=== PATIENT | male | born 1955 | race African-American/Black ===

== ENCOUNTER 2020-08-04 13:26 | Inpatient (IN) | payer OTHER, MEDICAID, SELFPAY ==
--- NOTE | ~2020-08-04 | CT_ITS ---
EXAMINATION: CT HEAD WITHOUT CONTRAST CLINICAL INFORMATION: AMS. COMPARISON: None TECHNIQUE: Contiguous axial imaging was performed from the skull base to vertex without intravenous administration of contrast. This CT examination was performed using dose optimization techniques as appropriate, variously including the following: *Automated exposure control *Adjustment of mA and/or kV according to patient size (this includes techniques or standardized protocols for targeted exams where dose is matched to indication/reason for exam; i.e. extremities or head) *Use of iterative reconstruction technique DLP: 742 mGy-cm FINDINGS: There is no evidence of acute intracranial hemorrhage or territorial infarction. No abnormal mass effect or midline shift is seen. Perez to white matter differentiation is well preserved. No extra-axial fluid collections are identified. The lateral ventricles are symmetrical but moderately enlarged. There is moderate prominence of cortical sulci as well. There is diffuse periventricular hypodensity in both cerebral hemispheres without mass effect or edema. There is midline anterior dural dense calcification. The osseous structures and soft tissues are normal. The mastoid air cells and visualized portions of the paranasal sinuses are well aerated. CT/CT head/brain wo con IMPRESSION: No acute intracranial process seen. There is moderate cerebral volume loss with chronic small vessel microangiopathy.
--- NOTE | ~2020-08-04 | XR_ITS ---
EXAMINATION: XR CHEST CLINICAL INFORMATION: Shortness of breath COMPARISON: None TECHNIQUE: Frontal view of the chest was obtained. FINDINGS: The lungs are hypoinflated which limits assessment. Patchy opacities at the left lung base and right midlung. No significant pleural effusion. No pneumothorax. Heart size is normal. No acute osseous abnormality. XR/XR chest 1V IMPRESSION: Small ill-defined opacities bilaterally, nonspecific. Assessment is limited by suboptimal patient positioning and hypoventilatory state. Consider repeat views with formal PA and lateral full inspiratory radiographs.
[2020-08-04 13:31] VITALS: BP 127/77; PULSE 85; RESP 18; TEMP 36.5; BMI 25.7
--- NOTE | 2020-08-04 13:34 | ED_ITS ---
HPI - Psych General Chief Complaint: Psychiatric Symptoms Stated Complaint: CRISIS Time Seen by Provider: 08/04/20 13:34 Source: EMS and RN notes reviewed Mode of arrival: EMS Limitations: altered mental status History of Present Illness MD complaint: other (refusal to take meds, agitation, aggression) Onset (ago): day(s) (since arrival at facility this week) Duration: intermittent History of same: Yes Relieving factors: none Exacerbating factors: none Context: not taking psychiatric medications Associated psychiatric symptoms: none Associated symptoms: denies other symptoms Treatments prior to arrival: placed on mental health hold Related Data Home Medications Medication Instructions Recorded Confirmed amlodipine 2.5 mg PO DAILY@89908/04/20 08/04/20 aspirin 81 mg PO DAILY@89908/04/20 08/04/20 cholecalciferol (vitamin D3) 25 mcg PO DAILY 08/04/20 08/04/20 divalproex 1,000 mg PO BEDTIME 08/04/20 08/04/20 divalproex [Depakote Sprinkles] 750 mg PO DAILY 08/04/20 08/04/20 escitalopram oxalate 20 mg PO BEDTIME 08/04/20 08/04/20 famotidine 40 mg PO DAILY@89908/04/20 08/04/20 lisinopril 40 mg PO DAILY 08/04/20 08/04/20 olanzapine 5 mg PO DAILY 08/04/20 08/04/20 olanzapine 10 mg PO BEDTIME 08/04/20 08/04/20 simvastatin 20 mg PO BEDTIME 08/04/20 08/04/20 trazodone 100 mg PO BEDTIME 08/04/20 08/04/20 Allergies Allergy/AdvReac Type Severity Reaction Status Date / Time atenolol Allergy Unknown Verified 08/04/20 13:37 duloxetine [From Cymbalta] Allergy Unknown Verified 08/04/20 13:37 ibuprofen Allergy Unknown Verified 08/04/20 13:37 levofloxacin [From Levaquin] Allergy Unknown Verified 08/04/20 13:37 Review of Systems Review of Systems: ROS unable to be obtained due to altered mental status PMFSH Past Medical History Attestation statement: The following information was validated with the patient. Medical History (Updated 08/04/20 @ 15:58 by Maricel Stover DO) Advanced dementia HTN (hypertension) Social History Social History (Updated 08/04/20 @ 14:07 by Maricel Stover DO) Patient Tobacco Use Status: Tobacco use Unknown Use of substances other than those prescribed or required for medical reasons: No Advance Directives: Yes Advance Directives Information Provided: No Advance Directives on File: No Physical Exam Vital Signs: Vital Signs: Last Vital Signs Temp 97.7 F 08/04/20 13:31 Pulse 85 08/04/20 13:31 Resp 18 08/04/20 13:31 BP 127/77 08/04/20 13:31 Body Mass Index 25.7 Appearance: Alert. intermittently agitated tracking staff, opens eyes to voice Eyes: Pupils equal, round and reactive to light. ENT: Pharynx normal. Neck: Normal inspection. Neck supple. CVS: Pulses normal. Respiratory: Breath sounds normal. Abdomen: Soft and non-tender. Skin: Skin warm and dry. Normal skin color. Normal skin turgor. Extremities: No lower extremity edema. No calf ttp Neuro: tracks with eyes. moves all extremities. Course Course Course Narrative: call from Elisabet HOWARD psychiatrist at [facility] - present there for possibly 2 weeks 2 days increased agitation, aggressive, not able to being managed, patient not taking medications, they cannot manage him at their facility. IM zyprexa for aggression ordered, attempting to punch staff Na 158 will need admission after further workup. fluids ordered hospitalists notified 430pm for admission, fluids ordered MDM - Psych MDM Narrative Medical decision making narrative: 64 yo male just [facility] due to medical issue at facility with aggressive behaviors they cannot manage him sent to ED - CM involved, medical clearance, disposition is going to be prolonged at this time Lab Data Result diagrams: 08/04/20 15:09 08/04/20 15:09 Labs: Lab Results 08/04/20 08/04/20 08/04/20 Range/Units 15:09 15:09 15:09 WBC 9.3 (4.8-10.8) X10*3/uL RBC 5.41 (4.60-5.80) X10*6/uL Hgb 15.4 (14.0-18.0) g/dl Hct 48.2 (42-52) % MCV 89.1 (80-98) fL MCH 28.5 (27.0-33.0) pg MCHC 32.0 (31.0-36.0) g/dl RDW 13.6 (11.0-16.0) % Plt Count 117 L (160-400) X10*3/uL MPV 10.5 (9.4-12.4) fL Immature Gran % (Auto) 0.2 (0.0-0.4) % Neut % (Auto) 77.0 H (45-73) % Lymph % (Auto) 13.4 L (20-40) % [place] % (Auto) 9.0 (2-11) % Eos % (Auto) 0.2 (0-4) % Baso % (Auto) 0.2 (0-2) % Lymph # (Auto) 1.3 (1.2-4.9) X10*3/uL [place] # (Auto) 0.8 (0.1-1.2) X10*3/uL Eos # (Auto) 0.0 (0.0-0.4) X10*3/uL Baso # (Auto) 0.0 (0.0-0.2) X10*3/uL Abs Immat Gran (auto) 0.02 (0.00-0.03) X10*3/uL Absolute Neuts (auto) 7.2 (2.0-8.3) X10*3/uL Absolute Nucleated RBC 0.000 (0.0-0.012) X10*3/uL Nucleated RBC % (auto) 0.0 (0.0-0.2) /100WBC PT (10.8-13.0) SEC INR (0.9-1.1) APTT (24.1-38.0) SEC Sodium 158 H (135-145) mmol/L Potassium 3.9 (3.3-5.1) mmol/L Chloride 119 H (96-108) mmol/L Carbon Dioxide 30 H (22-29) mmol/L Anion Gap 13 (12-20) BUN 34 H (9-16) mg/dL Creatinine 1.21 (0.5-1.4) mg/dL Estim Creat Clear Calc 68.5 Estimated GFR > 60 Random Glucose 101 (60-115) mg/dL Calcium 9.6 (8.4-10.2) mg/dL Magnesium (1.6-2.6) mg/dL Total Bilirubin (0.0-1.0) mg/dL Direct Bilirubin (0.0-0.5) mg/dL AST (5-37) U/L ALT (0-40) U/L Alkaline Phosphatase (39-117) U/L Ammonia (13-55) umol/L Total Protein (6.5-8.0) g/dL Albumin (3.5-5.0) g/dL Lipase (8-78) U/L Valproic Acid 66.8 (50.0-100.0) mcg/mL COVID-19 (MARBELLA) (Negative) COVID-19 Clin Com 08/04/20 08/04/20 08/04/20 Range/Units 15:09 15:09 15:09 WBC (4.8-10.8) X10*3/uL RBC (4.60-5.80) X10*6/uL Hgb (14.0-18.0) g/dl Hct (42-52) % MCV (80-98) fL MCH (27.0-33.0) pg MCHC (31.0-36.0) g/dl RDW (11.0-16.0) % Plt Count (160-400) X10*3/uL MPV (9.4-12.4) fL Immature Gran % (Auto) (0.0-0.4) % Neut % (Auto) (45-73) % Lymph % (Auto) (20-40) % [place] % (Auto) (2-11) % Eos % (Auto) (0-4) % Baso % (Auto) (0-2) % Lymph # (Auto) (1.2-4.9) X10*3/uL [place] # (Auto) (0.1-1.2) X10*3/uL Eos # (Auto) (0.0-0.4) X10*3/uL Baso # (Auto) (0.0-0.2) X10*3/uL Abs Immat Gran (auto) (0.00-0.03) X10*3/uL Absolute Neuts (auto) (2.0-8.3) X10*3/uL Absolute Nucleated RBC (0.0-0.012) X10*3/uL Nucleated RBC % (auto) (0.0-0.2) /100WBC PT 17.0 H (10.8-13.0) SEC INR 1.4 H (0.9-1.1) APTT 32.0 (24.1-38.0) SEC Sodium (135-145) mmol/L Potassium (3.3-5.1) mmol/L Chloride (96-108) mmol/L Carbon Dioxide (22-29) mmol/L Anion Gap (12-20) BUN (9-16) mg/dL Creatinine (0.5-1.4) mg/dL Estim Creat Clear Calc Estimated GFR Random Glucose (60-115) mg/dL Calcium (8.4-10.2) mg/dL Magnesium (1.6-2.6) mg/dL Total Bilirubin (0.0-1.0) mg/dL Direct Bilirubin (0.0-0.5) mg/dL AST (5-37) U/L ALT (0-40) U/L Alkaline Phosphatase (39-117) U/L Ammonia 53 (13-55) umol/L Total Protein (6.5-8.0) g/dL Albumin (3.5-5.0) g/dL Lipase (8-78) U/L Valproic Acid (50.0-100.0) mcg/mL COVID-19 (MARBELLA) Negative (Negative) COVID-19 Clin Com See Note 08/04/20 Range/Units 15:09 WBC (4.8-10.8) X10*3/uL RBC (4.60-5.80) X10*6/uL Hgb (14.0-18.0) g/dl Hct (42-52) % MCV (80-98) fL MCH (27.0-33.0) pg MCHC (31.0-36.0) g/dl RDW (11.0-16.0) % Plt Count (160-400) X10*3/uL MPV (9.4-12.4) fL Immature Gran % (Auto) (0.0-0.4) % Neut % (Auto) (45-73) % Lymph % (Auto) (20-40) % [place] % (Auto) (2-11) % Eos % (Auto) (0-4) % Baso % (Auto) (0-2) % Lymph # (Auto) (1.2-4.9) X10*3/uL [place] # (Auto) (0.1-1.2) X10*3/uL Eos # (Auto) (0.0-0.4) X10*3/uL Baso # (Auto) (0.0-0.2) X10*3/uL Abs Immat Gran (auto) (0.00-0.03) X10*3/uL Absolute Neuts (auto) (2.0-8.3) X10*3/uL Absolute Nucleated RBC (0.0-0.012) X10*3/uL Nucleated RBC % (auto) (0.0-0.2) /100WBC PT (10.8-13.0) SEC INR (0.9-1.1) APTT (24.1-38.0) SEC Sodium (135-145) mmol/L Potassium (3.3-5.1) mmol/L Chloride (96-108) mmol/L Carbon Dioxide (22-29) mmol/L Anion Gap (12-20) BUN (9-16) mg/dL Creatinine (0.5-1.4) mg/dL Estim Creat Clear Calc Estimated GFR Random Glucose (60-115) mg/dL Calcium (8.4-10.2) mg/dL Magnesium 2.7 H (1.6-2.6) mg/dL Total Bilirubin 0.9 (0.0-1.0) mg/dL Direct Bilirubin 0.4 (0.0-0.5) mg/dL AST 60 H (5-37) U/L ALT 38 (0-40) U/L Alkaline Phosphatase 76 (39-117) U/L Ammonia (13-55) umol/L Total Protein 7.3 (6.5-8.0) g/dL Albumin 4.0 (3.5-5.0) g/dL Lipase 48 (8-78) U/L Valproic Acid (50.0-100.0) mcg/mL COVID-19 (MARBELLA) (Negative) COVID-19 Clin Com ECG Data Attestation: I personally reviewed and interpreted this ECG as follows: ECG interpretation date: 08/04/20 ECG interpretation time: 15:18 Interpretation: Rate: 76 Rhythm: NSR [place]: left Normal P waves. Normal ROD. Normal QRS complex. ST T wave : normal no SET qTC: normal prior studies: no acute ischemia The study has been interpreted contemporaneously by me. . Discharge Plan Discharge Clinical Impression: Acute hypernatremia Dementia Qualifiers: Dementia type: unspecified type Dementia behavioral disturbance: with behavioral disturbance Qualified Code(s): F03.91 - Unspecified dementia with behavioral disturbance Patient Disposition: Admitted As Inpatient
--- NOTE | 2020-08-04 13:38 | ECG_ITS ---
Test Reason : BASELINE Blood Pressure : / mmHG Vent. Rate : 076 BPM Atrial Rate : 076 BPM P-R Int : 160 ms QRS Dur : 108 ms QT Int : 414 ms P-R-T Axes : 066 -72 063 degrees QTc Int : 465 ms Normal sinus rhythm Left axis deviation Abnormal ECG No previous ECGs available Referred By: Maricel Stover Electronically Signed By:Eris Sagastume
[2020-08-04 14:00] VITALS: RESP 18
[2020-08-04] MEDS: OLANZapine 10 MG VIAL IM (14:06)
--- NOTE | 2020-08-04 14:50 | MHC.CM.ED ---
Received case management consult from Dr Stover. Patient came to the ER due to behaviors at [facility]. Patient was admitted to [facility] from [facility] security halfway due to requiring 24 hour care d/t advanced dementia. Dr Stover spoke with psychiatrist at the facility, who stated they will not take the patient back. T/W left a message for Levi [facility] DON via telephone at [phone], requesting a return telephone call. Rima simmons. Continue to monitor for d/c needs.
--- NOTE | 2020-08-04 14:54 | HE.PHANOTE ---
Pharmacy Consult ? Medication Reconciliation Pharmacy has completed the medication reconciliation and there were no significant medication issues requiring provider attention. Patient has IM orders for both Olanzapine AM and PM doses if patient refuses oral intake. Thanks
[2020-08-04 15:17] LABS: Eosinophils Percent Auto 0.2 % (0-4); Hemoglobin 15.4 g/dl (14.0-18.0); PLT CLUMP 1; Red Cell Distribution Width 13.6 % (11.0-16.0); SCAN SMEAR FLAG 1
[2020-08-04 15:19] LABS: Basophils Percent Auto 0.2 % (0-2); Hematocrit 48.2 % (42-52); Imm Gran Abs Auto 0.02 X10*3/uL (0.00-0.03); Imm Gran Pct Auto 0.2 % (0.0-0.4); Lymphocytes Absolute Auto 1.3 X10*3/uL (1.2-4.9); Lymphocytes Percent Auto 13.4 % (20-40); Mean Corpuscular Hemoglobin 28.5 pg (27.0-33.0); Mean Corpuscular Volume 89.1 fL (80-98); Mean Platelet Volume 10.5 fL (9.4-12.4); Monocytes Absolute Auto 0.8 X10*3/uL (0.1-1.2); Neutrophils Absolute Auto 7.2 X10*3/uL (2.0-8.3); Platelet Count 117 X10*3/uL (160-400); Red Blood Count 5.41 X10*6/uL (4.60-5.80); White Blood Count 9.3 X10*3/uL (4.8-10.8)
--- NOTE | 2020-08-04 15:26 | MHC.CM.ED ---
Received voicemail from VERONICA Sims at [facility] requesting return telephone call. Attempted to call twice but unable to leave a voicemail. Levi is currently in a meeting. Rima Campuzano aware. Continue to monitor for d/c needs.
[2020-08-04 15:27] LABS: INTERNATIONAL NORM RATIO 1.4 (0.9-1.1)
[2020-08-04 15:34] LABS: Ammonia 53 umol/L (13-55)
[2020-08-04 15:35] LABS: MANUAL DIFF FLAG NO
[2020-08-04 15:40] LABS: Alanine Aminotransferase 38 U/L (0-40); Alkaline Phosphatase 76 U/L (39-117); Aspartate Amino Transferase 60 U/L (5-37); Bilirubin Direct 0.4 mg/dL (0.0-0.5); Bilirubin Total 0.9 mg/dL (0.0-1.0); Lipase 48 U/L (8-78); Magnesium 2.7 mg/dL (1.6-2.6); Total Protein 7.3 g/dL (6.5-8.0)
[2020-08-04 15:45] LABS: Valproate 66.8 mcg/mL (50.0-100.0)
[2020-08-04 15:46] LABS: Blood Urea Nitrogen 34 mg/dL (9-16); Calcium 9.6 mg/dL (8.4-10.2); Creatinine Clr Calc Pharmacy 68.5; Estimated Glomerular Filt Rate > 60; Glucose Random 101 mg/dL (60-115)
[2020-08-04 15:50] LABS: Anion Gap 13 (12-20); Carbon Dioxide 30 mmol/L (22-29); Chloride 119 mmol/L (96-108); Potassium 3.9 mmol/L (3.3-5.1); Sodium 158 mmol/L (135-145)
[2020-08-04 15:55] LABS: COVID-19 Test Negative (Negative)
[2020-08-04 16:00] VITALS: RESP 18
[2020-08-04] MEDS: 0.9 % Sodium Chloride 1,000 ML 999 ML IVCONT (17:02)
--- NOTE | 2020-08-04 17:17 | PC.NURSE ---
[place] suicide severity scale completed on chart though this rn unable to actually obtain any information from pt, computer would not allow screen to be closed without filling out information, no option available regarding 'unable to obtain'.
[2020-08-04 18:00] VITALS: RESP 18
[2020-08-04 20:00] VITALS: RESP 18
--- NOTE | 2020-08-04 21:58 | PC.NURSE ---
PT'S BED SOILED W/ URINE, LINENS AND HOSPITAL GOWN CHANGED. THIS RN UNABLE TO STRAIGHT CATH PT, RESISTANCE AT PROSTATE. CONDOM CATH APPLIED. PT IN NAD, NO CHG IN PT STATUS.
--- NOTE | 2020-08-04 22:54 | PM.IMHP ---
History of Present Illness Date of Service: 08/04/20 Chief Complaint: psychiatric symptoms This is a 64-year-old male with dementia and hypertension who presents to the hospital from an outside facility with crisis. Patient is completely obtunded after receiving Zyprexa for being completely aggressive and agitated in the ED and therefore history is mostly obtained from ED physician's note. Patient comes from [facility] presents to the hospital for increased agitation, aggression, not able to being managed by the facility staff, refusing medications. It is seems that the facility was unable to manage patient and therefore sent him to the hospital In the hospital patient was also very aggressive, attempting to punch staff, refusing all medical care. He received IM Zyprexa for aggression, Patient was found to have hypernatremia and therefore being admitted to the medical floor. Unable to obtain review of system is patient attended Review of Systems Review of Systems: Yes Unobtainable due to mental status PMFSH Medical History Advanced dementia HTN (hypertension) Social History Household Members: None Housing: Retirement Do you presently have visiting nurse or other home services: No Unable to assess alcohol history related to: Unable to respond Patient Tobacco Use Status: Tobacco use Unknown Use of substances other than those prescribed or required for medical reasons: Unknown Have you been hit, kicked, punched, or otherwise hurt by someone within the past year? If so, by whom?: No Do you feel safe in your current relationship?: No Current Relationship Is there a partner from a previous relationship who is making you feel unsafe now?: No Are you made to feel afraid or neglected: No Advance Directives: Yes Advance Directives Information Provided: No Advance Directives on File: No Advance Directives Date on File: 08/05/20 Do you have thoughts of harming others: None Do you have a plan to hurt others: No Plan Recently lost weight without trying: No Nutrition Risks: No Nutritional Risk Poor oral hygiene: No Meds Allergies Allergy/AdvReac Type Severity Reaction Status Date / Time atenolol Allergy Unknown Verified 08/04/20 13:37 duloxetine [From Cymbalta] Allergy Unknown Verified 08/04/20 13:37 ibuprofen Allergy Unknown Verified 08/04/20 13:37 levofloxacin [From Levaquin] Allergy Unknown Verified 08/04/20 13:37 Active Medications: Current Medications Generic Name Dose Route Start Last Admin Trade Name Jose Armando PRN Reason Stop Dose Admin Pharmacy Consult 1 each 08/04/20 13:37 Consult Rx Perform Med Rec MISCELLANE ONCE PRN Consult order Home Medications Medication Instructions Recorded Confirmed Last Taken Type amlodipine 2.5 mg PO DAILY@0900 08/04/20 08/04/20 08/04/20 History aspirin 81 mg PO DAILY@0900 08/04/20 08/04/20 08/04/20 History cholecalciferol (vitamin D3) 25 mcg PO DAILY 08/04/20 08/04/20 08/04/20 History divalproex 1,000 mg PO BEDTIME 08/04/20 08/04/20 08/04/20 History divalproex [Depakote Sprinkles] 750 mg PO DAILY 08/04/20 08/04/20 08/04/20 History escitalopram oxalate 20 mg PO BEDTIME 08/04/20 08/04/20 08/03/20 History famotidine 40 mg PO DAILY@0900 08/04/20 08/04/20 08/04/20 History lisinopril 40 mg PO DAILY 08/04/20 08/04/20 08/04/20 History olanzapine 5 mg PO DAILY 08/04/20 08/04/20 08/04/20 History olanzapine 10 mg PO BEDTIME 08/04/20 08/04/20 08/03/20 History simvastatin 20 mg PO BEDTIME 08/04/20 08/04/20 08/03/20 History trazodone 100 mg PO BEDTIME 08/04/20 08/04/20 08/03/20 History Physical Exam Vital Signs and Narrative: Vital Signs: Last Vital Signs Temp 97.7 F 08/04/20 13:31 Pulse 85 08/04/20 13:31 Resp 18 08/04/20 20:00 BP 127/77 08/04/20 13:31 Body Mass Index 25.7 Const: Other: Patient obtunded, but noted to be very aggressive when arriving to the ED Eyes: General: appearance normal, both eyes and all related structures Resp: Effort & Inspection: normal respiratory effort Cardio: Rate: regular rate Rhythm: regular rhythm GI: Palpation (GI): Soft to palpation Auscultation: normal bowel sounds Skin: General skin exam: no rashes or lesions noted Neuro: Cognition (Neuro): normal cognition Extrem: General: Yes normal to inspection and Yes no pedal edema Results Labs CBC and Chem 7: 08/04/20 15:09 08/05/20 01:20 Labs: Laboratory Results - last 24 hr 08/04/20 08/04/20 08/04/20 15:09 15:09 15:09 MCV 89.1 MCH 28.5 MCHC 32.0 RDW 13.6 Plt Count 117 L MPV 10.5 Immature Gran % (Auto) 0.2 Neut % (Auto) 77.0 H Lymph % (Auto) 13.4 L [place] % (Auto) 9.0 Eos % (Auto) 0.2 Baso % (Auto) 0.2 Lymph # (Auto) 1.3 [place] # (Auto) 0.8 Eos # (Auto) 0.0 Baso # (Auto) 0.0 Abs Immat Gran (auto) 0.02 Absolute Neuts (auto) 7.2 Absolute Nucleated RBC 0.000 Nucleated RBC % (auto) 0.0 PT INR APTT Anion Gap 13 Estim Creat Clear Calc 68.5 Estimated GFR > 60 Random Glucose 101 Calcium 9.6 Magnesium Total Bilirubin Direct Bilirubin AST ALT Alkaline Phosphatase Ammonia Total Protein Albumin Lipase Valproic Acid 66.8 COVID-19 (MARBELLA) COVID-[employer] 08/04/20 08/04/20 08/04/20 15:09 15:09 15:09 MCV MCH MCHC RDW Plt Count MPV Immature Gran % (Auto) Neut % (Auto) Lymph % (Auto) [place] % (Auto) Eos % (Auto) Baso % (Auto) Lymph # (Auto) [place] # (Auto) Eos # (Auto) Baso # (Auto) Abs Immat Gran (auto) Absolute Neuts (auto) Absolute Nucleated RBC Nucleated RBC % (auto) PT 17.0 H INR 1.4 H APTT 32.0 Anion Gap Estim Creat Clear Calc Estimated GFR Random Glucose Calcium Magnesium Total Bilirubin Direct Bilirubin AST ALT Alkaline Phosphatase Ammonia 53 Total Protein Albumin Lipase Valproic Acid COVID-19 (MARBELLA) Negative COVID-19 Clin Com See Note 08/04/20 15:09 MCV MCH MCHC RDW Plt Count MPV Immature Gran % (Auto) Neut % (Auto) Lymph % (Auto) [place] % (Auto) Eos % (Auto) Baso % (Auto) Lymph # (Auto) [place] # (Auto) Eos # (Auto) Baso # (Auto) Abs Immat Gran (auto) Absolute Neuts (auto) Absolute Nucleated RBC Nucleated RBC % (auto) PT INR APTT Anion Gap Estim Creat Clear Calc Estimated GFR Random Glucose Calcium Magnesium 2.7 H Total Bilirubin 0.9 Direct Bilirubin 0.4 AST 60 H ALT 38 Alkaline Phosphatase 76 Ammonia Total Protein 7.3 Albumin 4.0 Lipase 48 Valproic Acid COVID-19 (MARBELLA) COVID-19 Clin Com Imaging Radiologist's Impressions: Impressions Head CT 08/04/20 13:38 IMPRESSION: No acute intracranial process seen. There is moderate cerebral volume loss with chronic small vessel microangiopathy. Assessment and Plan (1) Acute hypernatremia: Status: Acute (2) Encephalopathy: Status: Acute This is a 64-year-old male with past medical history of noted severe dementia as well as hypertension who comes in from psychiatric facility for increased aggression and difficulty to manage found to have hypernatremia # hypernatremia - possibly secondary to dehydration - will start him on half NS - follow BMP closely - nephrology consulted # increased aggression/encephalopathy/psychosis - unlikely secondary to hypernatremia - psychiatrist at facility reported to ED physician the patient refusing medications - possibly as a result of his documented advanced dementia/delirium - will consult psychiatry # hypertension - continue lisinopril # mood disorder - continue his home medications DVT prophylaxis Lovenox CPR status: unable to obtain, full code until it can be discussed w him
[2020-08-05] VITALS (21 sets, daily range): BP systolic 111–169; BP diastolic 58–96; PULSE 65–94; RESP 12–19; TEMP 36.7–37.3; O2SAT 95–100
[2020-08-05] MEDS: Sodium Chloride 0.45 % 1,000 ML 100 ML IVCONT (01:06)
[2020-08-05] MEDS: 0.9 % Sodium Chloride Flush 3 ML SYRINGE IVFLUSH (01:29)
[2020-08-05 02:04] LABS: Anion Gap 20 (12-20); Blood Urea Nitrogen 28 mg/dL (9-16); Calcium 9.3 mg/dL (8.4-10.2); Carbon Dioxide 19 mmol/L (22-29); Chloride 123 mmol/L (96-108); Creatinine Clr Calc Pharmacy 69.7; Estimated Glomerular Filt Rate > 60; Glucose Random 82 mg/dL (60-115); Sodium 156 mmol/L (135-145)
--- NOTE | 2020-08-05 02:43 | PC.NURSE ---
0210 lab called with a critical k+-6.0 .blood may have been hemolyzed per lab. notified.
--- NOTE | 2020-08-05 02:48 | PC.NURSE ---
0030 pt came up from er in soft restraints to edward wrists.behavioral restraint ordered obtained from .pt is agitated,aggressive,swearing,confused.1:1 sitter at bedside
--- NOTE | 2020-08-05 04:40 | PC.NURSE ---
0430 pt sleeping.soft wrist restaints released.sitter remains at bedside.
[2020-08-05] MEDS: Enoxaparin Sodium 40 MG/0.4 ML SYRINGE SUBCUT (06:31)
[2020-08-05 06:48] LABS: MANUAL DIFF FLAG NO
[2020-08-05 07:15] LABS: Basophils Percent Auto 0.3 % (0-2); Eosinophils Percent Auto 0.3 % (0-4); Hematocrit 50.5 % (42-52); Hemoglobin 15.6 g/dl (14.0-18.0); Imm Gran Abs Auto 0.05 X10*3/uL (0.00-0.03); Imm Gran Pct Auto 0.4 % (0.0-0.4); Lymphocytes Absolute Auto 1.3 X10*3/uL (1.2-4.9); Lymphocytes Percent Auto 9.9 % (20-40); Mean Corpuscular HGB Conc 30.9 g/dl (31.0-36.0); Mean Corpuscular Hemoglobin 28.4 pg (27.0-33.0); Mean Corpuscular Volume 91.8 fL (80-98); Mean Platelet Volume 10.8 fL (9.4-12.4); Monocytes Absolute Auto 1.3 X10*3/uL (0.1-1.2); Monocytes Percent Auto 9.6 % (2-11); Neutrophils Absolute Auto 10.6 X10*3/uL (2.0-8.3); Neutrophils Percent Auto 79.5 % (45-73); Platelet Count 125 X10*3/uL (160-400); Red Cell Distribution Width 13.8 % (11.0-16.0); White Blood Count 13.4 X10*3/uL (4.8-10.8)
[2020-08-05 07:26] LABS: Anion Gap 16 (12-20); Blood Urea Nitrogen 24 mg/dL (9-16); Calcium 9.3 mg/dL (8.4-10.2); Carbon Dioxide 25 mmol/L (22-29); Chloride 120 mmol/L (96-108); Creatinine Clr Calc Pharmacy 89.2; Estimated Glomerular Filt Rate > 60; Glucose Random 79 mg/dL (60-115); Potassium 4.5 mmol/L (3.3-5.1); Sodium 156 mmol/L (135-145)
--- NOTE | 2020-08-05 08:13 | P.PNIM_ITS ---
Subjective Subjective Date of Service: 08/05/20 Interval History: Seen in f/u for hypernatremia, He is completely demented and is not able to participate in any conversation Review of Systems ROS unable to be obtained due to altered mental status Physical Exam Vital Signs: Vital Signs: Last Vital Signs Temp 98.9 F 08/05/20 07:38 Pulse 76 08/05/20 07:38 Resp 16 08/05/20 07:38 BP 111/58 L 08/05/20 07:38 Pulse Ox 98 08/05/20 07:38 Body Mass Index 25.7 Const: Other: Patient obtunded, but noted to be very aggressive when arriving to the ED Eyes: General: appearance normal, both eyes and all related structures Resp: Effort & Inspection: normal respiratory effort Cardio: Rate: regular rate Rhythm: regular rhythm GI: Palpation (GI): Soft to palpation Auscultation: normal bowel sounds Skin: General skin exam: no rashes or lesions noted Neuro: Cognition (Neuro): normal cognition Extrem: General: Yes normal to inspection and Yes no pedal edema Objective Data Current Medications Generic Name Dose Route Start Last Admin Trade Name Freq PRN Reason Stop Dose Admin Acetaminophen 650 mg 08/05/20 00:34 Acetaminophen 325 Mg Tablet PO Q6H PRN Pain, Mild (Pain Scale 1-3) Amlodipine Besylate 2.5 mg 08/05/20 09:00 Amlodipine Besylate 2.5 Mg Tablet PO DAILY@0900 COUNTS INCLUDE 234 BEDS AT THE [facility] Protocol Aspirin 81 mg 08/05/20 09:00 Aspirin 81 Mg Tab.Chew PO DAILY@0900 COUNTS INCLUDE 234 BEDS AT THE [facility] Atorvastatin Calcium 10 mg 08/05/20 21:00 Atorvastatin Calcium 10 Mg Tablet PO BEDTIME COUNTS INCLUDE 234 BEDS AT THE [facility] Divalproex Sodium 750 mg 08/05/20 09:00 Divalproex Sodium Sprinkles 125 Mg Cap PO DAILY COUNTS INCLUDE 234 BEDS AT THE [facility] Divalproex Sodium 1,000 mg 08/05/20 21:00 Divalproex Sodium Sprinkles 125 Mg CapSpr PO BEDTIME COUNTS INCLUDE 234 BEDS AT THE [facility] Docusate Sodium 100 mg 08/05/20 00:34 Docusate Sodium 100 Mg Capsule PO DAILY PRN Constipation Enoxaparin Sodium 40 mg 08/05/20 07:00 08/05/20 06:31 Enoxaparin Sodium 40 Mg/0.4 Ml Syringe SUBCUT 40 mg Q24H COUNTS INCLUDE 234 BEDS AT THE [facility] Administration Escitalopram Oxalate 20 mg 08/05/20 21:00 Escitalopram Oxalate 20 Mg Tablet PO BEDTIME COUNTS INCLUDE 234 BEDS AT THE [facility] Famotidine 40 mg 08/05/20 09:00 Famotidine 20 Mg Tablet PO DAILY@0900 COUNTS INCLUDE 234 BEDS AT THE [facility] Sodium Chloride 1,000 mls @ 100 mls/hr 08/05/20 00:34 08/05/20 01:06 IVCONT 100 mls/hr .Q10H [facility] Administration Olanzapine 5 mg 08/05/20 09:00 Olanzapine 5 Mg Tablet PO DAILY [facility] Olanzapine 10 mg 08/05/20 21:00 Olanzapine 10 Mg Tablet PO BEDTIME [facility] Olanzapine 10 mg 08/05/20 00:57 Olanzapine 10 Mg Vial IM BEDTIME PRN REFUSAL OF PO DOSE Ondansetron HCl 4 mg 08/05/20 00:34 Ondansetron Hcl 4 Mg/2 Ml Vial IVPUSH Q8H PRN Nausea and Vomiting Pharmacy Consult 1 each 08/04/20 13:37 Consult Rx Perform Med Rec MISCELLANE ONCE PRN Consult order Sodium Chloride 3 ml 08/05/20 00:34 08/05/20 01:29 0.9 % Sodium Chloride Flush 3 Ml Syringe IVFLUSH 3 ml QSHIFT COUNTS INCLUDE 234 BEDS AT THE [facility] Administration Trazodone HCl 100 mg 08/05/20 21:00 Trazodone Hcl 100 Mg Tablet PO BEDTIME COUNTS INCLUDE 234 BEDS AT THE [facility] Vitamin D 25 mcg 08/05/20 09:00 Cholecalciferol (Vitamin D3) 25 Mcg Tablet PO DAILY COUNTS INCLUDE 234 BEDS AT THE [facility] Labs CBC & Chem 7: 08/05/20 06:16 08/05/20 06:16 Assessment and Plan (1) Acute hypernatremia: Status: Acute (2) Encephalopathy: Status: Acute Assessment and Plan: 64-year-old male with past medical history of noted severe dementia as well as hypertension who comes in from psychiatric facility for increased aggression and difficulty to manage found to have hypernatremia # Hypernatremia--d/t free water deficit, dehydation, sodium level is unchanged at 156 -change fluid to D5W from 03/05 NS -Nephrlology consult -Frequent sodium level -Avoid rapid correction. # Hypertension--Normal, continue Norvasc 2.5 # mood disorder - continue Depakote, Celexa, Olanzapine, Trazadoen -Psych to reveiew meds and possible [facility] psych admission - HLD--Lipitor DVT prophylaxis Lovenox Code status: unable to obtain, full code until it can be discusse
[2020-08-05 08:55] LABS: Creatinine Urine 115.73 mg/dL
[2020-08-05 09:01] LABS: Osmolality Urine 686 mosm/kg (373-1093)
--- NOTE | 2020-08-05 10:09 | MHC.CM.PN ---
Addendum entered by Ria Naylor 08/05/20 12:19: CASE DISCUSSED WITH RECOVERY NURSE , SHE INFORMED ME THAT PATIENT GOES TO THE [facility] AT THE [facility] , SHE ALSO USES THE [facility], AND IS ACTIVE WITH [facility] CONFIRMED THIS SHE RECEIVES NURSING 2X Q FOR INSULIN AND MEDICATION MANAGEMENT , DIAGNOSIS ASSESSMENT AND REINFORCEMENT OF SIGN/SYMPTOM MANAGEMENT. SHE WAS ASSIGHNED A NEW DOCTOR AGUSTINA GRIER AT THE [facility] HAS SCHEDULED Appointment for martha zamora for case management office to call and see if we can get her a earlier appointment discharge plan addd [facility] for nsg bid for insulin diagnosis sighn symptom management Original Note: This music writer spoke with Giovani Little and Kerry Perez @ [facility]. They will be taking patient back once medically and psychiatrically cleared. Any questions for [facility] they can be reached @ [phone]
[2020-08-05] MEDS: Dextrose 5 % 1,000 ML 125 ML IVCONT ×3 (12:28→23:50)
[2020-08-05] MEDS: amLODIPine Besylate 2.5 MG TABLET PO (12:30)
--- NOTE | 2020-08-05 12:33 | MHC.CM.PN ---
This song writer spoke with Giovani Little and Kerry Perez @ [facility] [place]. They will be taking patient back once medically and psychiatrically cleared. Any questions for [facility] [place] they can be reached @ [phone]
--- NOTE | 2020-08-05 13:01 | MHC.CM.PN ---
nurse home health care worker note ELECTRONIC MEDICAL RECORD REVIEWED ALONG WITH CASE DISCUSSED WITH STAFF NURSE AND ON MULTIPLE DISCIPLINARY ROUNDS, MET WITH PATIENT , BUT WAS ABLE TO GET ANY MEANINGFUL CONVERSATION FOR ASSESSMENT, CASE MANAGEMENT INITIAL ASSESSMENT GATHERED FROM NURSING HOME HOME INFORMATION AND ELECTRONIC MEDICAL RECORD PATIENT WAS Transferred from [facility] for increased agitation, aggression refusing medications. per documentation patient patient found to have elevated sodium and was admitted to medical surgical floor, per trnasfer patient patients requires assistance with all adls aBD MOBILITY DOCUMENTATED HISTORY OF ( ALZHEMERIS DEMENTIA,BEHAVIORAL DISTURBANCCE, TREMOR, HTN, BRADYCARDIA, ANXIETY, COPD, FALL HISTORY AND OPEN ANGLE GLAUCOMA PATIENT TRANSFER PAPERWORK DOCUMENTED HCP/GUARDIANSHIP HIS SISTER CHRISTEL YANCEY BERNDA ORDER PAPERWORK HCP HAS BEEN ENVOKED AND BRENDA LUDWIG PAPERWORK ALSO WAS SENT AWAITING COPIED OF HCP AND GUARDIANSHIP. PLAN OF CARE PER DOCUMENTATION ON IV FLUIDS MONITORING ALL LABS AND BMP RENAL AND PSYCHIARTY CONSULT . CALLED TO PATIENTS SISTER WINDY AT and MESSAGE LEFT FOR HER TO PLEASE RETURN MY CALL TO REVIEW WITH HER THE MEDICARE IMM D/C PLAN;? PSYCH CLEARANCE IF NEEDED PRIOR TO RETURNN TO [facility] NSG HOME (LTC) GUARDIAN/SISTER -WINDY CHAMBERLAIN HCP HAS BEEN ENVOKED, HAS BRENDA ORDER FOR MEDICATIONS, (AWAITING HCP AND GUARDIANSHIP PAPERWORK FROM [facility]) TRANSPORT BLS ([facility]/MEDICARE WITH BED HOLD
--- NOTE | 2020-08-05 14:42 | CONS_ITS ---
DATE OF SERVICE: 08/05/2020 REASON FOR CONSULTATION: I was called to see this patient to assist in the management of hypernatremia. HISTORY OF PRESENT ILLNESS: To summarize, Sadie is a 64-year-old man with a history of hypertension, dementia, and has extremely poor oral intake. He was brought in because of aggressive behavior and agitation and was found to have severe hypernatremia with a sodium of 160. His oral intake has been poor. He has been started on D5W and sodium is gradually improving. PAST MEDICAL HISTORY: Ongoing medical problems include advanced dementia and hypertension. REVIEW OF SYSTEMS: Not obtainable due to his mentation. All the information obtained from the chart. SOCIAL HISTORY: He is a resident of retirement. MEDICATIONS: At the time of admission included amlodipine, vitamin D, aspirin, Depakote, citalopram, famotidine, lisinopril, olanzapine, simvastatin, trazodone. ALLERGIES: HE IS ALLERGIC TO ATENOLOL, DULOXETINE, IBUPROFEN, LEVOFLOX. PHYSICAL EXAMINATION: GENERAL: Sadie is a 64-year-old man, who is awake, not in any distress, but not verbalizing. HEENT: Mucosa is dry. NECK: Supple. LUNGS: Air entry equal. No rales. HEART: No gallop or rub. ABDOMEN: Soft, nontender. EXTREMITIES: No edema. VITAL SIGNS: Blood pressure , pulse 88. LABORATORY DATA: Hemoglobin 15.6, platelets 125. Sodium 156, potassium 4.5, BUN 24, creatinine 0.93. Urine osmolality 686, fractional excretion less than 1%. IMPRESSION: 64-year-old man with severe dementia, has severe hypernatremia due to free water deficit due to poor oral intake. There is no evidence of diabetes insipidus based on the significantly elevated urine osmolality. RECOMMENDATIONS: My recommendation would be to cut the serum sodium at a rate of 0.5 millimole per liter per hour and not to exceed more than 10 millimoles in a 24 hour period. We will use D5W and monitor serum sodium every 4 hours. In the meantime, we need to increase his oral intake and if the oral intake is poor, he may require a feeding tube. We will follow him as needed. Colt Doherty MD BPA/MODL / [phone]
--- NOTE | 2020-08-05 14:53 | PC.NURSE ---
0900 given trial of water to swallow, kept in mouth, not swallowing. Yankar suction with good eff. 0930 talking, eyes open, words clear at this time. second attempt to give water and drank 100ml water without diff. 1100 attempted to give meds in applesauce, Not swallowing, Had to use yankar suction to mouth, was cooperative. thanked me after and mouth care given. Has been restless at time. calls out occ. No aggressive behavior
--- NOTE | 2020-08-05 15:36 | PM.PSYCN ---
History of Present Illness Date of Service: 08/05/2020 Chief Complaint: hypernatremia,encephalopathy Reason for Consult: psychosis Requesting physician: Jed Carmona Discussed with referring provider: Yes Sources of Information: patient interviewed and chart reviewed Additional Sources of Information: Spoke with nurse at [facility] HPI Narrative: Patient is a 64-year-old male with dementia and hypertension, presented to hospital from SNF with with increased behavioral disturbances, refusing medications. Patient was admitted for hypernatremia and is being medically treated. Psychiatry consult placed due to ED behavior of agressive, attempted to punch staff, refused medical care. Patient had then received IM Zyprexa, however, became obtunded afterwards. SNF had reported patient had been at their facility for 2 weeks, transferred from [facility]. Patient has De [place] Santos Order, and scheduled medications including divalproex 1,000mg at bedtime, and divalproex 750mg daily. Patient also has olanzapine ordered 5mg daily, 10mg at bedtime. Patient has escitalopram 20mg at bedtime, and trazodone 100mg at bedtime. It is unclear as to which medications patient has been refusing in SNF. Valproic acid level obtained, 66.8. Review of Systems Review of Systems Unable to obtain review of systems due to advanced dementia. Yes Unobtainable due to mental status PMFSH Medical History Advanced dementia HTN (hypertension) Narrative: Full psychiatric history unknown. Patient was recently transferred to [facility] from retirement, due to advanced dementia and need for 24 hour care. Chart reviewed. Patient was nonverbal when I attempted to meet with him. He was in behavioral Sitter was present in room. Patient was lying in bed. Appropriate grooming. Restless, moving legs and hands in random movements, clapping hands at times. Minimal, brief eye contact when I introduced myself. Due to AMS, was unable to obtain any information directly from patient. Chart review reveals that patient was incarcerated for many years, and had been receiving psychiatric medications, including mood stabilizer, antipsychotics, and antidepressants, although course of any definitive underlying psychiatric illness and treatment is unknown. Patient does present with advanced dementia, which is chronic in nature rather than acute. He appears to be in behavioral control at this time, since admit to medical unit. He does have a De Los Santos Order in place. Diagnostics Vital Signs (24Hr): Vital Signs - 24 hr 08/04/20 16:00 08/04/20 18:00 08/04/20 20:00 Temperature Pulse Rate Respiratory Rate 18 18 18 Blood Pressure Pulse Oximetry 08/05/20 00:00 08/05/20 00:50 08/05/20 01:05 Temperature 98.2 F Pulse Rate 91 80 Respiratory Rate 18 18 18 Blood Pressure 133/90 H 140/77 H Pulse Oximetry 100 08/05/20 01:20 08/05/20 01:35 08/05/20 01:50 Temperature 98.6 F 98.5 F 98.5 F Pulse Rate 94 94 90 Respiratory Rate 18 19 16 Blood Pressure 125/82 152/91 H 160/95 H Pulse Oximetry 08/05/20 02:05 08/05/20 02:20 08/05/20 02:35 Temperature 98.4 F Pulse Rate 84 89 76 Respiratory Rate 15 16 12 Blood Pressure 148/90 H 143/95 H 138/77 Pulse Oximetry 08/05/20 02:50 08/05/20 03:05 08/05/20 03:20 Temperature Pulse Rate 74 70 85 Respiratory Rate 13 14 14 Blood Pressure 131/72 127/73 147/85 H Pulse Oximetry 97 98 08/05/20 03:35 08/05/20 03:50 08/05/20 04:05 Temperature 98.1 F Pulse Rate 70 69 68 Respiratory Rate 16 16 14 Blood Pressure 115/78 116/77 114/74 Pulse Oximetry 97 08/05/20 04:20 08/05/20 04:35 08/05/20 07:38 Temperature 98.9 F Pulse Rate 70 65 76 Respiratory Rate 14 14 16 Blood Pressure 119/76 129/78 111/58 L Pulse Oximetry 98 08/05/20 11:36 Temperature 98.7 F Pulse Rate 88 Respiratory Rate 18 Blood Pressure 169/96 H Pulse Oximetry 95 Body Mass Index 25.7 Labs Results: 08/05/20 06:16 08/05/20 06:16 Labs: Laboratory Results - last 48 hr 08/04/20 08/04/20 08/04/20 15:09 15:09 15:09 WBC 9.3 RBC 5.41 Hgb 15.4 Hct 48.2 MCV 89.1 MCH 28.5 MCHC 32.0 RDW 13.6 Plt Count 117 L MPV 10.5 Immature Gran % (Auto) 0.2 Neut % (Auto) 77.0 H Lymph % (Auto) 13.4 L Prentiss % (Auto) 9.0 Eos % (Auto) 0.2 Baso % (Auto) 0.2 Lymph # (Auto) 1.3 Prentiss # (Auto) 0.8 Eos # (Auto) 0.0 Baso # (Auto) 0.0 Abs Immat Gran (auto) 0.02 Absolute Neuts (auto) 7.2 Absolute Nucleated RBC 0.000 Nucleated RBC % (auto) 0.0 PT INR APTT Sodium 158 H Potassium 3.9 Chloride 119 H Carbon Dioxide 30 H Anion Gap 13 BUN 34 H Creatinine 1.21 Estim Creat Clear Calc 68.5 Estimated GFR > 60 Random Glucose 101 Calcium 9.6 Magnesium Total Bilirubin Direct Bilirubin AST ALT Alkaline Phosphatase Ammonia Total Protein Albumin Lipase Urine Osmolality Ur Random Sodium Urine Creatinine Valproic Acid 66.8 COVID-19 (MARBELLA) COVID-19 [employer] 08/04/20 08/04/20 08/04/20 15:09 15:09 15:09 WBC RBC Hgb Hct MCV MCH MCHC RDW Plt Count MPV Immature Gran % (Auto) Neut % (Auto) Lymph % (Auto) Prentiss % (Auto) Eos % (Auto) Baso % (Auto) Lymph # (Auto) Prentiss # (Auto) Eos # (Auto) Baso # (Auto) Abs Immat Gran (auto) Absolute Neuts (auto) Absolute Nucleated RBC Nucleated RBC % (auto) PT 17.0 H INR 1.4 H APTT 32.0 Sodium Potassium Chloride Carbon Dioxide Anion Gap BUN Creatinine Estim Creat Clear Calc Estimated GFR Random Glucose Calcium Magnesium Total Bilirubin Direct Bilirubin AST ALT Alkaline Phosphatase Ammonia 53 Total Protein Albumin Lipase Urine Osmolality Ur Random Sodium Urine Creatinine Valproic Acid COVID-19 ([facility]) Negative COVID-19 [employer] See Note 08/04/20 08/05/20 08/05/20 15:09 01:20 06:16 WBC 13.4 H RBC 5.50 Hgb 15.6 Hct 50.5 MCV 91.8 MCH 28.4 MCHC 30.9 L RDW 13.8 Plt Count 125 L MPV 10.8 Immature Gran % (Auto) 0.4 Neut % (Auto) 79.5 H Lymph % (Auto) 9.9 L Prentiss % (Auto) 9.6 Eos % (Auto) 0.3 Baso % (Auto) 0.3 Lymph # (Auto) 1.3 Prentiss # (Auto) 1.3 H Eos # (Auto) 0.0 Baso # (Auto) 0.0 Abs Immat Gran (auto) 0.05 H Absolute Neuts (auto) 10.6 H Absolute Nucleated RBC 0.000 Nucleated RBC % (auto) 0.0 PT INR APTT Sodium 156 H Potassium 6.0 H* D Chloride 123 H Carbon Dioxide 19 L Anion Gap 20 BUN 28 H Creatinine 1.19 Estim Creat Clear Calc 69.7 Estimated GFR > 60 Random Glucose 82 Calcium 9.3 Magnesium 2.7 H Total Bilirubin 0.9 Direct Bilirubin 0.4 AST 60 H ALT 38 Alkaline Phosphatase 76 Ammonia Total Protein 7.3 Albumin 4.0 Lipase 48 Urine Osmolality Ur Random Sodium Urine Creatinine Valproic Acid COVID-19 ([facility]) COVID-19 [employer] 08/05/20 08/05/20 08/05/20 06:16 07:53 07:53 WBC RBC Hgb Hct MCV MCH MCHC RDW Plt Count MPV Immature Gran % (Auto) Neut % (Auto) Lymph % (Auto) Prentiss % (Auto) Eos % (Auto) Baso % (Auto) Lymph # (Auto) Prentiss # (Auto) Eos # (Auto) Baso # (Auto) Abs Immat Gran (auto) Absolute Neuts (auto) Absolute Nucleated RBC Nucleated RBC % (auto) PT INR APTT Sodium 156 H Potassium 4.5 D Chloride 120 H Carbon Dioxide 25 Anion Gap 16 BUN 24 H Creatinine 0.93 Estim Creat Clear Calc 89.2 Estimated GFR > 60 Random Glucose 79 Calcium 9.3 Magnesium Total Bilirubin Direct Bilirubin AST ALT Alkaline Phosphatase Ammonia Total Protein Albumin Lipase Urine Osmolality 686 Ur Random Sodium 94.0 Urine Creatinine 115.73 Valproic Acid COVID-19 ([facility]) COVID-19 [employer] Imaging Radiology Impressions: ITS Impressions Head CT 08/04/20 13:38 IMPRESSION: No acute intracranial process seen. There is moderate cerebral volume loss with chronic small vessel microangiopathy. Mental Status Exam Mental Status Exam Narrative: Due to advanced dementia, unable to obtain a full mental status exam, except for observation. Patient Appearance: Appropriate Level of Consciousness: Disoriented and Restless Patient Behavior: Restless, Distractible, Confused and Poor Eye Contact Behavior Comments: Patient resting in bed, aimless leg movements, clapping hands spontaneously. almost no eye contact. Non-verbal. Patient Cognition Impaired: Yes Ability to Follow Directions: Poor Speech Pattern: Aphasic Medications Medications Current Medications Generic Name Dose Route Start Last Admin Trade Name Freq PRN Reason Stop Dose Admin Acetaminophen 650 mg 08/05/20 00:34 Acetaminophen 325 Mg Tablet PO Q6H PRN Pain, Mild (Pain Scale 1-3) Amlodipine Besylate 2.5 mg 08/05/20 09:00 08/05/20 12:30 Amlodipine Besylate 2.5 Mg Tablet PO 2.5 mg DAILY@0900 [facility] Administration Protocol Aspirin 81 mg 08/05/20 09:00 08/05/20 12:47 Aspirin 81 Mg Tab.Chew PO Not Given DAILY@0900 [facility] Atorvastatin Calcium 10 mg 08/05/20 21:00 Atorvastatin Calcium 10 Mg Tablet PO BEDTIME [facility] Divalproex Sodium 750 mg 08/05/20 09:00 08/05/20 12:50 Divalproex Sodium Sprinkles 125 Mg Cap. PO Not Given DAILY [facility] Divalproex Sodium 1,000 mg 08/05/20 21:00 Divalproex Sodium Sprinkles 125 Mg Cap. PO BEDTIME [facility] Docusate Sodium 100 mg 08/05/20 00:34 Docusate Sodium 100 Mg Capsule PO DAILY PRN Constipation Enoxaparin Sodium 40 mg 08/05/20 07:00 08/05/20 06:31 Enoxaparin Sodium 40 Mg/0.4 Ml Syringe SUBCUT 40 mg Q24H [facility] Administration Escitalopram Oxalate 20 mg 08/05/20 21:00 Escitalopram Oxalate 20 Mg Tablet PO BEDTIME [facility] Famotidine 40 mg 08/05/20 09:00 08/05/20 12:48 Famotidine 20 Mg Tablet PO Not Given DAILY@0900 [facility] Dextrose 1,000 mls @ 125 mls/hr 08/05/20 11:15 08/05/20 12:28 D5w IVCONT 125 mls/hr .Q8H [facility] Administration Olanzapine 5 mg 08/05/20 21:00 Olanzapine 5 Mg Tablet PO BEDTIME [facility] Olanzapine 5 mg 08/05/20 11:18 Olanzapine 5 Mg Tablet PO DAILY PRN anxiety/restlessness Olanzapine 5 mg 08/05/20 12:06 Olanzapine 10 Mg Vial IM BEDTIME PRN per [place] Order Ondansetron HCl 4 mg 08/05/20 00:34 Ondansetron Hcl 4 Mg/2 Ml Vial IVPUSH Q8H PRN Nausea and Vomiting Pharmacy Consult 1 each 08/04/20 13:37 Consult Rx Perform Med Rec MISCELLANE ONCE PRN Consult order Sodium Chloride 3 ml 08/05/20 00:34 08/05/20 09:23 0.9 % Sodium Chloride Flush 3 Ml Syringe IVFLUSH Not Given QSHIFT [facility] Trazodone HCl 100 mg 08/05/20 21:00 Trazodone Hcl 100 Mg Tablet PO BEDTIME [facility] Vitamin D 25 mcg 08/05/20 09:00 08/05/20 12:48 Cholecalciferol (Vitamin D3) 25 Mcg Tablet PO Not Given DAILY [facility] Allergies Allergies Allergy/AdvReac Type Severity Reaction Status Date / Time atenolol Allergy Unknown Verified 08/04/20 13:37 duloxetine [From Cymbalta] Allergy Unknown Verified 08/04/20 13:37 ibuprofen Allergy Unknown Verified 08/04/20 13:37 levofloxacin [From Levaquin] Allergy Unknown Verified 08/04/20 13:37 Assessment & Plan Patient does present with advanced dementia, which is chronic in nature rather than acute. He appears to be in behavioral control at this time, since admit to medical unit. He does have a De Los Santos Order in place. He became obtunded when given IM olanzapine 10mg in ED. RECOMMENDATIONS: Olanzapine decreased to 5mg po at bedtime, 5mg daily prn for increased anxiety/agitation. As per [place] Order, if patient refuses HS po olanzapine, please administer 5mg IM. No other psychiatric medication changes recommended. After careful consideration, It appears that there would be no benefit or need for inpatient level of care / inpatient psychiatric admission at this time, as patient is currently in behavioral control, and his electrolyte imbalance is currently being treated. He is psychiatrically cleared at this time. I have shared this with Summer Guevara of CARE team, and Dr. Greco, via secure messaging system. Thank you for this consultation. If you have any further questions or concerns, please do not hesitate to contact psychiatry. Greater than 50% of the session was spent on counseling and/or coordination of care
--- NOTE | 2020-08-05 16:57 | MHC.CARE ---
CARE Team speaks with Beryl Cespedes, who met with pt today for psych consult and consulted CARE Team. In discussing the case, pt is nt currently in need of inpt psych admission. CARE Team communicates this to Rima Campuzano from [employer], who is working with the sending facility, who is in agreement to take pt back. Given that pt has been seen by psych and pt not in need of bedsearch, CARE Team will not be completing an assessment, unless there is a change in pt's presentation. Please re consult CARE Team once pt is medically cleared if an assessment is needed.
[2020-08-05] MEDS: OLANZapine 10 MG VIAL 5 MG IM (21:51)
[2020-08-06] MEDS: Dextrose 5 % 1,000 ML 125 ML IVCONT ×3 (07:42→23:01)
[2020-08-06 07:49] VITALS: BP 125/75; PULSE 72; RESP 16; TEMP 36.9; O2SAT 99
[2020-08-06] MEDS: Enoxaparin Sodium 40 MG/0.4 ML SYRINGE SUBCUT (09:18)
--- NOTE | 2020-08-06 09:54 | P.PNIM_ITS ---
Subjective Subjective Date of Service: 08/06/20 Interval History: Seen in f/u for hypernatremia, He is completely demented and is not able to participate in any conversation, agitated and comabative at times, refuses to eat Review of Systems Unable to obtain review of systems due to advanced dementia. Physical Exam Vital Signs: Vital Signs: Last Vital Signs Temp 98.4 F 08/06/20 07:49 Pulse 72 08/06/20 07:49 Resp 16 08/06/20 07:49 BP 125/75 08/06/20 07:49 Pulse Ox 99 08/06/20 07:49 Body Mass Index 25.7 Const: Other: totally confused, can communicate with him atall Eyes: General: appearance normal, both eyes and all related structures Resp: Effort & Inspection: normal respiratory effort Cardio: Rate: regular rate Rhythm: regular rhythm GI: Palpation (GI): Soft to palpation Auscultation: normal bowel sounds Skin: General skin exam: no rashes or lesions noted Neuro: Other: confused Extrem: General: Yes normal to inspection and Yes no pedal edema Objective Data Current Medications Generic Name Dose Route Start Last Admin Trade Name Freq PRN Reason Stop Dose Admin Acetaminophen 650 mg 08/05/20 00:34 Acetaminophen 325 Mg Tablet PO Q6H PRN Pain, Mild (Pain Scale 1-3) Amlodipine Besylate 2.5 mg 08/05/20 09:00 08/06/20 09:11 Amlodipine Besylate 2.5 Mg Tablet PO Not Given DAILY@0900 [facility] Protocol Aspirin 81 mg 08/05/20 09:00 08/06/20 09:11 Aspirin 81 Mg Tab.Chew PO Not Given DAILY@0900 [facility] Atorvastatin Calcium 10 mg 08/05/20 21:00 08/05/20 21:39 Atorvastatin Calcium 10 Mg Tablet PO Not Given BEDTIME [facility] Divalproex Sodium 750 mg 08/05/20 09:00 08/06/20 09:11 Divalproex Sodium Sprinkles 125 Mg Cap. PO Not Given DAILY [facility] Divalproex Sodium 1,000 mg 08/05/20 21:00 08/05/20 21:39 Divalproex Sodium Sprinkles 125 Mg Cap. PO Not Given BEDTIME [facility] Docusate Sodium 100 mg 08/05/20 00:34 Docusate Sodium 100 Mg Capsule PO DAILY PRN Constipation Enoxaparin Sodium 40 mg 08/05/20 07:00 08/06/20 09:18 Enoxaparin Sodium 40 Mg/0.4 Ml Syringe SUBCUT 40 mg Q24H [facility] Administration Escitalopram Oxalate 20 mg 08/05/20 21:00 08/05/20 21:40 Escitalopram Oxalate 20 Mg Tablet PO Not Given BEDTIME [facility] Famotidine 40 mg 08/05/20 09:00 08/06/20 09:11 Famotidine 20 Mg Tablet PO Not Given DAILY@0900 [facility] Dextrose 1,000 mls @ 125 mls/hr 08/05/20 11:15 08/06/20 07:42 D5w IVCONT 125 mls/hr .Q8H [facility] Administration Olanzapine 5 mg 08/05/20 21:00 08/05/20 21:40 Olanzapine 5 Mg Tablet PO Not Given BEDTIME [facility] Olanzapine 5 mg 08/05/20 11:18 Olanzapine 5 Mg Tablet PO DAILY PRN anxiety/restlessness Olanzapine 5 mg 08/05/20 12:06 08/05/20 21:51 Olanzapine 10 Mg Vial IM 5 mg BEDTIME PRN Administration per De Los Santos Order Ondansetron HCl 4 mg 08/05/20 00:34 Ondansetron Hcl 4 Mg/2 Ml Vial IVPUSH Q8H PRN Nausea and Vomiting Pharmacy Consult 1 each 08/04/20 13:37 Consult Rx Perform Med Rec MISCELLANE ONCE PRN Consult order Sodium Chloride 3 ml 08/05/20 00:34 08/06/20 07:40 0.9 % Sodium Chloride Flush 3 Ml Syringe IVFLUSH Not Given QSHIFT [facility] Trazodone HCl 100 mg 08/05/20 21:00 08/05/20 21:40 Trazodone Hcl 100 Mg Tablet PO Not Given BEDTIME [facility] Vitamin D 25 mcg 08/05/20 09:00 08/06/20 09:11 Cholecalciferol (Vitamin D3) 25 Mcg Tablet PO Not Given DAILY [facility] Labs CBC & Chem 7: 08/05/20 06:16 08/05/20 06:16 Assessment and Plan (1) Acute hypernatremia: Status: Acute (2) Encephalopathy: Status: Acute Assessment and Plan: 64-year-old male with past medical history of noted severe dementia as well as hypertension who comes in from psychiatric facility for increased aggression and difficulty to manage found to have hypernatremia # Hypernatremia--d/t free water deficit, dehydation, sodium level is unchanged at 156 -On D5W, get lab this morning -Nephrlology consult -follow sodium level -Avoid rapid correction. # Hypertension--Normal, continue Norvasc 2.5 # mood disorder - continue Depakote, Celexa, Olanzapine, Trazadoen -Psych to [facility] and possible [facility] admission Psych has seen him with the following recommendation: Olanzapine decreased to 5mg po at bedtime, 5mg daily prn for increased anx iety/agitation. As per De Los Santos Order, if patient refuses HS po olanzapine, please administer 5mg IM. No other psychiatric medication changes recommended. After careful consideration, It appears that there would be no benefit or need for inpatient level of care / inpatient psychiatric admission at this time, as patient is currently in behavioral control, and his electrolyte imbalance is currently being treated. He is psychiatrically cleared at this time --Beryl Beverly, MARTI - HLD--Lipitor DVT prophylaxis Lovenox I will discuss care with family and decide on goal of care including considera tion of PEG tube for feeding and comfort care Code status: unable to obtain, full code until it can be discusse
[2020-08-06 11:03] LABS: Anion Gap 15 (12-20); Blood Urea Nitrogen 14 mg/dL (9-16); Calcium 8.9 mg/dL (8.4-10.2); Carbon Dioxide 29 mmol/L (22-29); Chloride 109 mmol/L (96-108); Creatinine Clr Calc Pharmacy 82.1; Estimated Glomerular Filt Rate > 60; Glucose Random 102 mg/dL (60-115); Potassium 3.5 mmol/L (3.3-5.1); Sodium 149 mmol/L (135-145)
--- NOTE | 2020-08-06 14:50 | PM.PNNEP ---
Subjective Subjective Date of Service: 08/06/20 Interval history: Events noted. All recent data reviewed Physical Exam Vital Signs: Vital Signs: Last Vital Signs Temp 98.4 F 08/06/20 07:49 Pulse 72 08/06/20 07:49 Resp 16 08/06/20 07:49 BP 125/75 08/06/20 07:49 Pulse Ox 99 08/06/20 07:49 Body Mass Index 25.7 Const: General: No acute distress Neck: Neck: Yes supple Resp: Auscultation: diminished lung sounds Cardio: Jugular venous distension: no JVD GI: Palpation (GI): Soft to palpation Neuro: General: moves all extremities Objective Data Labs CBC & Chem 7: 08/05/20 06:16 08/06/20 09:41 Labs: Laboratory Results - last 24 hr 08/06/20 09:41 Sodium 149 H Potassium 3.5 D Chloride 109 H Carbon Dioxide 29 Anion Gap 15 BUN 14 Creatinine 1.01 Estim Creat Clear Calc 82.1 Estimated GFR > 60 Random Glucose 102 Calcium 8.9 Assessment & Plan Assessment and plan (1) Acute hypernatremia: Status: Acute Assessment and Plan: Serum sodium improving- appropriately getting corrected Continue free water replacement; Amlodipine could be titrated based on BP response Labs AM. Shall closely follow up Time Spent With Patient Time: Total time spent is greater than 50% in coordination of care (as documented) at patient's floor/unit and/or counseling patient: Procedures Date of Service Date of Service: 08/06/20
[2020-08-06 16:00] VITALS: PULSE 100; RESP 20; TEMP 37.4; O2SAT 96
[2020-08-06 19:46] VITALS: TEMP 37.8
[2020-08-06] MEDS: OLANZapine 10 MG VIAL 5 MG IM (21:01)
[2020-08-07] VITALS (17 sets, daily range): BP systolic 82–141; BP diastolic 58–102; PULSE 70–125; RESP 10–20; TEMP 36.3–39; O2SAT 88–95
--- NOTE | 2020-08-07 | ECG_ITS ---
Test Reason : TACYCARDIA Blood Pressure : / mmHG Vent. Rate : 148 BPM Atrial Rate : 156 BPM P-R Int : 000 ms QRS Dur : 088 ms QT Int : 314 ms P-R-T Axes : 000 -58 050 degrees QTc Int : 492 ms Atrial fibrillation with rapid ventricular response Left axis deviation Pulmonary disease pattern Abnormal ECG No previous ECGs available Referred By: Erick Ocampo Electronically Signed By:GARCIA WALL MD
[2020-08-07] MEDS: Enoxaparin Sodium 40 MG/0.4 ML SYRINGE SUBCUT (06:44)
[2020-08-07] MEDS: Dextrose 5 % 1,000 ML 125 ML IVCONT ×3 (06:55→21:53)
--- NOTE | 2020-08-07 09:21 | HO.PM.IMPN ---
Subjective Subjective Date of Service: 08/07/20 Interval History: Seen in f/u for hypernatremia, He is completely demented and is not able to participate in any conversation, remains confused, gurgle not able to eat, hold food in mouth, and need deep sucktioning from time to time and there is concern for aspiration. Review of Systems Unable to obtain review of systems due to advanced dementia. Physical Exam Vital Signs: Vital Signs: Last Vital Signs Temp 98.9 F 08/07/20 07:45 Pulse 88 08/07/20 07:45 Resp 18 08/07/20 07:45 BP 103/58 L 08/07/20 07:45 Pulse Ox 95 08/07/20 00:00 Body Mass Index 25.7 General: Alert, very confused, can become combative when attempting Resp: CTA bilateral CVS: S1,S2,RRR GI: +BS, NT, no distention Skin: No rash Neuro: motor grossly intact Psych: appropriate affect Objective Data Current Medications Generic Name Dose Route Start Last Admin Trade Name Freq PRN Reason Stop Dose Admin Acetaminophen 650 mg 08/05/20 00:34 Acetaminophen 325 Mg Tablet PO Q6H PRN Pain, Mild (Pain Scale 1-3) Amlodipine Besylate 2.5 mg 08/05/20 09:00 08/07/20 07:47 Amlodipine Besylate 2.5 Mg Tablet PO Not Given DAILY@0900 [facility] Protocol Aspirin 81 mg 08/05/20 09:00 08/07/20 07:48 Aspirin 81 Mg Tab.Chew PO Not Given DAILY@0900 [facility] Atorvastatin Calcium 10 mg 08/05/20 21:00 08/06/20 20:58 Atorvastatin Calcium 10 Mg Tablet PO Not Given BEDTIME [facility] Divalproex Sodium 750 mg 08/05/20 09:00 08/07/20 07:48 Divalproex Sodium Sprinkles 125 Mg Cap.Spr PO Not Given DAILY [facility] Divalproex Sodium 1,000 mg 08/05/20 21:00 08/06/20 20:58 Divalproex Sodium Sprinkles 125 Mg Cap.Spr PO Not Given BEDTIME [facility] Docusate Sodium 100 mg 08/05/20 00:34 Docusate Sodium 100 Mg Capsule PO DAILY PRN Constipation Enoxaparin Sodium 40 mg 08/05/20 07:00 08/07/20 06:44 Enoxaparin Sodium 40 Mg/0.4 Ml Syringe SUBCUT 40 mg Q24H [facility] Administration Escitalopram Oxalate 20 mg 08/05/20 21:00 08/06/20 20:59 Escitalopram Oxalate 20 Mg Tablet PO Not Given BEDTIME [facility] Famotidine 40 mg 08/05/20 09:00 08/07/20 07:50 Famotidine 20 Mg Tablet PO Not Given DAILY@0900 [facility] Dextrose 1,000 mls @ 125 mls/hr 08/05/20 11:15 08/07/20 06:55 D5w IVCONT 125 mls/hr .Q8H [facility] Administration Olanzapine 5 mg 08/05/20 21:00 08/06/20 20:59 Olanzapine 5 Mg Tablet PO Not Given BEDTIME [facility] Olanzapine 5 mg 08/05/20 11:18 Olanzapine 5 Mg Tablet PO DAILY PRN anxiety/restlessness Olanzapine 5 mg 08/05/20 12:06 08/06/20 21:01 Olanzapine 10 Mg Vial IM 5 mg BEDTIME PRN Administration per Filiberto Order Ondansetron HCl 4 mg 08/05/20 00:34 Ondansetron Hcl 4 Mg/2 Ml Vial IVPUSH Q8H PRN Nausea and Vomiting Pharmacy Consult 1 each 08/04/20 13:37 Consult Rx Perform Med Rec MISCELLANE ONCE PRN Consult order Sodium Chloride 3 ml 08/05/20 00:34 08/07/20 07:47 0.9 % Sodium Chloride Flush 3 Ml Syringe IVFLUSH Not Given QSHIFT [facility] Trazodone HCl 100 mg 08/05/20 21:00 08/06/20 20:59 Trazodone Hcl 100 Mg Tablet PO Not Given BEDTIME [facility] Vitamin D 25 mcg 08/05/20 09:00 08/07/20 07:48 Cholecalciferol (Vitamin D3) 25 Mcg Tablet PO Not Given DAILY [facility] Labs CBC & Chem 7: 08/05/20 06:16 08/06/20 09:41 Assessment and Plan (1) Acute hypernatremia: Status: Acute (2) Encephalopathy: Status: Acute Assessment and Plan: 64-year-old male with past medical history of noted severe dementia as well as hypertension who comes in from psychiatric facility for increased aggression and difficulty to manage found to have hypernatremia # Hypernatremia--d/t free water deficit, dehydation, sodium level is now normal -On D5W, get lab this morning -Nephrology following -follow sodium level -Avoid rapid correction. # Hypertension--Normal, continue Norvasc 2.5 # mood disorder -continue Depakote, Celexa, Olanzapine, Trazadoen -Psych to [facility] and possible [facility] psych admission Psych has seen him with the following recommendation: Olanzapine decreased to 5mg po at bedtime, 5mg daily prn for increased anxiety/agitation. As per De Los Santos Order, if patient refuses HS po olanzapine, please administer 5mg IM. No other psychiatric medication changes recommended. After careful consideration, It appears that there would be no benefit or need for inpatient level of care / inpatient psychiatric admission at this time, as patient is currently in behavioral control, and his electrolyte imbalance is currently being treated. He is psychiatrically cleared at this time --Dayna Beverly, CLOTH WASHER wrote this on 08/05 HLD--Lipitor DVT prophylaxis Lovenox Dysphagia--he has all signs pointing to aspiration and risk of aspiration and will make NPO at this time, and talk to family/guardian about PEG vs comfort care Code status: unable to obtain, full code until it can be discusse
[2020-08-07 09:32] LABS: Anion Gap 17 (12-20); Blood Urea Nitrogen 17 mg/dL (9-16); Calcium 8.3 mg/dL (8.4-10.2); Carbon Dioxide 20 mmol/L (22-29); Chloride 105 mmol/L (96-108); Creatinine Clr Calc Pharmacy 76.8; Estimated Glomerular Filt Rate > 60; Glucose Random 90 mg/dL (60-115); Sodium 138 mmol/L (135-145)
[2020-08-07 16:57] LABS: ABG Base Excess 3.4 mmol/L; ABG HCO3 25 mmol/L (22-26); ABG pCO2 31 mmHg (32-45); ABG pCO2 TC 31 mmHg (32-45); ABG pH 7.52 (7.35-7.45); ABG pH TC 7.51 (7.35-7.45); ABG pO2 66 mmHg (83-108); ABG pO2 TC 68 (83-108)
[2020-08-07 17:23] LABS: Mean Corpuscular HGB Conc 32.6 g/dl (31.0-36.0); Mean Corpuscular Hemoglobin 28.3 pg (27.0-33.0); PLT CLUMP 1; Red Cell Distribution Width 13.2 % (11.0-16.0)
[2020-08-07 17:25] LABS: Hematocrit 43.9 % (42-52); Hemoglobin 14.3 g/dl (14.0-18.0); Mean Corpuscular Volume 86.9 fL (80-98); Mean Platelet Volume 10.8 fL (9.4-12.4); Platelet Count 120 X10*3/uL (160-400); Red Blood Count 5.05 X10*6/uL (4.60-5.80); White Blood Count 9.8 X10*3/uL (4.8-10.8)
--- NOTE | 2020-08-07 17:34 | P.EN_ITS ---
Event Note Date of Service: 08/07/20 Event Note: Patient status declined becoming tachycardic, drop in O2 sat and increasing respiratory secretions that is requiing constant secretion with mucopururent, copious and amount with wet cough. ABG was difficult to obtain and looks like venous draw. ECG showed AFIB with RVR new, temperature is 102. 2 rectally, HR 130 to 150, BP has dropped 82/69, stat CBC shows normal WBC. CXR shows edward small opacities at bases..lactic is 2.6 . He meets sepsis criteria with likely respiratory source (likely aspirtion pneumonia) Sepsis focus exam performed. Low platlet is chronic Assessment 1 Sepsis with likely aspiration pneumnia Will start IV ampicilin Blood cultures, UA--phlebotomy attempted cultures but was unsucesfull, in parts due to agitation combativenes Try and redo ABG Normal saline per sepis protocol 2. AFIB with RVR--IV cardizem to control Lovenox for stroke preventioon Echocrdiogram Cardiology consult in the morning I spke to the patient's sister Abebe (Health Care proxy) over the phone and updated her and talk about goals of care, she wants everything done to save him .She wants a feeding tube to feed him. We discussed prognosis which guarded to poor. I spoke to another sister in [place](not health care proxy) and she seems to understand the seriousness of the patient's condition but unfortunately is not decision maker but will discuss goals of care with sister. if blood pressure does not improve with NS will need to be transfered to ICU or Respiratory is having to suctioned very frequently to maintain his airway and as such i discussed with ICU about possibility been transfered to ICU and if needed intubation to protect his airway given that he is still full code after conversation with healthcare proxy
[2020-08-07 17:47] LABS: Lactic Acid 2.6 mmol/L (0.5-2.0)
[2020-08-07] MEDS: dilTIAZem HCL 50 MG/10 ML VIAL 10 MG IVPUSH (17:56)
[2020-08-07] MEDS: Enoxaparin Sodium 100 MG/ML SYRINGE 85 MG SUBCUT (18:14)
[2020-08-07] MEDS: 0.9 % Sodium Chloride 2,585.49 ML 2585.49 ML IV (18:33)
[2020-08-07 19:00] LABS: Glucose Urine UA NEG (NEG); Leukocyte Esterase Urine NEG (NEG); Nitrite Urine NEG (NEG); Specific Gravity - Urine <= 1.005 (1.005-1.025); Urine Blood NEG (NEG); Urine Ketones NEG (NEG); Urine Protein NEG (NEG-TRACE)
[2020-08-07 19:01] LABS: Appearance Urine CLEAR; Color Urine YELLOW
[2020-08-07 19:10] LABS: Bacteria Urine TRACE /LPF; RBC Urine 0 /HPF (0); Squamous Epithelial Cell Urine 1+ /LPF; WBC Urine 0-2 /HPF (0-4)
[2020-08-07 19:18] LABS: Reflex Lactate? Lactic Acid Added
[2020-08-07 19:20] LABS: VBG Base Excess -1.5 mmol/L; VBG pCO2 30 mmHg; VBG pH 7.44 (7.32-7.43); VBG pO2 31 mmHg
[2020-08-07 19:21] LABS: VBG HCO3 21 mmol/L (22-26)
[2020-08-07 19:26] LABS: Venous Blood Gas Refer to POC result
--- NOTE | 2020-08-07 19:40 | PC.NURSE ---
1630, patient developed increased respiratory secretions with inability to clear own airway. O2 sat 88%, [place]kar suctioning done with little improvement. Respiratory therapy called for deep suctioning, deep suctioning performed, O2 sat up to 94%. Patient still unable to clear respiratory secretions, MD made aware. CXR, ABG, CBC, EKG, ECHO, Lactic acid, Tropinin ordered. healthcare project manager placed on patient and continuous pulse oximetry. Heart rate elevated. MD at bedside. Rectal temp. 102.2. EKG showed Afib RVR, 10 IVP cardizem given. Order placed for cardizem drip. BP 82/69, MD aware, sepsis protocol ordered. First normal saline bolus hung. Repeat BP 102/58. Order placed to transfer patient to [facility]. O2 sat dropped again to 86%, respiratory therapy called to deep suction, O2 sat up to 95%. Concern of patient not being able to maintain airway and continued drop in O2 sat, ICU SURGICAL TRAINING SPECIALIST at bedside to evaluate patient.
--- NOTE | 2020-08-07 20:02 | W.PM.CCCN ---
History of Present Illness Data of Consult Service Date: 08/07/20 Requesting physician: [facility] Primary Care Provider: Unknown Physician HPI Reason for consult: Hypoxia, hypotension Patient is a 64-year-old male with a history of dementia and hypertension who was sent to the emergency room on 08/04/2020 from a longterm facility due to worsening agitation. It was noted that his sodium was 158. He was admitted into hospital medicine for hypernatremia and dehydration. Today, patient became tachycardic to 150s, temperature elevated to 102.2, SBP in 80s and dropping O2 saturations to mid 80s on room air. As well as new onset AFIB with RVR. According to nursing/respiratory therapist the patient has had increased respiratory secretions requiring frequent nasal suctioning To maintain airway. Patient is not cognitively able to take deep breaths and cough by himself. Laboratory data showed WBC within normal limits, But lactic acid elevated to 2.6. Chest x-ray: small opacities at the bases He was started on Unasyn and 2.5 L of fluids ordered Focused assement performed at 7 pm, the patient is nonverbal, only able to grunt at times. Febrile to 102 Satting 90% on room air, No significant work of breathing noted. Respiratory rate 22. Lungs diminished throughout. Patient?s heart rate 150s, sinus rhythm. Blood pressure manually 104/72. Cap refil WNL. Abdomen soft nontender. Extremities with no edema. skin, dry intact Patient is likely having multiple aspiration event. Hospital medicine physician spoke to sister Abebe (healthcare proxy) regarding goals of care and prognosis. Healthcare proxy will like everything done for the patient. Will admit patient to the ICU for multiple aspiration events and severe sepsis Review of Systems Review of Systems: Unable to perform, due to patient's chronic cognitive impair PMFSH Past Medical History Medical History Advanced dementia HTN (hypertension) Social History Social History Household Members: None Housing: [facility] Do you presently have visiting nurse or other home services: No Unable to assess alcohol history related to: Unable to respond Patient Tobacco Use Status: Tobacco use Unknown Use of substances other than those prescribed or required for medical reasons: Unknown Currently Displaying Signs/Symptoms of Drug Intoxication Withdrawal: No Have you been hit, kicked, punched, or otherwise hurt by someone within the past year? If so, by whom?: No Do you feel safe in your current relationship?: No Current Relationship Is there a partner from a previous relationship who is making you feel unsafe now?: No Are you made to feel afraid or neglected: No Advance Directives: Yes Advance Directives Information Provided: No Advance Directives on File: No Advance Directives Date on File: 08/05/20 Do you have thoughts of harming others: None Do you have a plan to hurt others: No Plan Recently lost weight without trying: No Nutrition Risks: No Nutritional Risk Poor oral hygiene: No Meds Allergies Allergy/AdvReac Type Severity Reaction Status Date / Time atenolol Allergy Unknown Verified 08/04/20 13:37 duloxetine [From Cymbalta] Allergy Unknown Verified 08/04/20 13:37 ibuprofen Allergy Unknown Verified 08/04/20 13:37 levofloxacin [From Levaquin] Allergy Unknown Verified 08/04/20 13:37 Active Medications: Current Medications Generic Name Dose Route Start Last Admin Trade Name Freq PRN Reason Stop Dose Admin Acetaminophen 650 mg 08/05/20 00:34 Acetaminophen 325 Mg Tablet PO Q6H PRN Pain, Mild (Pain Scale 1-3) Amlodipine Besylate 2.5 mg 08/05/20 09:00 08/07/20 07:47 Amlodipine Besylate 2.5 Mg Tablet PO Not Given DAILY@0900 [facility] Protocol Aspirin 81 mg 08/05/20 09:00 08/07/20 07:48 Aspirin 81 Mg Tab.Chew PO Not Given DAILY@0900 [facility] Atorvastatin Calcium 10 mg 08/05/20 21:00 08/06/20 20:58 Atorvastatin Calcium 10 Mg Tablet PO Not Given BEDTIME [facility] Divalproex Sodium 750 mg 08/05/20 09:00 08/07/20 07:48 Divalproex Sodium Sprinkles 125 Mg Cap. PO Not Given DAILY [facility] Divalproex Sodium 1,000 mg 08/05/20 21:00 08/06/20 20:58 Divalproex Sodium Sprinkles 125 Mg Cap PO Not Given BEDTIME [facility] Docusate Sodium 100 mg 08/05/20 00:34 Docusate Sodium 100 Mg Capsule PO DAILY PRN Constipation Enoxaparin Sodium 85 mg 08/07/20 19:00 08/07/20 18:14 Enoxaparin Sodium 100 Mg/Ml Syringe 1 mg/kg (85 mg) 85 mg SUBCUT Administration Q12H [facility] Escitalopram Oxalate 20 mg 08/05/20 21:00 08/06/20 20:59 Escitalopram Oxalate 20 Mg Tablet PO Not Given BEDTIME [facility] Famotidine 40 mg 08/05/20 09:00 08/07/20 07:50 Famotidine 20 Mg Tablet PO Not Given DAILY@0900 [facility] Dextrose 1,000 mls @ 125 mls/hr 08/05/20 11:15 08/07/20 18:18 D5w IVCONT 0 mls/hr .Q8H [facility] Infusion Diltiazem HCl 125 mg/ Sodium 125 mls @ 0 mls/hr 08/07/20 18:15 Chloride IVCONT .Q0M [facility] Protocol Per Protocol Ampicillin Sodium/Sulbactam 100 mls @ 200 mls/hr 08/07/20 20:00 Sodium 3 gm/ Sodium Chloride IV Q6H [facility] Olanzapine 5 mg 08/05/20 21:00 08/06/20 20:59 Olanzapine 5 Mg Tablet PO Not Given BEDTIME [facility] Olanzapine 5 mg 08/05/20 11:18 Olanzapine 5 Mg Tablet PO DAILY PRN anxiety/restlessness Olanzapine 5 mg 08/05/20 12:06 08/06/20 21:01 Olanzapine 10 Mg Vial IM 5 mg BEDTIME PRN Administration per De Los Santos Order Ondansetron HCl 4 mg 08/05/20 00:34 Ondansetron Hcl 4 Mg/2 Ml Vial IVPUSH Q8H PRN Nausea and Vomiting Pharmacy Consult 1 each 08/04/20 13:37 Consult Rx Perform Med Rec MISCELLANE ONCE PRN Consult order Sodium Chloride 3 ml 08/05/20 00:34 08/07/20 14:54 0.9 % Sodium Chloride Flush 3 Ml Syringe IVFLUSH Not Given QSHIFT [facility] Trazodone HCl 100 mg 08/05/20 21:00 08/06/20 20:59 Trazodone Hcl 100 Mg Tablet PO Not Given BEDTIME [facility] Vitamin D 25 mcg 08/05/20 09:00 08/07/20 07:48 Cholecalciferol (Vitamin D3) 25 Mcg Tablet PO Not Given DAILY [facility] Home Medications Medication Instructions Recorded Confirmed Last Taken Type amlodipine 2.5 mg PO DAILY@89908/04/20 08/04/20 08/04/20 History aspirin 81 mg PO DAILY@89908/04/20 08/04/20 08/04/20 History cholecalciferol (vitamin D3) 25 mcg PO DAILY 08/04/20 08/04/20 08/04/20 History divalproex 1,000 mg PO BEDTIME 08/04/20 08/04/20 08/04/20 History divalproex [Depakote Sprinkles] 750 mg PO DAILY 08/04/20 08/04/20 08/04/20 History escitalopram oxalate 20 mg PO BEDTIME 08/04/20 08/04/20 08/03/20 History famotidine 40 mg PO DAILY@89908/04/20 08/04/20 08/04/20 History lisinopril 40 mg PO DAILY 08/04/20 08/04/20 08/04/20 History olanzapine 5 mg PO DAILY 08/04/20 08/04/20 08/04/20 History olanzapine 10 mg PO BEDTIME 08/04/20 08/04/20 08/03/20 History simvastatin 20 mg PO BEDTIME 08/04/20 08/04/20 08/03/20 History trazodone 100 mg PO BEDTIME 08/04/20 08/04/20 08/03/20 History Physical Exam Vital Signs: Vital Signs: Last Vital Signs Temp 99.1 F 08/07/20 19:48 Pulse 90 08/07/20 19:48 Resp 18 08/07/20 19:48 BP 106/70 08/07/20 19:48 Pulse Ox 94 08/07/20 19:48 Body Mass Index 25.7 Results Labs CBC & Chem 7: 08/07/20 17:11 08/07/20 08:54 Labs: Short CBC 08/07/20 Range/Units 17:11 WBC 9.8 (4.8-10.8) X10*3/uL Hgb 14.3 (14.0-18.0) g/dl Hct 43.9 (42-52) % Plt Count 120 L (160-400) X10*3/uL BMP 08/07/20 08:54 Sodium 138 Potassium 4.0 Chloride 105 Carbon Dioxide 20 L BUN 17 H Creatinine 1.08 Calcium 8.3 L D Urine 08/07/20 08/07/20 Range/Units 18:46 18:47 Urine Color Cancelled YELLOW Urine Appearance Cancelled CLEAR Urine pH Cancelled 6.0 Ur Specific [place] Cancelled <= 1.005 Urine Protein Cancelled NEG Urine Glucose (UA) Cancelled NEG Assessment and Plan (1) Septic shock: Status: Acute Neuro: Cardiac: Septic shock,Source possibly aspiration pneumonia. Hypotension improving after fluid bolus Will continue antibiotics. Wean off pressors when appropriate. New onset AFIB. Received cardizem 10mg IV and placed on cardizem drip. On my assessment patient SNR. Wean off cardizem as tolerated Pulmonary: Acute respiratory distress with hypoxemia- Chest x-ray with Bibasilar opacities. Requiring frequent suctioning due to unable to maintain secretions. Continue antibiotics Renal: YARELIS- most likely related to hypoperfusion, nonoliguric. 2.5 L in the floor. Continue to check renal induces and urine output Endo: No acute issues. GI: no acute issues ID: septic shock from aspiration pneumonia. On Unasyn now. Cont abx Heme/Onc: No acute issues. Psych: No acute issues. Miscellaneous: no acute issues Diet: NPO prophylaxis: Compression devices due to chronic low platelets. No GI prophylaxis at this time Critical care time: X 60 minutes of critical care time Code status: FULL code Case discussed with attending Dr Hitchcock (2) Aspiration pneumonia: Status: Acute (3) Afib: Status: Acute (4) Aspiration into airway: Status: Acute
[2020-08-07 21:11] LABS: ~Lactic Acid-LAB USE ONLY 1.2 mmol/L (0.5-2.0)
[2020-08-07] MEDS: Ampicillin Sodium/Sulbactam Na 3 GM in 0.9 % Sodium Chloride 100 ML IV (21:14)
[2020-08-07 23:18] LABS: ABG Refer to POC result
[2020-08-08] VITALS (25 sets, daily range): BP systolic 88–112; BP diastolic 41–90; PULSE 66–85; RESP 10–22; TEMP 36.3–36.7; O2SAT 91–98
[2020-08-08] MEDS: Ampicillin Sodium/Sulbactam Na 3 GM in 0.9 % Sodium Chloride 100 ML IV ×4 (02:07→21:56)
[2020-08-08] MEDS: 0.9 % Sodium Chloride Flush 3 ML SYRINGE IVFLUSH ×3 (02:07→15:42)
[2020-08-08] MEDS: Dextrose 5 % 1,000 ML 125 ML IVCONT (06:07)
[2020-08-08 06:32] LABS: Hematocrit 38.3 % (42-52); PLT CLUMP 1
--- NOTE | 2020-08-08 06:32 | PC.NURSE ---
pt transferred from med/surg d/t concerns of aspiration and airway patency. pt is awake but confused and agitated. his fists are clenched he has taken swings at staff with closed fists. he is not cooperative. his speech is profane and rambling. he seems to be speaking gibberish. he will spontaneously clap his hands. he has a great deal of muscle rigidity. skin surfaces intact. there is some swelling and redness in left arm. venous access is poor. pt refuses to wear supplemental o2. he will remove any o2 applied. upper airway congestion is noted. oropharyngeal suctioning performed with a large amount of loose cream colored sputum removed from airway. breath sounds are congested. ecg displays sr. sbp low 100's. abdomen benign. incontinent of urine.septic protocol carried out ns x 30ml/kg(2600 ml) lactate 2.6 which has decreased to 1.7 following iv fluids. unasyn 3 grams iv given.
[2020-08-08 06:34] LABS: Hemoglobin 12.5 g/dl (14.0-18.0); Mean Corpuscular HGB Conc 32.6 g/dl (31.0-36.0); Mean Corpuscular Hemoglobin 28.2 pg (27.0-33.0); Mean Corpuscular Volume 86.3 fL (80-98); Platelet Count 131 X10*3/uL (160-400); Red Blood Count 4.44 X10*6/uL (4.60-5.80); Red Cell Distribution Width 13.2 % (11.0-16.0); White Blood Count 9.3 X10*3/uL (4.8-10.8)
[2020-08-08 06:42] LABS: Anion Gap 13 (12-20); Blood Urea Nitrogen 13 mg/dL (9-16); Calcium 7.7 mg/dL (8.4-10.2); Carbon Dioxide 26 mmol/L (22-29); Chloride 107 mmol/L (96-108); Creatinine Clr Calc Pharmacy 89.2; Estimated Glomerular Filt Rate > 60; Glucose Random 103 mg/dL (60-115); Potassium 3.5 mmol/L (3.3-5.1); Sodium 142 mmol/L (135-145)
--- NOTE | 2020-08-08 07:30 | CA_ITS ---
Transthoracic Echocardiogram Patient (Last, First, Middle): Sadie Sharp, Gender: Male Date of : 1955 Age: 64 Procedure Date: 08/08/2020 Procedure Type: Transthoracic Echocardiogram Location: [facility] Height: 182.88 cm Weight: 86.18 kg BSA: 2.08 m2 Heart Rate: bpm BP: 100 / 72 mmHg Software Programmer: CHEPE Hampton MD: Erick Troncoso MD Timekeeper: Greg Watkins MD Symptoms: AFIB Study Quality: Poor ECG Rhythm: Sinus Conclusions: - 1. Technically limited study 2. LV systolic function on some views appears to be normal with LVEF of greater than 60% 3. Limited evaluation of cardiac valves with valvular Doppler within normal limits 4. Normal calculated RV systolic pressure Findings Left Ventricle The left ventricle was not well visualized. Regional wall motion abnormalities can not be excluded due to suboptimal endocardial definition. Spectral Doppler is indicative of an impaired relaxation filling pattern. On some views LV systolic function appears to be normal with LVEF of greater than 60% Right Ventricle The right ventricle was not well visualized. Atria The left atrium was not well visualized. Interatrial shunt cannot be excluded. The right atrium was not well visualized. Aortic Valve The aortic valve structure and function is likely normal. There is no aortic valve stenosis. There is no aortic valve regurgitation. Mitral Valve The mitral valve was not well visualized. There is no mitral valve regurgitation. There is no mitral valve stenosis. Tricuspid Valve The tricuspid valve was not well visualized. There is trace tricuspid valve regurgitation. The right ventricular systolic pressure is normal. Great Vessels The aorta was not well visualized. The pulmonary artery was not well visualized. Venous The inferior vena cava was not well visualized. Pericardium/Pleural The pericardium was not well visualized. Prior Study Comparison No prior study available for comparison. Recommendations, Care & Conclusions Recommend contrast in the future to improve endocardial definition. Measurements 2D Linear Measurements IVSd: 1.21 0.6-0.9/0.6-1.0 cm LVIDd: 5.09 3.9-5.3/4.2-5.9 cm LVIDd Index: 2.45 2.4-3.2/2.2-3.1 cm/m2 LVIDs: 3.38 2.0-3.6 cm LVPWd: 1.23 0.7-1.1 cm Ao Root: 3.40 2.1-3.5 cm LA Diam: 3.60 2.7-3.8/3.0-4.0 cm LAIDs Index: 1.73 1.5-2.3 cm/m2 LV Mass: 306.89 67-162/88-224 g LV Mass Index: 147.54 43-95/49-115 g/m2 LVOT Diam: 2.40 3.0+(-)1.3 cm Mitral Valve MV Pk E: 0.47 MV PK A: 0.56 MV Decel Time: 296.00 E/A: 0.80 E'Lateral: 8.16 E'Medial: 6.74 E/E' Med: 7.00 E/E' Lat: 5.80 PHT: 87.00 MVA PHT: 2.53 Decel Pike: 1.59 Aortic Valve AoV Pk Darnell: 1.29 AoV Mn Darnell: 0.88 AoV VTI: 0.25 AoV Pk Grad: 7.00 Aov Mn Grad: 4.00 ALEX Cont.VTI: 2.14 LVOT LVOT Pk Darnell: 0.62 LVOT Mn Darnell: 0.42 LVOT VTI: 0.12 LVOT Pk Grad: 2.00 LVOT Mn Grad: 1.00 LVOT Diam: 2.40 LVOT Area: 4.52 Diastolic Function MV Pk E: 0.47 MV Pk A: 0.56 E/A: 0.80 E'Medial: 6.74 E/E' Med: 7.00 E' Laterial: 8.16 E/E' Lat: 5.80 Tricuspid Valve TR Pk Darnell: 1.81 TR Pk Grad: 13.00 RA Press: 3.00 RVSP: 16.00 Great Vessels Aorta Ao Root-2D: 3.40 2.0-3.7 cm Pulmonary Valve PV Pk Darnell: 1.02 Peak PV Grad: 4.00 Updated in Other Vendor System with Status of Final Greg Watkins MD electronically signed on 08/08/2020 4:21:53 PM with status of Final
[2020-08-08 09:05] LABS: VBG Base Excess -1.5 mmol/L; VBG HCO3 21 mmol/L (22-26); VBG pCO2 30 mmHg; VBG pH 7.44 (7.32-7.43); VBG pO2 31 mmHg
[2020-08-08] MEDS: Enoxaparin Sodium 100 MG/ML SYRINGE 85 MG SUBCUT (09:25)
--- NOTE | 2020-08-08 11:32 | PM.CCPN ---
Subjective Subjective Date of Service: 08/08/20 Interval History: Mr Sharp was transferred down to the ICU yesterday because of hypoxemia and hypotension. The patient is a 64-year-old male with a history of dementia and hypertension who was sent to the emergency room on 08/04/2020 from [facility] (a half-way facility) due to worsening agitation. In the ED his sodium was 158. BUN/creat were 28/1.2. He was admitted to Medicine for hypernatremia and dehydration. On the monroy, the patient was ?completely demented and is not able to participate in any conversation, agitated and comabative at times, refuses to eat.? His Depakote and olanzapine were continued. He was gurgling and not able to eat, needed prn deep suctioning. Dr. Troncoso planned to talk with family about PEG vs comfort care. Yesterday afternoon the patient became tachycardic and hypoxemic, with increasing respiratory secretions requiring constant secretion with copious mucopururent secretions with wet cough, with new AFIB with RVR, and new temperature to 102.2?. Then BP dropped to 82/69. WBC was down, but lactate was 2.6. CXR showed (very) subtle small opacities in right mid lung and left base, with obscured left hemidiaphr. Was felt to have aspirated. Was transferred to ICU and started on Unasyn after blood cxs were drawn. Was also given fluids and started on Cardizem and Lovenox for the afib. Healthcare proxy asked that everything done to save him , including a feeding tube. The patient converted back to SR about 8pm last night and has been in sinus rhythm since then. BP all day today has been 90?s-100?s (baseline 110-160 systolic). He?s been breathing easy with Sat?s mid-high 90?s on room air since arrival to ICU, which other than yesterday?s episode, is the same as he was since admission. He?s been afebrile since admission to the ICU. On exam today, the patient is fully awake and looks at me but does not respond appropriately to questions or commands. He talks but his speech is unintelligible. He looks thoroughly nontoxic. He has a wet cough and is clearly handling his secretions imperfectly, although he is able to swallow pills ground up in nectar-thick liquids, and did pass a swallow eval for mechanically ground solids and nectar thick liquids. No JVD at 45?. As best I can tell, chest is CTA (between coughs) and exp phase is normal. Regular rate and rhythm, with normal-sounding S1 and S2, with no murmur or gallops. The abdomen is benign. He has no peripheral edema. LABORATORY DATA: As below. Notably, white count is still normal, hemoglobin is down to 12.5 after volume resuscitation, BUN and creatinine are down to 13/0.9, and follow-up lactate last night after volume resuscitation was 1.2. IMPRESSION: 1. Severe underlying dementia. Likely getting worse, possibly reaching a critical stage that is now starting to impact his swallowing integrity. At at this very moment, it looks like he is medicated perfectly appropriately. I.e., it does not seem that over medication is the reason for his swallowing difficulty. 2. The episode yesterday was undoubtedly an episode of aspiration. I am doubtful that he needs treatment with antibiotics though. If his condition remains the same tomorrow, I would discontinue the Unasyn. joint terminal attack controller, he?ll probably need a PEG. No urgercy for it to be done right now. 3. Blood pressure now is still a little lower than usual. He may be still a little hypovolemic, but given that his BUN and creatinine are lower than yesterday, I do not see the need for further volume resuscitation. Clinically, he is not septic. 4. Brief episode yesterday of atrial fibrillation. I see no need for further treatment, and no need for anticoagulation, other than regular Lovenox dosing for pharmacologic DVT prophylaxis. 5. Behavioral control. Would suggest continuing current medicatins, with the Zyprexa reduced to 5mg bid. 6. Hypernatremia. Would continue with LR at 80cc/hr. Stable for transfer back to [facility]. I will sign out to the hospitalist. Time: 60 min. ([id number]) Critical Care Time (minutes): 0 Physical Exam Vital Signs: Vital Signs: Last Vital Signs Temp 97.7 F 08/08/20 08:00 Pulse 71 08/08/20 10:56 Resp 11 L 08/08/20 10:56 BP 91/53 L 08/08/20 10:56 Pulse Ox 94 08/08/20 10:56 Body Mass Index 25.7 Objective Data Labs CBC & Chem 7: 08/08/20 05:48 08/08/20 05:48 Labs: Laboratory Results - last 24 hr 08/07/20 08/07/20 08/07/20 15:14 15:14 16:50 WBC RBC Hgb Hct MCV MCH MCHC RDW Plt Count MPV Absolute Nucleated RBC Nucleated RBC % (auto) APTT O2 Saturation 93.0 ABG pH at Pt Temp 7.52 H ABG pH (Temp Correct) 7.51 H ABG pCO2 at Pt Temp 31 L ABG pCO2 (Temp Corrct 31 L ABG pO2 at Pt Temp 66 L ABG pO2 (Temp Correct 68 L ABG HCO3 25 ABG Base Excess (Actual) 3.4 VBG pH VBG pCO2 VBG pO2 VBG HCO3 VBG O2 Saturation VBG Base Excess Sodium Potassium Chloride Carbon Dioxide Anion Gap BUN Creatinine Estim Creat Clear Calc Estimated GFR Random Glucose Lactic Acid 2.6 H* Lactic Acid Fup @ 2Hr Calcium Troponin I High Sens 15.0 Urine Color Urine Appearance Urine pH Ur Specific [place] Urine Protein Urine Glucose (UA) Urine Ketones Urine Blood Urine Nitrite Ur Leukocyte Esterase Urine RBC Urine WBC Ur Squamous Epith Cells Urine Bacteria 08/07/20 08/07/20 08/07/20 17:11 18:46 18:47 WBC 9.8 RBC 5.05 Hgb 14.3 Hct 43.9 MCV 86.9 MCH 28.3 MCHC 32.6 RDW 13.2 Plt Count 120 L MPV 10.8 Absolute Nucleated RBC 0.000 Nucleated RBC % (auto) 0.0 APTT O2 Saturation ABG pH at Pt Temp ABG pH (Temp Correct) ABG pCO2 at Pt Temp ABG pCO2 (Temp Corrct ABG pO2 at Pt Temp ABG pO2 (Temp Correct ABG HCO3 ABG Base Excess (Actual) VBG pH VBG pCO2 VBG pO2 VBG HCO3 VBG O2 Saturation VBG Base Excess Sodium Potassium Chloride Carbon Dioxide Anion Gap BUN Creatinine Estim Creat Clear Calc Estimated GFR Random Glucose Lactic Acid Lactic Acid Fup @ 2Hr Calcium Troponin I High Sens Urine Color Cancelled YELLOW Urine Appearance Cancelled CLEAR Urine pH Cancelled 6.0 Ur Specific [place] Cancelled <= 1.005 Urine Protein Cancelled NEG Urine Glucose (UA) Cancelled NEG Urine Ketones Cancelled NEG Urine Blood Cancelled NEG Urine Nitrite Cancelled NEG Ur Leukocyte Esterase Cancelled NEG Urine RBC 0 Urine WBC 0-2 Ur Squamous Epith Cells 1+ Urine Bacteria TRACE 08/07/20 08/07/20 08/07/20 19:03 19:03 19:09 WBC RBC Hgb Hct MCV MCH MCHC RDW Plt Count MPV Absolute Nucleated RBC Nucleated RBC % (auto) APTT 41.0 H D O2 Saturation ABG pH at Pt Temp ABG pH (Temp Correct) ABG pCO2 at Pt Temp ABG pCO2 (Temp Corrct ABG pO2 at Pt Temp ABG pO2 (Temp Correct ABG HCO3 ABG Base Excess (Actual) VBG pH 7.44 H 7.44 H VBG pCO2 30 30 VBG pO2 31 31 VBG HCO3 21 L 21 L VBG O2 Saturation 55.0 55.0 VBG Base Excess -1.5 -1.5 Sodium Potassium Chloride Carbon Dioxide Anion Gap BUN Creatinine Estim Creat Clear Calc Estimated GFR Random Glucose Lactic Acid Lactic Acid Fup @ 2Hr Calcium Troponin I High Sens Urine Color Urine Appearance Urine pH Ur Specific [place] Urine Protein Urine Glucose (UA) Urine Ketones Urine Blood Urine Nitrite Ur Leukocyte Esterase Urine RBC Urine WBC Ur Squamous Epith Cells Urine Bacteria 08/07/20 08/08/20 08/08/20 20:45 05:48 05:48 WBC 9.3 RBC 4.44 L Hgb 12.5 L Hct 38.3 L MCV 86.3 MCH 28.2 MCHC 32.6 RDW 13.2 Plt Count 131 L MPV 11.0 Absolute Nucleated RBC 0.000 Nucleated RBC % (auto) 0.0 APTT O2 Saturation ABG pH at Pt Temp ABG pH (Temp Correct) ABG pCO2 at Pt Temp ABG pCO2 (Temp Corrct ABG pO2 at Pt Temp ABG pO2 (Temp Correct ABG HCO3 ABG Base Excess (Actual) VBG pH VBG pCO2 VBG pO2 VBG HCO3 VBG O2 Saturation VBG Base Excess Sodium 142 Potassium 3.5 Chloride 107 Carbon Dioxide 26 Anion Gap 13 BUN 13 Creatinine 0.93 Estim Creat Clear Calc 89.2 Estimated GFR > 60 Random Glucose 103 Lactic Acid Lactic Acid Fup @ 2Hr 1.2 Calcium 7.7 L D Troponin I High Sens Urine Color Urine Appearance Urine pH Ur Specific [place] Urine Protein Urine Glucose (UA) Urine Ketones Urine Blood Urine Nitrite Ur Leukocyte Esterase Urine RBC Urine WBC Ur Squamous Epith Cells Urine Bacteria
--- NOTE | 2020-08-08 13:14 | MHC.SL.SWA ---
Speech Pathologist Impression: Risk of Aspiration Oralpharyngeal Dysphagia Risk of Aspiration Due to: History of Pneumonia Poor PO Intake Reduced Cognition Dysphasia Diet Status: Upgrade Liquid Consistency and Strategies for Safe Swallow: Liquid Intake Recommendation: [place] Thick Liquid Intake Strategies: Small Sips Solid Food Consistency: Dietary Recommendations: Grnd/Mech Altered (NDD2) Oral Medication Intake: Crushed with Puree Compensatory Strategies and Precautions to be Taken for Safe Swallow: Sitting Upright (90 deg) Small Bites and Sips Alternate Liquids/Solids Rate of Ingestion Change Avoid Specific Foods Supervision While Eating and Drinking for Safe Swallow: Total Assistance Foods to Avoid: Avoid tough/dry/sticky foods. Swallowing Recommended Treatments: Compens. Strategy Educat. Recommendation for Speech: Inpatient Speech Therapy Comment: [employer] to continue to follow during hospitalization. Inspector Screen Printing Clinican/Clinical Fellow: No Supervisory Statement: I have reviewed and agree with the student/clinical fellow's documentation: N/A Speech Language Pathologist: Vijaya Arteaga M.A., CCC-[employer]
[2020-08-08] MEDS: Cholecalciferol (Vitamin D3) 25 MCG TABLET PO (13:26)
[2020-08-08] MEDS: Divalproex Sodium Sprinkles 125 MG CAP.DR.SPR 750 MG PO (13:26)
[2020-08-08] MEDS: Famotidine 20 MG TABLET 40 MG PO (13:27)
[2020-08-08] MEDS: Aspirin 81 MG TAB.CHEW PO (13:28)
--- NOTE | 2020-08-08 14:26 | PM.PNNEP ---
Subjective Subjective Date of Service: 08/08/20 Interval history: Seen in f/u for hypernatremia, He is completely demented and is not able to participate in any conversation, remains confused, gurgle not able to eat, hold food in mouth, and need deep sucktioning from time to time and there is concern for aspiration. Cont on IV D5W x several days now and SNa coming down Urine studies showwed Osm > 600--apprpriately concemtratred No diarrhea per RN Physical Exam Vital Signs: Vital Signs: Last Vital Signs Temp 97.6 F 08/08/20 12:00 Pulse 85 08/08/20 14:00 Resp 18 08/08/20 14:00 BP 100/72 08/08/20 13:00 Pulse Ox 95 08/08/20 14:00 Body Mass Index 25.7 Const: General: No acute distress Neck: Neck: Yes supple Resp: Auscultation: diminished lung sounds Cardio: Jugular venous distension: no JVD GI: Palpation (GI): Soft to palpation Neuro: General: moves all extremities Objective Data Labs CBC & Chem 7: 08/08/20 05:48 08/08/20 05:48 Labs: Laboratory Results - last 24 hr 08/07/20 08/07/20 08/07/20 15:14 15:14 16:50 WBC RBC Hgb Hct MCV MCH MCHC RDW Plt Count MPV Absolute Nucleated RBC Nucleated RBC % (auto) APTT O2 Saturation 93.0 ABG pH at Pt Temp 7.52 H ABG pH (Temp Correct) 7.51 H ABG pCO2 at Pt Temp 31 L ABG pCO2 (Temp Corrct 31 L ABG pO2 at Pt Temp 66 L ABG pO2 (Temp Correct 68 L ABG HCO3 25 ABG Base Excess (Actual) 3.4 VBG pH VBG pCO2 VBG pO2 VBG HCO3 VBG O2 Saturation VBG Base Excess Sodium Potassium Chloride Carbon Dioxide Anion Gap BUN Creatinine Estim Creat Clear Calc Estimated GFR Random Glucose Lactic Acid 2.6 H* Lactic Acid Fup @ 2Hr Calcium Troponin I High Sens 15.0 Urine Color Urine Appearance Urine pH Ur Specific [place] Urine Protein Urine Glucose (UA) Urine Ketones Urine Blood Urine Nitrite Ur Leukocyte Esterase Urine RBC Urine WBC Ur Squamous Epith Cells Urine Bacteria 08/07/20 08/07/20 08/07/20 17:11 18:46 18:47 WBC 9.8 RBC 5.05 Hgb 14.3 Hct 43.9 MCV 86.9 MCH 28.3 MCHC 32.6 RDW 13.2 Plt Count 120 L MPV 10.8 Absolute Nucleated RBC 0.000 Nucleated RBC % (auto) 0.0 APTT O2 Saturation ABG pH at Pt Temp ABG pH (Temp Correct) ABG pCO2 at Pt Temp ABG pCO2 (Temp Corrct ABG pO2 at Pt Temp ABG pO2 (Temp Correct ABG HCO3 ABG Base Excess (Actual) VBG pH VBG pCO2 VBG pO2 VBG HCO3 VBG O2 Saturation VBG Base Excess Sodium Potassium Chloride Carbon Dioxide Anion Gap BUN Creatinine Estim Creat Clear Calc Estimated GFR Random Glucose Lactic Acid Lactic Acid Fup @ 2Hr Calcium Troponin I High Sens Urine Color Cancelled YELLOW Urine Appearance Cancelled CLEAR Urine pH Cancelled 6.0 Ur Specific [place] Cancelled <= 1.005 Urine Protein Cancelled NEG Urine Glucose (UA) Cancelled NEG Urine Ketones Cancelled NEG Urine Blood Cancelled NEG Urine Nitrite Cancelled NEG Ur Leukocyte Esterase Cancelled NEG Urine RBC 0 Urine WBC 0-2 Ur Squamous Epith Cells 1+ Urine Bacteria TRACE 08/07/20 08/07/20 08/07/20 19:03 19:03 19:09 WBC RBC Hgb Hct MCV MCH MCHC RDW Plt Count MPV Absolute Nucleated RBC Nucleated RBC % (auto) APTT 41.0 H D O2 Saturation ABG pH at Pt Temp ABG pH (Temp Correct) ABG pCO2 at Pt Temp ABG pCO2 (Temp Corrct ABG pO2 at Pt Temp ABG pO2 (Temp Correct ABG HCO3 ABG Base Excess (Actual) VBG pH 7.44 H 7.44 H VBG pCO2 30 30 VBG pO2 31 31 VBG HCO3 21 L 21 L VBG O2 Saturation 55.0 55.0 VBG Base Excess -1.5 -1.5 Sodium Potassium Chloride Carbon Dioxide Anion Gap BUN Creatinine Estim Creat Clear Calc Estimated GFR Random Glucose Lactic Acid Lactic Acid Fup @ 2Hr Calcium Troponin I High Sens Urine Color Urine Appearance Urine pH Ur Specific [place] Urine Protein Urine Glucose (UA) Urine Ketones Urine Blood Urine Nitrite Ur Leukocyte Esterase Urine RBC Urine WBC Ur Squamous Epith Cells Urine Bacteria 08/07/20 08/08/20 08/08/20 20:45 05:48 05:48 WBC 9.3 RBC 4.44 L Hgb 12.5 L Hct 38.3 L MCV 86.3 MCH 28.2 MCHC 32.6 RDW 13.2 Plt Count 131 L MPV 11.0 Absolute Nucleated RBC 0.000 Nucleated RBC % (auto) 0.0 APTT O2 Saturation ABG pH at Pt Temp ABG pH (Temp Correct) ABG pCO2 at Pt Temp ABG pCO2 (Temp Corrct ABG pO2 at Pt Temp ABG pO2 (Temp Correct ABG HCO3 ABG Base Excess (Actual) VBG pH VBG pCO2 VBG pO2 VBG HCO3 VBG O2 Saturation VBG Base Excess Sodium 142 Potassium 3.5 Chloride 107 Carbon Dioxide 26 Anion Gap 13 BUN 13 Creatinine 0.93 Estim Creat Clear Calc 89.2 Estimated GFR > 60 Random Glucose 103 Lactic Acid Lactic Acid Fup @ 2Hr 1.2 Calcium 7.7 L D Troponin I High Sens Urine Color Urine Appearance Urine pH Ur Specific [place] Urine Protein Urine Glucose (UA) Urine Ketones Urine Blood Urine Nitrite Ur Leukocyte Esterase Urine RBC Urine WBC Ur Squamous Epith Cells Urine Bacteria Assessment & Plan Assessment and plan (1) Acute hypernatremia: Status: Acute Assessment and Plan: 1. HyperNa: resolving on IV hypotonic fluids and conc mech seems to be reasonable with Uosm > 600 but still may have some partial conc defect; Ques incr IWL from resp or diarrhea ? 2. Low BPs: w/u oper ICU REC: d/c D5W and repalce with LR and trrack UOP/SNa and if SNa incr again then will need to repelat Uosm; ? if he has ever been on [place] Time Spent With Patient Time: Total time spent is greater than 50% in coordination of care (as documented) at patient's floor/unit and/or counseling patient: Procedures Date of Service Date of Service: 08/08/20
--- NOTE | 2020-08-08 16:44 | MHC.SLORD ---
Speech Language Pathology Order Status: This afternoon TRIP MOTOR OPERATOR provided visual communication boards for patient with: -letters to spell -yes/no icons -icons to communicate basic needs/requests: pain, hungry/thirsty, bathroom, medicine, turn tv on/off, doctor, call family, raise head of bed -body parts for pain. Communication board is in patient's room.
[2020-08-08] MEDS: Potassium Chloride Packet 20 MEQ PACKET 40 MEQ PO (19:03)
[2020-08-08] MEDS: Lactated Ringers 1,000 ML 80 ML IVCONT (19:04)
--- NOTE | 2020-08-08 19:28 | PC.NURSE ---
Assumed care at 07:00. Patient alert, confused, limited communication ability limited assessments. Patient was initially only able to nod head and shake head to indicate yes and no, and he also was able to move all extremities to command, dog bather firmly and equally bilaterally, and pupils are sluggish at 3 mm, PERRL. Patient was NPO related to concern for recent possible aspiration, and morning meds were held initially pending speech and swallow eval, which was done and MD ordered the recommended ground mechanical texture with nectar thick liquids, patient tolerated this and ate 50% of lunch. Meticulous oral care before and after meals was done with good effect. Patient does have trouble tolerating care, appears very anxious with nursing care, senior functional analyst mattress, shouts obscenities, occasionally swings at staff with closed fist, but was easily redirected without any PRNs. Patient does have scheduled depakote, which he tolerated swallowing, and over the course of the day, patient seemed to get more verbally able to express his needs. Patient was able to use short sentences and clearer words after 16:00, whereas this morning, be was garbled and very unclear verbally; communication boards obtained and some education given to patient about them, further education needed. Patient was in a sinus rhythm all day, no ectopy. BP slightly soft at times, resolved with repositioning. Patient had been incontinent of urine, [place] cath applied and education given about it, and patient did not try to pull it off at all. Telesitter in place as precaution. Patient's two sisters updated. PO potassium given per MD for K of 3.5
[2020-08-08] MEDS: OLANZapine 5 MG TABLET PO (22:07)
[2020-08-08] MEDS: Escitalopram Oxalate 20 MG TABLET PO (22:08)
[2020-08-08] MEDS: Divalproex Sodium Sprinkles 125 MG CAP.DR.SPR 1000 MG PO (22:08)
[2020-08-08] MEDS: traZODone HCL 100 MG TABLET PO (22:08)
[2020-08-08] MEDS: Atorvastatin Calcium 10 MG TABLET PO (22:08)
[2020-08-09] VITALS (25 sets, daily range): BP systolic 75–129; BP diastolic 41–79; PULSE 52–76; RESP 10–21; TEMP 36.3–36.8; O2SAT 93–99; BMI 25.7
[2020-08-09] MEDS: 0.9 % Sodium Chloride Flush 3 ML SYRINGE IVFLUSH ×2 (03:15→23:13)
[2020-08-09] MEDS: Ampicillin Sodium/Sulbactam Na 3 GM in 0.9 % Sodium Chloride 100 ML IV ×3 (03:15→13:16)
[2020-08-09] MEDS: Lactated Ringers 1,000 ML 80 ML IVCONT (06:05)
[2020-08-09] MEDS: Lactated Ringers 1,000 ML 999 ML IV ×2 (06:05→08:10)
[2020-08-09 06:19] LABS: MANUAL DIFF FLAG NO
[2020-08-09 06:25] LABS: Basophils Percent Auto 0.1 % (0-2); Eosinophils Absolute Auto 0.1 X10*3/uL (0.0-0.4); Eosinophils Percent Auto 0.9 % (0-4); Hematocrit 31.8 % (42-52); Hemoglobin 10.6 g/dl (14.0-18.0); Imm Gran Abs Auto 0.05 X10*3/uL (0.00-0.03); Imm Gran Pct Auto 0.6 % (0.0-0.4); Lymphocytes Percent Auto 12.9 % (20-40); Mean Corpuscular HGB Conc 33.3 g/dl (31.0-36.0); Mean Corpuscular Hemoglobin 28.6 pg (27.0-33.0); Mean Corpuscular Volume 85.7 fL (80-98); Mean Platelet Volume 10.1 fL (9.4-12.4); Monocytes Absolute Auto 0.8 X10*3/uL (0.1-1.2); Monocytes Percent Auto 10.3 % (2-11); Neutrophils Absolute Auto 6.1 X10*3/uL (2.0-8.3); Neutrophils Percent Auto 75.2 % (45-73); Platelet Count 142 X10*3/uL (160-400); Red Blood Count 3.71 X10*6/uL (4.60-5.80); Red Cell Distribution Width 13.2 % (11.0-16.0); White Blood Count 8.1 X10*3/uL (4.8-10.8)
[2020-08-09 06:42] LABS: Anion Gap 10 (12-20); Blood Urea Nitrogen 10 mg/dL (9-16); Calcium 7.6 mg/dL (8.4-10.2); Carbon Dioxide 26 mmol/L (22-29); Chloride 111 mmol/L (96-108); Creatinine Clr Calc Pharmacy 110.6; Estimated Glomerular Filt Rate > 60; Glucose Fasting 95 mg/dL (60-99); Potassium 3.1 mmol/L (3.3-5.1); Sodium 144 mmol/L (135-145)
[2020-08-09 08:02] LABS: Lactic Acid 1.3 mmol/L (0.5-2.0)
--- NOTE | 2020-08-09 08:50 | MHC.CM.PN ---
pt remains in the icu at this time. pt is from [facility] where he is a resident. dc plan is for him to return there when medicallly stabe. refs have been made. cm to cont. to follow.
[2020-08-09] MEDS: Enoxaparin Sodium 40 MG/0.4 ML SYRINGE SUBCUT (10:20)
[2020-08-09 10:35] LABS: Glucose, Whole Blood 84 mg/dL (60-115)
[2020-08-09 12:04] LABS: Magnesium 2.2 mg/dL (1.6-2.6); Phosphorus 2.4 mg/dL (2.7-4.5)
--- NOTE | 2020-08-09 12:06 | P.PNCC_ITS ---
Subjective Subjective Date of Service: 08/09/20 Interval History: Mr Sharp was transferred down to the ICU on August 07 because of hypoxemia and hypotension. The patient is a 64-year-old male with a history of dementia and hypertension who was sent to the emergency room on 08/04/2020 from [facility] (a [facility]) due to worsening agitation. In the ED his sodium was 158. BUN/creat were 28/1.2. He was admitted to Medicine for hypernatremia and dehydration. On the [place]roy, the patient was ?completely demented and is not able to participate in any conversation, agitated and comabative at times, refuses to eat.? His Depakote and olanzapine were continued. He was gurgling and needed prn deep suctioning. On August 07 afternoon, the patient had an episode of tachycardia and hypoxemia, with increasing respiratory secretions requiring constant secretion with copious mucopururent secretions with wet cough, with new AFIB with RVR, and new temperature to 102.2?. Then BP dropped to 82/69. WBC was down, but lactate was 2.6. CXR showed (very) subtle small opacities in right mid lung and left base, with obscured left hemidiaphr. Was felt to have aspirated. Was transferred to ICU and started on Unasyn after blood cxs were drawn. Was also given fluids and started on Cardizem and full dose Lovenox for the afib. Healthcare proxy asked that everything done to save him , including a feeding tube if nec. The patient converted back to SR later that evening and has been in sinus rhythm since then. BP all day yesterday was 90?s-100?s (baseline 110-160 systolic). The patient was breathing easy with Sat?s mid-high 90?s on room air since arrival to ICU, which is his baseline. He?s been afebrile since admission to the ICU. Yesterday he had a wet cough and was clearly handling his secretions imperfectly, although he was able to swallow pills ground up in nectar-thick liquids, and did pass a swallow eval for mechanically ground solids and nectar thick liquids. In the early hours this morning, he had recurrent hypotension down to the 80s and even 70s. He was given a bolus of crystalloid, and his blood pressure did come up into the 90s. He remains on room air, with Sat?s up to the high 90?s. Labs show a drop in his Hb to 10.6 this morning, from 12.5 yesterday. He hasn?t had any stool yet to check for blood (nor has he had any emesis). According to the patient?s nurse, this morning he was unresponsive with no eye opening, altho he was breathing adequately and protecting his airway, with Sat maintained in mid-high 90?s range on room air. Later, on my exam, he became more ?awake?, and he even answered me ?OK? when I asked him how he was, albeit with a very delayed response. He is fully awake and talking, but making no sense. He continues to look thoroughly nontoxic. He does not have the frequent wet cough that he had yesterday. No JVD at 45?. Breath sounds are very distant but clear. Exp phase is normal. Regular rate and rhythm, with normal-sounding S1 and S2, with no murmur or gallops. The abdomen is benign. He has no peripheral edema. LABORATORY DATA: As below. Notably, white count is still normal, hemoglobin is down to 10.6 from 12.5 yesterday, sodium is 144, potassium is 3.1, BUN and creatinine are down to 10/0.7, lactic acid is 1.3, phos is 2.4. IMPRESSION: 1. Severe underlying dementia. Likely getting worse, possibly reaching a critical stage that is now starting to impact his swallowing integrity. At this moment, it looks like he is medicated appropriately, i.e., it does not seem that over medication is the reason for his swallowing difficulty. 2. The episode on August 07 was undoubtedly an episode of aspiration, but he had no sequellae from it (did not develop sepsis or pneumonia). No indication for antibiotics at this time. I?ll d/c the Unasyn. correction, he?ll probably need a PEG. No urgency for it to be done right now. 3. Blood pressure now is still a little lower than usual, but BUN and creatinine are baseline. I?ve d/c?d IV fluids. Clinically, he is not septic. I?ll send urine lytes. 4. Brief episode of atrial fibrillation on August 07, associated w the aspiration event. No need for further treatment, and no need for anticoagulation, other than regular Lovenox dosing for pharmacologic DVT prophylaxis. 5. Behavioral control. We?ll continue with the valproate and the 5mg Zyprexa qhs only (not bid). I?ve asked psych to see him again. 6. Hypernatremia. Resolved. Time: 50 min. (92809) Critical Care Time (minutes): 0 Physical Exam Vital Signs: Vital Signs: Last Vital Signs Temp 97.8 F 08/09/20 08:00 Pulse 65 08/09/20 11:00 Resp 16 08/09/20 11:00 BP 102/62 08/09/20 11:00 Pulse Ox 96 08/09/20 11:00 Body Mass Index 25.7 Objective Data Labs CBC & Chem 7: 08/09/20 05:57 08/09/20 05:57 Labs: Laboratory Results - last 24 hr 08/09/20 08/09/20 08/09/20 05:57 05:57 07:36 WBC 8.1 RBC 3.71 L Hgb 10.6 L Hct 31.8 L MCV 85.7 MCH 28.6 MCHC 33.3 RDW 13.2 Plt Count 142 L MPV 10.1 Immature Gran % (Auto) 0.6 H Neut % (Auto) 75.2 H Lymph % (Auto) 12.9 L [place] % (Auto) 10.3 Eos % (Auto) 0.9 Baso % (Auto) 0.1 Lymph # (Auto) 1.0 L [place] # (Auto) 0.8 Eos # (Auto) 0.1 Baso # (Auto) 0.0 Abs Immat Gran (auto) 0.05 H Absolute Neuts (auto) 6.1 Absolute Nucleated RBC 0.000 Nucleated RBC % (auto) 0.0 Sodium 144 Potassium 3.1 L Chloride 111 H Carbon Dioxide 26 Anion Gap 10 L BUN 10 Creatinine 0.75 Estim Creat Clear Calc 110.6 Estimated GFR > 60 POC Glucose Fasting Glucose 95 Lactic Acid 1.3 Calcium 7.6 L Phosphorus 2.4 L Magnesium 2.2 Blood Type Antibody Screen 08/09/20 08/09/20 07:36 10:27 WBC RBC Hgb Hct MCV MCH MCHC RDW Plt Count MPV Immature Gran % (Auto) Neut % (Auto) Lymph % (Auto) [place] % (Auto) Eos % (Auto) Baso % (Auto) Lymph # (Auto) [place] # (Auto) Eos # (Auto) Baso # (Auto) Abs Immat Gran (auto) Absolute Neuts (auto) Absolute Nucleated RBC Nucleated RBC % (auto) Sodium Potassium Chloride Carbon Dioxide Anion Gap BUN Creatinine Estim Creat Clear Calc Estimated GFR POC Glucose 84 Fasting Glucose Lactic Acid Calcium Phosphorus Magnesium Blood Type A Positive Antibody Screen NEGATIVE Microbiology Microbiology Results: Microbiology 08/07/20 19:03 Blood - Venous Blood Culture - Preliminary No growth after 24 hours. 08/07/20 19:03 Blood - Venous Blood Culture - Preliminary No growth after 24 hours.
[2020-08-09] MEDS: Famotidine 20 MG TABLET 40 MG PO (13:00)
[2020-08-09] MEDS: Aspirin 81 MG TAB.CHEW PO (13:01)
[2020-08-09] MEDS: Cholecalciferol (Vitamin D3) 25 MCG TABLET PO (13:01)
[2020-08-09] MEDS: Divalproex Sodium Sprinkles 125 MG CAP.DR.SPR 750 MG PO (13:01)
[2020-08-09] MEDS: Potassium Chloride ER 20 MEQ TAB.ER.PRT 40 MEQ PO (13:14)
--- NOTE | 2020-08-09 14:51 | MHC.SLORD ---
Speech Language Pathology Order Status: PATIENT RELATIONS LIAISON attempted to see pt this afternoon for dysphagia therapy and to assist with communication board. Pt was asleep upon arrival and difficult to rouse. Pt was not appropriate to participate in speech therapy this afternoon. PATIENT RELATIONS LIAISON spoke to aide who fed him lunch. She reported that pt is tolerating current diet without difficulty. Continue to recommend GROUND/MECH (NDD2) solids and NECTAR THICK liquids with PILLS CRUSHED IN PUREE. Total assistance and strict aspiration precautions apply. PATIENT RELATIONS LIAISON will continue to follow.
--- NOTE | 2020-08-09 18:18 | P.EN_ITS ---
Event Note Date of Service: 08/09/20 Event Note: PT SEEN CHART REVIEWED CASE REVIEWED WITH NURSING AND DR VU PT WITH REPORTED HX DEMENTIA ? SCHIZOAFFECTIVE DX TX WITH OLANZAPINE DEPAKOTE . WAS RECENTLY TRANSFERRED TO SNF FROM [facility] HAD GONE FROM AMBULATORY TO NON AMBULATORY SEEN IN ER EVENTUALLY HYPOTENSIVE FEBRILE HAD ? ASPIRATION EVENT. ON EXAM PT OBTUNDED TREMULOUS SHIVERING SEVERE RIGIDITY ? NMS DISCUSSED WITH DR VU WOULD HOLD ANTIPSYCHOTICS UNCLEAR WHY OBTUNDED SEVERE RIGIDITY NMS ? SEPSIS ? AMMONIA HAD BEEN WNL CK CPK ? NEURO EVAL
[2020-08-09 19:10] LABS: Potassium Urine Random 14.3 mmol/L
--- NOTE | 2020-08-09 20:19 | PC.NURSE ---
Assumed care at 07:00. Patient pupils were pinpointed at 1 mm; Patient was not responding to commands, which was a change from yesterday; patient was able to move all extremities. MD and HOUSEHOLD ASSISTANT notified, ICU MD re-consulted and patient was made ICU level of care again. Patient was drowsy for the rest of the day in episodes, but soon was able to speak and pupils not pinpointed in early afternoon; pupils fixed again in late afternoon. Patient otherwise with periods of wafefulness in the afternoon and was able to eat about 70% of lunch, 1:1 feed. Is not able to specify own needs more than saying or nodding yes or no. Patient's brother, Praful Sharp , and his family friend Rajan Smith, were in to visit from [place] and were insistent that Praful should be the HCP; MD and skilled nursing facility counselor and case management were notified, and calls were placed to the legal guardian on record: Rody, and she has indicated subsequently that it is acceptable and encouraged to her to have family visit patient, but only to update her with medical information. Staff notified of this.
[2020-08-09] MEDS: LORazepam 2 MG/ML VIAL 1 MG IV (22:13)
[2020-08-10] VITALS (19 sets, daily range): BP systolic 110–190; BP diastolic 62–95; PULSE 63–105; RESP 13–28; TEMP 36.6–38.3; O2SAT 93–99
[2020-08-10 05:49] LABS: VBG Base Excess 3.1 mmol/L; VBG HCO3 26 mmol/L (22-26); VBG pCO2 34 mmHg; VBG pH 7.48 (7.32-7.43); VBG pO2 33 mmHg
[2020-08-10 05:55] LABS: INTERNATIONAL NORM RATIO 1.4 (0.9-1.1); Prothrombin Time 16.6 SEC (10.8-13.0)
[2020-08-10 05:59] LABS: Hematocrit 38.3 % (42-52); Hemoglobin 12.6 g/dl (14.0-18.0); Mean Corpuscular HGB Conc 32.9 g/dl (31.0-36.0); Mean Corpuscular Hemoglobin 28.2 pg (27.0-33.0); Mean Corpuscular Volume 85.7 fL (80-98); Mean Platelet Volume 10.1 fL (9.4-12.4); Platelet Count 176 X10*3/uL (160-400); Red Blood Count 4.47 X10*6/uL (4.60-5.80); Red Cell Distribution Width 13.3 % (11.0-16.0); White Blood Count 7.9 X10*3/uL (4.8-10.8)
[2020-08-10 06:12] LABS: Lactic Acid 1.3 mmol/L (0.5-2.0)
[2020-08-10 06:21] LABS: Valproate 64.5 mcg/mL (50.0-100.0)
[2020-08-10 06:26] LABS: Anion Gap 11 (12-20); Blood Urea Nitrogen 9 mg/dL (9-16); Carbon Dioxide 27 mmol/L (22-29); Chloride 111 mmol/L (96-108); Creatinine Clr Calc Pharmacy 112.1; Estimated Glomerular Filt Rate > 60; Glucose Random 120 mg/dL (60-115); Potassium 3.3 mmol/L (3.3-5.1); Sodium 146 mmol/L (135-145)
[2020-08-10 06:32] LABS: Albumin Level 2.9 g/dL (3.5-5.0); Calcium 8.3 mg/dL (8.4-10.2)
[2020-08-10 07:21] LABS: Venous Blood Gas Refer to POC result
--- NOTE | 2020-08-10 07:25 | PC.NURSE ---
Assumed care of pt at 1900 at which time he was calm but confused and would not follow commands.? His speech was mumbled.? He would get rigid with nsg interventions and at times would have tremors of extremities.? Pt became angry and yelling out.? Attempted to reassure him and to re-orient him.? Alberto Gandhi at bedside and ativan 1 mg iv given with good effect aside from mild restlessness but pt no longer angry.? He has pulled off the [place] catheter x3.? telesitter in room.??pt had and episode of vomiting?mod amt of yellow vomittus.? Alberto Gandhi ordered phenergan which was given and no further vomiting?noted.? Pt has not taken anything po. Urine output good.Monitor shows NSR, 70's, no ectopy.? No resp distress noted.? O2 [id number]%?on room air.
--- NOTE | 2020-08-10 07:42 | P.EN_ITS ---
Event Note Date of Service: 08/10/20 Event Note: Dr. Means saw Mr. Sharp last night and was mainly impressed by the patient's rigidity. His main concern was the possibility of neuroleptic malignant syndrome. So we stopped his Zyprexa. I checked a CPK which came back at 414 (normal range up to 174). None of his other labs (e.g. potasssium or pCO2) are consistent with a hypermetabolic syndrome, nor has the patient been febrile (other than his aspiration event), diaphoretic, tachypneic, or tachycardic. We gave the patient Ativan 1mg and it made no difference in his rigidity. As far as how long the patient has been taking Zyprexa for, I don't know the answer to that. Overall, other than his rigidity, there is no evidence that the patient has NMS. I would suggest continued daily f/u by, and management of the patient's behavior in consultation with psychiatry. The patient is stable for transfer to [facility].
[2020-08-10] MEDS: 0.9 % Sodium Chloride Flush 3 ML SYRINGE IVFLUSH ×2 (07:52→15:54)
[2020-08-10] MEDS: Enoxaparin Sodium 40 MG/0.4 ML SYRINGE SUBCUT (08:06)
[2020-08-10] MEDS: Dextrose 5 % 1,000 ML 80 ML IVCONT (08:18)
[2020-08-10] MEDS: Potassium Chloride Packet 20 MEQ PACKET 40 MEQ PO (08:20)
--- NOTE | 2020-08-10 11:19 | MHC.CM.PN ---
Patient remains in ICU but will be transferred to [facility]. Patient was at [facility] for 2 weeks prior to coming to the ER. Patient was admitted due to hypernatremia. Patient has been mostly cooperative with care. However, did refuse some medication this morning. Kerry [facility] social media job titles made aware via telephone at [phone] ext [phone]. Continue to monitor for d/c needs.
--- NOTE | 2020-08-10 11:47 | MHC.SLORD ---
Speech Language Pathology Order Status: SCIENTIFIC PUBLICATIONS EDITOR attempted to see pt this morning for dysphagia therapy and to assist with communication board. Pt was repositioned with help of RN. Per RN, pt had some difficulty swallowing pureed solids this morning. She reported that he had difficulty with bolus manipulation and AP transport. Eventually, he was able to swallow the bolus. Pt refused further PO medications this morning. When seen by SCIENTIFIC PUBLICATIONS EDITOR, pt refused to open mouth for oral care or PO trials. He would open his eyes though, did not participate with communication board. Pt swatted SCIENTIFIC PUBLICATIONS EDITOR's hand out of the way. SCIENTIFIC PUBLICATIONS EDITOR will re-attempt PO trials this afternoon if available or tomorrow morning.
[2020-08-10] MEDS: hydrALAZINE HCl 20 MG/ML VIAL 5 MG IVPUSH (17:59)
[2020-08-10] MEDS: Ampicillin Sodium/Sulbactam Na 3 GM in 0.9 % Sodium Chloride 100 ML IV (17:59)
[2020-08-10] MEDS: Escitalopram Oxalate 20 MG TABLET PO (21:15)
[2020-08-10] MEDS: Divalproex Sodium Sprinkles 125 MG CAP.DR.SPR 1000 MG PO (21:27)
[2020-08-10] MEDS: Atorvastatin Calcium 10 MG TABLET PO (21:31)
[2020-08-11] VITALS (8 sets, daily range): BP systolic 134–180; BP diastolic 67–110; PULSE 66–88; RESP 16–20; TEMP 36–36.8; O2SAT 93–98
[2020-08-11] MEDS: Ampicillin Sodium/Sulbactam Na 3 GM in 0.9 % Sodium Chloride 100 ML IV ×5 (00:24→21:34)
[2020-08-11] MEDS: 0.9 % Sodium Chloride Flush 3 ML SYRINGE IVFLUSH ×3 (00:25→21:37)
[2020-08-11 06:53] LABS: Hematocrit 39.6 % (42-52); Hemoglobin 12.9 g/dl (14.0-18.0); Mean Corpuscular HGB Conc 32.6 g/dl (31.0-36.0); Mean Corpuscular Hemoglobin 27.9 pg (27.0-33.0); Mean Corpuscular Volume 85.5 fL (80-98); Mean Platelet Volume 10.2 fL (9.4-12.4); Platelet Count 206 X10*3/uL (160-400); Red Blood Count 4.63 X10*6/uL (4.60-5.80); Red Cell Distribution Width 13.5 % (11.0-16.0); White Blood Count 12.7 X10*3/uL (4.8-10.8)
[2020-08-11 07:16] LABS: Anion Gap 13 (12-20); Blood Urea Nitrogen 8 mg/dL (9-16); Calcium 8.5 mg/dL (8.4-10.2); Carbon Dioxide 27 mmol/L (22-29); Chloride 110 mmol/L (96-108); Creatinine Clr Calc Pharmacy 112.1; Estimated Glomerular Filt Rate > 60; Glucose Fasting 84 mg/dL (60-99); Potassium 3.5 mmol/L (3.3-5.1); Sodium 146 mmol/L (135-145)
[2020-08-11] MEDS: Enoxaparin Sodium 40 MG/0.4 ML SYRINGE SUBCUT (08:22)
--- NOTE | 2020-08-11 11:47 | P.PNIM_ITS ---
Subjective Subjective Date of Service: 08/11/20 Interval History: denies symptoms, minimally verbal, Cardiovascular Cardiovascular: Reports no additional cardiovascular complaints Gastrointestinal Gastrointestinal: Reports no additional gastrointestinal complaints Physical Exam Vital Signs: Vital Signs: Last Vital Signs Temp 97.9 F 08/11/20 11:31 Pulse 66 08/11/20 11:31 Resp 20 08/11/20 11:31 BP 148/87 H 08/11/20 11:31 Pulse Ox 96 08/11/20 11:31 Body Mass Index 25.7 General: minimally verbal Resp: CTA bilateral CVS: S1,S2,RRR GI: soft, non tender, non distended Neuro: rigid Psych: impaired insight Objective Data Current Medications Generic Name Dose Route Start Last Admin Trade Name Freq PRN Reason Stop Dose Admin Amlodipine Besylate 2.5 mg 08/05/20 09:00 08/11/20 08:40 Amlodipine Besylate 2.5 Mg Tablet PO Not Given DAILY@0900 [facility] Protocol Aspirin 81 mg 08/05/20 09:00 08/11/20 08:39 Aspirin 81 Mg Tab.Chew PO Not Given DAILY@0900 [facility] Atorvastatin Calcium 10 mg 08/05/20 21:00 08/10/20 21:31 Atorvastatin Calcium 10 Mg Tablet PO 10 mg BEDTIME [facility] Administration Divalproex Sodium 750 mg 08/05/20 09:00 08/11/20 08:39 Divalproex Sodium Sprinkles 125 Mg Cap PO Not Given DAILY [facility] Divalproex Sodium 1,000 mg 08/05/20 21:00 08/10/20 21:27 Divalproex Sodium Sprinkles 125 Mg Cap.Spr PO 1,000 mg BEDTIME [facility] Administration Docusate Sodium 100 mg 08/05/20 00:34 Docusate Sodium 100 Mg Capsule PO DAILY PRN Constipation Enoxaparin Sodium 40 mg 08/09/20 09:00 08/11/20 08:22 Enoxaparin Sodium 40 Mg/0.4 Ml Syringe SUBCUT 40 mg Q24H [facility] Administration Escitalopram Oxalate 20 mg 08/05/20 21:00 08/10/20 21:15 Escitalopram Oxalate 20 Mg Tablet PO 20 mg BEDTIME [facility] Administration Famotidine 40 mg 08/05/20 09:00 08/11/20 08:40 Famotidine 20 Mg Tablet PO Not Given DAILY@0900 [facility] Hydralazine HCl 5 mg 08/10/20 17:23 08/10/20 17:59 Hydralazine Hcl 20 Mg/Ml Vial IVPUSH 5 mg Q6H PRN Administration bp>160 Protocol Ampicillin Sodium/Sulbactam 100 mls @ 200 mls/hr 08/10/20 17:30 08/11/20 11:20 Sodium 3 gm/ Sodium Chloride IV 200 mls/hr Q6H [facility] Administration Sodium Chloride 3 ml 08/05/20 00:34 08/11/20 08:23 0.9 % Sodium Chloride Flush 3 Ml Syringe IVFLUSH 3 ml QSHIFT [facility] Administration Vitamin D 25 mcg 08/05/20 09:00 08/11/20 08:40 Cholecalciferol (Vitamin D3) 25 Mcg Tablet PO Not Given DAILY [facility] Labs CBC & Chem 7: 08/11/20 05:36 08/11/20 05:36 Microbiology Microbiology Results: Microbiology 08/07/20 19:03 Blood - Venous Blood Culture - Preliminary No growth after 48 hours. 08/07/20 19:03 Blood - Venous Blood Culture - Preliminary No growth after 48 hours. Assessment and Plan (1) Encephalopathy: Status: Acute Assessment and Plan: 64M presented with ams, became febrile, hypoxic, and hypotensive, was sent to ICU, in ICU zyprexa was held, given empiric antibiotics, and hypoxia, hypotension resolved. now on floor patient with perissitent AMS and fevers fevers not clear if infectious possible NMS but less likely with low CPK hold antipsychotics antipyretics monitor acute hypoxic respiratory failure due to aspiration pneumonia unasyn hypoxia resolved
--- NOTE | 2020-08-11 12:48 | MHC.SLORD ---
Speech Language Pathology Order Status: CANOE INSPECTOR FINAL attempted to see patient this morning for PO trials, but patient refused, swatting and not opening mouth when instructed. Will continue to follow.
--- NOTE | 2020-08-11 15:08 | PM.NEUROCN ---
History of Present Illness Data of Consult Service Date: 08/11/20 Primary Care Provider: Unknown Physician 64 years old man with underlying history of dementia resident of a facility brought to hospital with change in mental status. He was noted to have multiple lab abnormalities and fever. He was unable to provide any meaningful history. There was no evidence of any seizure. Review of Systems Review of Systems: Unable to obtain answers to question PMFSH Past Medical History Medical History Advanced dementia HTN (hypertension) Social History Social History Household Members: None Housing: Long-Term Do you presently have visiting nurse or other home services: No Unable to assess alcohol history related to: Unable to respond Patient Tobacco Use Status: Tobacco use Unknown Use of substances other than those prescribed or required for medical reasons: Unknown Currently Displaying Signs/Symptoms of Drug Intoxication Withdrawal: No Have you been hit, kicked, punched, or otherwise hurt by someone within the past year? If so, by whom?: No Do you feel safe in your current relationship?: No Current Relationship Is there a partner from a previous relationship who is making you feel unsafe now?: No Are you made to feel afraid or neglected: No Advance Directives: Yes Advance Directives Information Provided: No Advance Directives on File: No Advance Directives Date on File: 08/05/20 Do you have thoughts of harming others: None Do you have a plan to hurt others: No Plan Recently lost weight without trying: No Nutrition Risks: No Nutritional Risk Poor oral hygiene: No Meds Allergies Allergy/AdvReac Type Severity Reaction Status Date / Time atenolol Allergy Unknown Verified 08/04/20 13:37 duloxetine [From Cymbalta] Allergy Unknown Verified 08/04/20 13:37 ibuprofen Allergy Unknown Verified 08/04/20 13:37 levofloxacin [From Levaquin] Allergy Unknown Verified 08/04/20 13:37 Active Medications: Current Medications Generic Name Dose Route Start Last Admin Trade Name Freq PRN Reason Stop Dose Admin Amlodipine Besylate 2.5 mg 08/05/20 09:00 08/11/20 08:40 Amlodipine Besylate 2.5 Mg Tablet PO Not Given DAILY@0900 [facility] Protocol Aspirin 81 mg 08/05/20 09:00 08/11/20 08:39 Aspirin 81 Mg Tab.Chew PO Not Given DAILY@0900 [facility] Atorvastatin Calcium 10 mg 08/05/20 21:00 08/10/20 21:31 Atorvastatin Calcium 10 Mg Tablet PO 10 mg BEDTIME [facility] Administration Divalproex Sodium 750 mg 08/05/20 09:00 08/11/20 08:39 Divalproex Sodium Sprinkles 125 Mg Cap. PO Not Given DAILY [facility] Divalproex Sodium 1,000 mg 08/05/20 21:00 08/10/20 21:27 Divalproex Sodium Sprinkles 125 Mg Cap. PO 1,000 mg BEDTIME [facility] Administration Docusate Sodium 100 mg 08/05/20 00:34 Docusate Sodium 100 Mg Capsule PO DAILY PRN Constipation Enoxaparin Sodium 40 mg 08/09/20 09:00 08/11/20 08:22 Enoxaparin Sodium 40 Mg/0.4 Ml Syringe SUBCUT 40 mg Q24H [facility] Administration Escitalopram Oxalate 20 mg 08/05/20 21:00 08/10/20 21:15 Escitalopram Oxalate 20 Mg Tablet PO 20 mg BEDTIME [facility] Administration Famotidine 40 mg 08/05/20 09:00 08/11/20 08:40 Famotidine 20 Mg Tablet PO Not Given DAILY@0900 [facility] Hydralazine HCl 5 mg 08/10/20 17:23 08/10/20 17:59 Hydralazine Hcl 20 Mg/Ml Vial IVPUSH 5 mg Q6H PRN Administration bp>160 Protocol Ampicillin Sodium/Sulbactam 100 mls @ 200 mls/hr 08/10/20 17:30 08/11/20 11:58 Sodium 3 gm/ Sodium Chloride IV Infused Q6H [facility] Infusion Sodium Chloride 3 ml 08/05/20 00:34 08/11/20 08:23 0.9 % Sodium Chloride Flush 3 Ml Syringe IVFLUSH 3 ml QSHIFT [facility] Administration Vitamin D 25 mcg 08/05/20 09:00 08/11/20 08:40 Cholecalciferol (Vitamin D3) 25 Mcg Tablet PO Not Given DAILY [facility] Home Medications Medication Instructions Recorded Confirmed Last Taken Type amlodipine 2.5 mg PO DAILY@89908/04/20 08/04/20 08/04/20 History aspirin 81 mg PO DAILY@0900 08/04/20 08/04/20 08/04/20 History cholecalciferol (vitamin D3) 25 mcg PO DAILY 08/04/20 08/04/20 08/04/20 History divalproex 1,000 mg PO BEDTIME 08/04/20 08/04/20 08/04/20 History divalproex [Depakote Sprinkles] 750 mg PO DAILY 08/04/20 08/04/20 08/04/20 History escitalopram oxalate 20 mg PO BEDTIME 08/04/20 08/04/20 08/03/20 History famotidine 40 mg PO DAILY@0900 08/04/20 08/04/20 08/04/20 History lisinopril 40 mg PO DAILY 08/04/20 08/04/20 08/04/20 History olanzapine 5 mg PO DAILY 08/04/20 08/04/20 08/04/20 History olanzapine 10 mg PO BEDTIME 08/04/20 08/04/20 08/03/20 History simvastatin 20 mg PO BEDTIME 08/04/20 08/04/20 08/03/20 History trazodone 100 mg PO BEDTIME 08/04/20 08/04/20 08/03/20 History Physical Exam Vital Signs: Vital Signs: Last Vital Signs Temp 97.9 F 08/11/20 11:31 Pulse 66 08/11/20 11:31 Resp 20 08/11/20 11:31 BP 148/87 H 08/11/20 11:31 Pulse Ox 96 08/11/20 11:31 Body Mass Index 25.7 He was in restraint quite agitated mumbling not following any commands. It was difficult to say if his speech made any sense. There was no obvious nystagmus gaze deviation or abnormal posturing. He did not seem to be seizing. He did not seem to be in pain. Deep tendon reflexes were trace with equivocal plantars. Results Labs CBC & Chem 7: 08/11/20 05:36 08/11/20 05:36 Labs: Short CBC 08/11/20 Range/Units 05:36 WBC 12.7 H (4.8-10.8) X10*3/uL Hgb 12.9 L (14.0-18.0) g/dl Hct 39.6 L (42-52) % Plt Count 206 (160-400) X10*3/uL BMP 08/11/20 05:36 Sodium 146 H Potassium 3.5 Chloride 110 H Carbon Dioxide 27 BUN 8 L Creatinine 0.74 Calcium 8.5 Cardiac Enzymes 08/11/20 Range/Units 05:36 Total Creatine Kinase 176 H D (38-174) U/L His head CT reveal moderate to severe diffuse cerebral and cerebellar atrophy. Microbiology Microbiology Results: Microbiology 08/07/20 19:03 Blood - Venous Blood Culture - Preliminary No growth after 48 hours. 08/07/20 19:03 Blood - Venous Blood Culture - Preliminary No growth after 48 hours. Assessment and Plan (1) Encephalopathy: Status: Acute 64 years old man with multifactorial encephalopathy with significant brain degeneration who probably had combination of factors affecting his brain including metabolic abnormalities and infection. Because of his underlying compromised brain, my recommendation would be to take conservative approach and discuss his case with the his family members or guardian. More treatable condition should be looked after such as infection or seizure disorder. An EEG is recommended to rule out nonconvulsive status,. If no source of infection is found, lumbar puncture can also be considered to rule out encephalitis. Procedures Date of Service Date of Service: 08/11/20
--- NOTE | 2020-08-11 17:17 | P.EN_ITS ---
Event Note Date of Service: 08/12/20 Event Note: Patient seen at bedside this morning. Able to state his first and last name when this journalists and other writers asked. Visit was observational, as patient was non- communicative other than to state his name. Fully demented, unable to assess mental status further. Restless legs this morning, more than yesterday, but not as severe as several days ago. Overall, since d/c of olanzapine, patient appears improved. Neurology consult note reviewed. I spoke with his nurse, who stated that he did not take medications this morning. He has been yelling out curse words when she has attempted to provide care. Otherwise, nonverbal when she attempted to assess him. A review of MAR shows that patient has not consistently received depakote while here, with last dose on 08/10/20. I spoke with my attending, Dr. Domenico Turner. Pharmacy does have IV valproic acid, but will hold off on this recommendation for now. RECOMMENDATIONS: Please obtain a depakote level. 1mg lorazepam, IV, BID prn, for increased restlessness / agitation / anxiety. I have shared this with Dr. Bladimir Oneil, via secure messaging. Order placed for lorazepam 1mg IV prn, twice daily. Thank you.
--- NOTE | 2020-08-11 17:18 | PM.EVENT ---
Event Note Date of Service: 08/11/20 Event Note: Met with patient at bedside this afternoon at 2:50pm. He was lying calmly, with eyes closed. He did not speak to me, after repeated attempts. Continues with AMS, although no staring, posturing, sterotypy noted. No autonomic instability currently, as per chart. He does continue to have some rigidity, but it is difficult to determine as to what the cause of this is, as we do not know patient's full history or his baseline. I did meet with RN's caring for him. They report that this morning he told them his full name when asked. They said that he has periodically yelled out, screamed, and tried to clap his hands several times during the day. Overall, this is much improved from Dr. Means's visit several days ago. The nurses did also report that patient has required a 2 person assist, and that he grabs the side rail when they are turning / positioning him. They did report that he has struck out at people at times, but not currently. Discussed case with Dr. Means. No new recommendations at this time. Will follow-up with patient tomorrow morning. I have shared this with Dr. Bladimir Oneil, via secure messaging system. thank you
[2020-08-12 03:06] VITALS: BP 139/90; PULSE 75; RESP 18; TEMP 36.3; O2SAT 99
[2020-08-12] MEDS: Ampicillin Sodium/Sulbactam Na 3 GM in 0.9 % Sodium Chloride 100 ML IV ×4 (05:16→23:13)
[2020-08-12 07:33] VITALS: BP 122/76; PULSE 68; RESP 20; TEMP 37.1; O2SAT 97
[2020-08-12] MEDS: Enoxaparin Sodium 40 MG/0.4 ML SYRINGE SUBCUT (08:22)
[2020-08-12] MEDS: 0.9 % Sodium Chloride Flush 3 ML SYRINGE IVFLUSH (08:35)
--- NOTE | 2020-08-12 10:06 | P.PNIM_ITS ---
Subjective Subjective Date of Service: 08/12/20 Interval History: no complaints, not really participating in conversation though, much more alert and less stiff than past couple of days Cardiovascular Cardiovascular: Reports no additional cardiovascular complaints Gastrointestinal Gastrointestinal: Reports no additional gastrointestinal complaints Physical Exam Vital Signs: Vital Signs: Last Vital Signs Temp 98.8 F 08/12/20 07:33 Pulse 68 08/12/20 07:33 Resp 20 08/12/20 07:33 BP 122/76 08/12/20 07:33 Pulse Ox 97 08/12/20 07:33 Body Mass Index 25.7 General: Alert, minimally verbal Resp: CTA bilateral CVS: S1,S2,RRR GI: soft, non tender, non distended Neuro: not participatory, less stiff, confused Psych: impaired insight Objective Data Current Medications Generic Name Dose Route Start Last Admin Trade Name Freq PRN Reason Stop Dose Admin Amlodipine Besylate 2.5 mg 08/05/20 09:00 08/12/20 08:33 Amlodipine Besylate 2.5 Mg Tablet PO Not Given DAILY@0900 [facility] Protocol Aspirin 81 mg 08/05/20 09:00 08/12/20 08:33 Aspirin 81 Mg Tab.Chew PO Not Given DAILY@0900 [facility] Atorvastatin Calcium 10 mg 08/05/20 21:00 08/11/20 21:38 Atorvastatin Calcium 10 Mg Tablet PO Not Given BEDTIME [facility] Divalproex Sodium 750 mg 08/05/20 09:00 08/12/20 08:33 Divalproex Sodium Sprinkles 125 Mg Cap. PO Not Given DAILY [facility] Divalproex Sodium 1,000 mg 08/05/20 21:00 08/11/20 21:39 Divalproex Sodium Sprinkles 125 Mg Cap. PO Not Given BEDTIME [facility] Docusate Sodium 100 mg 08/05/20 00:34 Docusate Sodium 100 Mg Capsule PO DAILY PRN Constipation Enoxaparin Sodium 40 mg 08/09/20 09:00 08/12/20 08:22 Enoxaparin Sodium 40 Mg/0.4 Ml Syringe SUBCUT 40 mg Q24H [facility] Administration Escitalopram Oxalate 20 mg 08/05/20 21:00 08/11/20 21:39 Escitalopram Oxalate 20 Mg Tablet PO Not Given BEDTIME [facility] Famotidine 40 mg 08/05/20 09:00 08/12/20 08:33 Famotidine 20 Mg Tablet PO Not Given DAILY@0900 [facility] Hydralazine HCl 5 mg 08/10/20 17:23 08/10/20 17:59 Hydralazine Hcl 20 Mg/Ml Vial IVPUSH 5 mg Q6H PRN Administration bp>160 Protocol Ampicillin Sodium/Sulbactam 100 mls @ 200 mls/hr 08/10/20 17:30 08/12/20 05:52 Sodium 3 gm/ Sodium Chloride IV Infused Q6H [facility] Infusion Sodium Chloride 3 ml 08/05/20 00:34 08/12/20 08:35 0.9 % Sodium Chloride Flush 3 Ml Syringe IVFLUSH 3 ml QSHIFT [facility] Administration Vitamin D 25 mcg 08/05/20 09:00 08/12/20 08:33 Cholecalciferol (Vitamin D3) 25 Mcg Tablet PO Not Given DAILY [facility] Labs CBC & Chem 7: 08/11/20 05:36 08/11/20 05:36 Microbiology Microbiology Results: Microbiology 08/07/20 19:03 Blood - Venous Blood Culture - Preliminary No growth after 48 hours. 08/07/20 19:03 Blood - Venous Blood Culture - Preliminary No growth after 48 hours. Assessment and Plan (1) Encephalopathy: Status: Acute Assessment and Plan: 64M presented with ams, became febrile, hypoxic, and hypotensive, was sent to ICU, in ICU zyprexa was held, given empiric antibiotics, and hypoxia, hypotension resolved. now on floor patient with perissitent AMS and fevers fevers not clear if infectious possible NMS but less likely with low CPK, although could be atypical presentation with minimal rigidity holding antipsychotics antipyretics as needed, has been afebrile and much improved mental status, though not back to baseline monitor check depakote level check eeg acute hypoxic respiratory failure due to aspiration pneumonia unasyn day 3 hypoxia resolved metabolic encephalopathy due to above complicated by hypernatremia hypotonic fluids mont[facility]
[2020-08-12] MEDS: Dextrose 5 % and 0.45 % NaCl 1,000 ML 80 ML IVCONT (10:30)
[2020-08-12 10:51] VITALS: BP 127/74; PULSE 68; RESP 20; TEMP 36.8
--- NOTE | 2020-08-12 11:38 | MHC.CM.PN ---
Per ROUNDS discussion, Patient is not expected to dc over the weekend. Plan for dc continues to be to return to [facility], where Patient is a bedhold. CM will follow.
[2020-08-12 12:11] LABS: Hematocrit 39.4 % (42-52); Hemoglobin 12.7 g/dl (14.0-18.0); Mean Corpuscular HGB Conc 32.2 g/dl (31.0-36.0); Mean Corpuscular Hemoglobin 27.9 pg (27.0-33.0); Mean Corpuscular Volume 86.4 fL (80-98); Mean Platelet Volume 9.7 fL (9.4-12.4); Platelet Count 215 X10*3/uL (160-400); Red Blood Count 4.56 X10*6/uL (4.60-5.80); Red Cell Distribution Width 13.8 % (11.0-16.0); White Blood Count 8.6 X10*3/uL (4.8-10.8)
[2020-08-12 12:38] LABS: Anion Gap 14 (12-20); Blood Urea Nitrogen 13 mg/dL (9-16); Carbon Dioxide 25 mmol/L (22-29); Chloride 111 mmol/L (96-108); Creatinine Clr Calc Pharmacy 131.7; Estimated Glomerular Filt Rate > 60; Glucose Random 93 mg/dL (60-115); Potassium 2.9 mmol/L (3.3-5.1); Sodium 147 mmol/L (135-145)
[2020-08-12 12:47] LABS: Valproate 52.2 mcg/mL (50.0-100.0)
--- NOTE | 2020-08-12 14:05 | MHC.CLN ---
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
[2020-08-12] MEDS: Potassium Chloride/H20 10 MEQ/100 ML PIGGYBACK 100 MEQ IV ×4 (14:51→21:37)
--- NOTE | 2020-08-12 14:55 | MHC.SLORD ---
Speech Language Pathology Order Status: Patient was sleeping when DIRECTOR OF TRAINING arrived this morning. Opened eyes to sternal rub but unable to keep eyes open. Patient was not appropriate for PO trials. Will continue to follow.
[2020-08-12 15:22] VITALS: BP 160/76; PULSE 66; RESP 18; TEMP 36.7; O2SAT 97
[2020-08-12 19:17] VITALS: BP 140/83; PULSE 70; RESP 16; TEMP 36.7; O2SAT 95
[2020-08-12] MEDS: LORazepam 2 MG/ML VIAL 1 MG IVPUSH (21:12)
[2020-08-13] VITALS (7 sets, daily range): BP systolic 106–149; BP diastolic 60–91; PULSE 62–100; RESP 18–20; TEMP 35.9–36.9; O2SAT 92–100
[2020-08-13] MEDS: Dextrose 5 % and 0.45 % NaCl 1,000 ML 80 ML IVCONT ×2 (02:56→18:03)
[2020-08-13] MEDS: Ampicillin Sodium/Sulbactam Na 3 GM in 0.9 % Sodium Chloride 100 ML IV ×4 (05:17→23:04)
[2020-08-13 07:01] LABS: Hematocrit 40.6 % (42-52); Hemoglobin 13.1 g/dl (14.0-18.0); Mean Corpuscular HGB Conc 32.3 g/dl (31.0-36.0); Mean Corpuscular Hemoglobin 27.9 pg (27.0-33.0); Mean Corpuscular Volume 86.6 fL (80-98); Mean Platelet Volume 9.5 fL (9.4-12.4); Platelet Count 237 X10*3/uL (160-400); Red Blood Count 4.69 X10*6/uL (4.60-5.80); Red Cell Distribution Width 13.8 % (11.0-16.0); White Blood Count 7.3 X10*3/uL (4.8-10.8)
[2020-08-13 07:14] LABS: Anion Gap 15 (12-20); Blood Urea Nitrogen 10 mg/dL (9-16); Calcium 7.9 mg/dL (8.4-10.2); Carbon Dioxide 25 mmol/L (22-29); Chloride 110 mmol/L (96-108); Creatinine Clr Calc Pharmacy 127.6; Estimated Glomerular Filt Rate > 60; Glucose Fasting 78 mg/dL (60-99); Potassium 3.4 mmol/L (3.3-5.1); Sodium 147 mmol/L (135-145)
[2020-08-13] MEDS: Enoxaparin Sodium 40 MG/0.4 ML SYRINGE SUBCUT (09:23)
--- NOTE | 2020-08-13 11:19 | P.PNIM_ITS ---
Subjective Subjective Date of Service: 08/13/20 Interval History: not talking today Cardiovascular Cardiovascular: Reports no additional cardiovascular complaints Genitourinary Genitourinary: Reports no additional male genitourinary complaints Physical Exam Vital Signs: Vital Signs: Last Vital Signs Temp 97 F 08/13/20 07:37 Pulse 64 08/13/20 07:37 Resp 18 08/13/20 07:37 BP 121/79 08/13/20 07:37 Pulse Ox 96 08/13/20 07:37 Body Mass Index 25.7 General: alert, not talking today, a bit more rigid Resp: CTA bilateral CVS: S1,S2,RRR GI: soft, non tender, non distended Neuro: mild rigidity Psych: impaired insight Objective Data Current Medications Generic Name Dose Route Start Last Admin Trade Name Freq PRN Reason Stop Dose Admin Amlodipine Besylate 2.5 mg 08/05/20 09:00 08/13/20 09:05 Amlodipine Besylate 2.5 Mg Tablet PO Not Given DAILY@0900 [facility] Protocol Aspirin 81 mg 08/05/20 09:00 08/13/20 09:05 Aspirin 81 Mg Tab.Chew PO Not Given DAILY@0900 [facility] Atorvastatin Calcium 10 mg 08/05/20 21:00 08/12/20 21:42 Atorvastatin Calcium 10 Mg Tablet PO Not Given BEDTIME [facility] Divalproex Sodium 750 mg 08/05/20 09:00 08/13/20 09:05 Divalproex Sodium Sprinkles 125 Mg Cap. PO Not Given DAILY [facility] Divalproex Sodium 1,000 mg 08/05/20 21:00 08/12/20 21:42 Divalproex Sodium Sprinkles 125 Mg Cap. PO Not Given BEDTIME [facility] Docusate Sodium 100 mg 08/05/20 00:34 Docusate Sodium 100 Mg Capsule PO DAILY PRN Constipation Enoxaparin Sodium 40 mg 08/09/20 09:00 08/13/20 09:23 Enoxaparin Sodium 40 Mg/0.4 Ml Syringe SUBCUT 40 mg Q24H [facility] Administration Escitalopram Oxalate 20 mg 08/05/20 21:00 08/12/20 21:42 Escitalopram Oxalate 20 Mg Tablet PO Not Given BEDTIME [facility] Famotidine 40 mg 08/05/20 09:00 08/13/20 09:04 Famotidine 20 Mg Tablet PO Not Given DAILY@0900 [facility] Hydralazine HCl 5 mg 08/10/20 17:23 08/10/20 17:59 Hydralazine Hcl 20 Mg/Ml Vial IVPUSH 5 mg Q6H PRN Administration bp>160 Protocol Ampicillin Sodium/Sulbactam 100 mls @ 200 mls/hr 08/10/20 17:30 08/13/20 06:08 Sodium 3 gm/ Sodium Chloride IV Infused Q6H [facility] Infusion Dextrose/Sodium Chloride 1,000 mls @ 80 mls/hr 08/12/20 10:15 08/13/20 02:56 D51/2ns IVCONT 80 mls/hr .[id number] [facility] Administration Lorazepam 1 mg 08/12/20 14:28 08/12/20 21:12 Lorazepam 2 Mg/Ml Vial IVPUSH 1 mg BID PRN Administration Restlessness, agitation Sodium Chloride 3 ml 08/05/20 00:34 08/13/20 09:04 0.9 % Sodium Chloride Flush 3 Ml Syringe IVFLUSH Not Given QSHIFT [facility] Vitamin D 25 mcg 08/05/20 09:00 08/13/20 09:05 Cholecalciferol (Vitamin D3) 25 Mcg Tablet PO Not Given DAILY [facility] Labs CBC & Chem 7: 08/13/20 05:59 08/13/20 05:59 Microbiology Microbiology Results: Microbiology 08/07/20 19:03 Blood - Venous Blood Culture - Final No growth after 5 days. 08/07/20 19:03 Blood - Venous Blood Culture - Final No growth after 5 days. Assessment and Plan (1) Encephalopathy: Status: Acute Assessment and Plan: 64M presented with ams, became febrile, hypoxic, and hypotensive, was sent to ICU, in ICU zyprexa was held, given empiric antibiotics, and hypoxia, hypotension resolved. now on floor patient with perissitent AMS and fevers fevers not clear if infectious possible NMS but less likely with low CPK, although could be atypical presentation with minimal rigidity holding antipsychotics antipyretics as needed, has been afebrile and much improved mental status, though not back to baseline, a bit worse today, than yesterday, but do expect improvement over the next couple days before deciding on alternative means of nutrition monitor unable to obtain eeg acute hypoxic respiratory failure due to aspiration pneumonia unasyn day 4 hypoxia resolved metabolic encephalopathy due to above complicated by hypernatremia hypotonic fluids martha
[2020-08-13] MEDS: LORazepam 2 MG/ML VIAL 1 MG IVPUSH (18:02)
[2020-08-14 04:00] VITALS: BP 139/71; PULSE 62; RESP 18; TEMP 36.4; O2SAT 96
[2020-08-14] MEDS: Ampicillin Sodium/Sulbactam Na 3 GM in 0.9 % Sodium Chloride 100 ML IV ×3 (05:21→17:51)
[2020-08-14 07:13] LABS: Hemoglobin 12.6 g/dl (14.0-18.0); Mean Corpuscular HGB Conc 32.3 g/dl (31.0-36.0); Mean Corpuscular Hemoglobin 27.9 pg (27.0-33.0); Mean Corpuscular Volume 86.5 fL (80-98); Mean Platelet Volume 9.2 fL (9.4-12.4); Platelet Count 241 X10*3/uL (160-400); Red Blood Count 4.51 X10*6/uL (4.60-5.80); Red Cell Distribution Width 13.7 % (11.0-16.0); White Blood Count 6.5 X10*3/uL (4.8-10.8)
[2020-08-14 07:37] LABS: Anion Gap 14 (12-20); Blood Urea Nitrogen 7 mg/dL (9-16); Calcium 7.8 mg/dL (8.4-10.2); Carbon Dioxide 24 mmol/L (22-29); Chloride 113 mmol/L (96-108); Creatinine Clr Calc Pharmacy 131.7; Estimated Glomerular Filt Rate > 60; Glucose Fasting 80 mg/dL (60-99); Potassium 3.6 mmol/L (3.3-5.1); Sodium 147 mmol/L (135-145)
[2020-08-14] MEDS: Dextrose 5 % and 0.45 % NaCl 1,000 ML 80 ML IVCONT ×2 (07:47→22:16)
[2020-08-14] MEDS: Enoxaparin Sodium 40 MG/0.4 ML SYRINGE SUBCUT (07:50)
--- NOTE | 2020-08-14 11:40 | P.PNIM_ITS ---
Subjective Subjective Date of Service: 08/14/20 Interval History: not answering Cardiovascular Cardiovascular: Reports no additional cardiovascular complaints Gastrointestinal Gastrointestinal: Reports no additional gastrointestinal complaints Physical Exam Vital Signs: Vital Signs: Last Vital Signs Temp 97.6 F 08/14/20 04:00 Pulse 62 08/14/20 04:00 Resp 18 08/14/20 04:00 BP 139/71 08/14/20 04:00 Pulse Ox 96 08/14/20 04:00 Body Mass Index 25.7 General: alert, not talking , rigid Resp: CTA bilateral CVS: S1,S2,RRR GI: soft, non tender, non distended Neuro: mild rigidity Psych: impaired insight Objective Data Current Medications Generic Name Dose Route Start Last Admin Trade Name Freq PRN Reason Stop Dose Admin Amlodipine Besylate 2.5 mg 08/05/20 09:00 08/14/20 07:45 Amlodipine Besylate 2.5 Mg Tablet PO Not Given DAILY@0900 [facility] Protocol Aspirin 81 mg 08/05/20 09:00 08/14/20 07:45 Aspirin 81 Mg Tab.Chew PO Not Given DAILY@0900 [facility] Atorvastatin Calcium 10 mg 08/05/20 21:00 08/13/20 21:51 Atorvastatin Calcium 10 Mg Tablet PO Not Given BEDTIME [facility] Divalproex Sodium 750 mg 08/05/20 09:00 08/14/20 07:46 Divalproex Sodium Sprinkles 125 Mg Cap. PO Not Given DAILY [facility] Divalproex Sodium 1,000 mg 08/05/20 21:00 08/13/20 21:51 Divalproex Sodium Sprinkles 125 Mg Cap. PO Not Given BEDTIME [facility] Docusate Sodium 100 mg 08/05/20 00:34 Docusate Sodium 100 Mg Capsule PO DAILY PRN Constipation Enoxaparin Sodium 40 mg 08/09/20 09:00 08/14/20 07:50 Enoxaparin Sodium 40 Mg/0.4 Ml Syringe SUBCUT 40 mg Q24H [facility] Administration Escitalopram Oxalate 20 mg 08/05/20 21:00 08/13/20 21:52 Escitalopram Oxalate 20 Mg Tablet PO Not Given BEDTIME [facility] Famotidine 40 mg 08/05/20 09:00 08/14/20 07:46 Famotidine 20 Mg Tablet PO Not Given DAILY@0900 [facility] Hydralazine HCl 5 mg 08/10/20 17:23 08/10/20 17:59 Hydralazine Hcl 20 Mg/Ml Vial IVPUSH 5 mg Q6H PRN Administration bp>160 Protocol Ampicillin Sodium/Sulbactam 100 mls @ 200 mls/hr 08/10/20 17:30 08/14/20 11:29 Sodium 3 gm/ Sodium Chloride IV 200 mls/hr Q6H [facility] Administration Dextrose/Sodium Chloride 1,000 mls @ 80 mls/hr 08/12/20 10:15 08/14/20 07:47 D51/2ns IVCONT 80 mls/hr .[id number] [facility] Administration Lorazepam 1 mg 08/12/20 14:28 08/13/20 18:02 Lorazepam 2 Mg/Ml Vial IVPUSH 1 mg BID PRN Administration Restlessness, agitation Sodium Chloride 3 ml 08/05/20 00:34 08/14/20 07:45 0.9 % Sodium Chloride Flush 3 Ml Syringe IVFLUSH Not Given QSHIFT [facility] Vitamin D 25 mcg 08/05/20 09:00 08/14/20 07:46 Cholecalciferol (Vitamin D3) 25 Mcg Tablet PO Not Given DAILY [facility] Labs CBC & Chem 7: 08/14/20 06:03 08/14/20 06:03 Microbiology Microbiology Results: Microbiology 08/07/20 19:03 Blood - Venous Blood Culture - Final No growth after 5 days. 08/07/20 19:03 Blood - Venous Blood Culture - Final No growth after 5 days. Assessment and Plan (1) Encephalopathy: Status: Acute Assessment and Plan: 64M presented with ams, became febrile, hypoxic, and hypotensive, was sent to ICU, in ICU zyprexa was held, given empiric antibiotics, and hypoxia, hypotension resolved. now on floor patient with perissitent AMS and fevers fevers not clear if infectious possible NMS but less likely with low CPK, although could be atypical presentation with minimal rigidity continue to hold antipsychotics antipyretics as needed, has been afebrile and much improved mental status, though not back to baseline, d/w guardian, wants to wait a few more days before deciding on GTube, patient not a good candidate for NGT monitor unable to obtain eeg acute hypoxic respiratory failure due to aspiration pneumonia unasyn day 5 hypoxia resolved metabolic encephalopathy due to above complicated by hypernatremia hypotonic fluids montior
[2020-08-14 12:00] VITALS: BP 128/73; PULSE 62; RESP 18; TEMP 36.9; O2SAT 100
--- NOTE | 2020-08-14 13:40 | PM.NEUROCN ---
History of Present Illness Data of Consult Service Date: 08/14/20 Primary Care Provider: Unknown Physician 64 years old man with severe dementia I was asked to see him because of under able to respond. A question was raised about the possibility of neuroleptic malignant syndrome. Review of Systems Review of Systems: He did not communicate at this time. [facility] Past Medical History Medical History Advanced dementia HTN (hypertension) Social History Social History Household Members: None Housing: Group Home Do you presently have visiting nurse or other home services: No Unable to assess alcohol history related to: Unable to respond Patient Tobacco Use Status: Tobacco use Unknown Use of substances other than those prescribed or required for medical reasons: Unknown Currently Displaying Signs/Symptoms of Drug Intoxication Withdrawal: No Have you been hit, kicked, punched, or otherwise hurt by someone within the past year? If so, by whom?: No Do you feel safe in your current relationship?: No Current Relationship Is there a partner from a previous relationship who is making you feel unsafe now?: No Are you made to feel afraid or neglected: No Advance Directives: Yes Advance Directives Information Provided: No Advance Directives on File: No Advance Directives Date on File: 08/05/20 Do you have thoughts of harming others: None Do you have a plan to hurt others: No Plan Recently lost weight without trying: No Nutrition Risks: No Nutritional Risk Poor oral hygiene: No Meds Allergies Allergy/AdvReac Type Severity Reaction Status Date / Time atenolol Allergy Unknown Verified 08/04/20 13:37 duloxetine [From Cymbalta] Allergy Unknown Verified 08/04/20 13:37 ibuprofen Allergy Unknown Verified 08/04/20 13:37 levofloxacin [From Levaquin] Allergy Unknown Verified 08/04/20 13:37 Active Medications: Current Medications Generic Name Dose Route Start Last Admin Trade Name Freq PRN Reason Stop Dose Admin Amlodipine Besylate 2.5 mg 08/05/20 09:00 08/14/20 07:45 Amlodipine Besylate 2.5 Mg Tablet PO Not Given DAILY@0900 [facility] Protocol Aspirin 81 mg 08/05/20 09:00 08/14/20 07:45 Aspirin 81 Mg Tab.Chew PO Not Given DAILY@0900 [facility] Atorvastatin Calcium 10 mg 08/05/20 21:00 08/13/20 21:51 Atorvastatin Calcium 10 Mg Tablet PO Not Given BEDTIME [facility] Divalproex Sodium 750 mg 08/05/20 09:00 08/14/20 07:46 Divalproex Sodium Sprinkles 125 Mg Cap. PO Not Given DAILY [facility] Divalproex Sodium 1,000 mg 08/05/20 21:00 08/13/20 21:51 Divalproex Sodium Sprinkles 125 Mg Cap. PO Not Given BEDTIME [facility] Docusate Sodium 100 mg 08/05/20 00:34 Docusate Sodium 100 Mg Capsule PO DAILY PRN Constipation Enoxaparin Sodium 40 mg 08/09/20 09:00 08/14/20 07:50 Enoxaparin Sodium 40 Mg/0.4 Ml Syringe SUBCUT 40 mg Q24H [facility] Administration Escitalopram Oxalate 20 mg 08/05/20 21:00 08/13/20 21:52 Escitalopram Oxalate 20 Mg Tablet PO Not Given BEDTIME [facility] Famotidine 40 mg 08/05/20 09:00 08/14/20 07:46 Famotidine 20 Mg Tablet PO Not Given DAILY@0900 [facility] Hydralazine HCl 5 mg 08/10/20 17:23 08/10/20 17:59 Hydralazine Hcl 20 Mg/Ml Vial IVPUSH 5 mg Q6H PRN Administration bp>160 Protocol Ampicillin Sodium/Sulbactam 100 mls @ 200 mls/hr 08/10/20 17:30 08/14/20 12:33 Sodium 3 gm/ Sodium Chloride IV Infused Q6H [facility] Infusion Dextrose/Sodium Chloride 1,000 mls @ 80 mls/hr 08/12/20 10:15 08/14/20 07:47 D51/2ns IVCONT 80 mls/hr .[id number] [facility] Administration Lorazepam 1 mg 08/12/20 14:28 08/13/20 18:02 Lorazepam 2 Mg/Ml Vial IVPUSH 1 mg BID PRN Administration Restlessness, agitation Sodium Chloride 3 ml 08/05/20 00:34 08/14/20 07:45 0.9 % Sodium Chloride Flush 3 Ml Syringe IVFLUSH Not Given QSHIFT [facility] Vitamin D 25 mcg 08/05/20 09:00 08/14/20 07:46 Cholecalciferol (Vitamin D3) 25 Mcg Tablet PO Not Given DAILY [facility] Home Medications Medication Instructions Recorded Confirmed Last Taken Type amlodipine 2.5 mg PO DAILY@0900 08/04/20 08/04/20 08/04/20 History aspirin 81 mg PO DAILY@0900 08/04/20 08/04/20 08/04/20 History cholecalciferol (vitamin D3) 25 mcg PO DAILY 08/04/20 08/04/20 08/04/20 History divalproex 1,000 mg PO BEDTIME 08/04/20 08/04/20 08/04/20 History divalproex [Depakote Sprinkles] 750 mg PO DAILY 08/04/20 08/04/20 08/04/20 History escitalopram oxalate 20 mg PO BEDTIME 08/04/20 08/04/20 08/03/20 History famotidine 40 mg PO DAILY@0900 08/04/20 08/04/20 08/04/20 History lisinopril 40 mg PO DAILY 08/04/20 08/04/20 08/04/20 History olanzapine 5 mg PO DAILY 08/04/20 08/04/20 08/04/20 History olanzapine 10 mg PO BEDTIME 08/04/20 08/04/20 08/03/20 History simvastatin 20 mg PO BEDTIME 08/04/20 08/04/20 08/03/20 History trazodone 100 mg PO BEDTIME 08/04/20 08/04/20 08/03/20 History Physical Exam Vital Signs: Vital Signs: Last Vital Signs Temp 98.5 F 08/14/20 12:00 Pulse 62 08/14/20 12:00 Resp 18 08/14/20 12:00 BP 128/73 08/14/20 12:00 Pulse Ox 100 08/14/20 12:00 Body Mass Index 25.7 Quite drowsy and not responsive to verbal stimuli. He grimaces to pain stimuli. There was mild rigidity in left arm. His pupils were round reactive and eyes are midline. There was no particular tremor. Deep tendon reflexes were trace with flexor plantars. Results Labs CBC & Chem 7: 08/14/20 06:03 08/14/20 06:03 Labs: Short CBC 08/09/20 08/11/2021 Range/Units 05:57 05:36 06:03 WBC 6.5 (4.8-10.8) X10*3/uL Hgb 12.6 L (14.0-18.0) g/dl Hct 39.0 L (42-52) % Plt Count 241 (160-400) X10*3/uL Total Creatine Kinase 414 H 176 H D (38-174) U/L BMP 08/14/20 06:03 Sodium 147 H Potassium 3.6 Chloride 113 H Carbon Dioxide 24 BUN 7 L Creatinine 0.63 Calcium 7.8 L His maximum CPK was in 400 range. Microbiology Microbiology Results: Microbiology 08/07/20 19:03 Blood - Venous Blood Culture - Final No growth after 5 days. 08/07/20 19:03 Blood - Venous Blood Culture - Final No growth after 5 days. Assessment and Plan (1) Encephalopathy: Status: Acute Overall clinical picture is not suggestive of neuroleptics malignant syndrome. At this time I would recommend obtaining an EEG to rule out any possibility of nonconvulsive status. With lack of fever and leukocytosis infection seems to be not likely explanation for this amount of encephalopathy. Maybe a noncontrast head CT can also be repeated to see if there is any evolving pathology that was not visible initially. Unfortunately MRI cannot be obtained at this time, which could also have helped. Procedures Date of Service Date of Service: 08/14/20
[2020-08-14 15:45] VITALS: BP 149/94; PULSE 58; RESP 18; TEMP 36.8
[2020-08-14 19:46] VITALS: BP 124/74; PULSE 58; RESP 16; TEMP 36.2
[2020-08-14] MEDS: 0.9 % Sodium Chloride Flush 3 ML SYRINGE IVFLUSH (20:23)
[2020-08-14 23:53] VITALS: BP 128/72; PULSE 68; RESP 18; TEMP 36.8; O2SAT 96
[2020-08-15] MEDS: Ampicillin Sodium/Sulbactam Na 3 GM in 0.9 % Sodium Chloride 100 ML IV ×4 (00:46→17:55)
[2020-08-15 04:00] VITALS: BP 143/87; PULSE 65; RESP 20; TEMP 37.1; O2SAT 98
[2020-08-15 06:58] LABS: Hematocrit 40.5 % (42-52); Hemoglobin 12.7 g/dl (14.0-18.0); Mean Corpuscular HGB Conc 31.4 g/dl (31.0-36.0); Mean Corpuscular Hemoglobin 27.4 pg (27.0-33.0); Mean Corpuscular Volume 87.5 fL (80-98); Mean Platelet Volume 9.2 fL (9.4-12.4); Platelet Count 247 X10*3/uL (160-400); Red Blood Count 4.63 X10*6/uL (4.60-5.80); Red Cell Distribution Width 13.8 % (11.0-16.0)
[2020-08-15 07:05] LABS: Anion Gap 13 (12-20); Blood Urea Nitrogen 6 mg/dL (9-16); Calcium 8.1 mg/dL (8.4-10.2); Carbon Dioxide 27 mmol/L (22-29); Chloride 111 mmol/L (96-108); Creatinine Clr Calc Pharmacy 116.8; Estimated Glomerular Filt Rate > 60; Glucose Fasting 85 mg/dL (60-99); Potassium 3.7 mmol/L (3.3-5.1); Sodium 147 mmol/L (135-145)
[2020-08-15 07:50] VITALS: BP 177/92; PULSE 65; RESP 18; TEMP 37.1; O2SAT 92
[2020-08-15] MEDS: Enoxaparin Sodium 40 MG/0.4 ML SYRINGE SUBCUT (09:15)
--- NOTE | 2020-08-15 10:16 | HO.PM.IMPN ---
Subjective Subjective Date of Service: 08/15/20 Interval History: not answering questions Cardiovascular Cardiovascular: Reports no additional cardiovascular complaints Respiratory Respiratory: Reports no additional respiratory complaints Physical Exam Vital Signs: Vital Signs: Last Vital Signs Temp 98.7 F 08/15/20 07:50 Pulse 65 08/15/20 07:50 Resp 18 08/15/20 07:50 BP 177/92 H 08/15/20 07:50 Pulse Ox 92 08/15/20 07:50 Body Mass Index 25.7 General: alert, not talking , rigid Resp: CTA bilateral CVS: S1,S2,RRR GI: soft, non tender, non distended Neuro: mild rigidity Psych: impaired insight Objective Data Current Medications Generic Name Dose Route Start Last Admin Trade Name Freq PRN Reason Stop Dose Admin Amlodipine Besylate 2.5 mg 08/05/20 09:00 08/15/20 09:14 Amlodipine Besylate 2.5 Mg Tablet PO Not Given DAILY@0900 [facility] Protocol Aspirin 81 mg 08/05/20 09:00 08/15/20 09:14 Aspirin 81 Mg Tab.Chew PO Not Given DAILY@0900 [facility] Atorvastatin Calcium 10 mg 08/05/20 21:00 08/14/20 20:23 Atorvastatin Calcium 10 Mg Tablet PO Not Given BEDTIME [facility] Divalproex Sodium 750 mg 08/05/20 09:00 08/15/20 09:15 Divalproex Sodium Sprinkles 125 Mg Cap. PO Not Given DAILY [facility] Divalproex Sodium 1,000 mg 08/05/20 21:00 08/14/20 20:23 Divalproex Sodium Sprinkles 125 Mg Cap. PO Not Given BEDTIME [facility] Docusate Sodium 100 mg 08/05/20 00:34 Docusate Sodium 100 Mg Capsule PO DAILY PRN Constipation Enoxaparin Sodium 40 mg 08/09/20 09:00 08/15/20 09:15 Enoxaparin Sodium 40 Mg/0.4 Ml Syringe SUBCUT 40 mg Q24H [facility] Administration Escitalopram Oxalate 20 mg 08/05/20 21:00 08/14/20 20:23 Escitalopram Oxalate 20 Mg Tablet PO Not Given BEDTIME [facility] Famotidine 40 mg 08/05/20 09:00 08/15/20 09:15 Famotidine 20 Mg Tablet PO Not Given DAILY@0900 [facility] Hydralazine HCl 5 mg 08/10/20 17:23 08/10/20 17:59 Hydralazine Hcl 20 Mg/Ml Vial IVPUSH 5 mg Q6H PRN Administration bp>160 Protocol Ampicillin Sodium/Sulbactam 100 mls @ 200 mls/hr 08/10/20 17:30 08/15/20 05:03 Sodium 3 gm/ Sodium Chloride IV Infused Q6H [facility] Infusion Dextrose/Sodium Chloride 1,000 mls @ 80 mls/hr 08/12/20 10:15 08/14/20 22:16 D51/2ns IVCONT 80 mls/hr .[id number] [facility] Administration Lorazepam 1 mg 08/12/20 14:28 08/13/20 18:02 Lorazepam 2 Mg/Ml Vial IVPUSH 1 mg BID PRN Administration Restlessness, agitation Sodium Chloride 3 ml 08/05/20 00:34 08/15/20 09:14 0.9 % Sodium Chloride Flush 3 Ml Syringe IVFLUSH Not Given QSHIFT [facility] Vitamin D 25 mcg 08/05/20 09:00 08/15/20 09:14 Cholecalciferol (Vitamin D3) 25 Mcg Tablet PO Not Given DAILY [facility] Labs CBC & Chem 7: 08/15/20 06:23 08/15/20 06:23 Microbiology Microbiology Results: Microbiology 08/07/20 19:03 Blood - Venous Blood Culture - Final No growth after 5 days. 08/07/20 19:03 Blood - Venous Blood Culture - Final No growth after 5 days. Assessment and Plan (1) Encephalopathy: Status: Acute Assessment and Plan: 64M presented with ams, became febrile, hypoxic, and hypotensive, was sent to ICU, in ICU zyprexa was held, given empiric antibiotics, and hypoxia, hypotension resolved. now on floor patient with perissitent AMS and fevers fevers has been afebril several days now not clear if infectious NMS felt to be unlikely would continue to hold antipsychotics though much improved mental status, though not back to baseline, d/w guardian, wants to wait a few more days before deciding on GTube, patient not a good candidate for NGT, and was actually able to have an ensure today, will continue to monitor unable to obtain eeg acute hypoxic respiratory failure due to aspiration pneumonia unasyn day 08/09 hypoxia resolved metabolic encephalopathy due to above complicated by hypernatremia hypotonic fluids montior
[2020-08-15 11:27] VITALS: BP 127/91; PULSE 62; RESP 18; TEMP 36.6; O2SAT 100
--- NOTE | 2020-08-15 11:37 | MHC.CLN ---
F/U PO INTAKE REMAINS POOR 0% RECORDED 08/12-08/14 DIET RX: GRD MS WITH NT LIQ-APPROPRIATE [employer] CONTINUES TO FOLLOW FOR DIET CONSISTENCY PT RECEIVING ENSURE BID PROVIDES 700KCALS, 40G PROTEIN NOTED: d/w guardian, wants to wait a few more days before deciding on GTube, patient not a good candidate for NGT monitor CONSULT RD IF ALTERATIVE NUTRITION SUPPORT IS NEEDED FOLLOWING
--- NOTE | 2020-08-15 11:55 | MHC.SL.DTX ---
Pre-Treatment Diet: NDD2 NECTAR THICK CRUSHED IN PUREE Subjective: Changes made to current diet?: Yes Dysphasia Diet Status: DOWNGRADE Liquid Consistency and Strategies: Liquid Intake Recommendation: [place] Thick Compensatory Strategies for Safe Swallow: Small Sips Compensatory Strategies for Safe Swallow(b): Sitting Upright (90 deg) Liquids from Cup Small Bites and Sips Alternate Liquids/Solids Solid Food Consistency: Dietary Recommendations: Pureed (NDD1) Additional Modifications to Solids: Oral Medication Intake: Crushed with Puree Strategies and Precautions to be Taken for Safe Swallow: Compensatory Swallowing Status: Sitting Upright (90 deg) Liquids from Cup Small Bites and Sips Alternate Liquids/Solids Supervision While Eating and/Drinking: Total Assistance Foods to Avoid: Avoid tough/dry/sticky foods. Swallowing Recommended Treatments: Compens. Strategy Educat. Level of Impact on: Daily activities: Severe Interpersonal interactions: Severe Education: None Employment: None Community: Severe Prognosis for Improvement: Guarded Recommendation for Speech: Inpatient Speech Therapy Comment: PROFESSOR OF SPECIAL EDUCATION to continue to follow during hospitalization. Frequency/Duration: Date Range for Service Req: Timeline to reassess: Additional Comments: Treatment: Pt was seen this date for dysphagia follow up. Per RN, pt is refusing PO. He will take a single bite, then clench his jaw shut in refusal. Pt minimally verbal this date. It appears he can communicate, just chooses not to. When asked if he was hungry, pt stated yes and nodded his head. When asked if he needed anything else, pt stated Yes, I need you . PROFESSOR OF SPECIAL EDUCATION attempted to give pt thickened liquid though pt refused. Pt accepted limited PO intake of pureed solids. He was noted to take miniscule bites. When he did not want any more, he would clench his mouth shut. Assessment: Supervisor Cigarette Making Department Clinican/Clinical Fellow: Yes: Lorena Correia M.A., [facility]-PROFESSOR OF SPECIAL EDUCATION Supervisory Statement: I have reviewed and agree with the student/clinical fellow's documentation: N/A Speech Language Pathologist: Vijaya Arteaga M.A., [facility]-PROFESSOR OF SPECIAL EDUCATION
[2020-08-15] MEDS: Dextrose 5 % and 0.45 % NaCl 1,000 ML 80 ML IVCONT (12:08)
--- NOTE | 2020-08-15 12:59 | MHC.CM.PN ---
Per ROUNDS discussion, Patient is not yet medically cleared for dc (? PEG/Await Guardian's decision, IV Ampicillin, recentIV Ativan, ). Patient is a bed hold for LTC @ [facility] and CM will follow for dc planning.
[2020-08-15 16:00] VITALS: BP 108/69; RESP 20; TEMP 37.2; O2SAT 92
[2020-08-15 19:44] VITALS: BP 122/84; RESP 20; TEMP 36.6
[2020-08-15 23:54] VITALS: BP 135/61; PULSE 72; RESP 18; TEMP 36.6; O2SAT 98
[2020-08-16] MEDS: Ampicillin Sodium/Sulbactam Na 3 GM in 0.9 % Sodium Chloride 100 ML IV ×5 (00:14→22:34)
[2020-08-16] MEDS: 0.9 % Sodium Chloride Flush 3 ML SYRINGE IVFLUSH ×3 (00:17→20:51)
[2020-08-16 03:45] VITALS: BP 145/75; PULSE 70; RESP 20; TEMP 37.5; O2SAT 97
[2020-08-16] MEDS: Dextrose 5 % and 0.45 % NaCl 1,000 ML 80 ML IVCONT ×2 (03:48→13:37)
[2020-08-16 07:32] VITALS: BP 134/78; PULSE 69; RESP 18; TEMP 36.2; O2SAT 99
[2020-08-16 07:38] LABS: Hematocrit 39.1 % (42-52); Hemoglobin 12.4 g/dl (14.0-18.0); Mean Corpuscular HGB Conc 31.7 g/dl (31.0-36.0); Mean Corpuscular Hemoglobin 27.5 pg (27.0-33.0); Mean Corpuscular Volume 86.7 fL (80-98); Mean Platelet Volume 9.6 fL (9.4-12.4); Platelet Count 266 X10*3/uL (160-400); Red Blood Count 4.51 X10*6/uL (4.60-5.80); Red Cell Distribution Width 13.7 % (11.0-16.0); White Blood Count 8.1 X10*3/uL (4.8-10.8)
[2020-08-16 08:12] LABS: Anion Gap 13 (12-20); Blood Urea Nitrogen 7 mg/dL (9-16); Carbon Dioxide 23 mmol/L (22-29); Chloride 112 mmol/L (96-108); Creatinine Clr Calc Pharmacy 125.7; Estimated Glomerular Filt Rate > 60; Glucose Fasting 86 mg/dL (60-99); Potassium 3.8 mmol/L (3.3-5.1); Sodium 144 mmol/L (135-145)
--- NOTE | 2020-08-16 10:46 | MHC.SLORD ---
Speech Language Pathology Order Status: REHABILITATION LIAISON attempted to see pt this morning for PO trials. Pt refused. He would clench his mouth shut when REHABILITATION LIAISON tried to feed pt. Per RN, pt refused breakfast this morning as well. REHABILITATION LIAISON will continue to follow during hospitalization, as appropriate.
[2020-08-16 11:43] VITALS: BP 131/79; PULSE 62; RESP 18; TEMP 36.8; O2SAT 100
--- NOTE | 2020-08-16 12:36 | P.PNIM_ITS ---
Subjective Subjective Date of Service: 08/16/20 Interval History: not really talking Cardiovascular Cardiovascular: Reports no additional cardiovascular complaints Gastrointestinal Gastrointestinal: Reports no additional gastrointestinal complaints Physical Exam Vital Signs: Vital Signs: Last Vital Signs Temp 98.2 F 08/16/20 11:43 Pulse 62 08/16/20 11:43 Resp 18 08/16/20 11:43 BP 131/79 08/16/20 11:43 Pulse Ox 100 08/16/20 11:43 Body Mass Index 25.7 General: alert, not talking Resp: CTA bilateral CVS: S1,S2,RRR GI: soft, non tender, non distended Neuro: mild rigidity Psych: impaired insight Objective Data Current Medications Generic Name Dose Route Start Last Admin Trade Name Freq PRN Reason Stop Dose Admin Amlodipine Besylate 2.5 mg 08/05/20 09:00 08/16/20 10:21 Amlodipine Besylate 2.5 Mg Tablet PO Not Given DAILY@0900 [facility] Protocol Aspirin 81 mg 08/05/20 09:00 08/16/20 10:21 Aspirin 81 Mg Tab.Chew PO Not Given DAILY@0900 [facility] Atorvastatin Calcium 10 mg 08/05/20 21:00 08/15/20 21:55 Atorvastatin Calcium 10 Mg Tablet PO Not Given BEDTIME [facility] Divalproex Sodium 750 mg 08/05/20 09:00 08/16/20 10:21 Divalproex Sodium Sprinkles 125 Mg Cap. PO Not Given DAILY [facility] Divalproex Sodium 1,000 mg 08/05/20 21:00 08/15/20 21:55 Divalproex Sodium Sprinkles 125 Mg Cap. PO Not Given BEDTIME [facility] Docusate Sodium 100 mg 08/05/20 00:34 Docusate Sodium 100 Mg Capsule PO DAILY PRN Constipation Enoxaparin Sodium 40 mg 08/09/20 09:00 08/16/20 10:21 Enoxaparin Sodium 40 Mg/0.4 Ml Syringe SUBCUT Not Given Q24H [facility] Escitalopram Oxalate 20 mg 08/05/20 21:00 08/15/20 21:56 Escitalopram Oxalate 20 Mg Tablet PO Not Given BEDTIME [facility] Famotidine 40 mg 08/05/20 09:00 08/16/20 10:21 Famotidine 20 Mg Tablet PO Not Given DAILY@0900 [facility] Hydralazine HCl 5 mg 08/10/20 17:23 08/10/20 17:59 Hydralazine Hcl 20 Mg/Ml Vial IVPUSH 5 mg Q6H PRN Administration bp>160 Protocol Ampicillin Sodium/Sulbactam 100 mls @ 200 mls/hr 08/10/20 17:30 08/16/20 06:47 Sodium 3 gm/ Sodium Chloride IV Infused Q6H [facility] Infusion Dextrose/Sodium Chloride 1,000 mls @ 80 mls/hr 08/12/20 10:15 08/16/20 03:48 D51/2ns IVCONT 80 mls/hr .[id number] [facility] Administration Lorazepam 1 mg 08/12/20 14:28 08/13/20 18:02 Lorazepam 2 Mg/Ml Vial IVPUSH 1 mg BID PRN Administration Restlessness, agitation Sodium Chloride 3 ml 08/05/20 00:34 08/16/20 06:10 0.9 % Sodium Chloride Flush 3 Ml Syringe IVFLUSH 3 ml QSHIFT [facility] Administration Vitamin D 25 mcg 08/05/20 09:00 08/16/20 10:21 Cholecalciferol (Vitamin D3) 25 Mcg Tablet PO Not Given DAILY [facility] Labs CBC & Chem 7: 08/16/20 05:50 08/16/20 05:50 Labs: Laboratory Results - last 24 hr 08/16/20 08/16/20 05:50 05:50 WBC 8.1 RBC 4.51 L Hgb 12.4 L Hct 39.1 L MCV 86.7 MCH 27.5 MCHC 31.7 RDW 13.7 Plt Count 266 MPV 9.6 Absolute Nucleated RBC 0.000 Nucleated RBC % (auto) 0.0 Sodium 144 Potassium 3.8 Chloride 112 H Carbon Dioxide 23 Anion Gap 13 BUN 7 L Creatinine 0.66 Estim Creat Clear Calc 125.7 Estimated GFR > 60 Fasting Glucose 86 Calcium 8.0 L Assessment and Plan (1) Encephalopathy: Status: Acute Assessment and Plan: 64M presented with ams, became febrile, hypoxic, and hypotensive, was sent to ICU, in ICU zyprexa was held, given empiric antibiotics, and hypoxia, hypotension resolved. now on floor patient with perissitent AMS and fevers fevers has been afebrile several days now not clear if infectious NMS felt to be unlikely due to normal CPK would continue to hold antipsychotics though much improved mental status, though not back to baseline, has just started to eat some ensures today unable to obtain eeg acute hypoxic respiratory failure due to aspiration pneumonia unasyn day 09/08 hypoxia resolved metabolic encephalopathy due to above complicated by hypernatremia improved with hypotonic fluids dispo - if continues to be afebrile and eat enough calories would send back to correction care tomorrow.
[2020-08-16 15:03] VITALS: BP 127/62; PULSE 73; RESP 19; TEMP 37.1; O2SAT 93
[2020-08-16 19:23] VITALS: PULSE 74; RESP 19; TEMP 37.1; O2SAT 98
[2020-08-16 19:40] VITALS: BP 152/95
[2020-08-17] VITALS (7 sets, daily range): BP systolic 108–170; BP diastolic 65–99; PULSE 72–86; RESP 16–20; TEMP 36.7–37.4; O2SAT 92–100
[2020-08-17] MEDS: Ampicillin Sodium/Sulbactam Na 3 GM in 0.9 % Sodium Chloride 100 ML IV ×4 (05:12→22:40)
[2020-08-17] MEDS: Dextrose 5 % and 0.45 % NaCl 1,000 ML 80 ML IVCONT (05:13)
--- NOTE | 2020-08-17 10:21 | MHC.SLORD ---
Speech Language Pathology Order Status: VEIN PUMPER spoke with RN this morning who stated that pt ate breakfast without difficulty. Pt was sleeping when VEIN PUMPER arrived and was not appropriate for PO trials this morning due to level of alertness. VEIN PUMPER will continue to follow as appropriate.
--- NOTE | 2020-08-17 13:37 | PM.PSYCN ---
History of Present Illness Date of Service: 08/17/2020 Chief Complaint: hypernatremia,encephalopathy Reason for Consult: follow up Requesting physician: Yehuda Rodriguez Discussed with referring provider: Yes Sources of Information: patient interviewed and chart reviewed HPI Narrative: Mr. Sharp is a 64 year-old male with hx of dementia and mood disorder who was transferred from SNF due to presenting as obtundent after given dose of Olanzapine for agitation while at SNF. In the ED, pt found to have hypernatremia thought to be secondary to poor oral intake. While in hospital, pt also developed aspiration pneumonia and had acute respiratory failure. Pt has presented mostly as non verbal, does open eyes at times and verbalizes yes or no, unclear if pt fully understands even simple commands. While in hospital, olanzapine was held due over sedation. There was consideration of NMS as pt presented with mild rigidity, temperature of 102. However, pt's WBC was wnl, CPK only mildly elevated at 400. Also, suspected source of fever, tachypnea, elevated lactid acidosis, diaphoresis was aspiration pneumonia as chest x ray also showed small opacities. Today, pt continues to present as minimally responsive, but in no acute distress. He does open his eyes when called by his name but unable to provide any further information. Pt does not appear psychotic. Not combative. Recovering from encephalopathy superimposed on dementia Medical Evaluation Reviewed: Yes Review of Systems Review of Systems Yes Unobtainable due to mental status [facility] Medical History (Updated 08/17/20 @ 13:54 by Teresa Henry) Advanced dementia HTN (hypertension) Diagnostics Vital Signs (24Hr): Vital Signs - 24 hr 08/16/20 15:03 08/16/20 19:23 08/16/20 19:40 Temperature 98.7 F 98.7 F Pulse Rate 73 74 Respiratory Rate 19 19 Blood Pressure 127/62 152/95 H Pulse Oximetry 93 98 08/17/20 00:00 08/17/20 03:23 08/17/20 07:39 Temperature 98.0 F 98.2 F 98.7 F Pulse Rate 75 86 85 Respiratory Rate 18 20 18 Blood Pressure 149/99 H 145/67 H 136/69 Pulse Oximetry 98 96 98 08/17/20 12:00 Temperature 98.5 F Pulse Rate 74 Respiratory Rate 18 Blood Pressure 108/74 Pulse Oximetry 100 Body Mass Index 25.7 Labs Results: 08/16/20 05:50 08/16/20 05:50 Labs: Laboratory Results - last 48 hr 08/16/20 08/16/20 05:50 05:50 WBC 8.1 RBC 4.51 L Hgb 12.4 L Hct 39.1 L MCV 86.7 MCH 27.5 MCHC 31.7 RDW 13.7 Plt Count 266 MPV 9.6 Absolute Nucleated RBC 0.000 Nucleated RBC % (auto) 0.0 Sodium 144 Potassium 3.8 Chloride 112 H Carbon Dioxide 23 Anion Gap 13 BUN 7 L Creatinine 0.66 Estim Creat Clear Calc 125.7 Estimated GFR > 60 Fasting Glucose 86 Calcium 8.0 L Imaging Radiology Impressions: ITS Impressions Head CT 08/04/20 13:38 IMPRESSION: No acute intracranial process seen. There is moderate cerebral volume loss with chronic small vessel microangiopathy. Chest X-Ray 08/07/20 17:33 IMPRESSION: Small ill-defined opacities bilaterally, nonspecific. Assessment is limited by suboptimal patient positioning and hypoventilatory state. Consider repeat views with formal PA and lateral full inspiratory radiographs. Mental Status Exam Mental Status Exam Narrative: Appearance: hospital gown, fair hygiene, in NAD Behavior: somnolent, responds to verbal commands Psychomotor: no agitation or retardation noted Speech: non verbal, minimal spontaneous TP: unable to assess TC: unable to assess Mood:unable to assess Affect:somnolent SI:unable to assess HI:unable to assess AH/VH:does not appear Delusions:none Insight/judgment:impaired x 2 Memory/cog: severely impaired Medications Medications Current Medications Generic Name Dose Route Start Last Admin Trade Name Jose Armando PRN Reason Stop Dose Admin Amlodipine Besylate 2.5 mg 08/05/20 09:00 08/17/20 09:26 Amlodipine Besylate 2.5 Mg Tablet PO Not Given DAILY@0900 [facility] Protocol Aspirin 81 mg 08/05/20 09:00 08/17/20 09:26 Aspirin 81 Mg Tab.Chew PO Not Given DAILY@0900 [facility] Atorvastatin Calcium 10 mg 08/05/20 21:00 08/16/20 20:50 Atorvastatin Calcium 10 Mg Tablet PO Not Given BEDTIME [facility] Divalproex Sodium 750 mg 08/05/20 09:00 08/17/20 09:26 Divalproex Sodium Sprinkles 125 Mg Cap.Dr.Spr PO Not Given DAILY [facility] Divalproex Sodium 1,000 mg 08/05/20 21:00 08/16/20 20:50 Divalproex Sodium Sprinkles 125 Mg Cap. PO Not Given BEDTIME [facility] Docusate Sodium 100 mg 08/05/20 00:34 Docusate Sodium 100 Mg Capsule PO DAILY PRN Constipation Enoxaparin Sodium 40 mg 08/09/20 09:00 08/17/20 09:27 Enoxaparin Sodium 40 Mg/0.4 Ml Syringe SUBCUT Not Given Q24H [facility] Escitalopram Oxalate 20 mg 08/05/20 21:00 08/16/20 20:51 Escitalopram Oxalate 20 Mg Tablet PO Not Given BEDTIME [facility] Famotidine 40 mg 08/05/20 09:00 08/17/20 09:27 Famotidine 20 Mg Tablet PO Not Given DAILY@0900 [facility] Hydralazine HCl 5 mg 08/10/20 17:23 08/10/20 17:59 Hydralazine Hcl 20 Mg/Ml Vial IVPUSH 5 mg Q6H PRN Administration bp>160 Protocol Ampicillin Sodium/Sulbactam 100 mls @ 200 mls/hr 08/10/20 17:30 08/17/20 12:07 Sodium 3 gm/ Sodium Chloride IV Infused Q6H [facility] Infusion Lorazepam 1 mg 08/12/20 14:28 08/13/20 18:02 Lorazepam 2 Mg/Ml Vial IVPUSH 1 mg BID PRN Administration Restlessness, agitation Sodium Chloride 3 ml 08/05/20 00:34 08/17/20 09:27 0.9 % Sodium Chloride Flush 3 Ml Syringe IVFLUSH Not Given QSHIFT [facility] Vitamin D 25 mcg 08/05/20 09:00 08/17/20 09:26 Cholecalciferol (Vitamin D3) 25 Mcg Tablet PO Not Given DAILY [facility] Allergies Allergies Allergy/AdvReac Type Severity Reaction Status Date / Time atenolol Allergy Unknown Verified 08/04/20 13:37 duloxetine [From Cymbalta] Allergy Unknown Verified 08/04/20 13:37 ibuprofen Allergy Unknown Verified 08/04/20 13:37 levofloxacin [From Levaquin] Allergy Unknown Verified 08/04/20 13:37 Assessment & Plan Assessment & Plan (1) Encephalopathy: Status: Acute Code(s): G93.40 - Encephalopathy, unspecified Recommendations: slowly improving but may take several week (2) Advanced dementia: Status: Inactive Code(s): F03.90 - Unspecified dementia without behavioral disturbance Recommendations: Dementia of probably multifactorial etiology, but at least based on Head CT, vascular type with significant atrophy. Pt prone to encelophalopathy and delirium due to dementia. No behavioral disturbances. (3) Mood disorder: Status: Acute Code(s): F39 - Unspecified mood [affective] disorder Recommendations: 1. No need for inpatient psychiatric level of care 2. Hx of mood disorder, treated with depakote, olanzapine and celexa. Currently, no acute symptoms. Current regimen can be revisited OP as pt may need less medication. 3. Also, consider checking free valproic acid levels OP, instead of total valproic levels given low albumin and fact that depakote is highly protein bound. 4. Continue current medications and follow up with OP psychiatric providers. Greater than 50% of the session was spent on counseling and/or coordination of care
[2020-08-17 13:47] LABS: COVID-19 Test Negative (Negative)
--- NOTE | 2020-08-17 16:40 | HO.PM.IMPN ---
Subjective Subjective Date of Service: 08/17/20 Interval History: Looks comfortable, not in distress Nonverbal and did not respond to any questions but was making eye contact and looking around Physical Exam Vital Signs: Vital Signs: Last Vital Signs Temp 98.3 F 08/17/20 15:08 Pulse 72 08/17/20 15:08 Resp 18 08/17/20 15:08 BP 135/65 08/17/20 15:08 Pulse Ox 99 08/17/20 15:08 Body Mass Index 25.7 Const: Other: Constitutional : Alert, unable to assess orientation, not in distress Neck : Normal inspection, Supple Cardiovascular : RRR, S1 S2, no lower extremity edema Respiratory : Good bilateral air entry, no crackles, wheezes or rhonchi Gastrointestinal: soft, lax, Normal bowel sounds, Non tender Skin : Warm/Dry, No rash Neurological : Alert , nonverbal, not interactive, not responding to questions, No focal deficit noticed Objective Data Current Medications Generic Name Dose Route Start Last Admin Trade Name Freq PRN Reason Stop Dose Admin Amlodipine Besylate 2.5 mg 08/05/20 09:00 08/17/20 09:26 Amlodipine Besylate 2.5 Mg Tablet PO Not Given DAILY@0900 [facility] Protocol Aspirin 81 mg 08/05/20 09:00 08/17/20 09:26 Aspirin 81 Mg Tab.Chew PO Not Given DAILY@0900 [facility] Atorvastatin Calcium 10 mg 08/05/20 21:00 08/16/20 20:50 Atorvastatin Calcium 10 Mg Tablet PO Not Given BEDTIME [facility] Divalproex Sodium 750 mg 08/05/20 09:00 08/17/20 09:26 Divalproex Sodium Sprinkles 125 Mg Cap. PO Not Given DAILY [facility] Divalproex Sodium 1,000 mg 08/05/20 21:00 08/16/20 20:50 Divalproex Sodium Sprinkles 125 Mg Cap PO Not Given BEDTIME [facility] Docusate Sodium 100 mg 08/05/20 00:34 Docusate Sodium 100 Mg Capsule PO DAILY PRN Constipation Enoxaparin Sodium 40 mg 08/09/20 09:00 08/17/20 09:27 Enoxaparin Sodium 40 Mg/0.4 Ml Syringe SUBCUT Not Given Q24H [facility] Escitalopram Oxalate 20 mg 08/05/20 21:00 08/16/20 20:51 Escitalopram Oxalate 20 Mg Tablet PO Not Given BEDTIME [facility] Famotidine 40 mg 08/05/20 09:00 08/17/20 09:27 Famotidine 20 Mg Tablet PO Not Given DAILY@0900 [facility] Hydralazine HCl 5 mg 08/10/20 17:23 08/10/20 17:59 Hydralazine Hcl 20 Mg/Ml Vial IVPUSH 5 mg Q6H PRN Administration bp>160 Protocol Ampicillin Sodium/Sulbactam 100 mls @ 200 mls/hr 08/10/20 17:30 08/17/20 12:07 Sodium 3 gm/ Sodium Chloride IV Infused Q6H [facility] Infusion Lorazepam 1 mg 08/12/20 14:28 08/13/20 18:02 Lorazepam 2 Mg/Ml Vial IVPUSH 1 mg BID PRN Administration Restlessness, agitation Sodium Chloride 3 ml 08/05/20 00:34 08/17/20 15:38 0.9 % Sodium Chloride Flush 3 Ml Syringe IVFLUSH Not Given QSHIFT [facility] Vitamin D 25 mcg 08/05/20 09:00 08/17/20 09:26 Cholecalciferol (Vitamin D3) 25 Mcg Tablet PO Not Given DAILY [facility] Labs CBC & Chem 7: 08/16/20 05:50 08/16/20 05:50 Labs: Laboratory Results - last 24 hr 08/17/20 13:24 COVID-19 ([facility]) Negative COVID-19 Clin Com See Note Quality Stroke Does the patient have a stroke diagnosis?: No VTE Prior VTE?: No VTE Risk Level:: Medical - moderate - high VTE Device Contraindication: Treatment Not Indicated VTE Drug Contraindication: N/A - Med Ordered Assessment and Plan (1) Encephalopathy: Status: Acute Assessment and Plan: 64M presented with ams, became febrile, hypoxic, and hypotensive, was sent to ICU, in ICU zyprexa was held, given empiric antibiotics, and hypoxia, hypotension resolved. now on floor patient with perissitent AMS and fevers Fever No fever for the last 4 days NMS felt to be unlikely due to normal CPK continue to hold antipsychotics though much improved mental status, though not back to baseline. Not combative. Accepting more diet Psychiatry input appreciated acute hypoxic respiratory failure due to aspiration pneumonia unasyn day 10/09 hypoxia resolved metabolic encephalopathy due to above complicated by hypernatremia improved with hypotonic fluids dispo - if continues to be afebrile and eat enough calories would send back to emergency medical technician basic care tomorrow.
[2020-08-17] MEDS: 0.9 % Sodium Chloride Flush 3 ML SYRINGE IVFLUSH (22:40)
[2020-08-18 03:29] VITALS: BP 142/78; PULSE 84; RESP 18; TEMP 37; O2SAT 94
[2020-08-18] MEDS: Ampicillin Sodium/Sulbactam Na 3 GM in 0.9 % Sodium Chloride 100 ML IV (04:54)
[2020-08-18 07:37] LABS: Anion Gap 13 (12-20); Blood Urea Nitrogen 7 mg/dL (9-16); Calcium 8.6 mg/dL (8.4-10.2); Carbon Dioxide 23 mmol/L (22-29); Chloride 108 mmol/L (96-108); Creatinine Clr Calc Pharmacy 120.2; Estimated Glomerular Filt Rate > 60; Glucose Random 82 mg/dL (60-115); Potassium 4.3 mmol/L (3.3-5.1); Sodium 140 mmol/L (135-145)
--- NOTE | 2020-08-18 07:58 | MHC.CM.PN ---
This proposal lead writer spoke with Levi Waggoner @ [facility]. Facility had concerns re: G-tube, explained that @ this time patient does not need the g-tube as he is eating. She also expressed concerns regarding patient's behaviors , discussed with Levi that the patient has not had any behaviors, he has been cleared by psych and is medically stable for d/c. Levi stated that if patient has any behaviors they are going to have to send him back, explained to Levi that maybe he patient would need to return to the [facility] if their facility is not the right placement. Continuing to send the patient to the ER would not be an appropriate plan of care. After discussion Levi agreed for patient to return. Patient can return to [facility] this morning.
[2020-08-18 08:00] VITALS: BP 127/74; PULSE 75; RESP 20; TEMP 36.2
[2020-08-18] MEDS: 0.9 % Sodium Chloride Flush 3 ML SYRINGE IVFLUSH (09:16)
[2020-08-18] MEDS: Enoxaparin Sodium 40 MG/0.4 ML SYRINGE SUBCUT (09:16)
--- NOTE | 2020-08-18 10:15 | P.DS_ITS ---
DS: Providers Provider Date of Service: 08/18/20 Date of admission: 08/04/20 21:48 Primary care physician: Unknown Physician Consults: 08/04/20 14:05 Consult to Crisis Stat Reason for consultation: ?david psych Has provider been notified: Yes 08/05/20 00:34 Consult to Nephrology Routine Consulting Provider: [facility] Reason for consultation: hypernatremia Has provider been notified: No 08/05/20 05:25 Consult to Crisis Stat Reason for consultation: psychosis Has provider been notified: No 08/05/20 10:57 Consult to Care Team Routine Comment: Reason for consultation: Patient may require david-psych IPLOC once medically cleared. 08/05/20 11:13 Consult to Nephrology Routine Consulting Provider: Colt Doherty Reason for consultation: hypernatremia 08/05/20 12:28 Consult to Crisis Stat Reason for consultation: psychosis 08/09/20 11:32 Consult to Psychiatry Stat Consulting Provider: Beryl Beverly Reason for consultation: catatonia, ? Parkinson's disease Has provider been notified: No 08/10/20 16:55 Consult to Neurology Routine Consulting Provider: [facility] Reason for consultation: ams, fevers DS: Diagnosis Discharge Diagnosis (1) Encephalopathy: Status: Acute (2) Severe sepsis: Status: Acute (3) Aspiration pneumonia: Status: Acute (4) Acute hypernatremia: Status: Acute DS: Medications Discharge Medications Home Medications: Home Medications Medication Instructions Recorded Confirmed amlodipine 2.5 mg PO DAILY@89908/04/20 08/04/20 aspirin 81 mg PO DAILY@89908/04/20 08/04/20 cholecalciferol (vitamin D3) 25 mcg PO DAILY 08/04/20 08/04/20 divalproex 1,000 mg PO BEDTIME 08/04/20 08/04/20 divalproex [Depakote Sprinkles] 750 mg PO DAILY 08/04/20 08/04/20 escitalopram oxalate 20 mg PO BEDTIME 08/04/20 08/04/20 famotidine 40 mg PO DAILY@89908/04/20 08/04/20 lisinopril 40 mg PO DAILY 08/04/20 08/04/20 olanzapine 5 mg PO DAILY 08/04/20 08/04/20 olanzapine 10 mg PO BEDTIME 08/04/20 08/04/20 simvastatin 20 mg PO BEDTIME 08/04/20 08/04/20 trazodone 100 mg PO BEDTIME 08/04/20 08/04/20 Previous Rx's Medication Instructions Recorded amoxicillin-pot clavulanate 1 tab PO BID #10 tab 08/17/20 [Augmentin] DS: Summary Hospital Course Hospital Course: Admission note HPI This is a 64-year-old male with dementia and hypertension who presents to the hospital from an outside facility with crisis. Patient is completely obtunded after receiving Zyprexa for being completely aggressive and agitated in the ED and therefore history is mostly obtained from ED physician's note. Patient comes from [facility] presents to the hospital for increased agitation, aggression, not able to being managed by the facility staff, refusing medications. It is seems that the facility was unable to manage patient and therefore sent him to the hospital In the hospital patient was also very aggressive, attempting to punch staff, refusing all medical care. He received IM Zyprexa for aggression, Patient was found to have hypernatremia and therefore being admitted to the medical floor. Hospital course The patient was admitted to the hospital for evaluation of agitations. Found to have sodium level of 158 at time of presentation. Admitted to the medical floor for treatment of hypernatremia and dehydration. The next morning the patient was noticed to be tachycardic and hypoxemic with associated elevated temp pressure of 102 and low blood pressure of 80s over 60s. X-ray was consistent with right lower lobe infiltrate suggestive of aspiration pneumonia. He was transferred to the ICU for treatment of severe sepsis with IV antibiotics of Unasyn. He was also noted to have atrial fibrillation with rapid ventricular response which was believed to be in a result of sepsis. Treated with IV Cardizem drip and totally resolved and converted back to sinus rhythm after that with no need for anticoagulation as the patient was monitored for the rest of his hospital stay with no recurrence of the atrial fibrillation. Sodium levels improved back to normal of 140. He was noticed to have some rigidity after using Zyprexa. Evaluated by psychiatry team who did not believe it is in your left take malignant syndrome. Zyprexa was stopped either way. CK came back mildly elevated. Evaluated by Neurology who did not believe it is a neuroleptic malignant syndrome. Patient was monitored off the Zyprexa as he continue to improve. He was able to articulate words but he was difficult to understand. The patient was transferred back to the medical floor after being stabilized and continue treatment with total of 8 days of Unasyn weaning him off the oxygen. Patient was very picky about his meals and eating partially or refuse meals. Had difficulties delivering his medications as well as he off to refused taking them at times. Discussed with his healthcare proxy about possibility of plac ement of feeding tube but she felt it is not the right time to do it. We agreed giving the patient a chance of recovery at his facility. Discharge plan The patient will need to drink between 1.5-2 L of water every day Continue home medications, to be reviewed by his own psychiatrist for any adjustments Continue Augmentin for 5 more days Time Spent with Patient Time attestation: Total time spent providing and/or coordinating discharge services: Discharge coordination time: Greater than 30 minutes Quality: Stroke Does the patient have a stroke diagnosis?: No Physical Exam Vital Signs: Vital Signs: Last Vital Signs Temp 97.1 F 08/18/20 08:00 Pulse 75 08/18/20 08:00 Resp 20 08/18/20 08:00 BP 127/74 08/18/20 08:00 Pulse Ox 94 08/18/20 03:29 Body Mass Index 25.7 Const: Other: Constitutional : Alert, disoriented, not in distress Neck : Normal inspection, Supple Cardiovascular : RRR, S1 S2, no lower extremity edema Respiratory : Good bilateral air entry, no crackles, wheezes or rhonchi Gastrointestinal: soft, lax, Normal bowel sounds, Non tender Skin : Warm/Dry, No rash Neurological : Alert , nonverbal, not interactive, not responding to questions, No focal deficit noticed DS: Data Data Completed and Pending Labs on day of discharge: Laboratory Results - last 24 hr 08/17/20 08/18/20 13:24 06:01 Sodium 140 Potassium 4.3 Chloride 108 Carbon Dioxide 23 Anion Gap 13 BUN 7 L Creatinine 0.69 Estim Creat Clear Calc 120.2 Estimated GFR > 60 Random Glucose 82 Calcium 8.6 D COVID-19 (MARBELLA) Negative COVID-19 Clin Com See Note Discharge Plan Discharge Patient Disposition: [facility] Discharge Diagnosis: Aspiration pneumonia Metabolic encephalopathy Hypernatremia Referrals: [facility] [Other] - 1 Week Physician,Unknown [Primary Care Provider] - 1 Week Discharge Medications: New amoxicillin-pot clavulanate [Augmentin] 875-125 mg tablet 1 tab PO BID Qty: 10 RF: 0 Continued famotidine 40 mg Tablet 40 mg PO DAILY@0900 RF: 0 olanzapine 5 mg Tablet 5 mg PO DAILY RF: 0 olanzapine 10 mg Tablet 10 mg PO BEDTIME RF: 0 amlodipine 2.5 mg Tablet 2.5 mg PO DAILY@0900 RF: 0 trazodone 100 mg Tablet 100 mg PO BEDTIME RF: 0 simvastatin 20 mg Tablet 20 mg PO BEDTIME RF: 0 aspirin 81 mg Tablet,Chewable 81 mg PO DAILY@0900 RF: 0 lisinopril 40 mg Tablet 40 mg PO DAILY RF: 0 divalproex [Depakote Sprinkles] 125 mg Capsule, Delayed Rel Sprinkle 750 mg PO DAILY RF: 0 divalproex 125 mg Capsule, Delayed Rel Sprinkle 1,000 mg PO BEDTIME RF: 0 escitalopram oxalate 20 mg Tablet 20 mg PO BEDTIME RF: 0 cholecalciferol (vitamin D3) 25 mcg (1,000 unit) Tablet 25 mcg PO DAILY RF: 0 Discharge Orders: Discharge Order (Routine); Ordered 08/18/20 Ordered By: Yehuda Rodriguez Diet: advance to usual diet Activity on Discharge: As tolerated Stand Alone Forms: Patient Portal Discharge page Care Plan Goals: Read below Health Concerns: Read below Plan of Treatment: You were admitted to the hospital for evaluation of altered mentation. Found to elevated sodium level which was treated with good response over few days in the hospital. You were noted to spike fever with chest x-ray concerning for possible pneumonia. Treated with IV antibiotics with good response. Assessment: Drink plenty of water 1.5-2 L daily Continue home medications Continue Augmentin for 5 more days
--- NOTE | 2020-08-18 10:19 | MHC.CM.PN ---
Patient has been medically cleared for dc to SNF/LTC today. Patient will return to [facility] today at 11 AM, via [facility]. MARQUEZ spoke with Sister/Guardian/Michael at [phone], who is aware of and in agreement with the dc plan.Second IMM addressed with Michael and will be mailed certified letter to her (original) and a copy will be placed on the chart.
--- NOTE | 2020-08-18 11:24 | MHC.SL.SWA ---
Speech Pathologist Impression: Risk of Aspiration Oralpharyngeal Dysphagia Risk of Aspiration Due to: History of Pneumonia Poor PO Intake Reduced Cognition Dysphasia Diet Status: Upgrade Liquid Consistency and Strategies for Safe Swallow: Liquid Intake Recommendation: Thin Liquid Intake Strategies: Small Sips Solid Food Consistency: Dietary Recommendations: Pureed (NDD1) Oral Medication Intake: Crushed with Puree Compensatory Strategies and Precautions to be Taken for Safe Swallow: Sitting Upright (90 deg) Liquids from Cup Small Bites and Sips Alternate Liquids/Solids Rate of Ingestion Change Supervision While Eating and Drinking for Safe Swallow: Total Assistance Foods to Avoid: Avoid tough/dry/sticky foods. Swallowing Recommended Treatments: Compens. Strategy Educat. Recommendation for Speech: Inpatient Speech Therapy Comment: TRANSITIONAL LIVING SPECIALIST to continue to follow during hospitalization. Textile Cutting Machine Operator Clinican/Clinical Fellow: No Supervisory Statement: I have reviewed and agree with the student/clinical fellow's documentation: N/A Speech Language Pathologist: Vijaya Arteaga M.A., CCC-TRANSITIONAL LIVING SPECIALIST
== END 2020-08-18 11:08 | disposition skilled nursing facility (03) | DRG 640 ==
LOC: HO.ED 15:58 → HO.EDOVER 22:32 → HO.S3 22:36 → HO.IMC 08-07 19:03 → HO.ICU 08-07 19:54 → HO.IMC 08-10 13:38
PROVIDERS: Anesthesiology; Internal Medicine; Internal Medicine Pulmonary Disease; Physician Assistant Medical; Admitting Provider Internal Medicine; Emergency Provider Emergency Medicine; Visit Provider Student in an Organized Health Care Education/Training Program
DX: E87.0 Hyperosmolality and hypernatremia (principal); A41.9 Sepsis, unspecified organism; J69.0 Pneumonitis due to inhalation of food and vomit; R65.21 Severe sepsis with septic shock; J96.01 Acute respiratory failure with hypoxia; G93.41 Metabolic encephalopathy; F03.91 Unspecified dementia, unspecified severity, with behavioral disturbance; F05 Delirium due to known physiological condition; N17.9 Acute kidney failure, unspecified; I48.91 Unspecified atrial fibrillation; I10 Essential (primary) hypertension; E78.5 Hyperlipidemia, unspecified; E86.0 Dehydration; F39 Unspecified mood [affective] disorder; I95.9 Hypotension, unspecified; Z91.14 Patient's other noncompliance with medication regimen; Z20.822 Contact with and (suspected) exposure to COVID-19; Z88.6 Allergy status to analgesic agent; Z79.82 Long term (current) use of aspirin; Z79.899 Other long term (current) drug therapy
CPT/HCPCS: 36415; 36600; 70450; 71045; 80048; 80076; 80164; 81001; 81003; 82040; 82140; 82436; 82550; 82947; 83605; 83690; 83735; 83935; 84100; 84133; 84300; 84484; 85025; 85027; 85610; 85730; 86850; 86900; 86901; 87040; 87635; 92610; 93005; 93306; 99223; 99285; J0295; J1650; J2060; J2550

== ENCOUNTER 2020-08-30 16:58 | Inpatient (IN) | payer OTHER, MEDICAID, SELFPAY ==
[2020-08-30] VITALS (15 sets, daily range): BP systolic 80–149; BP diastolic 39–91; PULSE 74–125; RESP 18–58; TEMP 37.5–39.1; O2SAT 87–100; BMI 21.5
--- NOTE | ~2020-08-30 | XR_ITS ---
EXAMINATION: XR CHEST CLINICAL INFORMATION: Confirm orogastric tube placement COMPARISON: Previous chest x-ray from yesterday TECHNIQUE: Frontal view of the chest was obtained. FINDINGS: There is a new orogastric tube that projects over the stomach. The tip is not seen. There is an endotracheal tube with tip 5 cm above the nate. There is a right jugular line with tip projecting over the SVC. The cardiac and mediastinal contours are stable. There is increased attenuation at the lung bases questionable for pneumonia. There is no pleural effusion or pneumothorax. There are degenerative changes of the spine. XR/XR chest 1V IMPRESSION: Orogastric tube projects over stomach. The tip is not seen. Satisfactory position of endotracheal tube and right jugular line.
--- NOTE | ~2020-08-30 | CT_ITS ---
EXAMINATION: CT HEAD WITHOUT CONTRAST CLINICAL INFORMATION: Mental status change COMPARISON: Previous head CT 08/04/2020 TECHNIQUE: Contiguous axial imaging was performed from the skull base to vertex without intravenous administration of contrast. This CT examination was performed using dose optimization techniques as appropriate, variously including the following: *Automated exposure control *Adjustment of mA and/or kV according to patient size (this includes techniques or standardized protocols for targeted exams where dose is matched to indication/reason for exam; i.e. extremities or head) *Use of iterative reconstruction technique DLP: 852 mGy-cm FINDINGS: There is no evidence of an extra-axial collection. There is no evidence of intra-axial or extra-axial hemorrhage. The ventricles and extra-axial CSF spaces are prominent suggestive of mild generalized atrophy. There is nonspecific periventricular white matter disease. No mass, mass effect or infarct is seen. There is atherosclerotic disease. Visualized paranasal sinuses, mastoid air cells and middle ears are clear. No skull fracture is seen. CT/CT head/brain wo con IMPRESSION: No acute findings. Generalized atrophy and nonspecific periventricular white matter disease similar to previous exam.
--- NOTE | ~2020-08-30 | CT_ITS ---
EXAMINATION: CT ABDOMEN AND PELVIS WITHOUT CONTRAST CLINICAL INFORMATION: Sepsis. Question intra-abdominal pathology. COMPARISON: None TECHNIQUE: Multidetector volumetric imaging was performed from the superior aspect of the liver through the pubic symphysis. Sagittal and coronal reformatted images were obtained on the technologist's workstation. This CT examination was performed using dose optimization techniques as appropriate, variously including the following: *Automated exposure control *Adjustment of mA and/or kV according to patient size (this includes techniques or standardized protocols for targeted exams where dose is matched to indication/reason for exam; i.e. extremities or head) *Use of iterative reconstruction technique DLP: 936 mGy-cm FINDINGS: LUNG BASES: There is bilateral lower lobe pneumonia, left greater than right. LIVER, GALLBLADDER, AND BILIARY TREE: The liver is normal in size, shape, and attenuation. No focal hepatic lesion or biliary ductal dilatation is present. The gallbladder is upper normal in size. No gallstones are seen. PANCREAS: Unremarkable. SPLEEN: Unremarkable. ADRENAL GLANDS: Unremarkable. KIDNEYS AND URETERS: The kidneys are normal in size, shape, and attenuation. No hydronephrosis, hydroureter, or calculi seen. No perinephric stranding. BLADDER: Unremarkable. GASTROINTESTINAL TRACT: There is a 2.0 in the rectum. There is stool throughout the colon suggestive of constipation. There is no evidence of obstruction. Small and large bowel is otherwise unremarkable. The appendix is not seen. ABDOMINAL WALL: No significant hernia is appreciated. LYMPH NODES: Normal. VASCULAR: There is evidence of atherosclerotic disease. PELVIC VISCERA: Unremarkable. OSSEOUS STRUCTURES: There is a right hip replacement. There are degenerative changes of the spine. CT/CT abdomen pelvis wo con IMPRESSION: Bilateral lower lobe pneumonia, left greater than right. Stool throughout the colon suggestive of constipation. Small tube coiled in the rectum.
--- NOTE | ~2020-08-30 | XR_ITS ---
EXAMINATION: XR CHEST CLINICAL INFORMATION: SOB. COMPARISON: Chest 08/07/2020 TECHNIQUE: Frontal view of the chest was obtained. FINDINGS: The lungs are well inflated but clear of acute process. The heart size and pulmonary vascularity is normal. There is a right jugular central catheter with its tip in mid SVC. Tip of endotracheal tube is 5 cm above the nate. Mild spondylosis of dorsal spine. XR/XR chest 1V IMPRESSION: New right jugular central catheter in mid SVC. Tip of endotracheal tube is 5 cm above the nate. The lungs are clear.
--- NOTE | ~2020-08-30 | US_ITS ---
EXAMINATION: US VENOUS ULTRASOUND WITH DOPPLER LOWER EXTREMITY, BILATERAL CLINICAL INFORMATION: Respiratory failure. Very elevated d-dimer. COMPARISON: None TECHNIQUE: Ultrasound of the deep veins is performed from the hip to the calf with compression sonography and color and pulse Doppler assessment. Spectral analysis with color-flow imaging is performed. FINDINGS: RIGHT: There is normal venous compression and respiratory variation and augmented flow. The visualized common femoral vein, superficial femoral vein, profunda femoral vein, popliteal vein, and the trifurcation region shows no evidence of deep venous thrombosis. There is no popliteal fossa cyst. LEFT: The left common femoral vein is patent. There is thrombus seen in the left superficial femoral, popliteal posterior tibial veins. The peroneal veins are not well visualized. There is no popliteal fossa cyst. US/US venous duplex LE BI IMPRESSION: Left leg DVT involving the left superficial femoral, popliteal and posterior tibial veins. No right leg DVT. Findings were communicated to Dr. Becker by the medical technologist prn at the completion of the exam on 09/01/2020 at 3:30 PM.
--- NOTE | ~2020-08-30 | XR_ITS ---
EXAMINATION: XR CHEST CLINICAL INFORMATION: check tube place hypoxia COMPARISON: 08/30/2020 TECHNIQUE: Frontal view of the chest was obtained. FINDINGS: ET tube tip terminates 4 cm from the nate. Enteric tube extends into the stomach and off of the inferior border of the study. Right IJ central venous catheter tip terminates near the cavoatrial junction. Lung volumes are normal. No consolidation, pneumothorax, or pleural effusion. Cardiac and mediastinal contours are normal. Pulmonary vasculature is unremarkable. No acute osseous findings. XR/XR chest 1V IMPRESSION: ET tube terminates 4 cm from the nate. Clear lungs.
--- NOTE | ~2020-08-30 | CT_ITS ---
EXAMINATION: CT HEAD WITHOUT CONTRAST CLINICAL INFORMATION: Suspected stroke. COMPARISON: CT of the head done on 08/30/2020. TECHNIQUE: Contiguous axial imaging was performed from the skull base to vertex without intravenous administration of contrast. This CT examination was performed using dose optimization techniques as appropriate, variously including the following: *Automated exposure control *Adjustment of mA and/or kV according to patient size (this includes techniques or standardized protocols for targeted exams where dose is matched to indication/reason for exam; i.e. extremities or head) *Use of iterative reconstruction technique DLP: 873.1 mGy-cm FINDINGS: There is no evidence of acute intracranial hemorrhage or territorial infarction. No abnormal mass effect or midline shift is seen. Perez to white matter differentiation is well preserved. No extra-axial fluid collections are identified. The ventricles are normal in size. Mild diffuse prominent extra-axial space and mild chronic microvascular department ischemic changes are present, unchanged. The osseous structures and soft tissues are normal. The mastoid air cells and visualized portions of the paranasal sinuses are well aerated. CT/CT head/brain wo con IMPRESSION: No acute intracranial pathology. No significant change since 08/30/2020.
--- NOTE | ~2020-08-30 | CT_ITS ---
EXAMINATION: CT CHEST WITHOUT CONTRAST CLINICAL INFORMATION: Rule out pneumonia COMPARISON: Previous chest x-rays most recent earlier the same day and CT of the pelvis from yesterday TECHNIQUE: Multidetector volumetric CT imaging of the chest was done. Axial MIP volume rendering provided. Sagittal and coronal reformatted images were obtained. This CT examination was performed using dose optimization techniques as appropriate, variously including the following: *Automated exposure control *Adjustment of mA and/or kV according to patient size (this includes techniques or standardized protocols for targeted exams where dose is matched to indication/reason for exam; i.e. extremities or head) *Use of iterative reconstruction technique DLP: 239 mGy-cm FINDINGS: DIRECT CHILL CASTER: LUNGS: There are bilateral central peribronchial nodular opacities, predominantly in the lower lobes. There is denser consolidation with air bronchograms seen at the lung bases in the lower lobes, left greater than right. Appearance is suggestive of bronchopneumonia. There is an endotracheal tube with tip 3.5 cm above the nate. There may be a small right tracheal diverticulum axial image 9 series 3. MEDIASTINUM: There is mild coronary artery calcification. There is a nasogastric tube in the stomach. There is a right jugular line with tip projecting over the SVC. The mediastinum is otherwise normal. PLEURA: There is no pleural effusion. No pleural mass or thickening. AXILLA: No lymphadenopathy. UPPER ABDOMEN: Unremarkable. OSSEOUS STRUCTURES: There are degenerative changes of the spine. CT/CT chest wo con IMPRESSION: Bronchopneumonia, greatest in the lower lobes, left greater than right. Satisfactory position of support line and tubes.
--- NOTE | 2020-08-30 17:21 | ECG_ITS ---
Test Reason : AMS Blood Pressure : / mmHG Vent. Rate : 117 BPM Atrial Rate : 117 BPM P-R Int : 150 ms QRS Dur : 080 ms QT Int : 342 ms P-R-T Axes : 072 265 062 degrees QTc Int : 477 ms Sinus tachycardia Right atrial enlargement Right superior axis deviation Pulmonary disease pattern Abnormal ECG When compared with ECG of 07-AUG-2020 17:19, Sinus rhythm has replaced Atrial fibrillation Referred By: Esha Hopson Electronically Signed By:GARCIA WALL MD
[2020-08-30 17:24] LABS: Glucose, Whole Blood 117 mg/dL (60-115)
--- NOTE | 2020-08-30 17:38 | PC.NURSE ---
CALL TO [facility] REGARDING CODE STATUS. NO MOLST FORM ON FILE AT THEIR FACILITY. FULL CODE STATUS WAS CONFIRMED WITH PAPER BAG MAKER BRIGIDA. ED STAFF HAS ALSO PLACE A CALL TO PTS GUARDIAN NEHEMIAS BHATT LM.
[2020-08-30] MEDS: Midazolam HCl/NS 50 MG/50 ML PLAST..BAG IVCONT (17:40)
[2020-08-30] MEDS: Etomidate 20 MG/10 ML VIAL IVPUSH (18:01)
[2020-08-30] MEDS: 0.9 % Sodium Chloride 3,000 ML 999 ML IVCONT (18:01)
[2020-08-30] MEDS: Rocuronium Bromide 50 MG/5 ML VIAL 80 MG IVPUSH (18:01)
--- NOTE | 2020-08-30 18:11 | ED.GENADULT ---
HPI - General Adult General Chief complaint: Upper Respiratory Symptoms Stated complaint: AMS,HYPOTENSIVE Time Seen by Provider: 08/30/20 17:12 Source: EMS Mode of arrival: EMS Limitations: altered mental status History of Present Illness HPI narrative: patient is brought to the emergency room by EMS from a detention facility. According to the staff at the detention facility, patient is altered, barely responsive, found to be hypoxic and hypotensive. when patient arrived, patient is obtunded, respiratory rate 68, oxygen saturation 90-91% on 15 L, blood pressure 80/39, heart rate 125, and a fever of 102.3. patient is unable to protect his airway, patient was intubated on arrival to the ED Related Data Home Medications Medication Instructions Recorded Confirmed amlodipine 2.5 mg PO DAILY@89908/04/20 08/30/20 aspirin 81 mg PO DAILY@89908/04/20 08/30/20 cholecalciferol (vitamin D3) 25 mcg PO DAILY 08/04/20 08/30/20 divalproex 1,000 mg PO BEDTIME 08/04/20 08/30/20 divalproex [Depakote Sprinkles] 750 mg PO DAILY 08/04/20 08/30/20 escitalopram oxalate 20 mg PO BEDTIME 08/04/20 08/30/20 famotidine 40 mg PO DAILY@89908/04/20 08/30/20 lisinopril 40 mg PO DAILY 08/04/20 08/30/20 olanzapine 5 mg PO DAILY 08/04/20 08/30/20 olanzapine 10 mg PO BEDTIME 08/04/20 08/30/20 simvastatin 20 mg PO BEDTIME 08/04/20 08/30/20 trazodone 100 mg PO BEDTIME 08/04/20 08/30/20 olanzapine [Zyprexa] 10 mg IM BEDTIME PRN 08/30/20 08/30/20 Allergies Allergy/AdvReac Type Severity Reaction Status Date / Time atenolol Allergy Unknown Verified 08/04/20 13:37 duloxetine [From Cymbalta] Allergy Unknown Verified 08/04/20 13:37 ibuprofen Allergy Unknown Verified 08/04/20 13:37 levofloxacin [From Levaquin] Allergy Unknown Verified 08/04/20 13:37 Review of Systems Review of Systems: Yes Unobtainable due to mental condition [facility] Past Medical History Medical History Advanced dementia Afib Dementia HTN (hypertension) Mood disorder Social History Social History Household Members: None Housing: Skilled Nursing Do you presently have visiting nurse or other home services: No Unable to assess alcohol history related to: Unable to respond Patient Tobacco Use Status: Tobacco use Unknown Advance Directives: Yes Advance Directives on File: Yes Advance Directives Date on File: 08/05/20 Physical Exam Vital Signs: Vital Signs: Last Vital Signs Temp 101.3 F H 08/30/20 19:26 Pulse 111 H 08/30/20 19:43 Resp 25 H 08/30/20 19:43 BP 117/84 08/30/20 19:43 Pulse Ox 92 08/30/20 19:43 Body Mass Index 21.5 Appearance: obtunded, unresponsive, ill-appearing Eyes: pinpoint pupils, minimally responsive to light ENT: dry mucosal membranes Neck: Normal inspection. Neck supple. No lymph nodes noted. No crepitus CVS: tachycardic, pulses barely palpable,Normal S1 and S2 Respiratory: respiratory rate 68, fast shallow breath Abdomen: Soft No distention. good BS x4 Skin: Skin warm , seems dehydrated Extremities: No lower extremity edema. Neuro: unresponsive Course Course Course Narrative: before the patient was intubated, we attempted reaching the patient's healthcare proxy, we did not get any response. We called the patient's short-term rehab, ask for MOLDS form, they did not have a form available. Patient was discharged from this facility on the , we attempted looking for the advanced directives, nothing was found on file. Therefore, at this time patient is being treated as full code. patient was intubated, he received 3 L of normal saline and was started on Levophed. Patient also received 1 dose of Zosyn. Central line was also placed. before we got the labs back, patient received 3 L of normal saline. There was a delay in labs returned, patient's sodium is 165. I discussed the above-mentioned with Dr. Becker. patient is being admitted to the intensive care unit. we attempted passing a Escalante catheter and a coude, however we were unable to pass it. Patient now has urine collection bag, once we obtain urine, we will send to the lab. It is likely patient has a UTI Procedures Central Line Placement Right IJ: Time Out Performed: Yes Patient Placed on Monitor/Pulse Ox: Yes MD Prep: mask, gown and gloves Central Line Prep: Chlorhexidine scrub Ultrasound Used for Placement: Yes Central Line Lumen Inserted: triple Post Procedure: sutured in place, good blood return, all ports aspirated, flushed, capped and sterile dressing applied Post Procedure X-Ray: tip of catheter in good position and no pneumothorax seen Patient Tolerated Procedure: well Complications: none Intubation Time out performed: Yes sedative: Etomidate Mg Given: 20 paralytic: Rocuronium Mg Given: 80 Laryngoscope: other (GlideScope) ET Tube Size: 8 ET Tube Uncuffed: No Tube Secured Depth (cm): 24 Tube Secured Location: lips Tube Placement Confirmation: visualized tube passing through cords, equal breath sounds bilaterally, no breath sounds over epigastrium and confirmation by capnometry Patient Tolerated Procedure: well Intubation Complications: none Medical Decision Making Lab Data Result diagrams: 08/30/20 18:27 08/30/20 18:26 Labs: Lab Results 08/30/20 08/30/20 08/30/20 Range/Units 17:20 18:24 18:25 WBC (4.8-10.8) X10*3/uL RBC (4.60-5.80) X10*6/uL Hgb (14.0-18.0) g/dl Hct (42-52) % MCV (80-98) fL MCH (27.0-33.0) pg MCHC (31.0-36.0) g/dl RDW (11.0-16.0) % Plt Count (160-400) X10*3/uL MPV (9.4-12.4) fL Immature Gran % (Auto) (0.0-0.4) % Neut % (Auto) (45-73) % Lymph % (Auto) (20-40) % Bowman % (Auto) (2-11) % Eos % (Auto) (0-4) % Baso % (Auto) (0-2) % Lymph # (Auto) (1.2-4.9) X10*3/uL Bowman # (Auto) (0.1-1.2) X10*3/uL Eos # (Auto) (0.0-0.4) X10*3/uL Baso # (Auto) (0.0-0.2) X10*3/uL Abs Immat Gran (auto) (0.00-0.03) X10*3/uL Absolute Neuts (auto) (2.0-8.3) X10*3/uL Absolute Nucleated RBC (0.0-0.012) X10*3/uL Nucleated RBC % (auto) (0.0-0.2) /100WBC PT (10.8-13.0) SEC INR (0.9-1.1) VBG pH (7.32-7.43) VBG pCO2 mmHg VBG pO2 mmHg VBG HCO3 (22-26) mmol/L VBG O2 Saturation % VBG Base Excess mmol/L Sodium (135-145) mmol/L Potassium (3.3-5.1) mmol/L Chloride (96-108) mmol/L Carbon Dioxide (22-29) mmol/L Anion Gap (12-20) BUN (9-16) mg/dL Creatinine (0.5-1.4) mg/dL Estim Creat Clear Calc Estimated GFR POC Glucose 117 H (60-115) mg/dL Random Glucose (60-115) mg/dL Lactic Acid (0.5-2.0) mmol/L Calcium (8.4-10.2) mg/dL Magnesium 2.7 H (1.6-2.6) mg/dL Total Bilirubin (0.0-1.0) mg/dL Direct Bilirubin (0.0-0.5) mg/dL AST (5-37) U/L ALT (0-40) U/L Alkaline Phosphatase (39-117) U/L Troponin I High Sens (<3.5-35.0) ng/L B-Natriuretic Peptide (<100) pg/mL Total Protein (6.5-8.0) g/dL Albumin (3.5-5.0) g/dL Lipase 76 (8-78) U/L TSH 0.86 (0.32-4.0) uIU/mL Ethyl Alcohol < 10 mg/dL 08/30/20 08/30/2021 Range/Units 18:25 18:26 18:26 WBC (4.8-10.8) X10*3/uL RBC (4.60-5.80) X10*6/uL Hgb (14.0-18.0) g/dl Hct (42-52) % MCV (80-98) fL MCH (27.0-33.0) pg MCHC (31.0-36.0) g/dl RDW (11.0-16.0) % Plt Count (160-400) X10*3/uL MPV (9.4-12.4) fL Immature Gran % (Auto) (0.0-0.4) % Neut % (Auto) (45-73) % Lymph % (Auto) (20-40) % Bowman % (Auto) (2-11) % Eos % (Auto) (0-4) % Baso % (Auto) (0-2) % Lymph # (Auto) (1.2-4.9) X10*3/uL Bowman # (Auto) (0.1-1.2) X10*3/uL Eos # (Auto) (0.0-0.4) X10*3/uL Baso # (Auto) (0.0-0.2) X10*3/uL Abs Immat Gran (auto) (0.00-0.03) X10*3/uL Absolute Neuts (auto) (2.0-8.3) X10*3/uL Absolute Nucleated RBC (0.0-0.012) X10*3/uL Nucleated RBC % (auto) (0.0-0.2) /100WBC PT (10.8-13.0) SEC INR (0.9-1.1) VBG pH (7.32-7.43) VBG pCO2 mmHg VBG pO2 mmHg VBG HCO3 (22-26) mmol/L VBG O2 Saturation % VBG Base Excess mmol/L Sodium 166 H* (135-145) mmol/L Potassium 4.2 (3.3-5.1) mmol/L Chloride 128 H (96-108) mmol/L Carbon Dioxide 26 (22-29) mmol/L Anion Gap 16 (12-20) BUN 64 H D (9-16) mg/dL Creatinine 1.94 H (0.5-1.4) mg/dL Estim Creat Clear Calc 40.7 Estimated GFR 35 POC Glucose (60-115) mg/dL Random Glucose 124 H D (60-115) mg/dL Lactic Acid (0.5-2.0) mmol/L Calcium 9.0 (8.4-10.2) mg/dL Magnesium (1.6-2.6) mg/dL Total Bilirubin 0.8 (0.0-1.0) mg/dL Direct Bilirubin 0.5 (0.0-0.5) mg/dL AST 31 D (5-37) U/L ALT 15 (0-40) U/L Alkaline Phosphatase 92 D (39-117) U/L Troponin I High Sens 30.7 D (<3.5-35.0) ng/L B-Natriuretic Peptide 21 (<100) pg/mL Total Protein 7.4 (6.5-8.0) g/dL Albumin 3.2 L (3.5-5.0) g/dL Lipase (8-78) U/L TSH (0.32-4.0) uIU/mL Ethyl Alcohol mg/dL 08/30/20 08/30/20 08/30/20 Range/Units 18:26 18:26 18:27 WBC 12.3 H (4.8-10.8) X10*3/uL RBC 5.02 (4.60-5.80) X10*6/uL Hgb 14.1 (14.0-18.0) g/dl Hct 46.5 (42-52) % MCV 92.6 (80-98) fL MCH 28.1 (27.0-33.0) pg MCHC 30.3 L (31.0-36.0) g/dl RDW 14.2 (11.0-16.0) % Plt Count 205 (160-400) X10*3/uL MPV 10.2 (9.4-12.4) fL Immature Gran % (Auto) 0.2 (0.0-0.4) % Neut % (Auto) 83.7 H (45-73) % Lymph % (Auto) 7.1 L (20-40) % Bowman % (Auto) 8.8 (2-11) % Eos % (Auto) 0.0 (0-4) % Baso % (Auto) 0.2 (0-2) % Lymph # (Auto) 0.9 L (1.2-4.9) X10*3/uL Bowman # (Auto) 1.1 (0.1-1.2) X10*3/uL Eos # (Auto) 0.0 (0.0-0.4) X10*3/uL Baso # (Auto) 0.0 (0.0-0.2) X10*3/uL Abs Immat Gran (auto) 0.03 (0.00-0.03) X10*3/uL Absolute Neuts (auto) 10.3 H (2.0-8.3) X10*3/uL Absolute Nucleated RBC 0.000 (0.0-0.012) X10*3/uL Nucleated RBC % (auto) 0.0 (0.0-0.2) /100WBC PT 21.9 H D (10.8-13.0) SEC INR 1.8 H (0.9-1.1) VBG pH (7.32-7.43) VBG pCO2 mmHg VBG pO2 mmHg VBG HCO3 (22-26) mmol/L VBG O2 Saturation % VBG Base Excess mmol/L Sodium (135-145) mmol/L Potassium (3.3-5.1) mmol/L Chloride (96-108) mmol/L Carbon Dioxide (22-29) mmol/L Anion Gap (12-20) BUN (9-16) mg/dL Creatinine (0.5-1.4) mg/dL Estim Creat Clear Calc Estimated GFR POC Glucose (60-115) mg/dL Random Glucose (60-115) mg/dL Lactic Acid 1.9 (0.5-2.0) mmol/L Calcium (8.4-10.2) mg/dL Magnesium (1.6-2.6) mg/dL Total Bilirubin (0.0-1.0) mg/dL Direct Bilirubin (0.0-0.5) mg/dL AST (5-37) U/L ALT (0-40) U/L Alkaline Phosphatase (39-117) U/L Troponin I High Sens (<3.5-35.0) ng/L B-Natriuretic Peptide (<100) pg/mL Total Protein (6.5-8.0) g/dL Albumin (3.5-5.0) g/dL Lipase (8-78) U/L TSH (0.32-4.0) uIU/mL Ethyl Alcohol mg/dL 08/30/20 Range/Units 18:30 WBC (4.8-10.8) X10*3/uL RBC (4.60-5.80) X10*6/uL Hgb (14.0-18.0) g/dl Hct (42-52) % MCV (80-98) fL MCH (27.0-33.0) pg MCHC (31.0-36.0) g/dl RDW (11.0-16.0) % Plt Count (160-400) X10*3/uL MPV (9.4-12.4) fL Immature Gran % (Auto) (0.0-0.4) % Neut % (Auto) (45-73) % Lymph % (Auto) (20-40) % Bowman % (Auto) (2-11) % Eos % (Auto) (0-4) % Baso % (Auto) (0-2) % Lymph # (Auto) (1.2-4.9) X10*3/uL Bowman # (Auto) (0.1-1.2) X10*3/uL Eos # (Auto) (0.0-0.4) X10*3/uL Baso # (Auto) (0.0-0.2) X10*3/uL Abs Immat Gran (auto) (0.00-0.03) X10*3/uL Absolute Neuts (auto) (2.0-8.3) X10*3/uL Absolute Nucleated RBC (0.0-0.012) X10*3/uL Nucleated RBC % (auto) (0.0-0.2) /100WBC PT (10.8-13.0) SEC INR (0.9-1.1) VBG pH 7.33 (7.32-7.43) VBG pCO2 53 mmHg VBG pO2 99 mmHg VBG HCO3 28 H (22-26) mmol/L VBG O2 Saturation 96.0 % VBG Base Excess 1.5 mmol/L Sodium (135-145) mmol/L Potassium (3.3-5.1) mmol/L Chloride (96-108) mmol/L Carbon Dioxide (22-29) mmol/L Anion Gap (12-20) BUN (9-16) mg/dL Creatinine (0.5-1.4) mg/dL Estim Creat Clear Calc Estimated GFR POC Glucose (60-115) mg/dL Random Glucose (60-115) mg/dL Lactic Acid (0.5-2.0) mmol/L Calcium (8.4-10.2) mg/dL Magnesium (1.6-2.6) mg/dL Total Bilirubin (0.0-1.0) mg/dL Direct Bilirubin (0.0-0.5) mg/dL AST (5-37) U/L ALT (0-40) U/L Alkaline Phosphatase (39-117) U/L Troponin I High Sens (<3.5-35.0) ng/L B-Natriuretic Peptide (<100) pg/mL Total Protein (6.5-8.0) g/dL Albumin (3.5-5.0) g/dL Lipase (8-78) U/L TSH (0.32-4.0) uIU/mL Ethyl Alcohol mg/dL Imaging Data Chest x-ray: Radiologist's impression: FINDINGS: The lungs are well inflated but clear of acute process. The heart size and pulmonary vascularity is normal. There is a right jugular central catheter with its tip in mid SVC. Tip of endotracheal tube is 5 cm above the nate. Mild spondylosis of dorsal spine. XR/XR chest 1V IMPRESSION: New right jugular central catheter in mid SVC. Tip of endotracheal tube is 5 cm above the nate. The lungs are clear. ECG Data Attestation: I personally reviewed and interpreted this ECG as follows: ( Sinus tachycardia, heart rate 117, no ST segment depression or elevation, no T-wave inversion) Critical Care Time Critical Care Time Total Critical Care Time: 120 Discharge Plan Discharge Clinical Impression: Severe sepsis, Hypernatremia Patient Disposition: Admitted As Inpatient
[2020-08-30 18:32] LABS: MANUAL DIFF FLAG NO
[2020-08-30 18:35] LABS: Basophils Percent Auto 0.2 % (0-2); Hematocrit 46.5 % (42-52); Hemoglobin 14.1 g/dl (14.0-18.0); Imm Gran Abs Auto 0.03 X10*3/uL (0.00-0.03); Imm Gran Pct Auto 0.2 % (0.0-0.4); Lymphocytes Absolute Auto 0.9 X10*3/uL (1.2-4.9); Lymphocytes Percent Auto 7.1 % (20-40); Mean Corpuscular HGB Conc 30.3 g/dl (31.0-36.0); Mean Corpuscular Hemoglobin 28.1 pg (27.0-33.0); Mean Corpuscular Volume 92.6 fL (80-98); Mean Platelet Volume 10.2 fL (9.4-12.4); Monocytes Absolute Auto 1.1 X10*3/uL (0.1-1.2); Monocytes Percent Auto 8.8 % (2-11); Neutrophils Absolute Auto 10.3 X10*3/uL (2.0-8.3); Neutrophils Percent Auto 83.7 % (45-73); Platelet Count 205 X10*3/uL (160-400); Red Blood Count 5.02 X10*6/uL (4.60-5.80); Red Cell Distribution Width 14.2 % (11.0-16.0); White Blood Count 12.3 X10*3/uL (4.8-10.8)
[2020-08-30 18:37] LABS: VBG Base Excess 1.5 mmol/L; VBG HCO3 28 mmol/L (22-26); VBG pCO2 53 mmHg; VBG pH 7.33 (7.32-7.43); VBG pO2 99 mmHg
[2020-08-30 18:38] LABS: Venous Blood Gas Refer to POC result
[2020-08-30 18:40] LABS: INTERNATIONAL NORM RATIO 1.8 (0.9-1.1); Prothrombin Time 21.9 SEC (10.8-13.0)
[2020-08-30 18:55] LABS: Lactic Acid 1.9 mmol/L (0.5-2.0)
[2020-08-30 18:56] LABS: Ethanol < 10 mg/dL
[2020-08-30 18:58] LABS: Lipase 76 U/L (8-78); Magnesium 2.7 mg/dL (1.6-2.6)
[2020-08-30 19:01] LABS: Troponin-I High Sensitivity 30.7 ng/L (<3.5-35.0)
[2020-08-30 19:02] LABS: B Type Natriuretic Peptide 21 pg/mL (<100)
[2020-08-30 19:18] LABS: Alanine Aminotransferase 15 U/L (0-40); Albumin Level 3.2 g/dL (3.5-5.0); Alkaline Phosphatase 92 U/L (39-117); Anion Gap 16 (12-20); Aspartate Amino Transferase 31 U/L (5-37); Bilirubin Direct 0.5 mg/dL (0.0-0.5); Bilirubin Total 0.8 mg/dL (0.0-1.0); Blood Urea Nitrogen 64 mg/dL (9-16); Carbon Dioxide 26 mmol/L (22-29); Chloride 128 mmol/L (96-108); Creatinine Clr Calc Pharmacy 40.7; Estimated Glomerular Filt Rate 35; Glucose Random 124 mg/dL (60-115); Potassium 4.2 mmol/L (3.3-5.1); Sodium 166 mmol/L (135-145); Total Protein 7.4 g/dL (6.5-8.0)
[2020-08-30 19:19] LABS: TSH reflex Free T4 0.86 uIU/mL (0.32-4.0)
[2020-08-30] MEDS: propofoL 1,000 MG/100 ML VIAL 8.88 MG IVCONT (19:21)
[2020-08-30] MEDS: Piperacillin Sodium/Tazobactam 4.5 GM in 0.9 % Sodium Chloride 100 ML IV (19:26)
--- NOTE | 2020-08-30 19:32 | PHA.MEDREC ---
Pharmacy Consult ? Medication Reconciliation Pharmacy has completed the medication reconciliation.
--- NOTE | 2020-08-30 19:39 | PC.NURSE ---
WINDY SISTER [phone] HCP
[2020-08-30] MEDS: Acetaminophen Supp 650 MG SUPP.RECT PR (20:00)
[2020-08-30 20:18] LABS: COVID-19 Test Negative (Negative)
--- NOTE | 2020-08-30 20:35 | PM.CCHP ---
History of Present Illness Date of Service: 08/30/20 Chief Complaint: Hypoxic respiratory failure /sepsis/ YARELIS/ hypernatremia HPI: Patient with an underlying history of dementia, atrial fibrillation with rapid ventricular response, hypoxic respiratory failure due to aspiration pneumonia post recent treatment with Unasyn, hypernatremia and dehydration with recent admission to the ICU about 20 days ago and discharged on 08/18/2020. The patient presented to the emergency room via EMS from [facility]. According to them, the patient had mental status changes, was barely responsive, found to be hypoxic and hypotensive, upon arrival to the emergency room he was noted to be obtunded with a respiratory rate of 68 in satting 90-91% on 15 L with a blood pressure of 80/39, heart rate of 125, fever of 102.3, the patient was quickly intubated given the inability to protect his airway. Based on presentation it was suspected that the patient had underlying sepsis and 30 mL/kilogram of IV fluids were given. Subsequently his workup revealed a white count of 12.3, H&H of 14 and 46 respectively, platelets 205, PTT of 21.9, INR 1.8, venous blood gas was overall unremarkable with exception of a HC03 of 28 and borderline low pH of 7.33. Sodium of 166, chloride 128, BUN of 64 and creatinine of 1.94, his previous baseline(0.69), glucose 124. Magnesium 2.7 albumin 3.2. COVID pending. ROS: Unable to obtain patient intubated Past Medical History: as above Past Surgical History: Family history: Unknown Social History: Came from a [facility] facility. CODE STATUS: Full code Allergies: Atenolol, Cymbalta, ibuprofen, Levaquin (reaction unknown) Home Medications: Please see med rec PHYSICAL EXAM: VS: blood pressure 97/68, heart rate 79, respirations 20, O2 sat 96% on the following vent settings 18/450/90%/8 General: Intubated. Skin: Excoriated the skin of the buttocks without clear pressure wounds. HEENT: Head is normocephalic, neck supple, no JVD, no mass. Oral mucosa dry Cardiac: Clear S1-S2, no murmurs rubs or gallops. Pulmonary: Coarse lung sounds bilaterally with rhonchi at the bases, no wheezes. Abdomen: Protuberant, positive bowel sounds in all 4 quadrants. Musculoskeletal: No crepitus on passive ROM. No Edema. No asymmetry. Neurologic: As above, intubated unable to assess further at this point. Vascular: 2+ pulses upper and lower extremities distally. SIGNIFICANT LABORATORY DATA: as above REVIEW OF IMAGES: Chest x-ray shows no pathology A head/CT abdomen and pelvis CT without contrast will be ordered. EKG REVIEW: Sinus tachycardia 117 beats per minute. There is no ST elevations, no depressions. No comparison available. ASSESSMENT AND PLAN: 1. Acute sepsis, etiology unknown r/o occult Pneumonia, UTI, Intraabdominal pathology 2. Metabolic encephalopathy rule out organic causes such as brain pathology 3. Hypernatremia likely due to volume depletion 4. Acute kidney injury due to volume depletion and worsened by a nephrotoxins such as lisinopril 5. Coagulopathy with elevated INR 6. Hypoalbuminemia Admit to ICU, vital signs, I's and O's, order CT of the abdomen pelvis, head CT, empiric antibiotics, urinalysis, repeat chemistries to ensure that his sodium does not keep rising, if truly due to dehydration, this should have come down after IV fluids given in the ER. Repeat labs in the morning. Repeat lactic acid now. Empiric Antibiotic (Zosyn and Vanco ---renally adjust dose)Add Depakote level, will give him albumin, repeat and monitor PT INR. Will attempt to contact family members for further guidance on patient's goals of care given that he has been recently hospitalized, has history of dementia and overall significantly ill. I am not considering a pulmonary embolism at this point for the patient was never hypoxic, I cannot do a CT angiogram due to the patient's renal failure. Will hold off on lisinopril and other potential nephrotoxic medications; will order sputum culture. GI PROPHYLAXIS: IV PPI DVT PROPHYLAXIS: Pneumatic Stocks 0615 am At this time, the patient is hypoxic despite of current ventilation, had them increase the PEEP from 8-12, tidal volumes are about 550, he is now on 100% FiO2. I am concerned that the patient might have a pneumothorax versus underlying pulmonary embolism. Review of a bedside chest x-ray shows the endotracheal tube about 5 cm above the nate, will have them push it in to 25com at the lip. There is no pneumothorax noted, the x-ray overall looks clean. He may need a nuclear medicine study to further assess the possibility of a PE given the renal failure. The case was discussed in detail with Dr. rico who is coming in to further take care of the patient. At this point we are holding off on anticoagulation, the only other thought is small function of the endotracheal tube which could be replaced. ProBNP and troponin have been added to rule out right heart strain in the setting of saddle emboli. Critical care time used for critical evaluation of this patient, diagnosis, treatment and coordination of care, review her records and documentation TOTAL CRITICAL CARE TIME 90 MIN . Patient's care was discussed in detail with Dr. Rico. He is aware of all the above as well as the plan of care for this patient. [facility] Past Medical History Medical History Advanced dementia Afib Dementia HTN (hypertension) Mood disorder Social History Social History Household Members: None Housing: Assisted Living Facility Do you presently have visiting nurse or other home services: No Unable to assess alcohol history related to: Unable to respond Patient Tobacco Use Status: Tobacco use Unknown Use of substances other than those prescribed or required for medical reasons: Unable to respond Currently Displaying Signs/Symptoms of Drug Intoxication Withdrawal: No Advance Directives: Yes Advance Directives on File: Yes Advance Directives Date on File: 08/05/20 Recently lost weight without trying: Unsure Nutrition Risks: Anorexia Poor oral hygiene: Yes service: No (UNKLNOWN) Current occupational status: retired Meds Allergies Allergy/AdvReac Type Severity Reaction Status Date / Time atenolol Allergy Unknown Verified 08/04/20 13:37 duloxetine [From Cymbalta] Allergy Unknown Verified 08/04/20 13:37 ibuprofen Allergy Unknown Verified 08/04/20 13:37 levofloxacin [From Levaquin] Allergy Unknown Verified 08/04/20 13:37 Active Medications: Current Medications Generic Name Dose Route Start Last Admin Trade Name Freq PRN Reason Stop Dose Admin Norepinephrine Bitartrate 8 mg in 250 mls @ 0 mls/hr 08/30/20 17:30 08/30/20 20:30 Levophed IVCONT 0.07 mcg/kg/min .Q0M ARPIT 9.71 mls/hr Titration Protocol Per Protocol Propofol 1,000 mg in 100 mls @ 0 mls/hr 08/30/20 19:30 08/30/20 19:43 Diprivan IVCONT 30 mcg/kg/min .Q0M ARPIT 13.32 mls/hr Titration Protocol Per Protocol Pantoprazole Sodium 40 mg 08/31/20 06:30 Pantoprazole Sodium 40 Mg/10 Ml Vial IVPUSH DAILY@0630 [facility] Home Medications Medication Instructions Recorded Confirmed Last Taken Type amlodipine 2.5 mg PO DAILY@0908/04/20 08/30/20 08/30/20 History aspirin 81 mg PO DAILY@0908/04/20 08/30/20 08/30/20 History cholecalciferol (vitamin D3) 25 mcg PO DAILY 08/04/20 08/30/20 08/30/20 History divalproex 1,000 mg PO BEDTIME 08/04/20 08/30/20 08/29/20 History divalproex [Depakote Sprinkles] 750 mg PO DAILY 08/04/20 08/30/20 08/30/20 History escitalopram oxalate 20 mg PO BEDTIME 08/04/20 08/30/20 08/29/20 History famotidine 40 mg PO DAILY@0900 08/04/20 08/30/20 08/30/20 History lisinopril 40 mg PO DAILY 08/04/20 08/30/20 08/30/20 History olanzapine 5 mg PO DAILY 08/04/20 08/30/20 08/30/20 History olanzapine 10 mg PO BEDTIME 08/04/20 08/30/20 08/29/20 History simvastatin 20 mg PO BEDTIME 08/04/20 08/30/20 08/29/20 History trazodone 100 mg PO BEDTIME 08/04/20 08/30/20 08/29/20 History olanzapine [Zyprexa] 10 mg IM BEDTIME PRN 08/30/20 08/30/20 Unknown History Physical Exam Vital Signs: Vital Signs: Last Vital Signs Temp 100.6 F H 08/30/20 20:31 Pulse 96 08/30/20 20:31 Resp 26 H 08/30/20 20:31 BP 106/60 08/30/20 20:31 Pulse Ox 91 L 08/30/20 20:31 Body Mass Index 21.5 Results Labs CBC and Chem 7: 08/31/20 05:18 08/31/20 19:54 Labs: Laboratory Results - last 24 hr 08/30/20 08/30/20 08/30/20 17:20 18:24 18:25 MCV MCH MCHC RDW Plt Count MPV Immature Gran % (Auto) Neut % (Auto) Lymph % (Auto) Terry % (Auto) Eos % (Auto) Baso % (Auto) Lymph # (Auto) Terry # (Auto) Eos # (Auto) Baso # (Auto) Abs Immat Gran (auto) Absolute Neuts (auto) Absolute Nucleated RBC Nucleated RBC % (auto) PT INR VBG pH VBG pCO2 VBG pO2 VBG HCO3 VBG O2 Saturation VBG Base Excess Anion Gap Estim Creat Clear Calc Estimated GFR POC Glucose 117 H Random Glucose Lactic Acid Calcium Magnesium 2.7 H Total Bilirubin Direct Bilirubin AST ALT Alkaline Phosphatase Troponin I High Sens B-Natriuretic Peptide Total Protein Albumin Lipase 76 TSH 0.86 Ethyl Alcohol < 10 COVID-19 (MARBELLA) [facility] 08/30/20 08/30/20 08/30/20 18:25 18:26 18:26 MCV MCH MCHC RDW Plt Count MPV Immature Gran % (Auto) Neut % (Auto) Lymph % (Auto) Terry % (Auto) Eos % (Auto) Baso % (Auto) Lymph # (Auto) Terry # (Auto) Eos # (Auto) Baso # (Auto) Abs Immat Gran (auto) Absolute Neuts (auto) Absolute Nucleated RBC Nucleated RBC % (auto) PT INR VBG pH VBG pCO2 VBG pO2 VBG HCO3 VBG O2 Saturation VBG Base Excess Anion Gap 16 Estim Creat Clear Calc 40.7 Estimated GFR 35 POC Glucose Random Glucose 124 H D Lactic Acid Calcium 9.0 Magnesium Total Bilirubin 0.8 Direct Bilirubin 0.5 AST 31 D ALT 15 Alkaline Phosphatase 92 D Troponin I High Sens 30.7 D B-Natriuretic Peptide 21 Total Protein 7.4 Albumin 3.2 L Lipase TSH Ethyl Alcohol COVID-19 (MARBELLA) [employer] 08/30/20 08/30/20 08/30/20 18:26 18:26 18:27 MCV 92.6 MCH 28.1 MCHC 30.3 L RDW 14.2 Plt Count 205 MPV 10.2 Immature Gran % (Auto) 0.2 Neut % (Auto) 83.7 H Lymph % (Auto) 7.1 L Terry % (Auto) 8.8 Eos % (Auto) 0.0 Baso % (Auto) 0.2 Lymph # (Auto) 0.9 L Terry # (Auto) 1.1 Eos # (Auto) 0.0 Baso # (Auto) 0.0 Abs Immat Gran (auto) 0.03 Absolute Neuts (auto) 10.3 H Absolute Nucleated RBC 0.000 Nucleated RBC % (auto) 0.0 PT 21.9 H D INR 1.8 H VBG pH VBG pCO2 VBG pO2 VBG HCO3 VBG O2 Saturation VBG Base Excess Anion Gap Estim Creat Clear Calc Estimated GFR POC Glucose Random Glucose Lactic Acid 1.9 Calcium Magnesium Total Bilirubin Direct Bilirubin AST ALT Alkaline Phosphatase Troponin I High Sens B-Natriuretic Peptide Total Protein Albumin Lipase TSH Ethyl Alcohol COVID-19 (MARBELLA) [employer] 08/30/20 08/30/20 18:30 19:15 MCV MCH MCHC RDW Plt Count MPV Immature Gran % (Auto) Neut % (Auto) Lymph % (Auto) Terry % (Auto) Eos % (Auto) Baso % (Auto) Lymph # (Auto) Terry # (Auto) Eos # (Auto) Baso # (Auto) Abs Immat Gran (auto) Absolute Neuts (auto) Absolute Nucleated RBC Nucleated RBC % (auto) PT INR VBG pH 7.33 VBG pCO2 53 VBG pO2 99 VBG HCO3 28 H VBG O2 Saturation 96.0 VBG Base Excess 1.5 Anion Gap Estim Creat Clear Calc Estimated GFR POC Glucose Random Glucose Lactic Acid Calcium Magnesium Total Bilirubin Direct Bilirubin AST ALT Alkaline Phosphatase Troponin I High Sens B-Natriuretic Peptide Total Protein Albumin Lipase TSH Ethyl Alcohol COVID-19 (MARBELLA) Negative COVID-19 Clin Com See Note Imaging Radiologist's Impressions: Impressions Chest X-Ray 08/30/20 17:22 IMPRESSION: New right jugular central catheter in mid SVC. Tip of endotracheal tube is 5 cm above the nate. The lungs are clear.
[2020-08-30 21:19] LABS: Valproate 2.7 mcg/mL (50.0-100.0)
[2020-08-30] MEDS: propofoL 1,000 MG/100 ML VIAL 17.76 MG IVCONT (21:37)
[2020-08-30 21:56] LABS: Glucose Urine UA NEG (NEG); Leukocyte Esterase Urine NEG (NEG); Nitrite Urine NEG (NEG); Urine Blood 3+ (NEG); Urine Ketones NEG (NEG); Urine Protein TRACE MG/DL (NEG-TRACE)
[2020-08-30 21:57] LABS: Appearance Urine HAZY; Color Urine YELLOW
[2020-08-30 22:04] LABS: Bacteria Urine TRACE /LPF; Mucus Urine TRACE /LPF; RBC Urine 30-49 /HPF (0); Squamous Epithelial Cell Urine TRACE /LPF; WBC Urine 0 /HPF (0-4)
[2020-08-30 22:21] LABS: Lactic Acid 1.9 mmol/L (0.5-2.0)
[2020-08-30 22:32] LABS: Anion Gap 14 (12-20); Blood Urea Nitrogen 60 mg/dL (9-16); Calcium 8.5 mg/dL (8.4-10.2); Carbon Dioxide 26 mmol/L (22-29); Chloride 128 mmol/L (96-108); Creatinine Clr Calc Pharmacy 44.2; Estimated Glomerular Filt Rate 39; Glucose Fasting 133 mg/dL (60-99); Phosphorus 4.1 mg/dL (2.7-4.5); Potassium 4.5 mmol/L (3.3-5.1); Sodium 163 mmol/L (135-145)
[2020-08-30] MEDS: vancomycin HCL 1,000 MG in 0.9 % Sodium Chloride 250 ML 270 MG IV (22:54)
[2020-08-30] MEDS: Dextrose 5 % 1,000 ML 100 ML IVCONT (22:54)
[2020-08-31] VITALS (33 sets, daily range): BP systolic 87–118; BP diastolic 57–81; PULSE 61–89; RESP 12–32; TEMP 37.3–37.9; O2SAT 86–100; BMI 24.3
--- NOTE | 2020-08-31 00:42 | PC.NURSE ---
Addendum entered by Deann Hanson RN 08/31/20 07:04: At approx 0600, pt desaturating to 84%. RT/PA notified. Repositioned, ETT in place, LS clear, FiO2 increased to 100%, PEEP increased to +14, bagged/lavaged with no effect. Stat pCXR done, reviewed by PA. SpO2 still fluctuating between 89-90%. Oncoming RN made aware and at bedside. Addendum entered by Deann Hanson RN 08/31/20 04:54: RR 30s, EtCO2 18, propofol gtt maxed. PA notified. Fentanyl gtt ordered, see drug titration. Original Note: Pt admitted to ICU at approx 2100. Intubated in ED, ETT #8, 24 cm at lip. Vent settings- AC 18/450/+8/100%, FiO2 to be titrated down as tolerated. RR 20-30s. Sputum sample obtained, culture pending. Moderate amount of thick yee inline secretions. LS rhonchorous throughout. Sedated on propofol, unable to follow commands, opens eyes to noxious stimuli, +C/G. NSR on tele. Levophed titrated to maintain MAP > 65. OGT clamped. Temp bauman placed, urine culture sent. Medicated per emar. PA aware of critical labs. Skin- excoriation to scrotum, R heel boggy, ?stage 2 to bilateral buttocks. Pictures taken, will contact wound nurse in AM. Placed on air mattress system, air boots applied, reposition q2hr.
[2020-08-31] MEDS: Piperacillin Sodium/Tazobactam 3.375 GM in 0.9 % Sodium Chloride 50 ML IV ×2 (01:52→07:28)
[2020-08-31] MEDS: propofoL 1,000 MG/100 ML VIAL 22.2 MG IVCONT ×2 (02:10→06:14)
[2020-08-31] MEDS: fentaNYL citrate/NS 1,000 MCG/100 ML PLAST..BAG 10 MCG IVCONT (04:52)
[2020-08-31 05:27] LABS: VBG Base Excess -0.7 mmol/L; VBG HCO3 24 mmol/L (22-26); VBG pCO2 39 mmHg; VBG pH 7.39 (7.32-7.43); VBG pO2 55 mmHg
[2020-08-31 05:40] LABS: Hematocrit 43.2 % (42-52); Hemoglobin 13.1 g/dl (14.0-18.0); Mean Corpuscular HGB Conc 30.3 g/dl (31.0-36.0); Mean Corpuscular Hemoglobin 28.2 pg (27.0-33.0); Mean Corpuscular Volume 92.9 fL (80-98); Mean Platelet Volume 10.3 fL (9.4-12.4); Platelet Count 166 X10*3/uL (160-400); Red Blood Count 4.65 X10*6/uL (4.60-5.80); Red Cell Distribution Width 14.3 % (11.0-16.0); White Blood Count 13.4 X10*3/uL (4.8-10.8)
[2020-08-31] MEDS: Pantoprazole Sodium 40 MG/10 ML VIAL IVPUSH (05:52)
[2020-08-31 06:08] LABS: Alanine Aminotransferase 17 U/L (0-40); Albumin Level 2.8 g/dL (3.5-5.0); Alkaline Phosphatase 78 U/L (39-117); Anion Gap 12 (12-20); Aspartate Amino Transferase 29 U/L (5-37); Bilirubin Total 0.5 mg/dL (0.0-1.0); Blood Urea Nitrogen 50 mg/dL (9-16); C Reactive Protein 12.27 mg/dL (< or = 0.50); Calcium 8.7 mg/dL (8.4-10.2); Carbon Dioxide 25 mmol/L (22-29); Chloride 125 mmol/L (96-108); Creatinine Clr Calc Pharmacy 53.7; Estimated Glomerular Filt Rate 44; Glucose Random 164 mg/dL (60-115); Potassium 4.1 mmol/L (3.3-5.1); Sodium 158 mmol/L (135-145); Total Protein 6.6 g/dL (6.5-8.0)
[2020-08-31 06:28] LABS: Band Neutrophils Percent 27 % (3-5); Lymphocytes Absolute Manual 1.2 X10*3/uL (0.6-4.8); Lymphocytes Percent Manual 9 % (20-40); Metamyelocytes Absolute 0.3 X10*3/uL; Metamyelocytes Percent 2 %; Monocytes Absolute Manual 0.7 X10*3/uL (0.0-1.2); Monocytes Percent Manual 5 % (2-11); Myelocytes Absolute 0.4 X10*/uL; Myelocytes Percent 3 %; Neutrophils Absolute Manual 10.9 X10*3/uL (2.2-7.9); Neutrophils Percent Manual 54 % (45-73)
[2020-08-31 06:29] LABS: RBC Morphology NORMAL
[2020-08-31 06:30] LABS: Platelet Estimate NORMAL (NORMAL); Platelet Morphology Comment NORMAL
[2020-08-31] MEDS: Albumin Human 25 % 100 ML IV ×3 (07:33→17:04)
[2020-08-31] MEDS: Dextrose 5 % 1,000 ML 100 ML IVCONT (07:43)
[2020-08-31 07:48] LABS: B Type Natriuretic Peptide 27 pg/mL (<100); Troponin-I High Sensitivity 26.6 ng/L (<3.5-35.0)
[2020-08-31 07:59] LABS: Venous Blood Gas Refer to POC result
--- NOTE | 2020-08-31 08:38 | PM.CCPN ---
Subjective Subjective Date of Service: 08/31/20 Interval History: Mr Sharp was admitted to the ICU last night with acute respiratory failure, obtundation, and hypernatremia, after being intubated in the ED. The patient is well known to me from admission to the ICU earlier this month. His detention PMHx is not fully clear. The best information we have indicates that he was in a maximum security assisted for a long time and had dementia. Approximately the middle of this past July, he was transferred to [facility] (a [facility] facility[facility] with a [place] order for his psych meds (including divalproex and olanzapine). Their notes indicate that he has Alzheimer?s disease. PMHx also includes hypertension, dyslipidemia, depression, GERD, glaucoma, and status post appendectomy, and right total hip replacement. The patient completed the Moderna COVID vaccine this past April. The patient was sent to [facility] on 08/04/2020 from [facility] bec of worsening aggressive behavioral problems and refusing to take meds. He was discovered to have hypernatremia and dehydration and was admitted for same. On the monroy at that time, the patient was ?completely demented and is not able to participate in any conversation, agitated and comabative at times, refuses to eat.? His Depakote and olanzapine were continued. He was gurgling and needed prn deep suctioning. On August 07, the patient aspirated and was transferred to ICU. Healthcare proxy wanted everything done , including a feeding tube if nec. Fortunately, the patient did well, and never really developed pneumonia. He was clearly handling his secretions imperfectly, although he was able to swallow pills ground up in nectar-thick liquids, and did pass a swallow eval for mechanically ground solids and nectar thick liquids. The patient was seen by Psychiatry and felt to be rigid. The diagnosis of neuroleptic malignant syndrome was entertained. However, his labs, and lack of any hypermetabolic syndrome, were inconsistent with NMS. The patient's Zyprexa was discontinued. The patient was seen by Neurology; Dr. Giraldo also felt that he did not have NMS. On exam here prior to discharge back to his SNF on August 18, the patient was described as ?Alert, looks comfortable, not in distress. Nonverbal, not interactive, and did not respond to any questions but was making eye contact and looking around. No focal deficits?. ?He was able to articulate words but he was difficult to understand.? ?Patient was very picky about his meals and eating partially or refuse meals. Had difficulties delivering his medications as well as he off to refused taking them at times.? A feeding tube was discussed with his healthcare proxy but she felt it was not the right time to do it. Discharge medications included: olanzapine 5 mg qd and 10 mg qhs Depakote Sprinkles 750 mg qd and 1,000 mg qhs trazodone 100 mg qhs escitalopram 20 mg qhs Lab data from 08/30 sent to us from [facility] show that his Hb was 15.6, Na was 160, BUN/creat were 63/1.6. HISTORY OF PRESENT ILLNESS: The patient was BIBA to the ED last night because of obtundation, hypoxemia, and hypotension at the nursing facility. According to a nurse at the SNF, the patient hadn?t been given any meds in the last five days bec of decreased MS. In the ED, the patient was completely obtunded with pinpoint pupils. He was markedly tachypneic, with sat 90% on 15 L face mask, blood pressure 80/39, heart rate 125, and a fever of 102.3. He was intubated immediately on arrival and a central line was placed. He looked very dry, and was given 30 cc/kg of saline and was started on Levophed and antibiotics. Labs in the ED were notable for a white count of 12, hemoglobin of 14 (baseline 12), PTT 21/1.8 (baseline 1.4; patient on no anticoagulation other than aspirin), sodium 166, BUN and creatinine 64/1.9 (baseline 7/0.7), bicarb 26, potassium 4.2, glucose 124, normal LFTs, albumin 3.2, normal troponin, lactic acid 1.9. Valproic acid level was 2.7. Chest x-ray was clear. The patient was admitted to ICU for further management. Head CT was unremarkable. An abdom CT was done to look for a source of sepsis and showed small lower lobe infiltrates, L>R. The patient was continued on vanco and zosyn and vol resusc w D5W. This morning the patient is sedated on propofol at 50ug and unresponsive. Pupils are pinpoint. Temperature is 99.5 degrees. Heart rate 85, sinus. Blood pressure is 103/67 on Levophed 0.25 mcg. We dropped his set ventilatory rate to 12. On PCV rate 12, 12/+12, 50%, RR is about 20, Vt about 500cc, Ve about 9.5L, PIP 23cm, Sat 93%. Central venous blood gas this morning showed 7.39/39/0. There is no jugular venous distention with the head about 20 degrees. Chest has distant BS, CTA w normal exp phase. Soft heart tones, RRR, normal S1 and S2, with no murmur or gallops. The abdomen is benign, with good bowel sounds. There is no edema. Neuro exam is nonfocal, albeit non interactive. LABORATORY DATA: As below. Notably, hemoglobin is down to 13.1 after volume resuscitation. Updated chemistries from 11:40am show sodium of 158, BUN and creatinine down to 44/1.5, bicarb 23, potassium 4.0, phosphorus 2.5. Procalcitonin is 3.4. MICRO: Blood cultures from last night negative so far. Sputum gram stain shows 4+ polys, 2+ yeast. IMAGING: CXR and abdom CT as above. Chest CT this morning shows small bibasilar posterior infiltrates w air bronchograms, as on the abdominal CT. ECHOCARDIOGRAM for hemodynamic monitoring. Done at the bedside by me. Image quality: Fair. No visible cardiac structures in the parasternal or apical views. Good images from the subcostal plane. Findings: 1. LV wall thickness maybe top-normal. 2. Probably normal LV function with EF > 50%. No RWMAs noted. 3. RV size normal. 4. Atria at not adequately visualized. 5. Aortic valve is trileaflet without aortic stenosis. 6. Mitral valve is morphologically normal, with trace MR by color flow. 7. Tricuspid valve is morphologically normal, with 1+ MR by color flow. Measured 2.2 m/sec. Gradient 19mm. 8. Good image of the IVC obtained via the subcostal plane. Measured 1.7 cm with 20% inspiratory collapse. Estimated CVP 5-8. RVSP estimate 24-27mm. IMPRESSION: 1. Underlying dementia, probably severe and progressive, now reaching end stage. From what I know, this sounds like Alzheimer?s, with progressive behavioral component after years of dementia, now with swallowing difficulty leading to recurrent dehydration and hypernatremia, and aspiration. As I wrote in my note from the last admission, likely getting worse, possibly reaching a critical stage that is now starting to impact his swallowing integrity. I.e., overmedication is not the reason for his swallowing difficulty. 2. Obtundation last night likely 2? metabolic encephalopathy, 2? dehydration and hypernatremia, =/- sepsis. And despite the assertion above, cannot r/o the possibility that the patient continued getting some of his [place] order meds. 3. YARELIS 2? marked hypovolemia. With his progressive dementia and swallowing difficulty, it is no surprise at all that the patient developed recurrent hypovolemia and hyperntremia, bec he?s simply unable to ingest the quantity of water and food necessary to keep him hydrated. 4. Hyponatremia 2? same. Slow correction with D5W. 5. Bilat pulmonary infiltrates prob 2? aspiration. (I.e. bilat aspiration pneumonia) 6. Acute respiratory failure 2? aspiration pneumonia and metabolic encephalopathy. At this point, no need to invoke PE, tabatha with normal trop, normal BNP, and normal right heart size on echo. 7. Hypotension. Tabatha with the normal lactate and unimpressive WBC, I think that the hypotension is more likely 2? hypovolemia than sepsis, altho the latter, clearly, cannot be ruled out. Will also give him a hydrocortisone trial. 8. ID: The CT scan is not that impressive. If he has pneumonia, we might as well use Unasyn instead of vanco and zosyn. Cannot r/o sepsis. I spoke with the patient?s HCP, which is his sister Michael ([phone]). She lives in [place]. She told me that the last time she saw her brother was 8 years ago. During that time, his dementia has worsened considerably. I told her quite frankly that he is suffering from classical Alzheimer's dementia with progressing symptoms, now including behavioral difficulty, and progressing to swallowing difficulty and worsening mental status (aside from any metabolic issues), which predictably leads to dehydration and hypernatremia and aspiration, thus causing a vicious platinum, and causing recurrent need for thigh life support. In other words, he is coming to the natural end of his life. I told her that in my opinion, there is no treatment for this, and a feeding tube is not appropriate treatment for a person at the natural end of his life. To say nothing of the fact that at best, it would prolong his life (actually his ) by only a few months. I told her that she has to come up here and see him. She said that she will make it up here. Critical care time (including extended history and chart review): 140 min. Critical Care Time (minutes): 140 Physical Exam Vital Signs: Vital Signs: Last Vital Signs Temp 99.9 F 08/31/20 08:00 Pulse 79 08/31/20 08:00 Resp 20 08/31/20 08:00 BP 115/76 08/31/20 08:00 Pulse Ox 94 08/31/20 08:00 Body Mass Index 24.3 Objective Data Labs CBC & Chem 7: 08/31/20 05:18 08/31/20 11:40 Labs: Laboratory Results - last 24 hr 08/30/20 08/30/20 08/30/20 17:20 18:24 18:25 WBC RBC Hgb Hct MCV MCH MCHC RDW Plt Count MPV Immature Gran % (Auto) Neut % (Auto) Lymph % (Auto) Dickson % (Auto) Eos % (Auto) Baso % (Auto) Lymph # (Auto) Dickson # (Auto) Eos # (Auto) Baso # (Auto) Abs Immat Gran (auto) Absolute Neuts (auto) Absolute Nucleated RBC Nucleated RBC % (auto) Neutrophils % (Manual) Band Neutrophils % Lymphocytes % (Manual) Monocytes % (Manual) Metamyelocytes % Myelocytes % Abs Neuts (Manual) Lymphocytes # (Manual) Monocytes # (Manual) Metamyelocytes # Myelocytes # Platelet Estimate Plt Morphology Comment RBC Morphology PT INR VBG pH VBG pCO2 VBG pO2 VBG HCO3 VBG O2 Saturation VBG Base Excess Sodium Potassium Chloride Carbon Dioxide Anion Gap BUN Creatinine Estim Creat Clear Calc Estimated GFR POC Glucose 117 H Random Glucose Fasting Glucose Lactic Acid Calcium Phosphorus Magnesium 2.7 H Total Bilirubin Direct Bilirubin AST ALT Alkaline Phosphatase Troponin I High Sens C-Reactive Protein B-Natriuretic Peptide Total Protein Albumin Lipase 76 TSH 0.86 Urine Color Urine Appearance Urine pH Ur Specific [place] Urine Protein Urine Glucose (UA) Urine Ketones Urine Blood Urine Nitrite Ur Leukocyte Esterase Urine RBC Urine WBC Ur Squamous Epith Cells Urine Bacteria Hyaline Casts Urine Mucus Valproic Acid 2.7 L Ethyl Alcohol < 10 COVID-19 ([facility]) COVID-19 Clin Com 08/30/20 08/30/20 08/30/20 18:25 18:26 18:26 WBC RBC Hgb Hct MCV MCH MCHC RDW Plt Count MPV Immature Gran % (Auto) Neut % (Auto) Lymph % (Auto) Dickson % (Auto) Eos % (Auto) Baso % (Auto) Lymph # (Auto) Dickson # (Auto) Eos # (Auto) Baso # (Auto) Abs Immat Gran (auto) Absolute Neuts (auto) Absolute Nucleated RBC Nucleated RBC % (auto) Neutrophils % (Manual) Band Neutrophils % Lymphocytes % (Manual) Monocytes % (Manual) Metamyelocytes % Myelocytes % Abs Neuts (Manual) Lymphocytes # (Manual) Monocytes # (Manual) Metamyelocytes # Myelocytes # Platelet Estimate Plt Morphology Comment RBC Morphology PT INR VBG pH VBG pCO2 VBG pO2 VBG HCO3 VBG O2 Saturation VBG Base Excess Sodium 166 H* Potassium 4.2 Chloride 128 H Carbon Dioxide 26 Anion Gap 16 BUN 64 H D Creatinine 1.94 H Estim Creat Clear Calc 40.7 Estimated GFR 35 POC Glucose Random Glucose 124 H D Fasting Glucose Lactic Acid Calcium 9.0 Phosphorus Magnesium Total Bilirubin 0.8 Direct Bilirubin 0.5 AST 31 D ALT 15 Alkaline Phosphatase 92 D Troponin I High Sens 30.7 D C-Reactive Protein B-Natriuretic Peptide 21 Total Protein 7.4 Albumin 3.2 L Lipase TSH Urine Color Urine Appearance Urine pH Ur Specific [place] Urine Protein Urine Glucose (UA) Urine Ketones Urine Blood Urine Nitrite Ur Leukocyte Esterase Urine RBC Urine WBC Ur Squamous Epith Cells Urine Bacteria Hyaline Casts Urine Mucus Valproic Acid Ethyl Alcohol COVID-19 ([facility]) COVID-19 Clin Com 08/30/20 08/30/20 08/30/20 18:26 18:26 18:27 WBC 12.3 H RBC 5.02 Hgb 14.1 Hct 46.5 MCV 92.6 MCH 28.1 MCHC 30.3 L RDW 14.2 Plt Count 205 MPV 10.2 Immature Gran % (Auto) 0.2 Neut % (Auto) 83.7 H Lymph % (Auto) 7.1 L Dickson % (Auto) 8.8 Eos % (Auto) 0.0 Baso % (Auto) 0.2 Lymph # (Auto) 0.9 L Dickson # (Auto) 1.1 Eos # (Auto) 0.0 Baso # (Auto) 0.0 Abs Immat Gran (auto) 0.03 Absolute Neuts (auto) 10.3 H Absolute Nucleated RBC 0.000 Nucleated RBC % (auto) 0.0 Neutrophils % (Manual) Band Neutrophils % Lymphocytes % (Manual) Monocytes % (Manual) Metamyelocytes % Myelocytes % Abs Neuts (Manual) Lymphocytes # (Manual) Monocytes # (Manual) Metamyelocytes # Myelocytes # Platelet Estimate Plt Morphology Comment RBC Morphology PT 21.9 H D INR 1.8 H VBG pH VBG pCO2 VBG pO2 VBG HCO3 VBG O2 Saturation VBG Base Excess Sodium Potassium Chloride Carbon Dioxide Anion Gap BUN Creatinine Estim Creat Clear Calc Estimated GFR POC Glucose Random Glucose Fasting Glucose Lactic Acid 1.9 Calcium Phosphorus Magnesium Total Bilirubin Direct Bilirubin AST ALT Alkaline Phosphatase Troponin I High Sens C-Reactive Protein B-Natriuretic Peptide Total Protein Albumin Lipase TSH Urine Color Urine Appearance Urine pH Ur Specific [place] Urine Protein Urine Glucose (UA) Urine Ketones Urine Blood Urine Nitrite Ur Leukocyte Esterase Urine RBC Urine WBC Ur Squamous Epith Cells Urine Bacteria Hyaline Casts Urine Mucus Valproic Acid Ethyl Alcohol COVID-19 ([facility]) COVID-19 Clin Com 08/30/20 08/30/20 08/30/20 18:30 19:15 20:23 WBC RBC Hgb Hct MCV MCH MCHC RDW Plt Count MPV Immature Gran % (Auto) Neut % (Auto) Lymph % (Auto) Dickson % (Auto) Eos % (Auto) Baso % (Auto) Lymph # (Auto) Dickson # (Auto) Eos # (Auto) Baso # (Auto) Abs Immat Gran (auto) Absolute Neuts (auto) Absolute Nucleated RBC Nucleated RBC % (auto) Neutrophils % (Manual) Band Neutrophils % Lymphocytes % (Manual) Monocytes % (Manual) Metamyelocytes % Myelocytes % Abs Neuts (Manual) Lymphocytes # (Manual) Monocytes # (Manual) Metamyelocytes # Myelocytes # Platelet Estimate Plt Morphology Comment RBC Morphology PT INR VBG pH 7.33 VBG pCO2 53 VBG pO2 99 VBG HCO3 28 H VBG O2 Saturation 96.0 VBG Base Excess 1.5 Sodium Potassium Chloride Carbon Dioxide Anion Gap BUN Creatinine Estim Creat Clear Calc Estimated GFR POC Glucose Random Glucose Fasting Glucose Lactic Acid Calcium Phosphorus Magnesium Total Bilirubin Direct Bilirubin AST ALT Alkaline Phosphatase Troponin I High Sens C-Reactive Protein B-Natriuretic Peptide Total Protein Albumin Lipase TSH Urine Color Urine Appearance Urine pH Ur Specific [place] Urine Protein Urine Glucose (UA) Urine Ketones Urine Blood Urine Nitrite Ur Leukocyte Esterase Urine RBC Urine WBC Ur Squamous Epith Cells Urine Bacteria Hyaline Casts Urine Mucus Valproic Acid Cancelled Ethyl Alcohol COVID-19 ([facility]) Negative COVID-19 Clin Com See Note 08/30/20 08/30/20 08/30/20 21:41 21:45 21:45 WBC RBC Hgb Hct MCV MCH MCHC RDW Plt Count MPV Immature Gran % (Auto) Neut % (Auto) Lymph % (Auto) Dickson % (Auto) Eos % (Auto) Baso % (Auto) Lymph # (Auto) Dickson # (Auto) Eos # (Auto) Baso # (Auto) Abs Immat Gran (auto) Absolute Neuts (auto) Absolute Nucleated RBC Nucleated RBC % (auto) Neutrophils % (Manual) Band Neutrophils % Lymphocytes % (Manual) Monocytes % (Manual) Metamyelocytes % Myelocytes % Abs Neuts (Manual) Lymphocytes # (Manual) Monocytes # (Manual) Metamyelocytes # Myelocytes # Platelet Estimate Plt Morphology Comment RBC Morphology PT INR VBG pH VBG pCO2 VBG pO2 VBG HCO3 VBG O2 Saturation VBG Base Excess Sodium 163 H* Potassium 4.5 Chloride 128 H Carbon Dioxide 26 Anion Gap 14 BUN 60 H Creatinine 1.79 H Estim Creat Clear Calc 44.2 Estimated GFR 39 POC Glucose Random Glucose Fasting Glucose 133 H D Lactic Acid 1.9 Calcium 8.5 Phosphorus 4.1 Magnesium Total Bilirubin Direct Bilirubin AST ALT Alkaline Phosphatase Troponin I High Sens C-Reactive Protein B-Natriuretic Peptide Total Protein Albumin Lipase TSH Urine Color YELLOW Urine Appearance HAZY Urine pH 6.0 Ur Specific [place] 1.020 Urine Protein TRACE Urine Glucose (UA) NEG Urine Ketones NEG Urine Blood 3+ H Urine Nitrite NEG Ur Leukocyte Esterase NEG Urine RBC 30-49 H Urine WBC 0 Ur Squamous Epith Cells TRACE Urine Bacteria TRACE Hyaline Casts 5-9 Urine Mucus TRACE Valproic Acid Ethyl Alcohol COVID-19 ([facility]) COVID-19 Clin Com 08/31/20 08/31/20 08/31/20 05:18 05:18 05:18 WBC 13.4 H RBC 4.65 Hgb 13.1 L Hct 43.2 MCV 92.9 MCH 28.2 MCHC 30.3 L RDW 14.3 Plt Count 166 MPV 10.3 Immature Gran % (Auto) Cancelled Neut % (Auto) Cancelled Lymph % (Auto) Cancelled Dickson % (Auto) Cancelled Eos % (Auto) Cancelled Baso % (Auto) Cancelled Lymph # (Auto) Cancelled Dickson # (Auto) Cancelled Eos # (Auto) Cancelled Baso # (Auto) Cancelled Abs Immat Gran (auto) Cancelled Absolute Neuts (auto) Cancelled Absolute Nucleated RBC 0.000 Nucleated RBC % (auto) 0.0 Neutrophils % (Manual) 54 Band Neutrophils % 27 H Lymphocytes % (Manual) 9 L Monocytes % (Manual) 5 Metamyelocytes % 2 Myelocytes % 3 Abs Neuts (Manual) 10.9 H Lymphocytes # (Manual) 1.2 Monocytes # (Manual) 0.7 Metamyelocytes # 0.3 Myelocytes # 0.4 Platelet Estimate NORMAL Plt Morphology Comment NORMAL RBC Morphology NORMAL PT INR VBG pH VBG pCO2 VBG pO2 VBG HCO3 VBG O2 Saturation VBG Base Excess Sodium 158 H Potassium 4.1 Chloride 125 H Carbon Dioxide 25 Anion Gap 12 BUN 50 H Creatinine 1.59 H Estim Creat Clear Calc 53.7 Estimated GFR 44 POC Glucose Random Glucose 164 H Fasting Glucose Lactic Acid Calcium 8.7 Phosphorus Magnesium Total Bilirubin 0.5 Direct Bilirubin AST 29 ALT 17 Alkaline Phosphatase 78 Troponin I High Sens 26.6 C-Reactive Protein 12.27 H B-Natriuretic Peptide 27 Total Protein 6.6 Albumin 2.8 L Lipase TSH Urine Color Urine Appearance Urine pH Ur Specific [place] Urine Protein Urine Glucose (UA) Urine Ketones Urine Blood Urine Nitrite Ur Leukocyte Esterase Urine RBC Urine WBC Ur Squamous Epith Cells Urine Bacteria Hyaline Casts Urine Mucus Valproic Acid Ethyl Alcohol COVID-19 ([facility]) COVID-19 Clin Com 08/31/20 05:19 WBC RBC Hgb Hct MCV MCH MCHC RDW Plt Count MPV Immature Gran % (Auto) Neut % (Auto) Lymph % (Auto) Dickson % (Auto) Eos % (Auto) Baso % (Auto) Lymph # (Auto) Dickson # (Auto) Eos # (Auto) Baso # (Auto) Abs Immat Gran (auto) Absolute Neuts (auto) Absolute Nucleated RBC Nucleated RBC % (auto) Neutrophils % (Manual) Band Neutrophils % Lymphocytes % (Manual) Monocytes % (Manual) Metamyelocytes % Myelocytes % Abs Neuts (Manual) Lymphocytes # (Manual) Monocytes # (Manual) Metamyelocytes # Myelocytes # Platelet Estimate Plt Morphology Comment RBC Morphology PT INR VBG pH 7.39 VBG pCO2 39 VBG pO2 55 VBG HCO3 24 VBG O2 Saturation 79.0 VBG Base Excess -0.7 Sodium Potassium Chloride Carbon Dioxide Anion Gap BUN Creatinine Estim Creat Clear Calc Estimated GFR POC Glucose Random Glucose Fasting Glucose Lactic Acid Calcium Phosphorus Magnesium Total Bilirubin Direct Bilirubin AST ALT Alkaline Phosphatase Troponin I High Sens C-Reactive Protein B-Natriuretic Peptide Total Protein Albumin Lipase TSH Urine Color Urine Appearance Urine pH Ur Specific [place] Urine Protein Urine Glucose (UA) Urine Ketones Urine Blood Urine Nitrite Ur Leukocyte Esterase Urine RBC Urine WBC Ur Squamous Epith Cells Urine Bacteria Hyaline Casts Urine Mucus Valproic Acid Ethyl Alcohol COVID-19 ([facility]) COVID-19 Clin Com Quality Stroke Does the patient have a stroke diagnosis?: No VTE Prior VTE?: No VTE Risk Level:: Medical - moderate - high VTE Device Contraindication: N/A - Device Ordered VTE Drug Contraindication: N/A - Med Ordered Critical Care Time Critical Care Time (minutes): 150
--- NOTE | 2020-08-31 09:51 | MHC.CM.PN ---
pt is from [facility] where he is a resident. dc plan is to return there when medically stable. a ref. to [facility] has been made. pt has a sister in [place] who is though to be pt's guardian. cm to cont. to follow.
[2020-08-31] MEDS: propofoL 1,000 MG/100 ML VIAL 13.32 MG IVCONT (10:40)
[2020-08-31 12:29] LABS: Blood Urea Nitrogen 44 mg/dL (9-16); Calcium 8.8 mg/dL (8.4-10.2); Creatinine Clr Calc Pharmacy 54.7; Estimated Glomerular Filt Rate 45; Glucose Random 160 mg/dL (60-115); Magnesium 2.5 mg/dL (1.6-2.6); Phosphorus 2.5 mg/dL (2.7-4.5)
[2020-08-31 12:41] LABS: Procalcitonin 3.45 ng/mL
[2020-08-31] MEDS: Ampicillin Sodium/Sulbactam Na 3 GM in 0.9 % Sodium Chloride 100 ML IV ×2 (12:44→20:15)
[2020-08-31] MEDS: Heparin Sodium,Porcine 5,000 UNIT/ML VIAL 5000 UNIT SUBCUT ×2 (12:46→20:16)
[2020-08-31 12:49] LABS: Anion Gap 15 (12-20); Carbon Dioxide 23 mmol/L (22-29); Chloride 124 mmol/L (96-108); Sodium 158 mmol/L (135-145)
[2020-08-31] MEDS: Hydrocortisone Sod Succ/PF 100 MG VIAL IVPUSH (14:06)
[2020-08-31] MEDS: Dextrose 5 % 1,000 ML 150 ML IVCONT ×2 (16:38→23:24)
[2020-08-31] MEDS: propofoL 1,000 MG/100 ML VIAL 8.88 MG IVCONT (20:24)
[2020-08-31 20:40] LABS: Anion Gap 14 (12-20); Blood Urea Nitrogen 32 mg/dL (9-16); Calcium 8.8 mg/dL (8.4-10.2); Carbon Dioxide 24 mmol/L (22-29); Chloride 121 mmol/L (96-108); Creatinine Clr Calc Pharmacy 64.7; Estimated Glomerular Filt Rate 55; Glucose Random 173 mg/dL (60-115); Phosphorus 1.8 mg/dL (2.7-4.5); Potassium 3.7 mmol/L (3.3-5.1); Sodium 155 mmol/L (135-145)
[2020-08-31] MEDS: Albumin Human 25 % 100 ML 200 ML IV (23:24)
[2020-09-01] VITALS (36 sets, daily range): BP systolic 88–146; BP diastolic 53–82; PULSE 52–146; RESP 12–56; TEMP 36.6–38; O2SAT 90–100; BMI 24.6
[2020-09-01] MEDS: Ampicillin Sodium/Sulbactam Na 3 GM in 0.9 % Sodium Chloride 100 ML IV ×4 (02:09→20:41)
--- NOTE | 2020-09-01 03:24 | PC.NURSE ---
Patient with 2 voids around bauman catheter. CRISTIN Quinn notified. 16 [place] bauman catheter removed and replaced with a 18 [place] bauman catheter; 250 ml urine drained with insertion. Patient tolerated well.
[2020-09-01] MEDS: Heparin Sodium,Porcine 5,000 UNIT/ML VIAL 5000 UNIT SUBCUT ×2 (03:43→13:02)
[2020-09-01 05:27] LABS: VBG Base Excess 0.9 mmol/L; VBG HCO3 25 mmol/L (22-26); VBG pCO2 38 mmHg; VBG pH 7.42 (7.32-7.43); VBG pO2 48 mmHg
[2020-09-01 05:31] LABS: Venous Blood Gas Refer to POC result
[2020-09-01] MEDS: propofoL 1,000 MG/100 ML VIAL 8.88 MG IVCONT (05:31)
[2020-09-01] MEDS: Pantoprazole Sodium 40 MG/10 ML VIAL IVPUSH (05:32)
[2020-09-01 05:51] LABS: Hematocrit 31.3 % (42-52); Hemoglobin 9.5 g/dl (14.0-18.0); Mean Corpuscular HGB Conc 30.4 g/dl (31.0-36.0); Mean Corpuscular Hemoglobin 27.9 pg (27.0-33.0); Mean Corpuscular Volume 91.8 fL (80-98); Mean Platelet Volume 10.9 fL (9.4-12.4); Red Blood Count 3.41 X10*6/uL (4.60-5.80)
[2020-09-01] MEDS: Dextrose 5 % 1,000 ML 150 ML IVCONT (06:03)
[2020-09-01 06:05] LABS: Platelet Count 99 X10*3/uL (160-400); WBC ABN SCTR FOR CBC 1
[2020-09-01 06:14] LABS: Band Neutrophils Percent 19 % (3-5); Lymphocytes Absolute Manual 1.2 X10*3/uL (0.6-4.8); Lymphocytes Percent Manual 7 % (20-40); Monocytes Absolute Manual 0.3 X10*3/uL (0.0-1.2); Monocytes Percent Manual 2 % (2-11); Neutrophils Absolute Manual 15.5 X10*3/uL (2.2-7.9); Neutrophils Percent Manual 72 % (45-73)
[2020-09-01 06:15] LABS: Platelet Estimate SLIGHTLY DECREASED (NORMAL); Platelet Morphology Comment NORMAL; RBC Morphology NORMAL
[2020-09-01 06:18] LABS: Alanine Aminotransferase 9 U/L (0-40); Albumin Level 3.6 g/dL (3.5-5.0); Alkaline Phosphatase 53 U/L (39-117); Anion Gap 12 (12-20); Aspartate Amino Transferase 18 U/L (5-37); Bilirubin Total 0.6 mg/dL (0.0-1.0); Blood Urea Nitrogen 22 mg/dL (9-16); Calcium 8.6 mg/dL (8.4-10.2); Carbon Dioxide 25 mmol/L (22-29); Chloride 117 mmol/L (96-108); Creatinine Clr Calc Pharmacy 82.1; Estimated Glomerular Filt Rate > 60; Glucose Random 121 mg/dL (60-115); Potassium 3.4 mmol/L (3.3-5.1); Sodium 151 mmol/L (135-145); Total Protein 6.3 g/dL (6.5-8.0)
[2020-09-01 08:32] LABS: INTERNATIONAL NORM RATIO 1.9 (0.9-1.1); Prothrombin Time 23.3 SEC (10.8-13.0)
[2020-09-01 09:02] LABS: D Dimer 16835 NG/ML
--- NOTE | 2020-09-01 10:41 | PM.CCPN ---
Subjective Subjective Date of Service: 09/01/20 Interval History: Mr Sharp was admitted to the ICU August 30 with acute respiratory failure, obtundation, and hypernatremia, after being intubated in the ED. The patient is well known to me from his admission earlier this month. The patient was serving a life sentence in penitentiary. Approximately the middle of this past July, he was released on compassionate basis bec of development of dementia. He was transferred to [facility] (a correction facility) with a [place] order for his psych meds (including divalproex and olanzapine). Their notes indicate that he has Alzheimer?s disease. PMHx also includes hypertension, dyslipidemia, depression, GERD, glaucoma, and status post appendectomy, and right total hip replacement. The patient completed the Moderna COVID vaccine this past April. The patient was sent to [facility] on 08/04/2020 from [facility] bec of worsening aggressive behavioral problems and refusing to take meds. He was discovered to have hypernatremia and dehydration and was admitted to Medicine for same. On the [place]roy at that time, the patient was ?completely demented and is not able to participate in any conversation, agitated and comabative at times, refuses to eat.? His Depakote and olanzapine were continued. He was gurgling and needed prn deep suctioning. On August 07, the patient aspirated and was transferred to ICU. Healthcare proxy wanted everything done , including a feeding tube if nec. Fortunately, the patient did well, and never really developed pneumonia. He was clearly handling his secretions imperfectly, although he was able to swallow pills ground up in nectar-thick liquids, and did pass a swallow eval for mechanically ground solids and nectar thick liquids. The patient was seen by Psychiatry and felt to be rigid. The diagnosis of neuroleptic malignant syndrome was entertained. However, his labs, and lack of any hypermetabolic syndrome, were inconsistent with NMS. The patient's Zyprexa was discontinued. The patient was seen by Neurology; Dr. Giraldo also felt that he did not have NMS. On exam here prior to discharge back to his SNF on August 18, the patient was described as ?Alert, looks comfortable, not in distress. Nonverbal, not interactive, and did not respond to any questions but was making eye contact and looking around. No focal deficits?. ?He was able to articulate words but he was difficult to understand.? ?Patient was very picky about his meals and eating partially or refuse meals... refused taking meds at times.? A feeding tube was discussed with his healthcare proxy but she felt it was not the right time to do it. Discharge medications on August 18 included: olanzapine 5 mg qd and 10 mg qhs Depakote Sprinkles 750 mg qd and 1,000 mg qhs trazodone 100 mg qhs escitalopram 20 mg qhs HISTORY OF PRESENT ILLNESS: Lab data from 08/30 sent to us from [facility] show that his Hb was 15.6, Na was 160, BUN/creat were 63/1.6. The patient was BIBA to the ED on August 30 because of obtundation, hypoxemia, and hypotension at the nursing facility. According to a nurse at the [facility], the patient hadn?t been given any meds in the last five days bec of decreased MS. In the ED, the patient was completely obtunded with pinpoint pupils. He was markedly tachypneic, with sat 90% on 15 L face mask, blood pressure 80/39, heart rate 125, and a fever of 102.3. He was intubated immediately on arrival and a central line was placed. He looked very dry. Labs in the ED were notable for a white count of 12, hemoglobin of 14 (baseline 12), PTT 21/1.8 (baseline 1.4; patient on no anticoagulation other than aspirin), sodium 166, BUN and creatinine 64/1.9 (baseline 7/0.7), bicarb 26, potassium 4.2, glucose 124, normal LFTs, albumin 3.2, normal troponin, lactic acid 1.9. Chest x-ray was clear. He was given 30 cc/kg of saline and was started on Levophed and antibiotics, and admitted to ICU for further management. Head CT was unremarkable. An abdom CT looking for a source of sepsis showed only small lower lobe pulmonary infiltrates, L>R. The patient was continued on vanco and zosyn and vol resusc w D5W. Yesterday. Chest CT showed small bibasilar posterior infiltrates w air bronchograms, as on the abdominal CT. We switched him over to PCV and got his FiO2 down to 50%. Sodium was down to 158, Creat down to 1.5. Notably, PCT was 3.4. ECHOCARDIOGRAM was notable for top-normal LV wall thickness, normal LV function, normal sized RV, 1.7 cm IVC with some inspiratory collapse. We upped his D5W to 150 cc/hr. We changed his abx to Unasyn even though it wasn?t clear that he really had clinical pneumonia. Sputum GS showed 4+ polys, 2+ yeast. Last night, his sodium was down to 155, creat was down to 1.3. Overnite his FiO2 was reduced to 35%. This morning the patient is sedated on propofol at 20ug and unresponsive, altho he grimaces to pain and has a vigorous cough to suctioning. Pupils are still pinpoint, altho he has not been given any opiates. He has been afebrile since after his arrival to the ED. Heart rate 80, sinus. Blood pressure is 107/62 on Levophed 0.04 mcg. On PCV rate 12, 12/10, 30%, RR is about 19, Vt about 500cc, Ve 8L, PIP 24cm, ETCO2 28, Sat 99%. Central venous blood gas this morning showed 7.42/38/0. There is no jugular venous distention with the head about 40 degrees. Chest has low pitched coarse BS, w normal exp phase. Soft heart tones, RRR, no murmur or gallops. The abdomen is benign, with good bowel sounds. No stool output. There is no edema. Neuro exam is nonfocal, albeit non interactive. LABORATORY DATA: As below. Notably, WBC is up to 17, hemoglobin is down to 9.5 from 13. after volume resuscitation. PT is 23/1.9. Sodium is down to 151, BUN and creatinine down to 22/1.0, bicarb up to 25, potassium down to 3.4. MICRO: Blood cultures negative so far. IMPRESSION: 1. Underlying dementia, probably severe and progressive, now reaching end stage. From what I know, this sounds like Alzheimer?s, with progressive behavioral component after years of dementia, now with swallowing difficulty leading to recurrent dehydration and hypernatremia, and aspiration. As I wrote in my note from the last admission, likely getting worse, possibly reaching a critical stage that is now starting to impact his swallowing integrity. (I.e., overmedication is not the reason for his swallowing difficulty.) 2. Obtundation on admission, likely 2? metabolic encephalopathy, 2? dehydration and hypernatremia, +/- sepsis. 3. YRAELIS 2? marked hypovolemia. With his progressive dementia and swallowing difficulty, it?s no surprise at all that the patient developed recurrent hypovolemia and hyperntremia, bec he?s simply unable to ingest the quantity of water and food necessary to keep him hydrated. I?mproving with IV hydration, as would be expected. 4. Hypernatremia 2? same. Slow correction with D5W. I changed him to D5 1/2NS this morning. 5. Bilat pulmonary infiltrates. Presumably 2? aspiration - i.e. bilat aspiration pneumonia. 6. Acute respiratory failure 2? aspiration pneumonia and metabolic encephalopathy. At this point, no need to invoke PE, tabatha with normal trop, normal BNP, and normal right heart size on echo. He?s certainly getting better on current management, and from a mechanics point of view, is extubatable, if his mental status permits it. 7. Hypotension. Tabatha with the normal lactate and unimpressive WBC, the hypotension is more likely 2? hypovolemia than sepsis, altho the latter, clearly, cannot be ruled out, tabatha with his elevated PCT. The hypotension has essentially resolved. We also give him a hydrocortisone trial, which had no effect. 8. ID: The CT scan does not show an impressive pneumonia, but if he has pneumonia, Unasyn is as good as anything else (even given that he was recently in the hospital for two weeks). He?s certainly getting better on the current regimen. 9. Coagulopathy. Probably dietary deficiency. Rx w vitamin K. 10. Nutrition. We were going to start enteral nutrition via his OGT today, but not if he?s going to be extubated. I spoke with the patient?s HCP yesterday, which is his sister Michael ([phone]). She lives in [place]. She told me that the last time she saw her brother was 8 years ago. During that time, his dementia has worsened considerably. I told her quite frankly that he is suffering from classical Alzheimer's dementia with progressing symptoms, now including behavioral difficulty, and progressing to swallowing difficulty and worsening mental status (aside from any metabolic issues), which predictably leads to dehydration and hypernatremia and aspiration, thus causing a vicious fort independence, and causing recurrent need for thigh life support. In other words, he is coming to the natural end of his life. I told her that in my opinion, there is no treatment for this, and a feeding tube is not appropriate treatment for a person at the natural end of his life. To say nothing of the fact that at best, it would prolong his life (actually his ) by only a few months. I told her that she has to come up here and see him. She said that she will make it up here. ADDENDUM at 12:50. We turned the propofol off about 2 hrs ago. He is awake, but not yet interactive. We have him on PSV. He will be extubatable if he becomes more interactive, or if that doesn?t happen (which it may very well not, given his ?bad brain?), we?ll extubate him if his agitation level forces us to. Have not yet established with the HCP what we would do if he then ?required? reintubation. Critical care time (including many minutes at and revisits to the bedside during the weaning process): 75+ min. Critical Care Time (minutes): 75 Physical Exam Vital Signs: Vital Signs: Last Vital Signs Temp 98.4 F 09/01/20 08:00 Pulse 80 09/01/20 10:00 Resp 15 09/01/20 10:00 BP 105/62 09/01/20 10:00 Pulse Ox 97 09/01/20 10:00 Body Mass Index 24.6 Objective Data Labs CBC & Chem 7: 09/01/20 05:19 09/01/20 05:19 Labs: Laboratory Results - last 24 hr 08/31/20 08/31/20 08/31/20 11:40 11:40 19:54 WBC RBC Hgb Hct MCV MCH MCHC RDW Plt Count MPV Immature Gran % (Auto) Neut % (Auto) Lymph % (Auto) [place] % (Auto) Eos % (Auto) Baso % (Auto) Lymph # (Auto) [place] # (Auto) Eos # (Auto) Baso # (Auto) Abs Immat Gran (auto) Absolute Neuts (auto) Absolute Nucleated RBC Nucleated RBC % (auto) Neutrophils % (Manual) Band Neutrophils % Lymphocytes % (Manual) Monocytes % (Manual) Abs Neuts (Manual) Lymphocytes # (Manual) Monocytes # (Manual) Platelet Estimate Plt Morphology Comment RBC Morphology PT INR D-Dimer VBG pH VBG pCO2 VBG pO2 VBG HCO3 VBG O2 Saturation VBG Base Excess Sodium 158 H 155 H Potassium 4.0 3.7 Chloride 124 H 121 H Carbon Dioxide 23 24 Anion Gap 15 14 BUN 44 H 32 H Creatinine 1.56 H 1.32 Estim Creat Clear Calc 54.7 64.7 Estimated GFR 45 55 Random Glucose 160 H 173 H Calcium 8.8 8.8 Phosphorus 2.5 L 1.8 L Magnesium 2.5 Total Bilirubin AST ALT Alkaline Phosphatase Total Protein Albumin Procalcitonin 3.45 09/01/20 09/01/20 09/01/20 05:19 05:19 05:19 WBC 17.0 H RBC 3.41 L D Hgb 9.5 L D Hct 31.3 L D MCV 91.8 MCH 27.9 MCHC 30.4 L RDW 14.0 Plt Count 99 L D MPV 10.9 Immature Gran % (Auto) Cancelled Neut % (Auto) Cancelled Lymph % (Auto) Cancelled [place] % (Auto) Cancelled Eos % (Auto) Cancelled Baso % (Auto) Cancelled Lymph # (Auto) Cancelled [place] # (Auto) Cancelled Eos # (Auto) Cancelled Baso # (Auto) Cancelled Abs Immat Gran (auto) Cancelled Absolute Neuts (auto) Cancelled Absolute Nucleated RBC 0.000 Nucleated RBC % (auto) 0.0 Neutrophils % (Manual) 72 Band Neutrophils % 19 H Lymphocytes % (Manual) 7 L Monocytes % (Manual) 2 Abs Neuts (Manual) 15.5 H Lymphocytes # (Manual) 1.2 Monocytes # (Manual) 0.3 Platelet Estimate SLIGHTLY DECREASED Plt Morphology Comment NORMAL RBC Morphology NORMAL PT INR D-Dimer VBG pH 7.42 VBG pCO2 38 VBG pO2 48 VBG HCO3 25 VBG O2 Saturation 78.0 VBG Base Excess 0.9 Sodium 151 H Potassium 3.4 Chloride 117 H Carbon Dioxide 25 Anion Gap 12 BUN 22 H Creatinine 1.04 Estim Creat Clear Calc 82.1 Estimated GFR > 60 Random Glucose 121 H Calcium 8.6 Phosphorus Magnesium Total Bilirubin 0.6 AST 18 ALT 9 Alkaline Phosphatase 53 D Total Protein 6.3 L Albumin 3.6 D Procalcitonin 09/01/20 08:18 WBC RBC Hgb Hct MCV MCH MCHC RDW Plt Count MPV Immature Gran % (Auto) Neut % (Auto) Lymph % (Auto) [place] % (Auto) Eos % (Auto) Baso % (Auto) Lymph # (Auto) [place] # (Auto) Eos # (Auto) Baso # (Auto) Abs Immat Gran (auto) Absolute Neuts (auto) Absolute Nucleated RBC Nucleated RBC % (auto) Neutrophils % (Manual) Band Neutrophils % Lymphocytes % (Manual) Monocytes % (Manual) Abs Neuts (Manual) Lymphocytes # (Manual) Monocytes # (Manual) Platelet Estimate Plt Morphology Comment RBC Morphology PT 23.3 H INR 1.9 H D-Dimer 08204 VBG pH VBG pCO2 VBG pO2 VBG HCO3 VBG O2 Saturation VBG Base Excess Sodium Potassium Chloride Carbon Dioxide Anion Gap BUN Creatinine Estim Creat Clear Calc Estimated GFR Random Glucose Calcium Phosphorus Magnesium Total Bilirubin AST ALT Alkaline Phosphatase Total Protein Albumin Procalcitonin Microbiology Microbiology Results: Microbiology 08/30/20 22:35 Sputum - Suctioned Gram Stain - Final 08/30/20 22:35 Sputum - Suctioned Sputum Culture - Preliminary Gram negative leann 08/30/20 18:27 Blood - Venous Blood Culture - Preliminary No growth after 24 hours. 08/30/20 18:24 Blood - Venous Blood Culture - Preliminary No growth after 24 hours. Quality Stroke Does the patient have a stroke diagnosis?: No VTE Prior VTE?: No VTE Risk Level:: Medical - moderate - high VTE Device Contraindication: N/A - Device Ordered VTE Drug Contraindication: N/A - Med Ordered Critical Care Time Critical Care Time (minutes): 90
[2020-09-01] MEDS: Dextrose 5 % and 0.45 % NaCl 1,000 ML 80 ML IVCONT (10:58)
[2020-09-01 12:04] LABS: Magnesium 2.2 mg/dL (1.6-2.6); Phosphorus 2.6 mg/dL (2.7-4.5)
[2020-09-01] MEDS: Potassium Chloride/H20 40 MEQ/100 ML PIGGYBACK 50 MEQ IV (13:02)
[2020-09-01] MEDS: Phytonadione (Vit K1) 10 MG in 0.9 % Sodium Chloride 50 ML 51 MG IV (13:25)
[2020-09-01] MEDS: Esmolol HCl/NaCl Iso 2,500 MG/250 ML IV.SOLN 25.44 MG IVCONT (14:05)
[2020-09-01] MEDS: Amiodarone/Dextrose 150 MG/100 ML PLAST..BAG 600 MG IV ×2 (14:45→15:54)
[2020-09-01] MEDS: propofoL 1,000 MG/100 ML VIAL 7.63 MG IVCONT (14:50)
--- NOTE | 2020-09-01 15:40 | MHC.CM.PN ---
Pt remains in ICU: recently extubated but still with ongoing complex issues: MD to have goals of care with pt's guardian/HCP Dee. CM spoke with her re: return to [facility] with end of life/comfort care. She is hoping to travel to [place] to see her brother and other family in [place] to make final decisions re: brothers care. is a bed hold at [facility]: at this time, he will return either with LTC or TRAY DELIVERY AIDE. CM to follow.
[2020-09-01] MEDS: fentaNYL citrate/PF 100 MCG/2 ML VIAL 50 MCG IVPUSH ×2 (15:45→18:25)
[2020-09-01] MEDS: Enoxaparin Sodium 80 MG/0.8 ML SYRINGE SUBCUT (18:04)
[2020-09-01 18:34] LABS: Partial Thromboplastin Time 39.7 SEC (24.1-38.0)
[2020-09-01 18:56] LABS: Anion Gap 16 (12-20); Blood Urea Nitrogen 13 mg/dL (9-16); Calcium 8.7 mg/dL (8.4-10.2); Carbon Dioxide 24 mmol/L (22-29); Chloride 118 mmol/L (96-108); Creatinine Clr Calc Pharmacy 89.9; Estimated Glomerular Filt Rate > 60; Glucose Random 110 mg/dL (60-115); Potassium 3.5 mmol/L (3.3-5.1); Sodium 154 mmol/L (135-145)
[2020-09-01 19:03] LABS: B Type Natriuretic Peptide 217 pg/mL (<100); Troponin-I High Sensitivity 17.1 ng/L (<3.5-35.0)
[2020-09-01] MEDS: propofoL 1,000 MG/100 ML VIAL 15.26 MG IVCONT (19:09)
--- NOTE | 2020-09-01 19:57 | PC.NURSE ---
Assumed care at 07:00. 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 Patient exercised on psv today, tachypnea was treated by increasing pressure support, titrated per MD with help of RT between PSV of 20 and PSV of 12; sedation was turned off at 10:45; patient's tachypnea responded well to increased pressure support, and then was titirated down when his TV would be around a liter with a targed TV of 480 ccs. Patient was initially in sinus rhythm and sinus bradycardia in 50's, and with a BBB that disappeared and then he went into atrial fibrillation after two short episodes of PAT, and the A-fib rate was 130's-150's; MD notified and new order for esmolol gtt, started at 1405, BP was soft 90's/50's and esmolol was not well tolerated after titration to 75, this was stopped per MD and two loading doses were given per MD of amiodarone without clear benefit; noted to have converted to sinus rhythm now at 20:00. Patient was also tacypneic in recurring episodes and was kept on PSV per MD, and was treated with PRN fentanyl 50 mcg doses x2 with good effect. wound care with wound nurse, blisters on bilateral heels now, left heel photographed; new DTI to right forehead photographed. Patient's D.Dimer was >16,000, ultrasound of bilat extremities positive for DVT, therapeutic lovenox started per MD, inline secretions noted to change from thick and yee to blood tinged at shift change. lung sounds dim throughout; V/Q scan ordered for morning. discussed family meeting with patient;s guardian and secondary contacts and meeting needs to be set up still as teleconference.
[2020-09-02] VITALS (35 sets, daily range): BP systolic 92–151; BP diastolic 53–94; PULSE 54–81; RESP 10–50; TEMP 36.7–37.7; O2SAT 97–100; BMI 24.5
[2020-09-02] MEDS: Ampicillin Sodium/Sulbactam Na 3 GM in 0.9 % Sodium Chloride 100 ML IV ×2 (02:28→08:27)
[2020-09-02] MEDS: propofoL 1,000 MG/100 ML VIAL 12.72 MG IVCONT (02:31)
[2020-09-02 05:34] LABS: VBG Base Excess 3.3 mmol/L; VBG HCO3 27 mmol/L (22-26); VBG pCO2 40 mmHg; VBG pH 7.44 (7.32-7.43); VBG pO2 48 mmHg
[2020-09-02] MEDS: Enoxaparin Sodium 80 MG/0.8 ML SYRINGE SUBCUT (05:41)
[2020-09-02] MEDS: Pantoprazole Sodium 40 MG/10 ML VIAL IVPUSH (05:42)
[2020-09-02 05:55] LABS: PLT CLUMP 1
[2020-09-02 05:57] LABS: Hematocrit 33.4 % (42-52); Hemoglobin 10.4 g/dl (14.0-18.0); Mean Corpuscular HGB Conc 31.1 g/dl (31.0-36.0); Mean Corpuscular Hemoglobin 28.1 pg (27.0-33.0); Mean Corpuscular Volume 90.3 fL (80-98); Mean Platelet Volume 10.8 fL (9.4-12.4); Platelet Count 112 X10*3/uL (160-400); White Blood Count 16.9 X10*3/uL (4.8-10.8)
[2020-09-02 06:03] LABS: INTERNATIONAL NORM RATIO 1.5 (0.9-1.1); Prothrombin Time 17.7 SEC (10.8-13.0)
[2020-09-02 06:18] LABS: Anion Gap 13 (12-20); Blood Urea Nitrogen 10 mg/dL (9-16); Calcium 8.4 mg/dL (8.4-10.2); Carbon Dioxide 25 mmol/L (22-29); Chloride 118 mmol/L (96-108); Creatinine Clr Calc Pharmacy 102.9; Estimated Glomerular Filt Rate > 60; Glucose Random 88 mg/dL (60-115); Magnesium 1.9 mg/dL (1.6-2.6); Potassium 3.1 mmol/L (3.3-5.1); Sodium 153 mmol/L (135-145)
[2020-09-02 06:29] LABS: Venous Blood Gas Refer to POC result
[2020-09-02 06:33] LABS: Procalcitonin 1.38 ng/mL
[2020-09-02 06:52] LABS: B Type Natriuretic Peptide 195 pg/mL (<100); Troponin-I High Sensitivity 19.1 ng/L (<3.5-35.0)
--- NOTE | 2020-09-02 07:00 | PC.NURSE ---
Patient was placed back on pressure control ventilation at 1949 (see vent settings). Patient converted back into sinus rhythm at 1957. Patient with copious amounts of clear/white oral secretions; secretions pocket in the area of the distal tongue.
[2020-09-02] MEDS: propofoL 1,000 MG/100 ML VIAL 7.63 MG IVCONT (08:26)
[2020-09-02] MEDS: Chlorhexidine Gluc Oral Rinse 15 ML MOUTHWASH BUCCAL ×3 (08:43→21:18)
--- NOTE | 2020-09-02 09:13 | CA_ITS ---
Transthoracic Echocardiogram Limited Patient (Last, First, Middle): Sadie Sharp, Gender: Male Date of : 1955 Age: 64 Procedure Date: 09/02/2020 Procedure Type: Transthoracic Echocardiogram Limited Location: ICU Height: 177.8 cm Weight: 76.2 kg BSA: 1.94 m2 Heart Rate: bpm BP: 124 / 66 mmHg Spike Machine Feeder: Referring MD: Evin Becker MD Practicing Urologist: Greg Watkins MD Symptoms: r/o PE Study Quality: Fair ECG Rhythm: Sinus Conclusions: - 1. RV size and function appear to be normal 2. Normal RV systolic pressure 3. Preserved LV systolic function Findings Left Ventricle Normal left ventricular cavity size. The left ventricular systolic function is normal. The visually estimated ejection fraction is between 55-60%. Right Ventricle Normal right ventricular cavity size and systolic function. Tricuspid Valve The right ventricular systolic pressure is 24 mmHg. There is no evidence of pulmonary hypertension. Venous The inferior vena cava is normal in size and collapses greater than 50% with inspiration. Prior Study Comparison No significant change compared to prior study dated: 08/08/2020. Measurements 2D Linear Measurements IVSd: 0.97 0.6-0.9/0.6-1.0 cm LVIDd: 5.30 3.9-5.3/4.2-5.9 cm LVIDd Index: 2.73 2.4-3.2/2.2-3.1 cm/m2 LVIDs: 3.61 2.0-3.6 cm LVPWd: 0.96 0.7-1.1 cm LV Mass: 237.57 67-162/88-224 g LV Mass Index: 122.46 43-95/49-115 g/m2 Tricuspid Valve TR Pk Darnell: 2.30 TR Pk Grad: 21.00 RA Press: 3.00 RVSP: 24.00 Updated in Other Vendor System with Status of Final Greg Watkins MD electronically signed on 09/02/2020 1:28:48 PM with status of Final
[2020-09-02] MEDS: fentaNYL citrate/PF 100 MCG/2 ML VIAL 50 MCG IVPUSH ×3 (09:58→18:51)
--- NOTE | 2020-09-02 10:24 | MHC.CLN ---
Addendum entered by Brittani Bowen, JANKI 09/02/20 11:50: DISCUSSED WITH MD AFTER ORIGINAL F/U NOTE: AGREE TO START TF PROMOTE AT MAX GOAL RATE 80CC/HR WITH 300CC FREE WATER Q SHIFT TO PROVIDE 1920KCALS (2506KCALS WITH SEDATION; 30KCALS/KG), 120G (1.4G/KG), 2510CC TOTAL WATER FROM FORMULA AND FLUSHES (30CC/KG) MONITOR TOLERANCE, RESIDUALS AND LYTES Original Note: F/U PT IS INTUBATED AND SEDATED; FAMILIAR FROM PREVIOUS ADMISSION DISCUSSED WITH MD AT ROUNDS; PT NPO DAY 4 AWAITING FAMILY MEETING RE: GOALS OF CARE PT TO START FREE WATER FLUSHES 300CC Q 4HRS PROVIDES 1800CC WATER NOTED NEW BLISTER ON HEEL AND DTI R FOREHEAD PER NSG IF TF NEEDED; RECOMMEND PROMOTE AT MAX GOAL RATE 80CC/HR WITH 300CC FREE WATER Q SHIFT TO PROVIDE 1920KCALS (2506KCALS WITH SEDATION; 30KCALS/KG), 120G (1.4G/KG), 2510CC TOTAL WATER FROM FORMULA AND FLUSHES (30CC/KG) MONITOR TOLERANCE, RESIDUALS AND LYTES
--- NOTE | 2020-09-02 10:24 | HE.PHANOTE ---
Pharmacy Note - Enoxparin Dosing Second dose of 80 mg enxoaparin held for 09/02 and medication will be restarted at lower dose (60 mg) q12h at provider request due to bloody, frothy sputum.
[2020-09-02] MEDS: Lactulose 20 GM/30 ML SOLUTION 40 GM OG-TUBE ×3 (10:35→21:17)
[2020-09-02] MEDS: Sodium,Potassium Phosphates POWD.PACK 2 PACKET OG-TUBE ×2 (10:40→16:08)
[2020-09-02] MEDS: Magnesium Sulfate/D5W 1 GM/100 ML PIGGYBACK IV (10:40)
--- NOTE | 2020-09-02 10:57 | MHC.CM.PN ---
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 CM left message for HCP/sister Dee. Awaiting call back at this time. Pt is a bed hold at [facility]. CM to follow
[2020-09-02 13:42] LABS: Glucose Urine UA NEG (NEG); Leukocyte Esterase Urine NEG (NEG); Nitrite Urine NEG (NEG); PH 5.5 (5.0-8.0); Specific Gravity - Urine >= 1.030 (1.005-1.025); Urine Blood 3+ (NEG); Urine Ketones NEG (NEG); Urine Protein TRACE MG/DL (NEG-TRACE)
[2020-09-02 13:43] LABS: Appearance Urine HAZY; Color Urine DARK YELLOW
[2020-09-02 13:52] LABS: RBC Urine 50-75 /HPF (0); Squamous Epithelial Cell Urine TRACE /LPF; WBC Urine 0-2 /HPF (0-4)
--- NOTE | 2020-09-02 15:28 | P.PNCC_ITS ---
Critical Care Event Note Summary Date of Service: 09/01/20 Code activated: No Narrative: We turned the propofol off this morning, and it was off for over five hours. His eyes were open, he was clearly awake, and moving all 4?s, but he was 100% noninteractive, nonpurposeful, and had no response to command and no response to confrontation. We had him on PSV down to PS 10/30%/+5 with good tidal vols and minute volume and Sat?s up to 100%, but he became intermittently agitated and did not maintain a consistent resp pattern. I was in the room over a dozen times during the day trying to get him into a regular resp pattern. Towards the end of the afternoon, we had to put him back on propofol. Then he went into AFib. We gave him esmolol, then two loading doses of amiodarone, which slowed but did not convert him. Finally about 8pm, we put him back on PCV and he thereafter converted to SR. Additionally, in the afternoon we did a duplex scan of his LEs bec of his high DDimer level. The duplex scan showed a left leg DVT involving the left superficial femoral, popliteal and posterior tibial veins. No right leg DVT. We started him on full dose Lovenox. I repeated his echo at the bedside. RV still looked normal size and fxn. IVC measured 2.3 cm with maybe 20% insp collapse. I stopped his IVFs. A repeat troponin was 17, and repeat BNP was 217 was 27 the day before. The question was whether we needed to rule out a PE. Given that we were ant icoagulating him anyway, it didn?t seem important, given the normal right heart and normal troponin. Hard what to make of the increased BNP, but that could have been 2? the fluids he got (increased IVC) and the new afib. Additional Critical care time: 50 min. Critical Care Time (minutes): 50
[2020-09-02] MEDS: Nystatin Oral Susp 500,000 UNIT/5 ML ORAL.SUSP 100000 UNIT BUCCAL ×2 (15:46→21:18)
[2020-09-02] MEDS: Potassium Chloride Packet 20 MEQ PACKET 40 MEQ OG-TUBE ×2 (15:47→17:26)
--- NOTE | 2020-09-02 16:14 | P.PNCC_ITS ---
Subjective Subjective Date of Service: 09/02/20 Interval History: Mr. Sharp was admitted to the ICU August 30 with acute respiratory failure, obtundation, and hypernatremia, after being intubated in the ED. The patient is well known to me from his admission earlier this month. The pa alessio was serving a life sentence in [facility]. Approximately the middle of this past July, he was released on compassionate basis bec of development of dementia. He was transferred to [facility] (a long-term facility) with a [place] order for his psych meds (including divalproex and olanzapine). Their notes indicate that he has Alzheimer?s disease. PMHx also includes hypertension, dyslipidemia, depression, GERD, glaucoma, and status post appendectomy, and right total hip replacement. The patient completed the Moderna COVID vaccine this past April. The patient was sent to [facility] on 08/04/2020 from [facility] bec of worsening aggressive behavioral problems and refusing to take meds. He was discovered to have hypernatremia and dehydration and was admitted to Medicine for same. On the [place]roy at that time, the patient was ?completely demented and is not able to participate in any conversation, agitated and comabative at times, refuses to eat.? His Depakote and olanzapine were continued. He was gurgling and needed prn deep suctioning. On August 07, the patient aspirated and was transferred to ICU. Healthcare proxy wanted everything done , including a feeding tube if nec. Fortunately, the patient did well, and never really developed pneumonia. He was clearly handling his secretions imperfectly, although he was able to swallow pills ground up in nectar-thick liquids, and did pass a swallow eval for mechanically ground solids and nectar thick liquids. The patient was seen by Psychiatry and felt to be rigid. The diagnosis of neuroleptic malignant syndrome was entertained. However, his labs, and lack of any hypermetabolic syndrome, were inconsistent with NMS. The patient's Zyprexa was discontinued. The patient was seen by Neurology; Dr. Giraldo also felt that he did not have NMS. On exam here prior to discharge back to his SNF on August 18, the patient was de scribed as ?Alert, looks comfortable, not in distress. Nonverbal, not interactive, and did not respond to any questions but was making eye contact and looking around. No focal deficits?. ?He was able to articulate words but he was difficult to understand.? ?Patient was very picky about his meals and eating partially or refuse meals... refused taking meds at times.? A feeding tube was discussed with his healthcare proxy but she felt it was not the right time to do it. Discharge medications on August 18 included: olanzapine 5 mg qd and 10 mg qhs Depakote Sprinkles 750 mg qd and 1,000 mg qhs trazodone 100 mg qhs escitalopram 20 mg qhs HISTORY OF PRESENT ILLNESS: Lab data from 08/30 sent to us from [facility] show that his Hb was 15.6, Na was 160, BUN/creat were 63/1.6. The patient was BIBA to the ED on August 30 because of obtundation, hypoxemia, and hypotension at the nursing facility. According to a nurse at the SNF, the patient hadn?t been given any meds in the last five days bec of decreased MS. In the ED, the patient was completely obtunded with pinpoint pupils. He was m arkedly tachypneic, with sat 90% on 15 L face mask, blood pressure 80/39, heart rate 125, and a fever of 102.3. He was intubated immediately on arrival and a central line was placed. He looked very dry. Labs in the ED were notable for a white count of 12, hemoglobin of 14 (baseline 12), PTT 21/1.8 (baseline 1.4; patient on no anticoagulation other than aspirin), sodium 166, BUN and creatinine 64/1.9 (baseline 7/0.7), bicarb 26, potassium 4.2, glucose 124, normal LFTs, albumin 3.2, normal troponin, lactic acid 1.9. Chest x-ray was clear. He was given 30 cc/kg of saline and was started on Levophed and antibiotics, and admitted to ICU for further management. Head CT was unremarkable. An abdom CT looking for a source of sepsis showed only small lower lobe pulmonary infiltrates, L>R. The patient was continued on vanco and zosyn and vol resusc w D5W. Chest CT the following day showed small bibasilar posterior infiltrates w air bronchograms, similar to the abdominal CT. Sputum GS showed 4+ polys, 2+ yeast. We changed his Abx to Unasyn for presumed aspiration pneumonitis. We got his FiO2 down to 50%. Sodium was down to 158, Creat down to 1.5. Notably, PCT was 3.4. ECHOCARDIOGRAM was notable for top-normal LV wall thickness, normal LV function, normal sized RV, 1.7 cm IVC with some inspiratory collapse. We upped his D5W to 150 cc/hr. That night, his sodium was down to 155, creat was down to 1.3. Yesterday his FiO2 was reduced to 35%. We turned the popofol off and it remained off for at least five hours. His eyes were open, he was clearly awake, and moving all 4?s, but he was 100% noninteractive, nonpurposeful, and had no response to command and no response to confrontation. We had him on PSV down to PS 10/30%/+5 with good tidal vols and minute volume and Sat?s up to 100%, but he became intermittently agitated and did not maintain a consistent smooth, adequ ate resp pattern. Towards the end of the afternoon, we had to put him back on propofol bec of agitation that was too compromising to maintain adequate tidal volumes on even high levels of PSV. Then he went into AFib. We gave him esmolol, then two loading doses of amiodarone, which slowed but did not convert him. He finally converted back to SR after we put him back on PCV at about 8pm Additionally, in the afternoon yesterday we did a duplex scan of his LEs bec of his high DDimer level. The duplex scan showed a left leg DVT involving the left superficial femoral, popliteal and posterior tibial veins. No right leg DVT. We started him on full dose Lovenox. I repeated his echo at the bedside. RV still looked normal size and fxn. IVC measured 2.3 cm with maybe 20% insp collapse. I stopped his IVFs. A repeat troponin was 17, and repeat BNP was 217 vs 27 the day before. The question was whether we needed to rule out a PE. Given that we were anticoagulating him anyway, it didn?t seem important, given the normal right heart and normal troponin. I?ve been waiting all day for the patient?s HCP to call us back so I could discuss with her how to proceed from here in terms of weaning from the ventilator and in terms of his DVT and poss PE. She didn?t call us back and finally I reached her about 3pm and she said that she could not decide anything now, she would just like us to keep him alive until she gets here, which will be in maybe 4 days. Currently, he?s on propofol at 25ug unresponsive, with pinpoint pupils (no opiates). He has been afebrile since after his arrival to the ICU. Heart rate 71, sinus. Blood pressure is 105/63 off Levophed. On PCV rate 12, 14/5, 30%, RR is 14, Vt 560cc, Ve 7.8L, PIP 19cm, ETCO2 32, Sat 100%. Central venous blood gas this morning showed 7.44/40/+3. There is no jugular venous distention with the head about 40 degrees. Chest has clear low pitched BS, w normal exp phase. RRR, normal S1 and S2, no murmur, might have an S4 gallop. The abdomen is benign, with good bowel sounds. No stool output. There is no edema. Neuro exa m is nonfocal, albeit non interactive. LABORATORY DATA: As below. Notably, WBC is steady. INR is down to 1.5 after Vit K. Sodium is up to 153, BUN and creatinine down to 10/0.8, potassium down to 3.1, even after repletion. MICRO: Blood cultures negative so far. Sputum GS from 08/30 showed 4+ polys, 2+ yeast, and grew out 2+ sensitive pseudomonas. Repeat sputum Gram stain today again showed 4+polys 2+ yeast. The sputum today is thick yee and tenacious. ECHOCARDIOGRAM by the tech today, with me interpreting at the bedside: RV is top-normal size, with excellent function. IVC is top-normal size, 2.1cm, with 50% inspiratory collapse. IMPRESSION: 1. Underlying dementia, probably severe and progressive, now reaching end stage. From the history, it sounds like Alzheimer?s, with progressive behavioral component after years of dementia, now with swallowing difficulty leading to recurrent dehydration and hypernatremia, and aspiration. As I wrote in my note from the last admission, likely getting worse, possibly reaching a critical stage (i.e., overmedication is not the reason for his swallowing difficulty.) 2. Obtundation on admission, likely 2? metabolic encephalopathy, 2? dehydration, hypernatremia, and aspiration, +/- sepsis. 3. YARELIS 2? marked hypovolemia. With his progressive dementia and swallowing difficulty, it?s no surprise at all that the patient developed recurrent hypovolemia and hypernatremia, bec he?s simply unable to ingest the quantity of water and food necessary to keep him hydrated. Resolved with IV hydration, as would be expected. 4. Hypernatremia 2? same. Slow correction with D5W. We now have him on free water, 300 cc q6h. 5. Bilat pulmonary infiltrates. Presumably 2? aspiration - i.e. bilat aspiration pneumonia. 6. Acute respiratory failure 2? aspiration pneumonia and metabolic encephalopathy. From a mechanics point of view, he?s extubatable, but his mental status was insufficient yesterday. We?ll try again tomorrow morning. 7. ID: The CT scan does not show an impressive pneumonia. His oxygenation certainly got better on the current Unasyn regimen. With the negative CXR and the almost normal A-a gradient now, it?s hard to say that he has any pneumonia at this time. The gram stain suggests that the pseudomonas growing from the prior sputum spec is a colonizer. But since he clearly has a tracheobronchitis, I?m willing to give him Abx. We?ll d/c the Unasyn and put him on cefepime for 3 days. 8. Coagulopathy. Probably dietary deficiency. Improved with vitamin K. 9. Nutrition. Start tube feeds today. In my conversation with his sister Michael ([phone]) today, I made it clear to her that his respiratory difficulty was secondary to his mental functioning, and it was not clear to me that he would ever be able to be liberated safely from the endotracheal tube. Furthermore, I also indicated that I was not sure he was ever going to be able to eat again. I emphasized again that his current condition was the natural progression of dementia at the end of life. She just wants us to keep him alive until she is able to visit, hopefully within the next 4 days. Critical care time: 70 min. Critical Care Time (minutes): 70 Physical Exam Vital Signs: Vital Signs: Last Vital Signs Temp 99.0 F 09/02/20 15:55 Pulse 58 09/02/20 15:55 Resp 14 09/02/20 15:55 BP 125/70 09/02/20 15:55 Pulse Ox 100 09/02/20 15:55 Body Mass Index 24.5 Objective Data Labs CBC & Chem 7: 09/02/20 05:20 09/02/20 05:20 Labs: Laboratory Results - last 24 hr 09/01/20 09/01/20 09/01/20 17:55 17:55 17:55 WBC RBC Hgb Hct MCV MCH MCHC RDW Plt Count MPV Absolute Nucleated RBC Nucleated RBC % (auto) PT INR APTT 39.7 H VBG pH VBG pCO2 VBG pO2 VBG HCO3 VBG O2 Saturation VBG Base Excess Sodium 154 H Potassium 3.5 Chloride 118 H Carbon Dioxide 24 Anion Gap 16 BUN 13 Creatinine 0.95 Estim Creat Clear Calc 89.9 Estimated GFR > 60 Random Glucose 110 Calcium 8.7 Phosphorus Magnesium Troponin I High Sens 17.1 B-Natriuretic Peptide 217 H Procalcitonin Urine Color Urine Appearance Urine pH Ur Specific [place] Urine Protein Urine Glucose (UA) Urine Ketones Urine Blood Urine Nitrite Ur Leukocyte Esterase Urine RBC Urine WBC Ur Squamous Epith Cells Urine Bacteria 09/02/20 09/02/20 09/02/20 05:20 05:20 05:20 WBC 16.9 H RBC 3.70 L Hgb 10.4 L Hct 33.4 L MCV 90.3 MCH 28.1 MCHC 31.1 RDW 14.0 Plt Count 112 L MPV 10.8 Absolute Nucleated RBC 0.000 Nucleated RBC % (auto) 0.0 PT 17.7 H D INR 1.5 H APTT VBG pH VBG pCO2 VBG pO2 VBG HCO3 VBG O2 Saturation VBG Base Excess Sodium Potassium Chloride Carbon Dioxide Anion Gap BUN Creatinine Estim Creat Clear Calc Estimated GFR Random Glucose Calcium Phosphorus Magnesium Troponin I High Sens B-Natriuretic Peptide Procalcitonin 1.38 Urine Color Urine Appearance Urine pH Ur Specific [place] Urine Protein Urine Glucose (UA) Urine Ketones Urine Blood Urine Nitrite Ur Leukocyte Esterase Urine RBC Urine WBC Ur Squamous Epith Cells Urine Bacteria 09/02/20 09/02/20 09/02/20 05:20 05:20 05:28 WBC RBC Hgb Hct MCV MCH MCHC RDW Plt Count MPV Absolute Nucleated RBC Nucleated RBC % (auto) PT INR APTT VBG pH 7.44 H VBG pCO2 40 VBG pO2 48 VBG HCO3 27 H VBG O2 Saturation 78.0 VBG Base Excess 3.3 Sodium 153 H Potassium 3.1 L Chloride 118 H Carbon Dioxide 25 Anion Gap 13 BUN 10 Creatinine 0.83 Estim Creat Clear Calc 102.9 Estimated GFR > 60 Random Glucose 88 Calcium 8.4 Phosphorus 2.0 L Magnesium 1.9 Troponin I High Sens 19.1 B-Natriuretic Peptide 195 H Procalcitonin Urine Color Urine Appearance Urine pH Ur Specific [place] Urine Protein Urine Glucose (UA) Urine Ketones Urine Blood Urine Nitrite Ur Leukocyte Esterase Urine RBC Urine WBC Ur Squamous Epith Cells Urine Bacteria 09/02/20 13:33 WBC RBC Hgb Hct MCV MCH MCHC RDW Plt Count MPV Absolute Nucleated RBC Nucleated RBC % (auto) PT INR APTT VBG pH VBG pCO2 VBG pO2 VBG HCO3 VBG O2 Saturation VBG Base Excess Sodium Potassium Chloride Carbon Dioxide Anion Gap BUN Creatinine Estim Creat Clear Calc Estimated GFR Random Glucose Calcium Phosphorus Magnesium Troponin I High Sens B-Natriuretic Peptide Procalcitonin Urine Color DARK YELLOW Urine Appearance HAZY Urine pH 5.5 Ur Specific [place] >= 1.030 H Urine Protein TRACE Urine Glucose (UA) NEG Urine Ketones NEG Urine Blood 3+ H Urine Nitrite NEG Ur Leukocyte Esterase NEG Urine RBC 50-75 H Urine WBC 0-2 Ur Squamous Epith Cells TRACE Urine Bacteria NONE Microbiology Microbiology Results: Microbiology 09/02/20 13:33 Sputum - Suctioned Gram Stain - Final 08/30/20 22:35 Sputum - Suctioned Gram Stain - Final 08/30/20 22:35 Sputum - Suctioned Sputum Culture - Final Pseudomonas aeruginosa 08/30/20 18:27 Blood - Venous Blood Culture - Preliminary No growth after 48 hours. 08/30/20 18:24 Blood - Venous Blood Culture - Preliminary No growth after 48 hours. Quality Stroke Does the patient have a stroke diagnosis?: No VTE Prior VTE?: No VTE Risk Level:: Medical - moderate - high VTE Device Contraindication: N/A - Device Ordered VTE Drug Contraindication: N/A - Med Ordered Critical Care Time Critical Care Time (minutes): 60
[2020-09-02] MEDS: propofoL 1,000 MG/100 ML VIAL 10.18 MG IVCONT ×2 (17:21→22:19)
--- NOTE | 2020-09-02 18:15 | PM.CCN ---
Critical Care Event Note Summary Date of Service: 09/02/20 Code activated: No Narrative: I just had a one hour telephone conference call with the patient's sister Michael (the healthcare proxy) and the patient's other sister per Monika ([phone]). I went over the details of the patient's medical condition --i.e. his end-stage Alzheimer's disease with progression into behavioral difficulty, difficulty swallowing, recurrent aspiration, and further mental deterioration. My main message was that he is at the end of life, that he is currently on life support, and even though he was not actively dying, because his heart is healthy, I was doubtful that he would be able to live without life support. but he is not brain . I told them that I did not think he would survive this hospitalization. They do not want him tortured. My understanding is that Michael is going to come up to see him as soon as she can, that we will then take him off life support, and she is going to arrange for transport of his body back to [place]. I told them that I did not anticipate that we would have any problems keeping him alive until she gets here. However in the event that something unexpected and catastrophic happened and his heart stopped, we would not do CPR or cardiopulmonary resuscitation. They understood that that meant DNR. They accepted that. I will write no CPR orders. We will also not undertake any further invasive or heroic management. Critical Care Time (minutes): 60
[2020-09-02] MEDS: cefEPime HCl 1 GM in 0.9 % Sodium Chloride 50 ML IV (18:50)
--- NOTE | 2020-09-02 19:29 | PC.NURSE ---
assumed care at 07:00; Patient moves all extremities but not purposefully, no commands followed, positive cough and gag; patient with pupils at 2 mm, sluggish, unable to effectively downtitrate propofol without vent dysynchrony and increased work of breathing with abdominal muscle and accessory muscle use; PRN fentanyl 50 mcg with good effect. Patient does overbreathe vent; tachypnea with some frequency rates in 20's and as high as 50 this morning, and PRN fentanyl with good effect. Patient with #8 ETT, 25 cm noemi, PC settings were changed today: currently rate is 10 (lowered from 12); Pi is 12 (lowered from 14); peep is 5; FiO2 30%; tidal volumes about 480-557; minute volumes 7-10. Patient SpO2 97-100%. Inline secretions were yee, tenacious, blood tinged and frothy this morning, MD notified and lovenox held, to restart in morning at lowered 60 mg dose; secretions inline continued to be thick and tenacious, pink tinged--discussed with MD and new order for sputum cx collected, and reviewed and patient started on Cefepime; unasyn discontinued, Tmax 99.5. Urine cx also collected wrt patient's urine having contained sediment yesterday. chlorhexidine therapy ordered for mouth; patient observed to have some crusting brown material about tongue, md in to visualize and new order for nystatin. Levophed titrated to off this afternoon per MD and well tolerated. Started TF today, Promote increased from 20 to 30, well tolerated. Started Lactulose today related to no BM since admission, and no results after two doses, to stop after one BM per MD. Supplemental phos and K given today per Emar with some adjustments to timing made in conjunction with MD and pharmacy.
[2020-09-02] MEDS: fentaNYL citrate/PF 100 MCG/2 ML VIAL IVPUSH (22:44)
[2020-09-03] VITALS (40 sets, daily range): BP systolic 76–126; BP diastolic 46–80; PULSE 60–88; RESP 10–32; TEMP 36.7–38; O2SAT 92–100; BMI 24.7
[2020-09-03] LABS: OBS Int Ctl Valid YES; OBS1 POSITIVE (NEGATIVE)
[2020-09-03] MEDS: cefEPime HCl 1 GM in 0.9 % Sodium Chloride 50 ML IV ×3 (01:21→17:10)
[2020-09-03] MEDS: propofoL 1,000 MG/100 ML VIAL 10.18 MG IVCONT ×2 (05:00→12:09)
[2020-09-03] MEDS: Enoxaparin Sodium 60 MG/0.6 ML SYRINGE SUBCUT ×2 (05:01→17:10)
[2020-09-03] MEDS: Pantoprazole Sodium 40 MG/10 ML VIAL IVPUSH (05:14)
[2020-09-03 05:25] LABS: Hematocrit 33.9 % (42-52); Hemoglobin 10.2 g/dl (14.0-18.0); Mean Corpuscular HGB Conc 30.1 g/dl (31.0-36.0); Mean Corpuscular Hemoglobin 27.4 pg (27.0-33.0); Mean Corpuscular Volume 91.1 fL (80-98); Mean Platelet Volume 11.2 fL (9.4-12.4); Platelet Count 101 X10*3/uL (160-400); Red Blood Count 3.72 X10*6/uL (4.60-5.80); Red Cell Distribution Width 14.3 % (11.0-16.0); White Blood Count 10.3 X10*3/uL (4.8-10.8)
[2020-09-03] MEDS: fentaNYL citrate/PF 100 MCG/2 ML VIAL IVPUSH ×2 (05:35→22:41)
--- NOTE | 2020-09-03 06:05 | PC.NURSE ---
CARE ASSUMED 23:15...REMAINS TUBED/VENTED...PCV: AC 10/IP 12/FIO2 30%/PEEP 5...RR12-14...Ve 7 L/M...ETCOS 36-39...PROPOFOL 20 MCG/KG/MIN...EYES OPEN..NO TRACKING..WEAKLY MARTIN BUT DOES NOT FOLLOW ANY COMMANDS...(+) GAG/COUGH....TUBE FEEDS 30 CC/HR...ASPIRATED 400ml AT 12AM...ICU PA AWARE...FEEDS HELD 12AM-3AM...RESTARTED 10 CC/HR AND GIVEN H20 300ml FLUSH...INCONTINANT COPIOUS AMOUNT LIQUIED BROWN STOOL 12AM...STOOL= GUIAC (+)...PA AWARE...RECTAL TUBE PLACE...RT SUCTIONED PATIENT THIS AM FOR THICK YELLOW-WHITE SPUTUM VIA ETT..TACHYPNEIC..RR 30'S WITH LOW TV/Ve...medicated with prn fentanyl with rr 10-12 BUT IMPROVED TV/Ve...CURRANT Ve 6-7 L/M...NSR..NO ECTOPY OVERNIGHT
[2020-09-03 06:06] LABS: Alanine Aminotransferase 18 U/L (0-40); Albumin Level 2.9 g/dL (3.5-5.0); Alkaline Phosphatase 92 U/L (39-117); Anion Gap 14 (12-20); Aspartate Amino Transferase 31 U/L (5-37); Bilirubin Total 0.6 mg/dL (0.0-1.0); Blood Urea Nitrogen 12 mg/dL (9-16); Calcium 8.4 mg/dL (8.4-10.2); Carbon Dioxide 27 mmol/L (22-29); Chloride 115 mmol/L (96-108); Creatinine Clr Calc Pharmacy 106.8; Estimated Glomerular Filt Rate > 60; Glucose Random 86 mg/dL (60-115); Potassium 3.4 mmol/L (3.3-5.1); Sodium 153 mmol/L (135-145); Total Protein 5.8 g/dL (6.5-8.0)
[2020-09-03] MEDS: Nystatin Oral Susp 500,000 UNIT/5 ML ORAL.SUSP 100000 UNIT BUCCAL ×3 (06:56→20:08)
[2020-09-03] MEDS: Chlorhexidine Gluc Oral Rinse 15 ML MOUTHWASH BUCCAL ×3 (06:56→20:08)
[2020-09-03 10:32] LABS: Magnesium 2.2 mg/dL (1.6-2.6); Phosphorus 2.1 mg/dL (2.7-4.5)
[2020-09-03] MEDS: Dextrose 5 % 1,000 ML 75 ML IVCONT ×2 (10:33→22:23)
[2020-09-03 10:44] LABS: INTERNATIONAL NORM RATIO 1.4 (0.9-1.1); Prothrombin Time 15.8 SEC (9.9-13.0)
--- NOTE | 2020-09-03 13:42 | PC.NURSE ---
1322 Initiated sedation vacation from Propofol drip, previously running between 15-20 mcg/kg/min. MD at bedside to assess neurological status. Patient remains unable to follow commands or make purposeful movements. Patient became tachypnic, RR 28, and asynchronous with vent. HR and BP also increased to 83 and 108/71from baseline on sedation of HR in the 60s and SBP in the low 90s. Remains of pressors. Total sedation vacation time of approximately 10 min. Propofol drip restarted per MD due to patients intolerance.
[2020-09-03] MEDS: fentaNYL citrate/PF 100 MCG/2 ML VIAL 50 MCG IVPUSH ×2 (14:01→21:12)
--- NOTE | 2020-09-03 14:36 | PM.CCPN ---
Subjective Subjective Date of Service: 09/03/20 Interval History: Mr Sharp was admitted to the ICU August 30 with acute respiratory failure, obtundation, and hypernatremia, after being intubated in the ED. The patient is well known to me from his admission earlier this month. The patient was serving a life sentence in [facility]. Approximately the middle of this past July, he was released on compassionate basis bec of development of dementia. He was transferred to [facility] (a retirement facility) with a [place] order for his psych meds (including divalproex and olanzapine). Their notes indicate that he has Alzheimer?s disease. PMHx also includes hypertension, dyslipidemia, depression, GERD, glaucoma, and status post appendectomy, and right total hip replacement. The patient completed the Moderna COVID vaccine this past April. [place] [facility] [place] [facility] bec of worsening aggressive behavioral problems and refusing to take meds. He was discovered to have hypernatremia and dehydration and was admitted to Medicine for same. On the [place] at that time, the patient was ?completely demented and is not able to participate in any conversation, agitated and comabative at times, refuses to eat.? His Depakote and olanzapine were continued. He was gurgling and needed prn deep suctioning. On August 07, the patient aspirated and was transferred to ICU. Healthcare proxy wanted everything done , including a feeding tube if nec. Fortunately, the patient did well, and never really developed pneumonia. He was clearly handling his secretions imperfectly, although he was able to swallow pills ground up in nectar-thick liquids, and did pass a swallow eval for mechanically ground solids and nectar thick liquids. The patient was seen by Psychiatry and felt to be rigid. The diagnosis of neuroleptic malignant syndrome was entertained. However, his labs, and lack of any hypermetabolic syndrome, were inconsistent with NMS. The patient's Zyprexa was discontinued. The patient was seen by Neurology; Dr. Giraldo also felt that he did not have NMS. On exam here prior to discharge back to his SNF on August 18, the patient was described as ?Alert, looks comfortable, not in distress. Nonverbal, not interactive, and did not respond to any questions but was making eye contact and looking around. No focal deficits?. ?He was able to articulate words but he was difficult to understand.? ?Patient was very picky about his meals and eating partially or refuse meals... refused taking meds at times.? A feeding tube was discussed with his healthcare proxy but she felt it was not the right time to do it. Discharge medications on August 18 included: olanzapine 5 mg qd and 10 mg qhs Depakote Sprinkles 750 mg qd and 1,000 mg qhs trazodone 100 mg qhs escitalopram 20 mg qhs HISTORY OF PRESENT ILLNESS: Lab data from 08/30 sent to us from [facility] show that his Hb was 15.6, Na was 160, BUN/creat were 63/1.6. The patient was BIBA to the ED on August 30 because of obtundation, hypoxemia, and hypotension at the nursing facility. According to a nurse at the [facility], the patient hadn?t been given any meds in the last five days bec of decreased MS. In the ED, the patient was completely obtunded with pinpoint pupils. He was markedly tachypneic, with sat 90% on 15 L face mask, blood pressure 80/39, heart rate 125, and a fever of 102.3. He was intubated immediately on arrival and a central line was placed. He looked very dry. Labs in the ED were notable for a white count of 12, hemoglobin of 14 (baseline 12), PTT 21/1.8 (baseline 1.4; patient on no anticoagulation other than aspirin), sodium 166, BUN and creatinine 64/1.9 (baseline 7/0.7), bicarb 26, potassium 4.2, glucose 124, normal LFTs, albumin 3.2, normal troponin, lactic acid 1.9. Chest x-ray was clear. He was given 30 cc/kg of saline and was started on Levophed and antibiotics, and admitted to ICU for further management. Head CT was unremarkable. An abdom CT looking for a source of sepsis showed only small lower lobe pulmonary infiltrates, L>R. The patient was continued on vanco and zosyn and vol resusc w D5W. Chest CT the following day showed small bibasilar posterior infiltrates w air bronchograms, similar to the abdominal CT. Sputum GS showed 4+ polys, 2+ yeast. We changed his Abx to Unasyn for presumed aspiration pneumonitis. We got his FiO2 down to 50%. Sodium was down to 158, Creat down to 1.5. Notably, PCT was 3.4. ECHOCARDIOGRAM was notable for top-normal LV wall thickness, normal LV function, normal sized RV, 1.7 cm IVC with some inspiratory collapse. We upped his D5W to 150 cc/hr. That night, his sodium was down to 155, creat was down to 1.3. Since then, his FiO2 has been able to be decreased progressively, down to room air this afternoon. Sodium is down to 153. Creat down to 0.8. On September 01, we did the first prolonged propofol holiday. The popofol was off for at least five hours. His eyes were open, he was clearly awake, and moving all 4?s, but he was 100% noninteractive, nonpurposeful, and had no response to command and no response to confrontation. We had him on PSV down to PS 5cm/30%/+5, with good tidal vols and minute volume and Sat?s up to 100%, but he became intermittently agitated and did not maintain a consistent smooth, adequate resp pattern. Towards the end of the afternoon, we had to put him back on propofol bec agitation was too compromising to maintain adequate tidal volumes on even high levels of PSV. Then he went into AFib. We gave him esmolol, then two loading doses of amiodarone, which slowed but did not convert him. He finally converted back to SR after we put him back on PCV at about 8pm Additionally, we did a duplex scan of his LEs on September 01 bec of his high DDimer level. The duplex scan showed a left leg DVT involving the left superficial femoral, popliteal and posterior tibial veins. No right leg DVT. We started him on full dose Lovenox. I repeated his echo at the bedside. RV still looked normal size and fxn. IVC top normal size with some insp collapse. A repeat troponin was 17, and repeat BNP was 217 vs 27 the day before. The question was whether we needed to rule out a PE. Given that we were anticoagulating him anyway, it didn?t seem important, given the normal right heart and normal troponin. Did a propofol holiday again today. After 10 min, he was awake, but completely absent cortical function, 100% noninteractive, no response to confrontation, same as before. No change control specialist half an hour, then his breathing became chaotic, so we put him back on the propofol. HR 81, BP 136/71. He?s been afebrile since his arrival to the ICU. On PC rate 10, 12/5, 21%, RR is 13, Vt 600cc, Ve 7.7L, PIP 17cm, ETCO2 35, Sat 94%. There is no jugular venous distention with the head about 40 degrees. Chest has low pitched BS, w normal exp phase. RRR, normal S1 and S2, no murmur or gallops. The abdomen is benign, with good bowel sounds. Good brown stool output. There is no edema. Neuro exam is nonfocal, albeit non interactive. LABORATORY DATA: As below. Notably, WBC is down to 10 today. INR down further after vit K. Sodium steady at 153, BUN and creatinine steady at 12/0.8, potassium 3.4, even after repletion. MICRO: Blood cultures 08/30 negative. Sputum GS from yesterday showed 4+ polys, 2+ yeast, culture neg so far. ECHOCARDIOGRAM by the [facility] yesterday, with me interpreting at the bedside: RV is top-normal size, with excellent function. IVC is top-normal size, 2.1cm, with 50% inspiratory collapse. IMPRESSION: 1. Underlying dementia, probably severe and progressive, now reaching end stage. From the history, it sounds like Alzheimer?s, with progressive behavioral component after years of dementia, now end stage with swallowing difficulty leading to recurrent dehydration and hypernatremia, and aspiration. (Overmedication is clearly not the reason for his swallowing difficulty.) 2. Obtundation on admission, likely 2? metabolic encephalopathy, 2? dehydration, hypernatremia, and aspiration, +/- sepsis. 3. YARELIS 2? marked hypovolemia. With his progressive dementia and swallowing difficulty, it?s no surprise at all that the patient developed recurrent hypovolemia and hypernatremia, bec he?s simply unable to ingest the quantity of water and food necessary to keep him hydrated. Resolved with IV hydration, as would be expected. 4. Hypernatremia 2? same. Slow correction with D5W. We now have him on free water per Gtube, 300 cc q6h. I added D5W infusion today. 5. Bilat pulmonary infiltrates. Presumably 2? aspiration - i.e. bilat aspiration pneumonia. 6. Acute respiratory failure 2? aspiration pneumonia and metabolic encephalopathy. From a mechanics point of view, he?s extubatable, but his mental status was insufficient yesterday. We?ll try again tomorrow morning. 7. ID: The CT scan does not show an impressive pneumonia. His oxygenation certainly got better on the current Unasyn regimen. With the negative CXR and the almost normal A-a gradient now, it?s hard to say that he has any pneumonia at this time. The gram stain suggested that the pseudomonas growing from the prior sputum spec is a colonizer. Since he clearly had a tracheobronchitis and an elevated WBC, I d/c?d the Unasyn and put him on cefepime yesterday. That may be the reason for the drop in his WBC. I?ll d/c the cefepime after 3 days. 8. Coagulopathy. Probably dietary deficiency. Improved with vitamin K. 9. Metabolic. Replete K and phos. 10. Nutrition. Started tube feeds yesterday. Yesterday I had a one hour telephone conference call with the patient's sister Michael (the healthcare proxy) and the patient's other sister Gris ([phone]). I went over the details of the patient's medical condition --i.e. his end-stage Alzheimer's disease with progression into behavioral difficulty, difficulty swallowing, recurrent aspiration, and further mental deterioration. My main message was that he is at the end of life, that he is currently on life support, and even though he is not actively dying because his heart is healthy, I was doubtful that he would be able to live without life support. But he is not brain . I told them that I did not think he would survive this hospitalization. They do not want him tortured. My understanding is that Michael is going to come up to see him as soon as she can, then we will then take him off life support, and she is going to arrange for transport of his body back to [place]. I told them that I did not anticipate that we would have any problems keeping him alive until she gets here, which she thinks will be within 4-5 days. However in the event that something unexpected and catastrophic happened and his heart stopped, we would not do CPR or cardiopulmonary resuscitation. They understood that that meant DNR. They accepted that. I have written no CPR orders. We will also not undertake any further invasive or heroic management. Critical care time: 50 min. Critical Care Time (minutes): 50 Physical Exam Vital Signs: Vital Signs: Last Vital Signs Temp 98.6 F 09/03/20 13:53 Pulse 83 09/03/20 13:53 Resp 25 H 09/03/20 14:01 BP 98/61 09/03/20 13:53 Pulse Ox 94 09/03/20 13:40 Body Mass Index 24.7 Objective Data Labs CBC & Chem 7: 09/03/20 05:10 09/03/20 05:10 Labs: Laboratory Results - last 24 hr 09/02/20 09/03/20 09/03/20 23:34 05:10 05:10 WBC 10.3 RBC 3.72 L Hgb 10.2 L Hct 33.9 L MCV 91.1 MCH 27.4 MCHC 30.1 L RDW 14.3 Plt Count 101 L MPV 11.2 Absolute Nucleated RBC 0.000 Nucleated RBC % (auto) 0.0 PT INR Sodium 153 H Potassium 3.4 Chloride 115 H Carbon Dioxide 27 Anion Gap 14 BUN 12 Creatinine 0.80 Estim Creat Clear Calc 106.8 Estimated GFR > 60 Random Glucose 86 Calcium 8.4 Phosphorus 2.1 L Magnesium 2.2 Total Bilirubin 0.6 AST 31 D ALT 18 Alkaline Phosphatase 92 D Total Protein 5.8 L Albumin 2.9 L Stool Occult Blood POSITIVE 09/03/20 10:11 WBC RBC Hgb Hct MCV MCH MCHC RDW Plt Count MPV Absolute Nucleated RBC Nucleated RBC % (auto) PT 15.8 H INR 1.4 H Sodium Potassium Chloride Carbon Dioxide Anion Gap BUN Creatinine Estim Creat Clear Calc Estimated GFR Random Glucose Calcium Phosphorus Magnesium Total Bilirubin AST ALT Alkaline Phosphatase Total Protein Albumin Stool Occult Blood Microbiology Microbiology Results: Microbiology 09/02/20 13:33 Sputum - Suctioned Gram Stain - Final 09/02/20 13:33 Sputum - Suctioned Sputum Culture - Preliminary Normal so far. 08/30/20 22:35 Sputum - Suctioned Gram Stain - Final 08/30/20 22:35 Sputum - Suctioned Sputum Culture - Final Pseudomonas aeruginosa 08/30/20 18:27 Blood - Venous Blood Culture - Preliminary No growth after 48 hours. 08/30/20 18:24 Blood - Venous Blood Culture - Preliminary No growth after 48 hours. Quality Stroke Does the patient have a stroke diagnosis?: No VTE Prior VTE?: No VTE Risk Level:: Medical - moderate - high VTE Device Contraindication: N/A - Device Ordered VTE Drug Contraindication: N/A - Med Ordered
[2020-09-03] MEDS: Sodium,Potassium Phosphates POWD.PACK 2 PACKET PO ×2 (15:24→20:08)
[2020-09-03] MEDS: propofoL 1,000 MG/100 ML VIAL 7.63 MG IVCONT (21:21)
[2020-09-04] VITALS (45 sets, daily range): BP systolic 79–138; BP diastolic 52–76; PULSE 15–80; RESP 10–30; TEMP 36.9–37.6; O2SAT 90–98; BMI 25.6
[2020-09-04] MEDS: cefEPime HCl 1 GM in 0.9 % Sodium Chloride 50 ML IV ×3 (01:06→17:31)
--- NOTE | 2020-09-04 04:01 | PC.NURSE ---
Addendum entered by Perry Mari RN 09/04/20 05:04: ET Co2 around 35. urine outputs around 40-75 cc/hour, concentrated aurea Original Note: Assumed care at 19:00. Patient continues to be sedated on propofol; uptitirated doserate to 15 from 10 mcg/lg/min related to patient's continual restlessness, moving all extremities, pulling hard against bilateral upper limb restraints; considerable ventilator dysynchrony in conjunction with nonverbal signs of pain rating 8/10 required administration of PRN fentanyl 50 mcg, and subsequently 100mcg, with good effect. Patient continues open eyes both to voice as well as spontaneously at times; reacts to light and deep pain; guards when light shined in eyes; appears to track the speaker at times; overbreathes ventilator slightly; positive cough and gag; pupils are at 2 mm and appear to be pinpoint/sluggishly reactive to light. Continues with #8.0 ETT; 26 cm at the lower lip (appears 25 cm at the teeth), and to be ventilated on PC settings: Rate 10; inspiratory pressure: 12; Peep 5.0; FiO2: 21%; Tidal volumes around 550; minute volumes around 7-8, RR around 12-14; SPO2 around 92-93%; Oral secretions copious thin clear to white; inline secretions small to none thick tenacious and yee; lung sounds much clearer, dim at bases, clear throughout otherwise. Sinus rhythm with occasional PACs, BP was soft, and levophed was restarted, then titrated down from 0.08 to 0.05, and lower doserates were not tolerated. Patient continues to tolerate tube feeding well, residuals 50-25 ccs; able to increase rate as per orders to 60 cc/hour. Phosphate repleted via OGT. Patient continues to stool moderate amount of liquid brown stool and continues to have rectal tube in place for management; good bowel sounds. Core temperature Tmax 100.4 at start of shift, down to 99.5; patient continues on IV Cefepime related to pseudomonas in recent sputum culture and ? of aspiration pneumonia.
[2020-09-04] MEDS: Enoxaparin Sodium 60 MG/0.6 ML SYRINGE SUBCUT ×2 (05:14→17:30)
[2020-09-04 05:32] LABS: VBG HCO3 28 mmol/L (22-26); VBG pCO2 39 mmHg; VBG pH 7.47 (7.32-7.43); VBG pO2 47 mmHg
[2020-09-04 05:41] LABS: PLT CLUMP 1
[2020-09-04 05:43] LABS: Hematocrit 31.9 % (42-52); Hemoglobin 10.1 g/dl (14.0-18.0); Mean Corpuscular HGB Conc 31.7 g/dl (31.0-36.0); Mean Corpuscular Hemoglobin 27.8 pg (27.0-33.0); Mean Corpuscular Volume 87.9 fL (80-98); Mean Platelet Volume 10.8 fL (9.4-12.4); Platelet Count 111 X10*3/uL (160-400); Red Blood Count 3.63 X10*6/uL (4.60-5.80); White Blood Count 8.9 X10*3/uL (4.8-10.8)
[2020-09-04 06:06] LABS: Anion Gap 10 (12-20); Blood Urea Nitrogen 12 mg/dL (9-16); Calcium 7.9 mg/dL (8.4-10.2); Carbon Dioxide 28 mmol/L (22-29); Chloride 109 mmol/L (96-108); Creatinine Clr Calc Pharmacy 108.1; Estimated Glomerular Filt Rate > 60; Glucose Random 144 mg/dL (60-115); Phosphorus 1.9 mg/dL (2.7-4.5); Potassium 2.9 mmol/L (3.3-5.1); Sodium 144 mmol/L (135-145)
[2020-09-04] MEDS: fentaNYL citrate/PF 100 MCG/2 ML VIAL IVPUSH ×9 (06:38→23:55)
[2020-09-04] MEDS: propofoL 1,000 MG/100 ML VIAL 7.63 MG IVCONT (06:39)
[2020-09-04] MEDS: Potassium Chloride/H20 40 MEQ/100 ML PIGGYBACK 50 MEQ IV (06:39)
[2020-09-04 07:14] LABS: Venous Blood Gas Refer to POC result
[2020-09-04] MEDS: Nystatin Oral Susp 500,000 UNIT/5 ML ORAL.SUSP 100000 UNIT BUCCAL ×3 (08:52→20:39)
[2020-09-04] MEDS: Chlorhexidine Gluc Oral Rinse 15 ML MOUTHWASH BUCCAL ×3 (08:53→20:39)
[2020-09-04] MEDS: Potassium Phosphate 30 MMOL in 0.9 % Sodium Chloride 500 ML 85 MMOL IV (08:53)
--- NOTE | 2020-09-04 10:30 | PC.NURSE ---
Pt intubated/sedated, on propofol 15mcg/kg/min RASS -1, occasionally opens eyes spontaneously and MARTIN, does not obey commands, does not track, positive cough/gag. Vent settings ACPC Rate 10, Ipressure 12, PEEP 5, FiO2 21%, Vt 500-600, Ve 5-8L/min, ETCO2 31-36, SaO2 94% drops to 88% when asynch w/ vent, fentanyl 100mcg given x2 this shift with positive results for WOB. Lungs clear anteriorly, dim bases, mild exp rhonchi throughout. Levo running at 0.03mcg/kg/min, off at 0851, BP down to 79/52, back on at 0930 at 0.03, BP now 94/66, U/O 45-100ml/hr aurea urine in bauman. NSR 80s occasional PVC, no edema. Stage II to bilat buttocks healed/resolved. DTI to forhead from pulse ox cord, adjusted so cord is free. Right heel blister intact covered w/ foam, left heel blister drianed and pink foam C/D/I. Rectal tube in place draining scant liquid brown stool. Promote at 80ml/hr, 60ml residual. PHOS 1.9 K+ 2.9. 40mEq IV K finished infusing post lab draw, 40mEq K added OG tube 1500, KPHOS 30mmol IV started. x1 set blood cult positive for G+, aware, on cefepime. Bed locked and in lowest position, bed alarm on.
[2020-09-04] MEDS: fentaNYL citrate/PF 100 MCG/2 ML VIAL 50 MCG IVPUSH (10:52)
[2020-09-04] MEDS: Potassium Chloride Packet 20 MEQ PACKET 40 MEQ G-TUBE (13:55)
--- NOTE | 2020-09-04 14:50 | P.PNCC_ITS ---
Subjective Subjective Date of Service: 09/04/20 Interval History: Mr Sharp was admitted to the ICU August 30 with acute respiratory failure, obtundation, and hypernatremia, after being intubated in the ED. The patient is well known to me from his admission earlier this month. The pat ient was serving a life sentence in longterm. Approximately the middle of this past July, he was released on compassionate basis bec of development of dementia. He was transferred to [facility] (a half-way facility) with a [place] order for his psych meds (including divalproex and olanzapine). Their notes indicate that he has Alzheimer?s disease. PMHx also includes hypertension, dyslipidemia, depression, GERD, glaucoma, and status post appendectomy, and right total hip replacement. The patient completed the Moderna COVID vaccine this past April. The patient was sent to [facility] on 08/04/[address] [facility] bec of worsening aggressive behavioral problems and refusing to take meds. He was discovered to have hypernatremia and dehydration and was admitted to Medicine for same. On the monroy at that time, the patient was ?completely demented and is not able to participate in any conversation, agitated and comabative at times, refuses to eat.? His Depakote and olanzapine were continued. He was gurgling and needed prn deep suctioning. On August 07, the patient aspirated and was transferred to ICU. Healthcare proxy wanted everything done , including a feeding tube if nec. Fortunately, the patient did well, and never really developed pneumonia. He was clearly handling his secretions imperfectly, although he was able to swallow pills ground up in nectar-thick liquids, and did pass a swallow eval for mechanically ground solids and nectar thick liquids. The patient was seen by Psychiatry and felt to be rigid. The diagnosis of neuroleptic malignant syndrome was entertained. However, his labs, and lack of any hypermetabolic syndrome, were inconsistent with NMS. The patient's Zyprexa was discontinued. The patient was seen by Neurology; Dr. Giraldo also felt that he did not have NMS. On exam here prior to discharge back to his SNF on August 18, the patient was yoselin cribed as ?Alert, looks comfortable, not in distress. Nonverbal, not interactive, and did not respond to any questions but was making eye contact and looking around. No focal deficits?. ?He was able to articulate words but he was difficult to understand.? ?Patient was very picky about his meals and eating partially or refuse meals... refused taking meds at times.? A feeding tube was discussed with his healthcare proxy but she felt it was not the right time to do it. Discharge medications on August 18 included: olanzapine 5 mg qd and 10 mg qhs Depakote Sprinkles 750 mg qd and 1,000 mg qhs trazodone 100 mg qhs escitalopram 20 mg qhs HISTORY OF PRESENT ILLNESS: Lab data from 08/[address] [facility] show that his Hb was 15.6, Na was 160, BUN/creat were 63/1.6. The patient was BIBA to the ED on August 30 because of obtundation, hypoxemia, and hypotension at the nursing facility. According to a nurse at the SNF, the patient hadn?t been given any meds in the last five days bec of decreased MS. In the ED, the patient was completely obtunded with pinpoint pupils. He was ma rkedly tachypneic, with sat 90% on 15 L face mask, blood pressure 80/39, heart rate 125, and a fever of 102.3. He was intubated immediately on arrival and a central line was placed. He looked very dry. Labs in the ED were notable for a white count of 12, hemoglobin of 14 (baseline 12), PTT 21/1.8 (baseline 1.4; patient on no anticoagulation other than aspirin), sodium 166, BUN and creatinine 64/1.9 (baseline 7/0.7), bicarb 26, potassium 4.2, glucose 124, normal LFTs, albumin 3.2, normal troponin, lactic acid 1.9. Chest x-ray was clear. He was given fluids, Levophed, and antibiotics, and admitted to ICU for further management. Head CT was unremarkable. An abdom CT looking for a source of sepsis showed only small lower lobe pulmonary infiltrates, L>R. The patient was continued on vanco and zosyn and vol resusc w D5W. Chest CT the following day showed small bibasilar posterior infiltrates w air bronchograms. Sputum GS showed 4+ polys, 2+ yeast. Abx were changed to Unasyn for presumed aspiration pneumonitis. We got his FiO2 down to 50%. Sodium was down to 158, Creat down to 1.5, PCT was 3.4. ECHOCARDIOGRAM was notable for top-normal LV wall thickness, normal LV function, normal sized RV, 1.7 cm IVC with some inspiratory collapse. His sodium, creat, and FiO2 have come down progressively. On September 01, we did a prolonged propofol holiday. The popofol was off for at least five hours. His eyes were open, he was clearly awake, and moving all 4?s, but he was 100% nonin teractive, nonpurposeful, and had no response to command and no response to confrontation. We had him on PSV down to PS 5cm/30%/+5, with good tidal vols and minute volume and Sat?s up to 100%, but he became intermittently agitated and did not maintain a consistent smooth, adequate resp pattern. Towards the end of the afternoon, we had to put him back on propofol bec agitation impaired his ventilatory pattern. Then he went into AFib. We gave him esmolol, then two loading doses of amiodarone, which slowed but did not convert him. He finally converted back to SR after we put him back on PCV. Additionally, we did a duplex scan of his LEs on September 01 bec of his high DDimer level. The duplex scan showed a left leg DVT involving the left superficial femoral, popliteal and posterior tibial veins. No right leg DVT. We started him on full dose Lovenox. I repeated his echo at the bedside. RV still looked normal size and fxn. IVC top normal size with some insp collapse. A repeat troponin was 17, and repeat BNP was 217 vs 27 the day before. The question was whether we needed to rule out a PE. Given that we were anticoagulating him anyway, it didn?t seem important, given the normal right heart and normal troponin. The next morning he had bloody tracheal secretions, so we cut the L ovenox to 60 mg bid. We repeated the propofol holidays daily. After about 10 min, he would become awake, but with absent cortical function, 100% noninteractive, no response to confrontation. Today when I did the propofol holiday, he woke up after about 20 min, and this time seemed to track to a limited degree on the right side, but not on the left (i.e. there seems to be some focality). He also was responding to confrontation most of the time. He?s still noninteractive. Tmax 100.4? last night. HR now 73, BP 96/63, off Levophed. On PCV rate 10, 12/5, 21%, RR is 13, Vt 600cc, Ve 7.7L, PIP 17cm, ETCO2 35, Sat 96%. CVBG this morning showed 7.47/39/+5. There is no jugular venous distention with the head about 40 degrees. The abdomen is benign, with good bowel sounds. Good brown stool output. There is no edema. LABORATORY DATA: As below. Notably, WBC down further to 8.9 today. Sodium down to 144 and giving him a liter of D5W over 24hrs, in addition to free water via tube feed. BUN and creatinine steady at 12/0.8, potassium down to 2.9 and phos down to 1.9, even after repletion. MICRO: Blood cultures from the ED on 08/30 were just reported back (i.e. at 5 days), one anaerobic bottle positive for GPR, probably propionibacterium species. Sputum GS from 09/02 showed 4+ polys, 2+ yeast, culture neg. Blood cultures from the ED ECHOCARDIOGRAM by the [facility] on 09/02 to r/o PE: RV is top-normal size, with excellent function. IVC is top-normal size, 2.1cm, with 50% inspiratory collapse. IMPRESSION: 1. Underlying dementia, probably severe and progressive, now reaching end stage. From the history, it sounds like Alzheimer?s, with progressive behavioral component after years of dementia, now end stage with swallowing difficulty leading to recurrent dehydration and hypernatremia, and aspiration. (Overmedication is clearly not the reason for his swallowing difficulty.) The patient had a negative CT on admission. Today for the first time, he?s showing some localizing symptoms. We?ll send him for a repeat CT. 2. Obtundation on admission: Likely 2? metabolic encephalopathy, 2? dehydration, hypernatremia, and aspiration, +/- sepsis. 3. YARELIS on admission: 2? marked hypovolemia. With his progressive dementia and swallowing difficulty, it?s no surprise at all that the patient developed recurrent hypovolemia and hypernatremia, bec he?s simply unable to ingest the quantity of water and food necessary to keep him hydrated. Resolved with IV hydration, as would be expected. 4. Hypernatremia: 2? same. Slow correction with D5W. We now have him on free water per Gtube. D/C the D5W infusion today. 5. Bilat pulmonary infiltrates. Presumably 2? aspiration - i.e. bilat aspiration pneumonia. 6. Acute respiratory failure 2? aspiration pneumonia and metabolic encephalopathy. From a mechanics point of view, he?s extubatable, but his mental status has been insufficient. 7. ID: The CT scan does not show an impressive pneumonia. His oxygenation certainly got better on the Unasyn, but his WBC did not improve. With the negative CXR and the almost normal A-a gradient now, it?s hard to say that he has any pneumonia at this time. But bec of the sputum that grew pseudomonas, albeit likely a colonizer, we put him on cefepime bec of the white count. Sub sequent to that, his WBC immediately normalized. I wrote him for a 3-day course of the cefepime, which will end tonite. 8. Coagulopathy. Probably 2? dietary deficiency. Improved with vitamin K. 9. Metabolic. Replete K and phos. 10. Nutrition. On tube feeds. On September 02, I had a one hour telephone conference call with the patient's sister Michael (the healthcare proxy) and the patient's other sister Gris ([phone]). I went over the details of the patient's medical condition --i.e. his end-stage Alzheimer's disease with progression into behavioral difficulty, difficulty swallowing, recurrent aspiration, and further mental deterioration. My main message was that he is at the end of life, that he is currently on life support, and even though he is not actively dying because his heart is healthy, I was doubtful that he would be able to live without life support. But he is not brain . I told them that I did not think he would survive this hospitalization. They do not want him tortured. My understanding is that Michael is going to come up to see him as soon as she can, then we will then take him off life support, and she is going to arrange for transport of his body back to [place]. I told them that I did not anticipate that we would have any problems keeping him alive until she gets here, which she thinks will be within 4-5 days. However in the event that something unexpected and catastrophic happened and his heart stopped, we would not do CPR or cardiopulmonary resuscitation. They understood that that meant DNR. They accepted that. I have written no CPR orders. We will also not undertake any further invasive or heroic management. Critical care time: 60 min. Critical Care Time (minutes): 60 Physical Exam Vital Signs: Vital Signs: Last Vital Signs Temp 99.5 F 09/04/20 14:00 Pulse 72 09/04/20 14:00 Resp 12 09/04/20 14:00 BP 96/63 09/04/20 14:00 Pulse Ox 96 09/04/20 14:00 Body Mass Index 25.6 Objective Data Labs CBC & Chem 7: 09/04/20 05:25 09/04/20 05:25 Labs: Laboratory Results - last 24 hr 09/04/20 09/04/20 09/04/20 05:23 05:25 05:25 WBC 8.9 RBC 3.63 L Hgb 10.1 L Hct 31.9 L MCV 87.9 MCH 27.8 MCHC 31.7 RDW 14.0 Plt Count 111 L MPV 10.8 Absolute Nucleated RBC 0.000 Nucleated RBC % (auto) 0.0 VBG pH 7.47 H VBG pCO2 39 VBG pO2 47 VBG HCO3 28 H VBG O2 Saturation 77.0 VBG Base Excess 5.0 Sodium 144 Potassium 2.9 L Chloride 109 H Carbon Dioxide 28 Anion Gap 10 L BUN 12 Creatinine 0.79 Estim Creat Clear Calc 108.1 Estimated GFR > 60 Random Glucose 144 H D Calcium 7.9 L Phosphorus 1.9 L Microbiology Microbiology Results: Microbiology 08/30/20 18:24 Blood - Venous Blood Culture - Preliminary 09/02/20 13:33 Sputum - Suctioned Gram Stain - Final 09/02/20 13:33 Sputum - Suctioned Sputum Culture - Final 08/30/20 22:35 Sputum - Suctioned Gram Stain - Final 08/30/20 22:35 Sputum - Suctioned Sputum Culture - Final Pseudomonas aeruginosa 08/30/20 18:27 Blood - Venous Blood Culture - Preliminary No growth after 48 hours. Quality Stroke Does the patient have a stroke diagnosis?: No VTE Prior VTE?: No VTE Risk Level:: Medical - moderate - high VTE Device Contraindication: N/A - Device Ordered VTE Drug Contraindication: N/A - Med Ordered Critical Care Time Critical Care Time (minutes): 60
[2020-09-04] MEDS: propofoL 1,000 MG/100 ML VIAL 10.18 MG IVCONT (16:10)
[2020-09-04] MEDS: propofoL 1,000 MG/100 ML VIAL 20.35 MG IVCONT (20:44)
[2020-09-05] VITALS (32 sets, daily range): BP systolic 96–182; BP diastolic 54–90; PULSE 63–84; RESP 10–28; TEMP 37.3–38.4; O2SAT 92–100; BMI 25.7
[2020-09-05] MEDS: propofoL 1,000 MG/100 ML VIAL 20.35 MG IVCONT (02:33)
[2020-09-05] MEDS: fentaNYL citrate/PF 100 MCG/2 ML VIAL IVPUSH (04:44)
[2020-09-05 05:22] LABS: VBG Base Excess 5.9 mmol/L; VBG HCO3 30 mmol/L (22-26); VBG pCO2 42 mmHg; VBG pH 7.46 (7.32-7.43); VBG pO2 52 mmHg
[2020-09-05 05:55] LABS: Alanine Aminotransferase 64 U/L (0-40); Albumin Level 2.5 g/dL (3.5-5.0); Alkaline Phosphatase 142 U/L (39-117); Anion Gap 11 (12-20); Aspartate Amino Transferase 75 U/L (5-37); Bilirubin Total 0.6 mg/dL (0.0-1.0); Blood Urea Nitrogen 12 mg/dL (9-16); Carbon Dioxide 28 mmol/L (22-29); Chloride 111 mmol/L (96-108); Estimated Glomerular Filt Rate > 60; Glucose Random 108 mg/dL (60-115); Magnesium 1.8 mg/dL (1.6-2.6); Phosphorus 2.8 mg/dL (2.7-4.5); Potassium 3.7 mmol/L (3.3-5.1); Sodium 146 mmol/L (135-145); Total Protein 5.5 g/dL (6.5-8.0)
[2020-09-05] MEDS: Enoxaparin Sodium 60 MG/0.6 ML SYRINGE SUBCUT ×2 (06:21→16:43)
[2020-09-05] MEDS: Albumin Human 25 % 100 ML IV ×2 (06:23→08:37)
[2020-09-05 06:38] LABS: Venous Blood Gas Refer to POC result
[2020-09-05 08:20] LABS: Procalcitonin 0.83 ng/mL
--- NOTE | 2020-09-05 08:32 | PM.CCPN ---
Subjective Subjective Date of Service: 09/05/20 Interval History: 64-year-old male resident in a chronic facility for advanced dementia underlying hypertensive with possible seizure disorder history and mood disorder on an atypical antipsychotic presented with acute hypoxemic respiratory failure with altered mental status and hypotension clearly septic manifestations following a recent hospitalization so presumptively nosocomial infection and turned out to be Pseudomonas with a broad sensitivity profile who remains intubated at this point and CT scan did show bilateral but left greater than right lower lobe consolidation Critical Care Time (minutes): 40 Physical Exam Vital Signs: Vital Signs: Last Vital Signs Temp 99.5 F 09/05/20 08:00 Pulse 67 09/05/20 08:00 Resp 10 L 09/05/20 08:00 BP 105/60 09/05/20 08:00 Pulse Ox 99 09/05/20 08:00 Body Mass Index 25.7 Const: Other: initial hypernatremia is now corrected and that was probably part of the of the mental status issue nonfocal neurologically but sedated and intubated abdomen soft no organomegaly good bowel sounds tolerating feedings chest with coarse bilateral rhonchi cardiac exam with normal S1 and S2 with good bilateral carotid upstrokes and no neck vein distension Objective Data Labs CBC & Chem 7: 09/04/20 05:25 09/05/20 05:10 Labs: Laboratory Results - last 24 hr 09/05/20 09/05/20 09/05/20 05:10 05:10 05:14 VBG pH 7.46 H VBG pCO2 42 VBG pO2 52 VBG HCO3 30 H VBG O2 Saturation 83.0 VBG Base Excess 5.9 Sodium 146 H Potassium 3.7 D Chloride 111 H Carbon Dioxide 28 Anion Gap 11 L BUN 12 Creatinine 0.70 Estim Creat Clear Calc 122.0 Estimated GFR > 60 Random Glucose 108 Calcium 8.0 L Phosphorus 2.8 Magnesium 1.8 Total Bilirubin 0.6 AST 75 H ALT 64 H Alkaline Phosphatase 142 H D Total Protein 5.5 L Albumin 2.5 L Procalcitonin 0.83 Microbiology Microbiology Results: Microbiology 08/30/20 18:27 Blood - Venous Blood Culture - Preliminary 08/30/20 18:24 Blood - Venous Blood Culture - Preliminary 09/02/20 13:33 Sputum - Suctioned Gram Stain - Final 09/02/20 13:33 Sputum - Suctioned Sputum Culture - Final 08/30/20 22:35 Sputum - Suctioned Gram Stain - Final 08/30/20 22:35 Sputum - Suctioned Sputum Culture - Final Pseudomonas aeruginosa Progress Note: A&P Assessment and plan (1) Acute on chronic respiratory failure with hypoxia: Status: Acute (2) Aspiration pneumonitis: Status: Acute (3) Acute metabolic encephalopathy: Status: Acute Assessment and Plan: the plan is to switch him to cefepime and increase his oral water intake and might attempt if his FiO2 comes down to 40% and minute ventilation below 10 L a sedation holiday and if cognitive function appears adequate will look into ventilator weaning trial Quality Stroke Does the patient have a stroke diagnosis?: No VTE Prior VTE?: No VTE Risk Level:: Medical - moderate - high VTE Device Contraindication: N/A - Device Ordered VTE Drug Contraindication: N/A - Med Ordered
[2020-09-05] MEDS: Chlorhexidine Gluc Oral Rinse 15 ML MOUTHWASH BUCCAL ×3 (08:42→20:19)
[2020-09-05] MEDS: cefEPime HCl 2 GM in 0.9 % Sodium Chloride 50 ML IV ×2 (08:44→20:19)
[2020-09-05] MEDS: propofoL 1,000 MG/100 ML VIAL 15.26 MG IVCONT (08:48)
[2020-09-05] MEDS: Nystatin Oral Susp 500,000 UNIT/5 ML ORAL.SUSP 100000 UNIT BUCCAL ×3 (09:10→20:19)
[2020-09-05] MEDS: Divalproex Sodium Sprinkles 125 MG CAP.DR.SPR 750 MG OG-TUBE ×2 (13:18→20:20)
[2020-09-05] MEDS: propofoL 1,000 MG/100 ML VIAL 10.18 MG IVCONT ×2 (14:24→23:07)
--- NOTE | 2020-09-05 18:40 | PC.NURSE ---
T max 101.1, VSS, levophed gtt titrated off per emar. Pt sedated on propofol, opens eyes to voice, unable to follow commands, positive cough/gag. Vent setting remain unchanged, moderate thick yee secretions inline and orally. suctioned several times throughout shift. SR on tele, tube feed at max rate of 80ml/hr, water flushes given. Pt repo q2hr, prevalon mattress, skin care and bath given.
[2020-09-06] VITALS (27 sets, daily range): BP systolic 83–116; BP diastolic 32–75; PULSE 71–88; RESP 10–31; TEMP 36.6–38.1; O2SAT 96–100; BMI 23.6
[2020-09-06 05:23] LABS: VBG Base Excess 5.6 mmol/L; VBG HCO3 29 mmol/L (22-26); VBG pCO2 37 mmHg; VBG pH 7.49 (7.32-7.43); VBG pO2 43 mmHg
[2020-09-06] MEDS: Enoxaparin Sodium 60 MG/0.6 ML SYRINGE SUBCUT ×2 (05:27→16:35)
[2020-09-06] MEDS: propofoL 1,000 MG/100 ML VIAL 10.18 MG IVCONT (05:27)
--- NOTE | 2020-09-06 05:33 | PC.NURSE ---
brighter neurologically than past encounters. awakens to voice. opens eyes/does not focus or track. squeezes left hand to command. moves feet weakly bilat. transorally intubated and mechanically ventilated on pressure control mode/rate 10 bpm/ insp pressure 14/fio2 21%/peep 5cm. breath sounds have been congested with rhonchi. although abundance of sputum has decreased over night. suctioned for thick yee/yellow phelgm. ecg displays sr. hemodynamically stable. low grade temp 99-100. aabdomen round/soft/+bowel sounds. ogt to feeding pump infusing fs promote at 80ml/hr. ogt placement is verified over epigastrium with instilled volume of air. bauman catheter patent and draining conc aurea urine. u/o 80-100ml/hr.
[2020-09-06 05:39] LABS: MANUAL DIFF FLAG NO
[2020-09-06 05:43] LABS: Basophils Percent Auto 0.1 % (0-2); Eosinophils Absolute Auto 0.1 X10*3/uL (0.0-0.4); Eosinophils Percent Auto 1.2 % (0-4); Hematocrit 29.1 % (42-52); Hemoglobin 9.4 g/dl (14.0-18.0); Imm Gran Abs Auto 0.27 X10*3/uL (0.00-0.03); Imm Gran Pct Auto 3.7 % (0.0-0.4); Lymphocytes Absolute Auto 1.1 X10*3/uL (1.2-4.9); Lymphocytes Percent Auto 15.1 % (20-40); Mean Corpuscular HGB Conc 32.3 g/dl (31.0-36.0); Mean Corpuscular Hemoglobin 28.3 pg (27.0-33.0); Mean Corpuscular Volume 87.7 fL (80-98); Mean Platelet Volume 10.6 fL (9.4-12.4); Monocytes Absolute Auto 0.8 X10*3/uL (0.1-1.2); Monocytes Percent Auto 10.4 % (2-11); Neutrophils Absolute Auto 5.1 X10*3/uL (2.0-8.3); Neutrophils Percent Auto 69.5 % (45-73); Platelet Count 156 X10*3/uL (160-400); Red Blood Count 3.32 X10*6/uL (4.60-5.80); Red Cell Distribution Width 14.1 % (11.0-16.0); White Blood Count 7.3 X10*3/uL (4.8-10.8)
[2020-09-06 05:46] LABS: Venous Blood Gas Refer to POC result
[2020-09-06 05:50] LABS: INTERNATIONAL NORM RATIO 1.3 (0.9-1.1); Prothrombin Time 14.6 SEC (9.9-13.0)
[2020-09-06 05:52] LABS: Partial Thromboplastin Time 32.8 SEC (24.1-38.0)
[2020-09-06 06:08] LABS: B Type Natriuretic Peptide 35 pg/mL (<100)
[2020-09-06 06:10] LABS: Alanine Aminotransferase 43 U/L (0-40); Alkaline Phosphatase 111 U/L (39-117); Anion Gap 11 (12-20); Aspartate Amino Transferase 40 U/L (5-37); Bilirubin Direct 0.3 mg/dL (0.0-0.5); Bilirubin Total 0.5 mg/dL (0.0-1.0); Blood Urea Nitrogen 11 mg/dL (9-16); Calcium 8.5 mg/dL (8.4-10.2); Carbon Dioxide 28 mmol/L (22-29); Chloride 109 mmol/L (96-108); Estimated Glomerular Filt Rate > 60; Glucose Random 97 mg/dL (60-115); Magnesium 1.8 mg/dL (1.6-2.6); Phosphorus 2.2 mg/dL (2.7-4.5); Potassium 3.8 mmol/L (3.3-5.1); Sodium 144 mmol/L (135-145); Total Protein 5.8 g/dL (6.5-8.0)
[2020-09-06] MEDS: Divalproex Sodium Sprinkles 125 MG CAP.DR.SPR 750 MG OG-TUBE (08:38)
[2020-09-06] MEDS: Nystatin Oral Susp 500,000 UNIT/5 ML ORAL.SUSP 100000 UNIT BUCCAL (08:38)
[2020-09-06] MEDS: Chlorhexidine Gluc Oral Rinse 15 ML MOUTHWASH BUCCAL (08:38)
[2020-09-06] MEDS: cefEPime HCl 2 GM in 0.9 % Sodium Chloride 50 ML IV ×2 (08:38→19:58)
--- NOTE | 2020-09-06 10:01 | MHC.CLN ---
F/U PT'S TF CURRENTLY ON HOLD R/T NIMBEX DRIP PT PENDING EXTUBATION TODAY PER MD DURING ROUNDS PT WAS RECEIVING PROMOTE AT MAX GOAL RATE 80CC/HR WITH 300CC FREE WATER Q 4HRS PROVIDED 1920KCALS, 120G (1.4G/KG), 2810CC TOTAL WATER FROM FORMULA AND FLUSHES (33CC/KG) FOLLOWING
--- NOTE | 2020-09-06 10:20 | PC.NURSE ---
Addendum entered by Erick Sanchez RN 09/06/20 14:33: Pt's sister yajaira updated via phone. She states that she will not be able to make it in to the hospital tomorrow, is continuing to try to get to [place]. Addendum entered by Erick Sanchez RN 09/06/20 11:52: Pt extubated at 1120, pt did not cough or follow commands to cough, suctioned with yankeur immediately when tube pulled, SaO2 on RA 96% RR 33 shallow resp, lungs dim. aware, placed on 2L/min NC to try to decrease RR. 1150 pt noted to be lethargic with no change in resp status, pt was not opening eyes to voice, barely opening with firm shaking, opened eyes when suctioned with yankeur. Sitting highfowlers at this time. Addendum entered by Erick Sanchez RN 09/06/20 10:56: Pt is opening eyes and following me around the room for 15-20 sec, then closes eyes. Pt did wiggle toes when i asked him to do so. Tolerating PSV well. Original Note: VSS Pt is intubated #8 ET tube 26cm lip, lungs clear, thick yee inline secretions.On ACPC rate 10 Ipressure 15 fio2 21% PEEP 5, breathing slightly over vent rate 13 Vt 700-850, Ve 9-10L/min, ETCO2 27, off propofol since 0700, opens eyes spontaneously and to voice, eye contact less than 10 sec then falls back asleep. Moves all extrem, does not follow commands, positive cough/gag, reaching toward ET tube. NSR, no edema BP slightly soft, adequate MAP and U/O 60-120ml/hr aurea. Rectal tube in place with minimal stool drainiage, promote held in anticipation of extubating, no residuals, restarted on depakote. LLE DVT-dorsalis pedis pulses palp. Switched to PSV 10/5 FiO2 21% at 0955 Vt 700-1,100, Ve 12L/MIN SaO2 99% ETCO2 28. Bed locked and in lowest position, semi fowlers.
--- NOTE | 2020-09-06 11:18 | PM.CCPN ---
Subjective Subjective Date of Service: 09/06/20 Interval History: 64-year-old male with antisocial behavior poor judgment on Zyprexa and valproic acid living in a care 1 type facility recent hospital admission for hypernatremia and altered mental status and then he repeat presents 2 weeks later with probable nosocomial pneumonia growing Pseudomonas from sputum and in reality probably from the blood as well therefore septic and resolving on cefepime doing well on ventilator with less than 10 L minute ventilatory requirement and FiO2 of 21% he is doing well with his weaning trial on pressure support ready for extubation and swallow evaluation Critical Care Time (minutes): 45 Physical Exam Vital Signs: Vital Signs: Last Vital Signs Temp 99.7 F 09/06/20 11:00 Pulse 79 09/06/20 11:00 Resp 16 09/06/20 11:00 BP 116/75 09/06/20 11:00 Pulse Ox 100 09/06/20 11:00 Body Mass Index 23.6 Const: Other: awake and locking eyes which is a progressive improvement over the day off propofol and off all IV support normal cardiac exam no neck vein distension and good bilateral carotid upstroke s left superficial femoral vein and popliteal thrombus on a modified full anticoagulation with Lovenox abdomen benign no organomegaly chest without adventitious sounds Objective Data Labs CBC & Chem 7: 09/06/20 05:10 09/06/20 05:10 Labs: Laboratory Results - last 24 hr 09/06/20 09/06/20 09/06/20 05:10 05:10 05:10 WBC 7.3 RBC 3.32 L Hgb 9.4 L Hct 29.1 L MCV 87.7 MCH 28.3 MCHC 32.3 RDW 14.1 Plt Count 156 L D MPV 10.6 Immature Gran % (Auto) 3.7 H Neut % (Auto) 69.5 Lymph % (Auto) 15.1 L [place] % (Auto) 10.4 Eos % (Auto) 1.2 Baso % (Auto) 0.1 Lymph # (Auto) 1.1 L [place] # (Auto) 0.8 Eos # (Auto) 0.1 Baso # (Auto) 0.0 Abs Immat Gran (auto) 0.27 H Absolute Neuts (auto) 5.1 Absolute Nucleated RBC 0.000 Nucleated RBC % (auto) 0.0 PT 14.6 H INR 1.3 H APTT 32.8 VBG pH VBG pCO2 VBG pO2 VBG HCO3 VBG O2 Saturation VBG Base Excess Sodium 144 Potassium 3.8 Chloride 109 H Carbon Dioxide 28 Anion Gap 11 L BUN 11 Creatinine 0.70 Estim Creat Clear Calc 122.0 Estimated GFR > 60 Random Glucose 97 Calcium 8.5 D Phosphorus 2.2 L Magnesium 1.8 Total Bilirubin 0.5 Direct Bilirubin 0.3 AST 40 H D ALT 43 H Alkaline Phosphatase 111 D B-Natriuretic Peptide Total Protein 5.8 L Albumin 3.0 L 09/06/20 09/06/20 09/06/20 05:10 05:10 05:15 WBC RBC Hgb Hct MCV MCH MCHC RDW Plt Count MPV Immature Gran % (Auto) Neut % (Auto) Lymph % (Auto) [place] % (Auto) Eos % (Auto) Baso % (Auto) Lymph # (Auto) [place] # (Auto) Eos # (Auto) Baso # (Auto) Abs Immat Gran (auto) Absolute Neuts (auto) Absolute Nucleated RBC Nucleated RBC % (auto) PT INR APTT VBG pH 7.49 H VBG pCO2 37 VBG pO2 43 VBG HCO3 29 H VBG O2 Saturation 72.0 VBG Base Excess 5.6 Sodium Potassium Chloride Carbon Dioxide Anion Gap BUN Creatinine Estim Creat Clear Calc Estimated GFR Random Glucose Calcium Phosphorus Magnesium Total Bilirubin Cancelled Direct Bilirubin Cancelled AST Cancelled ALT Cancelled Alkaline Phosphatase Cancelled B-Natriuretic Peptide 35 Total Protein Cancelled Albumin Cancelled Microbiology Microbiology Results: Microbiology 08/30/20 18:24 Blood - Venous Blood Culture - Preliminary 08/30/20 18:27 Blood - Venous Blood Culture - Preliminary 09/02/20 13:33 Sputum - Suctioned Gram Stain - Final 09/02/20 13:33 Sputum - Suctioned Sputum Culture - Final 08/30/20 22:35 Sputum - Suctioned Gram Stain - Final 08/30/20 22:35 Sputum - Suctioned Sputum Culture - Final Pseudomonas aeruginosa Progress Note: A&P Assessment and plan (1) Acute metabolic encephalopathy: Status: Acute (2) Aspiration pneumonitis: Status: Acute (3) Acute on chronic respiratory failure with hypoxia: Status: Acute (4) Hypernatremia: Status: Acute (5) Severe sepsis: Status: Acute (6) Deep vein thrombosis (DVT): Status: Acute Assessment and Plan: ready for extubation and swallow evaluation and switching valproic acid to IV until this is established and will use p.r.n. Haldol if there are agitated behavioral issues and will continue cefepime Quality Stroke Does the patient have a stroke diagnosis?: No VTE Prior VTE?: No VTE Risk Level:: Medical - moderate - high VTE Device Contraindication: N/A - Device Ordered VTE Drug Contraindication: N/A - Med Ordered
--- NOTE | 2020-09-06 11:31 | MHC.SLORD ---
Speech Language Pathology Order Status: Received order for swallow eval this morning as patient is ready for extubation per MD note. Swallow eval pending 24-48 hours post-extubation. Plan for swallow eval tomorrow. MD aware.
--- NOTE | 2020-09-06 14:52 | MHC.CM.PN ---
Pt extubated today and is now on nasal cannula: Sister Eileen is due to arrive on 09/07 from [place] and possibly make decisions re: [place] status. Pt had been a resident of [facility] and will return for continuation of care when medically stable. Clinical updates sent to [facility]
[2020-09-06] MEDS: Valproic Acid (as Sodium Salt) 500 MG in Dextrose 5 % 50 ML 55 MG IV (19:58)
[2020-09-07] VITALS (24 sets, daily range): BP systolic 84–120; BP diastolic 51–69; PULSE 61–75; RESP 12–38; TEMP 36.1–36.9; O2SAT 97–100; BMI 24.0
[2020-09-07] MEDS: Valproic Acid (as Sodium Salt) 500 MG in Dextrose 5 % 50 ML 55 MG IV ×3 (03:06→19:56)
[2020-09-07] MEDS: Enoxaparin Sodium 60 MG/0.6 ML SYRINGE SUBCUT ×2 (04:42→16:39)
--- NOTE | 2020-09-07 04:59 | PC.NURSE ---
Patient remained on 2L NC throughout night; orally suctioned as needed. Patient with intermittent cough. Patient remains drowsy unable to establish orientation related to no verbalization by patient. Patient does track movement and voice, squeezes hands-unable to establish if this is reflexive or patient is following commands. Patient rigid with turning and position changes.
[2020-09-07 05:22] LABS: VBG Base Excess 5.4 mmol/L; VBG HCO3 29 mmol/L (22-26); VBG pCO2 39 mmHg; VBG pH 7.47 (7.32-7.43); VBG pO2 58 mmHg
[2020-09-07 05:29] LABS: Basophils Percent Auto 0.1 % (0-2); Eosinophils Absolute Auto 0.1 X10*3/uL (0.0-0.4); Eosinophils Percent Auto 1.2 % (0-4); Hematocrit 27.9 % (42-52); Hemoglobin 8.9 g/dl (14.0-18.0); Imm Gran Abs Auto 0.15 X10*3/uL (0.00-0.03); Imm Gran Pct Auto 2.2 % (0.0-0.4); Lymphocytes Absolute Auto 1.1 X10*3/uL (1.2-4.9); Lymphocytes Percent Auto 15.9 % (20-40); MANUAL DIFF FLAG NO; Mean Corpuscular HGB Conc 31.9 g/dl (31.0-36.0); Mean Corpuscular Volume 87.7 fL (80-98); Mean Platelet Volume 9.7 fL (9.4-12.4); Monocytes Absolute Auto 0.6 X10*3/uL (0.1-1.2); Monocytes Percent Auto 9.4 % (2-11); Neutrophils Absolute Auto 4.8 X10*3/uL (2.0-8.3); Neutrophils Percent Auto 71.2 % (45-73); Platelet Count 194 X10*3/uL (160-400); Red Blood Count 3.18 X10*6/uL (4.60-5.80); Red Cell Distribution Width 14.2 % (11.0-16.0); White Blood Count 6.7 X10*3/uL (4.8-10.8)
[2020-09-07 05:35] LABS: INTERNATIONAL NORM RATIO 1.3 (0.9-1.1)
[2020-09-07 05:38] LABS: Partial Thromboplastin Time 37.2 SEC (24.1-38.0)
[2020-09-07 05:51] LABS: Alanine Aminotransferase 34 U/L (0-40); Albumin Level 2.8 g/dL (3.5-5.0); Alkaline Phosphatase 97 U/L (39-117); Aspartate Amino Transferase 27 U/L (5-37); Bilirubin Direct 0.4 mg/dL (0.0-0.5); Bilirubin Total 0.8 mg/dL (0.0-1.0); Total Protein 5.6 g/dL (6.5-8.0)
[2020-09-07 05:58] LABS: B Type Natriuretic Peptide 44 pg/mL (<100)
[2020-09-07 06:37] LABS: Venous Blood Gas Refer to POC result
[2020-09-07 06:52] LABS: Anion Gap 14 (12-20); Blood Urea Nitrogen 11 mg/dL (9-16); Calcium 8.4 mg/dL (8.4-10.2); Carbon Dioxide 26 mmol/L (22-29); Chloride 109 mmol/L (96-108); Creatinine Clr Calc Pharmacy 137.8; Estimated Glomerular Filt Rate > 60; Glucose Random 82 mg/dL (60-115); Magnesium 1.9 mg/dL (1.6-2.6); Phosphorus 3.1 mg/dL (2.7-4.5); Potassium 3.5 mmol/L (3.3-5.1); Sodium 145 mmol/L (135-145)
[2020-09-07] MEDS: cefEPime HCl 2 GM in 0.9 % Sodium Chloride 50 ML IV ×2 (07:36→19:56)
--- NOTE | 2020-09-07 08:38 | PM.CCPN ---
Subjective Subjective Date of Service: 09/07/20 Interval History: is 64-year-old male with progressive dementia some degree of so see op the Cathy adalberto who had been on Zyprexa and valproic acid on the outside a recent hospital admission for hypernatremia and altered mental status and then within 2 weeks readmitted with a likely nosocomial component to what appears to be an aspiration pneumonitis and aspiration or dysphagia it is a chronic issue with him and sputum and probably blood grew Gram-negative rods which turned out to be Pseudomonas and he has been on cefepime with complete resolution of his white count his fever his respiratory insufficiency with successful extubation 24 hours ago and perfectly compensated blood gas resolution of elevated liver functions and I believe that was on the basis of the Unasyn but on cefepime is doing very well and now simply awaits a swallow study so we could decide to we feed or does he require a PEG tube that needs to be discussed with his health proxy Critical Care Time (minutes): 30 Physical Exam Vital Signs: Vital Signs: Last Vital Signs Temp 97.7 F 09/07/20 07:58 Pulse 64 09/07/20 07:58 Resp 20 09/07/20 07:58 BP 96/54 L 09/07/20 07:58 Pulse Ox 100 09/07/20 07:58 Body Mass Index 24.0 Const: Other: awake but lethargic but arousable cardiac exam is normal with no neck vein distension and good bilateral carotid upstrokes abdomen is benign and soft no org anomegaly and chest without significant a dventitious sounds skin intact with no acrocyanosis no edema Objective Data Labs CBC & Chem 7: 09/07/20 05:15 09/07/20 05:15 Labs: Laboratory Results - last 24 hr 09/07/20 09/07/20 09/07/20 05:14 05:15 05:15 WBC 6.7 RBC 3.18 L Hgb 8.9 L Hct 27.9 L MCV 87.7 MCH 28.0 MCHC 31.9 RDW 14.2 Plt Count 194 MPV 9.7 Immature Gran % (Auto) 2.2 H Neut % (Auto) 71.2 Lymph % (Auto) 15.9 L [place] % (Auto) 9.4 Eos % (Auto) 1.2 Baso % (Auto) 0.1 Lymph # (Auto) 1.1 L [place] # (Auto) 0.6 Eos # (Auto) 0.1 Baso # (Auto) 0.0 Abs Immat Gran (auto) 0.15 H Absolute Neuts (auto) 4.8 Absolute Nucleated RBC 0.000 Nucleated RBC % (auto) 0.0 PT 15.0 H INR 1.3 H APTT 37.2 VBG pH 7.47 H VBG pCO2 39 VBG pO2 58 VBG HCO3 29 H VBG O2 Saturation 85.0 VBG Base Excess 5.4 Sodium Potassium Chloride Carbon Dioxide Anion Gap BUN Creatinine Estim Creat Clear Calc Estimated GFR Random Glucose Calcium Phosphorus Magnesium Total Bilirubin Direct Bilirubin AST ALT Alkaline Phosphatase B-Natriuretic Peptide Total Protein Albumin 09/07/20 09/07/20 09/07/20 05:15 05:15 05:15 WBC RBC Hgb Hct MCV MCH MCHC RDW Plt Count MPV Immature Gran % (Auto) Neut % (Auto) Lymph % (Auto) [place] % (Auto) Eos % (Auto) Baso % (Auto) Lymph # (Auto) [place] # (Auto) Eos # (Auto) Baso # (Auto) Abs Immat Gran (auto) Absolute Neuts (auto) Absolute Nucleated RBC Nucleated RBC % (auto) PT INR APTT VBG pH VBG pCO2 VBG pO2 VBG HCO3 VBG O2 Saturation VBG Base Excess Sodium 145 Potassium 3.5 Chloride 109 H Carbon Dioxide 26 Anion Gap 14 BUN 11 Creatinine 0.62 Estim Creat Clear Calc 137.8 Estimated GFR > 60 Random Glucose 82 Calcium 8.4 Phosphorus 3.1 Magnesium 1.9 Total Bilirubin 0.8 Direct Bilirubin 0.4 AST 27 ALT 34 Alkaline Phosphatase 97 B-Natriuretic Peptide 44 Total Protein 5.6 L Albumin 2.8 L Microbiology Microbiology Results: Microbiology 08/30/20 18:24 Blood - Venous Blood Culture - Preliminary 08/30/20 18:27 Blood - Venous Blood Culture - Preliminary 09/02/20 13:33 Sputum - Suctioned Gram Stain - Final 09/02/20 13:33 Sputum - Suctioned Sputum Culture - Final 08/30/20 22:35 Sputum - Suctioned Gram Stain - Final 08/30/20 22:35 Sputum - Suctioned Sputum Culture - Final Pseudomonas aeruginosa Progress Note: A&P Assessment and plan (1) Deep vein thrombosis (DVT): Status: Acute (2) Acute metabolic encephalopathy: Status: Acute (3) Aspiration pneumonitis: Status: Acute (4) Acute on chronic respiratory failure with hypoxia: Status: Acute (5) Hypernatremia: Status: Acute (6) Severe sepsis: Status: Acute Assessment and Plan: plan is to await swallow evaluation and for him to a waken to a greater degree in the hope that we might be able to remove the Escalante catheter and feed him if not then we must discuss with his healthcare proxy possible PEG Quality Stroke Does the patient have a stroke diagnosis?: No VTE Prior VTE?: No VTE Risk Level:: Medical - moderate - high VTE Device Contraindication: N/A - Device Ordered VTE Drug Contraindication: N/A - Med Ordered
--- NOTE | 2020-09-07 09:07 | MHC.CLN ---
F/U PT EXTUBATED AWAITING ROVING SIZER EVAL FOR DIET CONSISTENCY DIET RX: NPO PENDING SWALLOW EVAL IF DIET TO ADVANCE; RECOMMEND REGULAR IN ADDITION TO ROVING SIZER RECOMMENDATIONS FOLLOWING
--- NOTE | 2020-09-07 13:44 | MHC.SL.SWA ---
Speech Pathologist Impression: Risk of Aspiration Oralpharyngeal Dysphagia Risk of Aspiration Due to: Lethargy History of Pneumonia Hx of Recent Extubation Reduced Cognition Dysphasia Diet Status: No Change Liquid Consistency and Strategies for Safe Swallow: Liquid Intake Recommendation: NPO Solid Food Consistency: Dietary Recommendations: NPO Oral Medication Intake: NPO Supervision While Eating and Drinking for Safe Swallow: PO with FARM EQUIPMENT OPERATOR Recommendation for Speech: Inpatient Speech Therapy Comment: No initiation for swallow. Recommend continue NPO status at this time. Recommend continue ST intervention. Recommend consult with RD and GI to determine appropriate means for nutrition. Radiology Transcriptionist Clinican/Clinical Fellow: No Supervisory Statement: I have reviewed and agree with the student/clinical fellow's documentation: N/A Speech Language Pathologist: Vijaya Arteaga M.A., CCC-FARM EQUIPMENT OPERATOR
[2020-09-07] MEDS: Lactated Ringers 1,000 ML 80 ML IVCONT (15:40)
[2020-09-08] VITALS (23 sets, daily range): BP systolic 93–146; BP diastolic 52–84; PULSE 60–81; RESP 12–24; TEMP 36.2–37.4; O2SAT 97–100; BMI 23.7
[2020-09-08] MEDS: Valproic Acid (as Sodium Salt) 500 MG in Dextrose 5 % 50 ML 55 MG IV ×3 (03:27→20:54)
[2020-09-08] MEDS: Enoxaparin Sodium 60 MG/0.6 ML SYRINGE SUBCUT ×2 (04:58→17:23)
[2020-09-08 05:23] LABS: VBG Base Excess 5.6 mmol/L; VBG HCO3 29 mmol/L (22-26); VBG pCO2 37 mmHg; VBG pH 7.49 (7.32-7.43); VBG pO2 46 mmHg
[2020-09-08 05:29] LABS: Venous Blood Gas Refer to POC result
[2020-09-08 05:29] LABS: MANUAL DIFF FLAG NO
[2020-09-08] MEDS: Lactated Ringers 1,000 ML 80 ML IVCONT ×2 (05:29→18:50)
[2020-09-08 05:35] LABS: Basophils Percent Auto 0.2 % (0-2); Eosinophils Absolute Auto 0.1 X10*3/uL (0.0-0.4); Eosinophils Percent Auto 0.8 % (0-4); Hematocrit 30.1 % (42-52); Hemoglobin 9.5 g/dl (14.0-18.0); Imm Gran Pct Auto 1.5 % (0.0-0.4); Lymphocytes Percent Auto 15.1 % (20-40); Mean Corpuscular HGB Conc 31.6 g/dl (31.0-36.0); Mean Corpuscular Hemoglobin 27.9 pg (27.0-33.0); Mean Corpuscular Volume 88.5 fL (80-98); Mean Platelet Volume 9.9 fL (9.4-12.4); Monocytes Absolute Auto 0.7 X10*3/uL (0.1-1.2); Monocytes Percent Auto 9.9 % (2-11); Neutrophils Absolute Auto 4.8 X10*3/uL (2.0-8.3); Neutrophils Percent Auto 72.5 % (45-73); Platelet Count 252 X10*3/uL (160-400); White Blood Count 6.6 X10*3/uL (4.8-10.8)
[2020-09-08 05:41] LABS: INTERNATIONAL NORM RATIO 1.3 (0.9-1.1); Prothrombin Time 15.3 SEC (9.9-13.0)
[2020-09-08 05:57] LABS: Alanine Aminotransferase 26 U/L (0-40); Albumin Level 2.9 g/dL (3.5-5.0); Alkaline Phosphatase 94 U/L (39-117); Aspartate Amino Transferase 25 U/L (5-37); Bilirubin Direct 0.3 mg/dL (0.0-0.5); Bilirubin Total 0.6 mg/dL (0.0-1.0); Total Protein 5.9 g/dL (6.5-8.0)
[2020-09-08 05:58] LABS: Anion Gap 13 (12-20); Blood Urea Nitrogen 10 mg/dL (9-16); Calcium 8.6 mg/dL (8.4-10.2); Carbon Dioxide 28 mmol/L (22-29); Chloride 107 mmol/L (96-108); Estimated Glomerular Filt Rate > 60; Glucose Random 76 mg/dL (60-115); Phosphorus 2.9 mg/dL (2.7-4.5); Potassium 3.5 mmol/L (3.3-5.1); Sodium 144 mmol/L (135-145)
[2020-09-08 06:01] LABS: B Type Natriuretic Peptide 62 pg/mL (<100)
[2020-09-08] MEDS: cefEPime HCl 2 GM in 0.9 % Sodium Chloride 50 ML IV ×2 (07:25→20:55)
[2020-09-08] MEDS: Haloperidol Lactate 5 MG/ML VIAL IV (07:52)
--- NOTE | 2020-09-08 08:11 | P.PNCC_ITS ---
Subjective Subjective Date of Service: 09/08/20 Interval History: 64-year-old with progressive dementia and history of so CPAP thick behavior presented with a an aspiration pneumonia with a nosocomial origin growing Pseudomonas from the sputum and eventually propiona- bacterium from the blood and responding clinically to cefepime and his acute hypoxic respiratory failure improved and was weaned successfully from the ventilator he is capable of coughing but not really completely clearing his his secretions and we are awaiting and other attempt by a swallow and speech to see if he can cooperate and try to swallow so a diet can be prescribed and after discussion with his sister who is his healthcare proxy a rented my opinion about and artificial feeding but ultimately that decision be up to the family if he is unable to swallow Critical Care Time (minutes): 30 Physical Exam Vital Signs: Vital Signs: Last Vital Signs Temp 97.1 F 09/08/20 08:00 Pulse 74 09/08/20 08:00 Resp 16 09/08/20 08:00 BP 100/67 09/08/20 08:00 Pulse Ox 98 09/08/20 08:00 Body Mass Index 23.7 Const: Other: the definitely more awake and alert but he may be at the limit of his cognitive reserve as he really does not respond to you he seems to be fixated on his Escalante catheter but nonfocal normal cardiac exam no gallops no murmurs and good bilateral carotid upstrokes chest with some minor upper airway rhonchi otherwise kellie r abdomen is benign no organomegaly nontender skin is intact Objective Data Labs CBC & Chem 7: 09/08/20 05:13 09/08/20 05:13 Labs: Laboratory Results - last 24 hr 09/08/20 09/08/20 09/08/20 05:13 05:13 05:13 WBC 6.6 RBC 3.40 L Hgb 9.5 L Hct 30.1 L MCV 88.5 MCH 27.9 MCHC 31.6 RDW 14.0 Plt Count 252 D MPV 9.9 Immature Gran % (Auto) 1.5 H Neut % (Auto) 72.5 Lymph % (Auto) 15.1 L [place] % (Auto) 9.9 Eos % (Auto) 0.8 Baso % (Auto) 0.2 Lymph # (Auto) 1.0 L [place] # (Auto) 0.7 Eos # (Auto) 0.1 Baso # (Auto) 0.0 Abs Immat Gran (auto) 0.10 H Absolute Neuts (auto) 4.8 Absolute Nucleated RBC 0.000 Nucleated RBC % (auto) 0.0 PT 15.3 H INR 1.3 H APTT 37.0 VBG pH VBG pCO2 VBG pO2 VBG HCO3 VBG O2 Saturation VBG Base Excess Sodium 144 Potassium 3.5 Chloride 107 Carbon Dioxide 28 Anion Gap 13 BUN 10 Creatinine 0.61 Estim Creat Clear Calc 140.0 Estimated GFR > 60 Random Glucose 76 Calcium 8.6 Phosphorus 2.9 Magnesium 2.0 Total Bilirubin Direct Bilirubin AST ALT Alkaline Phosphatase B-Natriuretic Peptide Total Protein Albumin 09/08/20 09/08/20 09/08/20 05:13 05:13 05:15 WBC RBC Hgb Hct MCV MCH MCHC RDW Plt Count MPV Immature Gran % (Auto) Neut % (Auto) Lymph % (Auto) [place] % (Auto) Eos % (Auto) Baso % (Auto) Lymph # (Auto) [place] # (Auto) Eos # (Auto) Baso # (Auto) Abs Immat Gran (auto) Absolute Neuts (auto) Absolute Nucleated RBC Nucleated RBC % (auto) PT INR APTT VBG pH 7.49 H VBG pCO2 37 VBG pO2 46 VBG HCO3 29 H VBG O2 Saturation 75.0 VBG Base Excess 5.6 Sodium Potassium Chloride Carbon Dioxide Anion Gap BUN Creatinine Estim Creat Clear Calc Estimated GFR Random Glucose Calcium Phosphorus Magnesium Total Bilirubin 0.6 Direct Bilirubin 0.3 AST 25 ALT 26 Alkaline Phosphatase 94 B-Natriuretic Peptide 62 Total Protein 5.9 L Albumin 2.9 L Microbiology Microbiology Results: Microbiology 08/30/20 18:27 Blood - Venous Blood Culture - Final Propionibacterium acnes 08/30/20 18:24 Blood - Venous Blood Culture - Final Propionibacterium acnes 09/02/20 13:33 Sputum - Suctioned Gram Stain - Final 09/02/20 13:33 Sputum - Suctioned Sputum Culture - Final 08/30/20 22:35 Sputum - Suctioned Gram Stain - Final 08/30/20 22:35 Sputum - Suctioned Sputum Culture - Final Pseudomonas aeruginosa Progress Note: A&P Assessment and plan (1) Deep vein thrombosis (DVT): Status: Acute (2) Acute metabolic encephalopathy: Status: Acute (3) Aspiration pneumonitis: Status: Acute (4) Acute on chronic respiratory failure with hypoxia: Status: Acute (5) Hypernatremia: Status: Acute (6) Severe sepsis: Status: Acute Assessment and Plan: plan is for a repeat swallow examination and if we meet with some level of success I think out of bed to the chair discontinue central line and Escalante catheter just start peripheral IV and then initiate physical therapy Quality Stroke Does the patient have a stroke diagnosis?: No VTE Prior VTE?: No VTE Risk Level:: Medical - moderate - high VTE Device Contraindication: N/A - Device Ordered VTE Drug Contraindication: N/A - Med Ordered
--- NOTE | 2020-09-08 10:18 | MHC.CLN ---
RE: CONSULT PER UROLOGY PHYSICIAN ASSISTANT UROLOGY PHYSICIAN ASSISTANT RECOMMENDS NPO RECOMMEND FAMILY TEAM MEETING TO DISCUSS GOALS OF CARE: TF VS. ELECTRICIANS TOP HELPER CONSULT RD IF TF OR OTHER ALTERNATIVE NUTRITION NEEDED S/P FAMILY MEETING FOLLOWING
--- NOTE | 2020-09-08 10:46 | MHC.SL.SWA ---
Speech Pathologist Impression: Risk of Aspiration Oralpharyngeal Dysphagia Risk of Aspiration Due to: Lethargy History of Pneumonia Hx of Recent Extubation Reduced Cognition Dysphasia Diet Status: No Change Liquid Consistency and Strategies for Safe Swallow: Liquid Intake Recommendation: NPO Solid Food Consistency: Dietary Recommendations: NPO Additional Modifications to Solid Foods: Recommend keep head of bed elevated at least 30 degrees to reduce microaspiration. Recommend continue frequent oral care. Patient may benefit from consult with RD/GI to determine appropriate means of nutrition. Oral Medication Intake: NPO Supervision While Eating and Drinking for Safe Swallow: PO with RANGE MASTER Recommendation for Speech: Inpatient Speech Therapy Comment: No initiation for swallow. Recommend continue NPO status at this time. Recommend continue ST intervention. Recommend consult with RD and GI to determine appropriate means for nutrition. Manager Salt Clinican/Clinical Fellow: No Supervisory Statement: I have reviewed and agree with the student/clinical fellow's documentation: N/A Speech Language Pathologist: Vijaya Arteaga M.A., CCC-RANGE MASTER
--- NOTE | 2020-09-08 11:41 | MHC.CM.PN ---
Addendum entered by Deann Ware 09/08/20 16:18: Pt was able to FaceTime with sister Abebe: pt non responsive during call. MD able to speak with sister at length - she verbalized understanding of the severity of pt's illness but does not feel comfortable making decisions re: SUPPLY CHAIN BUSINESS ANALYST without being physically present. She is planning on leaving [place] tomorrow after the storm to [place] to see pt and make decisions. Informed [facility] of pt's potential return in the next few days: Pt currently does not have a route for nutrition: he is NPO d/t swallow eval fail and no TPN or tube feed route. Pt is on IVF. Pt not able to d/c to SNF without SUPPLY CHAIN BUSINESS ANALYST or established route. Will follow for d/c needs. Original Note: Pt remains in ICU: 2nd swallow eval attempted: pt unable to follow directions and propel food in mouth. Pt able to nod yes and no to some questions but his overall MS remains very impaired. Pt also unable to manage oral secretions and requires suctioning. MD wishes to have urgent discussion with pt's sister/HCP/guardian, Abebe re: ? SUPPLY CHAIN BUSINESS ANALYST status in light of pt's extreme failure to thrive. She was supposed to be at [facility] today but is unable to travel d/t [facility]. Call placed to [facility] who is able to have a Facetime call. This has been set up with TRAVEL MED SURG RN, and CM for 2pm today. Goals of care will be discussed. Pt can return to [facility] when he is medically ready. Clinical updates remitted. CM to follow
--- NOTE | 2020-09-08 14:32 | PC.NURSE ---
Escalante removed by Rn working 7-11. Pt voiced 180ml of concentrated urine in [place] cath.
--- NOTE | 2020-09-08 14:42 | PC.NURSE ---
Skin/wound assessment completed today. Patient has an intact drained blister on right heel, Triad applied and foam dressing. A stage 3 pressure ulcer on left heel, Triad applied and foam dressing. Booties on both feet. Also, there is moisture associated skin damage to scrotum, interdry placed under scrotum. Abrasion to forehead from pulse oximetry pad , dark in color and dry.
--- NOTE | 2020-09-08 21:40 | PC.NURSE ---
Pt in bed with hob up 30-45 degrees. No resp difficulty. O2 sat on room air is 98-100%. Pt does require occassional suctioning of oropharynx for mod amount of thick yee secretions. This triggers pt to cough which helps to clear the secretions. BP stable. monitor shows NSR, rate 60's, no ectopy. Afebrile. Pt has orders to transfer out of ICU and will be going to room 482 once report given. TLC right IJ removed without difficulty. Dressing applied. Pt has #20 angio peripheral IV left wrist that was inserted yesterday 09/07.
[2020-09-09] MEDS: Valproic Acid (as Sodium Salt) 500 MG in Dextrose 5 % 50 ML 55 MG IV ×3 (03:32→18:23)
[2020-09-09 03:55] VITALS: BP 152/75; PULSE 68; RESP 18; TEMP 37.1; O2SAT 97
[2020-09-09 05:26] VITALS: BMI 23.5
[2020-09-09] MEDS: Enoxaparin Sodium 60 MG/0.6 ML SYRINGE SUBCUT ×2 (05:44→17:01)
[2020-09-09 06:21] LABS: VBG Base Excess 3.6 mmol/L; VBG HCO3 28 mmol/L (22-26); VBG pCO2 41 mmHg; VBG pH 7.43 (7.32-7.43); VBG pO2 59 mmHg
[2020-09-09 06:22] LABS: Venous Blood Gas Refer to POC result
[2020-09-09 06:47] LABS: INTERNATIONAL NORM RATIO 1.4 (0.9-1.1)
[2020-09-09 06:49] LABS: Partial Thromboplastin Time 35.5 SEC (24.1-38.0)
[2020-09-09 06:54] LABS: Anion Gap 15 (12-20); Blood Urea Nitrogen 9 mg/dL (9-16); Calcium 8.8 mg/dL (8.4-10.2); Carbon Dioxide 24 mmol/L (22-29); Chloride 107 mmol/L (96-108); Creatinine Clr Calc Pharmacy 142.4; Estimated Glomerular Filt Rate > 60; Glucose Random 61 mg/dL (60-115); Magnesium 2.1 mg/dL (1.6-2.6); Phosphorus 2.6 mg/dL (2.7-4.5); Potassium 3.8 mmol/L (3.3-5.1); Sodium 142 mmol/L (135-145)
[2020-09-09 06:55] LABS: Alanine Aminotransferase 20 U/L (0-40); Alkaline Phosphatase 95 U/L (39-117); Aspartate Amino Transferase 26 U/L (5-37); Bilirubin Direct 0.3 mg/dL (0.0-0.5); Bilirubin Total 0.6 mg/dL (0.0-1.0); Total Protein 6.4 g/dL (6.5-8.0)
[2020-09-09 07:01] LABS: B Type Natriuretic Peptide 44 pg/mL (<100)
[2020-09-09 07:50] VITALS: BP 134/74; PULSE 70; RESP 20; O2SAT 96
[2020-09-09] MEDS: Lactated Ringers 1,000 ML 80 ML IVCONT ×2 (08:33→22:25)
[2020-09-09] MEDS: cefEPime HCl 2 GM in 0.9 % Sodium Chloride 50 ML IV ×2 (08:33→20:48)
--- NOTE | 2020-09-09 10:14 | MHC.CM.ED ---
Per [facility], pt cannot return without a diet - this can be tube feeding or NPO with GERMAN TUTOR status but they are unable to accept pt on IVF solely. Explained that we are waiting for pts' sister/HCP/Legal guardian to arrive this weekend to visit w/pt and make a decision on goals of care. Although she face timed with pt on 09/08 and had an extensive conversation with the ICU MD, she was unable to come to a decision. CM will continued to follow.
--- NOTE | 2020-09-09 10:41 | MHC.SL.SWA ---
Speech Pathologist Impression: Risk of Aspiration Oralpharyngeal Dysphagia Risk of Aspiration Due to: Lethargy History of Pneumonia Hx of Recent Extubation Reduced Cognition Dysphasia Diet Status: No Change Liquid Consistency and Strategies for Safe Swallow: Liquid Intake Recommendation: NPO Solid Food Consistency: Dietary Recommendations: NPO Additional Modifications to Solid Foods: Recommend keep head of bed elevated at least 30 degrees to reduce microaspiration. Recommend continue frequent oral care. Patient may benefit from consult with RD/GI to determine appropriate means of nutrition. Oral Medication Intake: NPO Supervision While Eating and Drinking for Safe Swallow: PO with ELECTRONIC INSTRUMENT TRADES WORKER Recommendation for Speech: Inpatient Speech Therapy Comment: No change. No initiation for swallow. Recommend continue NPO status at this time. Recommend continue ST intervention. Recommend consult with RD and GI to determine appropriate means for nutrition. Neonatal Doctor Clinican/Clinical Fellow: No Supervisory Statement: I have reviewed and agree with the student/clinical fellow's documentation: N/A Speech Language Pathologist: Vijaya Arteaga M.A., CCC-ELECTRONIC INSTRUMENT TRADES WORKER
[2020-09-09 11:24] VITALS: BP 145/73; PULSE 67; RESP 20; TEMP 36.8; O2SAT 97
--- NOTE | 2020-09-09 11:56 | P.PNIM_ITS ---
Subjective Subjective Date of Service: 09/09/20 Interval History: alert, tracking, not speaking, Cardiovascular Cardiovascular: Reports no additional cardiovascular complaints Gastrointestinal Gastrointestinal: Reports no additional gastrointestinal complaints Physical Exam Vital Signs: Vital Signs: Last Vital Signs Temp 98.3 F 09/09/20 11:24 Pulse 67 09/09/20 11:24 Resp 20 09/09/20 11:24 BP 145/73 H 09/09/20 11:24 Pulse Ox 97 09/09/20 11:24 Body Mass Index 23.5 General: Alert, tracking, not talking Resp: diminished CVS: S1,S2,RRR GI: soft, non tender, non distended Neuro: rigid, overall weak Psych: impaired insight Objective Data Current Medications Generic Name Dose Route Start Last Admin Trade Name Freq PRN Reason Stop Dose Admin Enoxaparin Sodium 60 mg 09/03/20 05:00 09/09/20 05:44 Enoxaparin Sodium 60 Mg/0.6 Ml Syringe SUBCUT 60 mg Q12H ARPIT Administration Haloperidol Lactate 0.5 mg 09/06/20 11:10 09/08/20 07:52 Haloperidol Lactate 5 Mg/Ml Vial IV 0.5 mg Q1H PRN Administration anxiety/restlessness Cefepime HCl 2 gm/ Sodium 50 mls @ 100 mls/hr 09/05/20 08:00 09/09/20 09:09 Chloride IV Infused Q12H ARPIT Infusion Valproic Acid 500 mg/ Dextrose 55 mls @ 55 mls/hr 09/06/20 19:15 09/09/20 11:31 IV 55 mls/hr Q8H ARPIT Administration Lactated Ringer's 1,000 mls @ 80 mls/hr 09/07/20 14:30 09/09/20 08:33 Lr IVCONT 80 mls/hr .[id number] ARPIT Administration Labs CBC & Chem 7: 09/08/20 05:13 09/09/20 06:12 Labs: Laboratory Results - last 24 hr 09/09/20 09/09/20 09/09/20 06:12 06:12 06:12 PT 16.0 H INR 1.4 H APTT 35.5 VBG pH VBG pCO2 VBG pO2 VBG HCO3 VBG O2 Saturation VBG Base Excess Sodium 142 Potassium 3.8 Chloride 107 Carbon Dioxide 24 Anion Gap 15 BUN 9 Creatinine 0.60 Estim Creat Clear Calc 142.4 Estimated GFR > 60 Random Glucose 61 Calcium 8.8 Phosphorus 2.6 L Magnesium 2.1 Total Bilirubin Direct Bilirubin AST ALT Alkaline Phosphatase B-Natriuretic Peptide 44 Total Protein Albumin 09/09/20 09/09/20 06:12 06:13 PT INR APTT VBG pH 7.43 VBG pCO2 41 VBG pO2 59 VBG HCO3 28 H VBG O2 Saturation 83.0 VBG Base Excess 3.6 Sodium Potassium Chloride Carbon Dioxide Anion Gap BUN Creatinine Estim Creat Clear Calc Estimated GFR Random Glucose Calcium Phosphorus Magnesium Total Bilirubin 0.6 Direct Bilirubin 0.3 AST 26 ALT 20 Alkaline Phosphatase 95 B-Natriuretic Peptide Total Protein 6.4 L Albumin 3.0 L Quality Stroke Does the patient have a stroke diagnosis?: No VTE Prior VTE?: No VTE Risk Level:: Medical - moderate - high VTE Device Contraindication: N/A - Device Ordered VTE Drug Contraindication: N/A - Med Ordered Assessment and Plan (1) Acute metabolic encephalopathy: Status: Acute (2) Deep vein thrombosis (DVT): Status: Acute Assessment and Plan: 64M downgrade from ICU after admissin for severe sepsis/ acute hypoxic respiratory failure requiring intubation due to aspiratoin pneumonia due to pseudomas, complicated by DVT. he was given cefepime, sepsis resolved, he was treated with therapeutic lovenox, successfully extubated and downgraded to medical floor. severe sepsis present on admission and acute hypoxic respiratory failure due to pseudomal aspiration pneumonia continue cefepime dvt lovenox dysphagia NPO family to decide PEG vs DIRECTOR OF CLINICAL APPLICATIONS
--- NOTE | 2020-09-09 13:23 | MHC.CLN ---
F/U CONSULT PER FEED MILLER COMPLETED 09/08/20 FEED MILLER CONTINUES TO RECOMMEND NPO (SEE NOTE 09/09) SEE ALSO CM NOTE DATED 09/09/20 AWAITING FAMILY MEMBER/HCP TO ARRIVE FROM [place] TO MAKE DECISION REGARDING GOALS OF CARE PT IS NPO; RECEIVING IVF ONLY. PT WITHOUT NUTRITION DAY 3 IF PPN NEEDED; RECOMMEND D10AA4.25 AT 30CC/HR IF TF NEEDED; RECOMMEND PROMOTE AT MAX GOAL OF 80CC/HR WITH 300CC FREE WATER FLUSHES Q 6 HRS START AT 20CC/HR AND INCREASE BY 10CC Q 4HRS UNTIL MAX GOAL IS ACHIEVED CONSULT RD IF NEEDED FOLLOWING WITH TEAM
[2020-09-09 15:26] VITALS: BP 132/73; PULSE 66; RESP 18; TEMP 36.8; O2SAT 98
[2020-09-09 19:40] VITALS: BP 143/70; PULSE 69; RESP 18; TEMP 37.1; O2SAT 96
[2020-09-09] MEDS: Haloperidol Lactate 5 MG/ML VIAL IV (22:23)
[2020-09-09 23:13] VITALS: BP 138/76; PULSE 68; RESP 18; TEMP 36.8; O2SAT 98
[2020-09-10] MEDS: Valproic Acid (as Sodium Salt) 500 MG in Dextrose 5 % 50 ML 55 MG IV ×3 (02:36→19:47)
[2020-09-10 03:53] VITALS: BP 128/64; PULSE 68; RESP 16; TEMP 37.4; O2SAT 93
[2020-09-10] MEDS: Enoxaparin Sodium 60 MG/0.6 ML SYRINGE SUBCUT ×2 (05:30→17:45)
[2020-09-10 05:44] VITALS: BMI 24.2
[2020-09-10 07:14] LABS: Anion Gap 12 (12-20); Blood Urea Nitrogen 7 mg/dL (9-16); Calcium 8.5 mg/dL (8.4-10.2); Carbon Dioxide 26 mmol/L (22-29); Chloride 108 mmol/L (96-108); Creatinine Clr Calc Pharmacy 155.3; Estimated Glomerular Filt Rate > 60; Glucose Fasting 70 mg/dL (60-99); Potassium 3.4 mmol/L (3.3-5.1); Sodium 143 mmol/L (135-145)
[2020-09-10 07:28] LABS: B Type Natriuretic Peptide 107 pg/mL (<100)
[2020-09-10 07:36] LABS: Hematocrit 29.9 % (42-52); Hemoglobin 9.5 g/dl (14.0-18.0); Mean Corpuscular HGB Conc 31.8 g/dl (31.0-36.0); Mean Corpuscular Hemoglobin 27.5 pg (27.0-33.0); Mean Corpuscular Volume 86.7 fL (80-98); Mean Platelet Volume 9.9 fL (9.4-12.4); Platelet Count 356 X10*3/uL (160-400); Red Blood Count 3.45 X10*6/uL (4.60-5.80); Red Cell Distribution Width 13.5 % (11.0-16.0); White Blood Count 5.8 X10*3/uL (4.8-10.8)
[2020-09-10 07:39] VITALS: BP 102/62; PULSE 75; RESP 18; TEMP 36.1; O2SAT 94
[2020-09-10] MEDS: cefEPime HCl 2 GM in 0.9 % Sodium Chloride 50 ML IV ×2 (08:47→21:06)
--- NOTE | 2020-09-10 11:04 | HO.PM.IMPN ---
Subjective Subjective Date of Service: 09/10/20 Interval History: not talking Cardiovascular Cardiovascular: Reports no additional cardiovascular complaints Respiratory Respiratory: Reports no additional respiratory complaints Physical Exam Vital Signs: Vital Signs: Last Vital Signs Temp 97 F 09/10/20 07:39 Pulse 75 09/10/20 07:39 Resp 18 09/10/20 07:39 BP 102/62 09/10/20 07:39 Pulse Ox 94 09/10/20 07:39 Body Mass Index 24.2 General: Alert, tracking, not talking Resp: diminished CVS: S1,S2,RRR GI: soft, non tender, non distended Neuro: rigid, overall weak Psych: impaired insight Objective Data Current Medications Generic Name Dose Route Start Last Admin Trade Name Freq PRN Reason Stop Dose Admin Enoxaparin Sodium 60 mg 09/03/20 05:00 09/10/20 05:30 Enoxaparin Sodium 60 Mg/0.6 Ml Syringe SUBCUT 60 mg Q12H ARPIT Administration Haloperidol Lactate 0.5 mg 09/06/20 11:10 09/09/20 22:23 Haloperidol Lactate 5 Mg/Ml Vial IV 0.5 mg Q1H PRN Administration anxiety/restlessness Cefepime HCl 2 gm/ Sodium 50 mls @ 100 mls/hr 09/05/20 08:00 09/10/20 09:37 Chloride IV Infused Q12H ARPIT Infusion Valproic Acid 500 mg/ Dextrose 55 mls @ 55 mls/hr 09/06/20 19:15 09/10/20 03:45 IV Infused Q8H ARPIT Infusion Lactated Ringer's 1,000 mls @ 80 mls/hr 09/07/20 14:30 09/09/20 22:25 Lr IVCONT 80 mls/hr .[id number] ARPIT Administration Labs CBC & Chem 7: 09/10/20 05:53 09/10/20 05:53 Labs: Laboratory Results - last 24 hr 09/10/20 09/10/20 09/10/20 05:53 05:53 05:53 WBC 5.8 RBC 3.45 L Hgb 9.5 L Hct 29.9 L MCV 86.7 MCH 27.5 MCHC 31.8 RDW 13.5 Plt Count 356 D MPV 9.9 Absolute Nucleated RBC 0.000 Nucleated RBC % (auto) 0.0 Sodium 143 Potassium 3.4 Chloride 108 Carbon Dioxide 26 Anion Gap 12 BUN 7 L Creatinine 0.55 Estim Creat Clear Calc 155.3 Estimated GFR > 60 Fasting Glucose 70 D Calcium 8.5 B-Natriuretic Peptide 107 H Quality Stroke Does the patient have a stroke diagnosis?: No VTE Prior VTE?: No VTE Risk Level:: Medical - moderate - high VTE Device Contraindication: N/A - Device Ordered VTE Drug Contraindication: N/A - Med Ordered Assessment and Plan (1) Acute metabolic encephalopathy: Status: Acute (2) Deep vein thrombosis (DVT): Status: Acute Assessment and Plan: 64M downgrade from ICU after admissin for severe sepsis/ acute hypoxic respiratory failure requiring intubation due to aspiratoin pneumonia due to pseudomas, complicated by DVT. he was given cefepime, sepsis resolved, he was treated with therapeutic lovenox, successfully extubated and downgraded to medical floor. severe sepsis present on admission and acute hypoxic respiratory failure due to pseudomal aspiration pneumonia continue cefepime started /, day 6 hypoxia resolved dvt lovenox dysphagia NPO family to decide PEG vs MORNING SHOW [employer] PRODUCER
[2020-09-10 11:45] VITALS: BP 129/75; PULSE 69; RESP 18; TEMP 36.4; O2SAT 97
[2020-09-10 14:57] VITALS: BP 132/76; PULSE 73; RESP 20; TEMP 36.5; O2SAT 98
[2020-09-10 19:01] VITALS: BP 131/76; PULSE 70; RESP 20; TEMP 36.4; O2SAT 90
[2020-09-10 23:36] VITALS: BP 165/77; PULSE 68; RESP 16; TEMP 37; O2SAT 94
[2020-09-11] MEDS: Valproic Acid (as Sodium Salt) 500 MG in Dextrose 5 % 50 ML 55 MG IV ×3 (03:17→19:03)
[2020-09-11 04:00] VITALS: BP 143/72; PULSE 71; RESP 18; TEMP 36.4; O2SAT 94
[2020-09-11] MEDS: Enoxaparin Sodium 60 MG/0.6 ML SYRINGE SUBCUT ×2 (04:30→18:03)
[2020-09-11 06:00] VITALS: BMI 22.9; BMI 23.5
[2020-09-11 07:32] VITALS: BP 132/75; PULSE 70; RESP 18; TEMP 36.2; O2SAT 97
[2020-09-11] MEDS: cefEPime HCl 2 GM in 0.9 % Sodium Chloride 50 ML IV ×2 (07:42→19:56)
[2020-09-11] MEDS: Dextrose 5 % and 0.45 % NaCl 1,000 ML 80 ML IVCONT ×2 (07:42→20:03)
--- NOTE | 2020-09-11 10:48 | P.PNIM_ITS ---
Subjective Subjective Date of Service: 09/11/20 Interval History: not talking Cardiovascular Cardiovascular: Reports no additional cardiovascular complaints Respiratory Respiratory: Reports no additional respiratory complaints Physical Exam Vital Signs: Vital Signs: Last Vital Signs Temp 97.2 F 09/11/20 07:32 Pulse 70 09/11/20 07:32 Resp 18 09/11/20 07:32 BP 132/75 09/11/20 07:32 Pulse Ox 97 09/11/20 07:32 Body Mass Index 22.9 General: Alert, tracking, not talking Resp: diminished CVS: S1,S2,RRR GI: soft, non tender, non distended Neuro: rigid, overall weak Psych: impaired insight Objective Data Current Medications Generic Name Dose Route Start Last Admin Trade Name Freq PRN Reason Stop Dose Admin Enoxaparin Sodium 60 mg 09/03/20 05:00 09/11/20 04:30 Enoxaparin Sodium 60 Mg/0.6 Ml Syringe SUBCUT 60 mg Q12H [facility] Administration Haloperidol Lactate 0.5 mg 09/06/20 11:10 09/09/20 22:23 Haloperidol Lactate 5 Mg/Ml Vial IV 0.5 mg Q1H PRN Administration anxiety/restlessness Cefepime HCl 2 gm/ Sodium 50 mls @ 100 mls/hr 09/05/20 08:00 09/11/20 08:14 Chloride IV Infused Q12H [facility] Infusion Valproic Acid 500 mg/ Dextrose 55 mls @ 55 mls/hr 09/06/20 19:15 09/11/20 04:28 IV Infused Q8H [facility] Infusion Dextrose/Sodium Chloride 1,000 mls @ 80 mls/hr 09/11/20 07:15 09/11/20 08:14 D51/2ns IVCONT 80 mls/hr .[id number] [facility] Infusion Labs CBC & Chem 7: 09/10/20 05:53 09/10/20 05:53 Quality Stroke Does the patient have a stroke diagnosis?: No VTE Prior VTE?: No VTE Risk Level:: Medical - moderate - high VTE Device Contraindication: N/A - Device Ordered VTE Drug Contraindication: N/A - Med Ordered Assessment and Plan (1) Acute metabolic encephalopathy: Status: Acute (2) Deep vein thrombosis (DVT): Status: Acute Assessment and Plan: 64M downgrade from ICU after admissin for severe sepsis/ acute hypoxic respiratory failure requiring intubation due to aspiratoin pneumonia due to pseudomas, complicated by DVT. he was given cefepime, sepsis resolved, he was treated with therapeutic lovenox, successfully extubated and downgraded to ca dical floor. severe sepsis present on admission and acute hypoxic respiratory failure due to pseudomal aspiration pneumonia continue cefepime started 09/05, day 7 hypoxia resolved dvt lovenox dysphagia NPO family has agreed to PEG
[2020-09-11 11:55] VITALS: BP 147/75; PULSE 66; RESP 18; TEMP 36.4; O2SAT 98
--- NOTE | 2020-09-11 11:57 | PM.CNGS ---
History of Present Illness Consult details Consult date: 09/11/20 Reason for consult: other (Placement of feeding tube) Requesting physician: Bladimir Oneil Narrative: This is a 64-year-old gentleman who was admitted for treatment of sepsis, acute respiratory failure thought to be secondary to aspiration pneumonia, YARELIS and hypernatremia. He required intubation, but has been successfully weaned from the ventilator. Hypernatremia and acute kidney injury resolved. Swallowing studies have been completed by speech therapy. NPO status has been recommended, and general surgery has been consulted for consideration of placement of feeding tube. A DVT of the left lower extremity has been identified and he is being treated with Lovenox 60 mg q.12 hours. At the time of my visit, he was easily arousable, but did not respond to questions. Review of Systems Review of Systems: Yes Unobtainable due to mental condition PMFSH Past Medical History Medical History Advanced dementia Afib Dementia HTN (hypertension) Mood disorder Social History Social History Household Members: None Housing: Assisted Living Facility Do you presently have visiting nurse or other home services: No Unable to assess alcohol history related to: Unable to respond Patient Tobacco Use Status: Tobacco use Unknown Use of substances other than those prescribed or required for medical reasons: Unable to respond Currently Displaying Signs/Symptoms of Drug Intoxication Withdrawal: No Advance Directives: Yes Advance Directives on File: Yes Advance Directives Date on File: 08/05/20 Do you have thoughts of harming others: None Do you have a plan to hurt others: No Plan Recently lost weight without trying: Unsure Nutrition Risks: Anorexia Poor oral hygiene: Yes service: No (UNKLNOWN) Current occupational status: retired Meds Allergies Allergy/AdvReac Type Severity Reaction Status Date / Time atenolol Allergy Unknown Verified 08/04/20 13:37 duloxetine [From Cymbalta] Allergy Unknown Verified 08/04/20 13:37 ibuprofen Allergy Unknown Verified 08/04/20 13:37 levofloxacin [From Levaquin] Allergy Unknown Verified 08/04/20 13:37 Active Medications: Current Medications Generic Name Dose Route Start Last Admin Trade Name Freq PRN Reason Stop Dose Admin Enoxaparin Sodium 60 mg 09/03/20 05:00 09/11/20 04:30 Enoxaparin Sodium 60 Mg/0.6 Ml Syringe SUBCUT 60 mg Q12H [facility] Administration Haloperidol Lactate 0.5 mg 09/06/20 11:10 09/09/20 22:23 Haloperidol Lactate 5 Mg/Ml Vial IV 0.5 mg Q1H PRN Administration anxiety/restlessness Cefepime HCl 2 gm/ Sodium 50 mls @ 100 mls/hr 09/05/20 08:00 09/11/20 08:14 Chloride IV Infused Q12H [facility] Infusion Valproic Acid 500 mg/ Dextrose 55 mls @ 55 mls/hr 09/06/20 19:15 09/11/20 11:23 IV 55 mls/hr Q8H [facility] Administration Dextrose/Sodium Chloride 1,000 mls @ 80 mls/hr 09/11/20 07:15 09/11/20 11:23 D51/2ns IVCONT 0 mls/hr .[id number] [facility] Infusion Home Medications Medication Instructions Recorded Confirmed Last Taken Type amlodipine 2.5 mg PO DAILY@89908/04/20 08/30/20 08/30/20 History aspirin 81 mg PO DAILY@89908/04/20 08/30/20 08/30/20 History cholecalciferol (vitamin D3) 25 mcg PO DAILY 08/04/20 08/30/20 08/30/20 History divalproex 1,000 mg PO BEDTIME 08/04/20 08/30/20 08/29/20 History divalproex [Depakote Sprinkles] 750 mg PO DAILY 08/04/20 08/30/20 08/30/20 History escitalopram oxalate 20 mg PO BEDTIME 08/04/20 08/30/20 08/29/20 History famotidine 40 mg PO DAILY@00 08/04/20 08/30/20 08/30/20 History lisinopril 40 mg PO DAILY 08/04/20 08/30/20 08/30/20 History olanzapine 5 mg PO DAILY 08/04/20 08/30/20 08/30/20 History olanzapine 10 mg PO BEDTIME 08/04/20 08/30/20 08/29/20 History simvastatin 20 mg PO BEDTIME 08/04/20 08/30/20 08/29/20 History trazodone 100 mg PO BEDTIME 08/04/20 08/30/20 08/29/20 History olanzapine [Zyprexa] 10 mg IM BEDTIME PRN 08/30/20 08/30/20 Unknown History Physical Exam Vital Signs: Vital Signs: Last Vital Signs Temp 97.6 F 09/11/20 11:55 Pulse 66 09/11/20 11:55 Resp 18 09/11/20 11:55 BP 147/75 H 09/11/20 11:55 Pulse Ox 98 09/11/20 11:55 Body Mass Index 22.9 Const: General: awake Nutritional Appearance: average body habitus Orientation/consciousness: oriented to person Limitations: altered mental status HENMT: Head: Yes normocephalic and Yes atraumatic Neck: Neck: Yes trachea midline and Yes supple Resp: Effort & Inspection: normal respiratory effort Auscultation: clear to auscultation bilaterally Cardio: Rate: regular rate Rhythm: regular rhythm Peripheral pulses: posterior tibial pulses present bilateral 2+ and dorsalis pedis present bilateral 2+ GI: Other: Soft, nontender, nondistended. No palpable masses. No scars evident. Rectal Exam - Male: Yes deferred Neuro: Other: Awake, unresponsive to voice General: oriented to person Extrem: General: Yes normal to inspection Results Labs Result diagrams: 09/10/20 05:53 09/10/20 05:53 Labs: Urine 08/30/20 09/02/20 Range/Units 21:41 13:33 Urine Color YELLOW DARK YELLOW Urine Appearance HAZY HAZY Urine pH 6.0 5.5 (5.0-8.0) Ur Specific [place] 1.020 >= 1.030 H (1.005-1.025) Urine Protein TRACE TRACE (NEG-TRACE) MG/DL Urine Glucose (UA) NEG NEG (NEG) MG/DL All other labs normal. Assessment and Plan (1) Dysphagia: Status: Acute (2) Deep vein thrombosis (DVT): Status: Acute 64-year-old male with dysphagia, consultation requested for insertion of feeding tube for nutritional support. He has a history of dementia. He is recovering from acute respiratory failure secondary to aspiration pneumonia requiring intubation, and is under treatment for left lower extremity DVT with Lovenox 60 mg q.12 hours. He has been evaluated by speech therapy and NPO status has been recommended. Percutaneous endoscopic gastrostomy placement can be performed for nutritional support, with placement of open gastrostomy tube if percutaneous placement is unsuccessful. I placed a call to his sister, Michael Sharp, but was unable to reach her and left a message. Procedures Date of Service Date of Service: 09/11/20
[2020-09-11 15:15] VITALS: BP 144/75; PULSE 66; RESP 20; TEMP 36.6; O2SAT 96
[2020-09-11 19:02] VITALS: BP 153/77; PULSE 64; RESP 20; TEMP 36.2; O2SAT 95
[2020-09-11 23:11] VITALS: BP 141/82; PULSE 63; RESP 18; TEMP 37; O2SAT 97
[2020-09-12] MEDS: Valproic Acid (as Sodium Salt) 500 MG in Dextrose 5 % 50 ML 55 MG IV ×3 (03:20→20:10)
[2020-09-12 03:27] VITALS: BP 131/77; PULSE 59; RESP 18; TEMP 36.6; O2SAT 97
[2020-09-12 04:33] VITALS: BMI 23.6
[2020-09-12] MEDS: Enoxaparin Sodium 60 MG/0.6 ML SYRINGE SUBCUT ×2 (04:51→18:16)
[2020-09-12 05:06] LABS: Hematocrit 33.6 % (42-52); Hemoglobin 10.4 g/dl (14.0-18.0); Mean Corpuscular Hemoglobin 27.6 pg (27.0-33.0); Mean Corpuscular Volume 89.1 fL (80-98); Mean Platelet Volume 9.2 fL (9.4-12.4); Platelet Count 356 X10*3/uL (160-400); Red Blood Count 3.77 X10*6/uL (4.60-5.80); Red Cell Distribution Width 13.7 % (11.0-16.0); White Blood Count 6.8 X10*3/uL (4.8-10.8)
[2020-09-12 05:30] LABS: Anion Gap 15 (12-20); Blood Urea Nitrogen 4 mg/dL (9-16); Calcium 8.2 mg/dL (8.4-10.2); Carbon Dioxide 22 mmol/L (22-29); Chloride 108 mmol/L (96-108); Creatinine Clr Calc Pharmacy 149.9; Estimated Glomerular Filt Rate > 60; Glucose Fasting 86 mg/dL (60-99); Potassium 3.8 mmol/L (3.3-5.1); Sodium 141 mmol/L (135-145)
[2020-09-12 07:13] LABS: Glucose, Whole Blood 86 mg/dL (60-115)
[2020-09-12 07:34] VITALS: BP 127/70; PULSE 58; RESP 18; TEMP 36.9; O2SAT 100
[2020-09-12] MEDS: Dextrose 5 % and 0.45 % NaCl 1,000 ML 80 ML IVCONT ×2 (08:05→20:13)
--- NOTE | 2020-09-12 10:52 | P.PNIM_ITS ---
Subjective Subjective Date of Service: 09/12/20 Interval History: not talking Cardiovascular Cardiovascular: Reports no additional cardiovascular complaints Respiratory Respiratory: Reports no additional respiratory complaints Physical Exam Vital Signs: Vital Signs: Last Vital Signs Temp 98.4 F 09/12/20 07:34 Pulse 58 09/12/20 07:34 Resp 18 09/12/20 07:34 BP 127/70 09/12/20 07:34 Pulse Ox 100 09/12/20 07:34 Body Mass Index 23.6 General: Alert, tracking, not talking Resp: diminished CVS: S1,S2,RRR GI: soft, non tender, non distended Neuro: rigid, overall weak Psych: impaired insight Objective Data Current Medications Generic Name Dose Route Start Last Admin Trade Name Freq PRN Reason Stop Dose Admin Enoxaparin Sodium 60 mg 09/03/20 05:00 09/12/20 04:51 Enoxaparin Sodium 60 Mg/0.6 Ml Syringe SUBCUT 60 mg Q12H [facility] Administration Haloperidol Lactate 0.5 mg 09/06/20 11:10 09/09/20 22:23 Haloperidol Lactate 5 Mg/Ml Vial IV 0.5 mg Q1H PRN Administration anxiety/restlessness Valproic Acid 500 mg/ Dextrose 55 mls @ 55 mls/hr 09/06/20 19:15 09/12/20 04:20 IV Infused Q8H [facility] Infusion Dextrose/Sodium Chloride 1,000 mls @ 80 mls/hr 09/11/20 07:15 09/12/20 08:05 D51/2ns IVCONT 80 mls/hr .[id number] [facility] Administration Labs CBC & Chem 7: 09/12/20 04:48 09/12/20 04:48 Labs: Laboratory Results - last 24 hr 09/12/20 09/12/20 09/12/20 04:48 04:48 07:09 WBC 6.8 RBC 3.77 L Hgb 10.4 L Hct 33.6 L MCV 89.1 MCH 27.6 MCHC 31.0 RDW 13.7 Plt Count 356 MPV 9.2 L Absolute Nucleated RBC 0.000 Nucleated RBC % (auto) 0.0 Sodium 141 Potassium 3.8 Chloride 108 Carbon Dioxide 22 Anion Gap 15 BUN 4 L Creatinine 0.57 Estim Creat Clear Calc 149.9 Estimated GFR > 60 POC Glucose 86 Fasting Glucose 86 Calcium 8.2 L Quality Stroke Does the patient have a stroke diagnosis?: No VTE Prior VTE?: No VTE Risk Level:: Medical - moderate - high VTE Device Contraindication: N/A - Device Ordered VTE Drug Contraindication: N/A - Med Ordered Assessment and Plan (1) Acute metabolic encephalopathy: Status: Acute (2) Deep vein thrombosis (DVT): Status: Acute Assessment and Plan: 64M downgrade from ICU after admissin for severe sepsis/ acute hypoxic respiratory failure requiring intubation due to aspiratoin pneumonia due to pseudomas, complicated by DVT. he was given cefepime, sepsis resolved, he was treated with therapeutic lovenox, successfully extubated and downgraded to [facility]. severe sepsis present on admission and acute hypoxic respiratory failure due to pseudomal aspiration pneumonia continue cefepime started 09/05, day 8 hypoxia resolved dvt lovenox dysphagia NPO family has agreed to PEG surgery appreciated, planned for either tomorrow or saturday
--- NOTE | 2020-09-12 11:16 | PM.PNGS ---
Subjective Subjective Date of Service: 09/12/20 Interval history: history reviewed - dementia, chronic respiratory failure 64M with multiple medical problems, initially admittted for sepsis secondary to pneumonia has DVT, on Lovenox has failed swallow eval Recommended to have PEG tube Explained planned procedure to sister Michael ; reviewed risks including but not limited to bleeding, infections, injury to the bowel, tube dislodgement, leak of abdominal contents around the tube, inherent risks of anesthesia as well as the benefits and alternatives- she has given verbal consent Plan to do peg tube placement tomorrow or Saturday depending on OR scheduled Physical Exam Vital Signs: Vital Signs: Last Vital Signs Temp 98.4 F 09/12/20 07:34 Pulse 58 09/12/20 07:34 Resp 18 09/12/20 07:34 BP 127/70 09/12/20 07:34 Pulse Ox 100 09/12/20 07:34 Body Mass Index 23.6 Laboratory Results - last 24 hr 09/12/20 09/12/20 09/12/20 04:48 04:48 07:09 WBC 6.8 RBC 3.77 L Hgb 10.4 L Hct 33.6 L MCV 89.1 MCH 27.6 MCHC 31.0 RDW 13.7 Plt Count 356 MPV 9.2 L Absolute Nucleated RBC 0.000 Nucleated RBC % (a uto) 0.0 Sodium 141 Potassium 3.8 Chloride 108 Carbon Dioxide 22 Anion Gap 15 BUN 4 L Creatinine 0.57 Estim Creat Clear Calc 149.9 Estimated GFR > 60 POC Glucose 86 Fasting Glucose 86 Calcium 8.2 L Const: Other: Not verbally communicative Eyes open once in a while spontaneously Resp: Effort & Inspection: normal respiratory effort GI: Other: Soft, flat, nondistended, no obvious surgical scars Progress Note: A&P Assessment and plan (1) Dysphagia: Status: Acute Assessment and Plan: Has failed swallow eval For PEG tube placement Will try to bulk case in OR for tomorrow or Saturday Fall Risk Details Current Medications: Current Medications Generic Name Dose Route Start Last Admin Trade Name Freq PRN Reason Stop Dose Admin Enoxaparin Sodium 60 mg 09/03/20 05:00 09/12/20 04:51 Enoxaparin Sodium 60 Mg/0.6 Ml Syringe SUBCUT 60 mg Q12H [facility] Administration Haloperidol Lactate 0.5 mg 09/06/20 11:10 09/09/20 22:23 Haloperidol Lactate 5 Mg/Ml Vial IV 0.5 mg Q1H PRN Administration anxiety/restlessness Valproic Acid 500 mg/ Dextrose 55 mls @ 55 mls/hr 09/06/20 19:15 09/12/20 04:20 IV Infused Q8H [facility] Infusion Dextrose/Sodium Chloride 1,000 mls @ 80 mls/hr 09/11/20 07:15 09/12/20 08:05 D51/2ns IVCONT 80 mls/hr .[id number] [facility] Administration Time Spent With Patient Time: Total time spent is greater than 50% in coordination of care (as documented) at patient's floor/unit and/or counseling patient: Time with patient: 15 - 24 minutes Procedures Date of Service Date of Service: 09/12/20 Quality Stroke Does the patient have a stroke diagnosis?: No VTE Prior VTE?: No VTE Risk Level:: Medical - moderate - high VTE Device Contraindication: N/A - Device Ordered VTE Drug Contraindication: N/A - Med Ordered
--- NOTE | 2020-09-12 11:44 | MHC.SLORD ---
Speech Language Pathology Order Status: Per chart review, pt's sister agreed to PEG placement. Procedure has not yet been scheduled. According to RN, pt remains minimally verbal and refuses PO. Pt not appropriate for PO trials this morning due to level of alertness. WATER HYDRANT INSTALLER will continue to follow as appropriate.
[2020-09-12 11:48] VITALS: BP 113/59; PULSE 62; RESP 20; TEMP 36.2; O2SAT 98
--- NOTE | 2020-09-12 13:58 | MHC.CLN ---
F/U PT TO RECEIVE PEG TODAY OR TOMORROW RECOMMEND OSMOLITE AT MAX GOAL RATE OF 70CC/HR WITH 300CC FREE WATER FLUSHES Q SHIFT TO PROVIDE 2520KCALS (30KCALS/KG), 105G PROTEIN (1.25G/KG), 2820CC FROM FORMULA AND FLUSHES (33CC/KG) START AT 20CC/HR AND INCREASE BY 10CC Q 4 HRS UNTIL MAX GOAL IS REACHED MONITOR TOLERANCE, RESIDUALS, AND LYTES
[2020-09-12 15:31] VITALS: BP 120/90; PULSE 60; RESP 15; TEMP 37.2; O2SAT 92
[2020-09-12 20:00] VITALS: BP 126/78; PULSE 60; RESP 15; TEMP 37.6; O2SAT 98
[2020-09-13] VITALS (7 sets, daily range): BP systolic 117–156; BP diastolic 64–93; PULSE 58–87; RESP 18–20; TEMP 36.3–38.2; O2SAT 97–100; BMI 23.0
[2020-09-13] MEDS: Valproic Acid (as Sodium Salt) 500 MG in Dextrose 5 % 50 ML 55 MG IV ×3 (04:16→19:03)
[2020-09-13] MEDS: Enoxaparin Sodium 60 MG/0.6 ML SYRINGE SUBCUT (04:18)
[2020-09-13 05:54] LABS: Hematocrit 31.1 % (42-52); Mean Corpuscular HGB Conc 32.2 g/dl (31.0-36.0); Mean Corpuscular Hemoglobin 27.9 pg (27.0-33.0); Mean Corpuscular Volume 86.6 fL (80-98); Mean Platelet Volume 9.2 fL (9.4-12.4); Platelet Count 402 X10*3/uL (160-400); Red Blood Count 3.59 X10*6/uL (4.60-5.80); Red Cell Distribution Width 13.5 % (11.0-16.0); White Blood Count 6.4 X10*3/uL (4.8-10.8)
[2020-09-13 06:21] LABS: Anion Gap 12 (12-20); Blood Urea Nitrogen 2 mg/dL (9-16); Calcium 8.6 mg/dL (8.4-10.2); Carbon Dioxide 28 mmol/L (22-29); Chloride 105 mmol/L (96-108); Creatinine Clr Calc Pharmacy 152.5; Estimated Glomerular Filt Rate > 60; Glucose Fasting 89 mg/dL (60-99); Potassium 3.2 mmol/L (3.3-5.1); Sodium 142 mmol/L (135-145)
[2020-09-13] MEDS: Dextrose 5 % and 0.45 % NaCl 1,000 ML 80 ML IVCONT ×2 (08:27→22:33)
--- NOTE | 2020-09-13 09:13 | MHC.SLORD ---
Speech Language Pathology Order Status: Per chart review, pt to have PEG placement either today or tomorrow depending on OR schedule. Pt is NPO. DROP WIRE OPERATOR will continue to follow as appropriate.
--- NOTE | 2020-09-13 11:28 | HO.PM.IMPN ---
Subjective Subjective Date of Service: 09/13/20 Interval History: not talking Cardiovascular Cardiovascular: Reports no additional cardiovascular complaints Respiratory Respiratory: Reports no additional respiratory complaints Physical Exam Vital Signs: Vital Signs: Last Vital Signs Temp 97.5 F 09/13/20 07:59 Pulse 68 09/13/20 07:59 Resp 20 09/13/20 07:59 BP 132/93 H 09/13/20 07:59 Pulse Ox 97 09/13/20 07:59 Body Mass Index 23.0 General: Alert, tracking, not talking Resp: diminished CVS: S1,S2,RRR GI: soft, non tender, non distended Neuro: rigid, overall weak Psych: impaired insight Objective Data Current Medications Generic Name Dose Route Start Last Admin Trade Name Freq PRN Reason Stop Dose Admin Enoxaparin Sodium 60 mg 09/03/20 05:00 09/13/20 04:18 Enoxaparin Sodium 60 Mg/0.6 Ml Syringe SUBCUT 60 mg Q12H [facility] Administration Haloperidol Lactate 0.5 mg 09/06/20 11:10 09/09/20 22:23 Haloperidol Lactate 5 Mg/Ml Vial IV 0.5 mg Q1H PRN Administration anxiety/restlessness Valproic Acid 500 mg/ Dextrose 55 mls @ 55 mls/hr 09/06/20 19:15 09/13/20 10:34 IV 55 mls/hr Q8H [facility] Administration Dextrose/Sodium Chloride 1,000 mls @ 80 mls/hr 09/11/20 07:15 09/13/20 08:27 D51/2ns IVCONT 80 mls/hr .[id number] [facility] Administration Labs CBC & Chem 7: 09/13/20 05:27 09/13/20 05:27 Labs: Laboratory Results - last 24 hr 09/13/20 09/13/20 05:27 05:27 WBC 6.4 RBC 3.59 L Hgb 10.0 L Hct 31.1 L MCV 86.6 MCH 27.9 MCHC 32.2 RDW 13.5 Plt Count 402 H MPV 9.2 L Absolute Nucleated RBC 0.000 Nucleated RBC % (auto) 0.0 Sodium 142 Potassium 3.2 L Chloride 105 Carbon Dioxide 28 Anion Gap 12 BUN 2 L Creatinine 0.56 Estim Creat Clear Calc 152.5 Estimated GFR > 60 Fasting Glucose 89 Calcium 8.6 Quality Stroke Does the patient have a stroke diagnosis?: No VTE Prior VTE?: No VTE Risk Level:: Medical - moderate - high VTE Device Contraindication: N/A - Device Ordered VTE Drug Contraindication: N/A - Med Ordered Assessment and Plan (1) Acute metabolic encephalopathy: Status: Acute (2) Deep vein thrombosis (DVT): Status: Acute Assessment and Plan: 64M downgrade from ICU after admissin for severe sepsis/ acute hypoxic respiratory failure requiring intubation due to aspiratoin pneumonia due to pseudomas, complicated by DVT. he was given cefepime, sepsis resolved, he was treated with therapeutic lovenox, successfully extubated and downgraded to medical floor. severe sepsis present on admission and acute hypoxic respiratory failure due to pseudomal aspiration pneumonia completed one week of cefepime hypoxia resolved dvt lovenox (now on hold for peg) dysphagia NPO family has agreed to PEG surgery appreciated, planned for tomorrow
--- NOTE | 2020-09-13 16:12 | PM.EVENT ---
Event Note Date of Service: 09/13/20 Event Note: was scheduled for PEG tube placement today however, got his AM rossi of Lovenox will await 24hours after last dose pt on schedule for tomorrow hold Lovenox no new changes with regards to status I have discussed plan for PEG with his sister Michael
[2020-09-14 03:29] VITALS: BP 148/76; PULSE 59; RESP 20; TEMP 37; O2SAT 97
[2020-09-14] MEDS: Valproic Acid (as Sodium Salt) 500 MG in Dextrose 5 % 50 ML 55 MG IV ×3 (04:05→20:33)
[2020-09-14 06:00] VITALS: BMI 23.5
[2020-09-14 06:56] LABS: Hematocrit 30.8 % (42-52); Hemoglobin 9.8 g/dl (14.0-18.0); Mean Corpuscular HGB Conc 31.8 g/dl (31.0-36.0); Mean Corpuscular Hemoglobin 27.6 pg (27.0-33.0); Mean Corpuscular Volume 86.8 fL (80-98); Mean Platelet Volume 9.3 fL (9.4-12.4); Platelet Count 445 X10*3/uL (160-400); Red Blood Count 3.55 X10*6/uL (4.60-5.80); Red Cell Distribution Width 13.5 % (11.0-16.0); White Blood Count 5.9 X10*3/uL (4.8-10.8)
[2020-09-14 07:19] LABS: Anion Gap 12 (12-20); Blood Urea Nitrogen 2 mg/dL (9-16); Calcium 8.5 mg/dL (8.4-10.2); Carbon Dioxide 28 mmol/L (22-29); Chloride 107 mmol/L (96-108); Creatinine Clr Calc Pharmacy 158.2; Estimated Glomerular Filt Rate > 60; Glucose Fasting 85 mg/dL (60-99); Potassium 3.3 mmol/L (3.3-5.1); Sodium 144 mmol/L (135-145)
[2020-09-14 07:27] VITALS: BP 148/90; PULSE 67; RESP 18; TEMP 36.4; O2SAT 98
[2020-09-14] MEDS: Dextrose 5 % and 0.45 % NaCl 1,000 ML 80 ML IVCONT ×2 (11:03→21:49)
--- NOTE | 2020-09-14 11:19 | P.CONAN_ITS ---
[facility] Active Problems Active Problems: All Active Problems (Updated 09/11/20 @ 12:09 by Demetra Calderon ch, MD) Dysphagia (Acute) Deep vein thrombosis (DVT) (Acute) Acute metabolic encephalopathy (Acute) Aspiration pneumonitis (Acute) Acute on chronic respiratory failure with hypoxia (Acute) Hypernatremia (Acute) Severe sepsis (Acute) Past Medical History Medical History Advanced dementia Afib Dementia HTN (hypertension) Mood disorder Social History Social History Household Members: None Housing: Assisted Living Facility Do you presently have visiting nurse or other home services: No Unable to assess alcohol history related to: Unable to respond Patient Tobacco Use Status: Tobacco use Unknown Use of substances other than those prescribed or required for medical reasons: Unable to respond Currently Displaying Signs/Symptoms of Drug Intoxication Withdrawal: No Advance Directives: Yes Advance Directives on File: Yes Advance Directives Date on File: 08/05/20 Do you have thoughts of harming others: None Do you have a plan to hurt others: No Plan Recently lost weight without trying: Unsure Nutrition Risks: Anorexia Poor oral hygiene: Yes service: No (UNKLNOWN) Current occupational status: retired Meds Allergies Allergy/AdvReac Type Severity Reaction Status Date / Time atenolol Allergy Unknown Verified 08/04/20 13:37 duloxetine [From Cymbalta] Allergy Unknown Verified 08/04/20 13:37 ibuprofen Allergy Unknown Verified 08/04/20 13:37 levofloxacin [From Levaquin] Allergy Unknown Verified 08/04/20 13:37 Active Medications: Current Medications Generic Name Dose Route Start Last Admin Trade Name Freq PRN Reason Stop Dose Admin Enoxaparin Sodium 60 mg 09/03/20 05:00 09/13/20 04:18 Enoxaparin Sodium 60 Mg/0.6 Ml Syringe SUBCUT 60 mg Q12H [facility] Administration Haloperidol Lactate 0.5 mg 09/06/20 11:10 09/09/20 22:23 Haloperidol Lactate 5 Mg/Ml Vial IV 0.5 mg Q1H PRN Administration anxiety/restlessness Valproic Acid 500 mg/ Dextrose 55 mls @ 55 mls/hr 09/06/20 19:15 09/14/20 05:11 IV Infused Q8H [facility] Infusion Dextrose/Sodium Chloride 1,000 mls @ 80 mls/hr 09/11/20 07:15 09/14/20 11:05 D51/2ns IVCONT 0 mls/hr .[id number] [facility] Infusion Home Medications Medication Instructions Recorded Confirmed Last Taken Type amlodipine 2.5 mg PO DAILY@0900 08/04/20 08/30/20 08/30/20 History aspirin 81 mg PO DAILY@0908/04/20 08/30/20 08/30/20 History cholecalciferol (vitamin D3) 25 mcg PO DAILY 08/04/20 08/30/20 08/30/20 History divalproex 1,000 mg PO BEDTIME 08/04/20 08/30/20 08/29/20 History divalproex [Depakote Sprinkles] 750 mg PO DAILY 08/04/20 08/30/20 08/30/20 Hi story escitalopram oxalate 20 mg PO BEDTIME 08/04/20 08/30/20 08/29/20 History famotidine 40 mg PO DAILY@0900 08/04/20 08/30/20 08/30/20 History lisinopril 40 mg PO DAILY 08/04/20 08/30/20 08/30/20 History olanzapine 5 mg PO DAILY 08/04/20 08/30/20 08/30/20 History olanzapine 10 mg PO BEDTIME 08/04/20 08/30/20 08/29/20 History simvastatin 20 mg PO BEDTIME 08/04/20 08/30/20 08/29/20 History trazodone 100 mg PO BEDTIME 08/04/20 08/30/20 08/29/20 History olanzapine [Zyprexa] 10 mg IM BEDTIME PRN 08/30/20 08/30/20 Unknown History Exam Exam Date and Time: September 14, 2020 1119 Height,Weight and Vital Signs: Height 6 ft 1 in Weight 80.9 kg Last Vital Signs Temp 97.5 F 09/14/20 07:27 Pulse 67 09/14/20 07:27 Resp 18 09/14/20 07:27 BP 148/90 H 09/14/20 07:27 Pulse Ox 98 09/14/20 07:27 Pertinent Lab Results Pertinent Lab Results: Laboratory Tests 08/30/20 08/30/20 08/30/20 17:20 18:24 18:25 WBC RBC Hgb Hct MCV MCH MCHC RDW Plt Count MPV Immature Gran % (Auto) Neut % (Auto) Lymph % (Auto) [place] % (Auto) Eos % (Auto) Baso % (Auto) Lymph # (Auto) [place] # (Auto) Eos # (Auto) Baso # (Auto) Abs Immat Gran (auto) Absolute Neuts (auto) Absolute Nucleated RBC Nucleated RBC % (auto) Neutrophils % (Manual) Band Neutrophils % Lymphocytes % (Manual) Monocytes % (Manual) Metamyelocytes % Myelocytes % Abs Neuts (Manual) Lymphocytes # (Manual) Monocytes # (Manual) Metamyelocytes # Myelocytes # Platelet Estimate Plt Morphology Comment RBC Morphology PT INR APTT D-Dimer VBG pH VBG pCO2 VBG pO2 VBG HCO3 VBG O2 Saturation VBG Base Excess Sodium Potassium Chloride Carbon Dioxide Anion Gap BUN Creatinine Estim Creat Clear Calc Estimated GFR POC Glucose 117 H Random Glucose Fasting Glucose Lactic Acid Calcium Phosphorus Magnesium 2.7 H Total Bilirubin Direct Bilirubin AST ALT Alkaline Phosphatase Troponin I High Sens C-Reactive Protein B-Natriuretic Peptide Total Protein Albumin Lipase 76 Procalcitonin TSH 0.86 Urine Color Urine Appearance Urine pH Ur Specific [place] Urine Protein Urine Glucose (UA) Urine Ketones Urine Blood Urine Nitrite Ur Leukocyte Esterase Urine RBC Urine WBC Ur Squamous Epith Cells Urine Bacteria Hyaline Casts Urine Mucus Stool Occult Blood Valproic Acid 2.7 L Ethyl Alcohol < 10 COVID-19 ([facility]) COVID-19 Clin Com 08/30/20 08/30/20 08/30/20 18:25 18:26 18:26 WBC RBC Hgb Hct MCV MCH MCHC RDW Plt Count MPV Immature Gran % (Auto) Neut % (Auto) Lymph % (Auto) [place] % (Auto) Eos % (Auto) Baso % (Auto) Lymph # (Auto) [place] # (Auto) Eos # (Auto) Baso # (Auto) Abs Immat Gran (auto) Absolute Neuts (auto) Absolute Nucleated RBC Nucleated RBC % (auto) Neutrophils % (Manual) Band Neutrophils % Lymphocytes % (Manual) Monocytes % (Manual) Metamyelocytes % Myelocytes % Abs Neuts (Manual) Lymphocytes # (Manual) Monocytes # (Manual) Metamyelocytes # Myelocytes # Platelet Estimate Plt Morphology Comment RBC Morphology PT INR APTT D-Dimer VBG pH VBG pCO2 VBG pO2 VBG HCO3 VBG O2 Saturation VBG Base Excess Sodium 166 H* Potassium 4.2 Chloride 128 H Carbon Dioxide 26 Anion Gap 16 BUN 64 H D Creatinine 1.94 H Estim Creat Clear Calc 40.7 Estimated GFR 35 POC Glucose Random Glucose 124 H D Fasting Glucose Lactic Acid Calcium 9.0 Phosphorus Magnesium Total Bilirubin 0.8 Direct Bilirubin 0.5 AST 31 D ALT 15 Alkaline Phosphatase 92 D Troponin I High Sens 30.7 D C-Reactive Protein B-Natriuretic Peptide 21 Total Protein 7.4 Albumin 3.2 L Lipase Procalcitonin TSH Urine Color Urine Appearance Urine pH Ur Specific [place] Urine Protein Urine Glucose (UA) Urine Ketones Urine Blood Urine Nitrite Ur Leukocyte Esterase Urine RBC Urine WBC Ur Squamous Epith Cells Urine Bacteria Hyaline Casts Urine Mucus Stool Occult Blood Valproic Acid Ethyl Alcohol COVID-19 ([facility]) COVID-19 Clin Com 08/30/20 08/30/20 08/30/20 18:26 18:26 18:27 WBC 12.3 H RBC 5.02 Hgb 14.1 Hct 46.5 MCV 92.6 MCH 28.1 MCHC 30.3 L RDW 14.2 Plt Count 205 MPV 10.2 Immature Gran % (Auto) 0.2 Neut % (Auto) 83.7 H Lymph % (Auto) 7.1 L [place] % (Auto) 8.8 Eos % (Auto) 0.0 Baso % (Auto) 0.2 Lymph # (Auto) 0.9 L [place] # (Auto) 1.1 Eos # (Auto) 0.0 Baso # (Auto) 0.0 Abs Immat Gran (auto) 0.03 Absolute Neuts (auto) 10.3 H Absolute Nucleated RBC 0.000 Nucleated RBC % (auto) 0.0 Neutrophils % (Manual) Band Neutrophils % Lymphocytes % (Manual) Monocytes % (Manual) Metamyelocytes % Myelocytes % Abs Neuts (Manual) Lymphocytes # (Manual) Monocytes # (Manual) Metamyelocytes # Myelocytes # Platelet Estimate Plt Morphology Comment RBC Morphology PT 21.9 H D INR 1.8 H APTT D-Dimer VBG pH VBG pCO2 VBG pO2 VBG HCO3 VBG O2 Saturation VBG Base Excess Sodium Potassium Chloride Carbon Dioxide Anion Gap BUN Creatinine Estim Creat Clear Calc Estimated GFR POC Glucose Random Glucose Fasting Glucose Lactic Acid 1.9 Calcium Phosphorus Magnesium Total Bilirubin Direct Bilirubin AST ALT Alkaline Phosphatase Troponin I High Sens C-Reactive Protein B-Natriuretic Peptide Total Protein Albumin Lipase Procalcitonin TSH Urine Color Urine Appearance Urine pH Ur Specific [place] Urine Protein Urine Glucose (UA) Urine Ketones Urine Blood Urine Nitrite Ur Leukocyte Esterase Urine RBC Urine WBC Ur Squamous Epith Cells Urine Bacteria Hyaline Casts Urine Mucus Stool Occult Blood Valproic Acid Ethyl Alcohol COVID-19 ([facility]) COVID-19 [place] Com 08/30/20 08/30/20 08/30/20 18:30 19:15 20:23 WBC RBC Hgb Hct MCV MCH MCHC RDW Plt Count MPV Immature Gran % (Auto) Neut % (Auto) Lymph % (Auto) [place] % (Auto) Eos % (Auto) Baso % (Auto) Lymph # (Auto) [place] # (Auto) Eos # (Auto) Baso # (Auto) Abs Immat Gran (auto) Absolute Neuts (auto) Absolute Nucleated RBC Nucleated RBC % (auto) Neutrophils % (Manual) Band Neutrophils % Lymphocytes % (Manual) Monocytes % (Manual) Metamyelocytes % Myelocytes % Abs Neuts (Manual) Lymphocytes # (Manual) Monocytes # (Manual) Metamyelocytes # Myelocytes # Platelet Estimate Plt Morphology Comment RBC Morphology PT INR APTT D-Dimer VBG pH 7.33 VBG pCO2 53 VBG pO2 99 VBG HCO3 28 H VBG O2 Saturation 96.0 VBG Base Excess 1.5 Sodium Potassium Chloride Carbon Dioxide Anion Gap BUN Creatinine Estim Creat Clear Calc Estimated GFR POC Glucose Random Glucose Fasting Glucose Lactic Acid Calcium Phosphorus Magnesium Total Bilirubin Direct Bilirubin AST ALT Alkaline Phosphatase Troponin I High Sens C-Reactive Protein B-Natriuretic Peptide Total Protein Albumin Lipase Procalcitonin TSH Urine Color Urine Appearance Urine pH Ur Specific [place] Urine Protein Urine Glucose (UA) Urine Ketones Urine Blood Urine Nitrite Ur Leukocyte Esterase Urine RBC Urine WBC Ur Squamous Epith Cells Urine Bacteria Hyaline Casts Urine Mucus Stool Occult Blood Valproic Acid Cancelled Ethyl Alcohol COVID-19 ([facility]) Negative COVID-19 [place] Com See Note 08/30/20 08/30/20 08/30/20 21:41 21:45 21:45 WBC RBC Hgb Hct MCV MCH MCHC RDW Plt Count MPV Immature Gran % (Auto) Neut % (Auto) Lymph % (Auto) [place] % (Auto) Eos % (Auto) Baso % (Auto) Lymph # (Auto) [place] # (Auto) Eos # (Auto) Baso # (Auto) Abs Immat Gran (auto) Absolute Neuts (auto) Absolute Nucleated RBC Nucleated RBC % (auto) Neutrophils % (Manual) Band Neutrophils % Lymphocytes % (Manual) Monocytes % (Manual) Metamyelocytes % Myelocytes % Abs Neuts (Manual) Lymphocytes # (Manual) Monocytes # (Manual) Metamyelocytes # Myelocytes # Platelet Estimate Plt Morphology Comment RBC Morphology PT INR APTT D-Dimer VBG pH VBG pCO2 VBG pO2 VBG HCO3 VBG O2 Saturation VBG Base Excess Sodium 163 H* Potassium 4.5 Chloride 128 H Carbon Dioxide 26 Anion Gap 14 BUN 60 H Creatinine 1.79 H Estim Creat Clear Calc 44.2 Estimated GFR 39 POC Glucose Random Glucose Fasting Glucose 133 H D Lactic Acid 1.9 Calcium 8.5 Phosphorus 4.1 Magnesium Total Bilirubin Direct Bilirubin AST ALT Alkaline Phosphatase Troponin I High Sens C-Reactive Protein B-Natriuretic Peptide Total Protein Albumin Lipase Procalcitonin TSH Urine Color YELLOW Urine Appearance HAZY Urine pH 6.0 Ur Specific [place] 1.020 Urine Protein TRACE Urine Glucose (UA) NEG Urine Ketones NEG Urine Blood 3+ H Urine Nitrite NEG Ur Leukocyte Esterase NEG Urine RBC 30-49 H Urine WBC 0 Ur Squamous Epith Cells TRACE Urine Bacteria TRACE Hyaline Casts 5-9 Urine Mucus TRACE Stool Occult Blood Valproic Acid Ethyl Alcohol COVID-19 ([facility]) COVID-19 Clin Com 08/31/20 08/31/20 08/31/20 05:18 05:18 05:18 WBC 13.4 H RBC 4.65 Hgb 13.1 L Hct 43.2 MCV 92.9 MCH 28.2 MCHC 30.3 L RDW 14.3 Plt Count 166 MPV 10.3 Immature Gran % (Auto) Cancelled Neut % (Auto) Cancelled Lymph % (Auto) Cancelled [place] % (Auto) Cancelled Eos % (Auto) Cancelled Baso % (Auto) Cancelled Lymph # (Auto) Cancelled [place] # (Auto) Cancelled Eos # (Auto) Cancelled Baso # (Auto) Cancelled Abs Immat Gran (auto) Cancelled Absolute Neuts (auto) Cancelled Absolute Nucleated RBC 0.000 Nucleated RBC % (auto) 0.0 Neutrophils % (Manual) 54 Band Neutrophils % 27 H Lymphocytes % (Manual) 9 L Monocytes % (Manual) 5 Metamyelocytes % 2 Myelocytes % 3 Abs Neuts (Manual) 10.9 H Lymphocytes # (Manual) 1.2 Monocytes # (Manual) 0.7 Metamyelocytes # 0.3 Myelocytes # 0.4 Platelet Estimate NORMAL Plt Morphology Comment NORMAL RBC Morphology NORMAL PT INR APTT D-Dimer VBG pH VBG pCO2 VBG pO2 VBG HCO3 VBG O2 Saturation VBG Base Excess Sodium 158 H Potassium 4.1 Chloride 125 H Carbon Dioxide 25 Anion Gap 12 BUN 50 H Creatinine 1.59 H Estim Creat Clear Calc 53.7 Estimated GFR 44 POC Glucose Random Glucose 164 H Fasting Glucose Lactic Acid Calcium 8.7 Phosphorus Magnesium Total Bilirubin 0.5 Direct Bilirubin AST 29 ALT 17 Alkaline Phosphatase 78 Troponin I High Sens 26.6 C-Reactive Protein 12.27 H B-Natriuretic Peptide 27 Total Protein 6.6 Albumin 2.8 L Lipase Procalcitonin TSH Urine Color Urine Appearance Urine pH Ur Specific [place] Urine Protein Urine Glucose (UA) Urine Ketones Urine Blood Urine Nitrite Ur Leukocyte Esterase Urine RBC Urine WBC Ur Squamous Epith Cells Urine Bacteria Hyaline Casts Urine Mucus Stool Occult Blood Valproic Acid Ethyl Alcohol COVID-19 ([facility]) COVID-19 Clin Com 08/31/20 08/31/20 08/31/20 05:19 11:40 11:40 WBC RBC Hgb Hct MCV MCH MCHC RDW Plt Count MPV Immature Gran % (Auto) Neut % (Auto) Lymph % (Auto) [place] % (Auto) Eos % (Auto) Baso % (Auto) Lymph # (Auto) [place] # (Auto) Eos # (Auto) Baso # (Auto) Abs Immat Gran (auto) Absolute Neuts (auto) Absolute Nucleated RBC Nucleated RBC % (auto) Neutrophils % (Manual) Band Neutrophils % Lymphocytes % (Manual) Monocytes % (Manual) Metamyelocytes % Myelocytes % Abs Neuts (Manual) Lymphocytes # (Manual) Monocytes # (Manual) Metamyelocytes # Myelocytes # Platelet Estimate Plt Morphology Comment RBC Morphology PT INR APTT D-Dimer VBG pH 7.39 VBG pCO2 39 VBG pO2 55 VBG HCO3 24 VBG O2 Saturation 79.0 VBG Base Excess -0.7 Sodium 158 H Potassium 4.0 Chloride 124 H Carbon Dioxide 23 Anion Gap 15 BUN 44 H Creatinine 1.56 H Estim Creat Clear Calc 54.7 Estimated GFR 45 POC Glucose Random Glucose 160 H Fasting Glucose Lactic Acid Calcium 8.8 Phosphorus 2.5 L Magnesium 2.5 Total Bilirubin Direct Bilirubin AST ALT Alkaline Phosphatase Troponin I High Sens C-Reactive Protein B-Natriuretic Peptide Total Protein Albumin Lipase Procalcitonin 3.45 TSH Urine Color Urine Appearance Urine pH Ur Specific [place] Urine Protein Urine Glucose (UA) Urine Ketones Urine Blood Urine Nitrite Ur Leukocyte Esterase Urine RBC Urine WBC Ur Squamous Epith Cells Urine Bacteria Hyaline Casts Urine Mucus Stool Occult Blood Valproic Acid Ethyl Alcohol COVID-19 ([facility]) COVID-19 Clin Com 08/31/20 09/01/20 09/01/20 19:54 05:19 05:19 WBC 17.0 H RBC 3.41 L D Hgb 9.5 L D Hct 31.3 L D MCV 91.8 MCH 27.9 MCHC 30.4 L RDW 14.0 Plt Count 99 L D MPV 10.9 Immature Gran % (Auto) Cancelled Neut % (Auto) Cancelled Lymph % (Auto) Cancelled [place] % (Auto) Cancelled Eos % (Auto) Cancelled Baso % (Auto) Cancelled Lymph # (Auto) Cancelled [place] # (Auto) Cancelled Eos # (Auto) Cancelled Baso # (Auto) Cancelled Abs Immat Gran (auto) Cancelled Absolute Neuts (auto) Cancelled Absolute Nucleated RBC 0.000 Nucleated RBC % (auto) 0.0 Neutrophils % (Manual) 72 Band Neutrophils % 19 H Lymphocytes % (Manual) 7 L Monocytes % (Manual) 2 Metamyelocytes % Myelocytes % Abs Neuts (Manual) 15.5 H Lymphocytes # (Manual) 1.2 Monocytes # (Manual) 0.3 Metamyelocytes # Myelocytes # Platelet Estimate SLIGHTLY DECREASED Plt Morphology Comment NORMAL RBC Morphology NORMAL PT INR APTT D-Dimer VBG pH VBG pCO2 VBG pO2 VBG HCO3 VBG O2 Saturation VBG Base Excess Sodium 155 H 151 H Potassium 3.7 3.4 Chloride 121 H 117 H Carbon Dioxide 24 25 Anion Gap 14 12 BUN 32 H 22 H Creatinine 1.32 1.04 Estim Creat Clear Calc 64.7 82.1 Estimated GFR 55 > 60 POC Glucose Random Glucose 173 H 121 H Fasting Glucose Lactic Acid Calcium 8.8 8.6 Phosphorus 1.8 L 2.6 L Magnesium 2.2 Total Bilirubin 0.6 Direct Bilirubin AST 18 ALT 9 Alkaline Phosphatase 53 D Troponin I High Sens C-Reactive Protein B-Natriuretic Peptide Total Protein 6.3 L Albumin 3.6 D Lipase Procalcitonin TSH Urine Color Urine Appearance Urine pH Ur Specific [place] Urine Protein Urine Glucose (UA) Urine Ketones Urine Blood Urine Nitrite Ur Leukocyte Esterase Urine RBC Urine WBC Ur Squamous Epith Cells Urine Bacteria Hyaline Casts Urine Mucus Stool Occult Blood Valproic Acid Ethyl Alcohol COVID-19 ([facility]) COVID-19 Clin Com 09/01/20 09/01/20 09/01/20 05:19 08:18 17:55 WBC RBC Hgb Hct MCV MCH MCHC RDW Plt Count MPV Immature Gran % (Auto) Neut % (Auto) Lymph % (Auto) [place] % (Auto) Eos % (Auto) Baso % (Auto) Lymph # (Auto) [place] # (Auto) Eos # (Auto) Baso # (Auto) Abs Immat Gran (auto) Absolute Neuts (auto) Absolute Nucleated RBC Nucleated RBC % (auto) Neutrophils % (Manual) Band Neutrophils % Lymphocytes % (Manual) Monocytes % (Manual) Metamyelocytes % Myelocytes % Abs Neuts (Manual) Lymphocytes # (Manual) Monocytes # (Manual) Metamyelocytes # Myelocytes # Platelet Estimate Plt Morphology Comment RBC Morphology PT 23.3 H INR 1.9 H APTT 39.7 H D-Dimer 96025 VBG pH 7.42 VBG pCO2 38 VBG pO2 48 VBG HCO3 25 VBG O2 Saturation 78.0 VBG Base Excess 0.9 Sodium Potassium Chloride Carbon Dioxide Anion Gap BUN Creatinine Estim Creat Clear Calc Estimated GFR POC Glucose Random Glucose Fasting Glucose Lactic Acid Calcium Phosphorus Magnesium Total Bilirubin Direct Bilirubin AST ALT Alkaline Phosphatase Troponin I High Sens C-Reactive Protein B-Natriuretic Peptide Total Protein Albumin Lipase Procalcitonin TSH Urine Color Urine Appearance Urine pH Ur Specific [place] Urine Protein Urine Glucose (UA) Urine Ketones Urine Blood Urine Nitrite Ur Leukocyte Esterase Urine RBC Urine WBC Ur Squamous Epith Cells Urine Bacteria Hyaline Casts Urine Mucus Stool Occult Blood Valproic Acid Ethyl Alcohol COVID-19 ([facility]) COVID-19 Clin Com 09/01/20 09/01/20 09/02/20 17:55 17:55 05:20 WBC 16.9 H RBC 3.70 L Hgb 10.4 L Hct 33.4 L MCV 90.3 MCH 28.1 MCHC 31.1 RDW 14.0 Plt Count 112 L MPV 10.8 Immature Gran % (Auto) Neut % (Auto) Lymph % (Auto) [place] % (Auto) Eos % (Auto) Baso % (Auto) Lymph # (Auto) [place] # (Auto) Eos # (Auto) Baso # (Auto) Abs Immat Gran (auto) Absolute Neuts (auto) Absolute Nucleated RBC 0.000 Nucleated RBC % (auto) 0.0 Neutrophils % (Manual) Band Neutrophils % Lymphocytes % (Manual) Monocytes % (Manual) Metamyelocytes % Myelocytes % Abs Neuts (Manual) Lymphocytes # (Manual) Monocytes # (Manual) Metamyelocytes # Myelocytes # Platelet Estimate Plt Morphology Comment RBC Morphology PT INR APTT D-Dimer VBG pH VBG pCO2 VBG pO2 VBG HCO3 VBG O2 Saturation VBG Base Excess Sodium 154 H Potassium 3.5 Chloride 118 H Carbon Dioxide 24 Anion Gap 16 BUN 13 Creatinine 0.95 Estim Creat Clear Calc 89.9 Estimated GFR > 60 POC Glucose Random Glucose 110 Fasting Glucose Lactic Acid Calcium 8.7 Phosphorus Magnesium Total Bilirubin Direct Bilirubin AST ALT Alkaline Phosphatase Troponin I High Sens 17.1 C-Reactive Protein B-Natriuretic Peptide 217 H Total Protein Albumin Lipase Procalcitonin TSH Urine Color Urine Appearance Urine pH Ur Specific [place] Urine Protein Urine Glucose (UA) Urine Ketones Urine Blood Urine Nitrite Ur Leukocyte Esterase Urine RBC Urine WBC Ur Squamous Epith Cells Urine Bacteria Hyaline Casts Urine Mucus Stool Occult Blood Valproic Acid Ethyl Alcohol COVID-19 ([facility]) COVID-19 Clin Com 09/02/20 09/02/20 09/02/20 05:20 05:20 05:20 WBC RBC Hgb Hct MCV MCH MCHC RDW Plt Count MPV Immature Gran % (Auto) Neut % (Auto) Lymph % (Auto) [place] % (Auto) Eos % (Auto) Baso % (Auto) Lymph # (Auto) [place] # (Auto) Eos # (Auto) Baso # (Auto) Abs Immat Gran (auto) Absolute Neuts (auto) Absolute Nucleated RBC Nucleated RBC % (auto) Neutrophils % (Manual) Band Neutrophils % Lymphocytes % (Manual) Monocytes % (Manual) Metamyelocytes % Myelocytes % Abs Neuts (Manual) Lymphocytes # (Manual) Monocytes # (Manual) Metamyelocytes # Myelocytes # Platelet Estimate Plt Morphology Comment RBC Morphology PT 17.7 H D INR 1.5 H APTT D-Dimer VBG pH VBG pCO2 VBG pO2 VBG HCO3 VBG O2 Saturation VBG Base Excess Sodium 153 H Potassium 3.1 L Chloride 118 H Carbon Dioxide 25 Anion Gap 13 BUN 10 Creatinine 0.83 Estim Creat Clear Calc 102.9 Estimated GFR > 60 POC Glucose Random Glucose 88 Fasting Glucose Lactic Acid Calcium 8.4 Phosphorus 2.0 L Magnesium 1.9 Total Bilirubin Direct Bilirubin AST ALT Alkaline Phosphatase Troponin I High Sens C-Reactive Protein B-Natriuretic Peptide Total Protein Albumin Lipase Procalcitonin 1.38 TSH Urine Color Urine Appearance Urine pH Ur Specific [place] Urine Protein Urine Glucose (UA) Urine Ketones Urine Blood Urine Nitrite Ur Leukocyte Esterase Urine RBC Urine WBC Ur Squamous Epith Cells Urine Bacteria Hyaline Casts Urine Mucus Stool Occult Blood Valproic Acid Ethyl Alcohol COVID-19 ([facility]) COVID-19 Clin Com 09/02/20 09/02/20 09/02/20 05:20 05:28 13:33 WBC RBC Hgb Hct MCV MCH MCHC RDW Plt Count MPV Immature Gran % (Auto) Neut % (Auto) Lymph % (Auto) [place] % (Auto) Eos % (Auto) Baso % (Auto) Lymph # (Auto) [place] # (Auto) Eos # (Auto) Baso # (Auto) Abs Immat Gran (auto) Absolute Neuts (auto) Absolute Nucleated RBC Nucleated RBC % (auto) Neutrophils % (Manual) Band Neutrophils % Lymphocytes % (Manual) Monocytes % (Manual) Metamyelocytes % Myelocytes % Abs Neuts (Manual) Lymphocytes # (Manual) Monocytes # (Manual) Metamyelocytes # Myelocytes # Platelet Estimate Plt Morphology Comment RBC Morphology PT INR APTT D-Dimer VBG pH 7.44 H VBG pCO2 40 VBG pO2 48 VBG HCO3 27 H VBG O2 Saturation 78.0 VBG Base Excess 3.3 Sodium Potassium Chloride Carbon Dioxide Anion Gap BUN Creatinine Estim Creat Clear Calc Estimated GFR POC Glucose Random Glucose Fasting Glucose Lactic Acid Calcium Phosphorus Magnesium Total Bilirubin Direct Bilirubin AST ALT Alkaline Phosphatase Troponin I High Sens 19.1 C-Reactive Protein B-Natriuretic Peptide 195 H Total Protein Albumin Lipase Procalcitonin TSH Urine Color DARK YELLOW Urine Appearance HAZY Urine pH 5.5 Ur Specific [place] >= 1.030 H Urine Protein TRACE Urine Glucose (UA) NEG Urine Ketones NEG Urine Blood 3+ H Urine Nitrite NEG Ur Leukocyte Esterase NEG Urine RBC 50-75 H Urine WBC 0-2 Ur Squamous Epith Cells TRACE Urine Bacteria NONE Hyaline Casts Urine Mucus Stool Occult Blood Valproic Acid Ethyl Alcohol COVID-19 ([facility]) COVID-19 Clin Com 09/02/20 09/03/20 09/03/20 23:34 05:10 05:10 WBC 10.3 RBC 3.72 L Hgb 10.2 L Hct 33.9 L MCV 91.1 MCH 27.4 MCHC 30.1 L RDW 14.3 Plt Count 101 L MPV 11.2 Immature Gran % (Auto) Neut % (Auto) Lymph % (Auto) [place] % (Auto) Eos % (Auto) Baso % (Auto) Lymph # (Auto) [place] # (Auto) Eos # (Auto) Baso # (Auto) Abs Immat Gran (auto) Absolute Neuts (auto) Absolute Nucleated RBC 0.000 Nucleated RBC % (auto) 0.0 Neutrophils % (Manual) Band Neutrophils % Lymphocytes % (Manual) Monocytes % (Manual) Metamyelocytes % Myelocytes % Abs Neuts (Manual) Lymphocytes # (Manual) Monocytes # (Manual) Metamyelocytes # Myelocytes # Platelet Estimate Plt Morphology Comment RBC Morphology PT INR APTT D-Dimer VBG pH VBG pCO2 VBG pO2 VBG HCO3 VBG O2 Saturation VBG Base Excess Sodium 153 H Potassium 3.4 Chloride 115 H Carbon Dioxide 27 Anion Gap 14 BUN 12 Creatinine 0.80 Estim Creat Clear Calc 106.8 Estimated GFR > 60 POC Glucose Random Glucose 86 Fasting Glucose Lactic Acid Calcium 8.4 Phosphorus 2.1 L Magnesium 2.2 Total Bilirubin 0.6 Direct Bilirubin AST 31 D ALT 18 Alkaline Phosphatase 92 D Troponin I High Sens C-Reactive Protein B-Natriuretic Peptide Total Protein 5.8 L Albumin 2.9 L Lipase Procalcitonin TSH Urine Color Urine Appearance Urine pH Ur Specific [place] Urine Protein Urine Glucose (UA) Urine Ketones Urine Blood Urine Nitrite Ur Leukocyte Esterase Urine RBC Urine WBC Ur Squamous Epith Cells Urine Bacteria Hyaline Casts Urine Mucus Stool Occult Blood POSITIVE Valproic Acid Ethyl Alcohol COVID-19 ([facility]) COVID-19 Clin Com 09/03/20 09/04/20 09/04/20 10:11 05:23 05:25 WBC 8.9 RBC 3.63 L Hgb 10.1 L Hct 31.9 L MCV 87.9 MCH 27.8 MCHC 31.7 RDW 14.0 Plt Count 111 L MPV 10.8 Immature Gran % (Auto) Neut % (Auto) Lymph % (Auto) [place] % (Auto) Eos % (Auto) Baso % (Auto) Lymph # (Auto) [place] # (Auto) Eos # (Auto) Baso # (Auto) Abs Immat Gran (auto) Absolute Neuts (auto) Absolute Nucleated RBC 0.000 Nucleated RBC % (auto) 0.0 Neutrophils % (Manual) Band Neutrophils % Lymphocytes % (Manual) Monocytes % (Manual) Metamyelocytes % Myelocytes % Abs Neuts (Manual) Lymphocytes # (Manual) Monocytes # (Manual) Metamyelocytes # Myelocytes # Platelet Estimate Plt Morphology Comment RBC Morphology PT 15.8 H INR 1.4 H APTT D-Dimer VBG pH 7.47 H VBG pCO2 39 VBG pO2 47 VBG HCO3 28 H VBG O2 Saturation 77.0 VBG Base Excess 5.0 Sodium Potassium Chloride Carbon Dioxide Anion Gap BUN Creatinine Estim Creat Clear Calc Estimated GFR POC Glucose Random Glucose Fasting Glucose Lactic Acid Calcium Phosphorus Magnesium Total Bilirubin Direct Bilirubin AST ALT Alkaline Phosphatase Troponin I High Sens C-Reactive Protein B-Natriuretic Peptide Total Protein Albumin Lipase Procalcitonin TSH Urine Color Urine Appearance Urine pH Ur Specific [place] Urine Protein Urine Glucose (UA) Urine Ketones Urine Blood Urine Nitrite Ur Leukocyte Esterase Urine RBC Urine WBC Ur Squamous Epith Cells Urine Bacteria Hyaline Casts Urine Mucus Stool Occult Blood Valproic Acid Ethyl Alcohol COVID-19 ([facility]) COVID-19 Clin Com 09/04/20 09/05/20 09/05/20 05:25 05:10 05:10 WBC RBC Hgb Hct MCV MCH MCHC RDW Plt Count MPV Immature Gran % (Auto) Neut % (Auto) Lymph % (Auto) [place] % (Auto) Eos % (Auto) Baso % (Auto) Lymph # (Auto) [place] # (Auto) Eos # (Auto) Baso # (Auto) Abs Immat Gran (auto) Absolute Neuts (auto) Absolute Nucleated RBC Nucleated RBC % (auto) Neutrophils % (Manual) Band Neutrophils % Lymphocytes % (Manual) Monocytes % (Manual) Metamyelocytes % Myelocytes % Abs Neuts (Manual) Lymphocytes # (Manual) Monocytes # (Manual) Metamyelocytes # Myelocytes # Platelet Estimate Plt Morphology Comment RBC Morphology PT INR APTT D-Dimer VBG pH VBG pCO2 VBG pO2 VBG HCO3 VBG O2 Saturation VBG Base Excess Sodium 144 146 H Potassium 2.9 L 3.7 D Chloride 109 H 111 H Carbon Dioxide 28 28 Anion Gap 10 L 11 L BUN 12 12 Creatinine 0.79 0.70 Estim Creat Clear Calc 108.1 122.0 Estimated GFR > 60 > 60 POC Glucose Random Glucose 144 H D 108 Fasting Glucose Lactic Acid Calcium 7.9 L 8.0 L Phosphorus 1.9 L 2.8 Magnesium 1.8 Total Bilirubin 0.6 Direct Bilirubin AST 75 H ALT 64 H Alkaline Phosphatase 142 H D Troponin I High Sens C-Reactive Protein B-Natriuretic Peptide Total Protein 5.5 L Albumin 2.5 L Lipase Procalcitonin 0.83 TSH Urine Color Urine Appearance Urine pH Ur Specific [place] Urine Protein Urine Glucose (UA) Urine Ketones Urine Blood Urine Nitrite Ur Leukocyte Esterase Urine RBC Urine WBC Ur Squamous Epith Cells Urine Bacteria Hyaline Casts Urine Mucus Stool Occult Blood Valproic Acid Ethyl Alcohol COVID-19 ([facility]) COVID-19 Clin Com 09/05/20 09/06/20 09/06/20 05:14 05:10 05:10 WBC 7.3 RBC 3.32 L Hgb 9.4 L Hct 29.1 L MCV 87.7 MCH 28.3 MCHC 32.3 RDW 14.1 Plt Count 156 L D MPV 10.6 Immature Gran % (Auto) 3.7 H Neut % (Auto) 69.5 Lymph % (Auto) 15.1 L [place] % (Auto) 10.4 Eos % (Auto) 1.2 Baso % (Auto) 0.1 Lymph # (Auto) 1.1 L [place] # (Auto) 0.8 Eos # (Auto) 0.1 Baso # (Auto) 0.0 Abs Immat Gran (auto) 0.27 H Absolute Neuts (auto) 5.1 Absolute Nucleated RBC 0.000 Nucleated RBC % (auto) 0.0 Neutrophils % (Manual) Band Neutrophils % Lymphocytes % (Manual) Monocytes % (Manual) Metamyelocytes % Myelocytes % Abs Neuts (Manual) Lymphocytes # (Manual) Monocytes # (Manual) Metamyelocytes # Myelocytes # Platelet Estimate Plt Morphology Comment RBC Morphology PT 14.6 H INR 1.3 H APTT 32.8 D-Dimer VBG pH 7.46 H VBG pCO2 42 VBG pO2 52 VBG HCO3 30 H VBG O2 Saturation 83.0 VBG Base Excess 5.9 Sodium Potassium Chloride Carbon Dioxide Anion Gap BUN Creatinine Estim Creat Clear Calc Estimated GFR POC Glucose Random Glucose Fasting Glucose Lactic Acid Calcium Phosphorus Magnesium Total Bilirubin Direct Bilirubin AST ALT Alkaline Phosphatase Troponin I High Sens C-Reactive Protein B-Natriuretic Peptide Total Protein Albumin Lipase Procalcitonin TSH Urine Color Urine Appearance Urine pH Ur Specific [place] Urine Protein Urine Glucose (UA) Urine Ketones Urine Blood Urine Nitrite Ur Leukocyte Esterase Urine RBC Urine WBC Ur Squamous Epith Cells Urine Bacteria Hyaline Casts Urine Mucus Stool Occult Blood Valproic Acid Ethyl Alcohol COVID-19 ([facility]) COVID-19 [place] Com 09/06/20 09/06/20 09/06/20 05:10 05:10 05:10 WBC RBC Hgb Hct MCV MCH MCHC RDW Plt Count MPV Immature Gran % (Auto) Neut % (Auto) Lymph % (Auto) [place] % (Auto) Eos % (Auto) Baso % (Auto) Lymph # (Auto) [place] # (Auto) Eos # (Auto) Baso # (Auto) Abs Immat Gran (auto) Absolute Neuts (auto) Absolute Nucleated RBC Nucleated RBC % (auto) Neutrophils % (Manual) Band Neutrophils % Lymphocytes % (Manual) Monocytes % (Manual) Metamyelocytes % Myelocytes % Abs Neuts (Manual) Lymphocytes # (Manual) Monocytes # (Manual) Metamyelocytes # Myelocytes # Platelet Estimate Plt Morphology Comment RBC Morphology PT INR APTT D-Dimer VBG pH VBG pCO2 VBG pO2 VBG HCO3 VBG O2 Saturation VBG Base Excess Sodium 144 Potassium 3.8 Chloride 109 H Carbon Dioxide 28 Anion Gap 11 L BUN 11 Creatinine 0.70 Estim Creat Clear Calc 122.0 Estimated GFR > 60 POC Glucose Random Glucose 97 Fasting Glucose Lactic Acid Calcium 8.5 D Phosphorus 2.2 L Magnesium 1.8 Total Bilirubin 0.5 Cancelled Direct Bilirubin 0.3 Cancelled AST 40 H D Cancelled ALT 43 H Cancelled Alkaline Phosphatase 111 D Cancelled Troponin I High Sens C-Reactive Protein B-Natriuretic Peptide 35 Total Protein 5.8 L Cancelled Albumin 3.0 L Cancelled Lipase Procalcitonin TSH Urine Color Urine Appearance Urine pH Ur Specific [place] Urine Protein Urine Glucose (UA) Urine Ketones Urine Blood Urine Nitrite Ur Leukocyte Esterase Urine RBC Urine WBC Ur Squamous Epith Cells Urine Bacteria Hyaline Casts Urine Mucus Stool Occult Blood Valproic Acid Ethyl Alcohol COVID-19 ([facility]) COVID-19 [place] Com 09/06/20 09/07/20 09/07/20 05:15 05:14 05:15 WBC 6.7 RBC 3.18 L Hgb 8.9 L Hct 27.9 L MCV 87.7 MCH 28.0 MCHC 31.9 RDW 14.2 Plt Count 194 MPV 9.7 Immature Gran % (Auto) 2.2 H Neut % (Auto) 71.2 Lymph % (Auto) 15.9 L [place] % (Auto) 9.4 Eos % (Auto) 1.2 Baso % (Auto) 0.1 Lymph # (Auto) 1.1 L [place] # (Auto) 0.6 Eos # (Auto) 0.1 Baso # (Auto) 0.0 Abs Immat Gran (auto) 0.15 H Absolute Neuts (auto) 4.8 Absolute Nucleated RBC 0.000 Nucleated RBC % (auto) 0.0 Neutrophils % (Manual) Band Neutrophils % Lymphocytes % (Manual) Monocytes % (Manual) Metamyelocytes % Myelocytes % Abs Neuts (Manual) Lymphocytes # (Manual) Monocytes # (Manual) Metamyelocytes # Myelocytes # Platelet Estimate Plt Morphology Comment RBC Morphology PT INR APTT D-Dimer VBG pH 7.49 H 7.47 H VBG pCO2 37 39 VBG pO2 43 58 VBG HCO3 29 H 29 H VBG O2 Saturation 72.0 85.0 VBG Base Excess 5.6 5.4 Sodium Potassium Chloride Carbon Dioxide Anion Gap BUN Creatinine Estim Creat Clear Calc Estimated GFR POC Glucose Random Glucose Fasting Glucose Lactic Acid Calcium Phosphorus Magnesium Total Bilirubin Direct Bilirubin AST ALT Alkaline Phosphatase Troponin I High Sens C-Reactive Protein B-Natriuretic Peptide Total Protein Albumin Lipase Procalcitonin TSH Urine Color Urine Appearance Urine pH Ur Specific [place] Urine Protein Urine Glucose (UA) Urine Ketones Urine Blood Urine Nitrite Ur Leukocyte Esterase Urine RBC Urine WBC Ur Squamous Epith Cells Urine Bacteria Hyaline Casts Urine Mucus Stool Occult Blood Valproic Acid Ethyl Alcohol COVID-19 ([facility]) COVID-19 Clin Com 09/07/20 09/07/20 09/07/20 05:15 05:15 05:15 WBC RBC Hgb Hct MCV MCH MCHC RDW Plt Count MPV Immature Gran % (Auto) Neut % (Auto) Lymph % (Auto) [place] % (Auto) Eos % (Auto) Baso % (Auto) Lymph # (Auto) [place] # (Auto) Eos # (Auto) Baso # (Auto) Abs Immat Gran (auto) Absolute Neuts (auto) Absolute Nucleated RBC Nucleated RBC % (auto) Neutrophils % (Manual) Band Neutrophils % Lymphocytes % (Manual) Monocytes % (Manual) Metamyelocytes % Myelocytes % Abs Neuts (Manual) Lymphocytes # (Manual) Monocytes # (Manual) Metamyelocytes # Myelocytes # Platelet Estimate Plt Morphology Comment RBC Morphology PT 15.0 H INR 1.3 H APTT 37.2 D-Dimer VBG pH VBG pCO2 VBG pO2 VBG HCO3 VBG O2 Saturation VBG Base Excess Sodium 145 Potassium 3.5 Chloride 109 H Carbon Dioxide 26 Anion Gap 14 BUN 11 Creatinine 0.62 Estim Creat Clear Calc 137.8 Estimated GFR > 60 POC Glucose Random Glucose 82 Fasting Glucose Lactic Acid Calcium 8.4 Phosphorus 3.1 Magnesium 1.9 Total Bilirubin Direct Bilirubin AST ALT Alkaline Phosphatase Troponin I High Sens C-Reactive Protein B-Natriuretic Peptide 44 Total Protein Albumin Lipase Procalcitonin TSH Urine Color Urine Appearance Urine pH Ur Specific [place] Urine Protein Urine Glucose (UA) Urine Ketones Urine Blood Urine Nitrite Ur Leukocyte Esterase Urine RBC Urine WBC Ur Squamous Epith Cells Urine Bacteria Hyaline Casts Urine Mucus Stool Occult Blood Valproic Acid Ethyl Alcohol COVID-19 ([facility]) COVID-19 Clin Com 09/07/20 09/08/20 09/08/20 05:15 05:13 05:13 WBC 6.6 RBC 3.40 L Hgb 9.5 L Hct 30.1 L MCV 88.5 MCH 27.9 MCHC 31.6 RDW 14.0 Plt Count 252 D MPV 9.9 Immature Gran % (Auto) 1.5 H Neut % (Auto) 72.5 Lymph % (Auto) 15.1 L [place] % (Auto) 9.9 Eos % (Auto) 0.8 Baso % (Auto) 0.2 Lymph # (Auto) 1.0 L [place] # (Auto) 0.7 Eos # (Auto) 0.1 Baso # (Auto) 0.0 Abs Immat Gran (auto) 0.10 H Absolute Neuts (auto) 4.8 Absolute Nucleated RBC 0.000 Nucleated RBC % (auto) 0.0 Neutrophils % (Manual) Band Neutrophils % Lymphocytes % (Manual) Monocytes % (Manual) Metamyelocytes % Myelocytes % Abs Neuts (Manual) Lymphocytes # (Manual) Monocytes # (Manual) Metamyelocytes # Myelocytes # Platelet Estimate Plt Morphology Comment RBC Morphology PT 15.3 H INR 1.3 H APTT 37.0 D-Dimer VBG pH VBG pCO2 VBG pO2 VBG HCO3 VBG O2 Saturation VBG Base Excess Sodium Potassium Chloride Carbon Dioxide Anion Gap BUN Creatinine Estim Creat Clear Calc Estimated GFR POC Glucose Random Glucose Fasting Glucose Lactic Acid Calcium Phosphorus Magnesium Total Bilirubin 0.8 Direct Bilirubin 0.4 AST 27 ALT 34 Alkaline Phosphatase 97 Troponin I High Sens C-Reactive Protein B-Natriuretic Peptide Total Protein 5.6 L Albumin 2.8 L Lipase Procalcitonin TSH Urine Color Urine Appearance Urine pH Ur Specific [place] Urine Protein Urine Glucose (UA) Urine Ketones Urine Blood Urine Nitrite Ur Leukocyte Esterase Urine RBC Urine WBC Ur Squamous Epith Cells Urine Bacteria Hyaline Casts Urine Mucus Stool Occult Blood Valproic Acid Ethyl Alcohol COVID-19 ([facility]) COVID-19 Clin Com 09/08/20 09/08/20 09/08/20 05:13 05:13 05:13 WBC RBC Hgb Hct MCV MCH MCHC RDW Plt Count MPV Immature Gran % (Auto) Neut % (Auto) Lymph % (Auto) [place] % (Auto) Eos % (Auto) Baso % (Auto) Lymph # (Auto) [place] # (Auto) Eos # (Auto) Baso # (Auto) Abs Immat Gran (auto) Absolute Neuts (auto) Absolute Nucleated RBC Nucleated RBC % (auto) Neutrophils % (Manual) Band Neutrophils % Lymphocytes % (Manual) Monocytes % (Manual) Metamyelocytes % Myelocytes % Abs Neuts (Manual) Lymphocytes # (Manual) Monocytes # (Manual) Metamyelocytes # Myelocytes # Platelet Estimate Plt Morphology Comment RBC Morphology PT INR APTT D-Dimer VBG pH VBG pCO2 VBG pO2 VBG HCO3 VBG O2 Saturation VBG Base Excess Sodium 144 Potassium 3.5 Chloride 107 Carbon Dioxide 28 Anion Gap 13 BUN 10 Creatinine 0.61 Estim Creat Clear Calc 140.0 Estimated GFR > 60 POC Glucose Random Glucose 76 Fasting Glucose Lactic Acid Calcium 8.6 Phosphorus 2.9 Magnesium 2.0 Total Bilirubin 0.6 Direct Bilirubin 0.3 AST 25 ALT 26 Alkaline Phosphatase 94 Troponin I High Sens C-Reactive Protein B-Natriuretic Peptide 62 Total Protein 5.9 L Albumin 2.9 L Lipase Procalcitonin TSH Urine Color Urine Appearance Urine pH Ur Specific [place] Urine Protein Urine Glucose (UA) Urine Ketones Urine Blood Urine Nitrite Ur Leukocyte Esterase Urine RBC Urine WBC Ur Squamous Epith Cells Urine Bacteria Hyaline Casts Urine Mucus Stool Occult Blood Valproic Acid Ethyl Alcohol COVID-19 ([facility]A) COVID-19 [employer] 09/08/20 09/09/20 09/09/20 05:15 06:12 06:12 WBC RBC Hgb Hct MCV MCH MCHC RDW Plt Count MPV Immature Gran % (Auto) Neut % (Auto) Lymph % (Auto) [place] % (Auto) Eos % (Auto) Baso % (Auto) Lymph # (Auto) [place] # (Auto) Eos # (Auto) Baso # (Auto) Abs Immat Gran (auto) Absolute Neuts (auto) Absolute Nucleated RBC Nucleated RBC % (auto) Neutrophils % (Manual) Band Neutrophils % Lymphocytes % (Manual) Monocytes % (Manual) Metamyelocytes % Myelocytes % Abs Neuts (Manual) Lymphocytes # (Manual) Monocytes # (Manual) Metamyelocytes # Myelocytes # Platelet Estimate Plt Morphology Comment RBC Morphology PT 16.0 H INR 1.4 H APTT 35.5 D-Dimer VBG pH 7.49 H VBG pCO2 37 VBG pO2 46 VBG HCO3 29 H VBG O2 Saturation 75.0 VBG Base Excess 5.6 Sodium 142 Potassium 3.8 Chloride 107 Carbon Dioxide 24 Anion Gap 15 BUN 9 Creatinine 0.60 Estim Creat Clear Calc 142.4 Estimated GFR > 60 POC Glucose Random Glucose 61 Fasting Glucose Lactic Acid Calcium 8.8 Phosphorus 2.6 L Magnesium 2.1 Total Bilirubin Direct Bilirubin AST ALT Alkaline Phosphatase Troponin I High Sens C-Reactive Protein B-Natriuretic Peptide Total Protein Albumin Lipase Procalcitonin TSH Urine Color Urine Appearance Urine pH Ur Specific [place] Urine Protein Urine Glucose (UA) Urine Ketones Urine Blood Urine Nitrite Ur Leukocyte Esterase Urine RBC Urine WBC Ur Squamous Epith Cells Urine Bacteria Hyaline Casts Urine Mucus Stool Occult Blood Valproic Acid Ethyl Alcohol COVID-19 ([facility]) COVID-19 [place] Com 09/09/20 09/09/20 09/09/20 06:12 06:12 06:13 WBC RBC Hgb Hct MCV MCH MCHC RDW Plt Count MPV Immature Gran % (Auto) Neut % (Auto) Lymph % (Auto) [place] % (Auto) Eos % (Auto) Baso % (Auto) Lymph # (Auto) [place] # (Auto) Eos # (Auto) Baso # (Auto) Abs Immat Gran (auto) Absolute Neuts (auto) Absolute Nucleated RBC Nucleated RBC % (auto) Neutrophils % (Manual) Band Neutrophils % Lymphocytes % (Manual) Monocytes % (Manual) Metamyelocytes % Myelocytes % Abs Neuts (Manual) Lymphocytes # (Manual) Monocytes # (Manual) Metamyelocytes # Myelocytes # Platelet Estimate Plt Morphology Comment RBC Morphology PT INR APTT D-Dimer VBG pH 7.43 VBG pCO2 41 VBG pO2 59 VBG HCO3 28 H VBG O2 Saturation 83.0 VBG Base Excess 3.6 Sodium Potassium Chloride Carbon Dioxide Anion Gap BUN Creatinine Estim Creat Clear Calc Estimated GFR POC Glucose Random Glucose Fasting Glucose Lactic Acid Calcium Phosphorus Magnesium Total Bilirubin 0.6 Direct Bilirubin 0.3 AST 26 ALT 20 Alkaline Phosphatase 95 Troponin I High Sens C-Reactive Protein B-Natriuretic Peptide 44 Total Protein 6.4 L Albumin 3.0 L Lipase Procalcitonin TSH Urine Color Urine Appearance Urine pH Ur Specific [place] Urine Protein Urine Glucose (UA) Urine Ketones Urine Blood Urine Nitrite Ur Leukocyte Esterase Urine RBC Urine WBC Ur Squamous Epith Cells Urine Bacteria Hyaline Casts Urine Mucus Stool Occult Blood Valproic Acid Ethyl Alcohol COVID-19 ([facility]) COVID-19 Clin [facility] 09/10/20 09/10/20 09/10/20 05:53 05:53 05:53 WBC 5.8 RBC 3.45 L Hgb 9.5 L Hct 29.9 L MCV 86.7 MCH 27.5 MCHC 31.8 RDW 13.5 Plt Count 356 D MPV 9.9 Immature Gran % (Auto) Neut % (Auto) Lymph % (Auto) [place] % (Auto) Eos % (Auto) Baso % (Auto) Lymph # (Auto) [place] # (Auto) Eos # (Auto) Baso # (Auto) Abs Immat Gran (auto) Absolute Neuts (auto) Absolute Nucleated RBC 0.000 Nucleated RBC % (auto) 0.0 Neutrophils % (Manual) Band Neutrophils % Lymphocytes % (Manual) Monocytes % (Manual) Metamyelocytes % Myelocytes % Abs Neuts (Manual) Lymphocytes # (Manual) Monocytes # (Manual) Metamyelocytes # Myelocytes # Platelet Estimate Plt Morphology Comment RBC Morphology PT INR APTT D-Dimer VBG pH VBG pCO2 VBG pO2 VBG HCO3 VBG O2 Saturation VBG Base Excess Sodium 143 Potassium 3.4 Chloride 108 Carbon Dioxide 26 Anion Gap 12 BUN 7 L Creatinine 0.55 Estim Creat Clear Calc 155.3 Estimated GFR > 60 POC Glucose Random Glucose Fasting Glucose 70 D Lactic Acid Calcium 8.5 Phosphorus Magnesium Total Bilirubin Direct Bilirubin AST ALT Alkaline Phosphatase Troponin I High Sens C-Reactive Protein B-Natriuretic Peptide 107 H Total Protein Albumin Lipase Procalcitonin TSH Urine Color Urine Appearance Urine pH Ur Specific [place] Urine Protein Urine Glucose (UA) Urine Ketones Urine Blood Urine Nitrite Ur Leukocyte Esterase Urine RBC Urine WBC Ur Squamous Epith Cells Urine Bacteria Hyaline Casts Urine Mucus Stool Occult Blood Valproic Acid Ethyl Alcohol COVID-19 ([facility]) COVID-19 Clin Com 09/12/20 09/12/20 09/12/20 04:48 04:48 07:09 WBC 6.8 RBC 3.77 L Hgb 10.4 L Hct 33.6 L MCV 89.1 MCH 27.6 MCHC 31.0 RDW 13.7 Plt Count 356 MPV 9.2 L Immature Gran % (Auto) Neut % (Auto) Lymph % (Auto) [place] % (Auto) Eos % (Auto) Baso % (Auto) Lymph # (Auto) [place] # (Auto) Eos # (Auto) Baso # (Auto) Abs Immat Gran (auto) Absolute Neuts (auto) Absolute Nucleated RBC 0.000 Nucleated RBC % (auto) 0.0 Neutrophils % (Manual) Band Neutrophils % Lymphocytes % (Manual) Monocytes % (Manual) Metamyelocytes % Myelocytes % Abs Neuts (Manual) Lymphocytes # (Manual) Monocytes # (Manual) Metamyelocytes # Myelocytes # Platelet Estimate Plt Morphology Comment RBC Morphology PT INR APTT D-Dimer VBG pH VBG pCO2 VBG pO2 VBG HCO3 VBG O2 Saturation VBG Base Excess Sodium 141 Potassium 3.8 Chloride 108 Carbon Dioxide 22 Anion Gap 15 BUN 4 L Creatinine 0.57 Estim Creat Clear Calc 149.9 Estimated GFR > 60 POC Glucose 86 Random Glucose Fasting Glucose 86 Lactic Acid Calcium 8.2 L Phosphorus Magnesium Total Bilirubin Direct Bilirubin AST ALT Alkaline Phosphatase Troponin I High Sens C-Reactive Protein B-Natriuretic Peptide Total Protein Albumin Lipase Procalcitonin TSH Urine Color Urine Appearance Urine pH Ur Specific [place] Urine Protein Urine Glucose (UA) Urine Ketones Urine Blood Urine Nitrite Ur Leukocyte Esterase Urine RBC Urine WBC Ur Squamous Epith Cells Urine Bacteria Hyaline Casts Urine Mucus Stool Occult Blood Valproic Acid Ethyl Alcohol COVID-19 ([facility]LLA) COVID-19 [place] [place] [employer] 09/13/20 09/13/20 09/14/20 05:27 05:27 06:16 WBC 6.4 5.9 RBC 3.59 L 3.55 L Hgb 10.0 L 9.8 L Hct 31.1 L 30.8 L MCV 86.6 86.8 MCH 27.9 27.6 MCHC 32.2 31.8 RDW 13.5 13.5 Plt Count 402 H 445 H MPV 9.2 L 9.3 L Immature Gran % (Auto) Neut % (Auto) Lymph % (Auto) [place] % (Auto) Eos % (Auto) Baso % (Auto) Lymph # (Auto) [place] # (Auto) Eos # (Auto) Baso # (Auto) Abs Immat Gran (auto) Absolute Neuts (auto) Absolute Nucleated RBC 0.000 0.000 Nucleated RBC % (auto) 0.0 0.0 Neutrophils % (Manual) Band Neutrophils % Lymphocytes % (Manual) Monocytes % (Manual) Metamyelocytes % Myelocytes % Abs Neuts (Manual) Lymphocytes # (Manual) Monocytes # (Manual) Metamyelocytes # Myelocytes # Platelet Estimate Plt Morphology Comment RBC Morphology PT INR APTT D-Dimer VBG pH VBG pCO2 VBG pO2 VBG HCO3 VBG O2 Saturation VBG Base Excess Sodium 142 Potassium 3.2 L Chloride 105 Carbon Dioxide 28 Anion Gap 12 BUN 2 L Creatinine 0.56 Estim Creat Clear Calc 152.5 Estimated GFR > 60 POC Glucose Random Glucose Fasting Glucose 89 Lactic Acid Calcium 8.6 Phosphorus Magnesium Total Bilirubin Direct Bilirubin AST ALT Alkaline Phosphatase Troponin I High Sens C-Reactive Protein B-Natriuretic Peptide Total Protein Albumin Lipase Procalcitonin TSH Urine Color Urine Appearance Urine pH Ur Specific [place] Urine Protein Urine Glucose (UA) Urine Ketones Urine Blood Urine Nitrite Ur Leukocyte Esterase Urine RBC Urine WBC Ur Squamous Epith Cells Urine Bacteria Hyaline Casts Urine Mucus Stool Occult Blood Valproic Acid Ethyl Alcohol COVID-19 ([facility]) COVID-19 Clin Com 09/14/20 06:16 WBC RBC Hgb Hct MCV MCH MCHC RDW Plt Count MPV Immature Gran % (Auto) Neut % (Auto) Lymph % (Auto) [place] % (Auto) Eos % (Auto) Baso % (Auto) Lymph # (Auto) [place] # (Auto) Eos # (Auto) Baso # (Auto) Abs Immat Gran (auto) Absolute Neuts (auto) Absolute Nucleated RBC Nucleated RBC % (auto) Neutrophils % (Manual) Band Neutrophils % Lymphocytes % (Manual) Monocytes % (Manual) Metamyelocytes % Myelocytes % Abs Neuts (Manual) Lymphocytes # (Manual) Monocytes # (Manual) Metamyelocytes # Myelocytes # Platelet Estimate Plt Morphology Comment RBC Morphology PT INR APTT D-Dimer VBG pH VBG pCO2 VBG pO2 VBG HCO3 VBG O2 Saturation VBG Base Excess Sodium 144 Potassium 3.3 Chloride 107 Carbon Dioxide 28 Anion Gap 12 BUN 2 L Creatinine 0.54 Estim Creat Clear Calc 158.2 Estimated GFR > 60 POC Glucose Random Glucose Fasting Glucose 85 Lactic Acid Calcium 8.5 Phosphorus Magnesium Total Bilirubin Direct Bilirubin AST ALT Alkaline Phosphatase Troponin I High Sens C-Reactive Protein B-Natriuretic Peptide Total Protein Albumin Lipase Procalcitonin TSH Urine Color Urine Appearance Urine pH Ur Specific [place] Urine Protein Urine Glucose (UA) Urine Ketones Urine Blood Urine Nitrite Ur Leukocyte Esterase Urine RBC Urine WBC Ur Squamous Epith Cells Urine Bacteria Hyaline Casts Urine Mucus Stool Occult Blood Valproic Acid Ethyl Alcohol COVID-19 ([facility]A) COVID-19 Clin Com Airway Mallampati Class: II TM Dist: >3cm Neck ROM: Full Assessment and Plan Assessment Anesthesia Assessment: Anesthesia Plan Discussed and Chart Reviewed Final Anesthetic Review ASA Class: III Final Preanesthetic Review: No Changes in Pt Med Stat, Meds/Allgs Chart Reviewed, Consent Obtained/Reviewed and Anes Risks/Benef Reviewed Patient Risk: Intermediate Procedure Risk: Low Assessment/Block/Sedation in SS: Assess/Block/Sedation-SS Anesthetic Plan Anesthetic Plan: MAC: Disposition: Standard PACU
[2020-09-14 11:31] VITALS: BP 105/63; PULSE 60; RESP 16; TEMP 37.2; O2SAT 99
--- NOTE | 2020-09-14 12:34 | PC.NURSE ---
Patient arrived to preop. Intake completed, info obtained from nurse assessment and medical record. Multiple calls placed to patients legal HCP Dee Sharp, , with no answer. Voice messages left with no call back. Anesthesia Dr. Low and Dr. Scherer aware. Call placed to HCP by Dr. Scherer as well, number went straight to voicemail. Procedure cancelled.
--- NOTE | 2020-09-14 12:50 | MHC.CM.PN ---
pt to have g tube placement today no dc date at this time
--- NOTE | 2020-09-14 13:31 | MHC.SLORD ---
Speech Language Pathology Order Status: Per chart review, pt is to have PEG placement today. Pt not appropriate for PO trials. At this time, skilled dysphagia therapy is no longer warranted due to mental status. If pt's condition changes or if [employer] can be of further assistance, please re-refer.
--- NOTE | 2020-09-14 14:33 | MHC.CLN ---
NUTRITION PATIENT SCHEDULE FOR PEG PLACEMENT TODAY BUT PROCEDURE CANCELLED. CONTINUE TO FOLLOW.
--- NOTE | 2020-09-14 15:14 | HO.PM.IMPN ---
Subjective Subjective Date of Service: 09/14/20 Interval History: Seen this morning, encephalopathic and lethargic Nonverbal No reported overnight events Physical Exam Vital Signs: Vital Signs: Last Vital Signs Temp 99.0 F 09/14/20 11:31 Pulse 60 09/14/20 11:31 Resp 16 09/14/20 11:31 BP 105/63 09/14/20 11:31 Pulse Ox 99 09/14/20 11:31 Body Mass Index 23.5 Const: Other: Constitutional : Encephalopathic, not in distress Neck : Normal inspection, Supple Cardiovascular : RRR, S1 S2, no lower extremity edema Respiratory : Fair bilateral air entry, no crackles, wheezes or rhonchi Gastrointestinal: soft, lax, Normal bowel sounds, Non tender Skin : Warm/Dry, No rash Neurological : Encephalopathic, not responsive, No focal deficit Objective Data Current Medications Generic Name Dose Route Start Last Admin Trade Name Freq PRN Reason Stop Dose Admin Enoxaparin Sodium 60 mg 09/03/20 05:00 09/13/20 04:18 Enoxaparin Sodium 60 Mg/0.6 Ml Syringe SUBCUT 60 mg Q12H [facility] Administration Haloperidol Lactate 0.5 mg 09/06/20 11:10 09/09/20 22:23 Haloperidol Lactate 5 Mg/Ml Vial IV 0.5 mg Q1H PRN Administration anxiety/restlessness Valproic Acid 500 mg/ Dextrose 55 mls @ 55 mls/hr 09/06/20 19:15 09/14/20 14:24 IV Infused Q8H [facility] Infusion Dextrose/Sodium Chloride 1,000 mls @ 80 mls/hr 09/11/20 07:15 09/14/20 13:26 D51/2ns IVCONT 80 mls/hr .[id number] [facility] Infusion Labs CBC & Chem 7: 09/14/20 06:16 09/14/20 06:16 Labs: Laboratory Results - last 24 hr 09/14/20 09/14/20 06:16 06:16 WBC 5.9 RBC 3.55 L Hgb 9.8 L Hct 30.8 L MCV 86.8 MCH 27.6 MCHC 31.8 RDW 13.5 Plt Count 445 H MPV 9.3 L Absolute Nucleated RBC 0.000 Nucleated RBC % (auto) 0.0 Sodium 144 Potassium 3.3 Chloride 107 Carbon Dioxide 28 Anion Gap 12 BUN 2 L Creatinine 0.54 Estim Creat Clear Calc 158.2 Estimated GFR > 60 Fasting Glucose 85 Calcium 8.5 Quality Stroke Does the patient have a stroke diagnosis?: No VTE Prior VTE?: No VTE Risk Level:: Medical - moderate - high VTE Device Contraindication: N/A - Device Ordered VTE Drug Contraindication: N/A - Med Ordered Assessment and Plan (1) Acute metabolic encephalopathy: Status: Acute (2) Deep vein thrombosis (DVT): Status: Acute Assessment and Plan: 64M downgrade from ICU after admissin for severe sepsis/ acute hypoxic respiratory failure requiring intubation due to aspiratoin pneumonia due to pseudomas, complicated by DVT. he was given cefepime, sepsis resolved, he was treated with therapeutic lovenox, successfully extubated and downgraded to medical floor. Metabolic encephalopathy Secondary to worsening dementia, inpatient delirium Avoid medications that might worsen his mentation severe sepsis present on admission acute hypoxic respiratory failure due to pseudomal aspiration pneumonia completed one week of cefepime hypoxia resolved dysphagia NPO family has agreed to PEG surgery appreciated, planned for today dvt lovenox (now on hold for peg)
[2020-09-14 15:25] VITALS: BP 118/65; PULSE 62; RESP 18; TEMP 36.6; O2SAT 95
--- NOTE | 2020-09-14 17:26 | PM.EVENT ---
Event Note Date of Service: 09/14/20 Event Note: pt was brought down to the preop area for scheduled PEG however, preop staff could not reach Michael her HCP I had discussed procedure with Michael 2 days ago and she had given her phone consent with me I called and left messages as well multiple times without success I talked to his other sister Jennifer Licona about this issue, and she says she will try to reach Michael I have rescheduled him for the morning but we cannot get hold of HCP, procedure may have to be cancelled again
[2020-09-14 19:07] VITALS: BP 123/76; PULSE 59; RESP 18; TEMP 37.6; O2SAT 98
[2020-09-14 23:02] VITALS: BP 134/77; PULSE 63; RESP 18; TEMP 36.8; O2SAT 99
[2020-09-15] VITALS (12 sets, daily range): BP systolic 100–156; BP diastolic 62–95; PULSE 54–75; RESP 16–20; TEMP 36.3–37.3; O2SAT 95–99; BMI 23.6
[2020-09-15] MEDS: Valproic Acid (as Sodium Salt) 500 MG in Dextrose 5 % 50 ML 55 MG IV ×3 (04:07→19:46)
--- NOTE | 2020-09-15 06:46 | PC.NURSE ---
pt nonverbal no s/sx pain vss. pt has a healthcare proxy. hcp sts patients not a dnr spoke to zenobia cabrera.
--- NOTE | 2020-09-15 06:51 | PC.NURSE ---
zenobia cabrera called the [facility]c rn to make aware of code status dr walker aware pt is a full code per hcp. hospitlaist will be made aware
[2020-09-15 06:54] LABS: Hemoglobin 9.9 g/dl (14.0-18.0); Mean Corpuscular HGB Conc 30.9 g/dl (31.0-36.0); Mean Corpuscular Volume 87.2 fL (80-98); Mean Platelet Volume 9.2 fL (9.4-12.4); Platelet Count 439 X10*3/uL (160-400); Red Blood Count 3.67 X10*6/uL (4.60-5.80); Red Cell Distribution Width 13.6 % (11.0-16.0); White Blood Count 5.7 X10*3/uL (4.8-10.8)
[2020-09-15 07:11] LABS: Anion Gap 12 (12-20); Blood Urea Nitrogen 3 mg/dL (9-16); Calcium 8.5 mg/dL (8.4-10.2); Carbon Dioxide 27 mmol/L (22-29); Chloride 107 mmol/L (96-108); Creatinine Clr Calc Pharmacy 152.5; Estimated Glomerular Filt Rate > 60; Glucose Random 84 mg/dL (60-115); Potassium 3.5 mmol/L (3.3-5.1); Sodium 142 mmol/L (135-145)
--- NOTE | 2020-09-15 07:18 | PC.NURSE ---
hospitalist, anesthesia, dannie and dr song aware of code status full code per hcp dr song at bedside
--- NOTE | 2020-09-15 07:50 | HO.ANESPROP2 ---
HPI - Anesthesia Eval Consult details Narrative: Pt is full code per HCP [facility] Active Problems Active Problems: All Active Problems (Updated 09/11/20 @ 12:09 by Demetra Contreras MD) Dysphagia (Acute) Deep vein thrombosis (DVT) (Acute) Acute metabolic encephalopathy (Acute) Aspiration pneumonitis (Acute) Acute on chronic respiratory failure with hypoxia (Acute) Hypernatremia (Acute) Severe sepsis (Acute) Past Medical History Medical History Advanced dementia Afib Dementia HTN (hypertension) Mood disorder Social History Social History Household Members: None Housing: Assisted Living Facility Do you presently have visiting nurse or other home services: No Unable to assess alcohol history related to: Unable to respond Patient Tobacco Use Status: Tobacco use Unknown Use of substances other than those prescribed or required for medical reasons: Unable to respond Currently Displaying Signs/Symptoms of Drug Intoxication Withdrawal: No Have you been hit, kicked, punched, or otherwise hurt by someone within the past year? If so, by whom?: No Are you DNR?: No Advance Directives: Yes Advance Directives on File: Yes Advance Directives Date on File: 08/05/20 Do you have thoughts of harming others: None Do you have a plan to hurt others: No Plan Recently lost weight without trying: Unsure Nutrition Risks: Anorexia Poor oral hygiene: Yes service: No (UNKLNOWN) Current occupational status: retired Meds Allergies Allergy/AdvReac Type Severity Reaction Status Date / Time atenolol Allergy Unknown Verified 08/04/20 13:37 duloxetine [From Cymbalta] Allergy Unknown Verified 08/04/20 13:37 ibuprofen Allergy Unknown Verified 08/04/20 13:37 levofloxacin [From Levaquin] Allergy Unknown Verified 08/04/20 13:37 Active Medications: Current Medications Generic Name Dose Route Start Last Admin Trade Name Freq PRN Reason Stop Dose Admin Enoxaparin Sodium 60 mg 09/03/20 05:00 09/15/20 04:21 Enoxaparin Sodium 60 Mg/0.6 Ml Syringe SUBCUT Not Given Q12H [facility] Haloperidol Lactate 0.5 mg 09/06/20 11:10 09/09/20 22:23 Haloperidol Lactate 5 Mg/Ml Vial IV 0.5 mg Q1H PRN Administration anxiety/restlessness Valproic Acid 500 mg/ Dextrose 55 mls @ 55 mls/hr 09/06/20 19:15 09/15/20 05:08 IV Infused Q8H [facility] Infusion Dextrose/Sodium Chloride 1,000 mls @ 80 mls/hr 09/11/20 07:15 09/14/20 21:49 D51/2ns IVCONT 80 mls/hr .[id number] [facility] Administration Home Medications Medication Instructions Recorded Confirmed Last Taken Type amlodipine 2.5 mg PO DAILY@89908/04/20 08/30/20 08/30/20 History aspirin 81 mg PO DAILY@89908/04/20 08/30/20 08/30/20 History cholecalciferol (vitamin D3) 25 mcg PO DAILY 08/04/20 08/30/20 08/30/20 History divalproex 1,000 mg PO BEDTIME 08/04/20 08/30/20 08/29/20 History divalproex [Depakote Sprinkles] 750 mg PO DAILY 08/04/20 08/30/20 08/30/20 History escitalopram oxalate 20 mg PO BEDTIME 08/04/20 08/30/20 08/29/20 History famotidine 40 mg PO DAILY@0900 08/04/20 08/30/20 08/30/20 History lisinopril 40 mg PO DAILY 08/04/20 08/30/20 08/30/20 History olanzapine 5 mg PO DAILY 08/04/20 08/30/20 08/30/20 History olanzapine 10 mg PO BEDTIME 08/04/20 08/30/20 08/29/20 History simvastatin 20 mg PO BEDTIME 08/04/20 08/30/20 08/29/20 History trazodone 100 mg PO BEDTIME 08/04/20 08/30/20 08/29/20 History olanzapine [Zyprexa] 10 mg IM BEDTIME PRN 08/30/20 08/30/20 Unknown History Exam Exam Date and Time: September 15, 2020 075 Height,Weight and Vital Signs: Height 6 ft 1 in Weight 178 lb 9.191 oz Last Vital Signs Temp 98.4 F 09/15/20 07:32 Pulse 54 09/15/20 07:32 Resp 20 09/15/20 07:32 BP 127/72 09/15/20 07:32 Pulse Ox 98 09/15/20 07:32 Pertinent Lab Results Pertinent Lab Results: Laboratory Tests 08/30/20 08/30/20 08/30/20 17:20 18:24 18:25 WBC RBC Hgb Hct MCV MCH MCHC RDW Plt Count MPV Immature Gran % (Auto) Neut % (Auto) Lymph % (Auto) [place] % (Auto) Eos % (Auto) Baso % (Auto) Lymph # (Auto) [place] # (Auto) Eos # (Auto) Baso # (Auto) Abs Immat Gran (auto) Absolute Neuts (auto) Absolute Nucleated RBC Nucleated RBC % (auto) Neutrophils % (Manual) Band Neutrophils % Lymphocytes % (Manual) Monocytes % (Manual) Metamyelocytes % Myelocytes % Abs Neuts (Manual) Lymphocytes # (Manual) Monocytes # (Manual) Metamyelocytes # Myelocytes # Platelet Estimate Plt Morphology Comment RBC Morphology PT INR APTT D-Dimer VBG pH VBG pCO2 VBG pO2 VBG HCO3 VBG O2 Saturation VBG Base Excess Sodium Potassium Chloride Carbon Dioxide Anion Gap BUN Creatinine Estim Creat Clear Calc Estimated GFR POC Glucose 117 H Random Glucose Fasting Glucose Lactic Acid Calcium Phosphorus Magnesium 2.7 H Total Bilirubin Direct Bilirubin AST ALT Alkaline Phosphatase Troponin I High Sens C-Reactive Protein B-Natriuretic Peptide Total Protein Albumin Lipase 76 Procalcitonin TSH 0.86 Urine Color Urine Appearance Urine pH Ur Specific Prosperity Urine Protein Urine Glucose (UA) Urine Ketones Urine Blood Urine Nitrite Ur Leukocyte Esterase Urine RBC Urine WBC Ur Squamous Epith Cells Urine Bacteria Hyaline Casts Urine Mucus Stool Occult Blood Valproic Acid 2.7 L Ethyl Alcohol < 10 COVID-19 ([facility]) COVID-19 Clin Com 08/30/20 08/30/20 08/30/20 18:25 18:26 18:26 WBC RBC Hgb Hct MCV MCH MCHC RDW Plt Count MPV Immature Gran % (Auto) Neut % (Auto) Lymph % (Auto) [place] % (Auto) Eos % (Auto) Baso % (Auto) Lymph # (Auto) [place] # (Auto) Eos # (Auto) Baso # (Auto) Abs Immat Gran (auto) Absolute Neuts (auto) Absolute Nucleated RBC Nucleated RBC % (auto) Neutrophils % (Manual) Band Neutrophils % Lymphocytes % (Manual) Monocytes % (Manual) Metamyelocytes % Myelocytes % Abs Neuts (Manual) Lymphocytes # (Manual) Monocytes # (Manual) Metamyelocytes # Myelocytes # Platelet Estimate Plt Morphology Comment RBC Morphology PT INR APTT D-Dimer VBG pH VBG pCO2 VBG pO2 VBG HCO3 VBG O2 Saturation VBG Base Excess Sodium 166 H* Potassium 4.2 Chloride 128 H Carbon Dioxide 26 Anion Gap 16 BUN 64 H D Creatinine 1.94 H Estim Creat Clear Calc 40.7 Estimated GFR 35 POC Glucose Random Glucose 124 H D Fasting Glucose Lactic Acid Calcium 9.0 Phosphorus Magnesium Total Bilirubin 0.8 Direct Bilirubin 0.5 AST 31 D ALT 15 Alkaline Phosphatase 92 D Troponin I High Sens 30.7 D C-Reactive Protein B-Natriuretic Peptide 21 Total Protein 7.4 Albumin 3.2 L Lipase Procalcitonin TSH Urine Color Urine Appearance Urine pH Ur Specific [place] Urine Protein Urine Glucose (UA) Urine Ketones Urine Blood Urine Nitrite Ur Leukocyte Esterase Urine RBC Urine WBC Ur Squamous Epith Cells Urine Bacteria Hyaline Casts Urine Mucus Stool Occult Blood Valproic Acid Ethyl Alcohol COVID-19 ([facility]) COVID-19 Clin Com 08/30/20 08/30/20 08/30/20 18:26 18:26 18:27 WBC 12.3 H RBC 5.02 Hgb 14.1 Hct 46.5 MCV 92.6 MCH 28.1 MCHC 30.3 L RDW 14.2 Plt Count 205 MPV 10.2 Immature Gran % (Auto) 0.2 Neut % (Auto) 83.7 H Lymph % (Auto) 7.1 L [place] % (Auto) 8.8 Eos % (Auto) 0.0 Baso % (Auto) 0.2 Lymph # (Auto) 0.9 L [place] # (Auto) 1.1 Eos # (Auto) 0.0 Baso # (Auto) 0.0 Abs Immat Gran (auto) 0.03 Absolute Neuts (auto) 10.3 H Absolute Nucleated RBC 0.000 Nucleated RBC % (auto) 0.0 Neutrophils % (Manual) Band Neutrophils % Lymphocytes % (Manual) Monocytes % (Manual) Metamyelocytes % Myelocytes % Abs Neuts (Manual) Lymphocytes # (Manual) Monocytes # (Manual) Metamyelocytes # Myelocytes # Platelet Estimate Plt Morphology Comment RBC Morphology PT 21.9 H D INR 1.8 H APTT D-Dimer VBG pH VBG pCO2 VBG pO2 VBG HCO3 VBG O2 Saturation VBG Base Excess Sodium Potassium Chloride Carbon Dioxide Anion Gap BUN Creatinine Estim Creat Clear Calc Estimated GFR POC Glucose Random Glucose Fasting Glucose Lactic Acid 1.9 Calcium Phosphorus Magnesium Total Bilirubin Direct Bilirubin AST ALT Alkaline Phosphatase Troponin I High Sens C-Reactive Protein B-Natriuretic Peptide Total Protein Albumin Lipase Procalcitonin TSH Urine Color Urine Appearance Urine pH Ur Specific [place]per[place] Urine Protein Urine Glucose (UA) Urine Ketones Urine Blood Urine Nitrite Ur Leukocyte Esterase Urine RBC Urine WBC Ur Squamous Epith Cells Urine Bacteria Hyaline Casts Urine Mucus Stool Occult Blood Valproic Acid Ethyl Alcohol COVID-19 ([facility]) COVID-19 Clin Com 08/30/20 08/30/20 08/30/20 18:30 19:15 20:23 WBC RBC Hgb Hct MCV MCH MCHC RDW Plt Count MPV Immature Gran % (Auto) Neut % (Auto) Lymph % (Auto) [place] % (Auto) Eos % (Auto) Baso % (Auto) Lymph # (Auto) [place] # (Auto) Eos # (Auto) Baso # (Auto) Abs Immat Gran (auto) Absolute Neuts (auto) Absolute Nucleated RBC Nucleated RBC % (auto) Neutrophils % (Manual) Band Neutrophils % Lymphocytes % (Manual) Monocytes % (Manual) Metamyelocytes % Myelocytes % Abs Neuts (Manual) Lymphocytes # (Manual) Monocytes # (Manual) Metamyelocytes # Myelocytes # Platelet Estimate Plt Morphology Comment RBC Morphology PT INR APTT D-Dimer VBG pH 7.33 VBG pCO2 53 VBG pO2 99 VBG HCO3 28 H VBG O2 Saturation 96.0 VBG Base Excess 1.5 Sodium Potassium Chloride Carbon Dioxide Anion Gap BUN Creatinine Estim Creat Clear Calc Estimated GFR POC Glucose Random Glucose Fasting Glucose Lactic Acid Calcium Phosphorus Magnesium Total Bilirubin Direct Bilirubin AST ALT Alkaline Phosphatase Troponin I High Sens C-Reactive Protein B-Natriuretic Peptide Total Protein Albumin Lipase Procalcitonin TSH Urine Color Urine Appearance Urine pH Ur Specific [place]per[place] Urine Protein Urine Glucose (UA) Urine Ketones Urine Blood Urine Nitrite Ur Leukocyte Esterase Urine RBC Urine WBC Ur Squamous Epith Cells Urine Bacteria Hyaline Casts Urine Mucus Stool Occult Blood Valproic Acid Cancelled Ethyl Alcohol COVID-19 ([facility]) Negative COVID-19 Clin Com See Note 08/30/20 08/30/20 08/30/20 21:41 21:45 21:45 WBC RBC Hgb Hct MCV MCH MCHC RDW Plt Count MPV Immature Gran % (Auto) Neut % (Auto) Lymph % (Auto) [place] % (Auto) Eos % (Auto) Baso % (Auto) Lymph # (Auto) [place] # (Auto) Eos # (Auto) Baso # (Auto) Abs Immat Gran (auto) Absolute Neuts (auto) Absolute Nucleated RBC Nucleated RBC % (auto) Neutrophils % (Manual) Band Neutrophils % Lymphocytes % (Manual) Monocytes % (Manual) Metamyelocytes % Myelocytes % Abs Neuts (Manual) Lymphocytes # (Manual) Monocytes # (Manual) Metamyelocytes # Myelocytes # Platelet Estimate Plt Morphology Comment RBC Morphology PT INR APTT D-Dimer VBG pH VBG pCO2 VBG pO2 VBG HCO3 VBG O2 Saturation VBG Base Excess Sodium 163 H* Potassium 4.5 Chloride 128 H Carbon Dioxide 26 Anion Gap 14 BUN 60 H Creatinine 1.79 H Estim Creat Clear Calc 44.2 Estimated GFR 39 POC Glucose Random Glucose Fasting Glucose 133 H D Lactic Acid 1.9 Calcium 8.5 Phosphorus 4.1 Magnesium Total Bilirubin Direct Bilirubin AST ALT Alkaline Phosphatase Troponin I High Sens C-Reactive Protein B-Natriuretic Peptide Total Protein Albumin Lipase Procalcitonin TSH Urine Color YELLOW Urine Appearance HAZY Urine pH 6.0 Ur Specific [place] 1.020 Urine Protein TRACE Urine Glucose (UA) NEG Urine Ketones NEG Urine Blood 3+ H Urine Nitrite NEG Ur Leukocyte Esterase NEG Urine RBC 30-49 H Urine WBC 0 Ur Squamous Epith Cells TRACE Urine Bacteria TRACE Hyaline Casts 5-9 Urine Mucus TRACE Stool Occult Blood Valproic Acid Ethyl Alcohol COVID-19 ([facility]) COVID-19 Clin Com 08/31/20 08/31/20 08/31/20 05:18 05:18 05:18 WBC 13.4 H RBC 4.65 Hgb 13.1 L Hct 43.2 MCV 92.9 MCH 28.2 MCHC 30.3 L RDW 14.3 Plt Count 166 MPV 10.3 Immature Gran % (Auto) Cancelled Neut % (Auto) Cancelled Lymph % (Auto) Cancelled [place] % (Auto) Cancelled Eos % (Auto) Cancelled Baso % (Auto) Cancelled Lymph # (Auto) Cancelled [place] # (Auto) Cancelled Eos # (Auto) Cancelled Baso # (Auto) Cancelled Abs Immat Gran (auto) Cancelled Absolute Neuts (auto) Cancelled Absolute Nucleated RBC 0.000 Nucleated RBC % (auto) 0.0 Neutrophils % (Manual) 54 Band Neutrophils % 27 H Lymphocytes % (Manual) 9 L Monocytes % (Manual) 5 Metamyelocytes % 2 Myelocytes % 3 Abs Neuts (Manual) 10.9 H Lymphocytes # (Manual) 1.2 Monocytes # (Manual) 0.7 Metamyelocytes # 0.3 Myelocytes # 0.4 Platelet Estimate NORMAL Plt Morphology Comment NORMAL RBC Morphology NORMAL PT INR APTT D-Dimer VBG pH VBG pCO2 VBG pO2 VBG HCO3 VBG O2 Saturation VBG Base Excess Sodium 158 H Potassium 4.1 Chloride 125 H Carbon Dioxide 25 Anion Gap 12 BUN 50 H Creatinine 1.59 H Estim Creat Clear Calc 53.7 Estimated GFR 44 POC Glucose Random Glucose 164 H Fasting Glucose Lactic Acid Calcium 8.7 Phosphorus Magnesium Total Bilirubin 0.5 Direct Bilirubin AST 29 ALT 17 Alkaline Phosphatase 78 Troponin I High Sens 26.6 C-Reactive Protein 12.27 H B-Natriuretic Peptide 27 Total Protein 6.6 Albumin 2.8 L Lipase Procalcitonin TSH Urine Color Urine Appearance Urine pH Ur Specific [place] Urine Protein Urine Glucose (UA) Urine Ketones Urine Blood Urine Nitrite Ur Leukocyte Esterase Urine RBC Urine WBC Ur Squamous Epith Cells Urine Bacteria Hyaline Casts Urine Mucus Stool Occult Blood Valproic Acid Ethyl Alcohol COVID-19 ([facility]) COVID-19 Clin Com 08/31/20 08/31/20 08/31/20 05:19 11:40 11:40 WBC RBC Hgb Hct MCV MCH MCHC RDW Plt Count MPV Immature Gran % (Auto) Neut % (Auto) Lymph % (Auto) [place] % (Auto) Eos % (Auto) Baso % (Auto) Lymph # (Auto) [place] # (Auto) Eos # (Auto) Baso # (Auto) Abs Immat Gran (auto) Absolute Neuts (auto) Absolute Nucleated RBC Nucleated RBC % (auto) Neutrophils % (Manual) Band Neutrophils % Lymphocytes % (Manual) Monocytes % (Manual) Metamyelocytes % Myelocytes % Abs Neuts (Manual) Lymphocytes # (Manual) Monocytes # (Manual) Metamyelocytes # Myelocytes # Platelet Estimate Plt Morphology Comment RBC Morphology PT INR APTT D-Dimer VBG pH 7.39 VBG pCO2 39 VBG pO2 55 VBG HCO3 24 VBG O2 Saturation 79.0 VBG Base Excess -0.7 Sodium 158 H Potassium 4.0 Chloride 124 H Carbon Dioxide 23 Anion Gap 15 BUN 44 H Creatinine 1.56 H Estim Creat Clear Calc 54.7 Estimated GFR 45 POC Glucose Random Glucose 160 H Fasting Glucose Lactic Acid Calcium 8.8 Phosphorus 2.5 L Magnesium 2.5 Total Bilirubin Direct Bilirubin AST ALT Alkaline Phosphatase Troponin I High Sens C-Reactive Protein B-Natriuretic Peptide Total Protein Albumin Lipase Procalcitonin 3.45 TSH Urine Color Urine Appearance Urine pH Ur Specific [place] Urine Protein Urine Glucose (UA) Urine Ketones Urine Blood Urine Nitrite Ur Leukocyte Esterase Urine RBC Urine WBC Ur Squamous Epith Cells Urine Bacteria Hyaline Casts Urine Mucus Stool Occult Blood Valproic Acid Ethyl Alcohol COVID-19 ([facility]) COVID-19 Clin Com 08/31/20 09/01/20 09/01/20 19:54 05:19 05:19 WBC 17.0 H RBC 3.41 L D Hgb 9.5 L D Hct 31.3 L D MCV 91.8 MCH 27.9 MCHC 30.4 L RDW 14.0 Plt Count 99 L D MPV 10.9 Immature Gran % (Auto) Cancelled Neut % (Auto) Cancelled Lymph % (Auto) Cancelled [place] % (Auto) Cancelled Eos % (Auto) Cancelled Baso % (Auto) Cancelled Lymph # (Auto) Cancelled [place] # (Auto) Cancelled Eos # (Auto) Cancelled Baso # (Auto) Cancelled Abs Immat Gran (auto) Cancelled Absolute Neuts (auto) Cancelled Absolute Nucleated RBC 0.000 Nucleated RBC % (auto) 0.0 Neutrophils % (Manual) 72 Band Neutrophils % 19 H Lymphocytes % (Manual) 7 L Monocytes % (Manual) 2 Metamyelocytes % Myelocytes % Abs Neuts (Manual) 15.5 H Lymphocytes # (Manual) 1.2 Monocytes # (Manual) 0.3 Metamyelocytes # Myelocytes # Platelet Estimate SLIGHTLY DECREASED Plt Morphology Comment NORMAL RBC Morphology NORMAL PT INR APTT D-Dimer VBG pH VBG pCO2 VBG pO2 VBG HCO3 VBG O2 Saturation VBG Base Excess Sodium 155 H 151 H Potassium 3.7 3.4 Chloride 121 H 117 H Carbon Dioxide 24 25 Anion Gap 14 12 BUN 32 H 22 H Creatinine 1.32 1.04 Estim Creat Clear Calc 64.7 82.1 Estimated GFR 55 > 60 POC Glucose Random Glucose 173 H 121 H Fasting Glucose Lactic Acid Calcium 8.8 8.6 Phosphorus 1.8 L 2.6 L Magnesium 2.2 Total Bilirubin 0.6 Direct Bilirubin AST 18 ALT 9 Alkaline Phosphatase 53 D Troponin I High Sens C-Reactive Protein B-Natriuretic Peptide Total Protein 6.3 L Albumin 3.6 D Lipase Procalcitonin TSH Urine Color Urine Appearance Urine pH Ur Specific [place] Urine Protein Urine Glucose (UA) Urine Ketones Urine Blood Urine Nitrite Ur Leukocyte Esterase Urine RBC Urine WBC Ur Squamous Epith Cells Urine Bacteria Hyaline Casts Urine Mucus Stool Occult Blood Valproic Acid Ethyl Alcohol COVID-19 ([facility]) COVID-19 [employer] 09/01/20 09/01/20 09/01/20 05:19 08:18 17:55 WBC RBC Hgb Hct MCV MCH MCHC RDW Plt Count MPV Immature Gran % (Auto) Neut % (Auto) Lymph % (Auto) [place] % (Auto) Eos % (Auto) Baso % (Auto) Lymph # (Auto) [place] # (Auto) Eos # (Auto) Baso # (Auto) Abs Immat Gran (auto) Absolute Neuts (auto) Absolute Nucleated RBC Nucleated RBC % (auto) Neutrophils % (Manual) Band Neutrophils % Lymphocytes % (Manual) Monocytes % (Manual) Metamyelocytes % Myelocytes % Abs Neuts (Manual) Lymphocytes # (Manual) Monocytes # (Manual) Metamyelocytes # Myelocytes # Platelet Estimate Plt Morphology Comment RBC Morphology PT 23.3 H INR 1.9 H APTT 39.7 H D-Dimer 21850 VBG pH 7.42 VBG pCO2 38 VBG pO2 48 VBG HCO3 25 VBG O2 Saturation 78.0 VBG Base Excess 0.9 Sodium Potassium Chloride Carbon Dioxide Anion Gap BUN Creatinine Estim Creat Clear Calc Estimated GFR POC Glucose Random Glucose Fasting Glucose Lactic Acid Calcium Phosphorus Magnesium Total Bilirubin Direct Bilirubin AST ALT Alkaline Phosphatase Troponin I High Sens C-Reactive Protein B-Natriuretic Peptide Total Protein Albumin Lipase Procalcitonin TSH Urine Color Urine Appearance Urine pH Ur Specific [place] Urine Protein Urine Glucose (UA) Urine Ketones Urine Blood Urine Nitrite Ur Leukocyte Esterase Urine RBC Urine WBC Ur Squamous Epith Cells Urine Bacteria Hyaline Casts Urine Mucus Stool Occult Blood Valproic Acid Ethyl Alcohol COVID-19 ([facility]) COVID-19 [employer] 09/01/20 09/01/20 09/02/20 17:55 17:55 05:20 WBC 16.9 H RBC 3.70 L Hgb 10.4 L Hct 33.4 L MCV 90.3 MCH 28.1 MCHC 31.1 RDW 14.0 Plt Count 112 L MPV 10.8 Immature Gran % (Auto) Neut % (Auto) Lymph % (Auto) [place] % (Auto) Eos % (Auto) Baso % (Auto) Lymph # (Auto) [place] # (Auto) Eos # (Auto) Baso # (Auto) Abs Immat Gran (auto) Absolute Neuts (auto) Absolute Nucleated RBC 0.000 Nucleated RBC % (auto) 0.0 Neutrophils % (Manual) Band Neutrophils % Lymphocytes % (Manual) Monocytes % (Manual) Metamyelocytes % Myelocytes % Abs Neuts (Manual) Lymphocytes # (Manual) Monocytes # (Manual) Metamyelocytes # Myelocytes # Platelet Estimate Plt Morphology Comment RBC Morphology PT INR APTT D-Dimer VBG pH VBG pCO2 VBG pO2 VBG HCO3 VBG O2 Saturation VBG Base Excess Sodium 154 H Potassium 3.5 Chloride 118 H Carbon Dioxide 24 Anion Gap 16 BUN 13 Creatinine 0.95 Estim Creat Clear Calc 89.9 Estimated GFR > 60 POC Glucose Random Glucose 110 Fasting Glucose Lactic Acid Calcium 8.7 Phosphorus Magnesium Total Bilirubin Direct Bilirubin AST ALT Alkaline Phosphatase Troponin I High Sens 17.1 C-Reactive Protein B-Natriuretic Peptide 217 H Total Protein Albumin Lipase Procalcitonin TSH Urine Color Urine Appearance Urine pH Ur Specific [place] Urine Protein Urine Glucose (UA) Urine Ketones Urine Blood Urine Nitrite Ur Leukocyte Esterase Urine RBC Urine WBC Ur Squamous Epith Cells Urine Bacteria Hyaline Casts Urine Mucus Stool Occult Blood Valproic Acid Ethyl Alcohol COVID-19 ([facility]) COVID-19 Clin Com 09/02/20 09/02/20 09/02/20 05:20 05:20 05:20 WBC RBC Hgb Hct MCV MCH MCHC RDW Plt Count MPV Immature Gran % (Auto) Neut % (Auto) Lymph % (Auto) [place] % (Auto) Eos % (Auto) Baso % (Auto) Lymph # (Auto) [place] # (Auto) Eos # (Auto) Baso # (Auto) Abs Immat Gran (auto) Absolute Neuts (auto) Absolute Nucleated RBC Nucleated RBC % (auto) Neutrophils % (Manual) Band Neutrophils % Lymphocytes % (Manual) Monocytes % (Manual) Metamyelocytes % Myelocytes % Abs Neuts (Manual) Lymphocytes # (Manual) Monocytes # (Manual) Metamyelocytes # Myelocytes # Platelet Estimate Plt Morphology Comment RBC Morphology PT 17.7 H D INR 1.5 H APTT D-Dimer VBG pH VBG pCO2 VBG pO2 VBG HCO3 VBG O2 Saturation VBG Base Excess Sodium 153 H Potassium 3.1 L Chloride 118 H Carbon Dioxide 25 Anion Gap 13 BUN 10 Creatinine 0.83 Estim Creat Clear Calc 102.9 Estimated GFR > 60 POC Glucose Random Glucose 88 Fasting Glucose Lactic Acid Calcium 8.4 Phosphorus 2.0 L Magnesium 1.9 Total Bilirubin Direct Bilirubin AST ALT Alkaline Phosphatase Troponin I High Sens C-Reactive Protein B-Natriuretic Peptide Total Protein Albumin Lipase Procalcitonin 1.38 TSH Urine Color Urine Appearance Urine pH Ur Specific [place] Urine Protein Urine Glucose (UA) Urine Ketones Urine Blood Urine Nitrite Ur Leukocyte Esterase Urine RBC Urine WBC Ur Squamous Epith Cells Urine Bacteria Hyaline Casts Urine Mucus Stool Occult Blood Valproic Acid Ethyl Alcohol COVID-19 ([facility]) COVID-19 Clin Com 09/02/20 09/02/20 09/02/20 05:20 05:28 13:33 WBC RBC Hgb Hct MCV MCH MCHC RDW Plt Count MPV Immature Gran % (Auto) Neut % (Auto) Lymph % (Auto) [place] % (Auto) Eos % (Auto) Baso % (Auto) Lymph # (Auto) [place] # (Auto) Eos # (Auto) Baso # (Auto) Abs Immat Gran (auto) Absolute Neuts (auto) Absolute Nucleated RBC Nucleated RBC % (auto) Neutrophils % (Manual) Band Neutrophils % Lymphocytes % (Manual) Monocytes % (Manual) Metamyelocytes % Myelocytes % Abs Neuts (Manual) Lymphocytes # (Manual) Monocytes # (Manual) Metamyelocytes # Myelocytes # Platelet Estimate Plt Morphology Comment RBC Morphology PT INR APTT D-Dimer VBG pH 7.44 H VBG pCO2 40 VBG pO2 48 VBG HCO3 27 H VBG O2 Saturation 78.0 VBG Base Excess 3.3 Sodium Potassium Chloride Carbon Dioxide Anion Gap BUN Creatinine Estim Creat Clear Calc Estimated GFR POC Glucose Random Glucose Fasting Glucose Lactic Acid Calcium Phosphorus Magnesium Total Bilirubin Direct Bilirubin AST ALT Alkaline Phosphatase Troponin I High Sens 19.1 C-Reactive Protein B-Natriuretic Peptide 195 H Total Protein Albumin Lipase Procalcitonin TSH Urine Color DARK YELLOW Urine Appearance HAZY Urine pH 5.5 Ur Specific [place] >= 1.030 H Urine Protein TRACE Urine Glucose (UA) NEG Urine Ketones NEG Urine Blood 3+ H Urine Nitrite NEG Ur Leukocyte Esterase NEG Urine RBC 50-75 H Urine WBC 0-2 Ur Squamous Epith Cells TRACE Urine Bacteria NONE Hyaline Casts Urine Mucus Stool Occult Blood Valproic Acid Ethyl Alcohol COVID-19 ([facility]) COVID-19 Clin Com 09/02/20 09/03/20 09/03/20 23:34 05:10 05:10 WBC 10.3 RBC 3.72 L Hgb 10.2 L Hct 33.9 L MCV 91.1 MCH 27.4 MCHC 30.1 L RDW 14.3 Plt Count 101 L MPV 11.2 Immature Gran % (Auto) Neut % (Auto) Lymph % (Auto) [place] % (Auto) Eos % (Auto) Baso % (Auto) Lymph # (Auto) [place] # (Auto) Eos # (Auto) Baso # (Auto) Abs Immat Gran (auto) Absolute Neuts (auto) Absolute Nucleated RBC 0.000 Nucleated RBC % (auto) 0.0 Neutrophils % (Manual) Band Neutrophils % Lymphocytes % (Manual) Monocytes % (Manual) Metamyelocytes % Myelocytes % Abs Neuts (Manual) Lymphocytes # (Manual) Monocytes # (Manual) Metamyelocytes # Myelocytes # Platelet Estimate Plt Morphology Comment RBC Morphology PT INR APTT D-Dimer VBG pH VBG pCO2 VBG pO2 VBG HCO3 VBG O2 Saturation VBG Base Excess Sodium 153 H Potassium 3.4 Chloride 115 H Carbon Dioxide 27 Anion Gap 14 BUN 12 Creatinine 0.80 Estim Creat Clear Calc 106.8 Estimated GFR > 60 POC Glucose Random Glucose 86 Fasting Glucose Lactic Acid Calcium 8.4 Phosphorus 2.1 L Magnesium 2.2 Total Bilirubin 0.6 Direct Bilirubin AST 31 D ALT 18 Alkaline Phosphatase 92 D Troponin I High Sens C-Reactive Protein B-Natriuretic Peptide Total Protein 5.8 L Albumin 2.9 L Lipase Procalcitonin TSH Urine Color Urine Appearance Urine pH Ur Specific [place] Urine Protein Urine Glucose (UA) Urine Ketones Urine Blood Urine Nitrite Ur Leukocyte Esterase Urine RBC Urine WBC Ur Squamous Epith Cells Urine Bacteria Hyaline Casts Urine Mucus Stool Occult Blood POSITIVE Valproic Acid Ethyl Alcohol COVID-19 ([facility]) COVID-19 Clin Com 09/03/20 09/04/20 09/04/20 10:11 05:23 05:25 WBC 8.9 RBC 3.63 L Hgb 10.1 L Hct 31.9 L MCV 87.9 MCH 27.8 MCHC 31.7 RDW 14.0 Plt Count 111 L MPV 10.8 Immature Gran % (Auto) Neut % (Auto) Lymph % (Auto) [place] % (Auto) Eos % (Auto) Baso % (Auto) Lymph # (Auto) [place] # (Auto) Eos # (Auto) Baso # (Auto) Abs Immat Gran (auto) Absolute Neuts (auto) Absolute Nucleated RBC 0.000 Nucleated RBC % (auto) 0.0 Neutrophils % (Manual) Band Neutrophils % Lymphocytes % (Manual) Monocytes % (Manual) Metamyelocytes % Myelocytes % Abs Neuts (Manual) Lymphocytes # (Manual) Monocytes # (Manual) Metamyelocytes # Myelocytes # Platelet Estimate Plt Morphology Comment RBC Morphology PT 15.8 H INR 1.4 H APTT D-Dimer VBG pH 7.47 H VBG pCO2 39 VBG pO2 47 VBG HCO3 28 H VBG O2 Saturation 77.0 VBG Base Excess 5.0 Sodium Potassium Chloride Carbon Dioxide Anion Gap BUN Creatinine Estim Creat Clear Calc Estimated GFR POC Glucose Random Glucose Fasting Glucose Lactic Acid Calcium Phosphorus Magnesium Total Bilirubin Direct Bilirubin AST ALT Alkaline Phosphatase Troponin I High Sens C-Reactive Protein B-Natriuretic Peptide Total Protein Albumin Lipase Procalcitonin TSH Urine Color Urine Appearance Urine pH Ur Specific Prosperity Urine Protein Urine Glucose (UA) Urine Ketones Urine Blood Urine Nitrite Ur Leukocyte Esterase Urine RBC Urine WBC Ur Squamous Epith Cells Urine Bacteria Hyaline Casts Urine Mucus Stool Occult Blood Valproic Acid Ethyl Alcohol COVID-19 ([facility]) COVID-19 Clin Com 09/04/20 09/05/20 09/05/20 05:25 05:10 05:10 WBC RBC Hgb Hct MCV MCH MCHC RDW Plt Count MPV Immature Gran % (Auto) Neut % (Auto) Lymph % (Auto) [place] % (Auto) Eos % (Auto) Baso % (Auto) Lymph # (Auto) [place] # (Auto) Eos # (Auto) Baso # (Auto) Abs Immat Gran (auto) Absolute Neuts (auto) Absolute Nucleated RBC Nucleated RBC % (auto) Neutrophils % (Manual) Band Neutrophils % Lymphocytes % (Manual) Monocytes % (Manual) Metamyelocytes % Myelocytes % Abs Neuts (Manual) Lymphocytes # (Manual) Monocytes # (Manual) Metamyelocytes # Myelocytes # Platelet Estimate Plt Morphology Comment RBC Morphology PT INR APTT D-Dimer VBG pH VBG pCO2 VBG pO2 VBG HCO3 VBG O2 Saturation VBG Base Excess Sodium 144 146 H Potassium 2.9 L 3.7 D Chloride 109 H 111 H Carbon Dioxide 28 28 Anion Gap 10 L 11 L BUN 12 12 Creatinine 0.79 0.70 Estim Creat Clear Calc 108.1 122.0 Estimated GFR > 60 > 60 POC Glucose Random Glucose 144 H D 108 Fasting Glucose Lactic Acid Calcium 7.9 L 8.0 L Phosphorus 1.9 L 2.8 Magnesium 1.8 Total Bilirubin 0.6 Direct Bilirubin AST 75 H ALT 64 H Alkaline Phosphatase 142 H D Troponin I High Sens C-Reactive Protein B-Natriuretic Peptide Total Protein 5.5 L Albumin 2.5 L Lipase Procalcitonin 0.83 TSH Urine Color Urine Appearance Urine pH Ur Specific Prosperity Urine Protein Urine Glucose (UA) Urine Ketones Urine Blood Urine Nitrite Ur Leukocyte Esterase Urine RBC Urine WBC Ur Squamous Epith Cells Urine Bacteria Hyaline Casts Urine Mucus Stool Occult Blood Valproic Acid Ethyl Alcohol COVID-19 ([facility]) COVID-19 Clin Com 09/05/20 09/06/20 09/06/20 05:14 05:10 05:10 WBC 7.3 RBC 3.32 L Hgb 9.4 L Hct 29.1 L MCV 87.7 MCH 28.3 MCHC 32.3 RDW 14.1 Plt Count 156 L D MPV 10.6 Immature Gran % (Auto) 3.7 H Neut % (Auto) 69.5 Lymph % (Auto) 15.1 L [place] % (Auto) 10.4 Eos % (Auto) 1.2 Baso % (Auto) 0.1 Lymph # (Auto) 1.1 L [place] # (Auto) 0.8 Eos # (Auto) 0.1 Baso # (Auto) 0.0 Abs Immat Gran (auto) 0.27 H Absolute Neuts (auto) 5.1 Absolute Nucleated RBC 0.000 Nucleated RBC % (auto) 0.0 Neutrophils % (Manual) Band Neutrophils % Lymphocytes % (Manual) Monocytes % (Manual) Metamyelocytes % Myelocytes % Abs Neuts (Manual) Lymphocytes # (Manual) Monocytes # (Manual) Metamyelocytes # Myelocytes # Platelet Estimate Plt Morphology Comment RBC Morphology PT 14.6 H INR 1.3 H APTT 32.8 D-Dimer VBG pH 7.46 H VBG pCO2 42 VBG pO2 52 VBG HCO3 30 H VBG O2 Saturation 83.0 VBG Base Excess 5.9 Sodium Potassium Chloride Carbon Dioxide Anion Gap BUN Creatinine Estim Creat Clear Calc Estimated GFR POC Glucose Random Glucose Fasting Glucose Lactic Acid Calcium Phosphorus Magnesium Total Bilirubin Direct Bilirubin AST ALT Alkaline Phosphatase Troponin I High Sens C-Reactive Protein B-Natriuretic Peptide Total Protein Albumin Lipase Procalcitonin TSH Urine Color Urine Appearance Urine pH Ur Specific Prosperity Urine Protein Urine Glucose (UA) Urine Ketones Urine Blood Urine Nitrite Ur Leukocyte Esterase Urine RBC Urine WBC Ur Squamous Epith Cells Urine Bacteria Hyaline Casts Urine Mucus Stool Occult Blood Valproic Acid Ethyl Alcohol COVID-19 ([facility]) COVID-19 Clin Com 09/06/20 09/06/20 09/06/20 05:10 05:10 05:10 WBC RBC Hgb Hct MCV MCH MCHC RDW Plt Count MPV Immature Gran % (Auto) Neut % (Auto) Lymph % (Auto) [place] % (Auto) Eos % (Auto) Baso % (Auto) Lymph # (Auto) [place] # (Auto) Eos # (Auto) Baso # (Auto) Abs Immat Gran (auto) Absolute Neuts (auto) Absolute Nucleated RBC Nucleated RBC % (auto) Neutrophils % (Manual) Band Neutrophils % Lymphocytes % (Manual) Monocytes % (Manual) Metamyelocytes % Myelocytes % Abs Neuts (Manual) Lymphocytes # (Manual) Monocytes # (Manual) Metamyelocytes # Myelocytes # Platelet Estimate Plt Morphology Comment RBC Morphology PT INR APTT D-Dimer VBG pH VBG pCO2 VBG pO2 VBG HCO3 VBG O2 Saturation VBG Base Excess Sodium 144 Potassium 3.8 Chloride 109 H Carbon Dioxide 28 Anion Gap 11 L BUN 11 Creatinine 0.70 Estim Creat Clear Calc 122.0 Estimated GFR > 60 POC Glucose Random Glucose 97 Fasting Glucose Lactic Acid Calcium 8.5 D Phosphorus 2.2 L Magnesium 1.8 Total Bilirubin 0.5 Cancelled Direct Bilirubin 0.3 Cancelled AST 40 H D Cancelled ALT 43 H Cancelled Alkaline Phosphatase 111 D Cancelled Troponin I High Sens C-Reactive Protein B-Natriuretic Peptide 35 Total Protein 5.8 L Cancelled Albumin 3.0 L Cancelled Lipase Procalcitonin TSH Urine Color Urine Appearance Urine pH Ur Specific Prosperity Urine Protein Urine Glucose (UA) Urine Ketones Urine Blood Urine Nitrite Ur Leukocyte Esterase Urine RBC Urine WBC Ur Squamous Epith Cells Urine Bacteria Hyaline Casts Urine Mucus Stool Occult Blood Valproic Acid Ethyl Alcohol COVID-19 ([facility]) COVID-19 Clin Com 09/06/20 09/07/20 09/07/20 05:15 05:14 05:15 WBC 6.7 RBC 3.18 L Hgb 8.9 L Hct 27.9 L MCV 87.7 MCH 28.0 MCHC 31.9 RDW 14.2 Plt Count 194 MPV 9.7 Immature Gran % (Auto) 2.2 H Neut % (Auto) 71.2 Lymph % (Auto) 15.9 L [place] % (Auto) 9.4 Eos % (Auto) 1.2 Baso % (Auto) 0.1 Lymph # (Auto) 1.1 L [place] # (Auto) 0.6 Eos # (Auto) 0.1 Baso # (Auto) 0.0 Abs Immat Gran (auto) 0.15 H Absolute Neuts (auto) 4.8 Absolute Nucleated RBC 0.000 Nucleated RBC % (auto) 0.0 Neutrophils % (Manual) Band Neutrophils % Lymphocytes % (Manual) Monocytes % (Manual) Metamyelocytes % Myelocytes % Abs Neuts (Manual) Lymphocytes # (Manual) Monocytes # (Manual) Metamyelocytes # Myelocytes # Platelet Estimate Plt Morphology Comment RBC Morphology PT INR APTT D-Dimer VBG pH 7.49 H 7.47 H VBG pCO2 37 39 VBG pO2 43 58 VBG HCO3 29 H 29 H VBG O2 Saturation 72.0 85.0 VBG Base Excess 5.6 5.4 Sodium Potassium Chloride Carbon Dioxide Anion Gap BUN Creatinine Estim Creat Clear Calc Estimated GFR POC Glucose Random Glucose Fasting Glucose Lactic Acid Calcium Phosphorus Magnesium Total Bilirubin Direct Bilirubin AST ALT Alkaline Phosphatase Troponin I High Sens C-Reactive Protein B-Natriuretic Peptide Total Protein Albumin Lipase Procalcitonin TSH Urine Color Urine Appearance Urine pH Ur Specific [place]perity Urine Protein Urine Glucose (UA) Urine Ketones Urine Blood Urine Nitrite Ur Leukocyte Esterase Urine RBC Urine WBC Ur Squamous Epith Cells Urine Bacteria Hyaline Casts Urine Mucus Stool Occult Blood Valproic Acid Ethyl Alcohol COVID-19 ([facility]) COVID-19 Clin Com 09/07/20 09/07/20 09/07/20 05:15 05:15 05:15 WBC RBC Hgb Hct MCV MCH MCHC RDW Plt Count MPV Immature Gran % (Auto) Neut % (Auto) Lymph % (Auto) [place] % (Auto) Eos % (Auto) Baso % (Auto) Lymph # (Auto) [place] # (Auto) Eos # (Auto) Baso # (Auto) Abs Immat Gran (auto) Absolute Neuts (auto) Absolute Nucleated RBC Nucleated RBC % (auto) Neutrophils % (Manual) Band Neutrophils % Lymphocytes % (Manual) Monocytes % (Manual) Metamyelocytes % Myelocytes % Abs Neuts (Manual) Lymphocytes # (Manual) Monocytes # (Manual) Metamyelocytes # Myelocytes # Platelet Estimate Plt Morphology Comment RBC Morphology PT 15.0 H INR 1.3 H APTT 37.2 D-Dimer VBG pH VBG pCO2 VBG pO2 VBG HCO3 VBG O2 Saturation VBG Base Excess Sodium 145 Potassium 3.5 Chloride 109 H Carbon Dioxide 26 Anion Gap 14 BUN 11 Creatinine 0.62 Estim Creat Clear Calc 137.8 Estimated GFR > 60 POC Glucose Random Glucose 82 Fasting Glucose Lactic Acid Calcium 8.4 Phosphorus 3.1 Magnesium 1.9 Total Bilirubin Direct Bilirubin AST ALT Alkaline Phosphatase Troponin I High Sens C-Reactive Protein B-Natriuretic Peptide 44 Total Protein Albumin Lipase Procalcitonin TSH Urine Color Urine Appearance Urine pH Ur Specific [place]perity Urine Protein Urine Glucose (UA) Urine Ketones Urine Blood Urine Nitrite Ur Leukocyte Esterase Urine RBC Urine WBC Ur Squamous Epith Cells Urine Bacteria Hyaline Casts Urine Mucus Stool Occult Blood Valproic Acid Ethyl Alcohol COVID-19 ([facility]) COVID-19 Clin Com 09/07/20 09/08/20 09/08/20 05:15 05:13 05:13 WBC 6.6 RBC 3.40 L Hgb 9.5 L Hct 30.1 L MCV 88.5 MCH 27.9 MCHC 31.6 RDW 14.0 Plt Count 252 D MPV 9.9 Immature Gran % (Auto) 1.5 H Neut % (Auto) 72.5 Lymph % (Auto) 15.1 L [place] % (Auto) 9.9 Eos % (Auto) 0.8 Baso % (Auto) 0.2 Lymph # (Auto) 1.0 L [place] # (Auto) 0.7 Eos # (Auto) 0.1 Baso # (Auto) 0.0 Abs Immat Gran (auto) 0.10 H Absolute Neuts (auto) 4.8 Absolute Nucleated RBC 0.000 Nucleated RBC % (auto) 0.0 Neutrophils % (Manual) Band Neutrophils % Lymphocytes % (Manual) Monocytes % (Manual) Metamyelocytes % Myelocytes % Abs Neuts (Manual) Lymphocytes # (Manual) Monocytes # (Manual) Metamyelocytes # Myelocytes # Platelet Estimate Plt Morphology Comment RBC Morphology PT 15.3 H INR 1.3 H APTT 37.0 D-Dimer VBG pH VBG pCO2 VBG pO2 VBG HCO3 VBG O2 Saturation VBG Base Excess Sodium Potassium Chloride Carbon Dioxide Anion Gap BUN Creatinine Estim Creat Clear Calc Estimated GFR POC Glucose Random Glucose Fasting Glucose Lactic Acid Calcium Phosphorus Magnesium Total Bilirubin 0.8 Direct Bilirubin 0.4 AST 27 ALT 34 Alkaline Phosphatase 97 Troponin I High Sens C-Reactive Protein B-Natriuretic Peptide Total Protein 5.6 L Albumin 2.8 L Lipase Procalcitonin TSH Urine Color Urine Appearance Urine pH Ur Specific [place] Urine Protein Urine Glucose (UA) Urine Ketones Urine Blood Urine Nitrite Ur Leukocyte Esterase Urine RBC Urine WBC Ur Squamous Epith Cells Urine Bacteria Hyaline Casts Urine Mucus Stool Occult Blood Valproic Acid Ethyl Alcohol COVID-19 ([facility]) COVID-19 Clin Com 09/08/20 09/08/20 09/08/20 05:13 05:13 05:13 WBC RBC Hgb Hct MCV MCH MCHC RDW Plt Count MPV Immature Gran % (Auto) Neut % (Auto) Lymph % (Auto) [place] % (Auto) Eos % (Auto) Baso % (Auto) Lymph # (Auto) [place] # (Auto) Eos # (Auto) Baso # (Auto) Abs Immat Gran (auto) Absolute Neuts (auto) Absolute Nucleated RBC Nucleated RBC % (auto) Neutrophils % (Manual) Band Neutrophils % Lymphocytes % (Manual) Monocytes % (Manual) Metamyelocytes % Myelocytes % Abs Neuts (Manual) Lymphocytes # (Manual) Monocytes # (Manual) Metamyelocytes # Myelocytes # Platelet Estimate Plt Morphology Comment RBC Morphology PT INR APTT D-Dimer VBG pH VBG pCO2 VBG pO2 VBG HCO3 VBG O2 Saturation VBG Base Excess Sodium 144 Potassium 3.5 Chloride 107 Carbon Dioxide 28 Anion Gap 13 BUN 10 Creatinine 0.61 Estim Creat Clear Calc 140.0 Estimated GFR > 60 POC Glucose Random Glucose 76 Fasting Glucose Lactic Acid Calcium 8.6 Phosphorus 2.9 Magnesium 2.0 Total Bilirubin 0.6 Direct Bilirubin 0.3 AST 25 ALT 26 Alkaline Phosphatase 94 Troponin I High Sens C-Reactive Protein B-Natriuretic Peptide 62 Total Protein 5.9 L Albumin 2.9 L Lipase Procalcitonin TSH Urine Color Urine Appearance Urine pH Ur Specific [place] Urine Protein Urine Glucose (UA) Urine Ketones Urine Blood Urine Nitrite Ur Leukocyte Esterase Urine RBC Urine WBC Ur Squamous Epith Cells Urine Bacteria Hyaline Casts Urine Mucus Stool Occult Blood Valproic Acid Ethyl Alcohol COVID-19 ([facility]) COVID-19 Clin Com 09/08/20 09/09/20 09/09/20 05:15 06:12 06:12 WBC RBC Hgb Hct MCV MCH MCHC RDW Plt Count MPV Immature Gran % (Auto) Neut % (Auto) Lymph % (Auto) [place] % (Auto) Eos % (Auto) Baso % (Auto) Lymph # (Auto) [place] # (Auto) Eos # (Auto) Baso # (Auto) Abs Immat Gran (auto) Absolute Neuts (auto) Absolute Nucleated RBC Nucleated RBC % (auto) Neutrophils % (Manual) Band Neutrophils % Lymphocytes % (Manual) Monocytes % (Manual) Metamyelocytes % Myelocytes % Abs Neuts (Manual) Lymphocytes # (Manual) Monocytes # (Manual) Metamyelocytes # Myelocytes # Platelet Estimate Plt Morphology Comment RBC Morphology PT 16.0 H INR 1.4 H APTT 35.5 D-Dimer VBG pH 7.49 H VBG pCO2 37 VBG pO2 46 VBG HCO3 29 H VBG O2 Saturation 75.0 VBG Base Excess 5.6 Sodium 142 Potassium 3.8 Chloride 107 Carbon Dioxide 24 Anion Gap 15 BUN 9 Creatinine 0.60 Estim Creat Clear Calc 142.4 Estimated GFR > 60 POC Glucose Random Glucose 61 Fasting Glucose Lactic Acid Calcium 8.8 Phosphorus 2.6 L Magnesium 2.1 Total Bilirubin Direct Bilirubin AST ALT Alkaline Phosphatase Troponin I High Sens C-Reactive Protein B-Natriuretic Peptide Total Protein Albumin Lipase Procalcitonin TSH Urine Color Urine Appearance Urine pH Ur Specific [place] Urine Protein Urine Glucose (UA) Urine Ketones Urine Blood Urine Nitrite Ur Leukocyte Esterase Urine RBC Urine WBC Ur Squamous Epith Cells Urine Bacteria Hyaline Casts Urine Mucus Stool Occult Blood Valproic Acid Ethyl Alcohol COVID-19 ([facility]) COVID-19 Clin Com 09/09/20 09/09/20 09/09/20 06:12 06:12 06:13 WBC RBC Hgb Hct MCV MCH MCHC RDW Plt Count MPV Immature Gran % (Auto) Neut % (Auto) Lymph % (Auto) [place] % (Auto) Eos % (Auto) Baso % (Auto) Lymph # (Auto) [place] # (Auto) Eos # (Auto) Baso # (Auto) Abs Immat Gran (auto) Absolute Neuts (auto) Absolute Nucleated RBC Nucleated RBC % (auto) Neutrophils % (Manual) Band Neutrophils % Lymphocytes % (Manual) Monocytes % (Manual) Metamyelocytes % Myelocytes % Abs Neuts (Manual) Lymphocytes # (Manual) Monocytes # (Manual) Metamyelocytes # Myelocytes # Platelet Estimate Plt Morphology Comment RBC Morphology PT INR APTT D-Dimer VBG pH 7.43 VBG pCO2 41 VBG pO2 59 VBG HCO3 28 H VBG O2 Saturation 83.0 VBG Base Excess 3.6 Sodium Potassium Chloride Carbon Dioxide Anion Gap BUN Creatinine Estim Creat Clear Calc Estimated GFR POC Glucose Random Glucose Fasting Glucose Lactic Acid Calcium Phosphorus Magnesium Total Bilirubin 0.6 Direct Bilirubin 0.3 AST 26 ALT 20 Alkaline Phosphatase 95 Troponin I High Sens C-Reactive Protein B-Natriuretic Peptide 44 Total Protein 6.4 L Albumin 3.0 L Lipase Procalcitonin TSH Urine Color Urine Appearance Urine pH Ur Specific [place] Urine Protein Urine Glucose (UA) Urine Ketones Urine Blood Urine Nitrite Ur Leukocyte Esterase Urine RBC Urine WBC Ur Squamous Epith Cells Urine Bacteria Hyaline Casts Urine Mucus Stool Occult Blood Valproic Acid Ethyl Alcohol COVID-19 ([facility]) COVID-19 Clin Com 09/10/20 09/10/20 09/10/20 05:53 05:53 05:53 WBC 5.8 RBC 3.45 L Hgb 9.5 L Hct 29.9 L MCV 86.7 MCH 27.5 MCHC 31.8 RDW 13.5 Plt Count 356 D MPV 9.9 Immature Gran % (Auto) Neut % (Auto) Lymph % (Auto) [place] % (Auto) Eos % (Auto) Baso % (Auto) Lymph # (Auto) [place] # (Auto) Eos # (Auto) Baso # (Auto) Abs Immat Gran (auto) Absolute Neuts (auto) Absolute Nucleated RBC 0.000 Nucleated RBC % (auto) 0.0 Neutrophils % (Manual) Band Neutrophils % Lymphocytes % (Manual) Monocytes % (Manual) Metamyelocytes % Myelocytes % Abs Neuts (Manual) Lymphocytes # (Manual) Monocytes # (Manual) Metamyelocytes # Myelocytes # Platelet Estimate Plt Morphology Comment RBC Morphology PT INR APTT D-Dimer VBG pH VBG pCO2 VBG pO2 VBG HCO3 VBG O2 Saturation VBG Base Excess Sodium 143 Potassium 3.4 Chloride 108 Carbon Dioxide 26 Anion Gap 12 BUN 7 L Creatinine 0.55 Estim Creat Clear Calc 155.3 Estimated GFR > 60 POC Glucose Random Glucose Fasting Glucose 70 D Lactic Acid Calcium 8.5 Phosphorus Magnesium Total Bilirubin Direct Bilirubin AST ALT Alkaline Phosphatase Troponin I High Sens C-Reactive Protein B-Natriuretic Peptide 107 H Total Protein Albumin Lipase Procalcitonin TSH Urine Color Urine Appearance Urine pH Ur Specific [place] Urine Protein Urine Glucose (UA) Urine Ketones Urine Blood Urine Nitrite Ur Leukocyte Esterase Urine RBC Urine WBC Ur Squamous Epith Cells Urine Bacteria Hyaline Casts Urine Mucus Stool Occult Blood Valproic Acid Ethyl Alcohol COVID-19 ([facility]) COVID-19 Clin Com 09/12/20 09/12/20 09/12/20 04:48 04:48 07:09 WBC 6.8 RBC 3.77 L Hgb 10.4 L Hct 33.6 L MCV 89.1 MCH 27.6 MCHC 31.0 RDW 13.7 Plt Count 356 MPV 9.2 L Immature Gran % (Auto) Neut % (Auto) Lymph % (Auto) [place] % (Auto) Eos % (Auto) Baso % (Auto) Lymph # (Auto) [place] # (Auto) Eos # (Auto) Baso # (Auto) Abs Immat Gran (auto) Absolute Neuts (auto) Absolute Nucleated RBC 0.000 Nucleated RBC % (auto) 0.0 Neutrophils % (Manual) Band Neutrophils % Lymphocytes % (Manual) Monocytes % (Manual) Metamyelocytes % Myelocytes % Abs Neuts (Manual) Lymphocytes # (Manual) Monocytes # (Manual) Metamyelocytes # Myelocytes # Platelet Estimate Plt Morphology Comment RBC Morphology PT INR APTT D-Dimer VBG pH VBG pCO2 VBG pO2 VBG HCO3 VBG O2 Saturation VBG Base Excess Sodium 141 Potassium 3.8 Chloride 108 Carbon Dioxide 22 Anion Gap 15 BUN 4 L Creatinine 0.57 Estim Creat Clear Calc 149.9 Estimated GFR > 60 POC Glucose 86 Random Glucose Fasting Glucose 86 Lactic Acid Calcium 8.2 L Phosphorus Magnesium Total Bilirubin Direct Bilirubin AST ALT Alkaline Phosphatase Troponin I High Sens C-Reactive Protein B-Natriuretic Peptide Total Protein Albumin Lipase Procalcitonin TSH Urine Color Urine Appearance Urine pH Ur Specific [place] Urine Protein Urine Glucose (UA) Urine Ketones Urine Blood Urine Nitrite Ur Leukocyte Esterase Urine RBC Urine WBC Ur Squamous Epith Cells Urine Bacteria Hyaline Casts Urine Mucus Stool Occult Blood Valproic Acid Ethyl Alcohol COVID-19 ([facility]) COVID-19 Clin Com 09/13/20 09/13/20 09/14/20 05:27 05:27 06:16 WBC 6.4 5.9 RBC 3.59 L 3.55 L Hgb 10.0 L 9.8 L Hct 31.1 L 30.8 L MCV 86.6 86.8 MCH 27.9 27.6 MCHC 32.2 31.8 RDW 13.5 13.5 Plt Count 402 H 445 H MPV 9.2 L 9.3 L Immature Gran % (Auto) Neut % (Auto) Lymph % (Auto) [place] % (Auto) Eos % (Auto) Baso % (Auto) Lymph # (Auto) [place] # (Auto) Eos # (Auto) Baso # (Auto) Abs Immat Gran (auto) Absolute Neuts (auto) Absolute Nucleated RBC 0.000 0.000 Nucleated RBC % (auto) 0.0 0.0 Neutrophils % (Manual) Band Neutrophils % Lymphocytes % (Manual) Monocytes % (Manual) Metamyelocytes % Myelocytes % Abs Neuts (Manual) Lymphocytes # (Manual) Monocytes # (Manual) Metamyelocytes # Myelocytes # Platelet Estimate Plt Morphology Comment RBC Morphology PT INR APTT D-Dimer VBG pH VBG pCO2 VBG pO2 VBG HCO3 VBG O2 Saturation VBG Base Excess Sodium 142 Potassium 3.2 L Chloride 105 Carbon Dioxide 28 Anion Gap 12 BUN 2 L Creatinine 0.56 Estim Creat Clear Calc 152.5 Estimated GFR > 60 POC Glucose Random Glucose Fasting Glucose 89 Lactic Acid Calcium 8.6 Phosphorus Magnesium Total Bilirubin Direct Bilirubin AST ALT Alkaline Phosphatase Troponin I High Sens C-Reactive Protein B-Natriuretic Peptide Total Protein Albumin Lipase Procalcitonin TSH Urine Color Urine Appearance Urine pH Ur Specific [place] Urine Protein Urine Glucose (UA) Urine Ketones Urine Blood Urine Nitrite Ur Leukocyte Esterase Urine RBC Urine WBC Ur Squamous Epith Cells Urine Bacteria Hyaline Casts Urine Mucus Stool Occult Blood Valproic Acid Ethyl Alcohol COVID-19 ([facility]) COVID-19 Clin Com 09/14/20 09/15/20 09/15/20 06:16 06:15 06:15 WBC 5.7 RBC 3.67 L Hgb 9.9 L Hct 32.0 L MCV 87.2 MCH 27.0 MCHC 30.9 L RDW 13.6 Plt Count 439 H MPV 9.2 L Immature Gran % (Auto) Neut % (Auto) Lymph % (Auto) [place] % (Auto) Eos % (Auto) Baso % (Auto) Lymph # (Auto) [place] # (Auto) Eos # (Auto) Baso # (Auto) Abs Immat Gran (auto) Absolute Neuts (auto) Absolute Nucleated RBC 0.000 Nucleated RBC % (auto) 0.0 Neutrophils % (Manual) Band Neutrophils % Lymphocytes % (Manual) Monocytes % (Manual) Metamyelocytes % Myelocytes % Abs Neuts (Manual) Lymphocytes # (Manual) Monocytes # (Manual) Metamyelocytes # Myelocytes # Platelet Estimate Plt Morphology Comment RBC Morphology PT INR APTT D-Dimer VBG pH VBG pCO2 VBG pO2 VBG HCO3 VBG O2 Saturation VBG Base Excess Sodium 144 142 Potassium 3.3 3.5 Chloride 107 107 Carbon Dioxide 28 27 Anion Gap 12 12 BUN 2 L 3 L Creatinine 0.54 0.56 Estim Creat Clear Calc 158.2 152.5 Estimated GFR > 60 > 60 POC Glucose Random Glucose 84 D Fasting Glucose 85 Lactic Acid Calcium 8.5 8.5 Phosphorus Magnesium Total Bilirubin Direct Bilirubin AST ALT Alkaline Phosphatase Troponin I High Sens C-Reactive Protein B-Natriuretic Peptide Total Protein Albumin Lipase Procalcitonin TSH Urine Color Urine Appearance Urine pH Ur Specific [place] Urine Protein Urine Glucose (UA) Urine Ketones Urine Blood Urine Nitrite Ur Leukocyte Esterase Urine RBC Urine WBC Ur Squamous Epith Cells Urine Bacteria Hyaline Casts Urine Mucus Stool Occult Blood Valproic Acid Ethyl Alcohol COVID-19 ([facility]) COVID-19 Clin Com Airway Other: Unable to complete Assessment and Plan Assessment Anesthesia Assessment: Anesthesia Plan Discussed and Chart Reviewed Final Anesthetic Review NPO: Yes ASA Class: III Final Preanesthetic Review: No Changes in Pt Med Stat, Consent Obtained/Reviewed and Anes Risks/Benef Reviewed Patient Risk: Intermediate Procedure Risk: Low Anesthetic Plan Anesthetic Plan: MAC: Disposition: Standard PACU
--- NOTE | 2020-09-15 08:16 | W.PM.OPN ---
Operative Note Operative Note Date of Service: 09/15/20 Narrative: Preop diagnosis: Dysphagia, with aspiration pneumonia, dementia Postop diagnosis: The same Procedure: PEG tube placement Surgeon: Jovan Murray The patient is a 64-year-old male with dementia, recent aspiration pneumonitis was feel a swallow study, referred to me for PEG tube placement for nutrition. I had spoken to Michael, his healthcare proxy and about the planned procedure as well as the risks, benefits, and alternatives and she had given consent. He was brought to the operating room and placed in reclining position under monitored anesthesia care. A surgical time-out was done. The bite block was in position. The upper abdomen is prepped and draped in the usual sterile fashion. I placed the Olympus gastroscope through the bite block into the oropharynx. The vocal cords were visualized. The esophageal slit was seen posterior to this. The esophageal slit was intubated. The scope was gradually advanced to the esophagus all to stomach with stomach was insufflated. I could clearly see transillumination on the left upper quadrant. This area was marked and infiltrated lidocaine 1%. Indentation on the anterior abdominal wall on this same area was also seen with pressure with the finger on the skin. I made a short incision on this area using blade 11. Confirmation of this location was noted with a small gauge needle. I then removed the small gauge needle and advanced a larger gauge needle with a plastic cannula sheath. I removed the needle. I inserted the guidewire through the cannula and this was grasped with the snare through the endoscope. We pulled out this guidewire all the way to the oral cavity. This guidewire was looped with the other end of the PEG tube. We pulled the guidewire out through the abdominal wall again dragging the PEG tube with this all the way until this was snug. I reinserted the PEG tube into the stomach. Photographic documentation of the PEG tube was done. The internal mushroom bolster appeared to be in good position. There was good hemostasis. There were no lesions seen in the stomach. I withdrew the scope completely. I applied the external bolster on the PEG tube to make this snug on the abdominal wall. The procedure was then completed The patient tolerated the procedure well. There were no complications noted. There was no blood loss. The patient was transferred to the recovery room with stable vital signs.
--- NOTE | 2020-09-15 08:23 | PM.OP ---
Brief Operative Note Date of Service: 09/15/20 Pre-op diagnosis: Dysphagia with recent aspiration pneumonia, dementia Post-op diagnosis: same Procedure: PEG tube placement Surgeon: Jovan Scherer MD Anesthesia: MAC Was an Peripheral Equipment Operator used for this Procedure?: No Estimated blood loss (mL): 0 Pathology: none sent Condition: stable Disposition: PACU
[2020-09-15] MEDS: Dextrose 5 % and 0.45 % NaCl 1,000 ML 80 ML IVCONT (10:01)
--- NOTE | 2020-09-15 11:44 | MHC.CM.PN ---
PER MD ROUNDS, PT LIKELY T BE CLEARED TO DC TOMORROW. UPDATES SENT TO [facility]. CURRENT DC PLAN IS TO RETURN TO [facility] SNF FOR LTC VIA S
--- NOTE | 2020-09-15 12:49 | HO.PM.IMPN ---
Subjective Subjective Date of Service: 09/15/20 Interval History: Seen this morning, encephalopathic and nonverbal G-tube placed a early this morning No reported overnight events Physical Exam Vital Signs: Vital Signs: Last Vital Signs Temp 97.6 F 09/15/20 11:13 Pulse 71 09/15/20 11:13 Resp 20 09/15/20 11:13 BP 126/73 09/15/20 11:13 Pulse Ox 99 09/15/20 11:15 Body Mass Index 23.6 Const: Other: Constitutional : Encephalopathic, not in distress Neck : Normal inspection, Supple Cardiovascular : RRR, S1 S2, no lower extremity edema Respiratory : Fair bilateral air entry, no crackles, wheezes or rhonchi Gastrointestinal: soft, lax, Normal bowel sounds, Non tender, G-tube in place with no surrounding erythema or leakage Skin : Warm/Dry, No rash Neurological : Encephalopathic, not responsive, No focal deficit Objective Data Current Medications Generic Name Dose Route Start Last Admin Trade Name Freq PRN Reason Stop Dose Admin Enoxaparin Sodium 60 mg 09/03/20 05:00 09/15/20 04:21 Enoxaparin Sodium 60 Mg/0.6 Ml Syringe SUBCUT Not Given Q12H ARPIT Haloperidol Lactate 0.5 mg 09/06/20 11:10 09/09/20 22:23 Haloperidol Lactate 5 Mg/Ml Vial IV 0.5 mg Q1H PRN Administration anxiety/restlessness Valproic Acid 500 mg/ Dextrose 55 mls @ 55 mls/hr 09/06/20 19:15 09/15/20 12:01 IV 55 mls/hr Q8H ARPIT Administration Dextrose/Sodium Chloride 1,000 mls @ 80 mls/hr 09/11/20 07:15 09/15/20 10:01 D51/2ns IVCONT 80 mls/hr .[id number] ARPIT Administration Morphine Sulfate 1 mg 09/15/20 08:14 Morphine Sulfate 2 Mg/Ml Cartridge IVPUSH Q3H PRN Pain, Severe (Pain Scale 7-10) Labs CBC & Chem 7: 09/15/20 06:15 09/15/20 06:15 Labs: Laboratory Results - last 24 hr 09/15/20 09/15/20 06:15 06:15 WBC 5.7 RBC 3.67 L Hgb 9.9 L Hct 32.0 L MCV 87.2 MCH 27.0 MCHC 30.9 L RDW 13.6 Plt Count 439 H MPV 9.2 L Absolute Nucleated RBC 0.000 Nucleated RBC % (auto) 0.0 Sodium 142 Potassium 3.5 Chloride 107 Carbon Dioxide 27 Anion Gap 12 BUN 3 L Creatinine 0.56 Estim Creat Clear Calc 152.5 Estimated GFR > 60 Random Glucose 84 D Calcium 8.5 Quality Stroke Does the patient have a stroke diagnosis?: No VTE Prior VTE?: No VTE Risk Level:: Medical - moderate - high VTE Device Contraindication: N/A - Device Ordered VTE Drug Contraindication: N/A - Med Ordered Assessment and Plan (1) Acute metabolic encephalopathy: Status: Acute (2) Deep vein thrombosis (DVT): Status: Acute Assessment and Plan: 64M downgrade from ICU after admissin for severe sepsis/ acute hypoxic respiratory failure requiring intubation due to aspiratoin pneumonia due to pseudomas, complicated by DVT. he was given cefepime, sepsis resolved, he was treated with therapeutic lovenox, successfully extubated and downgraded to medical floor. Metabolic encephalopathy Secondary to worsening dementia, inpatient delirium Avoid medications that might worsen his mentation severe sepsis present on admission acute hypoxic respiratory failure due to pseudomal aspiration pneumonia completed one week of cefepime hypoxia resolved dysphagia NPO G tube in place, to wait 24 hours before using it surgery appreciated dvt lovenox
--- NOTE | 2020-09-15 13:33 | MHC.CLN ---
F/U PT TO RECEIVED PEG TODAY IN EARLY AM RECOMMEND OSMOLITE AT MAX GOAL RATE OF 70CC/HR WITH 300CC FREE WATER FLUSHES Q SHIFT TO PROVIDE 2520KCALS (30KCALS/KG), 105G PROTEIN (1.25G/KG), 2820CC FROM FORMULA AND FLUSHES (33CC/KG) START AT 20CC/HR AND INCREASE BY 10CC Q 4 HRS UNTIL MAX GOAL IS REACHED PT AT RISK FOR RE-FEEDING DUE TO PEG PLACEMENT CANCELLED AND UNABLE TO CONTACT HCP MONITOR TOLERANCE, RESIDUALS, AND LYTES- MG, PHOS, K+ FOLLOWING
[2020-09-15] MEDS: Enoxaparin Sodium 60 MG/0.6 ML SYRINGE SUBCUT (16:37)
[2020-09-16] VITALS (7 sets, daily range): BP systolic 110–156; BP diastolic 68–86; PULSE 67–83; RESP 16–28; TEMP 36.3–38.1; O2SAT 94–99; BMI 24.4
[2020-09-16] MEDS: Dextrose 5 % and 0.45 % NaCl 1,000 ML 80 ML IVCONT (02:16)
[2020-09-16] MEDS: Valproic Acid (as Sodium Salt) 500 MG in Dextrose 5 % 50 ML 55 MG IV ×3 (02:16→18:35)
[2020-09-16] MEDS: Enoxaparin Sodium 60 MG/0.6 ML SYRINGE SUBCUT ×2 (04:14→17:42)
[2020-09-16 07:12] LABS: Anion Gap 13 (12-20); Blood Urea Nitrogen 3 mg/dL (9-16); Calcium 8.6 mg/dL (8.4-10.2); Carbon Dioxide 27 mmol/L (22-29); Chloride 105 mmol/L (96-108); Creatinine Clr Calc Pharmacy 152.5; Estimated Glomerular Filt Rate > 60; Glucose Random 93 mg/dL (60-115); Potassium 3.4 mmol/L (3.3-5.1); Sodium 142 mmol/L (135-145)
[2020-09-16 07:20] LABS: Magnesium 1.6 mg/dL (1.6-2.6); Phosphorus 2.7 mg/dL (2.7-4.5)
--- NOTE | 2020-09-16 10:00 | PM.PNGS ---
Subjective Subjective Date of Service: 09/16/20 Interval history: Underwent uneventful PEG tube placement yesterday No events reported overnight Patient remains on communicative as baseline Physical Exam Vital Signs: Vital Signs: Last Vital Signs Temp 98.9 F 09/16/20 08:00 Pulse 75 09/16/20 08:00 Resp 28 H 09/16/20 08:00 BP 156/86 H 09/16/20 08:00 Pulse Ox 95 09/16/20 08:00 Body Mass Index 24.4 PT 16.0 SEC (9.9-13. 0) H 09/09/20 06:12 APTT 35.5 SEC (24.1-38 .0) 09/09/20 06:12 Const: Other: Not communicative, mental status as baseline, no apparent pain General: no acute distress GI: Other: No apparent tenderness, peg tube in place, site dry Inspection: No distended Palpation (GI): Soft to palpation, not firm and no guarding Progress Note: A&P Assessment and plan (1) Dysphagia: Status: Acute Assessment and Plan: Status post PEG Okay to start using PEG tube today Okay to restart anticoagulant therapy tonight Keep external bolster snug on abdominal wall Family updated last night Fall Risk Details Current Medications: Current Medications Generic Name Dose Route Start Last Admin Trade Name Freq PRN Reason Stop Dose Admin Enoxaparin Sodium 60 mg 09/03/20 05:00 09/16/20 04:14 Enoxaparin Sodium 60 Mg/0.6 Ml Syringe SUBCUT 60 mg Q12H ARPIT Administration Haloperidol Lactate 0.5 mg 09/06/20 11:10 09/09/20 22:23 Haloperidol Lactate 5 Mg/Ml Vial IV 0.5 mg Q1H PRN Administration anxiety/restlessness Valproic Acid 500 mg/ Dextrose 55 mls @ 55 mls/hr 09/06/20 19:15 09/16/20 03:20 IV Infused Q8H ARPIT Infusion Morphine Sulfate 1 mg 09/15/20 08:14 Morphine Sulfate 2 Mg/Ml Cartridge IVPUSH Q3H PRN Pain, Severe (Pain Scale 7-10) Time Spent With Patient Time: Total time spent is greater than 50% in coordination of care (as documented) at patient's floor/unit and/or counseling patient: Time with patient: 15 - 24 minutes Procedures Date of Service Date of Service: 09/16/20 Quality Stroke Does the patient have a stroke diagnosis?: No VTE Prior VTE?: No VTE Risk Level:: Medical - moderate - high VTE Device Contraindication: N/A - Device Ordered VTE Drug Contraindication: N/A - Med Ordered
--- NOTE | 2020-09-16 12:55 | HO.PM.IMPN ---
Subjective Subjective Date of Service: 09/16/20 Interval History: Seen this morning, More alert and interactive this morning, does not follow commands toe To start feeding tube today and monitor response Remains nonverbal No reported overnight events Systemic review Nonverbal Physical Exam Vital Signs: Vital Signs: Last Vital Signs Temp 98.9 F 09/16/20 08:00 Pulse 75 09/16/20 08:00 Resp 28 H 09/16/20 08:00 BP 156/86 H 09/16/20 08:00 Pulse Ox 99 09/16/20 11:00 Body Mass Index 24.4 Const: Other: Constitutional : Awake, does make eye contact, not in distress Neck : Normal inspection, Supple Cardiovascular : RRR, S1 S2, no lower extremity edema Respiratory : Fair bilateral air entry, no crackles, wheezes or rhonchi Gastrointestinal: soft, lax, Normal bowel sounds, Non tender, G-tube in place with no surrounding erythema or leakage Skin : Warm/Dry, No rash Neurological : Alert with stimulation, nonverbal, No focal deficit Objective Data Current Medications Generic Name Dose Route Start Last Admin Trade Name Jose Armando PRN Reason Stop Dose Admin Enoxaparin Sodium 60 mg 09/03/20 05:00 09/16/20 04:14 Enoxaparin Sodium 60 Mg/0.6 Ml Syringe SUBCUT 60 mg Q12H ARPIT Administration Haloperidol Lactate 0.5 mg 09/06/20 11:10 09/09/20 22:23 Haloperidol Lactate 5 Mg/Ml Vial IV 0.5 mg Q1H PRN Administration anxiety/restlessness Valproic Acid 500 mg/ Dextrose 55 mls @ 55 mls/hr 09/06/20 19:15 09/16/20 12:42 IV Infused Q8H ARPIT Infusion Morphine Sulfate 1 mg 09/15/20 08:14 Morphine Sulfate 2 Mg/Ml Cartridge IVPUSH Q3H PRN Pain, Severe (Pain Scale 7-10) Labs CBC & Chem 7: 09/15/20 06:15 09/16/20 05:41 Labs: Laboratory Results - last 24 hr 09/16/20 09/16/20 05:41 05:41 Sodium 142 Potassium 3.4 Chloride 105 Carbon Dioxide 27 Anion Gap 13 BUN 3 L Creatinine 0.56 Estim Creat Clear Calc 152.5 Estimated GFR > 60 Random Glucose 93 Calcium 8.6 Phosphorus 2.7 Magnesium 1.6 Quality Stroke Does the patient have a stroke diagnosis?: No VTE Prior VTE?: No VTE Risk Level:: Medical - moderate - high VTE Device Contraindication: N/A - Device Ordered VTE Drug Contraindication: N/A - Med Ordered Assessment and Plan (1) Acute metabolic encephalopathy: Status: Acute (2) Deep vein thrombosis (DVT): Status: Acute Assessment and Plan: 64M downgrade from ICU after admissin for severe sepsis/ acute hypoxic respiratory failure requiring intubation due to aspiratoin pneumonia due to pseudomas, complicated by DVT. he was given cefepime, sepsis resolved, he was treated with therapeutic lovenox, successfully extubated and downgraded to medical floor. Metabolic encephalopathy Secondary to worsening dementia, inpatient delirium Seems to be improving More alert today Avoid medications that might worsen his mentation severe sepsis present on admission acute hypoxic respiratory failure due to pseudomal aspiration pneumonia completed one week of cefepime hypoxia resolved dysphagia NPO G tube placed, start feeding tube today to assist tolerance surgery appreciated dvt lovenox
--- NOTE | 2020-09-16 13:12 | MHC.CLN ---
F/U PEG TO START TODAY RECOMMEND OSMOLITE AT MAX GOAL RATE OF 70CC/HR WITH 300CC FREE WATER FLUSHES Q SHIFT TO PROVIDE 2520KCALS (30KCALS/KG), 105G PROTEIN (1.25G/KG), 2820CC FROM FORMULA AND FLUSHES (33CC/KG) START AT 20CC/HR AND INCREASE BY 10CC Q 4 HRS UNTIL MAX GOAL IS REACHED PT AT RISK FOR RE-FEEDING CHECK MG, PHOS AND K+ MONITOR TOLERANCE, RESIDUALS, AND LYTES FOLLOWING
--- NOTE | 2020-09-16 13:44 | MHC.CM.PN ---
MARQUEZ SPOKE TO ROGERS ([phone]) AT [facility] WHO REPORTS THEY WILL BE ABLE TO TAKE THE PT OVER THE WEEKEND HOWEVER, THEY WILL NOT BE ABLE TO ORDER HIS FEEDING SUPPLIES UNTIL SATURDAY SO WILL NOT GET IT UNTIL SATURDAY. SHE REPORTS IF THE PT RETURNS TO THEM OVER THE WEEKEND, THEY WILL NEED SUPPLIES TO LAST UNTIL SATURDAY TO BE SENT WITH HIM. CURRENTLY, PT IS EXPECTED TO DC BACK TO [facility] ON 09/17/20. PT WILL BE TRANSPORTED VIA BLS
--- NOTE | 2020-09-16 16:07 | HO.POSTANES ---
Post Anesthesia Evaluation Post Anesthesia Evaluation Vital Signs: Vital Signs Temp Pulse Resp BP Pulse Ox 09/16/20 12:00 98.8 F 67 16 116/77 97 09/16/20 11:00 99 09/16/20 08:00 98.9 F 75 28 H 156/86 H 95 Anesthesia: Monitored Mental Status: Awake Pain Control: Satisfactory Nausea/Vomiting: None Hydration: Adequate Anesthesia-Related Issues: No Anes. Related Issues
[2020-09-17 04:00] VITALS: BP 122/68; PULSE 76; RESP 18; TEMP 37.1; O2SAT 97
[2020-09-17] MEDS: Valproic Acid (as Sodium Salt) 500 MG in Dextrose 5 % 50 ML 55 MG IV (05:47)
[2020-09-17] MEDS: Enoxaparin Sodium 60 MG/0.6 ML SYRINGE SUBCUT (05:49)
[2020-09-17 06:00] VITALS: BMI 23.4
[2020-09-17 07:08] VITALS: BP 108/65; PULSE 80; RESP 18; TEMP 37.1; O2SAT 99
[2020-09-17 11:04] VITALS: BP 134/66; PULSE 78; RESP 16; TEMP 36.6; O2SAT 96
--- NOTE | 2020-09-17 11:39 | MHC.CM.PN ---
Addendum entered by Sri Sylvester 09/17/20 12:34: pts nurse is aware the pt will need feeds and supplies sent with him to last until Saturday when the SNF will receive their own supply. Addendum entered by Sri Sylvester 09/17/20 12:32: CM received a message from pts nurse stating the sister had told her she was refusing to have the pt discharged back to [facility] and wanted to schedule a meeting with CM for tomorrow. CM called pts sister back to inquire and she reported that was stated before she had spoken to CM and now that she understands the pt can only go to [facility], she is agreeable. pt will DC back to [facility] at 1330 hours via BLS Original Note: PT CLEARED TO RETURN TO LTC AT [facility] TODAY. MARQUEZ SPOKE TO PTS SISTER/GUARDIAN, RAFY ([phone]) WHO EXPRESSED INTEREST IN PT GOING TO A FACILITY CLOSER TO [place]. CM EXPLAINED THAT THIS WOULD NOT BE AN OPTION FROM HERE SINCE THE PT HAD BEEN SENT TO [facility] FROM A [facility] BASED ON A CONTRACT BETWEEN THE TWO FACILITIES. RAFY REPORTS UNDERSTANDING AND IS AWARE THE PT WILL RETURN TO THE SNF LATER TODAY VIA BLS. SHE REPORTS SHE WILL SEE HIM AT THE SNF TOMORROW MORNING. PT WILL DC BACK TO [facility] TODAY VIA BLS
--- NOTE | 2020-09-17 13:08 | PM.DS ---
DS: Providers Provider Date of Service: 09/17/20 Date of admission: 08/30/20 19:46 Primary care physician: Smita Modi MD Consults: 09/11/20 11:16 Consult to General Surgery Routine Consulting Provider: Demetra Contreras Reason for consultation: G tube placment DS: Diagnosis Discharge Diagnosis (1) Acute metabolic encephalopathy: Status: Acute (2) Deep vein thrombosis (DVT): Status: Acute (3) Dysphagia: Status: Acute (4) Aspiration pneumonitis: Status: Acute (5) Acute on chronic respiratory failure with hypoxia: Status: Acute (6) Elevated INR: Status: Acute (7) Acute kidney injury: Status: Acute (8) Sepsis: Status: Acute DS: Medications Discharge Medications Home Medications: Home Medications Medication Instructions Recorded Confirmed olanzapine [Zyprexa] 10 mg IM BEDTIME PRN 08/30/20 08/30/20 Previous Rx's Medication Instructions Recorded amlodipine 2.5 mg FEEDING TUBE DAILY@0900 #0 09/17/20 tab apixaban [Eliquis] 5 mg FEEDING TUBE BID 30 Days #60 09/17/20 tab aspirin 81 mg FEEDING TUBE DAILY@0900 #0 09/17/20 tab cholecalciferol (vitamin D3) 25 mcg FEEDING TUBE DAILY #0 tab 09/17/20 escitalopram oxalate 20 mg FEEDING TUBE BEDTIME #0 tab 09/17/20 famotidine 40 mg FEEDING TUBE DAILY@0900 #0 09/17/20 tab lisinopril 40 mg FEEDING TUBE DAILY #0 tab 09/17/20 olanzapine 5 mg FEEDING TUBE DAILY #0 tab 09/17/20 olanzapine 10 mg FEEDING TUBE BEDTIME #0 tab 09/17/20 simvastatin 20 mg FEEDING TUBE BEDTIME #0 tab 09/17/20 trazodone 100 mg FEEDING TUBE BEDTIME #0 tab 09/17/20 valproic acid (as sodium salt) 750 mg FEEDING TUBE BID 30 Days 09/17/20 #900 ml DS: Summary Hospital Course Hospital Course: The patient had prolonged hospital stay for full details please returned to EMR. Admission note HPI A 64 years old Patient with an underlying history of dementia, atrial fibrillation with rapid ventricular response, hypoxic respiratory failure due to aspiration pneumonia post recent treatment with Unasyn, hypernatremia and dehydration with recent admission to the ICU about 20 days ago and discharged on 08/18/2020. The patient presented to the emergency room via EMS from [facility]. According to them, the patient had mental status changes, was barely responsive, found to be hypoxic and hypotensive, upon arrival to the emergency room he was noted to be obtunded with a respiratory rate of 68 in satting 90-91% on 15 L with a blood pressure of 80/39, heart rate of 125, fever of 102.3, the patient was quickly intubated given the inability to protect his airway. Based on presentation it was suspected that the patient had underlying sepsis and 30 mL/kilogram of IV fluids were given. Subsequently his workup revealed a white count of 12.3, H&H of 14 and 46 respectively, platelets 205, PTT of 21.9, INR 1.8, venous blood gas was overall unremarkable with exception of a HC03 of 28 and borderline low pH of 7.33. Sodium of 166, chloride 128, BUN of 64 and creatinine of 1.94, his previous baseline(0.69), glucose 124. Magnesium 2.7 albumin 3.2. COVID pending. Hospital course The patient was admitted to the ICU on August 30 as he was obtunded with pinpoint pupils and tachycardic. CT scan of the chest showed bilateral infiltrate suggestive of aspiration pneumonia as he was treated with IV antibiotics. He was also noted to hypernatremia with sodium of 158 that was drop down gradually during the ICU stay. In order protect his airways he was intubated and ventilated in the unit. On September 01 he was noted to have swollen in his lower extremity and ultrasound Doppler was done showing DVT in the left leg involving left superficial femoral, popliteal and posterior tibial veins. Treated with Lovenox injections since then. Patient started to improve and waking up with propofol holidays until he was finally extubated. Sputum culture grew sensitive Pseudomonas treated for with IV antibiotics for 1 week. Blood culture grew Propionibacterium acnes which is considered as contaminant. His mentation started to improve back to baseline which she is nonverbal and does not communicate much. He was weaned off the oxygen after finishing treatment 1 week with antibiotics. He failed swallowing test by [employer] team and evaluated by surgery who recommended placement G-tube. He tolerated 2 ft and will be discharged back to the facility with changing all of his medication to be done through the tube. He will need to continue anticoagulation for total of 6 month until March. To be followed by his PCP. Time Spent with Patient Time attestation: Total time spent providing and/or coordinating discharge services: Discharge coordination time: Greater than 30 minutes Quality: Stroke Does the patient have a stroke diagnosis?: No Physical Exam Vital Signs: Vital Signs: Last Vital Signs Temp 98 F 09/17/20 11:04 Pulse 78 09/17/20 11:04 Resp 16 09/17/20 11:04 BP 134/66 09/17/20 11:04 Pulse Ox 96 09/17/20 11:04 Body Mass Index 23.4 Const: Other: Constitutional : Awake, looks comfortable, not in distress Neck : Normal inspection, Supple Cardiovascular : RRR, S1 S2, no lower extremity edema Respiratory : Fair bilateral air entry, no crackles, wheezes or rhonchi Gastrointestinal: soft, lax, Normal bowel sounds, Non tender, G-tube in place with no surrounding erythema or leakage Skin : Warm/Dry, No rash Neurological : Alert with stimulation, nonverbal, No focal deficit DS: Data Imaging Chest x-ray: Radiologist's impression: ITS Impressions Chest X-Ray 08/30/20 17:22 IMPRESSION: New right jugular central catheter in mid SVC. Tip of endotracheal tube is 5 cm above the nate. The lungs are clear. Abdomen/Pelvis CT 08/30/20 21:05 IMPRESSION: Bilateral lower lobe pneumonia, left greater than right. Stool throughout the colon suggestive of constipation. Small tube coiled in the rectum. Head CT 08/30/20 21:05 IMPRESSION: No acute findings. Generalized atrophy and nonspecific periventricular white matter disease similar to previous exam. Chest X-Ray 08/31/20 06:40 IMPRESSION: ET tube terminates 4 cm from the nate. Clear lungs. Chest CT 08/31/20 11:00 IMPRESSION: Bronchopneumonia, greatest in the lower lobes, left greater than right. Satisfactory position of support line and tubes. Venous Duplex 09/01/20 13:12 IMPRESSION: Left leg DVT involving the left superficial femoral, popliteal and posterior tibial veins. No right leg DVT. Findings were communicated to Dr. Becker by the biotechnologist at the completion of the exam on 09/01/2020 at 3:30 PM. Chest X-Ray 09/01/20 18:17 IMPRESSION: Orogastric tube projects over stomach. The tip is not seen. Satisfactory position of endotracheal tube and right jugular line. Head CT 09/04/20 14:20 IMPRESSION: No acute intracranial pathology. No significant change since 08/30/2020. Discharge Plan Discharge Patient Disposition: [facility] Discharge Diagnosis: Aspiration pneumonia Difficulty swallowing Referrals: [facility] [Other] - 1 Week () Smita Modi MD [Primary Care Provider] - 1 Week Discharge Medications: New valproic acid (as sodium salt) 250 mg/5 mL solution 750 mg feeding tube BID 30 Days Qty: 900 RF: 0 Eliquis 5 mg tablet 5 mg feeding tube BID 30 Days Qty: 60 RF: 0 Continued olanzapine [Zyprexa] 10 mg Recon Soln 10 mg IM BEDTIME PRN (Reason: if pt refuses bedtime zyprexa) RF: 0 Changed famotidine 40 mg Tablet 40 mg feeding tube DAILY@0900 Qty: 0 RF: 0 olanzapine 5 mg Tablet 5 mg feeding tube DAILY Qty: 0 RF: 0 olanzapine 10 mg Tablet 10 mg feeding tube BEDTIME Qty: 0 RF: 0 amlodipine 2.5 mg Tablet 2.5 mg feeding tube DAILY@0900 Qty: 0 RF: 0 trazodone 100 mg Tablet 100 mg feeding tube BEDTIME Qty: 0 RF: 0 simvastatin 20 mg Tablet 20 mg feeding tube BEDTIME Qty: 0 RF: 0 aspirin 81 mg Tablet,Chewable 81 mg feeding tube DAILY@0900 Qty: 0 RF: 0 lisinopril 40 mg Tablet 40 mg feeding tube DAILY Qty: 0 RF: 0 escitalopram oxalate 20 mg Tablet 20 mg feeding tube BEDTIME Qty: 0 RF: 0 cholecalciferol (vitamin D3) 25 mcg (1,000 unit) Tablet 25 mcg feeding tube DAILY Qty: 0 RF: 0 Discontinued divalproex [Depakote Sprinkles] 125 mg Capsule, Delayed Rel Sprinkle 750 mg PO DAILY RF: 0 divalproex 125 mg Capsule, Delayed Rel Sprinkle 1,000 mg PO BEDTIME RF: 0 Discharge Orders: Discharge Order (Routine); Ordered 09/17/20 Ordered By: Yehuda Rodriguez Diet: other Activity on Discharge: As tolerated Stand Alone Forms: Patient Portal Discharge page Care Plan Goals: Read below Health Concerns: Read below Plan of Treatment: Admitted to the hospital for respiratory distress found to have aspiration pneumonia and treated with IV antibiotics with good response. G-tube was placed for history of dysphagia and recurrent aspirations. Tolerated feeding well. Found to have DVT in lower extremities treated with blood thinners. Assessment: Will need at least 6 months of blood thinners. Continue Eliquis as prescribed. DVT diagnosed on 09/01/2020 Keep head elevated to avoid aspiration
== END 2020-09-17 13:30 | disposition skilled nursing facility (03) | DRG 870 ==
LOC: HO.ED 19:45 → HO.ICU 20:14 → HO.IMC 09-08 21:35
PROVIDERS: Anesthesiology; Internal Medicine; Physician Assistant; Surgery; Admitting Provider Physician Assistant Medical; Emergency Provider Emergency Medicine; PCP Internal Medicine; Visit Provider Student in an Organized Health Care Education/Training Program
PROC: 0DH63UZ Insertion of Feeding Device into Stomach, Percutaneous Approach (ICD-10-PCS; CPT 43246; principal; 2020-09-15 07:30)
DX: A41.9 Sepsis, unspecified organism (principal); L89.623 Pressure ulcer of left heel, stage 3; J96.21 Acute and chronic respiratory failure with hypoxia; G93.41 Metabolic encephalopathy; J69.0 Pneumonitis due to inhalation of food and vomit; E87.0 Hyperosmolality and hypernatremia; N17.9 Acute kidney failure, unspecified; D68.9 Coagulation defect, unspecified; F02.81 Dementia in other diseases classified elsewhere, unspecified severity, with behavioral disturbance; I82.412 Acute embolism and thrombosis of left femoral vein; G30.9 Alzheimer's disease, unspecified; E86.0 Dehydration; I48.91 Unspecified atrial fibrillation; G40.909 Epilepsy, unspecified, not intractable, without status epilepticus; Z96.641 Presence of right artificial hip joint; R65.20 Severe sepsis without septic shock; B96.5 Pseudomonas (aeruginosa) (mallei) (pseudomallei) as the cause of diseases classified elsewhere; R13.10 Dysphagia, unspecified; I95.9 Hypotension, unspecified; Z20.822 Contact with and (suspected) exposure to COVID-19; Z88.6 Allergy status to analgesic agent; Z79.01 Long term (current) use of anticoagulants; Z79.82 Long term (current) use of aspirin; Z79.899 Other long term (current) drug therapy; Z66 Do not resuscitate
CPT/HCPCS: 0241U; 36415; 70450; 71045; 71250; 71275; 73700; 74176; 74177; 80048; 80053; 80076; 80164; 80202; 81001; 82077; 82272; 82550; 82803; 82947; 83605; 83690; 83735; 83880; 84100; 84145; 84300; 84443; 84484; 85007; 85025; 85027; 85379; 85610; 85730; 86140; 87040; 87070; 87076; 87077; 87185; 87186; 87205; 87635; 92610; 93005; 93308; 93970; 94002; 94003; 94660; 94799; 99285; C1758; J0153; J0282; J0295; J0692; J1650; J2250; J2543; J3010; J3370; J3430; J3475; P9047; Q9967

== ENCOUNTER 2020-09-20 14:24 | Inpatient (IN) | payer OTHER, MEDICAID, SELFPAY ==
[2020-09-20] VITALS (20 sets, daily range): BP systolic 86–149; BP diastolic 53–79; PULSE 88–158; RESP 16–41; TEMP 37.2–40.8; O2SAT 72–100; BMI 27.6
--- NOTE | ~2020-09-20 | CT_ITS ---
EXAMINATION: CT LEFT FOOT WITHOUT CONTRAST CLINICAL INFORMATION: Left heel ulcer COMPARISON: None TECHNIQUE: No intravenous contrast was utilized. Multidetector helical imaging was performed through the left foot. Coronal and sagittal reformatted images were created. DLP: 177 mGy-cm DOSE LOWERING TECHNIQUES: This CT examination was performed using dose optimization techniques as appropriate, variously including the following: - Automated exposure control - Adjustment of mA and/or kV according to patient size (this includes techniques or standardized protocols for targeted exams were dose is matched to indication/reason for exam; i.e. extremities or head) - Use of iterative reconstruction technique FINDINGS: Osseous alignment is anatomic. No evidence of acute fracture. No osseous erosions are seen. Mild degenerative changes are noted in the foot. Posterior subcutaneous edema is noted overlying the calcaneus. No focal collection is seen. No soft tissue gas identified. There is scattered vascular calcification. CT/CT foot LT wo con IMPRESSION: Soft tissue swelling posteriorly overlying the calcaneus. No focal collection or soft tissue gas identified. No acute osseous findings.
--- NOTE | ~2020-09-20 | XR_ITS ---
EXAMINATION: XR CHEST CLINICAL INFORMATION: Shortness of breath. COMPARISON: Chest 09/01/2020 TECHNIQUE: Frontal view of the chest was obtained. FINDINGS: The lungs are hypoexpanded but clear. Heart size and pulmonary vascularity is normal. There is mild spondylosis dorsal spine. No lytic process. XR/XR chest 1V IMPRESSION: Unremarkable chest exam.
--- NOTE | ~2020-09-20 | CT_ITS ---
EXAMINATION: CTA CHEST CT ABDOMEN AND PELVIS WITH CONTRAST CLINICAL INFORMATION: Hypoxia. Sepsis. COMPARISON: Chest x-ray September 20, 2020. CT chest August 31, 2020. CT abdomen pelvis August 30, 2020 TECHNIQUE: A noncontrast localizer was performed, followed by the administration of 100 mL Omnipaque [address] of the chest was then performed. Coronal and sagittal reformatted and 3-D technique MIP images of the chest were completed at the CT scanner and reviewed on the PACS workstation. No adverse effects were reported. Images were then performed through the abdomen and pelvis. Coronal and sagittal reformatted images performed at CT scanner by technologist. [This CT examination was performed using dose optimization techniques as appropriate, variously including the following: *Automated exposure control *Adjustment of mA and/or kV according to patient size (this includes techniques or standardized protocols for targeted exams where dose is matched to indication/reason for exam; i.e. extremities or head) *Use of iterative reconstruction technique] DLP: 1704 mGy-cm. FINDINGS: CTA CHEST Vascular: The main pulmonary artery, secondary and tertiary branches of the pulmonary artery are normally opacified with no evidence of pulmonary embolism. The aorta and great vessels are unremarkable. Mediastinum: No mediastinal mass. No significant lymphadenopathy. There is no pericardial effusion. Thyroid is unremarkable. Lungs: Bibasilar consolidation with air bronchograms at both lung bases. There is also a patchy area of airspace disease at the posterior left upper lobe. Fluid: There is no pericardial effusion. There is no pleural effusion. Axilla: No significant lymphadenopathy. CT SCAN ABDOMEN/PELVIS: Liver, Gallbladder and Biliary Tree: The liver is normal in size, shape, and attenuation. No focal hepatic lesion or biliary ductal dilatation is present. The gallbladder is unremarkable with no evidence of radiopaque gallstones, gallbladder wall thickening, or obvious pericholecystic inflammatory changes. Pancreas: Unremarkable. Spleen: Unremarkable. Adrenal Glands: Unremarkable. Kidneys and Ureters: The kidneys are normal in size, shape, and attenuation. No hydronephrosis, hydroureter, or calculi seen. No perinephric stranding. Bladder: Escalante catheter within the bladder. The bladder is empty. There is streak artifact from the right hip replacement obscuring the pelvis including portions of the bladder. Gastrointestinal Tract: No acute abnormality. There is no bowel wall thickening /edema. There is no bowel obstruction. There is a moderate volume of stool in the colon. The appendix is nonvisualized . The small bowel loops are unremarkable. Percutaneous gastrotomy catheter in place in good position. There is no hiatal hernia. Abdominal Wall: No significant hernia is appreciated. Lymph Nodes: Normal. Vascular: Unremarkable. Pelvic Viscera: Unremarkable. Osseous Structures: Multilevel degenerative spondylosis of the spine. Status post right hip replacement. CT/CT angio chest PE protocol IMPRESSION: 1. No evidence of pulmonary embolism. 2. Bibasilar airspace disease and patchy airspace disease in the left upper lobe. 3. No acute abnormality the abdomen or pelvis. Percutaneous gastrotomy catheter in place. Escalante catheter in bladder.
--- NOTE | ~2020-09-20 | CT_ITS ---
EXAMINATION: CT HEAD WITHOUT CONTRAST CLINICAL INFORMATION: AMS COMPARISON: CT brain 09/04/2020 TECHNIQUE: Contiguous axial imaging was performed from the skull base to vertex without intravenous administration of contrast. This CT examination was performed using dose optimization techniques as appropriate, variously including the following: *Automated exposure control *Adjustment of mA and/or kV according to patient size (this includes techniques or standardized protocols for targeted exams where dose is matched to indication/reason for exam; i.e. extremities or head) *Use of iterative reconstruction technique DLP: 828 mGy-cm FINDINGS: There is no evidence of acute intracranial hemorrhage or territorial infarction. No abnormal mass effect or midline shift is seen. Perez to white matter differentiation is well preserved. No extra-axial fluid collections are identified. The lateral ventricles is moderately enlarged but symmetrical. Mild prominence of cortical sulci is noted. There is diffuse periventricular hypodensity in both cerebral hemispheres suggestive of chronic small vessel microangiopathy. The osseous structures and soft tissues are normal. The mastoid air cells and visualized portions of the paranasal sinuses are well aerated. CT/CT head/brain wo con IMPRESSION: No acute intracranial process seen. There is moderate cerebral atrophy with chronic small vessel ischemic changes
--- NOTE | 2020-09-20 14:28 | ED_ITS ---
HPI - SOB/Dyspnea General Chief Complaint: Dyspnea Stated Complaint: resp distress Time Seen by Provider: 09/20/20 14:27 Source: EMS Mode of arrival: EMS Limitations: no limitations History of Present Illness HPI Narrative: EMS found patient at 72% when they arrived. Patient started with increased work of breathing yesterday, today he was worse and they called the ambulance. MD elicited complaint: shortness of breath Pertinent past history: COPD Related Data Home Medications Medication Instructions Recorded Confirmed olanzapine [Zyprexa] 10 mg IM BEDTIME PRN 08/30/20 08/30/20 Previous Rx's Medication Instructions Recorded amlodipine 2.5 mg FEEDING TUBE DAILY@0900 #0 09/17/20 tab apixaban [Eliquis] 5 mg FEEDING TUBE BID 30 Days #60 09/17/20 tab aspirin 81 mg FEEDING TUBE DAILY@0900 #0 09/17/20 tab cholecalciferol (vitamin D3) 25 mcg FEEDING TUBE DAILY #0 tab 09/17/20 escitalopram oxalate 20 mg FEEDING TUBE BEDTIME #0 tab 09/17/20 famotidine 40 mg FEEDING TUBE DAILY@0900 #0 09/17/20 tab lisinopril 40 mg FEEDING TUBE DAILY #0 tab 09/17/20 olanzapine 5 mg FEEDING TUBE DAILY #0 tab 09/17/20 olanzapine 10 mg FEEDING TUBE BEDTIME #0 tab 09/17/20 simvastatin 20 mg FEEDING TUBE BEDTIME #0 tab 09/17/20 trazodone 100 mg FEEDING TUBE BEDTIME #0 tab 09/17/20 valproic acid (as sodium salt) 750 mg FEEDING TUBE BID 30 Days 09/17/20 #900 ml Allergies Allergy/AdvReac Type Severity Reaction Status Date / Time atenolol Allergy Unknown Verified 08/04/20 13:37 duloxetine [From Cymbalta] Allergy Unknown Verified 08/04/20 13:37 ibuprofen Allergy Unknown Verified 08/04/20 13:37 levofloxacin [From Levaquin] Allergy Unknown Verified 08/04/20 13:37 Review of Systems Review of Systems: Yes Unobtainable due to mental status PMFSH Past Medical History Medical History Advanced dementia Afib Alzheimer disease Dementia G tube feedings Glaucoma HTN (hypertension) Mood disorder Tremors of nervous system Social History Social History Household Members: None Housing: Assisted Living Facility Do you presently have visiting nurse or other home services: No Unable to assess alcohol history related to: Unable to respond Alcohol intake: unknown Patient Tobacco Use Status: Tobacco use Unknown Use of substances other than those prescribed or required for medical reasons: Unknown Advance Directives: Yes Advance Directives on File: Yes Advance Directives Date on File: 08/05/20 service: No (UNKLNOWN) Current occupational status: retired Physical Exam 2 Vital Signs: Vital Signs: Last Vital Signs Temp 104.3 F H 09/20/20 16:25 Pulse 135 H 09/20/20 16:08 Resp 27 H 09/20/20 16:08 BP 99/59 L 09/20/20 16:08 Pulse Ox 100 09/20/20 16:08 Body Mass Index 27.6 Const: Other: chronically ill, now acutely ill, thin, nonverbal tremulous HENMT: Head: Yes normal to inspection Ears: external ears normal General nose exam: Normal external nose present Mouth: Normal oral and palatal mucosa present and oropharynx normal Throat: Yes posterior oropharynx normal Eyes: General: appearance normal, both eyes and all related structures Neck: Other: supple Neck: Yes normal visual inspection Chest: Chest palpation & inspection: normal inspection of the chest Resp: Other: diffuse rhonchi Cardio: Other: tachycardia Jugular venous distension: no JVD Heart sounds: S1 normal heart sound present and S2 normal heart sound present GI: Inspection: Yes normal to inspection Palpation (GI): Soft to palpation, nontender and No hepatosplenomegaly present Auscultation: normal bowel sounds : General: Yes no CVA tenderness Back/Spine/Pelvis: Back: no CVA tenderness Skin: General skin exam: no rashes or lesions noted Neuro: Other: contracted and rigid which I believe is baseline. Extrem: General: Yes normal to inspection Psych: Appearance: grossly normal Course Reevaluation(s) Reevaluation #1: tried adenosine which broke rhythm but not atrial flutter, this appears to be all sinus tachycardia Time: 15:08 Reevaluation #2: patient breathing better, off CPAP, heart rate coming down, paitient meets sepsis criteria, covered with zosyn and vanco discussed with Dr. Swanson will admit. Patient too rigid to get LP, IR radiology no longer here. Time: 16:35 MDM - SOB/Dyspnea Lab Data Result diagrams: 09/20/20 15:34 09/20/20 15:34 Labs: Lab Results 09/20/20 09/20/20 09/20/20 Range/Units 15:05 15:05 15:34 WBC 9.3 (4.8-10.8) X10*3/uL RBC 4.19 L (4.60-5.80) X10*6/uL Hgb 11.6 L (14.0-18.0) g/dl Hct 37.9 L (42-52) % MCV 90.5 (80-98) fL MCH 27.7 (27.0-33.0) pg MCHC 30.6 L (31.0-36.0) g/dl RDW 14.4 (11.0-16.0) % Plt Count 439 H (160-400) X10*3/uL MPV 9.1 L (9.4-12.4) fL Immature Gran % (Auto) 0.5 H (0.0-0.4) % Neut % (Auto) 74.9 H (45-73) % Lymph % (Auto) 10.0 L (20-40) % [place] % (Auto) 14.1 H (2-11) % Eos % (Auto) 0.3 (0-4) % Baso % (Auto) 0.2 (0-2) % Lymph # (Auto) 0.9 L (1.2-4.9) X10*3/uL [place] # (Auto) 1.3 H (0.1-1.2) X10*3/uL Eos # (Auto) 0.0 (0.0-0.4) X10*3/uL Baso # (Auto) 0.0 (0.0-0.2) X10*3/uL Abs Immat Gran (auto) 0.05 H (0.00-0.03) X10*3/uL Absolute Neuts (auto) 6.9 (2.0-8.3) X10*3/uL Absolute Nucleated RBC 0.000 (0.0-0.012) X10*3/uL Nucleated RBC % (auto) 0.0 (0.0-0.2) /100WBC PT (9.9-13.0) SEC INR (0.9-1.1) Sodium (135-145) mmol/L Potassium (3.3-5.1) mmol/L Chloride (96-108) mmol/L Carbon Dioxide (22-29) mmol/L Anion Gap (12-20) BUN (9-16) mg/dL Creatinine (0.5-1.4) mg/dL Estim Creat Clear Calc Estimated GFR Random Glucose (60-115) mg/dL Lactic Acid (0.5-2.0) mmol/L Calcium (8.4-10.2) mg/dL Troponin I High Sens (<3.5-35.0) ng/L B-Natriuretic Peptide (<100) pg/mL Urine Color YELLOW Urine Appearance CLEAR Urine pH 7.5 (5.0-8.0) Ur Specific [place] 1.015 (1.005-1.025) Urine Protein NEG (NEG-TRACE) MG/DL Urine Glucose (UA) NEG (NEG) MG/DL Urine Ketones 5 (NEG) MG/DL Urine Blood TRACE (NEG) Urine Nitrite NEG (NEG) Ur Leukocyte Esterase NEG (NEG) Urine RBC 5-9 H (0) /HPF Urine WBC 0 (0-4) /HPF Ur Squamous Epith Cells TRACE /LPF Urine Bacteria NONE /LPF Urine Mucus 1+ /LPF Coronavirus (PCR) NEGATIVE (Negative) Influenza Type A (PCR) NEGATIVE (Negative) Influenza Type B (PCR) NEGATIVE (Negative) RSV RNA Qual (PCR) NEGATIVE (Negative) 09/20/20 09/20/20 09/20/20 Range/Units 15:34 15:34 15:34 WBC (4.8-10.8) X10*3/uL RBC (4.60-5.80) X10*6/uL Hgb (14.0-18.0) g/dl Hct (42-52) % MCV (80-98) fL MCH (27.0-33.0) pg MCHC (31.0-36.0) g/dl RDW (11.0-16.0) % Plt Count (160-400) X10*3/uL MPV (9.4-12.4) fL Immature Gran % (Auto) (0.0-0.4) % Neut % (Auto) (45-73) % Lymph % (Auto) (20-40) % [place] % (Auto) (2-11) % Eos % (Auto) (0-4) % Baso % (Auto) (0-2) % Lymph # (Auto) (1.2-4.9) X10*3/uL [place] # (Auto) (0.1-1.2) X10*3/uL Eos # (Auto) (0.0-0.4) X10*3/uL Baso # (Auto) (0.0-0.2) X10*3/uL Abs Immat Gran (auto) (0.00-0.03) X10*3/uL Absolute Neuts (auto) (2.0-8.3) X10*3/uL Absolute Nucleated RBC (0.0-0.012) X10*3/uL Nucleated RBC % (auto) (0.0-0.2) /100WBC PT (9.9-13.0) SEC INR (0.9-1.1) Sodium 141 (135-145) mmol/L Potassium 5.0 D (3.3-5.1) mmol/L Chloride 105 (96-108) mmol/L Carbon Dioxide 22 (22-29) mmol/L Anion Gap 19 (12-20) BUN 13 D (9-16) mg/dL Creatinine 0.82 (0.5-1.4) mg/dL Estim Creat Clear Calc 96.5 Estimated GFR > 60 Random Glucose 143 H D (60-115) mg/dL Lactic Acid (0.5-2.0) mmol/L Calcium 8.8 (8.4-10.2) mg/dL Troponin I High Sens 8.7 D (<3.5-35.0) ng/L B-Natriuretic Peptide < 10 (<100) pg/mL Urine Color Urine Appearance Urine pH (5.0-8.0) Ur Specific [place] (1.005-1.025) Urine Protein (NEG-TRACE) MG/DL Urine Glucose (UA) (NEG) MG/DL Urine Ketones (NEG) MG/DL Urine Blood (NEG) Urine Nitrite (NEG) Ur Leukocyte Esterase (NEG) Urine RBC (0) /HPF Urine WBC (0-4) /HPF Ur Squamous Epith Cells /LPF Urine Bacteria /LPF Urine Mucus /LPF Coronavirus (PCR) (Negative) Influenza Type A (PCR) (Negative) Influenza Type B (PCR) (Negative) RSV RNA Qual (PCR) (Negative) 09/20/20 09/20/20 Range/Units 15:35 15:35 WBC (4.8-10.8) X10*3/uL RBC (4.60-5.80) X10*6/uL Hgb (14.0-18.0) g/dl Hct (42-52) % MCV (80-98) fL MCH (27.0-33.0) pg MCHC (31.0-36.0) g/dl RDW (11.0-16.0) % Plt Count (160-400) X10*3/uL MPV (9.4-12.4) fL Immature Gran % (Auto) (0.0-0.4) % Neut % (Auto) (45-73) % Lymph % (Auto) (20-40) % [place] % (Auto) (2-11) % Eos % (Auto) (0-4) % Baso % (Auto) (0-2) % Lymph # (Auto) (1.2-4.9) X10*3/uL [place] # (Auto) (0.1-1.2) X10*3/uL Eos # (Auto) (0.0-0.4) X10*3/uL Baso # (Auto) (0.0-0.2) X10*3/uL Abs Immat Gran (auto) (0.00-0.03) X10*3/uL Absolute Neuts (auto) (2.0-8.3) X10*3/uL Absolute Nucleated RBC (0.0-0.012) X10*3/uL Nucleated RBC % (auto) (0.0-0.2) /100WBC PT 18.5 H (9.9-13.0) SEC INR 1.6 H (0.9-1.1) Sodium (135-145) mmol/L Potassium (3.3-5.1) mmol/L Chloride (96-108) mmol/L Carbon Dioxide (22-29) mmol/L Anion Gap (12-20) BUN (9-16) mg/dL Creatinine (0.5-1.4) mg/dL Estim Creat Clear Calc Estimated GFR Random Glucose (60-115) mg/dL Lactic Acid 5.2 H* (0.5-2.0) mmol/L Calcium (8.4-10.2) mg/dL Troponin I High Sens (<3.5-35.0) ng/L B-Natriuretic Peptide (<100) pg/mL Urine Color Urine Appearance Urine pH (5.0-8.0) Ur Specific [place] (1.005-1.025) Urine Protein (NEG-TRACE) MG/DL Urine Glucose (UA) (NEG) MG/DL Urine Ketones (NEG) MG/DL Urine Blood (NEG) Urine Nitrite (NEG) Ur Leukocyte Esterase (NEG) Urine RBC (0) /HPF Urine WBC (0-4) /HPF Ur Squamous Epith Cells /LPF Urine Bacteria /LPF Urine Mucus /LPF Coronavirus (PCR) (Negative) Influenza Type A (PCR) (Negative) Influenza Type B (PCR) (Negative) RSV RNA Qual (PCR) (Negative) ECG Data Attestation: I personally reviewed and interpreted this ECG as follows: Interpretation: sinus tachycardia rate 155, no st or twave changes Critical Care Time Critical Care Time Attestation: I spent 40 minutes of critical care, with interventions, assessments, consultants. Discharge Plan Discharge Clinical Impression: Severe sepsis, Hyperthermia, Hypoxia Patient Disposition: Admitted As Inpatient
--- NOTE | 2020-09-20 14:47 | ECG_ITS ---
Test Reason : TACHY Blood Pressure : / mmHG Vent. Rate : 156 BPM Atrial Rate : 156 BPM P-R Int : 124 ms QRS Dur : 070 ms QT Int : 248 ms P-R-T Axes : 072 256 071 degrees QTc Int : 399 ms Sinus tachycardia Right superior axis deviation Pulmonary disease pattern Abnormal ECG When compared with ECG of 30-AUG-2020 19:20, Fusion complexes are now Present Referred By: Saleem Jaramillo Electronically Signed By:GARCIA WALL MD
[2020-09-20] MEDS: Adenosine 6 MG/2 ML VIAL 12 MG IVPUSH (14:50)
[2020-09-20] MEDS: Acetaminophen Supp 650 MG SUPP.RECT PR (14:59)
[2020-09-20] MEDS: 0.9 % Sodium Chloride 2,475 ML 2475 ML IV (14:59)
--- NOTE | 2020-09-20 15:17 | PC.NURSE ---
Pt very difficult stick- multiple attempts from multiple techs and rns for labs, continueing to try. Provider aware.
--- NOTE | 2020-09-20 15:28 | PC.NURSE ---
Ice packs applied to groin, underarms, and neck. Plan to use cooling blanket once labs are collected.
[2020-09-20 15:31] LABS: Glucose Urine UA NEG (NEG); Leukocyte Esterase Urine NEG (NEG); Nitrite Urine NEG (NEG); PH 7.5 (5.0-8.0); Specific Gravity - Urine 1.015 (1.005-1.025); Urine Blood TRACE (NEG); Urine Ketones 5 MG/DL (NEG); Urine Protein NEG (NEG-TRACE)
[2020-09-20 15:33] LABS: Appearance Urine CLEAR; Color Urine YELLOW
[2020-09-20 15:39] LABS: Mucus Urine 1+ /LPF; Squamous Epithelial Cell Urine TRACE /LPF; WBC Urine 0 /HPF (0-4)
[2020-09-20 15:41] LABS: MANUAL DIFF FLAG NO
[2020-09-20 15:43] LABS: Basophils Percent Auto 0.2 % (0-2); Eosinophils Percent Auto 0.3 % (0-4); Hematocrit 37.9 % (42-52); Hemoglobin 11.6 g/dl (14.0-18.0); Imm Gran Abs Auto 0.05 X10*3/uL (0.00-0.03); Imm Gran Pct Auto 0.5 % (0.0-0.4); Lymphocytes Absolute Auto 0.9 X10*3/uL (1.2-4.9); Mean Corpuscular HGB Conc 30.6 g/dl (31.0-36.0); Mean Corpuscular Hemoglobin 27.7 pg (27.0-33.0); Mean Corpuscular Volume 90.5 fL (80-98); Mean Platelet Volume 9.1 fL (9.4-12.4); Monocytes Absolute Auto 1.3 X10*3/uL (0.1-1.2); Monocytes Percent Auto 14.1 % (2-11); Neutrophils Absolute Auto 6.9 X10*3/uL (2.0-8.3); Neutrophils Percent Auto 74.9 % (45-73); Platelet Count 439 X10*3/uL (160-400); Red Blood Count 4.19 X10*6/uL (4.60-5.80); Red Cell Distribution Width 14.4 % (11.0-16.0); White Blood Count 9.3 X10*3/uL (4.8-10.8)
[2020-09-20 15:49] LABS: INTERNATIONAL NORM RATIO 1.6 (0.9-1.1); Prothrombin Time 18.5 SEC (9.9-13.0)
[2020-09-20 16:08] LABS: Anion Gap 19 (12-20); Blood Urea Nitrogen 13 mg/dL (9-16); Calcium 8.8 mg/dL (8.4-10.2); Carbon Dioxide 22 mmol/L (22-29); Chloride 105 mmol/L (96-108); Creatinine Clr Calc Pharmacy 96.5; Estimated Glomerular Filt Rate > 60; Glucose Random 143 mg/dL (60-115); Sodium 141 mmol/L (135-145)
[2020-09-20 16:09] LABS: Influenza A PCR NEGATIVE (Negative); Influenza B PCR NEGATIVE (Negative); Resp Syncy Virus RNA Qual PCR NEGATIVE (Negative); SARS COV2 PCR INHOUSE NEGATIVE (Negative)
[2020-09-20] MEDS: Piperacillin Sodium/Tazobactam 4.5 GM in 0.9 % Sodium Chloride 100 ML IV (16:10)
[2020-09-20 16:14] LABS: B Type Natriuretic Peptide < 10 pg/mL (<100); Troponin-I High Sensitivity 8.7 ng/L (<3.5-35.0)
[2020-09-20 16:15] LABS: Lactic Acid 5.2 mmol/L (0.5-2.0)
--- NOTE | 2020-09-20 16:34 | PC.NURSE ---
Pt agitated, attempting topull at CPAP mask, lines. CPAP removed and pt placed on 4L nasal cannuyla- tolerating well, remains agitated. Provider aware, and requested new orders.
[2020-09-20] MEDS: vancomycin HCL 1,000 MG in 0.9 % Sodium Chloride 250 ML 270 MG IV (16:52)
--- NOTE | 2020-09-20 16:52 | PC.NURSE ---
Iv fluids infusing slowly r/t pt arm movement, attempted to use board to keep AC straight- pt agitated even more, pressure bag applied. apoorx 750ml cc ns remain.
--- NOTE | 2020-09-20 17:38 | PC.NURSE ---
Pt is resting calmly in bed, no apparent distress at this time. Pending hospitalist. Pt remains on cooling blanket.
[2020-09-20 17:40] LABS: Reflex Lactate? Lactic Acid Added
--- NOTE | 2020-09-20 17:53 | HE.PHANOTE ---
Pharmacy has completed the medication reconciliation and there were no significant medication issues requiring provider attention. Nikky Urena PharmD
--- NOTE | 2020-09-20 18:00 | PC.NURSE ---
Multiple attempts from multiple staff members to obtain repeat lactic- unsuccessful. Phlebotomy called.
[2020-09-20] MEDS: iohexoL 350 MG/ML 100 ML INFUS..BTL IV (19:22)
[2020-09-20 19:26] LABS: ~Lactic Acid-LAB USE ONLY 3.4 mmol/L (0.5-2.0)
--- NOTE | 2020-09-20 19:51 | PC.NURSE ---
Per Dr. Kumar pt is not accepted, Dr. Lopez made aware of pt status and current VS- Pending consult to wiring inspector.
[2020-09-20] MEDS: 0.9 % Sodium Chloride 1,000 ML 999 ML IV (19:56)
[2020-09-20 20:54] LABS: Reflex Lactate? 2 Y
[2020-09-20 21:45] LABS: ~Lactic Acid-LAB USE ONLY 3.1 mmol/L (0.5-2.0)
--- NOTE | 2020-09-20 22:37 | P.HPHOSP_ITS ---
History of Present Illness Date of Service: 09/20/20 Chief Complaint: Fever 64-year-old male with a past medical history of dementia, mood disorder, hypertension, alf resident, history of G-tube, nonverbal at baseline and mostly bedbound, recent admission to the hospital for aspiration pneumonia, with a chief complaint of fever. Patient is nonverbal. Most of the history obtained from the records; ER staff and a spoke to patient's sister Ankur; Patient's sister mentioned that patient had 2 other prior admissions with fever, hypotension, pneumonia; also mentioned that she is concerned about the ulcer on the heel, has been discussing in regards with the alf team. Patient was sent from the alf with a chief complaint of fever. ER course: Patient on presentation noted to be tachycardic to 150s, ER physician has given Indocin; CBC and BMP within the normal limits; lactate was elevated; patient on presentation noted to have fever of 105f. ER team has been CT chest and CT abdomen pelvis; CT abdomen pelvis showed no acute findings; G-tube in place; fully tube in place. CT chest showed bilateral pneumonia and left upper lobe pneumonia concern for aspiration. Patient was given IV vancomycin and Zosyn and admitted to the hospital for further management. Off note: Patient had an episode of hypotension with systolic in 80s in the ER- per RN patient's blood pressure cuff was not in right position; when they re-did the blood pressures were within the normal limits. Patient continued on IV fluids. [facility] Medical History (Updated 09/21/20 @ 07:37 by Bladimir Oneil MD) Advanced dementia Afib Alzheimer disease G tube feedings Glaucoma HTN (hypertension) Mood disorder Social History Household Members: Other Housing: Half-Way Do you presently have visiting nurse or other home services: No Unable to assess alcohol history related to: Unable to respond Alcohol intake: unknown Patient Tobacco Use Status: Tobacco use Unknown Advance Directives Date on File: 08/05/20 service: No (UNKLNOWN) Current occupational status: retired Meds Allergies Allergy/AdvReac Type Severity Reaction Status Date / Time atenolol Allergy Unknown Verified 08/04/20 13:37 duloxetine [From Cymbalta] Allergy Unknown Verified 08/04/20 13:37 ibuprofen Allergy Unknown Verified 08/04/20 13:37 levofloxacin [From Levaquin] Allergy Unknown Verified 08/04/20 13:37 Active Medications: Current Medications Generic Name Dose Route Start Last Admin Trade Name Freq PRN Reason Stop Dose Admin Acetaminophen 650 mg 09/20/20 22:32 Acetaminophen Supp 650 Mg Supp.Rect SD Q6H PRN Pain, Mild (Pain Scale 1-3) Apixaban 5 mg 09/21/20 09:00 Apixaban 5 Mg Tablet G-TUBE BID [facility] Ascorbic Acid 500 mg 09/21/20 09:00 Ascorbic Acid 500 Mg Tablet PO DAILY [facility] Aspirin 81 mg 09/21/20 09:00 Aspirin 81 Mg Tab.Chew G-TUBE DAILY@0900 [facility] Atorvastatin Calcium 10 mg 09/21/20 21:00 Atorvastatin Calcium 10 Mg Tablet G-TUBE BEDTIME [facility] Escitalopram Oxalate 20 mg 09/21/20 21:00 Escitalopram Oxalate 10 Mg Tablet G-TUBE BEDTIME [facility] Famotidine 40 mg 09/21/20 09:00 Famotidine 20 Mg Tablet G-TUBE DAILY@0900 [facility] Olanzapine 5 mg 09/21/20 09:00 Olanzapine 5 Mg Tablet G-TUBE DAILY [facility] Olanzapine 10 mg 09/21/20 21:00 Olanzapine 10 Mg Tablet G-TUBE BEDTIME [facility] Olanzapine 10 mg 09/20/20 22:09 Olanzapine 10 Mg Vial IM BEDTIME PRN if pt refuses bedtime zyprexa Pharmacy Consult 1 each 09/20/20 17:15 Consult Rx Perform Med Rec MISCELLANE ONCE PRN Consult order Sodium Chloride 3 ml 09/21/20 00:00 0.9 % Sodium Chloride Flush 3 Ml Syringe IVFLUSH QSHIFT [facility] Trazodone HCl 100 mg 09/21/20 21:00 Trazodone Hcl 100 Mg Tablet G-TUBE BEDTIME [facility] Valproic Acid 750 mg 09/21/20 09:00 Valproic Acid (As Sodium Salt) 250 Mg/5 Ml Solution G-TUBE BID [facility] Zinc Sulfate 220 mg 09/21/20 09:00 Zinc Sulfate 220 Mg Capsule G-TUBE DAILY [facility] Home Medications Medication Instructions Recorded Confirmed Last Taken Type olanzapine [Zyprexa] 10 mg IM BEDTIME PRN 08/30/20 09/20/20 Unknown History ascorbic acid (vitamin C) [Vitamin 500 mg PO DAILY 09/20/20 09/20/20 09/20/20 History C] ergocalciferol (vitamin D2) 1.25 mcg FEEDING TUBE Q28D 09/20/20 09/20/20 09/20/20 History [Vitamin D2] zinc 50 mg DAILY 09/20/20 09/20/20 09/20/20 History Physical Exam Vital Signs and Narrative: Vital Signs: Last Vital Signs Temp 99.0 F 09/20/20 22:21 Pulse 88 09/20/20 22:21 Resp 17 09/20/20 22:21 BP 129/68 09/20/20 22:21 Pulse Ox 97 09/20/20 22:21 Body Mass Index 27.6 Gen: Appears be in no acute distress; patient is alert and awake; nonverbal; breathing comfortably; HEENT: NCAT, Moist mucosa. Pulmonary: Coarse breath sounds CVS: Normal S1-S2 Abdomen: BS+, Soft, mildly tender diffusely; G-tube in position, surrounding appears clean except for small flecks of dried blood Extremities: Warm well perfused; peripheral pulses palpable; good capillary refill; left heel bottom noted to have an ulcer central eschar, warm surroundings, no discharge. Neuro: Alert and awake. Patient is shivering; appears mildly rigid extremities Results Labs CBC and Chem 7: 09/21/20 15:01 09/21/20 15:01 Labs: Laboratory Results - last 24 hr 09/20/20 09/20/20 09/20/20 15:05 15:05 15:34 MCV 90.5 MCH 27.7 MCHC 30.6 L RDW 14.4 Plt Count 439 H MPV 9.1 L Immature Gran % (Auto) 0.5 H Neut % (Auto) 74.9 H Lymph % (Auto) 10.0 L Gilchrist % (Auto) 14.1 H Eos % (Auto) 0.3 Baso % (Auto) 0.2 Lymph # (Auto) 0.9 L Gilchrist # (Auto) 1.3 H Eos # (Auto) 0.0 Baso # (Auto) 0.0 Abs Immat Gran (auto) 0.05 H Absolute Neuts (auto) 6.9 Absolute Nucleated RBC 0.000 Nucleated RBC % (auto) 0.0 PT INR Anion Gap Estim Creat Clear Calc Estimated GFR Random Glucose Lactic Acid Lactic Acid Fup @ 2Hr Lactic Acid Fup @ 4Hr Calcium Troponin I High Sens B-Natriuretic Peptide Urine Color YELLOW Urine Appearance CLEAR Urine pH 7.5 Ur Specific Reedy 1.015 Urine Protein NEG Urine Glucose (UA) NEG Urine Ketones 5 Urine Blood TRACE Urine Nitrite NEG Ur Leukocyte Esterase NEG Urine RBC 5-9 H Urine WBC 0 Ur Squamous Epith Cells TRACE Urine Bacteria NONE Urine Mucus 1+ Coronavirus (PCR) NEGATIVE Influenza Type A (PCR) NEGATIVE Influenza Type B (PCR) NEGATIVE RSV RNA Qual (PCR) NEGATIVE 09/20/20 09/20/20 09/20/20 15:34 15:34 15:34 MCV MCH MCHC RDW Plt Count MPV Immature Gran % (Auto) Neut % (Auto) Lymph % (Auto) Gilchrist % (Auto) Eos % (Auto) Baso % (Auto) Lymph # (Auto) Gilchrist # (Auto) Eos # (Auto) Baso # (Auto) Abs Immat Gran (auto) Absolute Neuts (auto) Absolute Nucleated RBC Nucleated RBC % (auto) PT INR Anion Gap 19 Estim Creat Clear Calc 96.5 Estimated GFR > 60 Random Glucose 143 H D Lactic Acid Lactic Acid Fup @ 2Hr Lactic Acid Fup @ 4Hr Calcium 8.8 Troponin I High Sens 8.7 D B-Natriuretic Peptide < 10 Urine Color Urine Appearance Urine pH Ur Specific Reedy Urine Protein Urine Glucose (UA) Urine Ketones Urine Blood Urine Nitrite Ur Leukocyte Esterase Urine RBC Urine WBC Ur Squamous Epith Cells Urine Bacteria Urine Mucus Coronavirus (PCR) Influenza Type A (PCR) Influenza Type B (PCR) RSV RNA Qual (PCR) 09/20/20 09/20/20 09/20/20 15:35 15:35 18:47 MCV MCH MCHC RDW Plt Count MPV Immature Gran % (Auto) Neut % (Auto) Lymph % (Auto) Gilchrist % (Auto) Eos % (Auto) Baso % (Auto) Lymph # (Auto) Gilchrist # (Auto) Eos # (Auto) Baso # (Auto) Abs Immat Gran (auto) Absolute Neuts (auto) Absolute Nucleated RBC Nucleated RBC % (auto) PT 18.5 H INR 1.6 H Anion Gap Estim Creat Clear Calc Estimated GFR Random Glucose Lactic Acid 5.2 H* Lactic Acid Fup @ 2Hr 3.4 H* Lactic Acid Fup @ 4Hr Calcium Troponin I High Sens B-Natriuretic Peptide Urine Color Urine Appearance Urine pH Ur Specific Reedy Urine Protein Urine Glucose (UA) Urine Ketones Urine Blood Urine Nitrite Ur Leukocyte Esterase Urine RBC Urine WBC Ur Squamous Epith Cells Urine Bacteria Urine Mucus Coronavirus (PCR) Influenza Type A (PCR) Influenza Type B (PCR) RSV RNA Qual (PCR) 09/20/20 21:06 MCV MCH MCHC RDW Plt Count MPV Immature Gran % (Auto) Neut % (Auto) Lymph % (Auto) Gilchrist % (Auto) Eos % (Auto) Baso % (Auto) Lymph # (Auto) Gilchrist # (Auto) Eos # (Auto) Baso # (Auto) Abs Immat Gran (auto) Absolute Neuts (auto) Absolute Nucleated RBC Nucleated RBC % (auto) PT INR Anion Gap Estim Creat Clear Calc Estimated GFR Random Glucose Lactic Acid Lactic Acid Fup @ 2Hr Lactic Acid Fup @ 4Hr 3.1 H* Calcium Troponin I High Sens B-Natriuretic Peptide Urine Color Urine Appearance Urine pH Ur Specific Reedy Urine Protein Urine Glucose (UA) Urine Ketones Urine Blood Urine Nitrite Ur Leukocyte Esterase Urine RBC Urine WBC Ur Squamous Epith Cells Urine Bacteria Urine Mucus Coronavirus (PCR) Influenza Type A (PCR) Influenza Type B (PCR) RSV RNA Qual (PCR) Imaging Radiologist's Impressions: Impressions Chest X-Ray 09/20/20 14:47 IMPRESSION: Unremarkable chest exam. Abdomen/Pelvis CT 09/20/20 18:14 IMPRESSION: 1. No evidence of pulmonary embolism. 2. Bibasilar airspace disease and patchy airspace disease in the left upper lobe. 3. No acute abnormality the abdomen or pelvis. Percutaneous gastrotomy catheter in place. Escalante catheter in bladder. Chest CTA 09/20/20 18:14 IMPRESSION: 1. No evidence of pulmonary embolism. 2. Bibasilar airspace disease and patchy airspace disease in the left upper lobe. 3. No acute abnormality the abdomen or pelvis. Percutaneous gastrotomy catheter in place. Escalante catheter in bladder. Head CT 09/20/20 20:09 IMPRESSION: No acute intracranial process seen. There is moderate cerebral atrophy with chronic small vessel ischemic changes Assessment and Plan (1) Aspiration pneumonitis: Status: Acute 64-year-old male with a past medical history of hypertension, AFib, history of DVT on Eliquis, history of severe dementia, bedbound, nonverbal, history of G-tube; history of recurrent aspiration pneumonia; recent admission for aspiration pneumonia/hypernatremia/encephalopathy; presented to the hospital today with a chief complaint of fever. Sepsis/Rec aspiration pneumonia: Patient noted to have fever of 105, elevated lactate, tachycardia, slightly elevated white count confirm his baseline; CT chest consistent with aspiration pneumonia. Continue IV vancomycin and Zosyn. Follow-up cultures Left heel ulcer: Appears subacute to chronic; noted to have surrounding warmth- concern for cellulitis; no discharge noted. Pressure ulcer care per RN. Wound care consult. CT of the foot. Patient on antibiotics as mentioned above. Will consult General surgery given concerns for high risk of osteomyelitis. ID consult for further recommendations Fever: on exam noted to be shaky, stiff in general, more so on the lower extremities; Upon reviewing the old records-patient had similar presentation in August of 2020. Question neuroleptic malignant syndrome versus drug-induced Parkinsonism. Patient on olanzapine at home--> will hold for now. Neurology consult for further recommendations History of mood disorder: Continue home Depakote History of G-tube: Will hold the tube feeds for now nutrition consult. Given r ecurrent episodes of aspiration pneumonia would defer to the nutrition consult to consider keeping the tube feeds at low rate. History of AFib/DVT: Patient initially on presentation noted to be in rapid ventricular response. Received adenosine by the ER physician. Currently heart rate is well controlled. Continue Eliquis. Goals of care discussion: Discussed with the patient's sister Ankur at length, in regards the patient's current health situation, critical nature of his hospital admission, also had brief discussions about the goals of care, treatment options. Patient's history is very concerned about his management at the current alf; and does not want the patient to go back to the same alf. Also mentioned that she would like to discuss with the day hospitalist, Dr. Narayan, social service technician, case management in the morning about the patient's goals of care and further management options. patient sister wants the patient to be full code, requesting to continue all the necessary treatments needed to keep her brother alive. Code status: Full code Quality Stroke Does the patient have a stroke diagnosis?: No VTE Prior VTE?: No VTE Risk Level:: Medical - moderate - high VTE Device Contraindication: Treatment Not Indicated VTE Drug Contraindication: Treatment Not Indicated
[2020-09-21] VITALS (15 sets, daily range): BP systolic 80–126; BP diastolic 46–76; PULSE 64–95; RESP 14–23; TEMP 36.5–37.7; O2SAT 96–100
[2020-09-21] MEDS: Piperacillin Sodium/Tazobactam 3.375 GM in 0.9 % Sodium Chloride 50 ML IV ×3 (02:52→13:13)
[2020-09-21] MEDS: vancomycin HCL 1,250 MG in 0.9 % Sodium Chloride 250 ML 166.67 MG IV (06:01)
--- NOTE | 2020-09-21 06:57 | PC.NURSE ---
PT WAS REPOSITIONED Q 4 HOURS, FREQUENT MOUTH CARE PROVIDED, HEELS WITH BILATERAL WOUNDS, PLACED HEEL FLOATERS TO OFFLOAD PRESSURE.
[2020-09-21] MEDS: Zinc Sulfate 220 MG CAPSULE G-TUBE (08:27)
[2020-09-21] MEDS: Famotidine 20 MG TABLET 40 MG G-TUBE (08:29)
[2020-09-21] MEDS: Ascorbic Acid 500 MG TABLET PO (08:30)
[2020-09-21] MEDS: Aspirin 81 MG TAB.CHEW G-TUBE (08:30)
[2020-09-21] MEDS: Apixaban 5 MG TABLET G-TUBE ×2 (08:31→22:05)
[2020-09-21] MEDS: 0.9 % Sodium Chloride Flush 3 ML SYRINGE IVFLUSH ×3 (08:38→22:06)
[2020-09-21 09:15] LABS: Basophils Percent Auto 0.2 % (0-2); Eosinophils Absolute Auto 0.1 X10*3/uL (0.0-0.4); Eosinophils Percent Auto 1.1 % (0-4); Hematocrit 32.4 % (42-52); Hemoglobin 9.8 g/dl (14.0-18.0); Imm Gran Abs Auto 0.03 X10*3/uL (0.00-0.03); Imm Gran Pct Auto 0.3 % (0.0-0.4); Lymphocytes Absolute Auto 1.6 X10*3/uL (1.2-4.9); Lymphocytes Percent Auto 15.9 % (20-40); MANUAL DIFF FLAG SCAN; Mean Corpuscular HGB Conc 30.2 g/dl (31.0-36.0); Mean Corpuscular Hemoglobin 27.5 pg (27.0-33.0); Mean Platelet Volume 9.1 fL (9.4-12.4); Monocytes Absolute Auto 1.9 X10*3/uL (0.1-1.2); Monocytes Percent Auto 19.2 % (2-11); Neutrophils Absolute Auto 6.4 X10*3/uL (2.0-8.3); Neutrophils Percent Auto 63.3 % (45-73); Platelet Count 284 X10*3/uL (160-400); Red Blood Count 3.56 X10*6/uL (4.60-5.80); Red Cell Distribution Width 14.6 % (11.0-16.0); SCAN SMEAR FLAG 1
[2020-09-21 09:44] LABS: Anion Gap 13 (12-20); Blood Urea Nitrogen 9 mg/dL (9-16); Calcium 8.5 mg/dL (8.4-10.2); Carbon Dioxide 25 mmol/L (22-29); Chloride 110 mmol/L (96-108); Creatinine Clr Calc Pharmacy 119.9; Estimated Glomerular Filt Rate > 60; Glucose Random 95 mg/dL (60-115); Potassium 4.2 mmol/L (3.3-5.1); Sodium 144 mmol/L (135-145)
[2020-09-21] MEDS: 0.9 % Sodium Chloride 1,000 ML 999 ML IVCONT (10:38)
[2020-09-21 10:44] LABS: Alanine Aminotransferase 15 U/L (0-40); Albumin Level 2.8 g/dL (3.5-5.0); Alkaline Phosphatase 63 U/L (39-117); Aspartate Amino Transferase 31 U/L (5-37); Bilirubin Direct 0.3 mg/dL (0.0-0.5); Bilirubin Total 0.6 mg/dL (0.0-1.0); Phosphorus 3.9 mg/dL (2.7-4.5); Total Protein 6.4 g/dL (6.5-8.0)
[2020-09-21 10:45] LABS: SLIDE REVIEW VERIFIED
--- NOTE | 2020-09-21 10:58 | PC.NURSE ---
received report from rick villasenor dr at bedside speaking to family members about the next plan of tx for this pt. pt is non-verbal, normal sinus on the monitor and hypertensive at this time in the 70's for systolic
[2020-09-21] MEDS: Albumin Human 25 % 100 ML IV (11:24)
[2020-09-21] MEDS: Sodium Chloride 0.45 % 1,000 ML 500 ML IVCONT (11:25)
--- NOTE | 2020-09-21 12:03 | P.PNIM_ITS ---
Subjective Subjective Date of Service: 09/21/20 Interval History: unable to provide Physical Exam Vital Signs: Vital Signs: Last Vital Signs Temp 98.6 F 09/21/20 11:46 Pulse 77 09/21/20 11:46 Resp 18 09/21/20 11:46 BP 103/60 09/21/20 11:46 Pulse Ox 97 09/21/20 11:46 Body Mass Index 27.6 General: obtunded, ill appearing Resp: rhonchi CVS: S1,S2,RRR GI: soft, gtube in place, non distended Neuro: obtunded Psych: impaired insight Objective Data Current Medications Generic Name Dose Route Start Last Admin Trade Name Freq PRN Reason Stop Dose Admin Acetaminophen 650 mg 09/20/20 22:32 Acetaminophen Supp 650 Mg Supp.Rect AL Q6H PRN Pain, Mild (Pain Scale 1-3) Apixaban 5 mg 09/21/20 09:00 09/21/20 08:31 Apixaban 5 Mg Tablet G-TUBE 5 mg BID ARPIT Administration Ascorbic Acid 500 mg 09/21/20 09:00 09/21/20 08:30 Ascorbic Acid 500 Mg Tablet PO 500 mg DAILY ARPIT Administration Aspirin 81 mg 09/21/20 09:00 09/21/20 08:30 Aspirin 81 Mg Tab.Chew G-TUBE 81 mg DAILY@0900 ARPIT Administration Atorvastatin Calcium 10 mg 09/21/20 21:00 Atorvastatin Calcium 10 Mg Tablet G-TUBE BEDTIME ARPIT Escitalopram Oxalate 20 mg 09/21/20 21:00 Escitalopram Oxalate 10 Mg Tablet G-TUBE BEDTIME ARPIT Famotidine 40 mg 09/21/20 09:00 09/21/20 08:29 Famotidine 20 Mg Tablet G-TUBE 40 mg DAILY@0900 ARPIT Administration Piperacillin Sod/Tazobactam 50 mls @ 100 mls/hr 09/21/20 00:00 09/21/20 08:31 Sod 3.375 gm/ Sodium Chloride IV 100 mls/hr Q6H ARPIT Administration Sodium Chloride 1,000 mls @ 999 mls/hr 09/21/20 10:15 09/21/20 10:38 Ns IVCONT 09/21/20 12:15 999 mls/hr .Q1H1M ARPIT Administration Albumin Human 100 mls @ 100 mls/hr 09/21/20 11:05 09/21/20 11:24 Kedbumin 25 % IV 09/21/20 12:04 100 mls/hr ONCE STA Administration Sodium Chloride 1,000 mls @ 500 mls/hr 09/21/20 11:15 09/21/20 11:25 IVCONT 09/21/20 13:14 500 mls/hr .Q2H ARPIT Administration Pharmacy Consult 1 each 09/20/20 17:15 Consult Rx Perform Med Rec MISCELLANE ONCE PRN Consult order Pharmacy Consult 1 each 09/20/20 23:33 Consult Rx Vancomycin Dosing MISCELLANE DAILY PRN Consult order Sodium Chloride 3 ml 09/21/20 00:00 09/21/20 08:38 0.9 % Sodium Chloride Flush 3 Ml Syringe IVFLUSH 3 ml QSHIFT ARPIT Administration Trazodone HCl 100 mg 09/21/20 21:00 Trazodone Hcl 100 Mg Tablet G-TUBE BEDTIME ARPIT Valproic Acid 750 mg 09/21/20 09:00 09/21/20 08:28 Valproic Acid (As Sodium Salt) 250 Mg/5 Ml Solution G-TUBE 750 mg BID ARPIT Administration Zinc Sulfate 220 mg 09/21/20 09:00 09/21/20 08:27 Zinc Sulfate 220 Mg Capsule G-TUBE 220 mg DAILY ARPIT Administration Labs CBC & Chem 7: 09/21/20 09:01 09/21/20 09:01 Labs: Laboratory Results - last 24 hr 09/20/20 09/20/20 09/20/20 15:05 15:05 15:34 WBC 9.3 RBC 4.19 L Hgb 11.6 L Hct 37.9 L MCV 90.5 MCH 27.7 MCHC 30.6 L RDW 14.4 Plt Count 439 H MPV 9.1 L Immature Gran % (Auto) 0.5 H Neut % (Auto) 74.9 H Lymph % (Auto) 10.0 L [place] % (Auto) 14.1 H Eos % (Auto) 0.3 Baso % (Auto) 0.2 Lymph # (Auto) 0.9 L [place] # (Auto) 1.3 H Eos # (Auto) 0.0 Baso # (Auto) 0.0 Abs Immat Gran (auto) 0.05 H Absolute Neuts (auto) 6.9 Absolute Nucleated RBC 0.000 Nucleated RBC % (auto) 0.0 Smear Tech's Comments PT INR Sodium Potassium Chloride Carbon Dioxide Anion Gap BUN Creatinine Estim Creat Clear Calc Estimated GFR Random Glucose Lactic Acid Lactic Acid Fup @ 2Hr Lactic Acid Fup @ 4Hr Calcium Phosphorus Magnesium Total Bilirubin Direct Bilirubin AST ALT Alkaline Phosphatase Total Creatine Kinase Troponin I High Sens B-Natriuretic Peptide Total Protein Albumin Urine Color YELLOW Urine Appearance CLEAR Urine pH 7.5 Ur Specific [place] 1.015 Urine Protein NEG Urine Glucose (UA) NEG Urine Ketones 5 Urine Blood TRACE Urine Nitrite NEG Ur Leukocyte Esterase NEG Urine RBC 5-9 H Urine WBC 0 Ur Squamous Epith Cells TRACE Urine Bacteria NONE Urine Mucus 1+ Coronavirus (PCR) NEGATIVE Influenza Type A (PCR) NEGATIVE Influenza Type B (PCR) NEGATIVE RSV RNA Qual (PCR) NEGATIVE 09/20/20 09/20/20 09/20/20 15:34 15:34 15:34 WBC RBC Hgb Hct MCV MCH MCHC RDW Plt Count MPV Immature Gran % (Auto) Neut % (Auto) Lymph % (Auto) [place] % (Auto) Eos % (Auto) Baso % (Auto) Lymph # (Auto) [place] # (Auto) Eos # (Auto) Baso # (Auto) Abs Immat Gran (auto) Absolute Neuts (auto) Absolute Nucleated RBC Nucleated RBC % (auto) Smear Tech's Comments PT INR Sodium 141 Potassium 5.0 D Chloride 105 Carbon Dioxide 22 Anion Gap 19 BUN 13 D Creatinine 0.82 Estim Creat Clear Calc 96.5 Estimated GFR > 60 Random Glucose 143 H D Lactic Acid Lactic Acid Fup @ 2Hr Lactic Acid Fup @ 4Hr Calcium 8.8 Phosphorus Magnesium Total Bilirubin Direct Bilirubin AST ALT Alkaline Phosphatase Total Creatine Kinase 58 D Troponin I High Sens 8.7 D B-Natriuretic Peptide < 10 Total Protein Albumin Urine Color Urine Appearance Urine pH Ur Specific [place] Urine Protein Urine Glucose (UA) Urine Ketones Urine Blood Urine Nitrite Ur Leukocyte Esterase Urine RBC Urine WBC Ur Squamous Epith Cells Urine Bacteria Urine Mucus Coronavirus (PCR) Influenza Type A (PCR) Influenza Type B (PCR) RSV RNA Qual (PCR) 09/20/20 09/20/20 09/20/20 15:35 15:35 18:47 WBC RBC Hgb Hct MCV MCH MCHC RDW Plt Count MPV Immature Gran % (Auto) Neut % (Auto) Lymph % (Auto) [place] % (Auto) Eos % (Auto) Baso % (Auto) Lymph # (Auto) [place] # (Auto) Eos # (Auto) Baso # (Auto) Abs Immat Gran (auto) Absolute Neuts (auto) Absolute Nucleated RBC Nucleated RBC % (auto) Smear Tech's Comments PT 18.5 H INR 1.6 H Sodium Potassium Chloride Carbon Dioxide Anion Gap BUN Creatinine Estim Creat Clear Calc Estimated GFR Random Glucose Lactic Acid 5.2 H* Lactic Acid Fup @ 2Hr 3.4 H* Lactic Acid Fup @ 4Hr Calcium Phosphorus Magnesium Total Bilirubin Direct Bilirubin AST ALT Alkaline Phosphatase Total Creatine Kinase Troponin I High Sens B-Natriuretic Peptide Total Protein Albumin Urine Color Urine Appearance Urine pH Ur Specific [place] Urine Protein Urine Glucose (UA) Urine Ketones Urine Blood Urine Nitrite Ur Leukocyte Esterase Urine RBC Urine WBC Ur Squamous Epith Cells Urine Bacteria Urine Mucus Coronavirus (PCR) Influenza Type A (PCR) Influenza Type B (PCR) RSV RNA Qual (PCR) 09/20/20 09/21/20 09/21/20 21:06 09:01 09:01 WBC 10.0 RBC 3.56 L Hgb 9.8 L Hct 32.4 L MCV 91.0 MCH 27.5 MCHC 30.2 L RDW 14.6 Plt Count 284 D MPV 9.1 L Immature Gran % (Auto) 0.3 Neut % (Auto) 63.3 Lymph % (Auto) 15.9 L [place] % (Auto) 19.2 H Eos % (Auto) 1.1 Baso % (Auto) 0.2 Lymph # (Auto) 1.6 [place]ores # (Auto) 1.9 H Eos # (Auto) 0.1 Baso # (Auto) 0.0 Abs Immat Gran (auto) 0.03 Absolute Neuts (auto) 6.4 Absolute Nucleated RBC 0.000 Nucleated RBC % (auto) 0.0 Smear Tech's Comments VERIFIED PT INR Sodium 144 Potassium 4.2 Chloride 110 H Carbon Dioxide 25 Anion Gap 13 BUN 9 Creatinine 0.66 Estim Creat Clear Calc 119.9 Estimated GFR > 60 Random Glucose 95 Lactic Acid Lactic Acid Fup @ 2Hr Lactic Acid Fup @ 4Hr 3.1 H* Calcium 8.5 Phosphorus 3.9 Magnesium 2.0 Total Bilirubin 0.6 Direct Bilirubin 0.3 AST 31 ALT 15 Alkaline Phosphatase 63 D Total Creatine Kinase Troponin I High Sens B-Natriuretic Peptide Total Protein 6.4 L Albumin 2.8 L Urine Color Urine Appearance Urine pH Ur Specific [place] Urine Protein Urine Glucose (UA) Urine Ketones Urine Blood Urine Nitrite Ur Leukocyte Esterase Urine RBC Urine WBC Ur Squamous Epith Cells Urine Bacteria Urine Mucus Coronavirus (PCR) Influenza Type A (PCR) Influenza Type B (PCR) RSV RNA Qual (PCR) Quality Stroke Does the patient have a stroke diagnosis?: No VTE Prior VTE?: Yes VTE Risk Level:: Medical - moderate - high VTE Device Contraindication: Treatment Not Indicated VTE Drug Contraindication: N/A - Med Ordered Assessment and Plan (1) Severe sepsis: Status: Acute (2) Aspiration pneumonitis: Status: Acute (3) Acute metabolic encephalopathy: Status: Acute Assessment and Plan: 64M sent [place] for hypoxia acute hypoxic respiratory failure, severe sepsis present on admission due to aspiration pnuemonia complicated by metabolic encephalopathy zosyn HOB >30 IVF follow up cultures left heel ulcer wound care zosyn history of afib/dvt continue elquis fevers likely due to sepsis as CPK low, previously not felt to be NMS by neuro but as patient obtunded will dc antipsychotics bipolar hold depakote for lethargy dyphagia gtube full code - sister aware of grave prognosis
--- NOTE | 2020-09-21 12:07 | W.PM.CCCN ---
History of Present Illness Data of Consult Service Date: 09/21/20 Requesting physician: Bladimir Oneil Primary Care Provider: Smita Modi MD HPI I was asked by Dr. Oneil to see Mr. Sharp in the ED bec of hypotension. The patient is very well known to me from his two prior admissions to the hospital and ICU. See my last note of 09/04/20. In brief, the patient has end stage dementia, probably Alzheimer?s, with progression into behavioral difficulty, difficulty swallowing, recurrent aspiration, and further mental deterioration. On September 02, I had a one hour telephone conference call with the patient's sister Michael (the healthcare proxy; [phone]) and the patient's other sister Gris ([phone]). I went over the details of the patient's medical condition as described above. My main message was that he is at the end of life, and even though he is not actively dying because his heart is healthy, I was doubtful that he would live long. He is unable to eat and will have recurrent problems with hypovolemia, hypernatremia, and recurrent aspiration. I recommended against a feeding tube. However a feeding tube was placed on September 15, prior to his discharge. The patient was sent back to the [facility] ED yesterday bec of increased WOB and hypoxemia. He was initially febrile to 105?, tachycardic, tachypneic, and hypoxemic. The tachycardia, tachypnea, and hypoxemia resolved as the fever resolved and he was volume resuscitated. W/u in the ED including chest CT indicated bilat aspiration and hypovolemia. Chest CT showed very small bilat posterior LL infiltrates. I saw the patient in the ED last night at about 8pm. By that time, he was breathing easy w Sat 97% on room air, HR and BP were normal, and he looked thoroughly nontoxic. He was awake, nonverbal, and noninteractive. His condition looked identical to how he usually looks. This morning, he?s afebrile, HR 70?s, breathing easy with Sat 96-100% on room air, looks thoroughly nontoxic. BP thru the night was mostly 110?s, 120?s. This morning dropped down to 80s-90?s. WBC up to 10, Hb down to 9.8 from 11.6 yest after vol resuscitation. BUN/creat down to 9/0.6 from 13/0.8 yest (baseline is about 3/0.5). He has no JVD and no edema. Abdomen is benign, PEG tube looks good. Bedside ECHOCARDIOGRAM in the ED done by me: Image quality: Difficult. No parasternal images obtainable. Findings: 1. Wall thickness normal or top normal. 2. LV cavity size is normal, with normal LV function and no regional wall motion abnormalities. EF at least 60%. 3. RV cavity size normal or low normal. RV:LV cavity ratio approximately 0.5. 4. Atria not evaluated. 5. AoV not evaluated. 6. MV morphologically normal with no MR by color italia. 7. TV morphologically normal. Unable to obtain any Doppler signals. 8. IVC measured 1.5 cm with 30-50% inspiratory collapse. IMPRESSION: 1. This is a patient with end stage dementia, probably Alzheimer?s, with progression into behavioral difficulty, difficulty swallowing, recurrent aspiration, and further mental deterioration. To emphasize the main point, a feeding tube allows an avenue for nutrition and hydration, it does not prevent aspiration, which is expected. 2. The episode yesterday was undoubtedly another expected classic aspiration event, characterized by fever, tachycardia, and respiratory distress. Fortunately, the symptoms resolved and he did not develop pneumonia, as demonstrated by the fact that his SpO2 is up to 100% on room air this morning. Furthermore, he is afebrile with a normal white count, not even a left shift. Strictly speaking, no antibiotics are indicated. (It has been known for decades that antibiotics are not indicated in the case of aspiration, unless the patient develops pneumonia.) 3. Hypotension. The echo is suggestive of fluid responsiveness. I have written orders for a liter of half-normal saline, along with albumin. While I was in the ED, I spoke with the patient's sister Jennifer at length. We discussed his condition and I emphasized that everything was the same as our prior conversation (referenced above). I discussed hospice with her, and she seemed convinced that that was the right avenue to pursue. But she told me that her sister Michael was the healthcare proxy and I needed to talk with her. I therefore called Michael on the telephone. I had the same conversation with her and, again, emphasized everything we talked about during our prior conversations. Michael was willing to consider hospice, but was unwilling to consider DNR status at this time. I emphasized countless times that he was in the ending phase of life. Despite how many times I discussed and emphasized that with her, it is not at all clear to me that she fully understands what?s going on. Given that further discussion would have been inappropriately argumentative, I left it at that. I offered to have a social services specialist call her and to talk about hospice. She was very welcoming about that. I have discussed all the above with Dr. Oneil. Medically, organ perfusion, as demonstrated by his improved mental status, breathing, heart rate, and renal indices, appears to be adequate, regardless of his blood pressure. I am not willing to admit the patient to the ICU at this time. Furthermore, in my opinion, life support would be grossly inappropriate, if not unethical, regardless of the patient's family's wishes. Time: 80 minutes. [facility] Past Medical History Medical History (Updated 09/21/20 @ 07:37 by Bladimir Oneil MD) Advanced dementia Afib Alzheimer disease G tube feedings Glaucoma HTN (hypertension) Mood disorder Social History Social History Household Members: None Housing: Assisted Living Facility Do you presently have visiting nurse or other home services: No Unable to assess alcohol history related to: Unable to respond Alcohol intake: unknown Patient Tobacco Use Status: Tobacco use Unknown Advance Directives Date on File: 08/05/20 service: No ([place]) Current occupational status: retired Meds Allergies Allergy/AdvReac Type Severity Reaction Status Date / Time atenolol Allergy Unknown Verified 08/04/20 13:37 duloxetine [From Cymbalta] Allergy Unknown Verified 08/04/20 13:37 ibuprofen Allergy Unknown Verified 08/04/20 13:37 levofloxacin [From Levaquin] Allergy Unknown Verified 08/04/20 13:37 Active Medications: Current Medications Generic Name Dose Route Start Last Admin Trade Name Freq PRN Reason Stop Dose Admin Acetaminophen 650 mg 09/20/20 22:32 Acetaminophen Supp 650 Mg Supp.Rect MO Q6H PRN Pain, Mild (Pain Scale 1-3) Apixaban 5 mg 09/21/20 09:00 09/21/20 08:31 Apixaban 5 Mg Tablet G-TUBE 5 mg BID ARPIT Administration Ascorbic Acid 500 mg 09/21/20 09:00 09/21/20 08:30 Ascorbic Acid 500 Mg Tablet PO 500 mg DAILY ARPIT Administration Aspirin 81 mg 09/21/20 09:00 09/21/20 08:30 Aspirin 81 Mg Tab.Chew G-TUBE 81 mg DAILY@0900 ARPIT Administration Atorvastatin Calcium 10 mg 09/21/20 21:00 Atorvastatin Calcium 10 Mg Tablet G-TUBE BEDTIME ARPIT Escitalopram Oxalate 20 mg 09/21/20 21:00 Escitalopram Oxalate 10 Mg Tablet G-TUBE BEDTIME ARPIT Famotidine 40 mg 09/21/20 09:00 09/21/20 08:29 Famotidine 20 Mg Tablet G-TUBE 40 mg DAILY@0900 ARPIT Administration Piperacillin Sod/Tazobactam 50 mls @ 100 mls/hr 09/21/20 00:00 09/21/20 08:31 Sod 3.375 gm/ Sodium Chloride IV 100 mls/hr Q6H ARPIT Administration Sodium Chloride 1,000 mls @ 999 mls/hr 09/21/20 10:15 09/21/20 10:38 Ns IVCONT 09/21/20 12:15 999 mls/hr .Q1H1M ARPIT Administration Sodium Chloride 1,000 mls @ 500 mls/hr 09/21/20 11:15 09/21/20 11:25 IVCONT 09/21/20 13:14 500 mls/hr .Q2H ARPIT Administration Pharmacy Consult 1 each 09/20/20 17:15 Consult Rx Perform Med Rec MISCELLANE ONCE PRN Consult order Pharmacy Consult 1 each 09/20/20 23:33 Consult Rx Vancomycin Dosing MISCELLANE DAILY PRN Consult order Sodium Chloride 3 ml 09/21/20 00:00 09/21/20 08:38 0.9 % Sodium Chloride Flush 3 Ml Syringe IVFLUSH 3 ml QSHIFT ARPIT Administration Trazodone HCl 100 mg 09/21/20 21:00 Trazodone Hcl 100 Mg Tablet G-TUBE BEDTIME ARPIT Valproic Acid 750 mg 09/21/20 09:00 09/21/20 08:28 Valproic Acid (As Sodium Salt) 250 Mg/5 Ml Solution G-TUBE 750 mg BID ARPIT Administration Zinc Sulfate 220 mg 09/21/20 09:00 09/21/20 08:27 Zinc Sulfate 220 Mg Capsule G-TUBE 220 mg DAILY ARPIT Administration Home Medications Medication Instructions Recorded Confirmed Last Taken Type olanzapine [Zyprexa] 10 mg IM BEDTIME PRN 08/30/20 09/20/20 Unknown History ascorbic acid (vitamin C) [Vitamin 500 mg PO DAILY 09/20/20 09/20/20 09/20/20 History C] ergocalciferol (vitamin D2) 1.25 mcg FEEDING TUBE Q28D 09/20/20 09/20/20 09/20/20 History [Vitamin D2] zinc 50 mg DAILY 09/20/20 09/20/20 09/20/20 History Physical Exam Vital Signs: Vital Signs: Last Vital Signs Temp 98.6 F 09/21/20 11:46 Pulse 77 09/21/20 11:46 Resp 18 09/21/20 11:46 BP 103/60 09/21/20 11:46 Pulse Ox 97 09/21/20 11:46 Body Mass Index 27.6 Results Labs CBC & Chem 7: 09/21/20 09:01 09/21/20 09:01 Labs: Short CBC 09/20/20 09/21/20 Range/Units 15:34 09:01 WBC 9.3 10.0 (4.8-10.8) X10*3/uL Hgb 11.6 L 9.8 L (14.0-18.0) g/dl Hct 37.9 L 32.4 L (42-52) % Plt Count 439 H 284 D (160-400) X10*3/uL BMP 09/20/20 09/21/20 15:34 09:01 Sodium 141 144 Potassium 5.0 D 4.2 Chloride 105 110 H Carbon Dioxide 22 25 BUN 13 D 9 Creatinine 0.82 0.66 Calcium 8.8 8.5 Cardiac Enzymes 09/20/20 Range/Units 15:34 Total Creatine Kinase 58 D (38-174) U/L Liver Function 09/21/20 Range/Units 09:01 Total Bilirubin 0.6 (0.0-1.0) mg/dL Direct Bilirubin 0.3 (0.0-0.5) mg/dL AST 31 (5-37) U/L ALT 15 (0-40) U/L Alkaline Phosphatase 63 D (39-117) U/L Albumin 2.8 L (3.5-5.0) g/dL Urine 09/20/20 Range/Units 15:05 Urine Color YELLOW Urine Appearance CLEAR Urine pH 7.5 (5.0-8.0) Ur Specific [place] 1.015 (1.005-1.025) Urine Protein NEG (NEG-TRACE) MG/DL Urine Glucose (UA) NEG (NEG) MG/DL
[2020-09-21 15:07] LABS: VBG Base Excess 0.2 mmol/L; VBG HCO3 23 mmol/L (22-26); VBG pCO2 31 mmHg; VBG pH 7.47 (7.32-7.43); VBG pO2 45 mmHg
[2020-09-21 15:12] LABS: Hematocrit 29.1 % (42-52); Mean Corpuscular HGB Conc 30.9 g/dl (31.0-36.0); Mean Corpuscular Hemoglobin 27.7 pg (27.0-33.0); Mean Corpuscular Volume 89.5 fL (80-98); Mean Platelet Volume 9.1 fL (9.4-12.4); Platelet Count 224 X10*3/uL (160-400); Red Blood Count 3.25 X10*6/uL (4.60-5.80); Red Cell Distribution Width 14.6 % (11.0-16.0); White Blood Count 7.8 X10*3/uL (4.8-10.8)
[2020-09-21 15:32] LABS: Lactic Acid 1.6 mmol/L (0.5-2.0)
[2020-09-21 15:36] LABS: Anion Gap 14 (12-20); Blood Urea Nitrogen 10 mg/dL (9-16); C Reactive Protein 8.04 mg/dL (< or = 0.50); Calcium 8.3 mg/dL (8.4-10.2); Carbon Dioxide 22 mmol/L (22-29); Chloride 110 mmol/L (96-108); Creatinine Clr Calc Pharmacy 125.6; Estimated Glomerular Filt Rate > 60; Glucose Random 78 mg/dL (60-115); Sodium 142 mmol/L (135-145)
[2020-09-21 15:44] LABS: Troponin-I High Sensitivity 13.7 ng/L (<3.5-35.0)
--- NOTE | 2020-09-21 15:44 | MHC.CM.PN ---
Addendum entered by Deann Ware 09/21/20 15:58: IMM to be sent via mail to pts sister/guardian, Abebe Original Note: Pt readmitted from [facility] with ? aspiration PNA - pt had a peg placed during last [facility] admission d/t continued failing of swallow eval and inability to follow commands. Of note, pt is on probation from [facility] facility being released to [facility]. His network security officer is Cristhian Puckett who is required to visit pt 1x weekly and may present to [facility]. Received call from SAIDA Panye at [facility]. She states that pt has been exhibiting difficulty clearing oral secretions, (pt is NPO on tube feeds.) Pt's sister and legal guardian, Dee visited pt at [facility] last week and brought him a cell phone to use (pt is non communicative) and had concerns about his failure to progress and walk or speak. Pt is non verbal, end stage dementia and is totally dependent for all care needs. Kerry feels family is not realistic about pt's prognosis and may request pt to transfer to another SNF - because pt is on probation, this request will have to be pursued by family through the court system per Kerry. Pt will return to [facility] when medically stable. CM will follow for d/c planning.
[2020-09-21] MEDS: Lactated Ringers 1,000 ML 100 ML IVCONT (16:03)
[2020-09-21 16:05] LABS: Procalcitonin 5.12 ng/mL
[2020-09-21] MEDS: Midodrine HCl 5 MG TABLET G-TUBE ×2 (16:12→22:05)
[2020-09-21] MEDS: Hydrocortisone Sod Succ/PF 100 MG VIAL IVPUSH ×2 (16:16→22:05)
[2020-09-21 18:51] LABS: Venous Blood Gas Refer to POC result
[2020-09-21] MEDS: Atorvastatin Calcium 10 MG TABLET G-TUBE (22:05)
--- NOTE | 2020-09-21 23:28 | PC.NURSE ---
Addendum entered by Kate Shaikh RN 09/22/20 05:57: Patient continues to have sbp in 80's while sleeping, which improves to 100's when awake/agitated. Original Note: Patient hypotensive, sbp persistently in 80's. MAP >60. MD updated, automobile body repair chief consulted. Per MD team, continue caring for patient in ICU under hospitalist service and monitor BP closely.
[2020-09-22] VITALS (10 sets, daily range): BP systolic 94–150; BP diastolic 61–88; PULSE 66–106; RESP 15–20; TEMP 36.8–37.3; O2SAT 96–100; BMI 28.1
[2020-09-22] MEDS: Lactated Ringers 1,000 ML 100 ML IVCONT (01:22)
[2020-09-22 05:40] LABS: Hematocrit 32.7 % (42-52); Hemoglobin 10.2 g/dl (14.0-18.0); Mean Corpuscular HGB Conc 31.2 g/dl (31.0-36.0); Mean Corpuscular Hemoglobin 27.5 pg (27.0-33.0); Mean Corpuscular Volume 88.1 fL (80-98); Mean Platelet Volume 9.2 fL (9.4-12.4); Platelet Count 283 X10*3/uL (160-400); Red Blood Count 3.71 X10*6/uL (4.60-5.80); Red Cell Distribution Width 14.1 % (11.0-16.0); White Blood Count 8.3 X10*3/uL (4.8-10.8)
[2020-09-22 06:07] LABS: Anion Gap 14 (12-20); Blood Urea Nitrogen 11 mg/dL (9-16); Calcium 8.6 mg/dL (8.4-10.2); Carbon Dioxide 23 mmol/L (22-29); Chloride 109 mmol/L (96-108); Estimated Glomerular Filt Rate > 60; Glucose Fasting 107 mg/dL (60-99); Potassium 4.3 mmol/L (3.3-5.1); Sodium 142 mmol/L (135-145)
[2020-09-22 06:12] LABS: Vancomycin Trough 4.8 mcg/mL (10.0-20.0)
[2020-09-22] MEDS: Hydrocortisone Sod Succ/PF 100 MG VIAL IVPUSH ×3 (07:32→22:50)
[2020-09-22] MEDS: Midodrine HCl 5 MG TABLET G-TUBE ×3 (07:33→20:26)
[2020-09-22] MEDS: Ascorbic Acid 500 MG TABLET PO (07:33)
[2020-09-22] MEDS: Zinc Sulfate 220 MG CAPSULE G-TUBE (07:33)
[2020-09-22] MEDS: Apixaban 5 MG TABLET G-TUBE ×2 (07:33→20:26)
[2020-09-22] MEDS: Aspirin 81 MG TAB.CHEW G-TUBE (07:33)
[2020-09-22] MEDS: Famotidine 20 MG TABLET 40 MG G-TUBE (07:33)
--- NOTE | 2020-09-22 09:29 | P.PNIM_ITS ---
Subjective Subjective Date of Service: 09/22/20 Interval History: unable to obtain Physical Exam Vital Signs: Vital Signs: Last Vital Signs Temp 98.3 F 09/22/20 08:00 Pulse 81 09/22/20 08:00 Resp 15 09/22/20 08:00 BP 123/64 09/22/20 08:00 Pulse Ox 98 09/22/20 08:00 Body Mass Index 28.1 General: alert, tracking, talking randomly, but not making sense Resp: crackles CVS: S1,S2,RRR GI: soft, non tender, non distended Neuro: motor grossly weak Psych: impaired insight Objective Data Current Medications Generic Name Dose Route Start Last Admin Trade Name Freq PRN Reason Stop Dose Admin Acetaminophen 650 mg 09/20/20 22:32 Acetaminophen Supp 650 Mg Supp.Rect [place] Q6H PRN Pain, Mild (Pain Scale 1-3) Apixaban 5 mg 09/21/20 09:00 09/22/20 07:33 Apixaban 5 Mg Tablet G-TUBE 5 mg BID [facility]PIT Administration Ascorbic Acid 500 mg 09/21/20 09:00 09/22/20 07:33 Ascorbic Acid 500 Mg Tablet PO 500 mg DAILY [facility] Administration Aspirin 81 mg 09/21/20 09:00 09/22/20 07:33 Aspirin 81 Mg Tab.Chew G-TUBE 81 mg DAILY@0900 [facility] Administration Atorvastatin Calcium 10 mg 09/21/20 21:00 09/21/20 22:05 Atorvastatin Calcium 10 Mg Tablet G-TUBE 10 mg BEDTIME [facility] Administration Famotidine 40 mg 09/21/20 09:00 09/22/20 07:33 Famotidine 20 Mg Tablet G-TUBE 40 mg DAILY@0900 [facility] Administration Hydrocortisone Sodium Succinate 100 mg 09/21/20 15:10 09/22/20 07:32 Hydrocortisone Sod Succ/Pf 100 Mg Vial IVPUSH 100 mg Q8H ARPIT Administration Midodrine 5 mg 09/21/20 15:00 09/22/20 07:33 Midodrine Hcl 5 Mg Tablet G-TUBE 5 mg TID [facility]PIT Administration Pharmacy Consult 1 each 09/20/20 17:15 Consult Rx Perform Med Rec MISCELLANE ONCE PRN Consult order Pharmacy Consult 1 each 09/20/20 23:33 Consult Rx Vancomycin Dosing MISCELLANE DAILY PRN Consult order Sodium Chloride 3 ml 09/21/20 00:00 09/22/20 07:34 0.9 % Sodium Chloride Flush 3 Ml Syringe IVFLUSH Not Given QSHIFT [facility] Zinc Sulfate 220 mg 09/21/20 09:00 09/22/20 07:33 Zinc Sulfate 220 Mg Capsule G-TUBE 220 mg DAILY [facility]PIT Administration Labs CBC & Chem 7: 09/22/20 05:22 09/22/20 05:22 Labs: Laboratory Results - last 24 hr 09/21/20 09/21/20 09/21/20 09:01 09:01 14:59 WBC RBC Hgb Hct MCV MCH MCHC RDW Plt Count MPV 9.1 L Immature Gran % (Auto) 0.3 Neut % (Auto) 63.3 Lymph % (Auto) 15.9 L [place] % (Auto) 19.2 H Eos % (Auto) 1.1 Baso % (Auto) 0.2 Lymph # (Auto) 1.6 Converse # (Auto) 1.9 H Eos # (Auto) 0.1 Baso # (Auto) 0.0 Abs Immat Gran (auto) 0.03 Absolute Neuts (auto) 6.4 Absolute Nucleated RBC 0.000 Nucleated RBC % (auto) 0.0 Smear Tech's Comments VERIFIED VBG pH 7.47 H VBG pCO2 31 VBG pO2 45 VBG HCO3 23 VBG O2 Saturation 69.0 VBG Base Excess 0.2 Sodium 144 Potassium 4.2 Chloride 110 H Carbon Dioxide 25 Anion Gap 13 BUN 9 Creatinine 0.66 Estim Creat Clear Calc 119.9 Estimated GFR > 60 Random Glucose 95 Fasting Glucose Lactic Acid Calcium 8.5 Phosphorus 3.9 Magnesium 2.0 Total Bilirubin 0.6 Direct Bilirubin 0.3 AST 31 ALT 15 Alkaline Phosphatase 63 D Troponin I High Sens C-Reactive Protein Total Protein 6.4 L Albumin 2.8 L Procalcitonin Ur Random Sodium Vancomycin Trough 09/21/20 09/21/20 09/21/20 15:01 15:01 15:01 WBC 7.8 RBC 3.25 L Hgb 9.0 L Hct 29.1 L MCV 89.5 MCH 27.7 MCHC 30.9 L RDW 14.6 Plt Count 224 MPV 9.1 L Immature Gran % (Auto) Neut % (Auto) Lymph % (Auto) [place]verse % (Auto) Eos % (Auto) Baso % (Auto) Lymph # (Auto) [place] # (Auto) Eos # (Auto) Baso # (Auto) Abs Immat Gran (auto) Absolute Neuts (auto) Absolute Nucleated RBC 0.000 Nucleated RBC % (auto) 0.0 Smear Tech's Comments VBG pH VBG pCO2 VBG pO2 VBG HCO3 VBG O2 Saturation VBG Base Excess Sodium 142 Potassium 4.0 Chloride 110 H Carbon Dioxide 22 Anion Gap 14 BUN 10 Creatinine 0.63 Estim Creat Clear Calc 125.6 Estimated GFR > 60 Random Glucose 78 Fasting Glucose Lactic Acid 1.6 Calcium 8.3 L Phosphorus Magnesium Total Bilirubin Direct Bilirubin AST ALT Alkaline Phosphatase Troponin I High Sens C-Reactive Protein 8.04 H Total Protein Albumin Procalcitonin Ur Random Sodium Vancomycin Trough 09/21/20 09/21/20 09/21/20 15:01 15:01 16:56 WBC RBC Hgb Hct MCV MCH MCHC RDW Plt Count MPV Immature Gran % (Auto) Neut % (Auto) Lymph % (Auto) [place] % (Auto) Eos % (Auto) Baso % (Auto) Lymph # (Auto) [place] # (Auto) Eos # (Auto) Baso # (Auto) Abs Immat Gran (auto) Absolute Neuts (auto) Absolute Nucleated RBC Nucleated RBC % (auto) Smear Tech's Comments VBG pH VBG pCO2 VBG pO2 VBG HCO3 VBG O2 Saturation VBG Base Excess Sodium Potassium Chloride Carbon Dioxide Anion Gap BUN Creatinine Estim Creat Clear Calc Estimated GFR Random Glucose Fasting Glucose Lactic Acid Calcium Phosphorus Magnesium Total Bilirubin Direct Bilirubin AST ALT Alkaline Phosphatase Troponin I High Sens 13.7 D C-Reactive Protein Total Protein Albumin Procalcitonin 5.12 Ur Random Sodium 99.0 Vancomycin Trough 09/22/20 09/22/20 09/22/20 05:22 05:22 05:22 WBC 8.3 RBC 3.71 L Hgb 10.2 L Hct 32.7 L MCV 88.1 MCH 27.5 MCHC 31.2 RDW 14.1 Plt Count 283 D MPV 9.2 L Immature Gran % (Auto) Neut % (Auto) Lymph % (Auto) [place] % (Auto) Eos % (Auto) Baso % (Auto) Lymph # (Auto) [place] # (Auto) Eos # (Auto) Baso # (Auto) Abs Immat Gran (auto) Absolute Neuts (auto) Absolute Nucleated RBC 0.000 Nucleated RBC % (auto) 0.0 Smear Tech's Comments VBG pH VBG pCO2 VBG pO2 VBG HCO3 VBG O2 Saturation VBG Base Excess Sodium 142 Potassium 4.3 Chloride 109 H Carbon Dioxide 23 Anion Gap 14 BUN 11 Creatinine 0.60 Estim Creat Clear Calc 133.0 Estimated GFR > 60 Random Glucose Fasting Glucose 107 H Lactic Acid Calcium 8.6 Phosphorus Magnesium Total Bilirubin Direct Bilirubin AST ALT Alkaline Phosphatase Troponin I High Sens C-Reactive Protein Total Protein Albumin Procalcitonin Ur Random Sodium Vancomycin Trough 4.8 L Microbiology Microbiology Results: Microbiology 09/20/20 15:34 Blood Culture - Preliminary Blood - Venous No growth after 24 hours. 09/20/20 15:34 Blood Culture - Preliminary Blood - Venous No growth after 24 hours. Quality Stroke Does the patient have a stroke diagnosis?: No VTE Prior VTE?: No VTE Risk Level:: Medical - moderate - high VTE Device Contraindication: Treatment Not Indicated VTE Drug Contraindication: N/A - Med Ordered Assessment and Plan (1) Acute respiratory failure with hypoxia: Status: Acute (2) Aspiration pneumonitis: Status: Acute (3) Severe sepsis: Status: Acute (4) Acute metabolic encephalopathy: Status: Acute Assessment and Plan: 64M sent from [place] for hypoxia acute hypoxic respiratory failure, severe sepsis present on admission due to aspiration pneumonitis complicated by metabolic encephalopathy appears to be more pneumonitis than pneumonia, dced zosyn, cultures negative so far, monitor HOB >30 BP improved, mental status better than past month. continue solucortef continue to hold antipsychotics for now left heel ulcer wound care history of afib/dvt continue elquis dyphagia gtube
--- NOTE | 2020-09-22 10:51 | MHC.CLN ---
PT IS MODERATELY MALNOURISHED PT WITH MILD DEPLETION IN SUBCUTANEOUS FAT AND MUSCLE MASS WITH POOR PO FROM PREVIOUS ADMISSION. PT WITH PEG TUBE IN PLACE RECOMMEND RE-STARTING OSMOLITE 1.5 AT MAX GOAL RATE AT 70ML/HR WITH 300ML FREE WATER FLUSHES Q SHIFT TO PROVIDE 2520KCALS (34KCALS/KG), 105G PROTEIN (1.4G/KG), 2180ML TOTAL WATER FROM FORMULA AND FLUSHES (29ML/KG) MONITOR TOLERANCE, RESIDUALS AND LYTES TF TO PROVIDE INCREASED KCALS AND PROTEIN TO PROMOTE WOUND HEALING SEE ALSO CLINICAL NUTRITION ASSESSMENT
--- NOTE | 2020-09-22 11:15 | MHC.CM.PN ---
Received notification from Dr Becker, that patient's sister/guardian, Dee may be interested in hospice care. T/W spoke with Dee via telephone at [phone]. Dee is requesting patient be moved to a facility closer to [place]. T/W tried explaining patient is a fci care resident of [facility] and their social services analyst would have to work to try to find a facilty in [place]. Dee is not happy about this and will be speaking to [facility]'s social services analyst to help coordinate this. Dee would is not agreeable to Hospice until a facility near [place] is found. Dr Becker aware. Continue to monitor for d/c needs.
--- NOTE | 2020-09-22 11:39 | MHC.CM.PN ---
Received telephone call from Kerry hospice social worker at [facility]. Per Crystal, Dee can request referrals to a facility closer to [place]. However, since he is a medical discharge from [facility], he still has a protective services officer. Before he can move to another facility, it will need to be approved by the parole board. Crystal will ask patient's protective services officer to reach out to Dee about this. Continue to monitor for d/c needs.
[2020-09-22] MEDS: 0.9 % Sodium Chloride Flush 3 ML SYRINGE IVFLUSH (17:34)
--- NOTE | 2020-09-22 17:53 | PC.NURSE ---
Assumed care of patient at 1600. 3p meds given as ordered. Patient resistive to most care r/t dementia. Occasional outbursts of profanity, upon this assessment patient was smiley, remaining rigid with BUEs. Tube feeds started via PEG as ordered followed by 300mL H2O bolus. Escalante removed this evening, DTV by midnight. Heels with dressings C/D/I also in heellboots. Coccyx with TRIAD cream. Low grade temp this evening, NSR on monitor with stable BPs. Repositionedfor pressure relief per ICU protocol.
[2020-09-22] MEDS: Atorvastatin Calcium 10 MG TABLET G-TUBE (20:26)
[2020-09-23] VITALS (8 sets, daily range): BP systolic 114–160; BP diastolic 64–93; PULSE 68–104; RESP 14–22; TEMP 36.3–37.4; O2SAT 96–100
[2020-09-23] MEDS: 0.9 % Sodium Chloride Flush 3 ML SYRINGE IVFLUSH ×3 (00:35→16:34)
[2020-09-23] MEDS: Hydrocortisone Sod Succ/PF 100 MG VIAL IVPUSH (06:03)
[2020-09-23 06:26] LABS: Hematocrit 31.8 % (42-52); Mean Corpuscular HGB Conc 31.4 g/dl (31.0-36.0); Mean Corpuscular Volume 85.7 fL (80-98); Mean Platelet Volume 9.9 fL (9.4-12.4); Platelet Count 346 X10*3/uL (160-400); Red Blood Count 3.71 X10*6/uL (4.60-5.80); White Blood Count 8.6 X10*3/uL (4.8-10.8)
[2020-09-23 07:01] LABS: Anion Gap 12 (12-20); Blood Urea Nitrogen 14 mg/dL (9-16); Calcium 8.8 mg/dL (8.4-10.2); Carbon Dioxide 24 mmol/L (22-29); Chloride 111 mmol/L (96-108); Creatinine Clr Calc Pharmacy 110.8; Estimated Glomerular Filt Rate > 60; Glucose Fasting 125 mg/dL (60-99); Potassium 3.6 mmol/L (3.3-5.1); Sodium 143 mmol/L (135-145)
[2020-09-23] MEDS: Hydrocortisone Sod Succ/PF 100 MG VIAL 25 MG IVPUSH ×2 (10:13→17:43)
[2020-09-23] MEDS: Midodrine HCl 5 MG TABLET G-TUBE ×3 (10:14→22:22)
[2020-09-23] MEDS: Famotidine 20 MG TABLET 40 MG G-TUBE (10:14)
[2020-09-23] MEDS: Apixaban 5 MG TABLET G-TUBE ×2 (10:14→22:22)
[2020-09-23] MEDS: Ascorbic Acid 500 MG TABLET PO (10:14)
[2020-09-23] MEDS: Aspirin 81 MG TAB.CHEW G-TUBE (10:14)
[2020-09-23] MEDS: Zinc Sulfate 220 MG CAPSULE G-TUBE (10:14)
--- NOTE | 2020-09-23 10:15 | MHC.CM.PN ---
Received telephone call from Crystal at [facility]. They have made referrrals to facilities in the [place] area. The 3 facilities that are following patient are: [facility], [facility] and [facility]. They may call [facility] case management looking for clinical information. If a bed is offered, patient's case would still need to go before the [place] Board before he could be transferred there. Continue to monitor for d/c needs.
--- NOTE | 2020-09-23 10:38 | HO.PM.IMPN ---
Subjective Subjective Date of Service: 09/23/20 Interval History: unable to obtain Physical Exam Vital Signs: Vital Signs: Last Vital Signs Temp 97.4 F 09/23/20 07:40 Pulse 75 09/23/20 10:14 Resp 17 09/23/20 07:40 BP 140/93 H 09/23/20 10:14 Pulse Ox 96 09/23/20 07:40 Body Mass Index 28.1 General: alert, less verbal than yesterday Resp: crackles CVS: S1,S2,RRR GI: soft, non tender, non distended Neuro: motor grossly weak Psych: impaired insight Objective Data Current Medications Generic Name Dose Route Start Last Admin Trade Name Freq PRN Reason Stop Dose Admin Acetaminophen 650 mg 09/20/20 22:32 Acetaminophen Supp 650 Mg Supp.Rect [place] Q6H PRN Pain, Mild (Pain Scale 1-3) Apixaban 5 mg 09/21/20 09:00 09/23/20 10:14 Apixaban 5 Mg Tablet G-TUBE 5 mg BID ARPIT Administration Ascorbic Acid 500 mg 09/21/20 09:00 09/23/20 10:14 Ascorbic Acid 500 Mg Tablet PO 500 mg DAILY [facility]PIT Administration Aspirin 81 mg 09/21/20 09:00 09/23/20 10:14 Aspirin 81 Mg Tab.Chew G-TUBE 81 mg DAILY@0900 [facility] Administration Atorvastatin Calcium 10 mg 09/21/20 21:00 09/22/20 20:26 Atorvastatin Calcium 10 Mg Tablet G-TUBE 10 mg BEDTIME ARPIT Administration Collagenase 1 appl 09/22/20 09:00 09/22/20 10:47 Collagenase Clostridium Hist. 30 Gm Tube TOPICAL Not Given DAILY [facility] Protocol Famotidine 40 mg 09/21/20 09:00 09/23/20 10:14 Famotidine 20 Mg Tablet G-TUBE 40 mg DAILY@0900 [facility] Administration Hydrocortisone Sodium Succinate 25 mg 09/23/20 08:54 09/23/20 10:13 Hydrocortisone Sod Succ/Pf 100 Mg Vial IVPUSH 25 mg Q8H ARPIT Administration Midodrine 5 mg 09/21/20 15:00 09/23/20 10:14 Midodrine Hcl 5 Mg Tablet G-TUBE 5 mg TID ARPIT Administration Pharmacy Consult 1 each 09/20/20 17:15 Consult Rx Perform Med Rec MISCELLANE ONCE PRN Consult order Sodium Chloride 3 ml 09/21/20 00:00 09/23/20 10:13 0.9 % Sodium Chloride Flush 3 Ml Syringe IVFLUSH 3 ml QSHIFT ARPIT Administration Zinc Sulfate 220 mg 09/21/20 09:00 09/23/20 10:14 Zinc Sulfate 220 Mg Capsule G-TUBE 220 mg DAILY [facility]PIT Administration Labs CBC & Chem 7: 09/23/20 05:25 09/23/20 05:25 Labs: Laboratory Results - last 24 hr 09/23/20 09/23/20 05:25 05:25 WBC 8.6 RBC 3.71 L Hgb 10.0 L Hct 31.8 L MCV 85.7 MCH 27.0 MCHC 31.4 RDW 14.0 Plt Count 346 MPV 9.9 Absolute Nucleated RBC 0.000 Nucleated RBC % (auto) 0.0 Sodium 143 Potassium 3.6 Chloride 111 H Carbon Dioxide 24 Anion Gap 12 BUN 14 Creatinine 0.72 Estim Creat Clear Calc 110.8 Estimated GFR > 60 Fasting Glucose 125 H Calcium 8.8 Microbiology Microbiology Results: Microbiology 09/20/20 15:34 Blood Culture - Preliminary Blood - Venous No growth after 48 hours. 09/20/20 15:34 Blood Culture - Preliminary Blood - Venous No growth after 48 hours. Quality Stroke Does the patient have a stroke diagnosis?: No VTE Prior VTE?: No VTE Risk Level:: Medical - moderate - high VTE Device Contraindication: Treatment Not Indicated VTE Drug Contraindication: N/A - Med Ordered Assessment and Plan (1) Acute respiratory failure with hypoxia: Status: Acute (2) Aspiration pneumonitis: Status: Acute (3) Severe sepsis: Status: Acute (4) Acute metabolic encephalopathy: Status: Acute Assessment and Plan: 64M sent from [place] for hypoxia acute hypoxic respiratory failure, severe sepsis present on admission due to aspiration pneumonitis complicated by metabolic encephalopathy appears to be more pneumonitis than pneumonia, off zosyn, cultures negative, monitor HOB >30 BP improved, mental status better continue solucortef - wean continue to hold antipsychotics for now will restart depakote left heel ulcer wound care history of afib/dvt continue elquis dyphagia gtube
--- NOTE | 2020-09-23 11:42 | MHC.CM.PN ---
[facility] REVIEWED, PER HOSPITALIST PT IMPROVING HOWEVER NOT READY FOR D/C, POSSIBLE D/C OVER W/E. CM RECEIVED A MESSAGE FROM [facility] THAT THEY DO NOT HAVE A BED & THERE IS A WAIT LIST, [facility] AND [facility] ARE FOLLOWING PT HOWEVER PER PREVIOUS NOTE, PT'S TRANSFER WILL NEED TO BE PRESENTED TO [employer] SO HE WILL NEED TO RETURN TO [facility] UPON D/C. PLAN IS TO RETURN TO [facility] W/BLS TRANSPORT
[2020-09-23] MEDS: Divalproex Sodium Sprinkles 125 MG CAP.DR.SPR 750 MG G-TUBE ×2 (12:30→22:22)
[2020-09-23] MEDS: Collagenase Clostridium Hist. 30 GM TUBE 1 APPL TOPICAL (12:30)
--- NOTE | 2020-09-23 13:33 | MHC.CLN ---
FOLLOW UP PATIENT TOLERATING TUBE FEEDING. CONTINUE CURRENT TUBE FEED ORDER: OSMOLITE 1.5 AT MAX GOAL RATE AT 70ML/HR WITH 300ML FREE WATER FLUSHES Q SHIFT TO PROVIDE 2520KCALS (34KCALS/KG), 105G PROTEIN (1.4G/KG), 2180ML TOTAL WATER FROM FORMULA AND FLUSHES (29ML/KG) MONITOR TOLERANCE, RESIDUALS AND LYTES
[2020-09-23] MEDS: Atorvastatin Calcium 10 MG TABLET G-TUBE (22:22)
[2020-09-24] VITALS (9 sets, daily range): BP systolic 117–171; BP diastolic 65–93; PULSE 63–67; RESP 14–20; TEMP 36.4–37.1; O2SAT 95–100; BMI 26.3
[2020-09-24] MEDS: 0.9 % Sodium Chloride Flush 3 ML SYRINGE IVFLUSH ×3 (00:27→15:59)
[2020-09-24] MEDS: Hydrocortisone Sod Succ/PF 100 MG VIAL 25 MG IVPUSH ×3 (00:28→15:59)
[2020-09-24 07:02] LABS: Hematocrit 29.4 % (42-52); Hemoglobin 9.2 g/dl (14.0-18.0); Mean Corpuscular HGB Conc 31.3 g/dl (31.0-36.0); Mean Corpuscular Hemoglobin 27.1 pg (27.0-33.0); Mean Corpuscular Volume 86.7 fL (80-98); Mean Platelet Volume 9.9 fL (9.4-12.4); NRBC Pct Auto 0.4 /100WBC (0.0-0.2); Platelet Count 314 X10*3/uL (160-400); Red Blood Count 3.39 X10*6/uL (4.60-5.80); Red Cell Distribution Width 14.3 % (11.0-16.0)
[2020-09-24 07:32] LABS: Anion Gap 12 (12-20); Blood Urea Nitrogen 14 mg/dL (9-16); Calcium 8.1 mg/dL (8.4-10.2); Carbon Dioxide 26 mmol/L (22-29); Chloride 112 mmol/L (96-108); Creatinine Clr Calc Pharmacy 117.9; Estimated Glomerular Filt Rate > 60; Glucose Fasting 130 mg/dL (60-99); Potassium 3.7 mmol/L (3.3-5.1); Sodium 146 mmol/L (135-145)
[2020-09-24] MEDS: Famotidine 20 MG TABLET 40 MG G-TUBE (09:22)
[2020-09-24] MEDS: Zinc Sulfate 220 MG CAPSULE G-TUBE (09:22)
[2020-09-24] MEDS: Ascorbic Acid 500 MG TABLET PO (09:22)
[2020-09-24] MEDS: Midodrine HCl 5 MG TABLET G-TUBE ×2 (09:22→15:59)
[2020-09-24] MEDS: Divalproex Sodium Sprinkles 125 MG CAP.DR.SPR 750 MG G-TUBE ×2 (09:23→20:54)
[2020-09-24] MEDS: Apixaban 5 MG TABLET G-TUBE ×2 (09:23→20:54)
[2020-09-24] MEDS: Aspirin 81 MG TAB.CHEW G-TUBE (09:24)
[2020-09-24] MEDS: Collagenase Clostridium Hist. 30 GM TUBE 1 APPL TOPICAL (09:24)
--- NOTE | 2020-09-24 11:07 | HO.PM.IMPN ---
Subjective Subjective Date of Service: 09/24/20 Interval History: unable to obtain Cardiovascular Cardiovascular: Reports no additional cardiovascular complaints Gastrointestinal Gastrointestinal: Reports no additional gastrointestinal complaints Physical Exam Vital Signs: Vital Signs: Last Vital Signs Temp 97.8 F 09/24/20 08:00 Pulse 67 09/24/20 09:22 Resp 20 09/24/20 08:00 BP 117/65 09/24/20 09:22 Pulse Ox 95 09/24/20 08:00 Body Mass Index 26.3 General: alert, less verbal than yesterday Resp: crackles CVS: S1,S2,RRR GI: soft, non tender, non distended Neuro: motor grossly weak Psych: impaired insight Objective Data Current Medications Generic Name Dose Route Start Last Admin Trade Name Freq PRN Reason Stop Dose Admin Acetaminophen 650 mg 09/20/20 22:32 Acetaminophen Supp 650 Mg Supp.Rect [place] Q6H PRN Pain, Mild (Pain Scale 1-3) Apixaban 5 mg 09/21/20 09:00 09/24/20 09:23 Apixaban 5 Mg Tablet G-TUBE 5 mg BID ARPIT Administration Ascorbic Acid 500 mg 09/21/20 09:00 09/24/20 09:22 Ascorbic Acid 500 Mg Tablet PO 500 mg DAILY [facility] Administration Aspirin 81 mg 09/21/20 09:00 09/24/20 09:24 Aspirin 81 Mg Tab.Chew G-TUBE 81 mg DAILY@0900 [facility] Administration Atorvastatin Calcium 10 mg 09/21/20 21:00 09/23/20 22:22 Atorvastatin Calcium 10 Mg Tablet G-TUBE 10 mg BEDTIME [facility] Administration Collagenase 1 appl 09/22/20 09:00 09/24/20 09:24 Collagenase Clostridium Hist. 30 Gm Tube TOPICAL 1 appl DAILY [facility]PIT Administration Protocol Divalproex Sodium 750 mg 09/23/20 11:15 09/24/20 09:23 Divalproex Sodium Sprinkles 125 Mg Spr G-TUBE 750 mg BID ARPIT Administration Famotidine 40 mg 09/21/20 09:00 09/24/20 09:22 Famotidine 20 Mg Tablet G-TUBE 40 mg DAILY@0900 [facility] Administration Hydrocortisone Sodium Succinate 25 mg 09/23/20 08:54 09/24/20 09:23 Hydrocortisone Sod Succ/Pf 100 Mg Vial IVPUSH 25 mg Q8H AR[facility]IT Administration Midodrine 5 mg 09/21/20 15:00 09/24/20 09:22 Midodrine Hcl 5 Mg Tablet G-TUBE 5 mg TID ARPIT Administration Pharmacy Consult 1 each 09/20/20 17:15 Consult Rx Perform Med Rec MISCELLANE ONCE PRN Consult order Sodium Chloride 3 ml 09/21/20 00:00 09/24/20 09:23 0.9 % Sodium Chloride Flush 3 Ml Syringe IVFLUSH 3 ml QSHIFT [facility]PIT Administration Zinc Sulfate 220 mg 09/21/20 09:00 09/24/20 09:22 Zinc Sulfate 220 Mg Capsule G-TUBE 220 mg DAILY [facility]PIT Administration Labs CBC & Chem 7: 09/24/20 05:49 09/24/20 05:49 Labs: Laboratory Results - last 24 hr 09/24/20 09/24/20 05:49 05:49 WBC 8.0 RBC 3.39 L Hgb 9.2 L Hct 29.4 L MCV 86.7 MCH 27.1 MCHC 31.3 RDW 14.3 Plt Count 314 MPV 9.9 Absolute Nucleated RBC 0.030 H Nucleated RBC % (auto) 0.4 H Sodium 146 H Potassium 3.7 Chloride 112 H Carbon Dioxide 26 Anion Gap 12 BUN 14 Creatinine 0.62 Estim Creat Clear Calc 117.9 Estimated GFR > 60 Fasting Glucose 130 H Calcium 8.1 L D Quality Stroke Does the patient have a stroke diagnosis?: No VTE Prior VTE?: No VTE Risk Level:: Medical - moderate - high VTE Device Contraindication: Treatment Not Indicated VTE Drug Contraindication: N/A - Med Ordered Assessment and Plan (1) Acute respiratory failure with hypoxia: Status: Acute (2) Aspiration pneumonitis: Status: Acute (3) Severe sepsis: Status: Acute (4) Acute metabolic encephalopathy: Status: Acute Assessment and Plan: 64M sent from [place] for hypoxia acute hypoxic respiratory failure, severe sepsis present on admission due to aspiration pneumonitis complicated by metabolic encephalopathy appears to be more pneumonitis than pneumonia, off zosyn, cultures negative, monitor HOB >30 BP improved, mental status back to baseline continue solucortef - wean continue to hold antipsychotics for now restarted depakote left heel ulcer wound care history of afib/dvt continue elquis dyphagia gtube
[2020-09-24] MEDS: Atorvastatin Calcium 10 MG TABLET G-TUBE (20:54)
[2020-09-25] MEDS: Hydrocortisone Sod Succ/PF 100 MG VIAL 25 MG IVPUSH ×3 (01:16→17:18)
[2020-09-25] MEDS: 0.9 % Sodium Chloride Flush 3 ML SYRINGE IVFLUSH ×3 (01:17→16:30)
[2020-09-25 04:00] VITALS: BP 127/75; PULSE 63; RESP 12; TEMP 37.1; O2SAT 100
[2020-09-25 06:00] VITALS: BMI 26.3
--- NOTE | 2020-09-25 06:06 | PC.NURSE ---
pt bp 157/75 at 2100. instructed rn to hold pm dose of midodrine.
[2020-09-25 07:03] LABS: Hematocrit 34.2 % (42-52); Hemoglobin 10.7 g/dl (14.0-18.0); Mean Corpuscular HGB Conc 31.3 g/dl (31.0-36.0); Mean Corpuscular Hemoglobin 27.4 pg (27.0-33.0); Mean Corpuscular Volume 87.5 fL (80-98); Mean Platelet Volume 10.2 fL (9.4-12.4); NRBC Pct Auto 0.6 /100WBC (0.0-0.2); Platelet Count 322 X10*3/uL (160-400); Red Blood Count 3.91 X10*6/uL (4.60-5.80); Red Cell Distribution Width 14.2 % (11.0-16.0); White Blood Count 11.3 X10*3/uL (4.8-10.8)
[2020-09-25 07:35] LABS: Anion Gap 17 (12-20); Blood Urea Nitrogen 12 mg/dL (9-16); Carbon Dioxide 21 mmol/L (22-29); Chloride 110 mmol/L (96-108); Creatinine Clr Calc Pharmacy 123.9; Estimated Glomerular Filt Rate > 60; Glucose Fasting 85 mg/dL (60-99); Potassium 4.8 mmol/L (3.3-5.1); Sodium 143 mmol/L (135-145)
[2020-09-25 08:00] VITALS: BP 142/81; PULSE 70; RESP 18; TEMP 36.9; O2SAT 99
[2020-09-25] MEDS: Apixaban 5 MG TABLET G-TUBE ×2 (09:51→22:49)
[2020-09-25] MEDS: Aspirin 81 MG TAB.CHEW G-TUBE (09:51)
[2020-09-25] MEDS: Zinc Sulfate 220 MG CAPSULE G-TUBE (09:51)
[2020-09-25] MEDS: Ascorbic Acid 500 MG TABLET PO (09:52)
[2020-09-25] MEDS: Famotidine 20 MG TABLET 40 MG G-TUBE (09:52)
[2020-09-25] MEDS: Divalproex Sodium Sprinkles 125 MG CAP.DR.SPR 750 MG G-TUBE ×2 (09:52→22:49)
[2020-09-25] MEDS: Collagenase Clostridium Hist. 30 GM TUBE 1 APPL TOPICAL (10:08)
--- NOTE | 2020-09-25 10:49 | HO.PM.IMPN ---
Subjective Subjective Date of Service: 09/25/20 Interval History: answers fine when asked how he is Physical Exam Vital Signs: Vital Signs: Last Vital Signs Temp 98.5 F 09/25/20 08:00 Pulse 70 09/25/20 08:00 Resp 18 09/25/20 08:00 BP 142/81 H 09/25/20 08:00 Pulse Ox 99 09/25/20 08:00 Body Mass Index 26.3 General: alert, less verbal than yesterday Resp: crackles CVS: S1,S2,RRR GI: soft, non tender, non distended Neuro: motor grossly weak Psych: impaired insight skin: see pics Objective Data Current Medications Generic Name Dose Route Start Last Admin Trade Name Freq PRN Reason Stop Dose Admin Acetaminophen 650 mg 09/20/20 22:32 Acetaminophen Supp 650 Mg Supp.Rect [place] Q6H PRN Pain, Mild (Pain Scale 1-3) Apixaban 5 mg 09/21/20 09:00 09/25/20 09:51 Apixaban 5 Mg Tablet G-TUBE 5 mg BID ARPIT Administration Ascorbic Acid 500 mg 09/21/20 09:00 09/25/20 09:52 Ascorbic Acid 500 Mg Tablet PO 500 mg DAILY [facility] Administration Aspirin 81 mg 09/21/20 09:00 09/25/20 09:51 Aspirin 81 Mg Tab.Chew G-TUBE 81 mg DAILY@0900 [facility] Administration Atorvastatin Calcium 10 mg 09/21/20 21:00 09/24/20 20:54 Atorvastatin Calcium 10 Mg Tablet G-TUBE 10 mg BEDTIME [facility] Administration Collagenase 1 appl 09/22/20 09:00 09/25/20 10:08 Collagenase Clostridium Hist. 30 Gm Tube TOPICAL 1 appl DAILY [facility] Administration Protocol Divalproex Sodium 750 mg 09/23/20 11:15 09/25/20 09:52 Divalproex Sodium Sprinkles 125 Mg CapSpr G-TUBE 750 mg BID ARPIT Administration Famotidine 40 mg 09/21/20 09:00 09/25/20 09:52 Famotidine 20 Mg Tablet G-TUBE 40 mg DAILY@0900 [facility] Administration Hydrocortisone Sodium Succinate 25 mg 09/23/20 08:54 09/25/20 09:52 Hydrocortisone Sod Succ/Pf 100 Mg Vial IVPUSH 25 mg Q8H [facility]IT Administration Pharmacy Consult 1 each 09/20/20 17:15 Consult Rx Perform Med Rec MISCELLANE ONCE PRN Consult order Sodium Chloride 3 ml 09/21/20 00:00 09/25/20 09:52 0.9 % Sodium Chloride Flush 3 Ml Syringe IVFLUSH 3 ml QSHIFT [facility]PIT Administration Zinc Sulfate 220 mg 09/21/20 09:00 09/25/20 09:51 Zinc Sulfate 220 Mg Capsule G-TUBE 220 mg DAILY [facility] Administration Labs CBC & Chem 7: 09/25/20 05:12 09/25/20 05:12 Labs: Laboratory Results - last 24 hr 09/25/20 09/25/20 05:12 05:12 WBC 11.3 H RBC 3.91 L Hgb 10.7 L Hct 34.2 L MCV 87.5 MCH 27.4 MCHC 31.3 RDW 14.2 Plt Count 322 MPV 10.2 Absolute Nucleated RBC 0.070 H Nucleated RBC % (auto) 0.6 H Sodium 143 Potassium 4.8 D Chloride 110 H Carbon Dioxide 21 L Anion Gap 17 BUN 12 Creatinine 0.59 Estim Creat Clear Calc 123.9 Estimated GFR > 60 Fasting Glucose 85 Calcium 8.0 L Quality Stroke Does the patient have a stroke diagnosis?: No VTE Prior VTE?: No VTE Risk Level:: Medical - moderate - high VTE Device Contraindication: Treatment Not Indicated VTE Drug Contraindication: N/A - Med Ordered Assessment and Plan (1) Acute respiratory failure with hypoxia: Status: Acute (2) Aspiration pneumonitis: Status: Resolved (3) Severe sepsis: Status: Resolved (4) Acute metabolic encephalopathy: Status: Resolved Assessment and Plan: 64M sent from [place] for hypoxia acute hypoxic respiratory failure, severe sepsis present on admission due to aspiration pneumonitis complicated by metabolic encephalopathy appears to be more pneumonitis than pneumonia, off zosyn, cultures negative, monitor HOB >30 BP improved, mental status back to baseline continue to wean solucortef dc midodrine continue to hold antipsychotics for now restarted depakote left heel ulcer wound care history of afib/dvt continue elquis dyphagia gtube
[2020-09-25 12:00] VITALS: BP 115/77; PULSE 71; RESP 18; TEMP 37.1; O2SAT 98
[2020-09-25 15:25] VITALS: BP 164/95; PULSE 68; RESP 18; TEMP 36.2; O2SAT 100
[2020-09-25 19:23] VITALS: BP 192/93; PULSE 65; RESP 18; TEMP 36.8; O2SAT 99
[2020-09-25] MEDS: Atorvastatin Calcium 10 MG TABLET G-TUBE (22:49)
[2020-09-25 23:04] VITALS: BP 157/84; PULSE 71; RESP 18; TEMP 37.8; O2SAT 94
[2020-09-26 03:36] VITALS: BP 138/73; PULSE 66; RESP 20; TEMP 37.2; O2SAT 99
[2020-09-26 05:55] VITALS: BMI 26.2
[2020-09-26 07:19] VITALS: BP 106/63; PULSE 73; RESP 20; TEMP 35.7; O2SAT 97
[2020-09-26 07:58] LABS: Hematocrit 31.4 % (42-52); Hemoglobin 9.9 g/dl (14.0-18.0); Mean Corpuscular HGB Conc 31.5 g/dl (31.0-36.0); Mean Corpuscular Hemoglobin 27.7 pg (27.0-33.0); Mean Platelet Volume 9.2 fL (9.4-12.4); Platelet Count 269 X10*3/uL (160-400); Red Blood Count 3.57 X10*6/uL (4.60-5.80); Red Cell Distribution Width 14.4 % (11.0-16.0); White Blood Count 8.5 X10*3/uL (4.8-10.8)
[2020-09-26 08:00] LABS: NRBC Pct Auto 1.1 /100WBC (0.0-0.2)
[2020-09-26 08:23] LABS: Anion Gap 11 (12-20); Blood Urea Nitrogen 10 mg/dL (9-16); Calcium 8.5 mg/dL (8.4-10.2); Carbon Dioxide 28 mmol/L (22-29); Chloride 109 mmol/L (96-108); Creatinine Clr Calc Pharmacy 117.9; Estimated Glomerular Filt Rate > 60; Glucose Fasting 105 mg/dL (60-99); Potassium 3.8 mmol/L (3.3-5.1); Sodium 144 mmol/L (135-145)
[2020-09-26] MEDS: Zinc Sulfate 220 MG CAPSULE G-TUBE (10:46)
[2020-09-26] MEDS: 0.9 % Sodium Chloride Flush 3 ML SYRINGE IVFLUSH ×2 (10:46→15:46)
[2020-09-26] MEDS: Hydrocortisone Sod Succ/PF 100 MG VIAL 25 MG IVPUSH ×2 (10:46→15:46)
[2020-09-26] MEDS: Divalproex Sodium Sprinkles 125 MG CAP.DR.SPR 750 MG G-TUBE (10:47)
[2020-09-26] MEDS: Famotidine 20 MG TABLET 40 MG G-TUBE (10:48)
[2020-09-26] MEDS: Ascorbic Acid 500 MG TABLET PO (10:48)
[2020-09-26] MEDS: Apixaban 5 MG TABLET G-TUBE (10:48)
[2020-09-26] MEDS: Collagenase Clostridium Hist. 30 GM TUBE 1 APPL TOPICAL (10:48)
[2020-09-26] MEDS: Aspirin 81 MG TAB.CHEW G-TUBE (10:48)
[2020-09-26 11:33] VITALS: BP 109/64; PULSE 66; RESP 18; TEMP 35.9; O2SAT 99
--- NOTE | 2020-09-26 13:03 | HO.PM.IMPN ---
Subjective Subjective Date of Service: 09/26/20 Interval History: not talking today Physical Exam Vital Signs: Vital Signs: Last Vital Signs Temp 96.6 F L 09/26/20 11:33 Pulse 66 09/26/20 11:33 Resp 18 09/26/20 11:33 BP 109/64 09/26/20 11:33 Pulse Ox 99 09/26/20 11:33 Body Mass Index 26.2 General: waxing and waning level of alertness, not talking today Resp: crackles CVS: S1,S2,RRR GI: soft, non tender, non distended Neuro: motor grossly weak Psych: impaired insight skin: see pics Objective Data Current Medications Generic Name Dose Route Start Last Admin Trade Name Freq PRN Reason Stop Dose Admin Acetaminophen 650 mg 09/20/20 22:32 Acetaminophen Supp 650 Mg Supp.Rect DC Q6H PRN Pain, Mild (Pain Scale 1-3) Apixaban 5 mg 09/21/20 09:00 09/26/20 10:48 Apixaban 5 Mg Tablet G-TUBE 5 mg BID ARPIT Administration Ascorbic Acid 500 mg 09/21/20 09:00 09/26/20 10:48 Ascorbic Acid 500 Mg Tablet PO 500 mg DAILY ARPIT Administration Aspirin 81 mg 09/21/20 09:00 09/26/20 10:48 Aspirin 81 Mg Tab.Chew G-TUBE 81 mg DAILY@0900 ARPIT Administration Atorvastatin Calcium 10 mg 09/21/20 21:00 09/25/20 22:49 Atorvastatin Calcium 10 Mg Tablet G-TUBE 10 mg BEDTIME ARPIT Administration Collagenase 1 appl 09/22/20 09:00 09/26/20 10:48 Collagenase Clostridium Hist. 30 Gm Tube TOPICAL 1 appl DAILY ARPIT Administration Protocol Divalproex Sodium 750 mg 09/23/20 11:15 09/26/20 10:47 Divalproex Sodium Sprinkles 125 Mg CapSpr G-TUBE 750 mg BID ARPIT Administration Famotidine 40 mg 09/21/20 09:00 09/26/20 10:48 Famotidine 20 Mg Tablet G-TUBE 40 mg DAILY@0900 ARPIT Administration Hydrocortisone Sodium Succinate 25 mg 09/23/20 08:54 09/26/20 10:46 Hydrocortisone Sod Succ/Pf 100 Mg Vial IVPUSH 25 mg Q8H ARPIT Administration Pharmacy Consult 1 each 09/20/20 17:15 Consult Rx Perform Med Rec MISCELLANE ONCE PRN Consult order Sodium Chloride 3 ml 09/21/20 00:00 09/26/20 10:46 0.9 % Sodium Chloride Flush 3 Ml Syringe IVFLUSH 3 ml QSHIFT ARPIT Administration Zinc Sulfate 220 mg 09/21/20 09:00 09/26/20 10:46 Zinc Sulfate 220 Mg Capsule G-TUBE 220 mg DAILY ARPIT Administration Labs CBC & Chem 7: 09/26/20 07:41 09/26/20 07:41 Labs: Laboratory Results - last 24 hr 09/26/20 09/26/20 07:41 07:41 WBC 8.5 RBC 3.57 L Hgb 9.9 L Hct 31.4 L MCV 88.0 MCH 27.7 MCHC 31.5 RDW 14.4 Plt Count 269 MPV 9.2 L Absolute Nucleated RBC 0.090 H Nucleated RBC % (auto) 1.1 H Smear Path Review SEE NOTE Sodium 144 Potassium 3.8 D Chloride 109 H Carbon Dioxide 28 Anion Gap 11 L BUN 10 Creatinine 0.62 Estim Creat Clear Calc 117.9 Estimated GFR > 60 Fasting Glucose 105 H Calcium 8.5 D Microbiology Microbiology Results: Microbiology 09/20/20 15:34 Blood Culture - Final Blood - Venous No growth after 5 days. 09/20/20 15:34 Blood Culture - Final Blood - Venous No growth after 5 days. Assessment and Plan (1) Acute respiratory failure with hypoxia: Status: Acute (2) Aspiration pneumonitis: Status: Resolved (3) Severe sepsis: Status: Resolved (4) Acute metabolic encephalopathy: Status: Resolved Assessment and Plan: 64M sent from ID for hypoxia acute hypoxic respiratory failure, severe sepsis present on admission due to aspiration pneumonitis complicated by metabolic encephalopathy appears to be more pneumonitis than pneumonia, off zosyn, cultures negative, monitor HOB >30 BP improved, mental status back to baseline continue to wean solucortef dced midodrine continue to hold antipsychotics for now restarted depakote heel ulcers wound care history of afib/dvt continue elquis dyphagia gtube Quality Stroke Does the patient have a stroke diagnosis?: No VTE Prior VTE?: No VTE Risk Level:: Medical - moderate - high VTE Device Contraindication: Treatment Not Indicated VTE Drug Contraindication: N/A - Med Ordered
--- NOTE | 2020-09-26 13:08 | MHC.CM.PN ---
Pt is discharged to home no services Patient has arranged transportation.
--- NOTE | 2020-09-26 13:47 | MHC.CLN ---
F/U PATIENT TOLERATING TUBE FEEDING CONTINUE CURRENT TUBE FEED ORDER: OSMOLITE 1.5 AT MAX GOAL RATE AT 70ML/HR WITH 300ML FREE WATER FLUSHES Q SHIFT TO PROVIDE 2520KCALS (34KCALS/KG), 105G PROTEIN (1.4G/KG), 2180ML TOTAL WATER FROM FORMULA AND FLUSHES (29ML/KG) TF WILL PROMOTE WOUND HEALING MONITOR TOLERANCE, RESIDUALS AND LYTES
--- NOTE | 2020-09-26 14:02 | MHC.CM.PN ---
Male 64 DX Sepsis PNA heel ulcer. Plan is to discharge today. Pt is accepted to return to [facility]. His Sister, Lana has been notified. She does not agree to discharge @ [facility]. T/W along with time broker called a second time to explain why the Pt needs to return to SNF level of care. She requested a return call @ 3pm. She is waiting for a return call from an Class B Truck Driver.
--- NOTE | 2020-09-26 14:38 | MHC.CM.PN ---
@1400 this financial writer received call from pt's guardian, she has spoke with her Roll Scale Worker and has now agreed that patient can return to [facility].
[2020-09-26 14:57] VITALS: BP 110/73; PULSE 80; RESP 20; TEMP 36.7; O2SAT 99
--- NOTE | 2020-09-26 15:01 | MHC.CM.PN ---
Discharge today to [facility]. tank house operator, Rima Campuzano has spoken with Pts sister and she is in agreement with dc to [facility]. Pt will have a rapid covid and transport via BLS.
--- NOTE | 2020-09-26 15:15 | PM.DS ---
DS: Providers Provider Date of Service: 09/26/20 Date of admission: 09/20/20 22:31 Primary care physician: Smita Modi MD Consults: 09/21/20 09:49 Consult to Wound Care Routine Consulting Provider: Brandi Schwartz Reason for consultation: pressure wound DS: Diagnosis Discharge Diagnosis (1) Acute respiratory failure with hypoxia: Status: Acute (2) Aspiration pneumonitis: Status: Resolved (3) Severe sepsis: Status: Resolved (4) Acute metabolic encephalopathy: Status: Resolved DS: Medications Discharge Medications Home Medications: Home Medications Medication Instructions Recorded Confirmed ascorbic acid (vitamin C) [Vitamin 500 mg PO DAILY 09/20/20 09/20/20 C] ergocalciferol (vitamin D2) 1.25 mcg FEEDING TUBE Q28D 09/20/20 09/20/20 [Vitamin D2] zinc 50 mg DAILY 09/20/20 09/20/20 Previous Rx's Medication Instructions Recorded Eliquis 5 mg FEEDING TUBE BID 30 Days #60 09/17/20 tab aspirin 81 mg FEEDING TUBE DAILY@0900 #0 09/17/20 tab famotidine 40 mg FEEDING TUBE DAILY@0900 #0 09/17/20 tab simvastatin 20 mg FEEDING TUBE BEDTIME #0 tab 09/17/20 valproic acid (as sodium salt) 750 mg FEEDING TUBE BID 30 Days 09/17/20 #900 ml collagenase clostridium histo. 1 appl TOPICAL DAILY PRN #90 g 09/26/20 [Santyl] hydrocortisone 10 mg PO TID #30 cap 09/26/20 DS: Summary Hospital Course Hospital Course: patient was admitted for acute hypoxic respiratory failure, metabolic encephalopathy, and hypotension due to aspiration pneumonitis and presumed adrenal insufficiency. he was also noted to have multiple pressure wounds on admisison, stage III left heel, stage II right heel, and stage II coccyx. he was initially given antibiotics, but this was discontinued as hypoxia resolved very quickly which was more in line with pneumonitis as opposed to pneumonia. he had no further fevers or hypoxic episodes, cultures were negative. he was given solucortef and blood pressure improved. this will be weaned over a week as prescribed. his zyprexa and antihypertensives were discontinued. his mental status and blood pressure improved significantly, now back at baseline. patient was also evaluated for pressure wounds by wound care, cT was negative for deep infection. instructions are Triad to Stage2 on coccyx and Santyl to Stage 3 on left heel and Stage 2on right heel, cover with gauze and roll gauze. patient will be discharged back to SNF. Time Spent with Patient Time attestation: Total time spent providing and/or coordinating discharge services: Discharge coordination time: Greater than 30 minutes Quality: Stroke Does the patient have a stroke diagnosis?: No Physical Exam Vital Signs: Vital Signs: Last Vital Signs Temp 98.1 F 09/26/20 14:57 Pulse 80 09/26/20 14:57 Resp 20 09/26/20 14:57 BP 110/73 09/26/20 14:57 Pulse Ox 99 09/26/20 14:57 Body Mass Index 26.2 General: waxing and waning level of alertness, occasionally talks one to two words, doesnt really converse Resp: crackles CVS: S1,S2,RRR GI: soft, non tender, non distended Neuro: motor grossly weak Psych: impaired insight skin: see pics DS: Data Data Completed and Pending Labs on day of discharge: Laboratory Results - last 24 hr 09/26/20 09/26/20 07:41 07:41 WBC 8.5 RBC 3.57 L Hgb 9.9 L Hct 31.4 L MCV 88.0 MCH 27.7 MCHC 31.5 RDW 14.4 Plt Count 269 MPV 9.2 L Absolute Nucleated RBC 0.090 H Nucleated RBC % (auto) 1.1 H Smear Path Review SEE NOTE Sodium 144 Potassium 3.8 D Chloride 109 H Carbon Dioxide 28 Anion Gap 11 L BUN 10 Creatinine 0.62 Estim Creat Clear Calc 117.9 Estimated GFR > 60 Fasting Glucose 105 H Calcium 8.5 D Discharge Plan Discharge Patient Disposition: Xfer SNF Discharge Diagnosis: aspiration pneumonitis Referrals: Smita Modi MD [Primary Care Provider] - 1 Week Discharge Medications: New hydrocortisone 5 mg capsule, sprinkle 10 mg PO TID Qty: 30 RF: 0 Santyl 250 unit/gram ointment 1 appl topical DAILY PRN (Reason: pressure wound) Qty: 90 RF: 0 Continued valproic acid (as sodium salt) 250 mg/5 mL solution 750 mg feeding tube BID 30 Days Qty: 900 RF: 0 Eliquis 5 mg tablet 5 mg feeding tube BID 30 Days Qty: 60 RF: 0 famotidine 40 mg Tablet 40 mg feeding tube DAILY@0900 Qty: 0 RF: 0 simvastatin 20 mg Tablet 20 mg feeding tube BEDTIME Qty: 0 RF: 0 aspirin 81 mg Tablet,Chewable 81 mg feeding tube DAILY@0900 Qty: 0 RF: 0 ergocalciferol (vitamin D2) [Vitamin D2] 1,250 mcg (50,000 unit) Capsule 1.25 mcg feeding tube Q28D RF: 0 zinc 50 mg Capsule 50 mg DAILY RF: 0 ascorbic acid (vitamin C) [Vitamin C] 500 mg Tablet 500 mg PO DAILY RF: 0 Discontinued olanzapine [Zyprexa] 10 mg Recon Soln 10 mg IM BEDTIME PRN (Reason: if pt refuses bedtime zyprexa) RF: 0 olanzapine 5 mg Tablet 5 mg feeding tube DAILY Qty: 0 RF: 0 olanzapine 10 mg Tablet 10 mg feeding tube BEDTIME Qty: 0 RF: 0 amlodipine 2.5 mg Tablet 2.5 mg feeding tube DAILY@0900 Qty: 0 RF: 0 trazodone 100 mg Tablet 100 mg feeding tube BEDTIME Qty: 0 RF: 0 lisinopril 40 mg Tablet 40 mg feeding tube DAILY Qty: 0 RF: 0 escitalopram oxalate 20 mg Tablet 20 mg feeding tube BEDTIME Qty: 0 RF: 0 Discharge Orders: Discharge Order (Routine); Ordered 09/26/20 Ordered By: Bladimir Oneil Diet: other Activity on Discharge: As tolerated Stand Alone Forms: Patient Portal Discharge page Care Plan Goals: avoid hospitalizations Health Concerns: aspiratoin pneumonitis, pressure wounds Plan of Treatment: always have head elevated especially while getting feeds, while this does not 100% prevent aspiration events which will be inevitable at this point, it should reduce the likelihood of occuring. wound care: Triad to Stage 2 on coccyx and Santyl to Stage 3 on left heel and Stage 2 on right heel, cover with gauze and roll gauze. Assessment: see above
[2020-09-26 16:21] LABS: COVID-19 Test Negative (Negative); IDNOW Serial# 9DD0AD1C
== END 2020-09-26 16:53 | disposition skilled nursing facility (03) | DRG 871 ==
LOC: HO.ED 16:37 → HO.EDOVER 22:47 → HO.ICU 09-21 11:31 → HO.IMC 09-22 18:59
PROVIDERS: Anesthesiology; Admitting Provider Hospitalist; Emergency Provider Emergency Medicine; PCP Internal Medicine; Visit Provider Internal Medicine
DX: A41.9 Sepsis, unspecified organism (principal); L89.623 Pressure ulcer of left heel, stage 3; J69.0 Pneumonitis due to inhalation of food and vomit; J96.01 Acute respiratory failure with hypoxia; G93.41 Metabolic encephalopathy; L03.116 Cellulitis of left lower limb; E27.40 Unspecified adrenocortical insufficiency; F31.9 Bipolar disorder, unspecified; R13.10 Dysphagia, unspecified; R65.20 Severe sepsis without septic shock; F03.90 Unspecified dementia, unspecified severity, without behavioral disturbance, psychotic disturbance, mood disturbance, and anxiety; I95.9 Hypotension, unspecified; I48.91 Unspecified atrial fibrillation; Z86.718 Personal history of other venous thrombosis and embolism; Z93.1 Gastrostomy status; Z20.822 Contact with and (suspected) exposure to COVID-19; L89.612 Pressure ulcer of right heel, stage 2; L89.152 Pressure ulcer of sacral region, stage 2; Z88.6 Allergy status to analgesic agent; Z79.01 Long term (current) use of anticoagulants; Z79.82 Long term (current) use of aspirin; Z79.899 Other long term (current) drug therapy
CPT/HCPCS: 0241U; 36415; 70450; 71045; 71275; 73700; 74177; 80048; 80076; 80202; 81001; 82550; 82803; 83605; 83735; 83880; 84100; 84145; 84300; 84484; 85025; 85027; 85610; 86140; 87040; 87635; 93005; 94660; 99285; J0153; J2543; J3370; P9047; Q9967

== ENCOUNTER 2020-10-16 15:36 | Emergency (ER) | payer OTHER, MEDICAID, SELFPAY ==
--- NOTE | ~2020-10-16 | XR_ITS ---
EXAMINATION: XR ABDOMEN KUB CLINICAL INDICATION: NG tube placement. COMPARISON: CT abdomen/pelvis dated 09/20/2020. TECHNIQUE: AP view of the abdomen. FINDINGS: Gastrostomy tube in the left upper quadrant. Contrast is administered which is noted within the gastric fundus. No extraluminal extravasation of contrast. Moderate stool throughout the colon. Nonobstructive bowel gas pattern. No abnormal soft tissue calcification. No acute osseous abnormality. XR/XR KUB IMPRESSION: Left upper quadrant gastrostomy tube with contrast in the gastric fundus. No extraluminal extravasation of contrast to suggest leak. Moderate stool burden.
--- NOTE | 2020-10-16 15:44 | PC.NURSE ---
called in waiting room no answer
[2020-10-16 15:59] VITALS: BP 119/81; PULSE 84; RESP 18; TEMP 36.7; BMI 31.0
--- NOTE | 2020-10-16 16:00 | PC.NURSE ---
pt alert non-verbal. Arrived to ed via ambulance from [facility]. Per ems pt pulled out g-tube while staff was providing incontinent care. The g-tube that was pulled out was brought to the ed and is a 20F with a 10cc balloon. G-tube site beefy red, with minimal amount of sero-sanguineous drainage. Pt does not appear to be in pain at this time. Dr. Caruso at bedside.
--- NOTE | 2020-10-16 16:15 | ED_ITS ---
HPI - General Adult General Stated complaint: feeding tube out Time Seen by Provider: 10/16/20 16:00 Source: EMS Mode of arrival: EMS Limitations: altered mental status History of Present Illness HPI narrative: PEG tube fell out unknown when soft internal phalange noted, believed to have pulled it out. nelly in 20Fr tube complaint: PEG tube fell out Onset (ago): unknown Location: abdomen Radiation: non-radiation Severity: mild Relieving factors: none Exacerbating factors: none Associated symptoms: denies other symptoms Treatments prior to arrival: none Related Data Home Medications Medication Instructions Recorded Confirmed ascorbic acid (vitamin C) 500 mg 500 mg PO DAILY 09/20/20 09/20/20 tablet (Vitamin C) ergocalciferol (vitamin D2) 1,250 1.25 mcg FEEDING TUBE Q28D 09/20/20 09/20/20 mcg (50,000 unit) capsule (Vitamin D2) zinc 50 mg capsule 50 mg DAILY 09/20/20 09/20/20 Previous Rx's Medication Instructions Recorded apixaban 5 mg tablet (Eliquis) 5 mg FEEDING TUBE BID 30 Days #60 09/17/20 tab aspirin 81 mg chewable tablet 81 mg FEEDING TUBE DAILY@0900 #0 09/17/20 tab famotidine 40 mg tablet 40 mg FEEDING TUBE DAILY@0900 #0 09/17/20 tab simvastatin 20 mg tablet 20 mg FEEDING TUBE BEDTIME #0 tab 09/17/20 valproic acid (as sodium salt) 250 750 mg FEEDING TUBE BID 30 Days 09/17/20 mg/5 mL oral solution #900 ml collagenase clostridium histo. 250 1 appl TOPICAL DAILY PRN #90 g 09/26/20 unit/gram topical ointment (Santyl) hydrocortisone 5 mg sprinkle 10 mg PO TID #30 cap 09/26/20 capsule Allergies Allergy/AdvReac Type Severity Reaction Status Date / Time atenolol Allergy Unknown Verified 08/04/20 13:37 duloxetine [From Cymbalta] Allergy Unknown Verified 08/04/20 13:37 ibuprofen Allergy Unknown Verified 08/04/20 13:37 levofloxacin [From Levaquin] Allergy Unknown Verified 08/04/20 13:37 Review of Systems Review of Systems: ROS unable to be obtained due to altered mental status PMFSH Past Medical History Attestation statement: The following information was validated with the patient. Medical History Advanced dementia Afib Alzheimer disease Deep vein thrombosis (DVT) Dysphagia G tube feedings Glaucoma HTN (hypertension) Mood disorder Social History Social History Household Members: Other Housing: [facility] Do you presently have visiting nurse or other home services: No Unable to assess alcohol history related to: Unable to respond Alcohol intake: unknown Patient Tobacco Use Status: Tobacco use Unknown Advance Directives: Yes Advance Directives on File: Yes Advance Directives Date on File: 08/05/20 service: No (UNKLNOWN) Current occupational status: retired Physical Exam Vital Signs: Appearance: Alert. nonverbal No acute distress. Eyes: Pupils equal, round and reactive to light. ENT: Pharynx normal. Neck: Normal inspection. Neck supple. CVS: irregular heart rate and rhythm. Pulses normal. Respiratory: No respiratory distress. Breath sounds normal. Abdomen: Soft and nontender. non bleeding g tube site noted Skin: Skin warm and dry. Normal skin color. Normal skin turgor. Extremities: No lower extremity edema. No calf ttp Neuro: Does not participate in exam, tracks with eyes, nonverbal. Course Course Course Narrative: KUB confirmed placement Procedures Feeding Tube Replacement Type of Tube: gastrostomy Insertion Site Prior to Procedure: erythematous, excoriated and swollen Tube Used for Reinsertion: other Welsh Tube Size (F): 18 Balloon size (mL): 7 Verification of Placement: KUB and gastrografin injection Tube Secured by: tape/dressing and attachment device Patient Tolerated Procedure: well and no complications Medical Decision Making [facility] Narrative Medical decision making narrative: 64 yo male with hx of resp failure, DVT on eliquis, afib, dementia, HTN, G tube dependent comes in with nonbleeding g tube site after being pulled at facility, unsure when this occurred, there is an internal soft phalange of the g tube, will attempt to replace and check position Discharge Plan Discharge Clinical Impression: Complaint associated with gastric tube Patient Disposition: Home, Self-Care Instructions: PEG Tube Insertion (DC) Additional Instructions: return to ED for any worsening symptoms or concerns replaced with 18Fr tube, monitor for signs of bleeding Prescriptions: No Action valproic acid (as sodium salt) 250 mg/5 mL solution 750 mg feeding tube BID 30 Days Qty: 900 RF: 0 Eliquis 5 mg tablet 5 mg feeding tube BID 30 Days Qty: 60 RF: 0 famotidine 40 mg Tablet 40 mg feeding tube DAILY@0900 Qty: 0 RF: 0 simvastatin 20 mg Tablet 20 mg feeding tube BEDTIME Qty: 0 RF: 0 aspirin 81 mg Tablet,Chewable 81 mg feeding tube DAILY@0900 Qty: 0 RF: 0 ergocalciferol (vitamin D2) [Vitamin D2] 1,250 mcg (50,000 unit) Capsule 1.25 mcg feeding tube Q28D RF: 0 zinc 50 mg Capsule 50 mg DAILY RF: 0 ascorbic acid (vitamin C) [Vitamin C] 500 mg Tablet 500 mg PO DAILY RF: 0 hydrocortisone 5 mg capsule, sprinkle 10 mg PO TID Qty: 30 RF: 0 Santyl 250 unit/gram ointment 1 appl topical DAILY PRN (Reason: pressure wound) Qty: 90 RF: 0
--- NOTE | 2020-10-16 17:14 | PC.NURSE ---
19f with a 10cc balloon placed by Dr. Caruso. Pt tolerated well. This job specification writer gave report to SACHIN Mukherjee at [facility]. Pt awaiting ambulance to be transported back.
== END 2020-10-16 17:27 | disposition home or self-care (01) ==
PROVIDERS: Emergency Provider Emergency Medicine; PCP Internal Medicine
DX: K94.23 Gastrostomy malfunction (principal); F03.90 Unspecified dementia, unspecified severity, without behavioral disturbance, psychotic disturbance, mood disturbance, and anxiety; Z86.718 Personal history of other venous thrombosis and embolism; Z79.01 Long term (current) use of anticoagulants; Z79.899 Other long term (current) drug therapy
CPT/HCPCS: 43762; 74018; 99283

== ENCOUNTER 2021-02-07 07:32 | Inpatient (IN) | payer OTHER, MEDICAID, SELFPAY ==
--- NOTE | 2021-02-07 07:40 | ED_ITS ---
HPI - General Adult General Chief complaint: General Medical Stated complaint: G-TUBE FELL OUT PER SNF Time Seen by Provider: 02/07/21 07:40 Source: EMS and old records reviewed Mode of arrival: EMS Limitations: altered mental status History of Present Illness MD complaint: g tube fell out Onset (ago): unknown Location: abdomen Radiation: non-radiation Severity: mild Relieving factors: none Exacerbating factors: none Associated symptoms: denies other symptoms Treatments prior to arrival: other (staff attempted to replace it and felt resistance) Related Data Home Medications Medication Instructions Recorded Confirmed ergocalciferol (vitamin D2) 1,250 1.25 mcg FEEDING TUBE Q28D 09/20/20 02/07/21 mcg (50,000 unit) capsule (Vitamin D2) acetaminophen 325 mg tablet 325 mg FEEDING TUBE QID PRN 02/07/21 02/07/21 atropine 1 % eye drops 2 drp SUBLINGUAL Q2H PRN 02/07/21 02/07/21 calcium alginate 4 X 4 bandage 02/07/21 02/07/21 ivermectin 3 mg tablet 18 mg PO Q14D 02/07/21 02/07/21 menthol 0.44 %-zinc oxide 20.6 % 1 appl TOPICAL QID PRN 02/07/21 02/07/21 topical ointment (Risamine) nutritional supplements 0.06 84 ea FEEDING TUBE QSHIFT 02/07/21 02/07/21 gram-1.2 kcal/mL oral liquid (Osmolite 1.2 Cristobal) Previous Rx's Medication Instructions Recorded apixaban 5 mg tablet (Eliquis) 5 mg FEEDING TUBE BID 30 Days #60 09/17/20 tab aspirin 81 mg chewable tablet 81 mg FEEDING TUBE DAILY@0900 #0 09/17/20 tab famotidine 40 mg tablet 40 mg FEEDING TUBE DAILY@0900 #0 09/17/20 tab simvastatin 20 mg tablet 20 mg FEEDING TUBE BEDTIME #0 tab 09/17/20 valproic acid (as sodium salt) 250 750 mg (15 mL) FEEDING TUBE BID 30 09/17/20 mg/5 mL oral solution Days #900 ml hydrocortisone 5 mg sprinkle 10 mg PO TID #30 cap 09/26/20 capsule Allergies Allergy/AdvReac Type Severity Reaction Status Date / Time atenolol Allergy Unknown Verified 08/04/20 13:37 duloxetine [From Cymbalta] Allergy Unknown Verified 08/04/20 13:37 ibuprofen Allergy Unknown Verified 08/04/20 13:37 levofloxacin [From Levaquin] Allergy Unknown Verified 08/04/20 13:37 Review of Systems Review of Systems: ROS unable to be obtained due to cognitive impairment [facility] Past Medical History Attestation statement: The following information was validated with the patient. Medical History Advanced dementia Afib Alzheimer disease Deep vein thrombosis (DVT) Dysphagia G tube feedings Glaucoma HTN (hypertension) Mood disorder Social History Social History Household Members: Other Housing: [facility]dc Do you presently have visiting nurse or other home services: No Unable to assess alcohol history related to: Unable to respond Alcohol intake: unknown Patient Tobacco Use Status: Tobacco use Unknown Advance Directives: Yes Advance Directives Information Provided: Yes Advance Directives on File: No Advance Directives Date on File: 08/05/20 service: No (UNKLNOWN) Current occupational status: retired Physical Exam Vital Signs: Vital Signs: Last Vital Signs Temp 97.4 F 02/07/21 10:38 Pulse 69 02/07/21 10:38 Resp 16 02/07/21 10:38 BP 157/84 H 02/07/21 10:38 Pulse Ox 98 02/07/21 10:38 BMI result Body Mass Index 28.5 Appearance: Alert. nonverbal. No acute distress. Eyes: Pupils equal, round and reactive to light. ENT: Pharynx normal. Neck: Normal inspection. Neck supple. CVS: Normal heart rate and rhythm. Pulses normal. Respiratory: No respiratory distress. Breath sounds normal. Abdomen: Soft and no grimace noted - track appears swollen no bleeding noted no external infection Skin: Skin warm and dry. Normal skin color. Extremities: No lower extremity edema. Neuro: tracks with eyes, nonverbal Course Course Course Narrative: message sent to Dr. Leach - [id number] unable to place at this time. Will need admission to hospital for placement of G tube - plans for Dr. Scherer to place tube he will speak to him directly + COVID normal O2 sat Medical Decision Making MDM Narrative Medical decision making narrative: 65 yo male with hx of resp failure, cognitive impairment, afib/dvt on eliquis, g tube dependent here with feeding tube dislodged and attempts at replacement at SNF - at this time will attempt to replace it at bedside Lab Data Result diagrams: 02/07/21 11:01 02/07/21 11:01 Labs: Lab Results 02/07/21 02/07/21 02/07/21 Range/Units 08:51 08:51 11:01 WBC 7.6 (4.8-10.8) X10*3/uL RBC 5.92 H (4.60-5.80) X10*6/uL Hgb 16.5 (14.0-18.0) g/dl Hct 52.0 (42.0-52.0) % MCV 87.8 (80.0-98.0) fL MCH 27.9 (27.0-33.0) pg MCHC 31.7 (31.0-36.0) g/dl RDW 14.9 (11.0-16.0) % Plt Count 176 (160-400) X10*3/uL MPV 11.2 (9.4-12.4) fL Immature Gran % (Auto) 0.3 (0.0-0.4) % Neut % (Auto) 70.9 (45-73) % Lymph % (Auto) 20.5 (20-40) % [place] % (Auto) 6.6 (2-11) % Eos % (Auto) 1.4 (0-4) % Baso % (Auto) 0.3 (0-2) % Lymph # (Auto) 1.6 (1.2-4.9) X10*3/uL [place] # (Auto) 0.5 (0.1-1.2) X10*3/uL Eos # (Auto) 0.1 (0.0-0.4) X10*3/uL Baso # (Auto) 0.0 (0.0-0.2) X10*3/uL Abs Immat Gran (auto) 0.02 (0.00-0.03) X10*3/uL Absolute Neuts (auto) 5.4 (2.0-8.3) x10*3/uL Absolute Nucleated RBC 0.000 (0.0-0.012) X10*3/uL Nucleated RBC % (auto) 0.0 (0.0-0.2) /100WBC PT 15.1 H (9.9-13.0) SEC INR 1.3 H (0.9-1.1) APTT 39.9 H (24.1-38.0) SEC Sodium (135-145) mmol/L Potassium (3.3-5.1) mmol/L Chloride (96-108) mmol/L Carbon Dioxide (22-29) mmol/L Anion Gap (12-20) BUN (9-16) mg/dL Creatinine (0.5-1.4) mg/dL Estim Creat Clear Calc Estimated GFR Random Glucose (60-115) mg/dL Calcium (8.4-10.2) mg/dL COVID-19 (MARBELLA) Positive A (Negative) COVID-19 Clin Com See Note 02/07/21 Range/Units 11:01 WBC (4.8-10.8) X10*3/uL RBC (4.60-5.80) X10*6/uL Hgb (14.0-18.0) g/dl Hct (42.0-52.0) % MCV (80.0-98.0) fL MCH (27.0-33.0) pg MCHC (31.0-36.0) g/dl RDW (11.0-16.0) % Plt Count (160-400) X10*3/uL MPV (9.4-12.4) fL Immature Gran % (Auto) (0.0-0.4) % Neut % (Auto) (45-73) % Lymph % (Auto) (20-40) % [place] % (Auto) (2-11) % Eos % (Auto) (0-4) % Baso % (Auto) (0-2) % Lymph # (Auto) (1.2-4.9) X10*3/uL [place] # (Auto) (0.1-1.2) X10*3/uL Eos # (Auto) (0.0-0.4) X10*3/uL Baso # (Auto) (0.0-0.2) X10*3/uL Abs Immat Gran (auto) (0.00-0.03) X10*3/uL Absolute Neuts (auto) (2.0-8.3) x10*3/uL Absolute Nucleated RBC (0.0-0.012) X10*3/uL Nucleated RBC % (auto) (0.0-0.2) /100WBC PT (9.9-13.0) SEC INR (0.9-1.1) APTT (24.1-38.0) SEC Sodium 150 H (135-145) mmol/L Potassium 4.3 (3.3-5.1) mmol/L Chloride 111 H (96-108) mmol/L Carbon Dioxide 29 (22-29) mmol/L Anion Gap 14 (12-20) BUN 18 H (9-16) mg/dL Creatinine 0.82 (0.5-1.4) mg/dL Estim Creat Clear Calc 108.9 Estimated GFR > 60 Random Glucose 91 (60-115) mg/dL Calcium 10.2 D (8.4-10.2) mg/dL COVID-19 (MARBELLA) (Negative) COVID-19 Clin Com Discharge Plan Discharge Clinical Impression: Dislodged gastrostomy tube, COVID-19, Acute dehydration, Acute hypernatremia Patient Disposition: Admitted As Inpatient
[2021-02-07 07:42] VITALS: BP 148/77; BP 155/98; PULSE 60; PULSE 64; RESP 16; TEMP 36.7; O2SAT 98; O2SAT 99; BMI 28.5
--- NOTE | 2021-02-07 08:22 | PC.NURSE ---
DR SIERRA AT THE BEDSIDE AFTER DR JARVIS NOTED NO CLEAR TRACK FOR REINSERTION FOLLOWING ATTEMPT WITH 18FR TUBE. PLAN IS FOR SURGERY FOR NEW PLACEMENT
--- NOTE | 2021-02-07 08:30 | PM.CNGS ---
History of Present Illness Consult details Consult date: 02/07/21 Requesting physician: Maricel Stover Narrative: 65-year-old male patient with a previous history of dementia, presenting from snf after the patient was found with his gastrostomy tube removed. The time of dislodgement is unknown and attempts to replace the tube in the snf were unsuccessful. He presents to the emergency department for replacement of the tube. Attempts to replace the tube in the emergency department were also unsuccessful. Surgical consultation was requested for replacement of gastrostomy tube. The patient is dependent on G-tube for all nutrition. The patient is on Eliquis for atrial fibrillation. Review of Systems Review of Systems: Yes Unobtainable due to mental status PMFSH Past Medical History Medical History Advanced dementia Afib Alzheimer disease Deep vein thrombosis (DVT) Dysphagia G tube feedings Glaucoma HTN (hypertension) Mood disorder Social History Social History Household Members: Other Housing: Group Home Do you presently have visiting nurse or other home services: No Unable to assess alcohol history related to: Unable to respond Alcohol intake: unknown Patient Tobacco Use Status: Tobacco use Unknown Advance Directives: Yes Advance Directives Information Provided: Yes Advance Directives on File: No Advance Directives Date on File: 08/05/20 service: No (UNKLNOWN) Current occupational status: retired Meds Allergies Allergy/AdvReac Type Severity Reaction Status Date / Time atenolol Allergy Unknown Verified 08/04/20 13:37 duloxetine [From Cymbalta] Allergy Unknown Verified 08/04/20 13:37 ibuprofen Allergy Unknown Verified 08/04/20 13:37 levofloxacin [From Levaquin] Allergy Unknown Verified 08/04/20 13:37 Active Medications: Current Medications Pharmacy Consult (Consult Rx Perform Med Rec) 1 each MISCELLANE ONCE PRN PRN Reason: Consult order Home Medications Medication Instructions Recorded Confirmed Last Taken Type ascorbic acid (vitamin C) 500 mg 500 mg PO DAILY 09/20/20 09/20/20 09/20/20 History tablet (Vitamin C) ergocalciferol (vitamin D2) 1,250 1.25 mcg FEEDING TUBE Q28D 09/20/20 09/20/20 09/20/20 History mcg (50,000 unit) capsule (Vitamin D2) zinc 50 mg capsule 50 mg DAILY 09/20/20 09/20/20 09/20/20 History Physical Exam Vital Signs: Vital Signs: Last Vital Signs Temp 98.1 F 02/07/21 07:42 Pulse 64 02/07/21 07:42 Resp 16 02/07/21 07:42 BP 148/77 H 02/07/21 07:42 Pulse Ox 98 02/07/21 07:42 BMI result Body Mass Index 28.5 Const: General: no acute distress and patient obtunded Nutritional Appearance: well nourished Orientation/consciousness: patient obtunded HENMT: Head: Yes normocephalic and Yes atraumatic Resp: Effort & Inspection: normal respiratory effort, no audible wheezes, no cough and no respiratory distress GI: Other: Soft and nondistended. Gastrostomy site in the left upper quadrant with a small residual opening. No gastric contents are noted on the skin. Percussion: Yes normal to percussion Auscultation: normal bowel sounds Skin: Other: Warm, dry, no rash Neuro: General: patient obtunded Extrem: General: Yes normal to inspection Results Labs Labs: All other labs normal. Assessment and Plan (1) Dislodged gastrostomy tube: Status: Acute 65-year-old male patient with Alzheimer's disease with severe dementia, presenting with a dislodged gastrostomy tube. Patient is found to have a very small residual track. I attempted to dilate the track using a coude catheter, 18 [place] but was unable to pass beyond the subcutaneous tissue. Patient will probably require a new PEG tube. I reviewed this with Dr. Scherer. Patient is currently on Eliquis for AFib and this will need to be held prior to the procedure. Procedures Date of Service Date of Service: 02/07/21
--- NOTE | 2021-02-07 09:06 | PHA.MEDREC ---
Pharmacy Consult ? Medication Reconciliation Pharmacy has completed the medication reconciliation. Used list from [facility]
[2021-02-07 09:13] LABS: INTERNATIONAL NORM RATIO 1.3 (0.9-1.1); Prothrombin Time 15.1 SEC (9.9-13.0)
[2021-02-07 09:16] LABS: Partial Thromboplastin Time 39.9 SEC (24.1-38.0)
[2021-02-07 09:31] LABS: COVID-19 Test Positive (Negative); IDNOW Serial# 9DD0AD1C
--- NOTE | 2021-02-07 09:35 | PC.NURSE ---
DELAY IN OBTAINING LABS PT IS A DIFFICULT DRAW. PHLEBOTOMY HAS BEEN CALLED
[2021-02-07 10:38] VITALS: BP 157/84; PULSE 69; RESP 16; TEMP 36.3; O2SAT 98
--- NOTE | 2021-02-07 10:41 | PC.NURSE ---
pt resting in room. no outwardly distress noted, asymptomatic covid + results
[2021-02-07 11:05] LABS: MANUAL DIFF FLAG NO
[2021-02-07 11:08] LABS: Basophils Percent Auto 0.3 % (0-2); Eosinophils Absolute Auto 0.1 X10*3/uL (0.0-0.4); Eosinophils Percent Auto 1.4 % (0-4); Hemoglobin 16.5 g/dl (14.0-18.0); Imm Gran Abs Auto 0.02 X10*3/uL (0.00-0.03); Imm Gran Pct Auto 0.3 % (0.0-0.4); Lymphocytes Absolute Auto 1.6 X10*3/uL (1.2-4.9); Lymphocytes Percent Auto 20.5 % (20-40); Mean Corpuscular HGB Conc 31.7 g/dl (31.0-36.0); Mean Corpuscular Hemoglobin 27.9 pg (27.0-33.0); Mean Corpuscular Volume 87.8 fL (80.0-98.0); Mean Platelet Volume 11.2 fL (9.4-12.4); Monocytes Absolute Auto 0.5 X10*3/uL (0.1-1.2); Monocytes Percent Auto 6.6 % (2-11); Neutrophils Absolute Auto 5.4 x10*3/uL (2.0-8.3); Neutrophils Percent Auto 70.9 % (45-73); Platelet Count 176 X10*3/uL (160-400); Red Blood Count 5.92 X10*6/uL (4.60-5.80); Red Cell Distribution Width 14.9 % (11.0-16.0); White Blood Count 7.6 X10*3/uL (4.8-10.8)
[2021-02-07] MEDS: 0.9 % Sodium Chloride 1,000 ML 75 ML IVCONT (11:12)
[2021-02-07 11:29] LABS: Anion Gap 14 (12-20); Blood Urea Nitrogen 18 mg/dL (9-16); Calcium 10.2 mg/dL (8.4-10.2); Carbon Dioxide 29 mmol/L (22-29); Chloride 111 mmol/L (96-108); Creatinine Clr Calc Pharmacy 108.9; Estimated Glomerular Filt Rate > 60; Glucose Random 91 mg/dL (60-115); Potassium 4.3 mmol/L (3.3-5.1); Sodium 150 mmol/L (135-145)
--- NOTE | 2021-02-07 11:55 | PC.NURSE ---
This telegraphic typewriter operator chief called ERICK Yeboah of [facility] with report of patient's (+) covid test. Bharat repeated back result and verbalized (+) understanding. He articulated he will follow up with [facility] site staff.
[2021-02-07] MEDS: 0.9 % Sodium Chloride 500 ML IV (12:35)
--- NOTE | 2021-02-07 12:43 | P.HPHOSP_ITS ---
History of Present Illness Date of Service: 02/07/21 Attending physician on admission: Kenan Whelan Chief Complaint: Gtube off 65-year-old man with history of Alzheimer's dementia [facility] and was found to have his gastrostomy 2 dislodged. Unfortunately the time frame is unknown with how long it was out for and replacement at the jail was unsuccessful. Unfortunately due to patient's dementia he is unable to answer any questions. In the ER his sodium was noted to be elevated at 150, vital signs stable. He received 500 mL of IV fluid. He will be admitted for further management treatment of this dislodged gtube Review of Systems Review of Systems: Denies any recent fever chills or decrease in appetite respiratory denies any shortness of breath coverage production cardiovascular is adjustment of any PND or edema gastrointestinal denies any dysphagia abdominal pain nausea vomiting or diarrhea genitourinary denies any dysuria frequency or hematuria musculoskeletal denies any joint pain or swelling neuropsych denies any weakness or seizures all other systems reviewed are negative [facility] Medical History Advanced dementia Afib Alzheimer disease Deep vein thrombosis (DVT) Dysphagia G tube feedings Glaucoma HTN (hypertension) Mood disorder Social History Household Members: Other Housing: Care Home Do you presently have visiting nurse or other home services: No Unable to assess alcohol history related to: Unable to respond Alcohol intake: unknown Patient Tobacco Use Status: Tobacco use Unknown Advance Directives: Yes Advance Directives Information Provided: Yes Advance Directives on File: No Advance Directives Date on File: 08/05/20 service: No (Incarcerated for 47 years) Current occupational status: retired Meds Allergies Allergy/AdvReac Type Severity Reaction Status Date / Time atenolol Allergy Unknown Verified 08/04/20 13:37 duloxetine [From Cymbalta] Allergy Unknown Verified 08/04/20 13:37 ibuprofen Allergy Unknown Verified 08/04/20 13:37 levofloxacin [From Levaquin] Allergy Unknown Verified 08/04/20 13:37 Active Medications: Current Medications Acetaminophen (Acetaminophen 325 Mg Tablet) 650 mg PO Q4H PRN PRN Reason: Pain, Mild (Pain Scale 1-3) Aspirin (Aspirin 81 Mg Tab.Chew) 81 mg G-TUBE DAILY@0900 [facility] Atropine Sulfate (Atropine Sulfate 1 % Ophth Uyen 2 Ml Bottle) 2 drop SUBLINGUAL Q2H PRN PRN Reason: Secretions Ergocalciferol (Ergocalciferol (Vitamin D2) 1,250 Mcg Capsule) 1.25 mcg PO Q28D [facility] Famotidine (Famotidine 20 Mg Tablet) 40 mg G-TUBE DAILY@0900 [facility] Sodium Chloride (Ns) 1,000 mls @ 75 mls/hr IVCONT .[id number] [facility] Last Admin: 02/07/21 11:12 Dose: 75 mls/hr Documented by: Sodium Chloride (Ns) 500 mls @ 500 mls/hr IV .Q1H [facility] Stop: 02/07/21 12:44 Last Admin: 02/07/21 12:35 Dose: 500 mls/hr Documented by: Dextrose (D5w) 1,000 mls @ 100 mls/hr IVCONT .Q10H [facility] Ivermectin (Ivermectin 3 Mg Tablet) 18 mg PO Q14D [facility] Non-Formulary Medication (Menthol-Zinc Oxide [Risamine]) 1 appl TOPICAL QID PRN PRN Reason: BED RASH Non-Formulary Medication (Nutritional Supplements [Osmolite 1.2 Cristobal]) 84 each feeding tube QSHIFT [facility] Non-Formulary Medication (Simvastatin) 20 mg feeding tube BEDTIME [facility] Pharmacy Consult (Consult Rx Perform Med Rec) 1 each MISCELLANE ONCE PRN PRN Reason: Consult order Sodium Chloride (0.9 % Sodium Chloride Flush 3 Ml Syringe) 3 ml IVFLUSH QSHIFT [facility] Sodium Chloride (0.9 % Sodium Chloride Flush 3 Ml Syringe) 3 ml IVFLUSH QSHIFT [facility] Valproic Acid (Valproic Acid (As Sodium Salt) 250 Mg/5 Ml Solution) 750 mg G- TUBE BID [facility] Home Medications Medication Instructions Recorded Confirmed Last Taken Type ergocalciferol (vitamin D2) 1,250 1,250 mcg FEEDING TUBE Q28D 09/20/20 02/07/21 09/20/20 History mcg (50,000 unit) capsule (Vitamin D2) acetaminophen 325 mg tablet 325 mg FEEDING TUBE QID PRN 02/07/21 02/07/21 Unknown History atropine 1 % eye drops 2 drp SUBLINGUAL Q2H PRN 02/07/21 02/07/21 Unknown History calcium alginate 4 X 4 bandage 02/07/21 02/07/21 Unknown History ivermectin 3 mg tablet 18 mg PO Q14D 02/07/21 02/07/21 01/30/21 History menthol 0.44 %-zinc oxide 20.6 % 1 appl TOPICAL QID PRN 02/07/21 02/07/21 Unkn own History topical ointment (Risamine) nutritional supplements 0.06 84 ea FEEDING TUBE QSHIFT 02/07/21 02/07/21 Unknown History gram-1.2 kcal/mL oral liquid (Osmolite 1.2 Cristobal) Physical Exam Vital Signs and Narrative: Vital Signs: Last Vital Signs Temp 97.4 F 02/07/21 10:38 Pulse 69 02/07/21 10:38 Resp 16 02/07/21 10:38 BP 157/84 H 02/07/21 10:38 Pulse Ox 98 02/07/21 10:38 BMI result Body Mass Index 28.5 Appearing in no acute distress head is normocephalic atraumatic eyes pupils are PERRLA sclera is anicteric mouth throat mucous membranes are intact and moist neck is supple no lymphadenopathy, no JVD noted lung sounds are clear to auscultation heart regular rate rhythm, clear S1, S2 positive bowel sounds, abdomen is soft, nontender neuro patient is alert x3, no focal deficits Results Labs CBC and Chem 7: 02/08/21 08:57 02/08/21 08:57 Labs: Laboratory Results - last 24 hr 02/07/21 02/07/21 02/07/21 08:51 08:51 11:01 MCV 87.8 MCH 27.9 MCHC 31.7 RDW 14.9 Plt Count 176 MPV 11.2 Immature Gran % (Auto) 0.3 Neut % (Auto) 70.9 Lymph % (Auto) 20.5 [place] % (Auto) 6.6 Eos % (Auto) 1.4 Baso % (Auto) 0.3 Lymph # (Auto) 1.6 [place] # (Auto) 0.5 Eos # (Auto) 0.1 Baso # (Auto) 0.0 Abs Immat Gran (auto) 0.02 Absolute Neuts (auto) 5.4 Absolute Nucleated RBC 0.000 Nucleated RBC % (auto) 0.0 PT 15.1 H INR 1.3 H APTT 39.9 H Anion Gap Estim Creat Clear Calc Estimated GFR Random Glucose Calcium COVID-19 (MARBELLA) Positive A COVID-19 Clin Com See Note 02/07/21 11:01 MCV MCH MCHC RDW Plt Count MPV Immature Gran % (Auto) Neut % (Auto) Lymph % (Auto) [place] % (Auto) Eos % (Auto) Baso % (Auto) Lymph # (Auto) [place] # (Auto) Eos # (Auto) Baso # (Auto) Abs Immat Gran (auto) Absolute Neuts (auto) Absolute Nucleated RBC Nucleated RBC % (auto) PT INR APTT Anion Gap 14 Estim Creat Clear Calc 108.9 Estimated GFR > 60 Random Glucose 91 Calcium 10.2 D COVID-19 (MARBELLA) COVID-19 Clin Com Assessment and Plan (1) Acute hypernatremia: Status: Acute (2) COVID-19: Status: Acute (3) Acute dehydration: Status: Acute (4) Dislodged gastrostomy tube: Status: Acute 65-year-old man admitted after being [facility] jail with his gastrostomy to dislodged /removed. Also appears to be quite dehydrated secondary to this likely Hypernatremia. Secondary to dehydration from gastrostomy tube removal /dislodgement D5W. Recheck sodium this afternoon If no improvement consider consulting Nephrology Gastrostomy tube dislodgement General surgery consultation Will likely need PEG tube Hold Eliquis Atrial fibrillation On Eliquis, will hold for now as patient will need gastrostomy tube replaced COVID-19. Asymptomatic Alzheimer's dementia. Severe Attending Dr. Whelan Full code Quality Stroke Does the patient have a stroke diagnosis?: No VTE Prior VTE?: No VTE Risk Level:: Medical - moderate - high VTE Device Contraindication: N/A - Device Ordered VTE Drug Contraindication: Treatment Not Indicated
[2021-02-07 13:05] VITALS: PULSE 81; RESP 20; TEMP 37.3; O2SAT 97
[2021-02-07] MEDS: Dextrose 5 % 1,000 ML 100 ML IVCONT (14:36)
[2021-02-07 14:46] VITALS: BP 113/60; PULSE 74; RESP 18; O2SAT 99
--- NOTE | 2021-02-07 15:58 | PM.EVENT ---
Event Note Date of Service: 02/07/21 Event Note: H&P reviewed Patient had a PEG tube placed last August, Apparently got dislodged Unable to replace the PEG tube through existing opening Will need to redo PEG tube placement I discussed this with healthcare proxy and sister Michael [phone] I reviewed with her the technique of PEG tube placement as well as the risks including but not limited to bleeding, infections, injury to bowel esophagus, inherent risks of anesthesia, loss of airway She has given consent Patient however got his dose of Eliquis last night - will need to hold Eliquis for 2 doses before peg placement
[2021-02-07 17:42] VITALS: BP 131/66; PULSE 66; RESP 18; O2SAT 96
--- NOTE | 2021-02-07 19:22 | MHC.CM.PN ---
Pt from [facility]. Pt. is non-ambulatory and non-verbal with advanced dementia. Pt has Guardianship and Frank's Order. On record. Guardian/sister Michael Sharp ([phone]). Michael tells CM that pt was incarcerated for 47 years and received a medical parole to [facility] in May 2020. IMM reviewed and completed per protocol 02/07/2021 @1800. Copy to guardian via office for registered mail. Copy to medical records. Pt is positive Covid. Pt fully vaccinated and received booster. [facility] nursing management aware. D/C plan is to return to [facility]. Return referral placed. CM to follow for d/c needs.
[2021-02-08] MEDS: Dextrose 5 % 1,000 ML 100 ML IVCONT ×2 (00:13→13:17)
[2021-02-08 00:25] VITALS: BP 133/69; PULSE 63; TEMP 36.1; O2SAT 100
[2021-02-08] MEDS: 0.9 % Sodium Chloride 1,000 ML 75 ML IVCONT (02:09)
[2021-02-08 06:00] VITALS: BP 173/88; PULSE 58; RESP 16; TEMP 36.7; O2SAT 100
[2021-02-08 07:26] VITALS: BP 176/95; PULSE 63; RESP 20; TEMP 36.5; O2SAT 100
[2021-02-08 09:08] LABS: Hematocrit 46.5 % (42.0-52.0); Hemoglobin 14.7 g/dl (14.0-18.0); Mean Corpuscular HGB Conc 31.6 g/dl (31.0-36.0); Mean Corpuscular Hemoglobin 27.6 pg (27.0-33.0); Mean Corpuscular Volume 87.4 fL (80.0-98.0); Mean Platelet Volume 11.5 fL (9.4-12.4); Platelet Count 147 X10*3/uL (160-400); Red Blood Count 5.32 X10*6/uL (4.60-5.80); Red Cell Distribution Width 14.7 % (11.0-16.0); White Blood Count 8.3 X10*3/uL (4.8-10.8)
[2021-02-08 09:21] LABS: Anion Gap 11 (12-20); Blood Urea Nitrogen 16 mg/dL (9-16); Calcium 9.4 mg/dL (8.4-10.2); Carbon Dioxide 29 mmol/L (22-29); Chloride 110 mmol/L (96-108); Creatinine Clr Calc Pharmacy 107.6; Estimated Glomerular Filt Rate > 60; Glucose Random 98 mg/dL (60-115); Potassium 3.9 mmol/L (3.3-5.1); Sodium 146 mmol/L (135-145)
[2021-02-08 11:00] VITALS: BP 141/96; PULSE 61; RESP 18; TEMP 36.6; O2SAT 98
--- NOTE | 2021-02-08 11:28 | P.PNIM_ITS ---
Subjective Subjective Date of Service: 02/08/21 Review of Systems Follow up gtube dislodgement Non verbal Resting in bed Physical Exam Vital Signs: Vital Signs: Last Vital Signs Temp 97.9 F 02/08/21 11:00 Pulse 61 02/08/21 11:00 Resp 18 02/08/21 11:00 BP 141/96 H 02/08/21 11:00 Pulse Ox 98 02/08/21 11:00 BMI result Body Mass Index 28.5 Appearing in no acute distress lung sounds are clear to auscultation heart regular rate rhythm, clear S1, S2 positive bowel sounds, abdomen is soft, nontender neuro patient is alert,confused. Objective Data Active Medications Acetaminophen (Acetaminophen 325 Mg Tablet) 650 mg PO Q4H PRN PRN Reason: Pain, Mild (Pain Scale 1-3) Atorvastatin Calcium (Atorvastatin Calcium 10 Mg Tablet) 10 mg G-TUBE BEDTIME [facility] Last Admin: 02/07/21 22:06 Dose: Not Given Documented by: ANGEL Non-Admin Reason: No Access Atropine Sulfate (Atropine Sulfate 1 % Ophth Uyen 2 Ml Bottle) 2 drop SUBLINGUAL Q2H PRN PRN Reason: Secretions Ergocalciferol (Ergocalciferol (Vitamin D2) 1,250 Mcg Capsule) 1,250 mcg PO Q28D [facility] Last Admin: 02/08/21 07:29 Dose: Not Given Documented by: ALMA ROSA Non-Admin Reason: NPO Famotidine (Famotidine 20 Mg Tablet) 40 mg G-TUBE DAILY@0900 [facility] Last Admin: 02/08/21 07:30 Dose: Not Given Documented by: ALMA ROSA Non-Admin Reason: No G-Tube, NPO Dextrose (D5w) 1,000 mls @ 100 mls/hr IVCONT .Q10H [facility] Last Admin: 02/08/21 09:42 Dose: Not Given Documented by: ALMA ROSA Non-Admin Reason: IV Running Cefazolin Sodium/Dextrose (Ancef) 2 gm in 50 mls @ 100 mls/hr IV PREOP ONE Stop: 02/08/21 14:50 Ivermectin (Ivermectin 3 Mg Tablet) 18 mg PO Q14D [facility] Stop: 02/13/21 09:01 Pharmacy Consult (Consult Rx Perform Med Rec) 1 each MISCELLANE ONCE PRN PRN Reason: Consult order Sodium Chloride (0.9 % Sodium Chloride Flush 3 Ml Syringe) 3 ml IVFLUSH QSHIFT [facility] Last Admin: 02/08/21 07:29 Dose: Not Given Documented by: ALMA ROSA Non-Admin Reason: IV Running Sodium Chloride (0.9 % Sodium Chloride Flush 3 Ml Syringe) 3 ml IVFLUSH QSHIFT [facility] Last Admin: 02/08/21 07:29 Dose: Not Given Documented by: ALMA ROSA Non-Admin Reason: IV Running Valproic Acid (Valproic Acid (As Sodium Salt) 250 Mg/5 Ml Solution) 750 mg G-TUBE BID [facility] Last Admin: 02/08/21 07:30 Dose: Not Given Documented by: ALMA ROSA Non-Admin Reason: No Access Zinc Oxide (Zinc Oxide 20% Ointment 28.35 Gm Tube) 1 appl TOPICAL QID PRN PRN Reason: BED RASH Labs CBC & Chem 7: 02/08/21 08:57 02/08/21 08:57 Labs: Laboratory Results - last 24 hr 02/07/21 02/08/21 02/08/21 11:01 08:57 08:57 MCV 87.4 MCH 27.6 MCHC 31.6 RDW 14.7 Plt Count 147 L MPV 11.5 Absolute Nucleated RBC 0.000 Nucleated RBC % (auto) 0.0 Anion Gap 14 11 L Estim Creat Clear Calc 108.9 107.6 Estimated GFR > 60 > 60 Random Glucose 91 98 Calcium 10.2 D 9.4 D Assessment and Plan (1) Acute hypernatremia: Status: Acute (2) COVID-19: Status: Acute (3) Dislodged gastrostomy tube: Status: Acute Assessment and Plan: 65-year-old man admitted [facility] with his gastrostomy to dislodged /removed.? Also appears to be quite dehydrated secondary to this likely Hypernatremia.? Secondary to dehydration from gastrostomy tube removal /dislodgement D5W. follow BMP If no improvement consider consulting Nephrology Gastrostomy tube dislodgement General surgery consultation Will likely need PEG tube Hold Eliquis Atrial fibrillation On Eliquis, will hold for now as patient will need gastrostomy tube replaced COVID-19. Asymptomatic Alzheimer's dementia.? Severe DISPO of note will check PCR once patient medically stable from [facility] perspective. If he is still positive he will need to stay [place] [facility] [place] [facility] Attending Dr. Mcgraw Full code Quality Stroke Does the patient have a stroke diagnosis?: No VTE Prior VTE?: No VTE Risk Level:: Medical - moderate - high VTE Device Contraindication: N/A - Device Ordered VTE Drug Contraindication: Treatment Not Indicated
[2021-02-08 12:23] VITALS: BMI 28.5
--- NOTE | 2021-02-08 12:30 | MHC.CLN ---
PT REQUIRES TF FOR NUTRITION SUPPORT R/T DYSPHAGIA PTS GTUBE DISLODGED FOR UNKNOWN LENGTH OF TIME; UNSUCCESSFUL RE-INSERTION. PT PENDING SX TO PLACE NEW PEG PT IS CURRENLTY NPO WHEN NEW PEG PLACED; RECOMMEND JEVITY 1.0 AT MAX GOAL RATE 90ML/HR WITH 300CC FREE WATER FLUSHES Q 6HRS TO PROVIDE 2289KCALS (24KCALS/KG), 96G PROTEIN (1.0G/KG), 3004CC TOTAL WATER FROM FORMULA AND FLUSHES (32CC/KG) START FORMULA AT 20ML/HR AND INCREASE BY 10ML Q 4HRS UNTIL MAX GOAL IS ACHIEVED MONITOR TOLERANCE, RESIDUALS AND LYTES SEE FULL CLINICAL NUTRITION ASSESSMENT
--- NOTE | 2021-02-08 15:53 | MHC.CM.PN ---
CM spoke with Medical records at guardian's request for information on obtaining her brother's medical records. CM informed guardian, Michael Sharp, that medical records will send her a release form to complete and return so she can obtain the medical records she requested. Reviewed plan of care with guardian, including holding Eliquis for 2 days prior to surgery to replace G-tube, that PCR test will be repeated when medically stable and if positive, will remain at [facility] for quarantine, per Dr. Mcgraw. Michael very happy for the information. Has CM contact information. CM to follow for d/c needs.
[2021-02-08 16:00] VITALS: BP 132/68; PULSE 89; RESP 18; TEMP 37; O2SAT 97
--- NOTE | 2021-02-08 16:45 | PM.EVENT ---
Event Note Date of Service: 02/08/21 Event Note: Patient has been admitted the COVID unit yesterday as he had tested positive. As per nursing staff, he has remained asymptomatic No respiratory issues have been noted His Eliquis has been held since last night The plan is to proceed with peg tube placement tomorrow I had another discussion with his care proxy Michael Sharp this afternoon She understands the planned procedure. She was aware of the risks, benefits, and alternatives She has given consent.
[2021-02-08 20:00] VITALS: BP 119/89; PULSE 60; RESP 18; TEMP 37.1; O2SAT 100
[2021-02-08] MEDS: Dextrose 5 % 1,000 ML 80 ML IVCONT (22:53)
[2021-02-08] MEDS: 0.9 % Sodium Chloride Flush 3 ML SYRINGE IVFLUSH (22:54)
[2021-02-09] VITALS (14 sets, daily range): BP systolic 131–168; BP diastolic 72–104; PULSE 56–100; RESP 16–36; TEMP 35.5–37.2; O2SAT 94–100
[2021-02-09 07:51] LABS: Hematocrit 41.4 % (42.0-52.0); Hemoglobin 13.7 g/dl (14.0-18.0); Mean Corpuscular HGB Conc 33.1 g/dl (31.0-36.0); Mean Corpuscular Hemoglobin 28.2 pg (27.0-33.0); Mean Corpuscular Volume 85.4 fL (80.0-98.0); Mean Platelet Volume 11.7 fL (9.4-12.4); Platelet Count 151 X10*3/uL (160-400); Red Blood Count 4.85 X10*6/uL (4.60-5.80); Red Cell Distribution Width 14.6 % (11.0-16.0); White Blood Count 6.4 X10*3/uL (4.8-10.8)
[2021-02-09 08:30] LABS: Anion Gap 14 (12-20); Blood Urea Nitrogen 11 mg/dL (9-16); Carbon Dioxide 19 mmol/L (22-29); Chloride 109 mmol/L (96-108); Creatinine Clr Calc Pharmacy 133.3; Estimated Glomerular Filt Rate > 60; Glucose Random 88 mg/dL (60-115); Potassium 3.9 mmol/L (3.3-5.1); Sodium 138 mmol/L (135-145)
[2021-02-09] MEDS: 0.9 % Sodium Chloride Flush 3 ML SYRINGE IVFLUSH (08:30)
--- NOTE | 2021-02-09 08:45 | P.CONAN_ITS ---
[facility] Active Problems Active Problems: All Active Problems (Updated 02/07/21 @ 11:44 by Maricel castaneda DO) COVID-19 (Acute) Acute dehydration (Acute) Acute hypernatremia (Acute) Dislodged gastrostomy tube (Acute) Acute respiratory failure with hypoxia (Acute) Sepsis (Acute) Past Medical History Medical History Advanced dementia Afib Alzheimer disease Deep vein thrombosis (DVT) Dysphagia G tube feedings Glaucoma HTN (hypertension) Mood disorder Surgical History History of Problems with Anesthesia: No Social History Social History Household Members: Other Housing: Detention Do you presently have visiting nurse or other home services: No Unable to assess alcohol history related to: Unable to respond Alcohol intake: unknown Patient Tobacco Use Status: Tobacco use Unknown Use of substances other than those prescribed or required for medical reasons: No Currently Displaying Signs/Symptoms of Drug Intoxication Withdrawal: No Advance Directives: Yes Advance Directives Information Provided: Yes Advance Directives on File: No Advance Directives Date on File: 08/05/20 Do you have thoughts of harming others: None Do you have a plan to hurt others: No Plan Recently lost weight without trying: Unsure Nutrition Risks: Difficulty chewing, Difficulty swallowing and Receiving home tube feeding or CPN Poor oral hygiene: Yes service: No (Incarcerated for 47 years) Current occupational status: retired [employer] Allergies Allergy/AdvReac Type Severity Reaction Status Date / Time atenolol Allergy Unknown Verified 08/04/20 13:37 duloxetine [From Cymbalta] Allergy Unknown Verified 08/04/20 13:37 ibuprofen Allergy Unknown Verified 08/04/20 13:37 levofloxacin [From Levaquin] Allergy Unknown Verified 08/04/20 13:37 Active Medications: Current Medications Acetaminophen (Acetaminophen 325 Mg Tablet) 650 mg PO Q4H PRN PRN Reason: Pain, Mild (Pain Scale 1-3) Atorvastatin Calcium (Atorvastatin Calcium 10 Mg Tablet) 10 mg G-TUBE BEDTIME [facility] Last Admin: 02/08/21 22:19 Dose: Not Given Documented by: Atropine Sulfate (Atropine Sulfate 1 % Ophth Uyen 2 Ml Bottle) 2 drop SUBLINGUAL Q2H PRN PRN Reason: Secretions Ergocalciferol (Ergocalciferol (Vitamin D2) 1,250 Mcg Capsule) 1,250 mcg PO Q28D [facility] Last Admin: 02/08/21 07:29 Dose: Not Given Documented by: Famotidine (Famotidine 20 Mg Tablet) 40 mg G-TUBE DAILY@0900 [facility] Last Admin: 02/09/21 08:29 Dose: Not Given Documented by: Dextrose (D5w) 1,000 mls @ 80 mls/hr IVCONT .[id number] [facility] Last Admin: 02/08/21 22:53 Dose: 80 mls/hr Documented by: Ivermectin (Ivermectin 3 Mg Tablet) 18 mg PO Q14D [facility] Stop: 02/13/21 09:01 Pharmacy Consult (Consult Rx Perform Med Rec) 1 each MISCELLANE ONCE PRN PRN Reason: Consult order Sodium Chloride (0.9 % Sodium Chloride Flush 3 Ml Syringe) [place] Last Admin: 02/09/21 08:30 Dose: 3 ml Documented by: Sodium Chloride (0.9 % Sodium Chloride Flush 3 Ml Syringe) 3 ml IVFLUSH [facility] Last Admin: 02/09/21 08:30 Dose: Not Given Documented by: Valproic Acid (Valproic Acid (As Sodium Salt) 250 Mg/5 Ml Solution) 750 mg G- TUBE BID [facility] Last Admin: 02/09/21 08:39 Dose: Not Given Documented by: Zinc Oxide (Zinc Oxide 20% Ointment 28.35 Gm Tube) 1 appl TOPICAL QID PRN PRN Reason: BED RASH Home Medications Medication Instructions Recorded Confirmed Last Taken Type ergocalciferol (vitamin D2) 1,250 1,250 mcg FEEDING TUBE Q28D 09/20/20 02/07/21 09/20/20 History mcg (50,000 unit) capsule (Vitamin D2) acetaminophen 325 mg tablet 325 mg FEEDING TUBE QID PRN 02/07/21 02/07/21 Unknown History atropine 1 % eye drops 2 drp SUBLINGUAL Q2H PRN 02/07/21 02/07/21 Unknown History calcium alginate 4 X 4 bandage 02/07/21 02/07/21 Unknown History ivermectin 3 mg tablet 18 mg PO Q14D 02/07/21 02/07/21 01/30/21 History menthol 0.44 %-zinc oxide 20.6 % 1 appl TOPICAL QID PRN 02/07/21 02/07/21 Unknown History topical ointment (Risamine) nutritional supplements 0.06 84 ea FEEDING TUBE QSHIFT 02/07/21 02/07/21 Unknown History gram-1.2 kcal/mL oral liquid (Osmolite 1.2 Cristobal) Exam Exam Date and Time: February 09, 2021 0845 Height,Weight and Vital Signs: Height 6 ft Weight 95.254 kg Last Vital Signs Temp 98 F 02/09/21 06:59 Pulse 56 02/09/21 06:59 Resp 20 02/09/21 06:59 BP 150/72 H 02/09/21 06:59 Pulse Ox 100 02/09/21 06:59 Pertinent Lab Results Pertinent Lab Results: Laboratory Tests 02/07/21 02/07/21 02/07/21 08:51 08:51 11:01 WBC 7.6 RBC 5.92 H Hgb 16.5 Hct 52.0 MCV 87.8 MCH 27.9 MCHC 31.7 RDW 14.9 Plt Count 176 MPV 11.2 Immature Gran % (Auto) 0.3 Neut % (Auto) 70.9 Lymph % (Auto) 20.5 Anson % (Auto) 6.6 Eos % (Auto) 1.4 Baso % (Auto) 0.3 Lymph # (Auto) 1.6 Anson # (Auto) 0.5 Eos # (Auto) 0.1 Baso # (Auto) 0.0 Abs Immat Gran (auto) 0.02 Absolute Neuts (auto) 5.4 Absolute Nucleated RBC 0.000 Nucleated RBC % (auto) 0.0 PT 15.1 H INR 1.3 H APTT 39.9 H Sodium Potassium Chloride Carbon Dioxide Anion Gap BUN Creatinine Estim Creat Clear Calc Estimated GFR Random Glucose Calcium COVID-19 (MARBELLA) Positive A COVID-19 Clin Com See Note 02/07/21 02/08/21 02/08/21 11:01 08:57 08:57 WBC 8.3 RBC 5.32 Hgb 14.7 Hct 46.5 MCV 87.4 MCH 27.6 MCHC 31.6 RDW 14.7 Plt Count 147 L MPV 11.5 Immature Gran % (Auto) Neut % (Auto) Lymph % (Auto) Anson % (Auto) Eos % (Auto) Baso % (Auto) Lymph # (Auto) Anson # (Auto) Eos # (Auto) Baso # (Auto) Abs Immat Gran (auto) Absolute Neuts (auto) Absolute Nucleated RBC 0.000 Nucleated RBC % (auto) 0.0 PT INR APTT Sodium 150 H 146 H Potassium 4.3 3.9 Chloride 111 H 110 H Carbon Dioxide 29 29 Anion Gap 14 11 L BUN 18 H 16 Creatinine 0.82 0.83 Estim Creat Clear Calc 108.9 107.6 Estimated GFR > 60 > 60 Random Glucose 91 98 Calcium 10.2 D 9.4 D COVID-19 ([facility]BELLA) COVID-19 Amminex 02/09/21 02/09/21 06:56 06:56 WBC 6.4 RBC 4.85 Hgb 13.7 L Hct 41.4 L MCV 85.4 MCH 28.2 MCHC 33.1 RDW 14.6 Plt Count 151 L MPV 11.7 Immature Gran % (Auto) Neut % (Auto) Lymph % (Auto) Anson % (Auto) Eos % (Auto) Baso % (Auto) Lymph # (Auto) Anson # (Auto) Eos # (Auto) Baso # (Auto) Abs Immat Gran (auto) Absolute Neuts (auto) Absolute Nucleated RBC 0.000 Nucleated RBC % (auto) 0.0 PT INR APTT Sodium 138 Potassium 3.9 Chloride 109 H Carbon Dioxide 19 L Anion Gap 14 BUN 11 Creatinine 0.67 Estim Creat Clear Calc 133.3 Estimated GFR > 60 Random Glucose 88 Calcium 9.0 COVID-19 (MARBELLA) COVID-19 Clin Com Airway Mallampati Class: III TM Dist: >3cm Assessment and Plan Assessment Anesthesia Assessment: Anesthesia Plan Discussed and Chart Reviewed Final Anesthetic Review History of Problems with Anesthesia: No NPO: Yes ASA Class: III Final Preanesthetic Review: Meds/Allgs Chart Reviewed, Consent Obtained/Reviewed and Anes Risks/Benef Reviewed Patient Risk: Intermediate Procedure Risk: Low Anesthetic Plan Anesthetic Plan: MAC: Disposition: Standard PACU
--- NOTE | 2021-02-09 09:38 | PM.OP ---
Brief Operative Note Date of Service: 02/09/21 Pre-op diagnosis: dislodged PEG tube Post-op diagnosis: same Procedure: percutaneous gastrostomy tube placement Implants: PEG tube 20F Surgeon: ELISA ZHU MD Anesthesia: MAC Was an Sustainability Engineer used for this Procedure?: No Sustainability Engineer: Kay Tellez Estimated blood loss (mL): 2 Pathology: none sent Condition: stable Disposition: floor (recovered in OR room due to covid+)
--- NOTE | 2021-02-09 09:39 | W.PM.OPN ---
Operative Note Operative Note Date of Service: 02/09/21 Narrative: Preop diagnosis: dysphagia, dislodged PEG tube Postop diagnosis: same Procedure: PEG tube placement Surgeon; Jovan Scherer MD Asst: CRISTIN AlmaguerKaylizzette Tellez 65M with chronic dysphagia, who had undergone PEG tube placement last August 2020, referred for tube dislodgement. The PEG tube could not be reinserted as the tract appeared to have closed. I reviewed the technique of PEG tube placement with the HCP, Michael. I explained the risks, benefits and alternatives and she had given consent. The patient was brought to the OR and placed supine and slight reclined with MAC. A surgical timeout was done. A bite block was positioned. He received preop Cefazolin. I inserted the endoscope through the bite block into the oropharnyx. The vocal chords were visualized and the esophageal slit seen posterior to this. I inserted the scope through the bite block and advanced this though the entire length of the esophagus all the way to the stomach. The stomach was insufflated to distend this. I was able to appreciate transillumination adjacent to the old stoma site. I could easily seen indentation on the anterior stomach wall when the area was pressed with finger. A small induration was seen on the stomach wall repesenting the old closed tract. The point where transillumination was seen was prepped and draped.The skin was infiltrated with Lidocaine 1%. A small stab incision was made with a blade 11. The large bore needle with the palstic cannula was inserted to the lumen. The needle was removed and the cannula was left in place. The guidewire was inserted through the cannula and was grasped with a snare. The guidewire was pulled out with the scope all the way to the mouth. The PEG tube wire was looped with the guide with. The guide wire was pulled out all the way until the PEG tube was snug on the abdominal wall. I reinserted the endoscope to examine the PEG tube from the lumen. The inner mushroom bolster was seen to be in good position. There was good hemostasis. The scope was removed. The external bolster was placed to make this snug on the skin. The procedure was completed. The patient tolerated the procedure well. There were no immediate complications. The patient was transferred to the unit with stable VS. EBL was less than 5 cc.,
--- NOTE | 2021-02-09 15:48 | P.PNIM_ITS ---
Subjective Subjective Date of Service: 02/09/21 Interval History: appears comfortable post G-tube placement Review of Systems per staff; Denies chest pain Denies shortness of jayy Respiratory Physical Exam Vital Signs: Vital Signs: Last Vital Signs Temp 97.8 F 02/09/21 15:04 Pulse 80 02/09/21 15:04 Resp 20 02/09/21 15:04 BP 146/80 H 02/09/21 15:04 Pulse Ox 94 02/09/21 15:04 BMI result Body Mass Index 28.5 Const: Other: no acute issues Resp: Other: clear to auscultation bilaterally no rales rhonchi wheezes Cardio: Other: no S4; positive S1-S2; no S3 murmurs rubs or gallops GI: Other: peg tube site clean dry and intact Extrem: Other: no edema bilateral Objective Data Active Medications Acetaminophen (Acetaminophen 325 Mg Tablet) 650 mg PO Q4H PRN PRN Reason: Pain, Mild (Pain Scale 1-3) Atorvastatin Calcium (Atorvastatin Calcium 10 Mg Tablet) 10 mg G-TUBE BEDTIME [facility] Last Admin: 02/08/21 22:19 Dose: Not Given Documented by: ARIEL Non-Admin Reason: NPO Atropine Sulfate (Atropine Sulfate 1 % Ophth Uyen 2 Ml Bottle) 2 drop SUBLINGUAL Q2H PRN PRN Reason: Secretions Ergocalciferol (Ergocalciferol (Vitamin D2) 1,250 Mcg Capsule) 1,250 mcg PO Q28D [facility] Last Admin: 02/08/21 07:29 Dose: Not Given Documented by: ALMA ROSA Non-Admin Reason: NPO Famotidine (Famotidine 20 Mg Tablet) 40 mg G-TUBE DAILY@0900 [facility] Last Admin: 02/09/21 08:29 Dose: Not Given Documented by: NIRAV Non-Admin Reason: NPO Dextrose (D5w) 1,000 mls @ 80 mls/hr IVCONT .[id number] [facility] Last Infusion: 02/09/21 12:01 Dose: 0 mls/hr Documented by: NIRAV Ivermectin (Ivermectin 3 Mg Tablet) 18 mg PO Q14D [facility] Stop: 02/13/21 09:01 Pharmacy Consult (Consult Rx Perform Med Rec) 1 each MISCELLANE ONCE PRN PRN Reason: Consult order Sodium Chloride (0.9 % Sodium Chloride Flush 3 Ml Syringe) 3 ml IVFLUSH QSOHFT [facility] Last Admin: 02/09/21 08:30 Dose: 3 ml Documented by: NIRAV Sodium Chloride (0.9 % Sodium Chloride Flush 3 Ml Syringe) [facility] Last Admin: 02/09/21 08:30 Dose: Not Given Documented by: NIRAV Non-Admin Reason: Duplicate Order Valproic Acid (Valproic Acid (As Sodium Salt) 250 Mg/5 Ml Solution) 750 mg G- TUBE BID [facility] Last Admin: 02/09/21 08:39 Dose: Not Given Documented by: NIRAV Non-Admin Reason: NPO Zinc Oxide (Zinc Oxide 20% Ointment 28.35 Gm Tube) 1 appl TOPICAL QID PRN PRN Reason: BED RASH Labs CBC & Chem 7: 02/09/21 06:56 02/09/21 06:56 Labs: Laboratory Results - last 24 hr 02/09/21 02/09/21 06:56 06:56 MCV 85.4 MCH 28.2 MCHC 33.1 RDW 14.6 Plt Count 151 L MPV 11.7 Absolute Nucleated RBC 0.000 Nucleated RBC % (auto) 0.0 Anion Gap 14 Estim Creat Clear Calc 133.3 Estimated GFR > 60 Random Glucose 88 Calcium 9.0 Assessment and Plan (1) Dislodged gastrostomy tube: Status: Acute (2) COVID-19: Status: Acute Assessment and Plan: 65-year-old man admitted after being found at the skilled nursing with his gastrostomy tube dislodged /removed.? S/P PEG insertion this PM. 1.Hypernatremia Resolved. Continue IV fluids as ordered. Check divalents/ creatinine a.m. 2.S/P PEG insertion No acute issues....follow clinically 3.CHrionic Atrial fibrillation Rate control adequate 4.COVID-19. Asymptomatic. CHeck PCR 5.Alzheimer's dementia. STable DISPO of note will check PCR once patient medically stable from gtube perspective. If he is still positive he will need to stay at [facility] to quarantine [facility] Attending Dr. Mcgraw Full code Quality Stroke Does the patient have a stroke diagnosis?: No VTE Prior VTE?: No VTE Risk Level:: Medical - moderate - high VTE Device Contraindication: N/A - Device Ordered VTE Drug Contraindication: Treatment Not Indicated
--- NOTE | 2021-02-09 15:48 | PM.EVENT ---
Event Note Date of Service: 02/09/21 Event Note: Seems to have adequate pain control As per nursing staff, patient has been comfortable No vomiting postop Dressings dry Stable vital signs Okay to start using PEG tube for nutrition tomorrow Sister Rody arthur
[2021-02-09] MEDS: Dextrose 5 % 1,000 ML 80 ML IVCONT (21:38)
[2021-02-09] MEDS: Acetaminophen 325 MG TABLET 650 MG PO (21:39)
[2021-02-09] MEDS: Atorvastatin Calcium 10 MG TABLET G-TUBE (21:39)
[2021-02-10 02:58] VITALS: BP 172/89; PULSE 71; RESP 20; TEMP 36.3; O2SAT 100
[2021-02-10 06:27] LABS: MANUAL DIFF FLAG NO
[2021-02-10 06:33] LABS: Basophils Percent Auto 0.1 % (0-2); Eosinophils Absolute Auto 0.1 X10*3/uL (0.0-0.4); Eosinophils Percent Auto 1.5 % (0-4); Hematocrit 44.3 % (42.0-52.0); Hemoglobin 14.2 g/dl (14.0-18.0); Imm Gran Abs Auto 0.03 X10*3/uL (0.00-0.03); Imm Gran Pct Auto 0.3 % (0.0-0.4); Lymphocytes Percent Auto 21.7 % (20-40); Mean Corpuscular HGB Conc 32.1 g/dl (31.0-36.0); Mean Corpuscular Hemoglobin 27.6 pg (27.0-33.0); Mean Corpuscular Volume 86.2 fL (80.0-98.0); Mean Platelet Volume 11.1 fL (9.4-12.4); Monocytes Absolute Auto 0.8 X10*3/uL (0.1-1.2); Monocytes Percent Auto 9.1 % (2-11); Neutrophils Absolute Auto 6.2 x10*3/uL (2.0-8.3); Neutrophils Percent Auto 67.3 % (45-73); Platelet Count 151 X10*3/uL (160-400); Red Blood Count 5.14 X10*6/uL (4.60-5.80); Red Cell Distribution Width 14.6 % (11.0-16.0); White Blood Count 9.3 X10*3/uL (4.8-10.8)
[2021-02-10 07:45] VITALS: BP 126/93; PULSE 72; RESP 20; TEMP 36.4; O2SAT 97
[2021-02-10] MEDS: Dextrose 5 % 1,000 ML 80 ML IVCONT (08:32)
[2021-02-10] MEDS: Acetaminophen 325 MG TABLET 650 MG PO (08:33)
[2021-02-10] MEDS: Famotidine 20 MG TABLET 40 MG G-TUBE (08:33)
--- NOTE | 2021-02-10 09:47 | MHC.CM.PN ---
Patient is a LTC Resident at [facility] [place];CM will follow/assist with transition back.
[2021-02-10 12:00] VITALS: BP 157/88; PULSE 65; RESP 20; TEMP 36.3; O2SAT 100
[2021-02-10 12:10] LABS: Influenza A PCR NEGATIVE (Negative); Influenza B PCR NEGATIVE (Negative); Resp Syncy Virus RNA Qual PCR NEGATIVE (Negative); SARS COV2 PCR INHOUSE NEGATIVE (Negative)
--- NOTE | 2021-02-10 12:24 | MHC.CLN ---
F/U PT REQUIRES TF FOR NUTRITION SUPPORT R/T DYSPHAGIA NEW PEG PLACED PT CURRENTLY REMAINS NPO RECOMMEND JEVITY 1.0 AT MAX GOAL RATE 90ML/HR WITH 300CC FREE WATER FLUSHES Q 6HRS TO PROVIDE 2289KCALS (24KCALS/KG), 96G PROTEIN (1.0G/KG), 3004CC TOTAL WATER FROM FORMULA AND FLUSHES (32CC/KG) START FORMULA AT 20ML/HR AND INCREASE BY 10ML Q 4HRS UNTIL MAX GOAL IS ACHIEVED MONITOR TOLERANCE, RESIDUALS AND LYTES
--- NOTE | 2021-02-10 12:54 | MHC.CM.PN ---
Patient's PCR is negative today.Per [facility], Patient must test (-) tomorrow and have [place] auth, prior to returning. CM Administration is aware and involved.
--- NOTE | 2021-02-10 14:18 | PM.PNGS ---
Subjective Subjective Date of Service: 02/10/21 Interval history: No events reported overnight As per nurse, patient has been comfortable Physical Exam Vital Signs: Vital Signs: Last Vital Signs Temp 97.4 F 02/10/21 12:00 Pulse 65 02/10/21 12:00 Resp 20 02/10/21 12:00 BP 157/88 H 02/10/21 12:00 Pulse Ox 100 02/10/21 12:00 BMI result Body Mass Index 28.5 Const: Other: Not communicative but appears comfortable General: no acute distress Resp: Effort & Inspection: normal respiratory effort GI: Other: Soft, dressings dry, peg tube in place, no apparent tenderness Objective Data Active Medications Acetaminophen (Acetaminophen 325 Mg Tablet) 650 mg PO Q4H PRN PRN Reason: Pain, Mild (Pain Scale 1-3) Last Admin: 02/10/21 08:33 Dose: 650 mg Documented by: NIRAV Atorvastatin Calcium (Atorvastatin Calcium 10 Mg Tablet) 10 mg G-TUBE BEDTIME [facility] Last Admin: 02/09/21 21:39 Dose: 10 mg Documented by: ARIEL Atropine Sulfate (Atropine Sulfate 1 % Ophth Uyen 2 Ml Bottle) 2 drop SUBLINGUAL Q2H PRN PRN Reason: Secretions Ergocalciferol (Ergocalciferol (Vitamin D2) 1,250 Mcg Capsule) 1,250 mcg PO Q28D [facility] Last Admin: 02/08/21 07:29 Dose: Not Given Documented by: ALMA ROSA Non-Admin Reason: NPO Famotidine (Famotidine 20 Mg Tablet) 40 mg G-TUBE DAILY@0900 [facility] Last Admin: 02/10/21 08:33 Dose: 40 mg Documented by: NIRAV Ivermectin (Ivermectin 3 Mg Tablet) 18 mg PO Q14D [facility] Stop: 02/13/21 09:01 Morphine Sulfate (Morphine Sulfate 2 Mg/Ml Cartridge) 2 mg IVPUSH Q4H PRN; Protocol PRN Reason: Pain, Severe (Pain Scale 7-10) Pharmacy Consult (Consult Rx Perform Med Rec) 1 each MISCELLANE ONCE PRN PRN Reason: Consult order Sodium Chloride (0.9 % Sodium Chloride Flush 3 Ml Syringe) 3 ml IVFLUSH QSHIFT [facility] Last Admin: 02/10/21 08:32 Dose: Not Given Documented by: NIRAV Non-Admin Reason: Duplicate Order Sodium Chloride (0.9 % Sodium Chloride Flush 3 Ml Syringe) 3 ml IVFLUSH QSHIFT [facility] Last Admin: 02/10/21 08:34 Dose: Not Given Documented by: NIRAV Non-Admin Reason: IV Running Valproic Acid (Valproic Acid (As Sodium Salt) 250 Mg/5 Ml Solution) 750 mg G-TUBE BID [facility] Last Admin: 02/10/21 08:33 Dose: 750 mg Documented by: NIRAV Zinc Oxide (Zinc Oxide 20% Ointment 28.35 Gm Tube) 1 appl TOPICAL QID PRN PRN Reason: BED RASH Labs CBC & Chem 7: 02/10/21 06:19 02/09/21 06:56 Labs: Laboratory Results - last 24 hr 02/10/21 02/10/21 06:19 10:55 MCV 86.2 MCH 27.6 MCHC 32.1 RDW 14.6 Plt Count 151 L MPV 11.1 Immature Gran % (Auto) 0.3 Neut % (Auto) 67.3 Lymph % (Auto) 21.7 [place] % (Auto) 9.1 Eos % (Auto) 1.5 Baso % (Auto) 0.1 Lymph # (Auto) 2.0 [place] # (Auto) 0.8 Eos # (Auto) 0.1 Baso # (Auto) 0.0 Abs Immat Gran (auto) 0.03 Absolute Neuts (auto) 6.2 Absolute Nucleated RBC 0.000 Nucleated RBC % (auto) 0.0 Influenza Type A (PCR) NEGATIVE Influenza Type B (PCR) NEGATIVE RSV RNA Qual (PCR) NEGATIVE SARS-CoV-2 RNA (RT-PCR) NEGATIVE Procedures Date of Service Date of Service: 02/10/21 Progress Note: A&P Assessment and plan (1) Dislodged gastrostomy tube: Status: Acute Assessment and Plan: Status post PEG tube placement Okay to use PEG tube Repeat COVID test reported to be negative Rest of management as per hospitalist service Seems to be doing well postop Fall Risk Details Current Medications: Current Medications Acetaminophen (Acetaminophen 325 Mg Tablet) 650 mg PO Q4H PRN PRN Reason: Pain, Mild (Pain Scale 1-3) Last Admin: 02/10/21 08:33 Dose: 650 mg Documented by: Atorvastatin Calcium (Atorvastatin Calcium 10 Mg Tablet) 10 mg G-TUBE BEDTIME [facility] Last Admin: 02/09/21 21:39 Dose: 10 mg Documented by: Atropine Sulfate (Atropine Sulfate 1 % Ophth Uyen 2 Ml Bottle) 2 drop SUBLINGUAL Q2H PRN PRN Reason: Secretions Ergocalciferol (Ergocalciferol (Vitamin D2) 1,250 Mcg Capsule) 1,250 mcg PO Q28D [facility] Last Admin: 02/08/21 07:29 Dose: Not Given Documented by: Famotidine (Famotidine 20 Mg Tablet) 40 mg G-TUBE DAILY@0900 [facility] Last Admin: 02/10/21 08:33 Dose: 40 mg Documented by: Ivermectin (Ivermectin 3 Mg Tablet) 18 mg PO Q14D [facility] Stop: 02/13/21 09:01 Morphine Sulfate (Morphine Sulfate 2 Mg/Ml Cartridge) 2 mg IVPUSH Q4H PRN; Protocol PRN Reason: Pain, Severe (Pain Scale 7-10) Pharmacy Consult (Consult Rx Perform Med Rec) 1 each MISCELLANE ONCE PRN PRN Reason: Consult order Sodium Chloride (0.9 % Sodium Chloride Flush 3 Ml Syringe) 3 ml IVFLUSH [facility] Last Admin: 02/10/21 08:32 Dose: Not Given Documented by: Sodium Chloride (0.9 % Sodium Chloride Flush 3 Ml Syringe) 3 ml IVFLUSH [facility] Last Admin: 02/10/21 08:34 Dose: Not Given Documented by: Valproic Acid (Valproic Acid (As Sodium Salt) 250 Mg/5 Ml Solution) 750 mg G-TUBE BID [facility] Last Admin: 02/10/21 08:33 Dose: 750 mg Documented by: Zinc Oxide (Zinc Oxide 20% Ointment 28.35 Gm Tube) 1 appl TOPICAL QID PRN PRN Reason: BED RASH Time Spent With Patient Time: Total time spent is greater than 50% in coordination of care (as documented) at patient's floor/unit and/or counseling patient: Time with patient: less than 15 minutes Quality Stroke Does the patient have a stroke diagnosis?: No VTE Prior VTE?: No VTE Risk Level:: Medical - moderate - high VTE Device Contraindication: N/A - Device Ordered VTE Drug Contraindication: Treatment Not Indicated
[2021-02-10 15:14] VITALS: PULSE 84; RESP 20; TEMP 36.3; O2SAT 95
--- NOTE | 2021-02-10 15:46 | HO.POSTANES ---
Post Anesthesia Evaluation Post Anesthesia Evaluation Vital Signs: Vital Signs Temp Pulse Resp BP Pulse Ox 02/10/21 15:14 97.4 F 84 20 95 02/10/21 12:00 97.4 F 65 20 157/88 H 100 02/10/21 07:45 97.6 F 72 20 126/93 H 97 Anesthesia: Monitored Mental Status: Awake (Non verbal) Pain Control: Satisfactory (Unable to assess but seems comfortable ) Nausea/Vomiting: None Hydration: Adequate Anesthesia-Related Issues: No Anes. Related Issues
--- NOTE | 2021-02-10 15:55 | P.PNIM_ITS ---
Subjective Subjective Date of Service: 02/10/21 Interval History: no acute issues overnight; resting comfortably. answers yes and no to simple questions Review of Systems denies chest pain Denies shortness Physical Exam Vital Signs: Vital Signs: Last Vital Signs Temp 97.4 F 02/10/21 15:14 Pulse 84 02/10/21 15:14 Resp 20 02/10/21 15:14 BP 157/88 H 02/10/21 12:00 Pulse Ox 95 02/10/21 15:14 BMI result Body Mass Index 28.5 Const: Other: no acute distress Resp: Other: clear to auscultation bilaterally no rales rhonchi or wheezes Cardio: Other: no S4; positive S1-S2; no S3 murmurs or gallops GI: Other: peg tube site clean dry and intact; abdomen soft nontender positive bowel sounds Extrem: Other: no edema bilaterally Objective Data Active Medications Acetaminophen (Acetaminophen 325 Mg Tablet) 650 mg PO Q4H PRN PRN Reason: Pain, Mild (Pain Scale 1-3) Last Admin: 02/10/21 08:33 Dose: 650 mg Documented by: NIRAV Atorvastatin Calcium (Atorvastatin Calcium 10 Mg Tablet) 10 mg G-TUBE BEDTIME [facility] Last Admin: 02/09/21 21:39 Dose: 10 mg Documented by: ARIEL Atropine Sulfate (Atropine Sulfate 1 % Ophth Uyen 2 Ml Bottle) 2 drop SUBLINGUAL Q2H PRN PRN Reason: Secretions Ergocalciferol (Ergocalciferol (Vitamin D2) 1,250 Mcg Capsule) 1,250 mcg PO Q28D [facility] Last Admin: 02/08/21 07:29 Dose: Not Given Documented by: ALMA ROSA Non-Admin Reason: NPO Famotidine (Famotidine 20 Mg Tablet) 40 mg G-TUBE DAILY@0900 [facility] Last Admin: 02/10/21 08:33 Dose: 40 mg Documented by: NIRAV Ivermectin (Ivermectin 3 Mg Tablet) 18 mg PO Q14D [facility] Stop: 02/13/21 09:01 Morphine Sulfate (Morphine Sulfate 2 Mg/Ml Cartridge) 2 mg IVPUSH Q4H PRN; Pr otocol PRN Reason: Pain, Severe (Pain Scale 7-10) Pharmacy Consult (Consult Rx Perform Med Rec) 1 each MISCELLANE ONCE PRN PRN Reason: Consult order Sodium Chloride (0.9 % Sodium Chloride Flush 3 Ml Syringe) 3 ml IVFLUSH QSHIFT [facility] Last Admin: 02/10/21 08:32 Dose: Not Given Documented by: NIRAV Non-Admin Reason: Duplicate Order Sodium Chloride (0.9 % Sodium Chloride Flush 3 Ml Syringe) 3 ml IVFLUSH QSHIFT [facility] Last Admin: 02/10/21 08:34 Dose: Not Given Documented by: NIRAV Non-Admin Reason: IV Running Valproic Acid (Valproic Acid (As Sodium Salt) 250 Mg/5 Ml Solution) 750 mg G- TUBE BID [facility] Last Admin: 02/10/21 08:33 Dose: 750 mg Documented by: NIRAV Zinc Oxide (Zinc Oxide 20% Ointment 28.35 Gm Tube) 1 appl TOPICAL QID PRN PRN Reason: BED RASH Labs CBC & Chem 7: 02/10/21 06:19 02/09/21 06:56 Labs: Laboratory Results - last 24 hr 02/10/21 02/10/21 06:19 10:55 MCV 86.2 MCH 27.6 MCHC 32.1 RDW 14.6 Plt Count 151 L MPV 11.1 Immature Gran % (Auto) 0.3 Neut % (Auto) 67.3 Lymph % (Auto) 21.7 [place] % (Auto) 9.1 Eos % (Auto) 1.5 Baso % (Auto) 0.1 Lymph # (Auto) 2.0 [place] # (Auto) 0.8 Eos # (Auto) 0.1 Baso # (Auto) 0.0 Abs Immat Gran (auto) 0.03 Absolute Neuts (auto) 6.2 Absolute Nucleated RBC 0.000 Nucleated RBC % (auto) 0.0 Influenza Type A (PCR) NEGATIVE Influenza Type B (PCR) NEGATIVE RSV RNA Qual (PCR) NEGATIVE SARS-CoV-2 RNA (RT-PCR) NEGATIVE Assessment and Plan (1) COVID-19: Status: Acute (2) Dislodged gastrostomy tube: Status: Acute Assessment and Plan: 65-year-old man admitted [facility] with [facility]omy tube dislodged /removed.? S/P PEG insertion ...doing well 1.Hypernatremia Resolved. Continue IV fluids as ordered. Check divalents/ creatinine a.m. 2.S/P PEG insertion Diet verified with SNF...weill start Osmolyte 1.5 50 ml/hr Check residuals q4hrs,..if tolerated goal 80ml/hr. 3.CHrionic Atrial fibrillation Rate control adequate 4.COVID-19. Asymptomatic. CHeck PCR 5.Alzheimer's dementia. STable DISPO of note will check PCR once patient medically stable from gtube perspective. If he is still positive he will need to stay at [facility] to quarantine for 10 [facility] Full code Quality Stroke Does the patient have a stroke diagnosis?: No VTE Prior VTE?: No VTE Risk Level:: Medical - moderate - high VTE Device Contraindication: N/A - Device Ordered VTE Drug Contraindication: Treatment Not Indicated
[2021-02-10] MEDS: 0.9 % Sodium Chloride Flush 3 ML SYRINGE IVFLUSH ×3 (17:20→20:14)
[2021-02-10 19:09] VITALS: BP 139/89; PULSE 80; RESP 20; TEMP 36.7; O2SAT 96
[2021-02-10] MEDS: Atorvastatin Calcium 10 MG TABLET G-TUBE (19:59)
[2021-02-10 23:56] VITALS: BP 137/93; PULSE 92; RESP 18; TEMP 37.3; O2SAT 95
[2021-02-11 03:26] VITALS: BP 144/83; PULSE 88; RESP 19; TEMP 38.1; O2SAT 98
[2021-02-11 03:46] VITALS: TEMP 37.6
[2021-02-11 07:49] VITALS: BP 142/90; PULSE 79; RESP 18; TEMP 37.3; O2SAT 95
[2021-02-11 11:02] VITALS: BP 140/63; PULSE 74; RESP 18; TEMP 37.1; O2SAT 98
[2021-02-11] MEDS: Famotidine 20 MG TABLET 40 MG G-TUBE (11:25)
[2021-02-11] MEDS: 0.9 % Sodium Chloride Flush 3 ML SYRINGE IVFLUSH (11:45)
--- NOTE | 2021-02-11 12:58 | PM.DS ---
DS: Providers Provider Date of Service: 02/11/21 Date of admission: 02/07/21 12:01 Primary care physician: Smita Modi MD Consults: 02/07/21 12:21 Consult to General Surgery Routine Consulting Provider: Jovan Scherer Reason for consultation: gtube out Has provider been notified: No DS: Diagnosis Discharge Diagnosis (1) COVID-19: Status: Acute (2) Dislodged gastrostomy tube: Status: Acute DS: Summary Hospital Course Hospital Course: 65-year-old man with history of Alzheimer's dementia presented from the long-term and was found to have his gastrostomy 2 dislodged.? Unfortunately the time frame is unknown with how long it was out for and replacement at the long-term was unsuccessful.? Unfortunately due to patient's dementia he is unable to answer any questions.? In the ER his sodium was noted to be elevated at 150, vital signs stable.? He received 500 mL of IV fluid.? He will be admitted for further management treatment of this dislodged gtube Hospital Course patient admitted to hospital; volume repletion with normalization of his sodium. he was seen in consultation by Dr. Scherer , on 02/09/2021 a PEG tube was placed successfully without complication. He was restarted on his feedings of Osmolite 1.5 at 80 mL an hour is tolerating them well. It this point he is medically stable for discharge back to SNF Time Spent with Patient Time attestation: Total time spent providing and/or coordinating discharge services: Discharge coordination time: Greater than 30 minutes Quality: Stroke Does the patient have a stroke diagnosis?: No Physical Exam Vital Signs: Vital Signs: Last Vital Signs Temp 98.7 F 02/11/21 11:02 Pulse 74 02/11/21 11:02 Resp 18 02/11/21 11:02 BP 140/63 H 02/11/21 11:02 Pulse Ox 98 02/11/21 11:02 BMI result Body Mass Index 28.5 Const: Other: no acute distress Resp: Other: clear to auscultation bilaterally no rales rhonchi or wheezes Cardio: Other: no S4; positive S1-S2; no S3 murmurs or gallops GI: Other: peg tube site clean dry and intact; abdomen soft nontender positive bowel sounds Extrem: Other: no edema bilaterally DS: Data Data Completed and Pending Completed studies during hospitalization [Text1]: Procedures Assistance with Respiratory Ventilation, 24-96 Consecutive Hours, Continuous Positive Airway Pressure (09/20/20) Insertion of Endotracheal Airway into Trachea, Via Natural or Artificial Opening (08/30/20) Insertion of Feeding Device into Stomach, Percutaneous Approach (08/30/20) Insertion of Infusion Device into Superior Vena Cava, Percutaneous Approach (08/30/20) Respiratory Ventilation, Greater than 96 Consecutive Hours (08/30/20) Discharge Plan Discharge Patient Disposition: Xfer Inpatient Rehab Fac Discharge Diagnosis: status post PEG tube insertion Referrals: Smita Modi MD [Primary Care Provider] - 1 Week Discharge Medications: Continued valproic acid (as sodium salt) 250 mg/5 mL solution 750 mg feeding tube BID 30 Days Qty: 900 RF: 0 Eliquis 5 mg tablet 5 mg feeding tube BID 30 Days Qty: 60 RF: 0 famotidine 40 mg Tablet 40 mg feeding tube DAILY@0900 Qty: 0 RF: 0 simvastatin 20 mg Tablet 20 mg feeding tube BEDTIME Qty: 0 RF: 0 aspirin 81 mg Tablet,Chewable 81 mg feeding tube DAILY@0900 Qty: 0 RF: 0 ergocalciferol (vitamin D2) [Vitamin D2] 1,250 mcg (50,000 unit) Capsule 1,250 mcg feeding tube Q28D RF: 0 hydrocortisone 5 mg capsule, sprinkle 10 mg PO TID Qty: 30 RF: 0 ivermectin 3 mg Tablet 18 mg PO Q14D RF: 0 acetaminophen 325 mg Tablet 325 mg feeding tube QID PRN (Reason: Pain) RF: 0 atropine 1 % Drops 2 drp SUBLINGUAL Q2H PRN (Reason: Secretions) RF: 0 menthol-zinc oxide [Risamine] 0.44-20.6 % Ointment 1 appl TOPICAL QID PRN (Reason: BED RASH) RF: 0 (DME) calcium alginate 4 X 4 Bandage TOPICAL RF: 0 Osmolite 1.2 Cristobal 0.06 gram-1.2 kcal/mL Liquid 84 ea feeding tube QSHIFT RF: 0 Discharge Orders: Discharge Order (Routine); Ordered 02/10/21 Ordered By: Steven Altamirano Diet: advance to usual diet Activity on Discharge: As tolerated Stand Alone Forms: Patient Portal Discharge page Care Plan Goals: continue plan as ordered Health Concerns: maintain PEG tube status Plan of Treatment: as ordered Assessment: improved
[2021-02-11 15:10] VITALS: BP 148/92; PULSE 86; RESP 20; TEMP 36.1; O2SAT 92
--- NOTE | 2021-02-11 16:01 | MHC.CM.PN ---
Addendum entered by Sri Sylvester 02/11/21 16:09: MARQUEZ RECEIVED A RETURN CALL FROM ROGERS SHE PROVIDED A FAX NUMBER TO PTS UNIT AT [facility] [phone] PTS COVID RESULTS AND DC SUMMARY WILL BE FAXED PRIOR TO HIS TRANSPORT SHE ALSO ASKED THAT PT BE TRANSPORTED AFTER 1900 HOURS THERE WOULD BE ANOTHER ASSISTANT ART DIRECTOR AVAILABLE AT THAT TIME. ROGERS:[phone] Original Note: PT IS CLEARED TO RETURN TO [facility] PENDING A SECOND NEGATIVE PCR COVID TEST. MARQUEZ CALLED ROGERS, THE BEAUTY THERAPIST LIAISON FOR THE SNF, AND INFORMED HER THE PT WOULD BE READY TO LEAVE LATER TODAY./ MARQUEZ REQUESTED A FAX NUMBER TO SEND THE COVID RESULTS TO. ROGERS INDICATED SHE DID NOT HAVE A NUMBER SO WOULD CALL T/W BACK. SHE ALSO ASKED THAT A NURSE TO NURSE REPORT BE CALLED IN USING THE MAIN SNF NUMBER. THAT INFO WAS RELAYED TO PTS NURSE. MARQUEZ CALLED PTS SISTER/GUARDIAN CHRISTEL ([phone]) AND INFORMED HER OF THE PENDING DC WELL SHE REPORTS BEING IN AGREEMENT WITH THE DC. MEDICARE RIGHTS WERE REVIEWED. PT WILL DC BACK TO [facility] THIS EVENING. TRANSPORT ARRANGED FOR 1800 HOURS MARQUEZ WILL ASK THE US TO FAX THE COVID RESULTS ONCE THEY ARE IN AND CANCEL TRANSPORT IF THEY ARE POSITIVE.
[2021-02-11 16:54] LABS: Influenza A PCR NEGATIVE (Negative); Influenza B PCR NEGATIVE (Negative); Resp Syncy Virus RNA Qual PCR NEGATIVE (Negative); SARS COV2 PCR INHOUSE NEGATIVE (Negative)
[2021-02-11 19:07] VITALS: PULSE 61; RESP 20; TEMP 36.8; O2SAT 99
[2021-02-11] MEDS: Atorvastatin Calcium 10 MG TABLET G-TUBE (19:58)
== END 2021-02-11 22:45 | DRG 919 ==
LOC: HO.ED 08:08 → HO.EDOVER 13:45 → HO.IMC 02-08 06:11
PROVIDERS: Surgery; Admitting Provider Nurse Practitioner Acute Care; Emergency Provider Emergency Medicine; PCP Internal Medicine; Visit Provider Hospitalist
PROC: 0DH63UZ Insertion of Feeding Device into Stomach, Percutaneous Approach (ICD-10-PCS; CPT 43246; principal; 2021-02-09 09:00)
DX: T85.528A Displacement of other gastrointestinal prosthetic devices, implants and grafts, initial encounter (principal); U07.1 COVID-19; E87.0 Hyperosmolality and hypernatremia; I48.20 Chronic atrial fibrillation, unspecified; G30.9 Alzheimer's disease, unspecified; R13.10 Dysphagia, unspecified; F02.80 Dementia in other diseases classified elsewhere, unspecified severity, without behavioral disturbance, psychotic disturbance, mood disturbance, and anxiety; E86.0 Dehydration; Z88.6 Allergy status to analgesic agent; Z79.01 Long term (current) use of anticoagulants; Z79.82 Long term (current) use of aspirin; Z79.899 Other long term (current) drug therapy
CPT/HCPCS: 0241U; 36415; 80048; 85025; 85027; 85610; 85730; 87635; 96360; 99024; 99285; 99499; J0690

== ENCOUNTER 2023-05-11 01:56 | Emergency (ER) | payer MEDICAID, SELFPAY ==
--- NOTE | ~2023-05-11 | XR_ITS ---
EXAMINATION: XR CHEST CLINICAL INFORMATION: Cough, congestion COMPARISON: 09/20/2020 TECHNIQUE: Frontal view of the chest was obtained. FINDINGS: Lung volumes are symmetric. No focal consolidation is seen. No evidence of pneumothorax, significant pleural effusion, or overt pulmonary edema. The cardiomediastinal contour is unremarkable. No acute osseous findings are seen. XR/XR chest 1V IMPRESSION: No acute cardiopulmonary findings.
[2023-05-11 02:15] VITALS: BP 106/69; PULSE 94; RESP 18; TEMP 36.1; O2SAT 99; BMI 26.3
[2023-05-11 02:20] VITALS: O2SAT 100
[2023-05-11 03:19] LABS: MANUAL DIFF FLAG NO
[2023-05-11 03:22] LABS: Eosinophils Absolute Auto 0.1 X10*3/uL (0.0-0.4); Eosinophils Percent Auto 1.3 % (0-4); Hematocrit 43.9 % (42.0-52.0); Hemoglobin 13.2 g/dl (14.0-18.0); Imm Gran Abs Auto 0.01 X10*3/uL (0.00-0.03); Imm Gran Pct Auto 0.2 % (0.0-0.4); Lymphocytes Absolute Auto 1.2 X10*3/uL (1.2-4.9); Lymphocytes Percent Auto 20.2 % (20-40); Mean Corpuscular HGB Conc 30.1 g/dl (31.0-36.0); Mean Corpuscular Hemoglobin 25.5 pg (27.0-33.0); Mean Corpuscular Volume 84.9 fL (80.0-98.0); Mean Platelet Volume 11.4 fL (9.4-12.4); Monocytes Absolute Auto 0.2 X10*3/uL (0.1-1.2); Monocytes Percent Auto 3.8 % (2-11); Neutrophils Absolute Auto 4.5 x10*3/uL (2.0-8.3); Neutrophils Percent Auto 74.5 % (45-73); Platelet Count 109 X10*3/uL (160-400); Red Blood Count 5.17 X10*6/uL (4.60-5.80); Red Cell Distribution Width 16.5 % (11.0-16.0)
[2023-05-11 03:33] LABS: COVID-19 Test Negative (Negative); IDNOW Serial# 08D9AD1C; IDNOW Serial# 152EDE1D; Influenza A Negative (Negative); Influenza B2 Negative (Negative)
[2023-05-11 03:38] LABS: Alanine Aminotransferase 12 U/L (0-40); Albumin Level 3.3 g/dL (3.5-5.0); Alkaline Phosphatase 97 U/L (39-117); Anion Gap 17 (12-20); Aspartate Amino Transferase 23 U/L (5-37); Bilirubin Direct 0.2 mg/dL (0.0-0.5); Bilirubin Total 0.5 mg/dL (0.0-1.0); Blood Urea Nitrogen 16 mg/dL (9-16); Calcium 9.4 mg/dL (8.4-10.2); Carbon Dioxide 28 mmol/L (22-29); Chloride 106 mmol/L (96-108); Creatinine Clr Calc Pharmacy 85.7; Estimated Glomerular Filt Rate > 60; Glucose Random 130 mg/dL (60-115); Potassium 3.6 mmol/L (3.3-5.1); Sodium 147 mmol/L (135-145); Total Protein 7.8 g/dL (6.5-8.0)
--- NOTE | 2023-05-11 03:44 | ED.GENADULT ---
HPI - General Adult General Chief complaint: Upper Respiratory Symptoms Stated complaint: COUGH sob Time Seen by Provider: 05/11/23 03:38 History of Present Illness HPI narrative: The patient is a 67-year-old male who lives at a local correction. Staff at the correction were concerned that the patient was increasingly coughing and congested today. He was sent to the emergency room for evaluation of the symptoms. The patient is nonverbal at baseline and is not able to give any history. Related Data Home Medications Medication Instructions Recorded Confirmed ergocalciferol (vitamin D2) 1,250 1,250 mcg feeding tube Q28D 09/20/20 02/07/21 mcg (50,000 unit) capsule (Vitamin D2) acetaminophen 325 mg tablet 325 mg feeding tube QID PRN Pain 02/07/21 02/07/21 atropine 1 % eye drops 2 drp sublingual Q2H PRN Secretions 02/07/21 02/07/21 calcium alginate 4 X 4 bandage 02/07/21 02/07/21 ivermectin 3 mg tablet 18 mg PO Q14D 02/07/21 02/07/21 menthol 0.44 %-zinc oxide 20.6 % 1 appl topical QID PRN BED RASH 02/07/21 02/07/21 topical ointment (Risamine) nutritional supplements 0.06 84 ea feeding tube QSHIFT 02/07/21 02/07/21 gram-1.2 kcal/mL oral liquid (Osmolite 1.2 Cristobal) Previous Rx's Medication Instructions Recorded apixaban 5 mg tablet (Eliquis) 5 mg feeding tube BID 30 days #60 09/17/20 tabs aspirin 81 mg chewable tablet 81 mg feeding tube DAILY@0900 #0 09/17/20 tabs famotidine 40 mg tablet 40 mg feeding tube DAILY@0900 #0 09/17/20 tabs simvastatin 20 mg tablet 20 mg feeding tube BEDTIME #0 tabs 09/17/20 valproic acid (as sodium salt) 250 750 mg (15 mL) feeding tube BID 30 09/17/20 mg/5 mL oral solution days #900 mL hydrocortisone 5 mg sprinkle 10 mg (2 x 5 mg) PO TID #30 caps 09/26/20 capsule Allergies Allergy/AdvReac Type Severity Reaction Status Date / Time atenolol Allergy Unknown Verified 05/11/23 02:15 duloxetine [From Cymbalta] Allergy Unknown Verified 05/11/23 02:15 ibuprofen Allergy Unknown Verified 05/11/23 02:15 levofloxacin [From Levaquin] Allergy Unknown Verified 05/11/23 02:15 Review of Systems Review of Systems: Yes Unobtainable due to mental status [facility] Past Medical History Medical History Glaucoma Alzheimer disease G tube feedings Dysphagia Deep vein thrombosis (DVT) Mood disorder Afib HTN (hypertension) Advanced dementia Social History Social History Household Members: Other Housing: [facility] Do you presently have visiting nurse or other home services: No Unable to assess alcohol history related to: Unable to respond Alcohol intake: unknown Comment: 1:1 Patient Tobacco Use Status: Tobacco use Unknown Smoked in Last 30 Days: No Use of substances other than those prescribed or required for medical reasons: No Advance Directives: No Advance Directives Date on File: 08/05/20 service: No (Incarcerated for 47 years) Current occupational status: retired Physical Exam ED Vital Signs: Vital Signs - 24 hr 05/11/23 02:15 05/11/23 02:20 05/11/23 04:27 Temperature 97 F Pulse Rate 94 99 Respiratory Rate 18 17 Blood Pressure 106/69 130/78 Pulse Oximetry 99 100 100 Oxygen Delivery Method Room Air Room Air Room Air 05/11/23 05:45 05/11/23 06:42 Temperature 98 F Pulse Rate 100 104 H Respiratory Rate 20 18 Blood Pressure 131/85 118/79 Pulse Oximetry 100 98 Oxygen Delivery Method Room Air Room Air BMI result Body Mass Index 26.3 Const Other: The patient is a well-developed 67-year-old who was sleeping. He did not really respond to verbal stimuli but I was told this was his baseline. He was not coughing HENMT Other: Face seemed symmetrical, mucous membranes moist Eyes Other: No scleral icterus, pupils round equal Neck Neck: Yes no JVD Resp Effort & Inspection: normal respiratory effort Auscultation: clear to auscultation bilaterally Cardio Rate: regular rate Rhythm: regular rhythm Heart sounds: S1 normal heart sound present and S2 normal heart sound present GI Other: The patient has a feeding tube. Abdomen seems soft and nontender. Skin Other: The skin was dry and unremarkable Neuro Other: The patient was sleeping. He moaned with gentle stimulation. He is apparently nonverbal at baseline. I suspect he is at his neurological baseline. Extrem Other: No peripheral edema. No calf asymmetry or tenderness. Lower legs seem somewhat atrophied. Medical Decision Making Medical Decision Making [facility] Narrative: The patient is a 67-year-old who was sent from his correction for evaluation of a cough and congestion according to the correction staff. Here he has a white count of 6000 with 75% neutrophils, an unremarkable basic metabolic panel, and a clear chest x-ray. He is nonverbal and this is apparently his baseline mental status. His nasal swab was negative for COVID and influenza. Given that he is afebrile with unremarkable vital signs, a clear chest x-ray, a normal white count I do not have a high suspicion for a significant acute process. I will send an expanded respiratory nasal panel but otherwise I think the patient may return to his correction. Lab Data 05/11/23 03:10 05/11/23 03:10 Labs: Lab Results 05/11/23 Range/Units 03:10 WBC 6.0 (4.8-10.8) X10*3/uL RBC 5.17 (4.60-5.80) X10*6/uL Hgb 13.2 L (14.0-18.0) g/dl Hct 43.9 (42.0-52.0) % MCV 84.9 (80.0-98.0) fL MCH 25.5 L (27.0-33.0) pg MCHC 30.1 L (31.0-36.0) g/dl RDW 16.5 H (11.0-16.0) % Plt Count 109 L D (160-400) X10*3/uL MPV 11.4 (9.4-12.4) fL Immature Gran % (Auto) 0.2 (0.0-0.4) % Neut % (Auto) 74.5 H (45-73) % Lymph % (Auto) 20.2 (20-40) % Meade % (Auto) 3.8 (2-11) % Eos % (Auto) 1.3 (0-4) % Baso % (Auto) 0.0 (0-2) % Lymph # (Auto) 1.2 (1.2-4.9) X10*3/uL Meade # (Auto) 0.2 (0.1-1.2) X10*3/uL Eos # (Auto) 0.1 (0.0-0.4) X10*3/uL Baso # (Auto) 0.0 (0.0-0.2) X10*3/uL Abs Immat Gran (auto) 0.01 (0.00-0.03) X10*3/uL Absolute Neuts (auto) 4.5 (2.0-8.3) x10*3/uL Absolute Nucleated RBC 0.000 (0.0-0.012) X10*3/uL Nucleated RBC % (auto) 0.0 (0.0-0.2) /100WBC Sodium 147 H (135-145) mmol/L Potassium 3.6 (3.3-5.1) mmol/L Chloride 106 (96-108) mmol/L Carbon Dioxide 28 (22-29) mmol/L Anion Gap 17 (12-20) BUN 16 (9-16) mg/dL Creatinine 0.93 (0.5-1.4) mg/dL Estim Creat Clear Calc 85.7 Estimated GFR > 60 Random Glucose 130 H (60-115) mg/dL Calcium 9.4 (8.4-10.2) mg/dL Total Bilirubin 0.5 (0.0-1.0) mg/dL Direct Bilirubin 0.2 (0.0-0.5) mg/dL AST 23 (5-37) U/L ALT 12 (0-40) U/L Alkaline Phosphatase 97 (39-117) U/L Total Protein 7.8 (6.5-8.0) g/dL Albumin 3.3 L (3.5-5.0) g/dL COVID-19 (MARBELLA) Negative (Negative) COVID-19 Clin Com See Note Influenza Type A (MISTY) Negative (Negative) Influenza Type B (MISTY) Negative (Negative) Influenza A & B Note See Note Discharge Plan Discharge Clinical Impression: Cough, Congestion of upper airway Patient Disposition: er [facility] Additional Instructions: Testing in the emergency room: Chest x-ray was negative. Viral swab for COVID and influenza is negative. White blood count was 6000 with an unremarkable differential. Oxygen saturation is 100% on room air. Overall the patient seems stable and I do not see an indication for any change in regimen. Can please continue to monitor his status and return to the emergency room if worse. Prescriptions: No Action valproic acid (as sodium salt) 250 mg/5 mL solution 750 mg feeding tube BID 30 Days Qty: 900 0RF Eliquis 5 mg tablet 5 mg feeding tube BID 30 Days Qty: 60 0RF famotidine 40 mg Tablet 40 mg feeding tube DAILY@0900 Qty: 0 0RF simvastatin 20 mg Tablet 20 mg feeding tube BEDTIME Qty: 0 0RF aspirin 81 mg Tablet,Chewable 81 mg feeding tube DAILY@0900 Qty: 0 0RF ergocalciferol (vitamin D2) [Vitamin D2] 1,250 mcg (50,000 unit) Capsule 1,250 mcg feeding tube Q28D hydrocortisone 5 mg capsule, sprinkle 10 mg PO TID Qty: 30 0RF ivermectin 3 mg Tablet 18 mg PO Q14D acetaminophen 325 mg Tablet 325 mg feeding tube QID PRN (Reason: Pain) atropine 1 % Drops 2 drp SUBLINGUAL Q2H PRN (Reason: Secretions) menthol-zinc oxide [Risamine] 0.44-20.6 % Ointment 1 appl TOPICAL QID PRN (Reason: BED RASH) (DME) calcium alginate 4 X 4 Bandage TOPICAL Rx Instructions: CLEASE LEFT AND RIGHT HEEL WITH NS. PAT DRY APPLY ALGINATE COVER AND BORDER GAUZE EVERY SHIFT. Osmolite 1.2 Cristobal 0.06 gram-1.2 kcal/mL Liquid 84 ea feeding tube QSHIFT Referrals: [facility] [Outside] (Cough and congestion) Interventions: ED Discharge Assessment Last Done: 05/11/23 06:43 Discharge Date/Time: 05/11/23 06:46
--- NOTE | 2023-05-11 03:45 | PC.NURSE ---
Staff at [facility] updated on pts pending d/c
[2023-05-11 04:27] VITALS: BP 130/78; PULSE 99; RESP 17; O2SAT 100
[2023-05-11 05:45] VITALS: BP 131/85; PULSE 100; RESP 20; O2SAT 100
[2023-05-11 06:42] VITALS: BP 118/79; PULSE 104; RESP 18; TEMP 36.6; O2SAT 98
[2023-05-11 11:51] LABS: Adenovirus PCR Not Detected (Not Detect.); Bordetella parapertussis PCR Not Detected (Not Detect.); Bordetella pertussis PCR Not Detected (Not Detect.); Chlamydia pneumoniae PCR Not Detected (Not Detect.); Coronavirus 229E PCR Not Detected (Not Detect.); Coronavirus HKU1 PCR Not Detected (Not Detect.); Coronavirus NL63 PCR Not Detected (Not Detect.); Coronavirus OC43 PCR Not Detected (Not Detect.); Human metapneumovirus PCR Not Detected (Not Detect.); Influenza A PCR Not Detected (Not Detect.); Influenza B PCR Not Detected (Not Detect.); Mycoplasma pneumoniae PCR Not Detected (Not Detect.); Parainfluenza 1 PCR Not Detected (Not Detect.); Parainfluenza 2 PCR Not Detected (Not Detect.); Parainfluenza 3 PCR Not Detected (Not Detect.); Parainfluenza 4 PCR Not Detected (Not Detect.); RSV PCR Not Detected (Not Detect.); Rhino/Enterovirus PCR Not Detected (Not Detect.)
[2023-05-11 12:04] LABS: SARS-CoV-2 PCR Not Detected (Not Detect.)
== END 2023-05-11 06:46 | disposition skilled nursing facility (03) ==
PROVIDERS: Emergency Provider Emergency Medicine
DX: R05.9 Cough, unspecified (principal); I10 Essential (primary) hypertension; F03.90 Unspecified dementia, unspecified severity, without behavioral disturbance, psychotic disturbance, mood disturbance, and anxiety; R09.89 Other specified symptoms and signs involving the circulatory and respiratory systems; Z11.52 Encounter for screening for COVID-19
CPT/HCPCS: 71045; 80048; 80076; 85025; 87502; 87633; 87635; 99284

== ENCOUNTER 2023-05-11 07:39 | Inpatient (IN) | payer MEDICAID, SELFPAY ==
[2023-05-11] VITALS (11 sets, daily range): BP systolic 110–145; BP diastolic 44–86; PULSE 79–105; RESP 18–19; TEMP 36.8–38.9; O2SAT 96–100; BMI 25.5
--- NOTE | ~2023-05-11 | US_ITS ---
EXAMINATION: US ABDOMEN LIMITED CLINICAL INFORMATION: Vomiting.. COMPARISON: None available. TECHNIQUE: Real-time imaging of the right upper quadrant abdominal viscera. FINDINGS: GALLBLADDER: There are multiple echogenic shadowing gallstones with mild wall thickening of 0.58 cm. No pericholecystic fluid collection seen. US/US abdomen limited IMPRESSION: Cholelithiasis with wall thickening suggestive of cholecystitis. Correlate with clinical exam
--- NOTE | ~2023-05-11 | CT_ITS ---
EXAMINATION: CT chest, abdomen and pelvis with IV contrast. CLINICAL INDICATIONS: Cough. COMPARISON: Chest x-ray 05/11/2023. TECHNIQUE: 5 mm thin axial and reformatted 3 mm thin sagittal coronal images of chest, abdomen and pelvis were obtained following oral Redicat and IV 85 m Omnipaque 350. DLP [id number]. This CT examination was performed using dose optimization technique as appropriate, variously including the following: Automated exposure control Adjustment of MA and/or KV according to patient size(this includes techniques or standardized protocols for targeted exams where dose is matched to indication/reason for exam; extremities or head. Use of iterative reconstruction techniques. FINDINGS: CHEST: LUNGS: There is patchy opacity seen in the posterior segment right upper lobe, lingula, superior segment both lower lobes and posterior basal segment suggestive multi lobar infiltrate. Pleura: There is minimal pleural thickening. Mediastinum: The thyroid lobes are symmetric and normal. The central trachea and bronchi are widely patent. The heart size and the great vessels are normal caliber. No pericardial effusion seen. Axilla: Unremarkable. The chest wall is grossly unremarkable. Osseous structures: No aggressive lytic or sclerotic process seen. There is mild ventral spondylosis mid dorsal spine. Abdomen and pelvis: Liver, ducts and gallbladder: The liver is normal size, contour and density. No focal lesion seen. There is no intrahepatic ductal dilatation. 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 Spleen: Unremarkable. Pancreas: Unremarkable. Adrenal glands: Unremarkable. Kidneys: Both kidneys are normal size, shape and position. No radiopaque renal calculi or hydronephrosis seen. There is no perinephric stranding. Lymphovascular structures: Abdominal aorta is normal caliber. No retroperitoneal lymph nodes or mass seen. GI tract: There is scattered stool and gas seen throughout the colon without any significant stenosis distention. The small bowel loops are normal caliber. Appendix is not visualized. No inflammatory process seen. There is no free fluid. There is midline anterior abdominal wall gastrostomy tube in place Abdominal wall: Unremarkable. Pelvis: There is no free air or free fluid. The prostate gland is mildly prominent with central gland calcification. Osseous structures: There is mild degenerative disc changes L3-L4 disc level with vacuum disc phenomena. Mild posterior spondylosis seen L1-L2, L2-L3, L3-L4 disc level. No aggressive lytic or sclerotic process seen. There is bilateral slightly greater L5-S1 facet joint arthropathy. 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 . CT/CT abdomen pelvis w IV con IMPRESSION: Multi lobar infiltrates Porcelain gallbladder. Mild constipation. Mild prostate enlargement Gastrostomy tube and right hip prosthesis are noted.
--- NOTE | 2023-05-11 08:08 | ED_ITS ---
HPI - Nausea/Vomiting/Diarrhea General Chief complaint: General Medical Stated complaint: VOMITING,COUGH,SEEN THIS AM,FROM SNF PER EMS Time Seen by Provider: 05/11/23 07:56 Source: EMS and other Mode of arrival: EMS History of Present Illness HPI Narrative: 67-year-old male who is brought in by EMS, baseline nonverbal and has PEG tube, brought in from facility with staff complaints of patient is noted be vomiting. Related Data Home Medications Medication Instructions Recorded Confirmed ergocalciferol (vitamin D2) 1,250 1,250 mcg feeding tube Q28D 09/20/20 02/07/21 mcg (50,000 unit) capsule (Vitamin D2) acetaminophen 325 mg tablet 325 mg feeding tube QID PRN Pain 02/07/21 02/07/21 atropine 1 % eye drops 2 drp sublingual Q2H PRN Secretions 02/07/21 02/07/21 calcium alginate 4 X 4 bandage 02/07/21 02/07/21 ivermectin 3 mg tablet 18 mg PO Q14D 02/07/21 02/07/21 menthol 0.44 %-zinc oxide 20.6 % 1 appl topical QID PRN BED RASH 02/07/21 02/07/21 topical ointment (Risamine) nutritional supplements 0.06 84 ea feeding tube QSHIFT 02/07/21 02/07/21 gram-1.2 kcal/mL oral liquid (Osmolite 1.2 Cristobal) Previous Rx's Medication Instructions Recorded apixaban 5 mg tablet (Eliquis) 5 mg feeding tube BID 30 days #60 09/17/20 tabs aspirin 81 mg chewable tablet 81 mg feeding tube DAILY@0900 #0 09/17/20 tabs famotidine 40 mg tablet 40 mg feeding tube DAILY@0900 #0 09/17/20 tabs simvastatin 20 mg tablet 20 mg feeding tube BEDTIME #0 tabs 09/17/20 valproic acid (as sodium salt) 250 750 mg (15 mL) feeding tube BID 30 09/17/20 mg/5 mL oral solution days #900 mL hydrocortisone 5 mg sprinkle 10 mg (2 x 5 mg) PO TID #30 caps 09/26/20 capsule Allergies Allergy/AdvReac Type Severity Reaction Status Date / Time atenolol Allergy Unknown Verified 05/11/23 02:15 duloxetine [From Cymbalta] Allergy Unknown Verified 05/11/23 02:15 ibuprofen Allergy Unknown Verified 05/11/23 02:15 levofloxacin [From Levaquin] Allergy Unknown Verified 05/11/23 02:15 Review of Systems 2 Review of Systems: Pertinent positives and negatives as stated in [facility] Past Medical History Source: nursing notes reviewed Medical History Glaucoma Alzheimer disease G tube feedings Dysphagia Deep vein thrombosis (DVT) Mood disorder Afib HTN (hypertension) Advanced dementia Social History Social History Household Members: Other Housing: [facility] Do you presently have visiting nurse or other home services: No Unable to assess alcohol history related to: Unable to respond Alcohol intake: unknown Comment: 1:1 Patient Tobacco Use Status: Tobacco use Unknown Smoked in Last 30 Days: No Use of substances other than those prescribed or required for medical reasons: No Advance Directives: No Advance Directives Date on File: 08/05/20 service: No (Incarcerated for 47 years) Current occupational status: retired Physical Exam 2 Vital Signs: Vital Signs: Last Vital Signs Temp 102.1 F H 05/11/23 08:26 Pulse 98 05/11/23 09:20 Resp 18 05/11/23 09:20 BP 110/66 05/11/23 09:20 Pulse Ox 97 05/11/23 09:20 O2 Del Method Room Air 05/11/23 09:20 BMI result Body Mass Index 25.5 VITAL SIGNS: Reviewed. GENERAL: Well developed, well nourished, in no acute distress. HEAD: Normocephalic/atraumatic EYES: PERRLA, EOMI EARS: Ext canals without abnormality NOSE: Nares patent bilateral OROPHARYNX: no oral lesions noted, posterior pharynx clear NECK: Supple, no adenopathy LUNGS: Normal breath sounds. No adventitious sounds or accessory muscle use. CARDIOVASCULAR: Regular rate and rhythm without noted murmurs ABDOMEN: Soft, expresses pain on palpation diffusely, no rebound, non-distended with bowel sounds. MUSCULOSKELETAL: No tenderness, deformities, or effusions noted on gross inspection. EXTREMITIES: No cyanosis, clubbing or edema. SKIN: Inspection of the skin reveals no rashes NEUROLOGIC: Drowsy and oriented x 1. Strength and sensation to light touch were grossly intact x 4. Medications Administered Generic Name Dose Route Start Last Admin Trade Name Freq PRN Reason Stop Dose Admin Iohexol 100 ml 05/11/23 10:18 05/11/23 10:18 Iohexol 350 Mg/Ml 100 Ml Infus..Btl IV 05/11/23 10:19 85 ml ONCE ONE Administration Discontinued Medications Generic Name Dose Route Start Last Admin Trade Name Freq PRN Reason Stop Dose Admin Acetaminophen 650 mg 05/11/23 08:56 05/11/23 09:20 Acetaminophen Supp 650 Mg Supp.Rect NM 05/11/23 08:57 650 mg ONCE ONE Administration Sodium Chloride 1,000 mls @ 999 mls/hr 05/11/23 08:15 05/11/23 09:00 Ns IV 05/11/23 09:15 Infused .Q1H1M ARPIT Infusion Piperacillin Sod/Tazobactam 50 mls @ 100 mls/hr 05/11/23 08:05 05/11/23 09:20 Sod 3.375 gm/ Sodium Chloride IV 05/11/23 08:34 Infused ONCE ONE Infusion Sodium Chloride 2,493 mls @ 2,493 mls/hr 05/11/23 08:53 05/11/23 09:04 Ns 30 ml/kg infuse over 1 hr (2493 ml) 05/11/23 09:52 2,493 mls/hr IV Administration .Q1H STA Medical Decision Making Medical Decision Making [facility] Narrative: 0805: 67-year-old male with history and clinical presentation, DDX: Pneumonia, obstruction, viral illness felt to be less likely as recent testing within the past 24 hours negative, possible urinary tract infection 0850: Informed by lab the patient's lactic acid is >5 and will start on ED sepsis fluids 0950: Patient re-evaluated, vital signs reviewed, patient's status reviewed and he remains mildly tachycardic with temperature down trending, otherwise oxygenating well and blood pressure is stable. I reviewed all investigations and hematologic indices negative for leukocytosis but there is a significant left shift and a stable normocytic anemia with chronically stable thrombocytopenia. Coagulation studies her chronically stable and elevated. Chemistry indices are not consistent with an YARELIS or electrolyte derangement but there is a mild elevation of sodium, lactic acid is elevated to 5.7 as mentioned above and patient received sepsis fluids in his pending 2nd lactic acid. Liver enzymes are without derangement and urinalysis is not consistent with UTI or hematuria. My preliminary review CT scan chest/abdomen/pelvis is only notable at this time for bilateral pneumonia for which patient has already received antibiotics and is not currently hypoxic. 1021: I discussed the case with inpatient hospitalist to arrange for admission for severe sepsis secondary to bilateral pneumonia. Differential Diagnosis Differential Diagnoses: The differential diagnosis associated with the presentation includes Please see the discussion above Admission/Observation Consideration of admission/observation: Escalation of care including admission/observation considered Please see the discussion above Consult Healthcare Provider Management of the patient was discussed with: Hospitalist Please see the discussion above Lab Data MDM Lab Attestation statement: I reviewed the patient's lab results. Please see the discussion above 05/11/23 08:22 05/11/23 08:22 Labs: Lab Results 05/11/23 05/11/23 Range/Units 08:22 09:22 WBC 6.0 (4.8-10.8) X10*3/uL RBC 5.03 (4.60-5.80) X10*6/uL Hgb 12.8 L (14.0-18.0) g/dl Hct 42.9 (42.0-52.0) % MCV 85.3 (80.0-98.0) fL MCH 25.4 L (27.0-33.0) pg MCHC 29.8 L (31.0-36.0) g/dl RDW 16.6 H (11.0-16.0) % Plt Count 106 L (160-400) X10*3/uL MPV 11.2 (9.4-12.4) fL Immature Gran % (Auto) 0.3 (0.0-0.4) % Neut % (Auto) 80.8 H (45-73) % Lymph % (Auto) 8.6 L (20-40) % Bath % (Auto) 9.6 (2-11) % Eos % (Auto) 0.5 (0-4) % Baso % (Auto) 0.2 (0-2) % Lymph # (Auto) 0.5 L (1.2-4.9) X10*3/uL Bath # (Auto) 0.6 (0.1-1.2) X10*3/uL Eos # (Auto) 0.0 (0.0-0.4) X10*3/uL Baso # (Auto) 0.0 (0.0-0.2) X10*3/uL Abs Immat Gran (auto) 0.02 (0.00-0.03) X10*3/uL Absolute Neuts (auto) 4.8 (2.0-8.3) x10*3/uL Absolute Nucleated RBC 0.000 (0.0-0.012) X10*3/uL Nucleated RBC % (auto) 0.0 (0.0-0.2) /100WBC PT 14.7 H (11.1-13.3) SEC INR 1.2 H (0.9-1.1) Sodium 146 H (135-145) mmol/L Potassium 3.3 (3.3-5.1) mmol/L Chloride 108 (96-108) mmol/L Carbon Dioxide 30 H (22-29) mmol/L Anion Gap 11 L (12-20) BUN 18 H (9-16) mg/dL Creatinine 1.12 (0.5-1.4) mg/dL Estim Creat Clear Calc 69.0 Estimated GFR > 60 Random Glucose 104 (60-115) mg/dL Lactic Acid 5.7 H* (0.5-2.0) mmol/L Calcium 9.4 (8.4-10.2) mg/dL Total Bilirubin 0.6 (0.0-1.0) mg/dL AST 24 (5-37) U/L ALT 12 (0-40) U/L Alkaline Phosphatase 93 (39-117) U/L Total Protein 7.5 (6.5-8.0) g/dL Albumin 3.2 L (3.5-5.0) g/dL Urine Color Dark Yellow Urine Appearance Clear Urine pH 8.0 (5.0-9.0) Ur Specific Davilla 1.015 (1.005-1.025) Urine Protein Trace (Neg-Trace) mg/dL Urine Glucose (UA) Negative (Negative) mg/dL Urine Ketones Negative (Negative) mg/dL Urine Blood Negative (Negative) Urine Nitrite Negative (Negative) Ur Leukocyte Esterase Trace H (Negative) Urine RBC 0-2 (0-2) /HPF Urine WBC 0-5 (0-5) /HPF Ur Squamous Epith Cells 0-2 (0-2) /HPF Urine Bacteria None Seen (None Seen) Hyaline Casts 0-2 (0-2) /LPF Radiology Impression Discussion of test interpretation with radiology: I have reviewed the radiologist's reading. Radiologist Impression: Please see the discussion above External Record Review External record reviewed: Outpatient record, Prior outpatient labs and Prior outpatient radiology Chronic Conditions Chronic anticoagulation Critical Care Time Critical Care Time Critical Care Time: Yes Total Critical Care Time: 60 Attestation: I personally attest to this time spent taking care of the patient. Discharge Plan Discharge Clinical Impression: Severe sepsis, Bilateral pneumonia Patient Disposition: Admitted As Inpatient
[2023-05-11] MEDS: 0.9 % Sodium Chloride 1,000 ML 999 ML IV (08:25)
[2023-05-11 08:26] LABS: MANUAL DIFF FLAG NO
[2023-05-11 08:30] LABS: Basophils Percent Auto 0.2 % (0-2); Eosinophils Percent Auto 0.5 % (0-4); Hematocrit 42.9 % (42.0-52.0); Hemoglobin 12.8 g/dl (14.0-18.0); Imm Gran Abs Auto 0.02 X10*3/uL (0.00-0.03); Imm Gran Pct Auto 0.3 % (0.0-0.4); Lymphocytes Absolute Auto 0.5 X10*3/uL (1.2-4.9); Lymphocytes Percent Auto 8.6 % (20-40); Mean Corpuscular HGB Conc 29.8 g/dl (31.0-36.0); Mean Corpuscular Hemoglobin 25.4 pg (27.0-33.0); Mean Corpuscular Volume 85.3 fL (80.0-98.0); Mean Platelet Volume 11.2 fL (9.4-12.4); Monocytes Absolute Auto 0.6 X10*3/uL (0.1-1.2); Monocytes Percent Auto 9.6 % (2-11); Neutrophils Absolute Auto 4.8 x10*3/uL (2.0-8.3); Neutrophils Percent Auto 80.8 % (45-73); Platelet Count 106 X10*3/uL (160-400); Red Blood Count 5.03 X10*6/uL (4.60-5.80); Red Cell Distribution Width 16.6 % (11.0-16.0)
--- NOTE | 2023-05-11 08:35 | PC.NURSE ---
Patient brought back by EMS after vomiting while being transferred back to [facility]. Upon arrival patient with small amount of vomit on hospital gown. Patient non verbal moaning. Mouth suctioned for small amount of yellow flem. rectal temp 102.1 provider aware and sepsis protocol initiated.
[2023-05-11 08:38] LABS: INTERNATIONAL NORM RATIO 1.2 (0.9-1.1); Prothrombin Time 14.7 SEC (11.1-13.3)
[2023-05-11 08:45] LABS: Alanine Aminotransferase 12 U/L (0-40); Albumin Level 3.2 g/dL (3.5-5.0); Alkaline Phosphatase 93 U/L (39-117); Anion Gap 11 (12-20); Aspartate Amino Transferase 24 U/L (5-37); Bilirubin Total 0.6 mg/dL (0.0-1.0); Blood Urea Nitrogen 18 mg/dL (9-16); Calcium 9.4 mg/dL (8.4-10.2); Carbon Dioxide 30 mmol/L (22-29); Chloride 108 mmol/L (96-108); Estimated Glomerular Filt Rate > 60; Glucose Random 104 mg/dL (60-115); Potassium 3.3 mmol/L (3.3-5.1); Sodium 146 mmol/L (135-145); Total Protein 7.5 g/dL (6.5-8.0)
[2023-05-11] MEDS: Piperacillin Sodium/Tazobactam 3.375 GM in 0.9 % Sodium Chloride 50 ML IV (08:45)
[2023-05-11 08:51] LABS: Lactic Acid 5.7 mmol/L (0.5-2.0)
--- NOTE | 2023-05-11 09:04 | PC.NURSE ---
Sepsis fluids started at 8:55am, unable to chart d/t computers not working. Maintenance fluids running prior to sepsis fluids being started discontinued
[2023-05-11] MEDS: Acetaminophen Supp 650 MG SUPP.RECT PR (09:20)
[2023-05-11 09:28] LABS: Appearance Urine Clear; Color Urine Dark Yellow; Glucose Urine UA Negative (Negative); Leukocyte Esterase Urine Trace (Negative); Nitrite Urine Negative (Negative); Specific Gravity - Urine 1.015 (1.005-1.025); UMIC TRIGGER UACC YES; Urine Blood Negative (Negative); Urine Ketones Negative (Negative); Urine Protein Trace mg/dL (Neg-Trace)
[2023-05-11 09:42] LABS: Bacteria Urine None Seen (None Seen); Hyaline Casts Urine 0-2 /LPF (0-2); RBC Urine 0-2 /HPF (0-2); Squamous Epithelial Cell Urine 0-2 /HPF (0-2); WBC Urine 0-5 /HPF (0-5)
[2023-05-11] MEDS: iohexoL 350 MG/ML 100 ML INFUS..BTL IV (10:18)
[2023-05-11 10:25] LABS: Reflex Lactate? Lactic Acid Added
--- NOTE | 2023-05-11 11:29 | P.HPHOSP_ITS ---
History of Present Illness Date of Service: 05/11/23 Attending physician on admission: Dayton Brown Chief Complaint: Vomiting, cough Pt is a 67-year-old female with a PMH significant for?Alzheimer's dementia, paroxysmal AFib on Eliquis, HTN, among others who presents to the ED from [facility] for evaluation of vomiting and cough since earlier this morning. Patient is primarily nonverbal at baseline and currently unarousable and thus incapable of providing HPI which instead obtained from chart, provider review, and staff at [facility]. Patient originally presented to the ED earlier this morning when staff at [facility] concern patient increasing cough congestion. Initial workup at ED revealed normal white count, unremarkable BMP, clear CXR, and testing negative for COVID and flu. Patient was also afebrile with vitals WNL and patient was sent back to facility. Staff at facility report when patient arrived pack at nursing he immediately started vomiting and had difficulty breathing. EMS had not even left by this time in the immediately brought him back to the ED for further evaluation. In the ED pt was febrile up to 102.1, tachycardic up to 105, with 1 episode of soft BP of 116/44, satting at 97% on RA. Labs were significant for lactic acid of 5.7 with repeat 4.2, otherwise grossly unremarkable. UA negative for UTI. Respiratory panel negative. Was given a CTA of chest which found multi lobular infiltrates. CT of abdomen and pelvis found new porcelain gallbladder, as well as mild constipation and mild prostate without acute findings, though did showed mild constipation mouth prostate enlargement. Pt was treated with IVF, Zosyn, and acetaminophen. Pt will be admitted to the hospital for treatment and further evaluation of aspiration pneumonia with sepsis. Review of Systems 2 Review of Systems: Unable to obtain due to patient's mentation [facility] Medical History Glaucoma Alzheimer disease G tube feedings Dysphagia Deep vein thrombosis (DVT) Mood disorder Afib HTN (hypertension) Advanced dementia Social History Household Members: Other Housing: [facility] Do you presently have visiting nurse or other home services: No Unable to assess alcohol history related to: Unable to respond Alcohol intake: unknown Comment: 1:1 Patient Tobacco Use Status: Tobacco use Unknown Smoked in Last 30 Days: No Use of substances other than those prescribed or required for medical reasons: No Advance Directives: No Advance Directives Date on File: 08/05/20 service: No (Incarcerated for 47 years) Current occupational status: retired Meds Allergies Allergy/AdvReac Type Severity Reaction Status Date / Time atenolol Allergy Unknown Verified 05/11/23 02:15 duloxetine [From Cymbalta] Allergy Unknown Verified 05/11/23 02:15 ibuprofen Allergy Unknown Verified 05/11/23 02:15 levofloxacin [From Levaquin] Allergy Unknown Verified 05/11/23 02:15 Active Medications: Current Medications Acetaminophen (Acetaminophen 325 Mg Tablet) 650 mg PO Q6H PRN PRN Reason: Pain, Mild (Pain Scale 1-3) Acetaminophen (Acetaminophen Supp 650 Mg Supp.Rect) 650 mg [place] Q6H PRN PRN Reason: Pain, Mild (Pain Scale 1-3) Ampicillin Sodium/Sulbactam (Sodium 3 gm/ Sodium Chloride) 100 mls @ 200 mls/hr IV Q6H [facility] Melatonin (Melatonin 3 Mg Tablet) 6 mg PO BEDTIME PRN PRN Reason: Insomnia Ondansetron HCl (Ondansetron Hcl 4 Mg/2 Ml Vial) 4 mg IVPUSH Q8H PRN PRN Reason: Nausea and Vomiting Sodium Chloride (0.9 % Sodium Chloride Flush 3 Ml Syringe) 3 ml IVFLUSH QSHIFT [facility] Home Medications Medication Instructions Recorded Confirmed Last Taken Type atropine 1 % eye drops 2 drp sublingual Q2H PRN Secretions 02/07/21 05/11/23 Unknown History calcium alginate 4 X 4 bandage 02/07/21 02/07/21 Unknown History nutritional supplements 0.06 See Rx Instructions .Route .COMPLEX 02/07/21 05/11/23 Unknown History gram-1.2 kcal/mL oral liquid (Osmolite 1.2 Cristobal) acetaminophen 160 mg/5 mL oral 640 mg PO QID PRN Fever Or Pain 05/11/23 05/11/23 Unknown History liquid acetaminophen 650 mg rectal 650 mg NJ Q6H PRN Fever Or Pain 05/11/23 05/11/23 Unknown History suppository amino ac-protein hydro-whey 1 ea feeding tube DAILY 05/11/23 05/11/23 Unknown History protein 15 gram-100 kcal/30 mL oral liquid (ProSource Plus) arginine 7 gram-glutamine 7 1 ea PO BID 05/11/23 05/11/23 Unknown History gram-calcium HMB 1.5 gram oral powder pack (Chandler) bisacodyl 10 mg rectal suppository 10 mg NJ DAILY PRN Constipation 05/11/23 05/11/23 Unknown History cholecalciferol (vitamin D3) 125 1,250 mcg feeding tube Q28D 05/11/23 05/11/23 Unknown History mcg (5,000 unit) tablet (Vitamin D3) docusate sodium 50 mg/5 mL oral 100 mg feeding tube BID 05/11/23 05/11/23 Unknown History liquid escitalopram oxalate 20 mg tablet 20 mg feeding tube BEDTIME 05/11/23 05/11/23 Unknown History magnesium hydroxide 400 mg/5 mL 30 ml PO DAILY PRN Constipation 05/11/23 05/11/23 Unknown History oral suspension (Milk of Magnesia) midodrine 5 mg tablet 5 mg PO TID PRN low SBP 05/11/23 05/11/23 Unknown History oxycodone 5 mg tablet 2.5 mg feeding tube BID PRN Severe 05/11/23 05/11/23 Unknown History Pain (Scale Score 7-10) polyethylene glycol 3350 17 gram 17 g feeding tube DAILY 05/11/23 05/11/23 Unknown History oral powder packet (Miralax) sennosides 8.8 mg/5 mL oral syrup 10 ml PO BID 05/11/23 05/11/23 Unknown History (senna) simvastatin 20 mg tablet 20 mg feeding tube DAILY 05/11/23 05/11/23 Unknown History trazodone 50 mg tablet 25 mg feeding tube BID 05/11/23 05/11/23 Unknown History valproic acid (as sodium salt) 250 1,000 mg feeding tube BEDTIME 05/11/23 05/11/23 Unknown History mg/5 mL oral solution valproic acid (as sodium salt) 250 750 mg feeding tube DAILY 05/11/23 05/11/23 Unknown History mg/5 mL oral solution Physical Exam 2 Vital Signs and Narrative: Vital Signs: Last Vital Signs Temp 99 F 05/11/23 11:27 Pulse 96 05/11/23 11:25 Resp 18 05/11/23 11:25 BP 116/44 L 05/11/23 11:25 Pulse Ox 96 05/11/23 11:25 O2 Del Method Room Air 05/11/23 11:25 BMI result Body Mass Index 25.5 Limited due to pt's mentation General: Obtunded, not arousable to verbal or noxious stimuli, no acute distress Resp: Difficult to assess as patient is snoring CVS: S1, S2, RRR GI: +BS, NT, no distention Skin: Warm, dry Neuro: Motor grossly intact bilaterally Extremities: No edema Results Labs 05/11/23 08:22 05/11/23 08:22 Labs: Laboratory Results - last 24 hr 05/11/23 05/11/23 08:22 09:22 MCV 85.3 MCH 25.4 L MCHC 29.8 L RDW 16.6 H Plt Count 106 L MPV 11.2 Immature Gran % (Auto) 0.3 Neut % (Auto) 80.8 H Lymph % (Auto) 8.6 L [place] % (Auto) 9.6 Eos % (Auto) 0.5 Baso % (Auto) 0.2 Lymph # (Auto) 0.5 L [place] # (Auto) 0.6 Eos # (Auto) 0.0 Baso # (Auto) 0.0 Abs Immat Gran (auto) 0.02 Absolute Neuts (auto) 4.8 Absolute Nucleated RBC 0.000 Nucleated RBC % (auto) 0.0 PT 14.7 H INR 1.2 H Anion Gap 11 L Estim Creat Clear Calc 69.0 Estimated GFR > 60 Random Glucose 104 Lactic Acid 5.7 H* Calcium 9.4 Total Bilirubin 0.6 AST 24 ALT 12 Alkaline Phosphatase 93 Total Protein 7.5 Albumin 3.2 L Urine Color Dark Yellow Urine Appearance Clear Urine pH 8.0 Ur Specific [place] 1.015 Urine Protein Trace Urine Glucose (UA) Negative Urine Ketones Negative Urine Blood Negative Urine Nitrite Negative Ur Leukocyte Esterase Trace H Urine RBC 0-2 Urine WBC 0-5 Ur Squamous Epith Cells 0-2 Urine Bacteria None Seen Hyaline Casts 0-2 Imaging Radiologist's Impressions: Impressions Abdomen/Pelvis CT 05/11/23 10:16 IMPRESSION: Multi lobar infiltrates Porcelain gallbladder. Mild constipation. Mild prostate enlargement Gastrostomy tube and right hip prosthesis are noted. Chest CT 05/11/23 10:16 IMPRESSION: Multi lobar infiltrates Porcelain gallbladder. Mild constipation. Mild prostate enlargement Gastrostomy tube and right hip prosthesis are noted. Assessment and Plan (1) Porcelain gallbladder: Status: Acute (2) Aspiration pneumonia: Status: Resolved Plan Pt is a 67-year-old female with a PMH significant for?Alzheimer's dementia, paroxysmal AFib on Eliquis, HTN, among others who presents to the ED from [facility] for evaluation of vomiting and cough since earlier this morning. Pt will be admitted to the hospital for treatment and further evaluation of aspiration pneumonia with sepsis. Aspiration pneumonia with sepsis Patient with increased cough, congestion at SNF; witnessed episodes of vomiting with labored breathing this morning Patient meets sepsis criteria: Fever, tachycardia; lactic acid 5.7 with repeat 4.2 Patient treated with IVF and started on broad-spectrum antibiotics in the ED Will treat with Zosyn, started 05/11/2023 Monitor respiratory status Porcelain gallbladder CT of abdomen pelvis showed nondistended calcified wall gallbladder, new since last abdominal CT on 09/20/2020 Can not get ROS from patient though abdominal exam appears benign General surgery consult Paroxysmal AFib Continue Eliquis Orthostatic hypotension Continue midodrine HLD Continue statin Dementia/mood disorder Continue home meds Diet Patient with PEG tube in place Will use Osmolite 1.5 Nutrition consult Full Code Attending:?Dr. Brown DVT Prophylaxis: On Eliquis Pt will require a hospitalization of at least two nights for treatment of?aspiration pneumonia with sepsis. Given patient's significant comorbidities including advanced dementia, dysphagia, and be nonverbal at baseline, patient required hospitalization for administration IV antibiotics and close monitoring of labs and respiratory status. Quality Stroke Does the patient have a stroke diagnosis?: No VTE Prior VTE?: No VTE Risk Level:: Medical - moderate - high VTE Device Contraindication: Treatment Not Indicated VTE Drug Contraindication: N/A - Med Ordered
--- NOTE | 2023-05-11 11:47 | PHA.MEDREC ---
Pharmacy Consult ? Medication Reconciliation Pharmacy has completed the medication reconciliation. List from [facility].
--- NOTE | 2023-05-11 11:58 | PC.NURSE ---
Vss, bauman cath draining clear yellow urine. No s/s of any pain or discomfort. ultrasound at bedside
[2023-05-11 12:17] LABS: ~Lactic Acid-LAB USE ONLY 4.2 mmol/L (0.5-2.0)
--- NOTE | 2023-05-11 12:54 | PC.NURSE ---
Pharmacy called to re time abt
[2023-05-11 13:54] LABS: Reflex Lactate? 2 Y
--- NOTE | 2023-05-11 13:58 | P.CONGS_ITS ---
History of Present Illness Consult details Consult date: 05/11/23 Narrative: 67-year-old male, nonverbal, with advanced dementia, [facility] earlier today because of cough and congestion. He was actually discharged from the emergency room earlier after evaluation but as soon as he went back to the [facility], he was noted to have vomited and had a fever so he was sent back to the ER immediately. He underwent workup in the ER which showed an elevated lactic acid which improved with hydration. He had a CAT scan of the chest and abdomen showing multilobar infiltrates, along with porcelain gallbladder I was therefore consulted The patient is nonverbal at baseline. He seems to be bed-bound as well with his to have advanced dementia. He has a PEG tube in place for nutrition. He does not provide any history at this time. He does not open his eyes but grimaces with sternal rub Review of Systems 2 Review of Systems: Unavailable due to the patient's baseline dementia and mental status Constitutional: Constitutional: Reports fever(s) PMFSH Past Medical History Medical History Glaucoma Alzheimer disease G tube feedings Dysphagia Deep vein thrombosis (DVT) Mood disorder Afib HTN (hypertension) Advanced dementia Social History Social History Household Members: Unknown / Unable to assess Housing: Unknown / Unable to assess Do you presently have visiting nurse or other home services: No (unknown) Unable to assess alcohol history related to: Unable to respond Alcohol intake: unknown Comment: 1:1 Patient Tobacco Use Status: Tobacco use Unknown Advance Directives Date on File: 08/05/20 service: No Current occupational status: retired Meds Allergies Allergy/AdvReac Type Severity Reaction Status Date / Time atenolol Allergy Unknown Verified 05/11/23 02:15 duloxetine [From Cymbalta] Allergy Unknown Verified 05/11/23 02:15 ibuprofen Allergy Unknown Verified 05/11/23 02:15 levofloxacin [From Levaquin] Allergy Unknown Verified 05/11/23 02:15 Active Medications: Current Medications Acetaminophen (Acetaminophen 325 Mg Tablet) 650 mg PO Q6H PRN PRN Reason: Pain, Mild (Pain Scale 1-3) Acetaminophen (Acetaminophen Supp 650 Mg Supp.Rect) 650 mg AK Q6H PRN PRN Reason: Pain, Mild (Pain Scale 1-3) Acetaminophen (Acetaminophen Child Oral Liq 160 Mg/5 Ml Ud Cup) 640 mg PO QID PRN PRN Reason: Fever Or Pain Acetaminophen (Acetaminophen Supp 650 Mg Supp.Rect) 650 mg AK Q6H PRN PRN Reason: Fever Or Pain Apixaban (Apixaban 5 Mg Tablet) 5 mg G-TUBE BID [facility] Aspirin (Aspirin 81 Mg Tab.Chew) 81 mg G-TUBE DAILY@0900 [facility] Atorvastatin Calcium (Atorvastatin Calcium 10 Mg Tablet) 10 mg G-TUBE DAILY [facility] Atropine Sulfate (Atropine Sulfate 1 % Ophth Uyen 2 Ml Bottle) 2 drop SUBLINGUAL Q2H PRN PRN Reason: Secretions Bisacodyl (Bisacodyl 10 Mg Supp.Rect) 10 mg AK DAILY PRN PRN Reason: Constipation Docusate Sodium (Docusate Sodium 100 Mg/10 Ml Liquid) 100 mg G-TUBE BID [facility] Escitalopram Oxalate (Escitalopram Oxalate 20 Mg Tablet) 20 mg G-TUBE BEDTIME [facility] Famotidine (Famotidine 20 Mg Tablet) 40 mg G-TUBE DAILY@0900 [facility] Hydrocortisone (Hydrocortisone 10 Mg Tablet) 10 mg G-TUBE TID [facility] Piperacillin Sod/Tazobactam (Sod 4.5 gm/ Sodium Chloride) 100 mls @ 200 mls/hr IV Q6H [facility] Magnesium Hydroxide (Milk Of Magnesia 30 Ml Oral.Susp) 30 ml PO DAILY PRN PRN Reason: Constipation Melatonin (Melatonin 3 Mg Tablet) 6 mg PO BEDTIME PRN PRN Reason: Insomnia Midodrine (Midodrine Hcl 5 Mg Tablet) 5 mg PO TID PRN PRN Reason: low SBP Ondansetron HCl (Ondansetron Hcl 4 Mg/2 Ml Vial) 4 mg IVPUSH Q8H PRN PRN Reason: Nausea and Vomiting Oxycodone HCl (Oxycodone Hcl Immed Release 5 Mg Tablet) 2.5 mg G-TUBE BID PRN PRN Reason: Severe Pain (Scale Score 7-10) Polyethylene Glycol (Polyethylene Glycol 3350 17 Gm Powd.Pack) 17 gm G-TUBE DAILY [facility] Senna (Sennosides 8.6 Mg Tablet) 17.2 mg G-TUBE BID [facility] Sodium Chloride (0.9 % Sodium Chloride Flush 3 Ml Syringe) 3 ml IVFLUSH QSHIFT [facility] Trazodone HCl (Trazodone Hcl 25 Mg Halftab) 25 mg G-TUBE BID [facility] Valproic Acid (Valproic Acid (As Sodium Salt) 250 Mg/5 Ml Solution) 1,000 mg G- TUBE BEDTIME [facility] Valproic Acid (Valproic Acid (As Sodium Salt) 250 Mg/5 Ml Solution) 750 mg G- TUBE DAILY [facility] Home Medications Medication Instructions Recorded Confirmed Last Taken Type atropine 1 % eye drops 2 drp sublingual Q2H PRN Secretions 02/07/21 05/11/23 Unknown History calcium alginate 4 X 4 bandage 02/07/21 02/07/21 Unknown History nutritional supplements 0.06 See Rx Instructions .Route .COMPLEX 02/07/21 05/11/23 Unknown History gram-1.2 kcal/mL oral liquid (Osmolite 1.2 Cristobal) acetaminophen 160 mg/5 mL oral 640 mg PO QID PRN Fever Or Pain 05/11/23 05/11/23 Unknown History liquid acetaminophen 650 mg rectal 650 mg AK Q6H PRN Fever Or Pain 05/11/23 05/11/23 Unknown History suppository amino ac-protein hydro-whey 1 ea feeding tube DAILY 05/11/23 05/11/23 Unknown History protein 15 gram-100 kcal/30 mL oral liquid (ProSource Plus) arginine 7 gram-glutamine 7 1 ea PO BID 05/11/23 05/11/23 Unknown History gram-calcium HMB 1.5 gram oral powder pack (Chandler) bisacodyl 10 mg rectal suppository 10 mg AK DAILY PRN Constipation 05/11/23 05/11/23 Unknown History cholecalciferol (vitamin D3) 125 1,250 mcg feeding tube Q28D 05/11/23 05/11/23 Unknown History mcg (5,000 unit) tablet (Vitamin D3) docusate sodium 50 mg/5 mL oral 100 mg feeding tube BID 05/11/23 05/11/23 Unknown History liquid escitalopram oxalate 20 mg tablet 20 mg feeding tube BEDTIME 05/11/23 05/11/23 Unknown History magnesium hydroxide 400 mg/5 mL 30 ml PO DAILY PRN Constipation 05/11/23 05/11/23 Unknown History oral suspension (Milk of Magnesia) midodrine 5 mg tablet 5 mg PO TID PRN low SBP 05/11/23 05/11/23 Unknown History oxycodone 5 mg tablet 2.5 mg feeding tube BID PRN Severe 05/11/23 05/11/23 Unknown History Pain (Scale Score 7-10) polyethylene glycol 3350 17 gram 17 g feeding tube DAILY 05/11/23 05/11/23 Unknown History oral powder packet (Miralax) sennosides 8.8 mg/5 mL oral syrup 10 ml PO BID 05/11/23 05/11/23 Unknown History (senna) simvastatin 20 mg tablet 20 mg feeding tube DAILY 05/11/23 05/11/23 Unknown History trazodone 50 mg tablet 25 mg feeding tube BID 05/11/23 05/11/23 Unknown History valproic acid (as sodium salt) 250 1,000 mg feeding tube BEDTIME 05/11/23 05/11/23 Unknown History mg/5 mL oral solution valproic acid (as sodium salt) 250 750 mg feeding tube DAILY 05/11/23 05/11/23 Unknown History mg/5 mL oral solution Physical Exam 2 Vital Signs: Vital Signs: Last Vital Signs Temp 99 F 05/11/23 11:27 Pulse 91 05/11/23 12:00 Resp 18 05/11/23 12:00 BP 138/75 05/11/23 12:00 Pulse Ox 97 05/11/23 12:00 O2 Del Method Room Air 05/11/23 12:00 BMI result Body Mass Index 25.5 Const: Other: Has not appear to be in distress, eyes closed, nonverbal, not communicative, grimaces withdraws with sternal rub Resp: Effort & Inspection: normal respiratory effort Cardio: Rate: regular rate GI: Other: No obvious tenderness even on the right upper quadrant with deep palpation, no Alcantar's sign, no palpable mass Palpation (GI): Soft to palpation, not firm, nontender and no guarding Results Labs 05/13/23 05:00 05/13/23 05:00 Labs: Abnormal lab results 05/11/23 05/11/23 05/11/23 Range/Units 08:22 09:22 11:49 Hgb 12.8 L (14.0-18.0) g/dl MCH 25.4 L (27.0-33.0) pg MCHC 29.8 L (31.0-36.0) g/dl RDW 16.6 H (11.0-16.0) % Plt Count 106 L (160-400) X10*3/uL Neut % (Auto) 80.8 H (45-73) % Lymph % (Auto) 8.6 L (20-40) % Lymph # (Auto) 0.5 L (1.2-4.9) X10*3/uL PT 14.7 H (11.1-13.3) SEC INR 1.2 H (0.9-1.1) Sodium 146 H (135-145) mmol/L Carbon Dioxide 30 H (22-29) mmol/L Anion Gap 11 L (12-20) BUN 18 H (9-16) mg/dL Lactic Acid 5.7 H* (0.5-2.0) mmol/L Lactic Acid F/U @ 2Hr 4.2 H* (0.5-2.0) mmol/L Albumin 3.2 L (3.5-5.0) g/dL Ur Leukocyte Esterase Trace H (Negative) Short CBC 05/11/23 Range/Units 08:22 WBC 6.0 (4.8-10.8) X10*3/uL Hgb 12.8 L (14.0-18.0) g/dl Hct 42.9 (42.0-52.0) % Plt Count 106 L (160-400) X10*3/uL BMP 05/11/23 08:22 Sodium 146 H Potassium 3.3 Chloride 108 Carbon Dioxide 30 H BUN 18 H Creatinine 1.12 Calcium 9.4 Liver Function 05/11/23 Range/Units 08:22 Total Bilirubin 0.6 (0.0-1.0) mg/dL AST 24 (5-37) U/L ALT 12 (0-40) U/L Alkaline Phosphatase 93 (39-117) U/L Albumin 3.2 L (3.5-5.0) g/dL Urine 05/11/23 Range/Units 09:22 Urine Color Dark Yellow Urine Appearance Clear Urine pH 8.0 (5.0-9.0) Ur Specific [place] 1.015 (1.005-1.025) Urine Protein Trace (Neg-Trace) mg/dL Urine Glucose (UA) Negative (Negative) mg/dL All other labs normal. Laboratory Results WBC 6.0 X10*3/uL (4.8-10.8) 05/11/23 08:22 RBC 5.03 X10*6/uL (4.60-5.80) 05/11/23 08:22 Hgb 12.8 g/dl (14.0-18.0) L 05/11/23 08:22 Hct 42.9 % (42.0-52.0) 05/11/23 08:22 MCV 85.3 fL (80.0-98.0) 05/11/23 08:22 MCH 25.4 pg (27.0-33.0) L 05/11/23 08:22 MCHC 29.8 g/dl (31.0-36.0) L 05/11/23 08:22 RDW 16.6 % (11.0-16.0) H 05/11/23 08:22 Plt Count 106 X10*3/uL (160-400) L 05/11/23 08:22 MPV 11.2 fL (9.4-12.4) 05/11/23 08:22 Immature Gran % (Auto) 0.3 % (0.0-0.4) 05/11/23 08:22 Neut % (Auto) 80.8 % (45-73) H 05/11/23 08:22 Lymph % (Auto) 8.6 % (20-40) L 05/11/23 08:22 [place] % (Auto) 9.6 % (2-11) 05/11/23 08:22 Eos % (Auto) 0.5 % (0-4) 05/11/23 08:22 Baso % (Auto) 0.2 % (0-2) 05/11/23 08:22 Lymph # (Auto) 0.5 X10*3/uL (1.2-4.9) L 05/11/23 08:22 [place] # (Auto) 0.6 X10*3/uL (0.1-1.2) 05/11/23 08:22 Eos # (Auto) 0.0 X10*3/uL (0.0-0.4) 05/11/23 08:22 Baso # (Auto) 0.0 X10*3/uL (0.0-0.2) 05/11/23 08:22 Abs Immat Gran (auto) 0.02 X10*3/uL (0.00-0.03) 05/11/23 08:22 Absolute Neuts (auto) 4.8 x10*3/uL (2.0-8.3) 05/11/23 08:22 Absolute Nucleated RBC 0.000 X10*3/uL (0.0-0.012) 05/11/23 08:22 Nucleated RBC % (auto) 0.0 /100WBC (0.0-0.2) 05/11/23 08:22 PT 14.7 SEC (11.1-13.3) H 05/11/23 08:22 INR 1.2 (0.9-1.1) H 05/11/23 08:22 Sodium 146 mmol/L (135-145) H 05/11/23 08:22 Potassium 3.3 mmol/L (3.3-5.1) 05/11/23 08:22 Chloride 108 mmol/L (96-108) 05/11/23 08:22 Carbon Dioxide 30 mmol/L (22-29) H 05/11/23 08:22 Anion Gap 11 (12-20) L 05/11/23 08:22 BUN 18 mg/dL (9-16) H 05/11/23 08:22 Creatinine 1.12 mg/dL (0.5-1.4) 05/11/23 08:22 Estim Creat Clear Calc 69.0 05/11/23 08:22 Estimated GFR > 60 05/11/23 08:22 Random Glucose 104 mg/dL (60-115) 05/11/23 08:22 Lactic Acid 5.7 mmol/L (0.5-2.0) H* 05/11/23 08:22 Lactic Acid F/U @ 2Hr 4.2 mmol/L (0.5-2.0) H* 05/11/23 11:49 Calcium 9.4 mg/dL (8.4-10.2) 05/11/23 08:22 Total Bilirubin 0.6 mg/dL (0.0-1.0) 05/11/23 08:22 AST 24 U/L (5-37) 05/11/23 08:22 ALT 12 U/L (0-40) 05/11/23 08:22 Alkaline Phosphatase 93 U/L (39-117) 05/11/23 08:22 Total Protein 7.5 g/dL (6.5-8.0) 05/11/23 08:22 Albumin 3.2 g/dL (3.5-5.0) L 05/11/23 08:22 Urine Color Dark Yellow 05/11/23 09:22 Urine Appearance Clear 05/11/23 09:22 Urine pH 8.0 (5.0-9.0) 05/11/23 09:22 Ur Specific [place] 1.015 (1.005-1.025) 05/11/23 09:22 Urine Protein Trace mg/dL (Neg-Trace) 05/11/23 09:22 Urine Glucose (UA) Negative mg/dL (Negative) 05/11/23 09:22 Urine Ketones Negative mg/dL (Negative) 05/11/23 09:22 Urine Blood Negative (Negative) 05/11/23 09:22 Urine Nitrite Negative (Negative) 05/11/23 09:22 Ur Leukocyte Esterase Trace (Negative) H 05/11/23 09:22 Urine RBC 0-2 /HPF (0-2) 05/11/23 09:22 Urine WBC 0-5 /HPF (0-5) 05/11/23 09:22 Ur Squamous Epith Cells 0-2 /HPF (0-2) 05/11/23 09:22 Urine Bacteria None Seen (None Seen) 05/11/23 09:22 Hyaline Casts 0-2 /LPF (0-2) 05/11/23 09:22 Impressions Abdomen/Pelvis CT 05/11/23 10:16 IMPRESSION: Multi lobar infiltrates Porcelain gallbladder. Mild constipation. Mild prostate enlargement Gastrostomy tube and right hip prosthesis are noted. Chest CT 05/11/23 10:16 IMPRESSION: Multi lobar infiltrates Porcelain gallbladder. Mild constipation. Mild prostate enlargement Gastrostomy tube and right hip prosthesis are noted. Abdomen Ultrasound 05/11/23 12:00 IMPRESSION: Cholelithiasis with wall thickening suggestive of cholecystitis. Correlate with clinical exam Imaging Abdomen CT scan report/results: report reviewed and image reviewed CT scan - pelvis: report reviewed and image reviewed Assessment and Plan (1) Porcelain gallbladder: Status: Acute He was admitted the hospital because of hypoxia, likely with aspiration causing pneumonia. I have reviewed his CAT scan in his ultrasound. There was note of a portion gallbladder. However, he does not have any suggestion of acute cholecystitis. There has no significant tenderness or Alcantra sign. There is no leukocytosis There has no urgent indication for any surgical intervention including cholecystectomy at this time. Literature suggests incidence of neoplastic process in porcelain galllbladder is about 2-3%. This is more likely in selective mucosal calcification. The patient has diffuse calcification of the gallbladder wall more consistent with previous cholecystitis. It does not appear to have any tenderness at this time. With the presence of multiple comorbid conditions and poor functional status, I would recommend monitoring for now. Procedures Date of Service Date of Service: 05/14/23
--- NOTE | 2023-05-11 14:14 | PC.NURSE ---
per provider okay to start tube feed per same schedule used at [facility]
[2023-05-11] MEDS: Piperacillin Sodium/Tazobactam 4.5 GM in 0.9 % Sodium Chloride 100 ML IV ×2 (15:14→21:38)
[2023-05-11 15:16] LABS: ~Lactic Acid-LAB USE ONLY 2.9 mmol/L (0.5-2.0)
--- NOTE | 2023-05-11 16:23 | PC.NURSE ---
Tube feed started per MD order at 4pm.
--- NOTE | 2023-05-11 16:31 | PC.NURSE ---
Multiple calls placed to pharmacy for hydrocotisone, still not brought from pharmacy at this time
[2023-05-11] MEDS: Hydrocortisone 10 MG TABLET G-TUBE ×2 (16:38→22:19)
[2023-05-11] MEDS: 0.9 % Sodium Chloride Flush 3 ML SYRINGE IVFLUSH (16:41)
[2023-05-11] MEDS: traZODone HCL 25 MG HALFTAB G-TUBE (22:19)
[2023-05-11] MEDS: Docusate Sodium 100 MG/10 ML LIQUID G-TUBE (22:19)
[2023-05-11] MEDS: Apixaban 5 MG TABLET G-TUBE (22:19)
[2023-05-11] MEDS: Sennosides 8.6 MG TABLET 17.2 MG G-TUBE (22:19)
[2023-05-11] MEDS: Escitalopram Oxalate 20 MG TABLET G-TUBE (22:19)
--- NOTE | 2023-05-11 22:56 | HO.SKINPHOTO ---
Location:coccyx Category:pressure injury Stage: Length: Width: Depth: cm Location: Category: Stage: Length: Width: Depth: cm Location: Category: Stage: Length: Width: Depth: cm Location: Category: Stage: Length: Width: Depth: cm Location: Category: Stage: Length: Width: Depth: cm Location: Category: Stage: Length: Width: Depth: cm
[2023-05-12] MEDS: Piperacillin Sodium/Tazobactam 4.5 GM in 0.9 % Sodium Chloride 100 ML IV ×4 (04:09→21:30)
[2023-05-12 06:17] LABS: MANUAL DIFF FLAG NO
[2023-05-12 06:28] LABS: Basophils Percent Auto 0.1 % (0-2); Eosinophils Absolute Auto 0.1 X10*3/uL (0.0-0.4); Eosinophils Percent Auto 0.8 % (0-4); Hematocrit 32.8 % (42.0-52.0); Hemoglobin 10.1 g/dl (14.0-18.0); Imm Gran Abs Auto 0.02 X10*3/uL (0.00-0.03); Imm Gran Pct Auto 0.3 % (0.0-0.4); Lymphocytes Absolute Auto 0.7 X10*3/uL (1.2-4.9); Lymphocytes Percent Auto 8.5 % (20-40); Mean Corpuscular HGB Conc 30.8 g/dl (31.0-36.0); Mean Corpuscular Volume 84.3 fL (80.0-98.0); Mean Platelet Volume 11.3 fL (9.4-12.4); Monocytes Absolute Auto 0.6 X10*3/uL (0.1-1.2); Monocytes Percent Auto 7.9 % (2-11); Neutrophils Absolute Auto 6.3 x10*3/uL (2.0-8.3); Neutrophils Percent Auto 82.4 % (45-73); Platelet Count 105 X10*3/uL (160-400); Red Blood Count 3.89 X10*6/uL (4.60-5.80); Red Cell Distribution Width 16.8 % (11.0-16.0); White Blood Count 7.6 X10*3/uL (4.8-10.8)
[2023-05-12 06:46] LABS: Anion Gap 9 (12-20); Blood Urea Nitrogen 15 mg/dL (9-16); Calcium 8.8 mg/dL (8.4-10.2); Carbon Dioxide 26 mmol/L (22-29); Chloride 116 mmol/L (96-108); Creatinine Clr Calc Pharmacy 97.9; Estimated Glomerular Filt Rate > 60; Glucose Random 108 mg/dL (60-115); Potassium 3.9 mmol/L (3.3-5.1); Sodium 147 mmol/L (135-145)
[2023-05-12 07:38] VITALS: BP 139/76; PULSE 74; RESP 18; TEMP 36.4; O2SAT 98
[2023-05-12] MEDS: 0.9 % Sodium Chloride Flush 3 ML SYRINGE IVFLUSH ×3 (09:27→21:33)
[2023-05-12] MEDS: traZODone HCL 25 MG HALFTAB G-TUBE ×2 (09:29→21:15)
[2023-05-12] MEDS: polyethylene glycoL 3350 17 GM POWD.PACK G-TUBE (09:29)
[2023-05-12] MEDS: Famotidine 20 MG TABLET 40 MG G-TUBE (09:29)
[2023-05-12] MEDS: Hydrocortisone 10 MG TABLET G-TUBE ×3 (09:29→21:15)
[2023-05-12] MEDS: Aspirin 81 MG TAB.CHEW G-TUBE (09:29)
[2023-05-12] MEDS: Docusate Sodium 100 MG/10 ML LIQUID G-TUBE ×2 (09:29→21:14)
[2023-05-12] MEDS: Sennosides 8.6 MG TABLET 17.2 MG G-TUBE ×2 (09:29→21:15)
[2023-05-12] MEDS: Apixaban 5 MG TABLET G-TUBE ×2 (09:29→21:15)
--- NOTE | 2023-05-12 09:33 | P.PNIM_ITS ---
Subjective Subjective Date of Service: 05/12/23 Interval History: Was seen in follow-up for sepsis due to aspiration pneumonia No acute overnight events. Patient is nonverbal at baseline Review of Systems Unable to obtain due to patient's mentation Physical Exam 2 Vital Signs: Vital Signs: Last Vital Signs Temp 97.5 F 05/12/23 07:38 Pulse 74 05/12/23 07:38 Resp 18 05/12/23 07:38 BP 139/76 05/12/23 07:38 Pulse Ox 98 05/12/23 07:38 O2 Del Method Room Air 05/12/23 07:38 BMI result Body Mass Index 25.5 Middle-aged male lying in bed in no distress Neck supple, no JVD Regular rate and rhythm, S1-S2 heard Bilateral crackles appreciated Abdomen soft nontender, no guarding, no rigidity, G-tube in place without surrounding erythema Patient is awake but nonverbal, unable to assess orientation Objective Data Active Medications Acetaminophen (Acetaminophen 325 Mg Tablet) 650 mg PO Q6H PRN PRN Reason: Pain, Mild (Pain Scale 1-3) Acetaminophen (Acetaminophen Supp 650 Mg Supp.Rect) 650 mg [place] Q6H PRN PRN Reason: Pain, Mild (Pain Scale 1-3) Acetaminophen (Acetaminophen Child Oral Liq 160 Mg/5 Ml Ud Cup) 640 mg PO QID PRN PRN Reason: Fever Or Pain Acetaminophen (Acetaminophen Supp 650 Mg Supp.Rect) 650 mg [place] Q6H PRN PRN Reason: Fever Or Pain Apixaban (Apixaban 5 Mg Tablet) 5 mg G-TUBE BID [facility] Last Admin: 05/11/23 22:19 Dose: 5 mg Documented By: MOSHE Aspirin (Aspirin 81 Mg Tab.Chew) 81 mg G-TUBE DAILY@0900 [facility] Atorvastatin Calcium (Atorvastatin Calcium 10 Mg Tablet) 10 mg G-TUBE DAILY [facility] Atropine Sulfate (Atropine Sulfate 1 % Ophth [place] 2 Ml Bottle) 2 drop SUBLINGUAL Q2H PRN PRN Reason: Secretions Bisacodyl (Bisacodyl 10 Mg Supp.Rect) 10 mg [place] DAILY PRN PRN Reason: Constipation Docusate Sodium (Docusate Sodium 100 Mg/10 Ml Liquid) 100 mg G-TUBE BID [facility] Last Admin: 05/11/23 22:19 Dose: 100 mg Documented By: MOSHE Escitalopram Oxalate (Escitalopram Oxalate 20 Mg Tablet) 20 mg G-TUBE BEDTIME [facility] Last Admin: 05/11/23 22:19 Dose: 20 mg Documented By: MOSHE Famotidine (Famotidine 20 Mg Tablet) 40 mg G-TUBE DAILY@0900 [facility] Hydrocortisone (Hydrocortisone 10 Mg Tablet) 10 mg G-TUBE TID [facility] Last Admin: 05/11/23 22:19 Dose: 10 mg Documented By: MOSHE Piperacillin Sod/Tazobactam (Sod 4.5 gm/ Sodium Chloride) 100 mls @ 200 mls/hr IV Q6H [facility] Last Admin: 05/12/23 04:09 Dose: 200 mls/hr Documented By: MOSHE Magnesium Hydroxide (Milk Of Magnesia 30 Ml Oral.Susp) 30 ml PO DAILY PRN PRN Reason: Constipation Melatonin (Melatonin 3 Mg Tablet) 6 mg PO BEDTIME PRN PRN Reason: Insomnia Midodrine (Midodrine Hcl 5 Mg Tablet) 5 mg PO TID PRN PRN Reason: low SBP Ondansetron HCl (Ondansetron Hcl 4 Mg/2 Ml Vial) 4 mg IVPUSH Q8H PRN PRN Reason: Nausea and Vomiting Oxycodone HCl (Oxycodone Hcl Immed Release 5 Mg Tablet) 2.5 mg G-TUBE BID PRN PRN Reason: Severe Pain (Scale Score 7-10) Polyethylene Glycol (Polyethylene Glycol 3350 17 Gm Powd.Pack) 17 gm G-TUBE DAILY [facility] Senna (Sennosides 8.6 Mg Tablet) 17.2 mg G-TUBE BID [facility] Last Admin: 05/11/23 22:19 Dose: 17.2 mg Documented By: MOSHE Sodium Chloride (0.9 % Sodium Chloride Flush 3 Ml Syringe) 3 ml IVFLUSH QSHIFT [facility] Last Admin: 05/12/23 00:12 Dose: Not Given Documented By: MOSHE Non-Admin Reason: IV Running Trazodone HCl (Trazodone Hcl 25 Mg Halftab) 25 mg G-TUBE BID [facility] Last Admin: 05/11/23 22:19 Dose: 25 mg Documented By: MOSHE Valproic Acid (Valproic Acid (As Sodium Salt) 250 Mg/5 Ml Solution) 1,000 mg G- TUBE BEDTIME [facility] Last Admin: 05/11/23 22:18 Dose: 1,000 mg Documented By: MOSHE Valproic Acid (Valproic Acid (As Sodium Salt) 250 Mg/5 Ml Solution) 750 mg G- TUBE DAILY [facility] Last Admin: 05/11/23 15:13 Dose: 750 mg Documented By: MARIA TERESA Labs 05/12/23 06:05 05/12/23 06:05 Labs: Laboratory Results - last 24 hr 05/11/23 05/11/23 05/11/23 08:22 09:22 11:49 MCV MCH MCHC RDW Plt Count MPV Immature Gran % (Auto) Neut % (Auto) Lymph % (Auto) [place] % (Auto) Eos % (Auto) Baso % (Auto) Lymph # (Auto) [place] # (Auto) Eos # (Auto) Baso # (Auto) Abs Immat Gran (auto) Absolute Neuts (auto) Absolute Nucleated RBC Nucleated RBC % (auto) PT 14.7 H INR 1.2 H Anion Gap 11 L Estim Creat Clear Calc 69.0 Estimated GFR > 60 Random Glucose 104 Lactic Acid 5.7 H* Lactic Acid F/U @ 2Hr 4.2 H* Lactic Acid F/U @ 4Hr Calcium 9.4 Total Bilirubin 0.6 AST 24 ALT 12 Alkaline Phosphatase 93 Total Protein 7.5 Albumin 3.2 L Urine Color Dark Yellow Urine Appearance Clear Urine pH 8.0 Ur Specific [place] 1.015 Urine Protein Trace Urine Glucose (UA) Negative Urine Ketones Negative Urine Blood Negative Urine Nitrite Negative Ur Leukocyte Esterase Trace H Urine RBC 0-2 Urine WBC 0-5 Ur Squamous Epith Cells 0-2 Urine Bacteria None Seen Hyaline Casts 0-2 05/11/23 05/12/23 14:54 06:05 MCV 84.3 MCH 26.0 L MCHC 30.8 L RDW 16.8 H Plt Count 105 L MPV 11.3 Immature Gran % (Auto) 0.3 Neut % (Auto) 82.4 H Lymph % (Auto) 8.5 L [place] % (Auto) 7.9 Eos % (Auto) 0.8 Baso % (Auto) 0.1 Lymph # (Auto) 0.7 L [place] # (Auto) 0.6 Eos # (Auto) 0.1 Baso # (Auto) 0.0 Abs Immat Gran (auto) 0.02 Absolute Neuts (auto) 6.3 Absolute Nucleated RBC 0.000 Nucleated RBC % (auto) 0.0 PT INR Anion Gap 9 L Estim Creat Clear Calc 97.9 Estimated GFR > 60 Random Glucose 108 Lactic Acid Lactic Acid F/U @ 2Hr Lactic Acid F/U @ 4Hr 2.9 H* Calcium 8.8 D Total Bilirubin AST ALT Alkaline Phosphatase Total Protein Albumin Urine Color Urine Appearance Urine pH Ur Specific [place] Urine Protein Urine Glucose (UA) Urine Ketones Urine Blood Urine Nitrite Ur Leukocyte Esterase Urine RBC Urine WBC Ur Squamous Epith Cells Urine Bacteria Hyaline Casts Assessment and Plan (1) Bilateral pneumonia: Status: Acute (2) Severe sepsis: Status: Acute Plan Pt is a 67-year-old female with a PMH significant for?Alzheimer's dementia, paroxysmal AFib on Eliquis, HTN, among others who presents to the ED from [facility] for evaluation of vomiting and cough since earlier this morning. Pt will be admitted to the hospital for treatment and further evaluation of aspiration pneumonia with sepsis. Aspiration pneumonia with sepsis Resuscitated with IV crystalloids. Continue IV Zosyn, started 05/11/2023 ; follow blood cultures Monitor respiratory status Acute lactic acidosis due to sepsis ?Acute cholecystitis CT abdomen with porcelain gallbladder and ultrasound of the abdomen concerning for questionable acute cholecystitis. On IV antibiotics as above No surgical intervention as per General surgery Paroxysmal AFib Continue Eliquis Orthostatic hypotension Continue midodrine HLD Continue statin Dementia/mood disorder Continue home meds Diet Patient with PEG tube in place Will use Osmolite 1.5 Nutrition consult Normocytic anemia Chronic. Hemoglobin above transfusion threshold Full Code DVT Prophylaxis: On Eliquis Reason for continued hospitalization: aspiration pneumonia with sepsis. Given patient's significant comorbidities including advanced dementia, dysphagia, and nonverbal at baseline, patient to continue hospitalization for administration IV antibiotics and close monitoring of cultures and respiratory status. Quality Stroke Does the patient have a stroke diagnosis?: No VTE Prior VTE?: No VTE Risk Level:: Medical - moderate - high VTE Device Contraindication: Treatment Not Indicated VTE Drug Contraindication: N/A - Med Ordered
--- NOTE | 2023-05-12 09:49 | P.PNGS_ITS ---
Subjective Subjective Date of Service: 05/12/23 Interval history: mental status same pt nonverbal no events reported tolerating PEG feeds Physical Exam 2 Vital Signs: Vital Signs: Last Vital Signs Temp 97.5 F 05/12/23 07:38 Pulse 74 05/12/23 07:38 Resp 18 05/12/23 07:38 BP 139/76 05/12/23 07:38 Pulse Ox 98 05/12/23 07:38 O2 Del Method Room Air 05/12/23 07:38 BMI result Body Mass Index 25.5 Const: Other: appears comfortable, nonverbal, asleep, grimaces with sternal rub Resp: Effort & Inspection: normal respiratory effort Cardio: Rate: regular rate GI: Other: no apparent tenderness Palpation (GI): Soft to palpation, not firm and nontender Objective Data Active Medications Acetaminophen (Acetaminophen 325 Mg Tablet) 650 mg PO Q6H PRN PRN Reason: Pain, Mild (Pain Scale 1-3) Acetaminophen (Acetaminophen Supp 650 Mg Supp.Rect) 650 mg [place] Q6H PRN PRN Reason: Pain, Mild (Pain Scale 1-3) Acetaminophen (Acetaminophen Child Oral Liq 160 Mg/5 Ml Ud Cup) 640 mg PO QID PRN PRN Reason: Fever Or Pain Acetaminophen (Acetaminophen Supp 650 Mg Supp.Rect) 650 mg [place] Q6H PRN PRN Reason: Fever Or Pain Apixaban (Apixaban 5 Mg Tablet) 5 mg G-TUBE BID [facility] Last Admin: 05/12/23 09:29 Dose: 5 mg Documented By: JING Aspirin (Aspirin 81 Mg Tab.Chew) 81 mg G-TUBE DAILY@0900 [facility] Last Admin: 05/12/23 09:29 Dose: 81 mg Documented By: JING Atorvastatin Calcium (Atorvastatin Calcium 10 Mg Tablet) 10 mg G-TUBE DAILY [facility] Atropine Sulfate (Atropine Sulfate 1 % Ophth [place] 2 Ml Bottle) 2 drop SUBLINGUAL Q2H PRN PRN Reason: Secretions Bisacodyl (Bisacodyl 10 Mg Supp.Rect) 10 mg CO DAILY PRN PRN Reason: Constipation Docusate Sodium (Docusate Sodium 100 Mg/10 Ml Liquid) 100 mg G-TUBE BID [facility] Last Admin: 05/12/23 09:29 Dose: 100 mg Documented By: JING Escitalopram Oxalate (Escitalopram Oxalate 20 Mg Tablet) 20 mg G-TUBE BEDTIME [facility] Last Admin: 05/11/23 22:19 Dose: 20 mg Documented By: MOSHE Famotidine (Famotidine 20 Mg Tablet) 40 mg G-TUBE DAILY@0900 [facility] Last Admin: 05/12/23 09:29 Dose: 40 mg Documented By: JING Hydrocortisone (Hydrocortisone 10 Mg Tablet) 10 mg G-TUBE TID [facility] Last Admin: 05/12/23 09:29 Dose: 10 mg Documented By: JING Piperacillin Sod/Tazobactam (Sod 4.5 gm/ Sodium Chloride) 100 mls @ 200 mls/hr IV Q6H [facility] Last Admin: 05/12/23 04:09 Dose: 200 mls/hr Documented By: MOSHE Magnesium Hydroxide (Milk Of Magnesia 30 Ml Oral.Susp) 30 ml PO DAILY PRN PRN Reason: Constipation Melatonin (Melatonin 3 Mg Tablet) 6 mg PO BEDTIME PRN PRN Reason: Insomnia Midodrine (Midodrine Hcl 5 Mg Tablet) 5 mg PO TID PRN PRN Reason: low SBP Ondansetron HCl (Ondansetron Hcl 4 Mg/2 Ml Vial) 4 mg IVPUSH Q8H PRN PRN Reason: Nausea and Vomiting Oxycodone HCl (Oxycodone Hcl Immed Release 5 Mg Tablet) 2.5 mg G-TUBE BID PRN PRN Reason: Severe Pain (Scale Score 7-10) Polyethylene Glycol (Polyethylene Glycol 3350 17 Gm Powd.Pack) 17 gm G-TUBE DAILY [facility] Last Admin: 05/12/23 09:29 Dose: 17 gm Documented By: JING Senna (Sennosides 8.6 Mg Tablet) 17.2 mg G-TUBE BID [facility] Last Admin: 05/12/23 09:29 Dose: 17.2 mg Documented By: JING Sodium Chloride (0.9 % Sodium Chloride Flush 3 Ml Syringe) 3 ml IVFLUSH QSHIFT [facility] Last Admin: 05/12/23 09:27 Dose: 3 ml Documented By: JING Trazodone HCl (Trazodone Hcl 25 Mg Halftab) 25 mg G-TUBE BID [facility] Last Admin: 05/12/23 09:29 Dose: 25 mg Documented By: JING Valproic Acid (Valproic Acid (As Sodium Salt) 250 Mg/5 Ml Solution) 1,000 mg G- TUBE BEDTIME [facility] Last Admin: 05/11/23 22:18 Dose: 1,000 mg Documented By: MOSHE Valproic Acid (Valproic Acid (As Sodium Salt) 250 Mg/5 Ml Solution) 750 mg G- TUBE DAILY [facility] Last Admin: 05/12/23 09:29 Dose: 750 mg Documented By: JING Labs 05/12/23 06:05 05/12/23 06:05 Labs: Laboratory Results - last 24 hr 05/11/23 05/11/23 05/11/23 08:22 09:22 11:49 MCV MCH MCHC RDW Plt Count MPV Immature Gran % (Auto) Neut % (Auto) Lymph % (Auto) [place] % (Auto) Eos % (Auto) Baso % (Auto) Lymph # (Auto) [place] # (Auto) Eos # (Auto) Baso # (Auto) Abs Immat Gran (auto) Absolute Neuts (auto) Absolute Nucleated RBC Nucleated RBC % (auto) Anion Gap Estim Creat Clear Calc Estimated GFR Random Glucose Lactic Acid 5.7 H* Lactic Acid F/U @ 2Hr 4.2 H* Lactic Acid F/U @ 4Hr Calcium Urine Color Dark Yellow Urine Appearance Clear Urine pH 8.0 Ur Specific [place] 1.015 Urine Protein Trace Urine Glucose (UA) Negative Urine Ketones Negative Urine Blood Negative Urine Nitrite Negative Ur Leukocyte Esterase Trace H Urine RBC 0-2 Urine WBC 0-5 Ur Squamous Epith Cells 0-2 Urine Bacteria None Seen Hyaline Casts 0-2 05/11/23 05/12/23 14:54 06:05 MCV 84.3 MCH 26.0 L MCHC 30.8 L RDW 16.8 H Plt Count 105 L MPV 11.3 Immature Gran % (Auto) 0.3 Neut % (Auto) 82.4 H Lymph % (Auto) 8.5 L [place] % (Auto) 7.9 Eos % (Auto) 0.8 Baso % (Auto) 0.1 Lymph # (Auto) 0.7 L [place] # (Auto) 0.6 Eos # (Auto) 0.1 Baso # (Auto) 0.0 Abs Immat Gran (auto) 0.02 Absolute Neuts (auto) 6.3 Absolute Nucleated RBC 0.000 Nucleated RBC % (auto) 0.0 Anion Gap 9 L Estim Creat Clear Calc 97.9 Estimated GFR > 60 Random Glucose 108 Lactic Acid Lactic Acid F/U @ 2Hr Lactic Acid F/U @ 4Hr 2.9 H* Calcium 8.8 D Urine Color Urine Appearance Urine pH Ur Specific [place] Urine Protein Urine Glucose (UA) Urine Ketones Urine Blood Urine Nitrite Ur Leukocyte Esterase Urine RBC Urine WBC Ur Squamous Epith Cells Urine Bacteria Hyaline Casts Procedures Date of Service Date of Service: 05/12/23 Progress Note: A&P Assessment and plan (1) Porcelain gallbladder: Status: Acute Assessment and Plan: abd soft and benign no apparent tenderness no urgent surgical intervention necessary pt with multiple other comorbid conditions care as per MEdical service Time Spent With Patient Time: Total time managing care of this patient today ____ minutes. Quality Stroke Does the patient have a stroke diagnosis?: No VTE Prior VTE?: No VTE Risk Level:: Medical - moderate - high VTE Device Contraindication: Treatment Not Indicated VTE Drug Contraindication: N/A - Med Ordered
[2023-05-12 14:59] VITALS: BP 122/79; PULSE 90; RESP 15; TEMP 36.2; O2SAT 96
--- NOTE | 2023-05-12 15:30 | MHC.CM.PN ---
PT IS A [facility] RES[facility] HIS SISTER, RAFY GODINEZ [phone] IS HIS LEGAL GUARDIAN CHRISTEL WAS CONTACTED AND IS AWARE OF PTS ADMISSION PT WILL NEED BLS TRANSPORT HE IS BED BOUND
[2023-05-12] MEDS: Atorvastatin Calcium 10 MG TABLET G-TUBE (16:33)
[2023-05-12] MEDS: Melatonin 3 MG TABLET 6 MG PO (21:15)
[2023-05-12] MEDS: Escitalopram Oxalate 20 MG TABLET G-TUBE (21:15)
[2023-05-13] VITALS: BP 111/58; PULSE 80; RESP 16; TEMP 36.7; O2SAT 96
[2023-05-13] MEDS: Piperacillin Sodium/Tazobactam 4.5 GM in 0.9 % Sodium Chloride 100 ML IV ×4 (03:25→21:46)
[2023-05-13 05:36] LABS: MANUAL DIFF FLAG NO
[2023-05-13 05:43] LABS: Basophils Percent Auto 0.1 % (0-2); Eosinophils Absolute Auto 0.1 X10*3/uL (0.0-0.4); Eosinophils Percent Auto 1.2 % (0-4); Hemoglobin 9.3 g/dl (14.0-18.0); Imm Gran Abs Auto 0.02 X10*3/uL (0.00-0.03); Imm Gran Pct Auto 0.3 % (0.0-0.4); Lymphocytes Absolute Auto 0.8 X10*3/uL (1.2-4.9); Lymphocytes Percent Auto 11.1 % (20-40); Mean Corpuscular Hemoglobin 25.1 pg (27.0-33.0); Mean Corpuscular Volume 83.8 fL (80.0-98.0); Mean Platelet Volume 11.3 fL (9.4-12.4); Monocytes Absolute Auto 0.6 X10*3/uL (0.1-1.2); Monocytes Percent Auto 9.1 % (2-11); Neutrophils Absolute Auto 5.3 x10*3/uL (2.0-8.3); Neutrophils Percent Auto 78.2 % (45-73); Red Cell Distribution Width 16.3 % (11.0-16.0); White Blood Count 6.7 X10*3/uL (4.8-10.8)
[2023-05-13 05:45] LABS: Platelet Count 90 X10*3/uL (160-400)
[2023-05-13 06:00] LABS: Anion Gap 10 (12-20); Blood Urea Nitrogen 13 mg/dL (9-16); Calcium 8.6 mg/dL (8.4-10.2); Carbon Dioxide 26 mmol/L (22-29); Chloride 114 mmol/L (96-108); Creatinine Clr Calc Pharmacy 99.2; Estimated Glomerular Filt Rate > 60; Glucose Random 117 mg/dL (60-115); Potassium 3.9 mmol/L (3.3-5.1); Sodium 146 mmol/L (135-145)
[2023-05-13 07:28] VITALS: BP 138/76; PULSE 70; RESP 20; TEMP 37.3; O2SAT 98
[2023-05-13] MEDS: Hydrocortisone 10 MG TABLET G-TUBE ×3 (08:43→19:53)
[2023-05-13] MEDS: Famotidine 20 MG TABLET 40 MG G-TUBE (08:43)
[2023-05-13] MEDS: Sennosides 8.6 MG TABLET 17.2 MG G-TUBE ×2 (08:43→19:52)
[2023-05-13] MEDS: Docusate Sodium 100 MG/10 ML LIQUID G-TUBE ×2 (08:43→19:53)
[2023-05-13] MEDS: Apixaban 5 MG TABLET G-TUBE ×2 (08:43→19:52)
[2023-05-13] MEDS: traZODone HCL 25 MG HALFTAB G-TUBE ×2 (08:44→19:53)
[2023-05-13] MEDS: Aspirin 81 MG TAB.CHEW G-TUBE (08:44)
[2023-05-13] MEDS: Atorvastatin Calcium 10 MG TABLET G-TUBE (08:44)
[2023-05-13] MEDS: 0.9 % Sodium Chloride Flush 3 ML SYRINGE IVFLUSH ×3 (08:45→19:53)
[2023-05-13] MEDS: polyethylene glycoL 3350 17 GM POWD.PACK G-TUBE (08:45)
--- NOTE | 2023-05-13 10:29 | P.PNIM_ITS ---
Subjective Subjective Date of Service: 05/13/23 Interval History: Was seen in follow-up for sepsis due to aspiration pneumonia No acute overnight events. Patient is nonverbal at baseline Review of Systems Unable to obtain due to patient's mentation Physical Exam 2 Vital Signs: Vital Signs: Last Vital Signs Temp 99.1 F 05/13/23 07:28 Pulse 70 05/13/23 07:28 Resp 20 05/13/23 07:28 BP 138/76 05/13/23 07:28 Pulse Ox 98 05/13/23 07:28 O2 Del Method Room Air 05/13/23 07:28 BMI result Body Mass Index 25.5 Appearing in no acute distress lung sounds are clear to auscultation heart regular rate rhythm, clear S1, S2 positive bowel sounds, abdomen is soft, nontender neuro patient is sleeping, non verbal Objective Data Active Medications Acetaminophen (Acetaminophen 325 Mg Tablet) 650 mg PO Q6H PRN PRN Reason: Pain, Mild (Pain Scale 1-3) Acetaminophen (Acetaminophen Supp 650 Mg Supp.Rect) 650 mg MT Q6H PRN PRN Reason: Pain, Mild (Pain Scale 1-3) Acetaminophen (Acetaminophen Child Oral Liq 160 Mg/5 Ml Ud Cup) 640 mg PO QID PRN PRN Reason: Fever Or Pain Acetaminophen (Acetaminophen Supp 650 Mg Supp.Rect) 650 mg MT Q6H PRN PRN Reason: Fever Or Pain Apixaban (Apixaban 5 Mg Tablet) 5 mg G-TUBE BID [facility] Last Admin: 05/13/23 08:43 Dose: 5 mg Documented By: JOSÉ MIGUEL Aspirin (Aspirin 81 Mg Tab.Chew) 81 mg G-TUBE DAILY@0900 [facility] Last Admin: 05/13/23 08:44 Dose: 81 mg Documented By: JOSÉ MIGUEL Atorvastatin Calcium (Atorvastatin Calcium 10 Mg Tablet) 10 mg G-TUBE DAILY [facility] Last Admin: 05/13/23 08:44 Dose: 10 mg Documented By: JOSÉ MIGUEL Atropine Sulfate (Atropine Sulfate 1 % Ophth Uyen 2 Ml Bottle) 2 drop SUBLINGUAL Q2H PRN PRN Reason: Secretions Bisacodyl (Bisacodyl 10 Mg Supp.Rect) 10 mg MT DAILY PRN PRN Reason: Constipation Docusate Sodium (Docusate Sodium 100 Mg/10 Ml Liquid) 100 mg G-TUBE BID [facility] Last Admin: 05/13/23 08:43 Dose: 100 mg Documented By: JOSÉ MIGUEL Escitalopram Oxalate (Escitalopram Oxalate 20 Mg Tablet) 20 mg G-TUBE BEDTIME [facility] Last Admin: 05/12/23 21:15 Dose: 20 mg Documented By: BALJIT Famotidine (Famotidine 20 Mg Tablet) 40 mg G-TUBE DAILY@0900 [facility] Last Admin: 05/13/23 08:43 Dose: 40 mg Documented By: JOSÉ MIGUEL Hydrocortisone (Hydrocortisone 10 Mg Tablet) 10 mg G-TUBE TID [facility] Last Admin: 05/13/23 08:43 Dose: 10 mg Documented By: JOSÉ MIGUEL Piperacillin Sod/Tazobactam (Sod 4.5 gm/ Sodium Chloride) 100 mls @ 200 mls/hr IV Q6H [facility] Last Infusion: 05/13/23 03:58 Dose: Infused Documented By: BALJIT Magnesium Hydroxide (Milk Of Magnesia 30 Ml Oral.Susp) 30 ml PO DAILY PRN PRN Reason: Constipation Melatonin (Melatonin 3 Mg Tablet) 6 mg PO BEDTIME PRN PRN Reason: Insomnia Last Admin: 05/12/23 21:15 Dose: 6 mg Documented By: BALJIT Midodrine (Midodrine Hcl 5 Mg Tablet) 5 mg PO TID PRN PRN Reason: low SBP Ondansetron HCl (Ondansetron Hcl 4 Mg/2 Ml Vial) 4 mg IVPUSH Q8H PRN PRN Reason: Nausea and Vomiting Oxycodone HCl (Oxycodone Hcl Immed Release 5 Mg Tablet) 2.5 mg G-TUBE BID PRN PRN Reason: Severe Pain (Scale Score 7-10) Polyethylene Glycol (Polyethylene Glycol 3350 17 Gm Powd.Pack) 17 gm G-TUBE DAILY [facility] Last Admin: 05/13/23 08:45 Dose: 17 gm Documented By: JOSÉ MIGUEL Senna (Sennosides 8.6 Mg Tablet) 17.2 mg G-TUBE BID [facility] Last Admin: 05/13/23 08:43 Dose: 17.2 mg Documented By: JOSÉ MIGUEL Sodium Chloride (0.9 % Sodium Chloride Flush 3 Ml Syringe) 3 ml IVFLUSH QSHIFT [facility] Last Admin: 05/13/23 08:45 Dose: 3 ml Documented By: JOSÉ MIGUEL Trazodone HCl (Trazodone Hcl 25 Mg Halftab) 25 mg G-TUBE BID [facility] Last Admin: 05/13/23 08:44 Dose: 25 mg Documented By: JOSÉ MIGUEL Valproic Acid (Valproic Acid (As Sodium Salt) 250 Mg/5 Ml Solution) 1,000 mg G- TUBE BEDTIME [facility] Last Admin: 05/12/23 21:14 Dose: 1,000 mg Documented By: COTEMA Valproic Acid (Valproic Acid (As Sodium Salt) 250 Mg/5 Ml Solution) 750 mg G- TUBE DAILY [facility] Last Admin: 05/13/23 08:42 Dose: 750 mg Documented By: JOSÉ MIGUEL Labs 05/13/23 05:00 05/13/23 05:00 Labs: Laboratory Results - last 24 hr 05/13/23 05:00 MCV 83.8 MCH 25.1 L MCHC 30.0 L RDW 16.3 H Plt Count 90 L MPV 11.3 Immature Gran % (Auto) 0.3 Neut % (Auto) 78.2 H Lymph % (Auto) 11.1 L [place] % (Auto) 9.1 Eos % (Auto) 1.2 Baso % (Auto) 0.1 Lymph # (Auto) 0.8 L [place] # (Auto) 0.6 Eos # (Auto) 0.1 Baso # (Auto) 0.0 Abs Immat Gran (auto) 0.02 Absolute Neuts (auto) 5.3 Absolute Nucleated RBC 0.000 Nucleated RBC % (auto) 0.0 Anion Gap 10 L Estim Creat Clear Calc 99.2 Estimated GFR > 60 Random Glucose 117 H Calcium 8.6 Microbiology Microbiology Results: Microbiology 05/11/23 08:22 Blood Culture - Preliminary Blood - Venous No growth after 48 hours. 05/11/23 08:38 Blood Culture - Preliminary Blood - Venous No growth after 24 hours. Assessment and Plan (1) Bilateral pneumonia: Status: Acute (2) Severe sepsis: Status: Acute Plan Pt is a 67-year-old female with a PMH significant for?Alzheimer's dementia, paroxysmal AFib on Eliquis, HTN, among others who presents to the ED from [facility] for evaluation of vomiting and cough since earlier this morning. Pt will be admitted to the hospital for treatment and further evaluation of aspiration pneumonia with sepsis. Aspiration pneumonia with sepsis Resuscitated with IV crystalloids. Continue IV Zosyn, started 05/11/2023 blood cultures neg Monitor respiratory status Acute lactic acidosis due to sepsis ?Acute cholecystitis CT abdomen with porcelain gallbladder and ultrasound of the abdomen concerning for questionable acute cholecystitis. On IV antibiotics as above No surgical intervention as per General surgery Paroxysmal AFib Continue Eliquis Orthostatic hypotension Continue midodrine HLD Continue statin Dementia/mood disorder Continue home meds PEG tube in place Will use Osmolite 1.5 Nutrition consult pending Normocytic anemia Chronic. Hemoglobin above transfusion threshold Full Code Attending Dr. Mcgraw DVT Prophylaxis: On Eliquis DISPO [facility] medically clear Reason for continued hospitalization: aspiration pneumonia with sepsis. Given patient's significant comorbidities including advanced dementia, dysphagia, and nonverbal at baseline, patient to continue hospitalization for administration IV antibiotics and close monitoring of cultures and respiratory status. Quality Stroke Does the patient have a stroke diagnosis?: No VTE Prior VTE?: No VTE Risk Level:: Medical - moderate - high VTE Device Contraindication: Treatment Not Indicated VTE Drug Contraindication: N/A - Med Ordered
[2023-05-13 11:00] VITALS: BMI 25.5
--- NOTE | 2023-05-13 11:21 | MHC.CLN ---
Addendum entered by Bhargavi Licona, JANKI 05/13/23 13:38: CHANGED TUBE FEEDING TO 24 HOURS CONTINUOUS. RATE REDUCED TO 60 ML PER HOUR. OSMOLITE 1.5 AT 60 ML PER HOUR PROVIDES 1440 ML FORMULA AND IS SAME VOLUME CALCULATIONS BELOW. Original Note: NUTRITION CONSULT FOR TUBE FEEDING. PATIENT WITH ASPIRATION PNEUMONIA, ADVANCED DEMENTIA AND DYSPHAGIA. REQUIRES NUTRITION/HYDRATION VIA PEG. TOLERATING CURRENT TUBE FEEDING: OSMOLITE 1.5 X 16 HOURS AT MAX GOAL RATE 90 ML PER HOUR AND FREE WATER FLUSHES 300 ML Q 6 HOURS. PROVIDES 2160 KCALS (26 KCALS/KG); 90 G PROTEIN (1.08 G/KG); FREE WATER FROM FORMULA AND YYSYU=9739 ML (27.6 ML/KG). ZQXUSC=232 HIGH. MAY NEED ADDITIONAL FLUID VIA FREE WATER FLUSH. SKIN WITH STAGE II TO COCCYX. FOLLOW FOR TUBE FEED TOLERANCE, LABS AND SKIN INTEGRITY.
--- NOTE | 2023-05-13 13:08 | MHC.CM.PN ---
No discharge today. Patient is not medically cleared. DP return to [facility] via BLS.
[2023-05-13 15:17] VITALS: BP 140/68; PULSE 69; RESP 18; TEMP 36.9; O2SAT 98
--- NOTE | 2023-05-13 15:31 | HO.WOUND ---
Wound Consult: Initial 67yr old? M admitted to [facility] on 05/10 - See progress notes and H&P for detailed history.? Wound consult placed for Coccyx Wound POA.? Patient is nonverbal baseline - with assist of myself and one other staff her was repositioned to assess hi coccyx and buttock. ? Coccyx Etiology: ?Stage 3 Pressure Inury ?Present on Admission Measurements: see charting for detailed measurement Wound Bed: red moist wound bed - no undermining noted at the time of my assessment Drainage / Odor: yee yellow drainage - no odor noted Edges: ? unattached [place]iba wound: [place] hypopigmented tissue - macerated edges - evidence of larger previous wound - ? No Induration, Fluctuance or Warmth noted Pain: did not appear to have discomfort during assessment Goals of Treatment: ? Moist wound healing - light packing with Alginate and foam dressing Recommendations: 1. Turn and Reposition every 2 hours and as needed for patient comfort.? Use pillows or wedges to support off loading positions. 2. Off Load all bony prominences with use of pillows and heel boots if needed.? Apply Preventative foams where needed. ? 3. Monitor for incontinence and moisture control, use barrier creams when needed for prevention and treatment. 4. Provide adequate and supplemental nutrition.? 5. Order low air loss mattress. 6. Coccyx - Off Load Pressure - Cleanse and irrigate with NS, Pat dry.? Apply barrier to periwound, lightly pack with Durafiber AG, be sure to leave a wick to easy removal.? Cover with Foam dressing.? Change every other day and PRN. Re-consult wound care Nurse for wound deterioration or wound changes.
[2023-05-13] MEDS: Escitalopram Oxalate 20 MG TABLET G-TUBE (19:53)
[2023-05-13] MEDS: Melatonin 3 MG TABLET 6 MG PO (19:53)
[2023-05-13 22:44] VITALS: BP 121/62; PULSE 73; RESP 17; TEMP 36.9; O2SAT 98
[2023-05-14] MEDS: Piperacillin Sodium/Tazobactam 4.5 GM in 0.9 % Sodium Chloride 100 ML IV ×3 (03:44→15:40)
[2023-05-14 06:54] VITALS: BP 140/82; PULSE 74; RESP 17; TEMP 36.6; O2SAT 96
--- NOTE | 2023-05-14 08:50 | PM.PNGS ---
Subjective Subjective Date of Service: 05/14/23 Interval history: No changes in status Patient remains nonverbal Mental status seems to be at baseline Tolerating PEG tube feeds Physical Exam Vital Signs: Vital Signs: Last Vital Signs Temp 98 F 05/14/23 06:54 Pulse 74 05/14/23 06:54 Resp 17 05/14/23 06:54 BP 140/82 H 05/14/23 06:54 Pulse Ox 96 05/14/23 06:54 O2 Del Method Room Air 05/14/23 06:54 BMI result Body Mass Index 25.5 Const: Other: Nonverbal, eyes closed, grimaces with stimulation General: comfortable Resp: Effort & Inspection: normal respiratory effort Cardio: Rate: regular rate GI: Other: Peg tube in place Palpation (GI): Soft to palpation, not firm and nontender Objective Data Active Medications Acetaminophen (Acetaminophen 325 Mg Tablet) 650 mg PO Q6H PRN PRN Reason: Pain, Mild (Pain Scale 1-3) Acetaminophen (Acetaminophen Supp 650 Mg Supp.Rect) 650 mg GA Q6H PRN PRN Reason: Pain, Mild (Pain Scale 1-3) Acetaminophen (Acetaminophen Child Oral Liq 160 Mg/5 Ml Ud Cup) 640 mg PO QID PRN PRN Reason: Fever Or Pain Acetaminophen (Acetaminophen Supp 650 Mg Supp.Rect) 650 mg GA Q6H PRN PRN Reason: Fever Or Pain Apixaban (Apixaban 5 Mg Tablet) 5 mg G-TUBE BID [facility] Last Admin: 05/13/23 19:52 Dose: 5 mg Documented By: JAYESH Aspirin (Aspirin 81 Mg Tab.Chew) 81 mg G-TUBE DAILY@0900 [facility] Last Admin: 05/13/23 08:44 Dose: 81 mg Documented By: JOSÉ MIGUEL Atorvastatin Calcium (Atorvastatin Calcium 10 Mg Tablet) 10 mg G-TUBE DAILY [facility] Last Admin: 05/13/23 08:44 Dose: 10 mg Documented By: JOSÉ MIGUEL Atropine Sulfate (Atropine Sulfate 1 % Ophth Uyen 2 Ml Bottle) 2 drop SUBLINGUAL Q2H PRN PRN Reason: Secretions Bisacodyl (Bisacodyl 10 Mg Supp.Rect) 10 mg GA DAILY PRN PRN Reason: Constipation Docusate Sodium (Docusate Sodium 100 Mg/10 Ml Liquid) 100 mg G-TUBE BID [facility] Last Admin: 05/13/23 19:53 Dose: 100 mg Documented By: JAYESH Escitalopram Oxalate (Escitalopram Oxalate 20 Mg Tablet) 20 mg G-TUBE BEDTIME [facility] Last Admin: 05/13/23 19:53 Dose: 20 mg Documented By: JAYESH Famotidine (Famotidine 20 Mg Tablet) 40 mg G-TUBE DAILY@0900 [facility] Last Admin: 05/13/23 08:43 Dose: 40 mg Documented By: JOSÉ MIGUEL Hydrocortisone (Hydrocortisone 10 Mg Tablet) 10 mg G-TUBE TID [facility] Last Admin: 05/13/23 19:53 Dose: 10 mg Documented By: JAYESH Piperacillin Sod/Tazobactam (Sod 4.5 gm/ Sodium Chloride) 100 mls @ 200 mls/hr IV Q6H [facility] Last Infusion: 05/14/23 04:17 Dose: Infused Documented By: JAYESH Magnesium Hydroxide (Milk Of Magnesia 30 Ml Oral.Susp) 30 ml PO DAILY PRN PRN Reason: Constipation Melatonin (Melatonin 3 Mg Tablet) 6 mg PO BEDTIME PRN PRN Reason: Insomnia Last Admin: 05/13/23 19:53 Dose: 6 mg Documented By: JAYESH Midodrine (Midodrine Hcl 5 Mg Tablet) 5 mg PO TID PRN PRN Reason: low SBP Ondansetron HCl (Ondansetron Hcl 4 Mg/2 Ml Vial) 4 mg IVPUSH Q8H PRN PRN Reason: Nausea and Vomiting Oxycodone HCl (Oxycodone Hcl Immed Release 5 Mg Tablet) 2.5 mg G-TUBE BID PRN PRN Reason: Severe Pain (Scale Score 7-10) Polyethylene Glycol (Polyethylene Glycol 3350 17 Gm Powd.Pack) 17 gm G-TUBE DAILY [facility] Last Admin: 05/13/23 08:45 Dose: 17 gm Documented By: JOSÉ MIGUEL Senna (Sennosides 8.6 Mg Tablet) 17.2 mg G-TUBE BID [facility] Last Admin: 05/13/23 19:52 Dose: 17.2 mg Documented By: JAYESH Sodium Chloride (0.9 % Sodium Chloride Flush 3 Ml Syringe) 3 ml IVFLUSH QSHIFT [facility] Last Admin: 05/13/23 19:53 Dose: 3 ml Documented By: JAYESH Trazodone HCl (Trazodone Hcl 25 Mg Halftab) 25 mg G-TUBE BID [facility] Last Admin: 05/13/23 19:53 Dose: 25 mg Documented By: JAYESH Valproic Acid (Valproic Acid (As Sodium Salt) 250 Mg/5 Ml Solution) 1,000 mg G-TUBE BEDTIME [facility] Last Admin: 05/13/23 19:53 Dose: 1,000 mg Documented By: JAYESH Valproic Acid (Valproic Acid (As Sodium Salt) 250 Mg/5 Ml Solution) 750 mg G-TUBE DAILY [facility] Last Admin: 05/13/23 08:42 Dose: 750 mg Documented By: GRAZIC Labs 05/13/23 05:00 05/13/23 05:00 Microbiology Microbiology Results: Microbiology 05/11/23 08:38 Blood Culture - Preliminary Blood - Venous No growth after 48 hours. 05/11/23 08:22 Blood Culture - Preliminary Blood - Venous No growth after 48 hours. Procedures Date of Service Date of Service: 05/14/23 Progress Note: A&P Assessment and plan (1) Porcelain gallbladder: Status: Acute Assessment and Plan: Clinical picture does not suggest acute cholecystitis No surgical intervention at this time Abdomen soft and benign Tolerating PEG tube feeds The rest of management as per hospitalist service Time Spent With Patient Time: Total time managing care of this patient today ____ minutes. Quality Stroke Does the patient have a stroke diagnosis?: No VTE Prior VTE?: No VTE Risk Level:: Medical - moderate - high VTE Device Contraindication: Treatment Not Indicated VTE Drug Contraindication: N/A - Med Ordered
[2023-05-14 08:52] LABS: Hematocrit 34.5 % (42.0-52.0); Hemoglobin 10.6 g/dl (14.0-18.0); Mean Corpuscular HGB Conc 30.7 g/dl (31.0-36.0); Mean Corpuscular Hemoglobin 25.4 pg (27.0-33.0); Mean Corpuscular Volume 82.7 fL (80.0-98.0); Mean Platelet Volume 11.2 fL (9.4-12.4); Platelet Count 97 X10*3/uL (160-400); Red Blood Count 4.17 X10*6/uL (4.60-5.80); White Blood Count 6.1 X10*3/uL (4.8-10.8)
[2023-05-14 09:17] LABS: Anion Gap 10 (12-20); Blood Urea Nitrogen 12 mg/dL (9-16); Calcium 8.7 mg/dL (8.4-10.2); Carbon Dioxide 26 mmol/L (22-29); Chloride 115 mmol/L (96-108); Estimated Glomerular Filt Rate > 60; Glucose Random 101 mg/dL (60-115); Potassium 3.8 mmol/L (3.3-5.1); Sodium 147 mmol/L (135-145)
[2023-05-14] MEDS: 0.9 % Sodium Chloride Flush 3 ML SYRINGE IVFLUSH ×2 (09:22→15:26)
[2023-05-14] MEDS: Famotidine 20 MG TABLET 40 MG G-TUBE (09:23)
[2023-05-14] MEDS: Sennosides 8.6 MG TABLET 17.2 MG G-TUBE (09:23)
[2023-05-14] MEDS: Docusate Sodium 100 MG/10 ML LIQUID G-TUBE (09:23)
[2023-05-14] MEDS: Atorvastatin Calcium 10 MG TABLET G-TUBE (09:23)
[2023-05-14] MEDS: Aspirin 81 MG TAB.CHEW G-TUBE (09:23)
[2023-05-14] MEDS: traZODone HCL 25 MG HALFTAB G-TUBE (09:23)
[2023-05-14] MEDS: Apixaban 5 MG TABLET G-TUBE (09:23)
[2023-05-14] MEDS: polyethylene glycoL 3350 17 GM POWD.PACK G-TUBE (09:24)
--- NOTE | 2023-05-14 10:49 | MHC.CLN ---
F/U PT RECEIVING OSMOLITE 1.5 X 24 HOURS AT MAX GOAL RATE 60 ML PER HOUR AND FREE WATER FLUSHES 300 ML Q 6 HOURS PROVIDES 2160 KCALS (26 KCALS/KG); 90 G PROTEIN (1.08 G/KG); FREE WATER FROM FORMULA AND FLUSH 2297 ML (27.6 ML/KG) OSMOLITE FORMULA NOT AVAILABLE IN FACILITY RECOMMEND SWITCHING TO FORMULA JEVITY 1.0 AT MAX GOAL RATE 85ML/HR WITH 240ML FREE WATER FLUSHES Q 8 HRS TO PROVIDE 2162KCALS (26KCALS/KG), 90G PROTEIN (1.0G/KG), 2423ML TOTAL FLUID FROM FORMULA AND FLUSHES (29ML/KG) MONITOR TOLERANCE, RESIDUALS AND LYTES
--- NOTE | 2023-05-14 11:12 | PC.NURSE ---
F/C discontinued per M.Rafaela order
--- NOTE | 2023-05-14 11:27 | PM.DS ---
DS: Providers Provider Date of Service: 05/14/23 Date of admission: 05/11/23 11:14 Primary care physician: BRIGIDA BALLARD Consults: 05/11/23 13:28 Consult to General Surgery Routine Consulting Provider: [facility] [place] [facility] Reason for consultation: Porcelain gallbladder 05/11/23 22:24 Consult to Wound Care Routine Reason for consultation: pressure injury to coccyx DS: Diagnosis Discharge Diagnosis (1) Porcelain gallbladder: Status: Acute DS: Summary Hospital Course Hospital Course: H and P as per admitting provider. Pt is a 67-year-old female with a PMH significant for?Alzheimer's dementia, paroxysmal AFib on Eliquis, HTN, among others who presents to the ED from [facility] for evaluation of vomiting and cough since earlier this morning. Patient is primarily nonverbal at baseline and currently unarousable and thus incapable of providing HPI which instead obtained from chart, provider review, and staff at SNF. Patient originally presented to the ED earlier this morning when staff at [facility] concern patient increasing cough congestion. Initial workup at ED revealed normal white count, unremarkable BMP, clear CXR, and testing negative for COVID and flu. Patient was also afebrile with vitals WNL and patient was sent back to facility. Staff at facility report when patient arrived pack at nursing he immediately started vomiting and had difficulty breathing. EMS had not even left by this time in the immediately brought him back to the ED for further evaluation. In the ED pt was febrile up to 102.1, tachycardic up to 105, with 1 episode of soft BP of 116/44, satting at 97% on RA. Labs were significant for lactic acid of 5.7 with repeat 4.2, otherwise grossly unremarkable. UA negative for UTI. Respiratory panel negative. Was given a CTA of chest which found multi lobular infiltrates. CT of abdomen and pelvis found new porcelain gallbladder, as well as mild constipation and mild prostate without acute findings, though did showed mild constipation mouth prostate enlargement. Pt was treated with IVF, Zosyn, and acetaminophen. Pt will be admitted to the hospital for treatment and further evaluation of aspiration pneumonia with sepsis. 67-year-old man treated for aspiration pneumonia with sepsis. Started on IV Zosyn, blood cultures remained negative during hospitalization. He did have acute lactic acidosis which was secondary to sepsis. There was a question of acute cholecystitis but abdominal CT showed porcelain gallbladder, seen evaluated by General surgery with no recommendation for surgical intervention. Patient has baseline dementia and is nonverbal. He lives at [facility] and plan is to transfer back with Augmentin liquid suspension 875 mg/7.5 mL for 4 more days. Patient has not required any oxygen and has not been hypoxic. Paroxysmal atrial fibrillation. Continue Eliquis History of orthostatic hypotension. Continue midodrine Hyperlipidemia. Continue statin Dementia. Continue home medications Normocytic anemia. Hemoglobin above transfusion threshold History of PEG tube. On Osmolite 1.5 during hospitalization Time Attestation Discharge Coordination Time (in mins): 37 Quality: Safe Use of Opioids Does Pt have an Active Cancer Diagnosis on the Problem List?: No Quality: Stroke Does the patient have a stroke diagnosis?: No Physical Exam Vital Signs: Vital Signs: Last Vital Signs Temp 98 F 05/14/23 06:54 Pulse 74 05/14/23 06:54 Resp 17 05/14/23 06:54 BP 140/82 H 05/14/23 06:54 Pulse Ox 96 05/14/23 06:54 O2 Del Method Room Air 05/14/23 06:54 BMI result Body Mass Index 25.5 Appearing in no acute distress head is normocephalic atraumatic eyes pupils are PERRLA sclera is anicteric mouth throat mucous membranes are intact and moist neck is supple no lymphadenopathy, no JVD noted lung sounds are clear to auscultation heart regular rate rhythm, clear S1, S2 positive bowel sounds, abdomen is soft neuro patient is alert, non verbal DS: Data Data Completed and Pending Completed studies during hospitalization [Text1]: Procedures Assistance with Respiratory Ventilation, 24-96 Consecutive Hours, Continuous Positive Airway Pressure (09/20/20) Insertion of Endotracheal Airway into Trachea, Via Natural or Artificial Opening (08/30/20) Insertion of Feeding Device into Stomach, Percutaneous Approach (02/07/21) Insertion of Infusion Device into Superior Vena Cava, Percutaneous Approach (08/30/20) Respiratory Ventilation, Greater than 96 Consecutive Hours (08/30/20) Labs on day of discharge: Laboratory Results - last 24 hr 05/14/23 05/14/23 05/14/23 08:09 08:09 08:09 WBC 6.1 RBC 4.17 L Hgb 10.6 L Hct 34.5 L MCV 82.7 MCH 25.4 L MCHC 30.7 L RDW 16.0 Plt Count 97 L MPV 11.2 Absolute Nucleated RBC 0.000 Nucleated RBC % (auto) 0.0 Sodium 147 H Cancelled Potassium 3.8 Cancelled Chloride 115 H Carbon Dioxide Anion Gap BUN Creatinine Estim Creat Clear Calc Estimated GFR Random Glucose Calcium 05/14/23 05/14/23 05/14/23 08:09 08:09 08:09 WBC RBC Hgb Hct MCV MCH MCHC RDW Plt Count MPV Absolute Nucleated RBC Nucleated RBC % (auto) Sodium Potassium Chloride Cancelled Carbon Dioxide 26 Cancelled Anion Gap 10 L Cancelled BUN 12 Creatinine Estim Creat Clear Calc Estimated GFR Random Glucose Calcium 05/14/23 05/14/23 05/14/23 08:09 08:09 08:09 WBC RBC Hgb Hct MCV MCH MCHC RDW Plt Count MPV Absolute Nucleated RBC Nucleated RBC % (auto) Sodium Potassium Chloride Carbon Dioxide Anion Gap BUN Cancelled Creatinine 0.73 Cancelled Estim Creat Clear Calc 106.0 Cancelled Estimated GFR > 60 Random Glucose Calcium 05/14/23 05/14/23 05/14/23 08:09 08:09 08:09 WBC RBC Hgb Hct MCV MCH MCHC RDW Plt Count MPV Absolute Nucleated RBC Nucleated RBC % (auto) Sodium Potassium Chloride Carbon Dioxide Anion Gap BUN Creatinine Estim Creat Clear Calc Estimated GFR Cancelled Random Glucose 101 Cancelled Calcium 8.7 Cancelled Preliminary micro results at discharge 05/11/23 08:38 Blood Culture - Preliminary Blood - Venous No growth after 48 hours. 05/11/23 08:22 Blood Culture - Preliminary Blood - Venous No growth after 48 hours. Discharge Plan Discharge Anticipated Discharge Date/Time: 05/14/23 10:53 Patient Disposition: er [facility] Discharge Diagnosis: Aspiration pneumonia Sepsis Acute lactic acidosis Referrals: BRIGIDA BALLARD [Primary Care Provider] - 1 Week Discharge Medications: New amoxicillin-pot clavulanate [Augmentin ES-600] 600-42.9 mg/5 mL suspension for reconstitution 7.3 ml PO BID 4 Days Qty: 58.4 0RF Continued Eliquis 5 mg tablet 5 mg feeding tube BID 30 Days Qty: 60 0RF famotidine 40 mg Tablet 40 mg feeding tube DAILY@0900 Qty: 0 0RF aspirin 81 mg Tablet,Chewable 81 mg feeding tube DAILY@0900 Qty: 0 0RF hydrocortisone 5 mg capsule, sprinkle 10 mg PO TID Qty: 30 0RF atropine 1 % Drops 2 drp SUBLINGUAL Q2H PRN (Reason: Secretions) (DME) calcium alginate 4 X 4 Bandage TOPICAL Rx Instructions: CLEASE LEFT AND RIGHT HEEL WITH NS. PAT DRY APPLY ALGINATE COVER AND BORDER GAUZE EVERY SHIFT. Osmolite 1.2 Cristobal 0.06 gram-1.2 kcal/mL Liquid See Rx Instructions .ROUTE .COMPLEX Rx Instructions: 90mL/hr for 20 hours via G-tube; Use at 2pm and down at 10am or until total volume infused. water flush via G-tube pump: 1500 mL in 20 hrs via G-tube docusate sodium 50 mg/5 mL Liquid 100 mg feeding tube BID acetaminophen 650 mg Suppository 650 mg CO Q6H PRN (Reason: Fever Or Pain) acetaminophen 160 mg/5 mL Liquid 640 mg PO QID PRN (Reason: Fever Or Pain) trazodone 50 mg Tablet 25 mg feeding tube BID polyethylene glycol 3350 [Miralax] 17 gram Powder In Packet 17 g feeding tube DAILY midodrine 5 mg Tablet 5 mg PO TID PRN (Reason: low SBP) Rx Instructions: do not give last dose of day after 6PM or within 4 hrs of bedtime; for SBP <100 sennosides [senna] 8.8 mg/5 mL Syrup 10 ml PO BID magnesium hydroxide [Milk of Magnesia] 400 mg/5 mL Suspension 30 ml PO DAILY PRN (Reason: Constipation) valproic acid (as sodium salt) 250 mg/5 mL Solution 1,000 mg feeding tube BEDTIME bisacodyl 10 mg Suppository 10 mg CO DAILY PRN (Reason: Constipation) oxycodone 5 mg Tablet 2.5 mg feeding tube BID PRN (Reason: Severe Pain (Scale Score 7-10)) escitalopram oxalate 20 mg Tablet 20 mg feeding tube BEDTIME cholecalciferol (vitamin D3) [Vitamin D3] 125 mcg (5,000 unit) Tablet 1,250 mcg feeding tube Q28D Chandler 7-7-1.5 gram Powder In Packet 1 ea PO BID Rx Instructions: mix with 120 ml water ProSource Plus 15-100 gram-kcal/30 mL Liquid 1 ea feeding tube DAILY valproic acid (as sodium salt) 250 mg/5 mL solution 750 mg feeding tube DAILY simvastatin 20 mg tablet 20 mg feeding tube DAILY Diet: Advance to usual diet Activity on Discharge: As tolerated Stand Alone Forms: Patient Portal Discharge page Care Plan Goals: Continue treatment for aspiration pneumonia with Augmentin 875 mg (7.3ml liquid suspension) for 4 more days Health Concerns: Aspiration pneumonia Sepsis Acute lactic acidosis Plan of Treatment: Take all medications as prescribed Assessment: See discharge summary
[2023-05-14] MEDS: Hydrocortisone 10 MG TABLET G-TUBE ×2 (12:18→14:37)
--- NOTE | 2023-05-14 13:37 | MHC.CM.PN ---
DP: PT HAS BEEN MEDICALLY CLEARED FOR DC BACK TO [facility]. CENTER AWARE. RN AWARE. FAHEEM HILLMAN UPDATED ON TODAY'S DC. BLS TRANSPORT BOOKED FOR 4 PM VIA [facility]
[2023-05-14 15:40] VITALS: BP 138/65; PULSE 63; RESP 17; TEMP 36.7; O2SAT 96
== END 2023-05-14 16:47 | DRG 720 ==
LOC: HO.ED 10:26 → HO.EDOVER 11:18 → HO.S3 19:46
PROVIDERS: Admitting Provider Student in an Organized Health Care Education/Training Program; Emergency Provider Student in an Organized Health Care Education/Training Program; PCP Emergency Medicine; Visit Provider Nurse Practitioner Acute Care
DX: A41.9 Sepsis, unspecified organism (principal); J69.0 Pneumonitis due to inhalation of food and vomit; E87.21 Acute metabolic acidosis; G30.9 Alzheimer's disease, unspecified; F02.80 Dementia in other diseases classified elsewhere, unspecified severity, without behavioral disturbance, psychotic disturbance, mood disturbance, and anxiety; R65.20 Severe sepsis without septic shock; I48.0 Paroxysmal atrial fibrillation; K82.8 Other specified diseases of gallbladder; I95.1 Orthostatic hypotension; R13.10 Dysphagia, unspecified; E78.5 Hyperlipidemia, unspecified; Z93.1 Gastrostomy status; Z79.01 Long term (current) use of anticoagulants; Z79.82 Long term (current) use of aspirin; Z79.899 Other long term (current) drug therapy
CPT/HCPCS: 36415; 71260; 74177; 76705; 80048; 80053; 81001; 83605; 85025; 85027; 85610; 87040; 99285; C1758; J2543; Q9967

== ENCOUNTER → 2023-05-11 11:14 | Outpatient (BNV) | payer MEDICAID, SELFPAY | PROVIDERS: Admitting Provider Student in an Organized Health Care Education/Training Program; Emergency Provider Student in an Organized Health Care Education/Training Program; PCP Emergency Medicine; Visit Provider Student in an Organized Health Care Education/Training Program | DX: A41.9 Sepsis, unspecified organism (principal); R65.20 Severe sepsis without septic shock; J18.9 Pneumonia, unspecified organism | CPT/HCPCS: 99223; 99232; 99239 ==

== ENCOUNTER → 2023-05-11 11:14 | Outpatient (BNV) | payer MEDICAID, SELFPAY | PROVIDERS: Admitting Provider Student in an Organized Health Care Education/Training Program; Emergency Provider Student in an Organized Health Care Education/Training Program; PCP Emergency Medicine; Visit Provider Surgery | DX: K82.8 Other specified diseases of gallbladder (principal) | CPT/HCPCS: 99222; 99232 ==

== ENCOUNTER 2023-10-11 15:44 | Emergency (ER) | payer MEDICAID, SELFPAY ==
[2023-10-11] VITALS (9 sets, daily range): BP systolic 118–158; BP diastolic 61–91; PULSE 61–82; RESP 13–20; TEMP 36.7–38.4; O2SAT 94–98; BMI 26.4
--- NOTE | ~2023-10-11 | XR_ITS ---
EXAMINATION: XR CHEST CLINICAL INFORMATION: Dyspnea aspiration pneumonia COMPARISON: Prior chest x-ray May 2023 TECHNIQUE: Frontal view of the chest was obtained. FINDINGS: Lungs and pleural spaces: Right lung clear. Left lung subtle opacity at the left base less than previous. Cardiac mediastinal silhouette normal. Osteoarthritis of the acromioclavicular joints bilaterally XR/XR chest 1V IMPRESSION: Subtle opacity at the left base less than previous. This could reflect atelectasis or resolving pneumonia. Cannot exclude recurrent infiltrate
--- NOTE | ~2023-10-11 | CT_ITS ---
EXAMINATION: CT HEAD WITHOUT CONTRAST CLINICAL INFORMATION: Mental status change COMPARISON: 09/20/2020 TECHNIQUE: Contiguous axial imaging was performed from the skull base to vertex without intravenous administration of contrast. This CT examination was performed using dose optimization techniques as appropriate, variously including the following: *Automated exposure control *Adjustment of mA and/or kV according to patient size (this includes techniques or standardized protocols for targeted exams where dose is matched to indication/reason for exam; i.e. extremities or head) *Use of iterative reconstruction technique DLP: 785 mGy-cm FINDINGS: Severe central and cortical atrophy. 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 No mass or extra-axial collection. Pronounced bifrontal atrophy is evident. Temporal horns appear noticeably larger in the interim. No brainstem or cerebellar abnormality. No calvarial abnormality. Sinuses and mastoid air cells clear. CT/CT head/brain wo IV con IMPRESSION: Progressive ventriculomegaly suggesting hydrocephalus. Neurologic/no surgical assessment recommended. Stable relatively pronounced central and cortical atrophy as above.
--- NOTE | 2023-10-11 16:09 | ED.GENADULT ---
HPI - General Adult General Chief complaint: Fever Stated complaint: fever Time Seen by Provider: 10/11/23 16:03 Source: RN notes reviewed Limitations: other (History of dementia, limited verbal response his baseline) History of Present Illness HPI narrative: 67-year-old male who has a history of dementia, aspiration pneumonia, history of sepsis, AFib on Eliquis, orthostatic hypotension, history of PEG tube, presents for nursing facility for evaluation of fever. According to EMS and nursing staff, the patient noted to have generalized decline over the past several days. He apparently had an outpatient chest x-ray as there were no suspicions for aspiration pneumonia. The x-ray was apparently negative at that time. Patient apparently was also having difficulty tolerating his secretions as well as low-grade temperature and was therefore sent to the emergency department for further evaluation. History is obtained by the patient's chart, EMS and nursing. Related Data Home Medications ?Medication ?Instructions ?Recorded ?Confirmed atropine 1 % eye drops 2 drp sublingual Q2H PRN Secretions 02/07/21 05/11/23 calcium alginate 4 X 4 bandage 02/07/21 02/07/21 nutritional supplements 0.06 See Rx Instructions .Route .COMPLEX 02/07/21 05/11/23 gram-1.2 kcal/mL oral liquid (Osmolite 1.2 Cristobal) acetaminophen 160 mg/5 mL oral 640 mg PO QID PRN Fever Or Pain 05/11/23 05/11/23 liquid acetaminophen 650 mg rectal 650 mg DC Q6H PRN Fever Or Pain 05/11/23 05/11/23 suppository amino ac-protein hydro-whey 1 ea feeding tube DAILY 05/11/23 05/11/23 protein 15 gram-100 kcal/30 mL oral liquid (ProSource Plus) arginine 7 gram-glutamine 7 1 ea PO BID 05/11/23 05/11/23 gram-calcium HMB 1.5 gram oral powder pack (Chandler) bisacodyl 10 mg rectal suppository 10 mg DC DAILY PRN Constipation 05/11/23 05/11/23 cholecalciferol (vitamin D3) 125 1,250 mcg feeding tube Q28D 05/11/23 05/11/23 mcg (5,000 unit) tablet (Vitamin D3) docusate sodium 50 mg/5 mL oral 100 mg feeding tube BID 05/11/23 05/11/23 liquid escitalopram oxalate 20 mg tablet 20 mg feeding tube BEDTIME 05/11/23 05/11/23 magnesium hydroxide 400 mg/5 mL 30 ml PO DAILY PRN Constipation 05/11/23 05/11/23 oral suspension (Milk of Magnesia) midodrine 5 mg tablet 5 mg PO TID PRN low SBP 05/11/23 05/11/23 oxycodone 5 mg tablet 2.5 mg feeding tube BID PRN Severe 05/11/23 05/11/23 Pain (Scale Score 7-10) polyethylene glycol 3350 17 gram 17 g feeding tube DAILY 05/11/23 05/11/23 oral powder packet (Miralax) sennosides 8.8 mg/5 mL oral syrup 10 ml PO BID 05/11/23 05/11/23 (senna) simvastatin 20 mg tablet 20 mg feeding tube DAILY 05/11/23 05/11/23 trazodone 50 mg tablet 25 mg feeding tube BID 05/11/23 05/11/23 valproic acid (as sodium salt) 250 1,000 mg feeding tube BEDTIME 05/11/23 05/11/23 mg/5 mL oral solution valproic acid (as sodium salt) 250 750 mg feeding tube DAILY 05/11/23 05/11/23 mg/5 mL oral solution Previous Rx's ?Medication ?Instructions ?Recorded apixaban 5 mg tablet (Eliquis) 5 mg feeding tube BID 30 days #60 09/17/20 tabs aspirin 81 mg chewable tablet 81 mg feeding tube DAILY@0900 #0 09/17/20 tabs famotidine 40 mg tablet 40 mg feeding tube DAILY@0900 #0 09/17/20 tabs hydrocortisone 5 mg sprinkle 10 mg (2 x 5 mg) PO TID #30 caps 09/26/20 capsule amoxicillin 600 mg-potassium 7.3 ml PO BID 4 days #58.4 mL 05/14/23 clavulanate 42.9 mg/5 mL oral suspension (Augmentin ES-) amoxicillin 600 mg-potassium 7.3 ml feeding tube BID 7 days 10/11/23 clavulanate 42.9 mg/5 mL oral #105 mL suspension (Augmentin ES-) Allergies Allergy/AdvReac Type Severity Reaction Status Date / Time atenolol Allergy Unknown Verified 10/11/23 15:58 duloxetine [From Cymbalta] Allergy Unknown Verified 10/11/23 15:58 ibuprofen Allergy Unknown Verified 10/11/23 15:58 levofloxacin [From Levaquin] Allergy Unknown Verified 10/11/23 15:58 Review of Systems Review of Systems: Unable to obtain. Patient essentially nonverbal. Positive for fever according to chart. [facility], [facility] Past Medical History Source: unable to obtain Medical History Glaucoma Alzheimer disease G tube feedings Dysphagia Deep vein thrombosis (DVT) Mood disorder Afib HTN (hypertension) Advanced dementia Social History Social History Household Members: Unknown / Unable to assess Housing: Unknown / Unable to assess Do you presently have visiting nurse or other home services: No (unknown) Unable to assess alcohol history related to: Unable to respond Alcohol intake: unknown Comment: 1:1 Patient Tobacco Use Status: Tobacco use Unknown Use of substances other than those prescribed or required for medical reasons: Unable to respond Advance Directives: Yes Advance Directives on File: Yes Advance Directives Date on File: 08/05/20 Do you have a plan to hurt others: No Plan service: No Current occupational status: retired Physical Exam ED Vital Signs: Vital Signs - 24 hr 10/11/23 15:51 10/11/23 17:15 10/11/23 18:45 Temperature 101.1 F H 99.9 F Pulse Rate 80 80 74 Respiratory Rate 18 16 16 Blood Pressure 142/68 H 155/91 H Pulse Oximetry 95 95 98 Oxygen Delivery Method Room Air Room Air Room Air 10/11/23 19:17 10/11/23 19:33 10/11/23 22:00 Temperature Pulse Rate 61 61 68 Respiratory Rate 20 13 19 Blood Pressure 158/80 H 156/82 H 141/61 H Pulse Oximetry 96 96 96 Oxygen Delivery Method Room Air Room Air Room Air 10/11/23 22:06 10/11/23 23:35 Temperature 98.0 F 98.5 F Pulse Rate 68 Respiratory Rate 19 Blood Pressure 141/61 H Pulse Oximetry 96 Oxygen Delivery Method Room Air BMI result Body Mass Index 26.4 Const Other: Awake, makes eye contact HENMT Other: Clear secretions at the mouth, easily suctioned. No obvious foreign body. No stridor. Patient is able to tolerate some secretions however appears to be containing in his mouth. Resp Other: Diminished throughout, no obvious wheezing GI Other: Abdomen is soft and nontender. Peg tube is intact without any dressing. The patient had a abdominal binder over it. Extrem Other: No pedal edema Course Course Course Narrative: CT of the brain returned, no acute process. Viral respiratory tests are negative. Chest x-ray concern for pneumonia. The patient is hemodynamically stable. He is not hypoxic, there is no leukocytosis and lactic acid is normal. Patient was seen evaluated by Dr. Brown from the hospitalist team. Patient may be discharged back to nursing facility. Agrees with Augmentin via PEG tube. Medications Administered Discontinued Medications Generic Name Dose Route Start Last Admin Trade Name Freq PRN Reason Stop Dose Admin Acetaminophen 650 mg 10/11/23 16:22 10/11/23 17:05 Acetaminophen Supp 650 Mg Supp.Rect DC 10/11/23 16:23 650 mg ONCE ONE Administration Piperacillin Sod/Tazobactam 50 mls @ 100 mls/hr 10/11/23 16:25 10/11/23 17:40 Sod 3.375 gm/ Sodium Chloride IV 10/11/23 16:54 Infused ONCE ONE Infusion Sodium Chloride 2,646 mls @ 2,646 mls/hr 10/11/23 16:26 10/11/23 19:00 Ns 30 ml/kg infuse over 1 hr (2646 ml) 10/11/23 17:25 Infused IV Infusion .Q1H STA Medical Decision Making Medical Decision Making [facility] Narrative: 67-year-old male with a history of dementia, aspiration pneumonia, AFib on Eliquis, presents with fever and concern of possible aspiration pneumonia. Concern for possible sepsis, alert initiated, patient receiving IV fluids and antibiotics. Patient will likely need to be brought into the hospital for further evaluation and management. Oxygen saturation is maintained as well as blood pressure. Rectal Tylenol. CT brain to rule out any acute CVA that may contribute to the patient's condition. Differential Diagnosis Differential Diagnoses: The differential diagnosis associated with the presentation includes Sepsis Pneumonia Bacteremia CVA Dehydration Metabolic abnormality Admission/Observation Consideration of admission/observation: Escalation of care including admission/observation considered Lab Data [facility] Lab Attestation statement: I reviewed the patient's lab results. 10/11/23 16:57 10/11/23 16:57 Labs: Lab Results 10/11/23 10/11/23 10/11/23 Range/Units 16:28 16:57 18:44 WBC 7.2 (4.8-10.8) X10*3/uL RBC 5.09 D (4.60-5.80) X10*6/uL Hgb 13.6 L D (14.0-18.0) g/dl Hct 43.5 D (42.0-52.0) % MCV 85.5 (80.0-98.0) fL MCH 26.7 L (27.0-33.0) pg MCHC 31.3 (31.0-36.0) g/dl RDW 16.6 H (11.0-16.0) % Plt Count 148 L D (160-400) X10*3/uL MPV 9.7 (9.4-12.4) fL Immature Gran % (Auto) 0.7 H (0.0-0.4) % Neut % (Auto) 72.4 (45-73) % Lymph % (Auto) 13.0 L (20-40) % Loup % (Auto) 13.6 H (2-11) % Eos % (Auto) 0.3 (0-4) % Baso % (Auto) 0.0 (0-2) % Lymph # (Auto) 0.9 L (1.2-4.9) X10*3/uL Loup # (Auto) 1.0 (0.1-1.2) X10*3/uL Eos # (Auto) 0.0 (0.0-0.4) X10*3/uL Baso # (Auto) 0.0 (0.0-0.2) X10*3/uL Abs Immat Gran (auto) 0.05 H (0.00-0.03) X10*3/uL Absolute Neuts (auto) 5.2 (2.0-8.3) x10*3/uL Absolute Nucleated RBC 0.000 (0.0-0.012) X10*3/uL Nucleated RBC % (auto) 0.0 (0.0-0.2) /100WBC Sodium 145 (135-145) mmol/L Potassium 4.2 (3.3-5.1) mmol/L Chloride 111 H (96-108) mmol/L Carbon Dioxide 26 (22-29) mmol/L Anion Gap 12 (12-20) BUN 19 H (9-16) mg/dL Creatinine 0.77 (0.5-1.4) mg/dL Estim Creat Clear Calc 103.5 Estimated GFR > 60 Random Glucose 81 (60-115) mg/dL Lactic Acid 1.4 (0.5-2.0) mmol/L Calcium 9.2 (8.4-10.2) mg/dL Magnesium 2.1 (1.6-2.6) mg/dL Total Bilirubin 0.6 (0.0-1.0) mg/dL AST 25 (5-37) U/L ALT 11 (0-40) U/L Alkaline Phosphatase 82 (39-117) U/L Ammonia 56 H (13-55) umol/L Troponin I High Sens 3.9 (<3.5-35.0) ng/L Total Protein 7.2 (6.5-8.0) g/dL Albumin 3.1 L (3.5-5.0) g/dL Urine Color Yellow Urine Appearance Clear Urine pH 8.0 (5.0-9.0) Ur Specific Sterling 1.020 (1.005-1.025) Urine Protein Negative (Neg-Trace) mg/dL Urine Glucose (UA) Negative (Negative) mg/dL Urine Ketones Negative (Negative) mg/dL Urine Blood Small (1+) H (Negative) Urine Nitrite Negative (Negative) Ur Leukocyte Esterase Small (1+) H (Negative) Urine RBC 0-2 (0-2) /HPF Urine WBC 0-5 (0-5) /HPF Ur Squamous Epith Cells 0-2 (0-2) /HPF Urine Bacteria 2+ (None Seen) Hyaline Casts 0-2 (0-2) /LPF Influenza Type A (PCR) NEGATIVE (Negative) Influenza Type B (PCR) NEGATIVE (Negative) RSV RNA Qual (PCR) NEGATIVE (Negative) SARS-CoV-2 RNA (RT-PCR) NEGATIVE (Negative) Independent Interpretation I performed an independent interpretation of an: EKG Interpretation: Sinus at 76 beats per minute without any acute ischemic changes. Radiology Impression Discussion of test interpretation with radiology: I have reviewed the radiologist's reading. Radiologist Impression: [facility] [address] [place] [address] XRay Report Signed Patient: Sadie Sharp MR#: [id number] : 1955 Acct:[id number] Age/Sex: 67 / M ADM Date: 10/11/23 Loc: .ED Attending Dr: Ordering Physician: Pablo Kellogg Date of Service: 10/11/23 Procedure(s): XR chest 1V Accession Number(s): [id number] cc: Bharat Yoon MD; Pablo Kellogg~ EXAMINATION: XR CHEST CLINICAL INFORMATION: Dyspnea aspiration pneumonia COMPARISON: Prior chest x-ray May 2023 TECHNIQUE: Frontal view of the chest was obtained. FINDINGS: Lungs and pleural spaces: Right lung clear. Left lung subtle opacity at the left base less than previous. Cardiac mediastinal silhouette normal. Osteoarthritis of the acromioclavicular joints bilaterally XR/XR chest 1V IMPRESSION: Subtle opacity at the left base less than previous. This could reflect atelectasis or resolving pneumonia. Cannot exclude recurrent infiltrate Dictated By: Edin Mccarty MD Signed By: <Electronically signed by Edin Mccatry MD in OV> 10/11/231930 DD/ 54 TD/TT: Block Cuber: NICHOLAS Discharge Plan Discharge Clinical Impression: Pneumonia Qualifiers: Pneumonia type: aspiration pneumonia Aspiration pneumonia type: unspecified Laterality: left Patient Disposition: Xfer SNF Instructions: Pneumonia (ED) Additional Instructions: Augmentin as directed. Finish all antibiotics. Aspiration precautions. Follow-up with your primary care provider. Call this week to schedule a follow-up appointment. Return to the emergency department if you have any worsening of symptoms, or any concerns. Get well soon! Prescriptions: New amoxicillin-pot clavulanate [Augmentin ES-600] 600-42.9 mg/5 mL suspension for reconstitution 7.3 ml feeding tube BID 7 Days Qty: 105 0RF No Action Eliquis 5 mg tablet 5 mg feeding tube BID 30 Days Qty: 60 0RF famotidine 40 mg Tablet 40 mg feeding tube DAILY@0900 Qty: 0 0RF aspirin 81 mg Tablet,Chewable 81 mg feeding tube DAILY@0900 Qty: 0 0RF hydrocortisone 5 mg capsule, sprinkle 10 mg PO TID Qty: 30 0RF atropine 1 % Drops 2 drp SUBLINGUAL Q2H PRN (Reason: Secretions) (DME) calcium alginate 4 X 4 Bandage TOPICAL Rx Instructions: CLEASE LEFT AND RIGHT HEEL WITH NS. PAT DRY APPLY ALGINATE COVER AND BORDER GAUZE EVERY SHIFT. Osmolite 1.2 Cristobal 0.06 gram-1.2 kcal/mL Liquid See Rx Instructions .ROUTE .COMPLEX Rx Instructions: 90mL/hr for 20 hours via G-tube; Use at 2pm and down at 10am or until total volume infused. water flush via G-tube pump: 1500 mL in 20 hrs via G-tube docusate sodium 50 mg/5 mL Liquid 100 mg feeding tube BID acetaminophen 650 mg Suppository 650 mg DC Q6H PRN (Reason: Fever Or Pain) acetaminophen 160 mg/5 mL Liquid 640 mg PO QID PRN (Reason: Fever Or Pain) trazodone 50 mg Tablet 25 mg feeding tube BID polyethylene glycol 3350 [Miralax] 17 gram Powder In Packet 17 g feeding tube DAILY midodrine 5 mg Tablet 5 mg PO TID PRN (Reason: low SBP) Rx Instructions: do not give last dose of day after 6PM or within 4 hrs of bedtime; for SBP <100 sennosides [senna] 8.8 mg/5 mL Syrup 10 ml PO BID magnesium hydroxide [Milk of Magnesia] 400 mg/5 mL Suspension 30 ml PO DAILY PRN (Reason: Constipation) valproic acid (as sodium salt) 250 mg/5 mL Solution 1,000 mg feeding tube BEDTIME bisacodyl 10 mg Suppository 10 mg DC DAILY PRN (Reason: Constipation) oxycodone 5 mg Tablet 2.5 mg feeding tube BID PRN (Reason: Severe Pain (Scale Score 7-10)) escitalopram oxalate 20 mg Tablet 20 mg feeding tube BEDTIME cholecalciferol (vitamin D3) [Vitamin D3] 125 mcg (5,000 unit) Tablet 1,250 mcg feeding tube Q28D Chandler 7-7-1.5 gram Powder In Packet 1 ea PO BID Rx Instructions: mix with 120 ml water ProSource Plus 15-100 gram-kcal/30 mL Liquid 1 ea feeding tube DAILY valproic acid (as sodium salt) 250 mg/5 mL solution 750 mg feeding tube DAILY simvastatin 20 mg tablet 20 mg feeding tube DAILY amoxicillin-pot clavulanate [Augmentin ES-600] 600-42.9 mg/5 mL suspension for reconstitution 7.3 ml PO BID 4 Days Qty: 58.4 0RF Interventions: ED Discharge Assessment Last Done: 10/11/23 23:35 Discharge Date/Time: 10/11/23 23:37 Print Language: [place]
--- NOTE | 2023-10-11 16:21 | ECG_ITS ---
Test Reason : ?SEPSIS Blood Pressure : / mmHG Vent. Rate : 076 BPM Atrial Rate : 076 BPM P-R Int : 170 ms QRS Dur : 080 ms QT Int : 388 ms P-R-T Axes : 071 -53 059 degrees QTc Int : 436 ms Normal sinus rhythm Left axis deviation Abnormal ECG When compared with ECG of 20-SEP-2020 14:36, Vent. rate has decreased BY 80 BPM T wave amplitude has decreased in Inferior leads Nonspecific T wave abnormality now evident in Anterior leads Referred By: Pablo Kellogg Electronically Signed By:GARCIA WALL MD
[2023-10-11 17:04] LABS: MANUAL DIFF FLAG NO
[2023-10-11] MEDS: Acetaminophen Supp 650 MG SUPP.RECT PR (17:05)
[2023-10-11] MEDS: Piperacillin Sodium/Tazobactam 3.375 GM in 0.9 % Sodium Chloride 50 ML IV (17:05)
--- NOTE | 2023-10-11 17:08 | PC.NURSE ---
ABX delayed to be hung, patient difficult stick, contracted in bed, provider aware of delay.
[2023-10-11 17:21] LABS: Eosinophils Percent Auto 0.3 % (0-4); Hematocrit 43.5 % (42.0-52.0); Hemoglobin 13.6 g/dl (14.0-18.0); Imm Gran Abs Auto 0.05 X10*3/uL (0.00-0.03); Imm Gran Pct Auto 0.7 % (0.0-0.4); Lymphocytes Absolute Auto 0.9 X10*3/uL (1.2-4.9); Mean Corpuscular HGB Conc 31.3 g/dl (31.0-36.0); Mean Corpuscular Hemoglobin 26.7 pg (27.0-33.0); Mean Corpuscular Volume 85.5 fL (80.0-98.0); Mean Platelet Volume 9.7 fL (9.4-12.4); Monocytes Percent Auto 13.6 % (2-11); Neutrophils Absolute Auto 5.2 x10*3/uL (2.0-8.3); Neutrophils Percent Auto 72.4 % (45-73); Platelet Count 148 X10*3/uL (160-400); Red Blood Count 5.09 X10*6/uL (4.60-5.80); Red Cell Distribution Width 16.6 % (11.0-16.0); White Blood Count 7.2 X10*3/uL (4.8-10.8)
[2023-10-11 17:28] LABS: Influenza A PCR NEGATIVE (Negative); Influenza B PCR NEGATIVE (Negative); Resp Syncy Virus RNA Qual PCR NEGATIVE (Negative); SARS COV2 PCR INHOUSE NEGATIVE (Negative)
[2023-10-11 17:32] LABS: Ammonia 56 umol/L (13-55)
[2023-10-11 17:35] LABS: Lactic Acid 1.4 mmol/L (0.5-2.0)
[2023-10-11 17:42] LABS: Alanine Aminotransferase 11 U/L (0-40); Albumin Level 3.1 g/dL (3.5-5.0); Alkaline Phosphatase 82 U/L (39-117); Anion Gap 12 (12-20); Aspartate Amino Transferase 25 U/L (5-37); Bilirubin Total 0.6 mg/dL (0.0-1.0); Blood Urea Nitrogen 19 mg/dL (9-16); Calcium 9.2 mg/dL (8.4-10.2); Carbon Dioxide 26 mmol/L (22-29); Chloride 111 mmol/L (96-108); Creatinine Clr Calc Pharmacy 103.5; Estimated Glomerular Filt Rate > 60; Glucose Random 81 mg/dL (60-115); Magnesium 2.1 mg/dL (1.6-2.6); Potassium 4.2 mmol/L (3.3-5.1); Sodium 145 mmol/L (135-145); Total Protein 7.2 g/dL (6.5-8.0)
[2023-10-11 17:49] LABS: Troponin-I High Sensitivity 3.9 ng/L (<3.5-35.0)
--- NOTE | 2023-10-11 18:52 | PC.NURSE ---
Upon EMS transfer, EMT noted that patient's Gtube was clamped with binder clip from [facility]. Binder clip exchanged for available ritu valve. Patient straight cathed for OP of 400ccs, aurea cloudy urine, sent to lab. Patient continues to drool/cough/ have significant clear secretions.
[2023-10-11 19:23] LABS: Appearance Urine Clear; Color Urine Yellow; Glucose Urine UA Negative (Negative); Leukocyte Esterase Urine Small (1+) (Negative); Nitrite Urine Negative (Negative); UMIC TRIGGER UACC YES; Urine Blood Small (1+) (Negative); Urine Ketones Negative (Negative); Urine Protein Negative (Neg-Trace)
[2023-10-11 19:45] LABS: Bacteria Urine 2+ (None Seen); Hyaline Casts Urine 0-2 /LPF (0-2); RBC Urine 0-2 /HPF (0-2); Squamous Epithelial Cell Urine 0-2 /HPF (0-2); UACC Culture Trigger YES; WBC Urine 0-5 /HPF (0-5)
--- NOTE | 2023-10-11 20:31 | PC.NURSE ---
Gave report to Bharat at [facility], all questions answered, informed Bharat Teravaccamila is going back with ritu price on.
--- NOTE | 2023-10-11 20:58 | PC.NURSE ---
Spoke to patient's sister Yu, gave update, informed [facility]. All questions answered.
== END 2023-10-11 23:37 | disposition skilled nursing facility (03) ==
PROVIDERS: Physician Assistant; Emergency Provider Emergency Medicine Emergency Medical Services; PCP Emergency Medicine
DX: J69.0 Pneumonitis due to inhalation of food and vomit (principal); Z03.818 Encounter for observation for suspected exposure to other biological agents ruled out; I95.1 Orthostatic hypotension; I48.91 Unspecified atrial fibrillation; I10 Essential (primary) hypertension; G30.9 Alzheimer's disease, unspecified; F02.80 Dementia in other diseases classified elsewhere, unspecified severity, without behavioral disturbance, psychotic disturbance, mood disturbance, and anxiety; Z86.718 Personal history of other venous thrombosis and embolism; Z93.1 Gastrostomy status; Z79.01 Long term (current) use of anticoagulants
CPT/HCPCS: 0241U; 36415; 70450; 71045; 80053; 81001; 81003; 82140; 83605; 83735; 84484; 85025; 87040; 87086; 87088; 87147; 87186; 87205; 93005; 96360; 96361; 96365; 99285; J2543

== ENCOUNTER → 2023-10-11 16:21 | Outpatient (BNV) | payer MEDICAID, SELFPAY | PROVIDERS: Emergency Provider Emergency Medicine Emergency Medical Services; PCP Emergency Medicine; Visit Provider Internal Medicine Cardiovascular Disease | DX: R94.31 Abnormal electrocardiogram [ECG] [EKG] (principal) | CPT/HCPCS: 93010 ==

== ENCOUNTER 2023-10-13 14:02 | Emergency (ER) | payer MEDICAID, SELFPAY ==
--- NOTE | ~2023-10-13 | XR_ITS ---
EXAMINATION: XR ABDOMEN KUB CLINICAL INDICATION: Evaluate tube placement COMPARISON: None available. TECHNIQUE: Supine frontal portable view of the abdomen. FINDINGS: There is a gastrostomy projecting over the midline. There is contrast outlining the stomach, pylorus and second portion of duodenum. There is no extraluminal contrast. There is gas within the colon to level of the descending colon. There has been right hip replacement. XR/XR KUB IMPRESSION: Contrast opacifies the stomach and portions of the duodenum. No extravasation demonstrated
[2023-10-13 14:10] VITALS: BP 113/47; BP 137/92; PULSE 101; PULSE 98; RESP 20; O2SAT 96; O2SAT 97; BMI 27.1
[2023-10-13 14:20] VITALS: BP 113/47; PULSE 98; RESP 20; O2SAT 97
--- NOTE | 2023-10-13 14:24 | PC.NURSE ---
Pt comes to ED from SNF with need for care to a dislodged G tube. Per facility transfer paperwork, tube was dislodged during Pt care. EMS reports that facility states Pt is non-verbal at baseline. VSS. DSG noted to upper abd. Pt does not respond to verbal stimuli, but physically reactive to tactile stimuli. Pt garbles speech with no distinct words. Pt alternates between sleep/snoring and coughing. EMS reports Pt was seen here 2 days ago for pneumonia. Awaiting orders.
[2023-10-13 14:42] VITALS: TEMP 36.4
[2023-10-13] MEDS: Diatrizoate Meglumine, Sodium 30 ML SOLUTION PO (15:24)
--- NOTE | 2023-10-13 15:33 | PM.CNGS ---
History of Present Illness Consult details Consult date: 10/13/23 Narrative: 67-year-old male with history of dementia, atrial fibrillation, on anticoagulation and bed-bound, sent to the ER from the group home because of tube dislodgement. He had a PEG tube placed in 2020. This apparently was dislodged today although it is uncertain as to exactly when this happened. The ED physician attempted to replace the PEG tube was unable to do so so I was consulted. The patient is nonverbal and noncommunicative. Review of Systems Review of Systems: Yes Unobtainable due to mental condition and Unobtainable due to mental status PMFSH Past Medical History Medical History PEG tube malfunction Glaucoma Alzheimer disease G tube feedings Dysphagia Deep vein thrombosis (DVT) Mood disorder Afib HTN (hypertension) Advanced dementia Social History Social History Household Members: Unknown / Unable to assess Housing: Unknown / Unable to assess Do you presently have visiting nurse or other home services: No (unknown) Unable to assess alcohol history related to: Unable to respond Alcohol intake: unknown Comment: 1:1 Patient Tobacco Use Status: Tobacco use Unknown Smoked in Last 30 Days: No Use of substances other than those prescribed or required for medical reasons: No Advance Directives: Yes Advance Directives on File: Yes Advance Directives Date on File: 08/05/20 Do you have a plan to hurt others: No Plan service: No Current occupational status: retired Meds Allergies Allergy/AdvReac Type Severity Reaction Status Date / Time atenolol Allergy Unknown Verified 10/13/23 14:14 duloxetine [From Cymbalta] Allergy Unknown Verified 10/13/23 14:14 ibuprofen Allergy Unknown Verified 10/13/23 14:14 levofloxacin [From Levaquin] Allergy Unknown Verified 10/13/23 14:14 Home Medications ?Medication ?Instructions ?Recorded ?Confirmed ?Last Taken ?Type atropine 1 % eye drops 2 drp sublingual Q2H PRN Secretions 02/07/21 05/11/23 Unknown History calcium alginate 4 X 4 bandage 02/07/21 02/07/21 Unknown History nutritional supplements 0.06 See Rx Instructions .Route .COMPLEX 02/07/21 05/11/23 Unknown History gram-1.2 kcal/mL oral liquid (Osmolite 1.2 Cristobal) acetaminophen 160 mg/5 mL oral 640 mg PO QID PRN Fever Or Pain 05/11/23 05/11/23 Unknown History liquid acetaminophen 650 mg rectal 650 mg [place] Q6H PRN Fever Or Pain 05/11/23 05/11/23 Unknown History suppository amino ac-protein hydro-whey 1 ea feeding tube DAILY 05/11/23 05/11/23 Unknown History protein 15 gram-100 kcal/30 mL oral liquid (ProSource Plus) arginine 7 gram-glutamine 7 1 ea PO BID 05/11/23 05/11/23 Unknown History gram-calcium HMB 1.5 gram oral powder pack (Chandler) bisacodyl 10 mg rectal suppository 10 mg [place] DAILY PRN Constipation 05/11/23 05/11/23 Unknown History cholecalciferol (vitamin D3) 125 1,250 mcg feeding tube Q28D 05/11/23 05/11/23 Unknown History mcg (5,000 unit) tablet (Vitamin D3) docusate sodium 50 mg/5 mL oral 100 mg feeding tube BID 05/11/23 05/11/23 Unknown History liquid escitalopram oxalate 20 mg tablet 20 mg feeding tube BEDTIME 05/11/23 05/11/23 Unknown History magnesium hydroxide 400 mg/5 mL 30 ml PO DAILY PRN Constipation 05/11/23 05/11/23 Unknown History oral suspension (Milk of Magnesia) midodrine 5 mg tablet 5 mg PO TID PRN low SBP 05/11/23 05/11/23 Unknown History oxycodone 5 mg tablet 2.5 mg feeding tube BID PRN Severe 05/11/23 05/11/23 Unknown History Pain (Scale Score 7-10) polyethylene glycol 3350 17 gram 17 g feeding tube DAILY 05/11/23 05/11/23 Unknown History oral powder packet (Miralax) sennosides 8.8 mg/5 mL oral syrup 10 ml PO BID 05/11/23 05/11/23 Unknown History (senna) simvastatin 20 mg tablet 20 mg feeding tube DAILY 05/11/23 05/11/23 Unknown History trazodone 50 mg tablet 25 mg feeding tube BID 05/11/23 05/11/23 Unknown History valproic acid (as sodium salt) 250 1,000 mg feeding tube BEDTIME 05/11/23 05/11/23 Unknown History mg/5 mL oral solution valproic acid (as sodium salt) 250 750 mg feeding tube DAILY 05/11/23 05/11/23 Unknown History mg/5 mL oral solution Physical Exam Vital Signs: Vital Signs: Last Vital Signs Temp 97.5 F 10/13/23 14:42 Pulse 98 10/13/23 14:20 Resp 20 10/13/23 14:20 BP 113/47 L 10/13/23 14:20 Pulse Ox 97 10/13/23 14:20 O2 Del Method Room Air 10/13/23 14:20 BMI result Body Mass Index 27.1 Const: Other: Not communicative, nonverbal, eyes are closed Resp: Other: Mildly short of breath Cardio: Rhythm: abnormal rhythm GI: Other: Peg site clean Palpation (GI): Soft to palpation, not firm and nontender Results Labs Labs: All other labs normal. Assessment and Plan (1) PEG tube malfunction: Status: Acute The PEG tube was apparently dislodged. I was able to reinsert a 16Fr CELESTE tube. The skin opening seemed to be tight but I was able to advance the tube through this. He is note of bilious backflow I checked a KUB with Gastrografin contrast into the PEG tube and the contrast appeared to be intraluminal confirming good positioning of the PEG tube. The PEG tube can be used again. Above was discussed with the ER. Procedures Date of Service Date of Service: 10/17/23
--- NOTE | 2023-10-13 15:37 | ED.GENADULT ---
HPI - General Adult General Chief complaint: General Medical Stated complaint: From SNF, needs g-tube replaced Time Seen by Provider: 10/13/23 14:31 Source: EMS and old records reviewed Mode of arrival: EMS Limitations: altered mental status History of Present Illness ED Provider: SIMONA RODRIGUEZ narrative: 67 yo male with PMH of afib on eliquis, dementia, PEG tube 2020, constipation, HTN who was having regular care done when his PEG tube fell out - no vomiting, no diarrhea reported no bleeding at site. Unsure how long this was out for MD complaint: disloged feeding tube Onset (ago): unknown Location: abdomen Radiation: non-radiation Severity: mild Relieving factors: none Exacerbating factors: none Associated symptoms: denies other symptoms Treatments prior to arrival: none Related Data Home Medications ?Medication ?Instructions ?Recorded ?Confirmed atropine 1 % eye drops 2 drp sublingual Q2H PRN Secretions 02/07/21 05/11/23 calcium alginate 4 X 4 bandage 02/07/21 02/07/21 nutritional supplements 0.06 See Rx Instructions .Route .COMPLEX 02/07/21 05/11/23 gram-1.2 kcal/mL oral liquid (Osmolite 1.2 Cristobal) acetaminophen 160 mg/5 mL oral 640 mg PO QID PRN Fever Or Pain 05/11/23 05/11/23 liquid acetaminophen 650 mg rectal 650 mg [place] Q6H PRN Fever Or Pain 05/11/23 05/11/23 suppository amino ac-protein hydro-whey 1 ea feeding tube DAILY 05/11/23 05/11/23 protein 15 gram-100 kcal/30 mL oral liquid (ProSource Plus) arginine 7 gram-glutamine 7 1 ea PO BID 05/11/23 05/11/23 gram-calcium HMB 1.5 gram oral powder pack (Chandler) bisacodyl 10 mg rectal suppository 10 mg [place] DAILY PRN Constipation 05/11/23 05/11/23 cholecalciferol (vitamin D3) 125 1,250 mcg feeding tube Q28D 05/11/23 05/11/23 mcg (5,000 unit) tablet (Vitamin D3) docusate sodium 50 mg/5 mL oral 100 mg feeding tube BID 05/11/23 05/11/23 liquid escitalopram oxalate 20 mg tablet 20 mg feeding tube BEDTIME 05/11/23 05/11/23 magnesium hydroxide 400 mg/5 mL 30 ml PO DAILY PRN Constipation 05/11/23 05/11/23 oral suspension (Milk of Magnesia) midodrine 5 mg tablet 5 mg PO TID PRN low SBP 05/11/23 05/11/23 oxycodone 5 mg tablet 2.5 mg feeding tube BID PRN Severe 05/11/23 05/11/23 Pain (Scale Score 7-10) polyethylene glycol 3350 17 gram 17 g feeding tube DAILY 05/11/23 05/11/23 oral powder packet (Miralax) sennosides 8.8 mg/5 mL oral syrup 10 ml PO BID 05/11/23 05/11/23 (senna) simvastatin 20 mg tablet 20 mg feeding tube DAILY 05/11/23 05/11/23 trazodone 50 mg tablet 25 mg feeding tube BID 05/11/23 05/11/23 valproic acid (as sodium salt) 250 1,000 mg feeding tube BEDTIME 05/11/23 05/11/23 mg/5 mL oral solution valproic acid (as sodium salt) 250 750 mg feeding tube DAILY 05/11/23 05/11/23 mg/5 mL oral solution Previous Rx's ?Medication ?Instructions ?Recorded apixaban 5 mg tablet (Eliquis) 5 mg feeding tube BID 30 days #60 09/17/20 tabs aspirin 81 mg chewable tablet 81 mg feeding tube DAILY@0900 #0 09/17/20 tabs famotidine 40 mg tablet 40 mg feeding tube DAILY@0900 #0 09/17/20 tabs hydrocortisone 5 mg sprinkle 10 mg (2 x 5 mg) PO TID #30 caps 09/26/20 capsule amoxicillin 600 mg-potassium 7.3 ml PO BID 4 days #58.4 mL 05/14/23 clavulanate 42.9 mg/5 mL oral suspension (Augmentin ES-) amoxicillin 600 mg-potassium 7.3 ml feeding tube BID 7 days 10/11/23 clavulanate 42.9 mg/5 mL oral #105 mL suspension (Augmentin ES-) Allergies Allergy/AdvReac Type Severity Reaction Status Date / Time atenolol Allergy Unknown Verified 10/13/23 14:14 duloxetine [From Cymbalta] Allergy Unknown Verified 10/13/23 14:14 ibuprofen Allergy Unknown Verified 10/13/23 14:14 levofloxacin [From Levaquin] Allergy Unknown Verified 10/13/23 14:14 Review of Systems Review of Systems: ROS unable to be obtained due to altered mental status [facility] Past Medical History Attestation statement: The following information was validated with the patient. Source: old records reviewed Medical History PEG tube malfunction Glaucoma Alzheimer disease G tube feedings Dysphagia Deep vein thrombosis (DVT) Mood disorder Afib HTN (hypertension) Advanced dementia Social History Social History Household Members: Unknown / Unable to assess Housing: Unknown / Unable to assess Do you presently have visiting nurse or other home services: No (unknown) Unable to assess alcohol history related to: Unable to respond Alcohol intake: unknown Comment: 1:1 Patient Tobacco Use Status: Tobacco use Unknown Smoked in Last 30 Days: No Use of substances other than those prescribed or required for medical reasons: No Advance Directives: Yes Advance Directives on File: Yes Advance Directives Date on File: 08/05/20 Do you have a plan to hurt others: No Plan service: No Current occupational status: retired Physical Exam ED Vital Signs: Vital Signs - 24 hr 10/13/23 14:10 10/13/23 14:20 10/13/23 14:42 Temperature 97.5 F Pulse Rate 98 98 Respiratory Rate 20 20 Blood Pressure 113/47 L 113/47 L Pulse Oximetry 96 97 Oxygen Delivery Method Room Air Room Air BMI result Body Mass Index 27.1 Appearance: Alert. confused No acute distress. Eyes: Pupils equal, round and reactive to light. ENT: Pharynx normal. Neck: Normal inspection. Neck supple. CVS: Normal heart rate and rhythm. Pulses normal. Respiratory: No respiratory distress. Breath sounds normal. Abdomen: Soft and nontender. feeding tube site not bleeding no signs of infection Skin: Skin warm and dry. Normal skin color. Extremities: No lower extremity edema. Neuro: cannot participate with exam localizes to pain Medications Administered Discontinued Medications Generic Name Dose Route Start Last Admin Trade Name Freq PRN Reason Stop Dose Admin Diatrizoate Meglum/Diatrizoate Sod 30 ml 10/13/23 15:24 10/13/23 15:24 Diatrizoate Meglumine, Sodium 30 Ml Solution PO 10/13/23 15:25 30 ml ONCE ONE Administration Medical Decision Making Medical Decision Making MDM Narrative: 67 yo male with PMH of afib on eliquis, dementia, PEG tube 2020, constipation, HTN here s/p dislodged feeding tube there is no signs of infection will attempt to place and if unable to will ask surgery to evaluate. He does not grimace to palpation. Differential Diagnosis Differential Diagnoses: The differential diagnosis associated with the presentation includes disloged feeding tube Consult Healthcare Provider Management of the patient was discussed with: Rn Clinical Quality Dr. Scherer placed feeding tube no issue Independent Historian Clinical information obtained from an independent historian. History obtained from or confirmed by: EMS External Record Review External record reviewed: Inpatient record Discharge Plan Discharge Clinical Impression: PEG tube malfunction Patient Disposition: Home, Self-Care Instructions: How to Use and Care for Your PEG Tube (ED) Additional Instructions: feeding tube replaced no issues confirmed by xray return for any worsening symptoms or concerns. Prescriptions: No Action Eliquis 5 mg tablet 5 mg feeding tube BID 30 Days Qty: 60 0RF famotidine 40 mg Tablet 40 mg feeding tube DAILY@0900 Qty: 0 0RF aspirin 81 mg Tablet,Chewable 81 mg feeding tube DAILY@0900 Qty: 0 0RF hydrocortisone 5 mg capsule, sprinkle 10 mg PO TID Qty: 30 0RF atropine 1 % Drops 2 drp SUBLINGUAL Q2H PRN (Reason: Secretions) (DME) calcium alginate 4 X 4 Bandage TOPICAL Rx Instructions: CLEASE LEFT AND RIGHT HEEL WITH NS. PAT DRY APPLY ALGINATE COVER AND BORDER GAUZE EVERY SHIFT. Osmolite 1.2 Cristobal 0.06 gram-1.2 kcal/mL Liquid See Rx Instructions .ROUTE .COMPLEX Rx Instructions: 90mL/hr for 20 hours via G-tube; Use at 2pm and down at 10am or until total volume infused. water flush via G-tube pump: 1500 mL in 20 hrs via G-tube amoxicillin-pot clavulanate [Augmentin ES-600] 600-42.9 mg/5 mL suspension for reconstitution 7.3 ml feeding tube BID 7 Days Qty: 105 0RF docusate sodium 50 mg/5 mL Liquid 100 mg feeding tube BID acetaminophen 650 mg Suppository 650 mg [place] Q6H PRN (Reason: Fever Or Pain) acetaminophen 160 mg/5 mL Liquid 640 mg PO QID PRN (Reason: Fever Or Pain) trazodone 50 mg Tablet 25 mg feeding tube BID polyethylene glycol 3350 [Miralax] 17 gram Powder In Packet 17 g feeding tube DAILY midodrine 5 mg Tablet 5 mg PO TID PRN (Reason: low SBP) Rx Instructions: do not give last dose of day after 6PM or within 4 hrs of bedtime; for SBP <100 sennosides [senna] 8.8 mg/5 mL Syrup 10 ml PO BID magnesium hydroxide [Milk of Magnesia] 400 mg/5 mL Suspension 30 ml PO DAILY PRN (Reason: Constipation) valproic acid (as sodium salt) 250 mg/5 mL Solution 1,000 mg feeding tube BEDTIME bisacodyl 10 mg Suppository 10 mg [place] DAILY PRN (Reason: Constipation) oxycodone 5 mg Tablet 2.5 mg feeding tube BID PRN (Reason: Severe Pain (Scale Score 7-10)) escitalopram oxalate 20 mg Tablet 20 mg feeding tube BEDTIME cholecalciferol (vitamin D3) [Vitamin D3] 125 mcg (5,000 unit) Tablet 1,250 mcg feeding tube Q28D [place] 7-7-1.5 gram Powder In Packet 1 ea PO BID Rx Instructions: mix with 120 ml water ProSource Plus 15-100 gram-kcal/30 mL Liquid 1 ea feeding tube DAILY valproic acid (as sodium salt) 250 mg/5 mL solution 750 mg feeding tube DAILY simvastatin 20 mg tablet 20 mg feeding tube DAILY amoxicillin-pot clavulanate [Augmentin ES-600] 600-42.9 mg/5 mL suspension for reconstitution 7.3 ml PO BID 4 Days Qty: 58.4 0RF Print Language: [place]
[2023-10-13 15:56] VITALS: BP 117/78; PULSE 91; RESP 20; O2SAT 98
--- NOTE | 2023-10-13 15:56 | PC.NURSE ---
G Tube replaced by Dr Scherer 16fr CELESTE tube, Pt cleaned/repositioned, VSS. Plan to return to [facility]
--- NOTE | 2023-10-13 16:41 | PC.NURSE ---
Call placed to [facility] 2nd floor, spoke with RN Linda. Full report given regarding Pts presentation and care provided at todays visit. Pts G-tube was reinstated with enrrique matson. VSS, afebrile Pt en route via [place].
[2023-10-13 16:50] VITALS: BP 117/78; PULSE 91; RESP 20; TEMP 37.1; O2SAT 98
== END 2023-10-13 16:51 | disposition home or self-care (01) ==
PROVIDERS: Emergency Provider Emergency Medicine; PCP Emergency Medicine
DX: K94.23 Gastrostomy malfunction (principal); I10 Essential (primary) hypertension; Z79.899 Other long term (current) drug therapy
CPT/HCPCS: 43762; 74018; 99284

== ENCOUNTER → 2023-10-13 14:32 | Outpatient (BNV) | payer MEDICAID, SELFPAY | PROVIDERS: Emergency Provider Emergency Medicine; PCP Emergency Medicine; Visit Provider Surgery | DX: K94.23 Gastrostomy malfunction (principal) | CPT/HCPCS: 43762; 99283 ==

== ENCOUNTER 2024-05-20 07:51 | Emergency (ER) | payer OTHER, MEDICAID, SELFPAY ==
[2024-05-20] VITALS (18 sets, daily range): BP systolic 73–122; BP diastolic 38–91; PULSE 60–130; RESP 14–39; TEMP 36.6–39.8; O2SAT 88–99; BMI 31.1
--- NOTE | ~2024-05-20 | CT_ITS ---
EXAMINATION: CT CHEST WITH IV CONTRAST, CT ABDOMEN PELVIS WITH IV CONTRAST INDICATION: unexplained fevers, severe sepsis, altered, bandemia COMPARISON: Comparison is made with the prior examination dated 05/11/2023.. TECHNIQUE: CT scan of the chest, abdomen and pelvis was performed following administration of 85 mL Omnipaque 350 using standard departmental protocol. Coronal and sagittal reformatted images were generated and reviewed. The patient received oral contrast material. This CT exam was performed with one or more of the following dose reduction techniques: automated exposure control, adjustment of the mA and/or kV according to patient size, use of iterative reconstruction technique. DLP: 1730 mGy-cm CHEST: THYROID: The thyroid is unremarkable. LUNGS: There are groundglass and airspace opacities in the right upper lobe and both lower lobes, consistent with pneumonia. MEDIASTINUM: There is no mediastinal lymphadenopathy. NOLAN: There is no hilar lymphadenopathy. CARDIOVASCULATURE: The heart is normal in size. There is no pericardial effusion. The thoracic aorta is normal in caliber. DEGREE OF CORONARY CALCIFICATION: moderate PLEURA: There is no pleural effusion. No pneumothorax. MAIN AIRWAYS: The mainstem bronchi and proximal branches are patent. AXILLA: There is no axillary lymphadenopathy. SOFT TISSUES: Unremarkable. BONES: There is degenerative disc disease of the spine. ABDOMEN: LIVER: The liver is normal in size and contour. No liver mass is identified. The hepatic and portal veins are patent. GALLBLADDER / BILE DUCTS: There are multiple calculi in the gallbladder. There is no intra or extrahepatic biliary ductal dilatation. SPLEEN: The spleen is normal in size. No focal splenic lesion is identified. PANCREAS: The pancreas is unremarkable in appearance. ADRENAL GLANDS: Within normal limits. KIDNEYS/RETROPERITONEUM: There are slightly delayed nephrograms. No renal calculi are identified. There is no hydronephrosis. No renal masses are identified. LYMPH NODES: No abdominal or pelvic lymphadenopathy. VASCULATURE: The abdominal aorta is normal in caliber. MESENTERY/PERITONEUM: No free fluid. No masses. There is no free intraperitoneal gas. STOMACH: A gastrostomy tube is noted in place. SMALL BOWEL: The small bowel is normal in caliber. COLON: The colon is unremarkable. APPENDIX: The appendix is not seen, however no inflammatory changes are seen adjacent to the cecum. URINARY BLADDER/PELVIC ORGANS: The urinary bladder is unremarkable. The prostate is enlarged. BONES / SOFT TISSUES: A right hip prosthesis is noted. There is degenerative disc disease of the spine. CT/CT abdomen pelvis w IV con IMPRESSION: 1. Groundglass and airspace opacities in the right upper lobe and both lower lobes, consistent with pneumonia. 2. Cholelithiasis. 3. Delayed bilateral nephrograms. Correlation with renal function is recommended. Electronically signed by: Dwain Alfonso MD 05/20/2024 10:17 AM EDT RP
--- NOTE | ~2024-05-20 | XR_ITS ---
EXAMINATION: XR CHEST CLINICAL INFORMATION: fever, aspiration risk COMPARISON: October 11, 2023. TECHNIQUE: Frontal view of the chest was obtained. FINDINGS: No hyperinflation. No consolidation, pleural effusion or pneumothorax. Cardiomediastinal silhouette size is normal. Multilevel thoracic spondylosis. Degenerative changes in the shoulders. XR/XR chest 1V IMPRESSION: No acute airspace disease. Electronically signed by: Ten Wallis MD 05/20/2024 08:57 AM EDT
--- NOTE | 2024-05-20 07:57 | ECG_ITS ---
Test Reason : weakness Blood Pressure : */* mmHG Vent. Rate : 114 BPM Atrial Rate : 114 BPM P-R Int : 162 ms QRS Dur : 76 ms QT Int : 322 ms P-R-T Axes : * -57 136 degrees QTcB Int : 443 ms Sinus tachycardia Left axis deviation Abnormal QRS-T angle, consider primary T wave abnormality Abnormal ECG When compared with ECG of 11-Oct-2023 16:34, Vent. rate has increased by 38 bpm Nonspecific T wave abnormality now evident in Inferior leads Referred By: Renu Stover Electronically Signed By: Eris Sagastume
--- NOTE | 2024-05-20 08:15 | ED.WEAKNESS ---
HPI - Weakness General Chief complaint: Altered Mental Status Stated complaint: sepsis alert, 82/44, 130s HR, 101.1 fever Source: EMS and old records reviewed Mode of arrival: EMS Limitations: altered mental status History of Present Illness ED Provider: SIMONA HPI Narrative: 68 yo male with PMH of dementia, afib on eliquis, adrenal insufficiency takes 10mg hydrocortisone TID, HTN, PEG tube with feedings since 2020, Full CODE, comes from [facility] with ?unknown complaints EMS states they were never given a report. Patient was found to be lethargic, hot to touch, hypoxic on RA with sats in 80s, BP found to be hypotensive in 80s - he was given IVF, 4L NC with improvement in symptoms. Patient cannot elicit a complaint on arrival and is groaning with coarse cough and lung sounds. sepsis alert activated - has hx of enterococcus UTI (S to vancomycin) and aspiration pneumonia MD Complaint: generalized weakness Onset (ago): unknown Duration: constant Location: generalized Migration: none Severity: moderate Relieving factors: none Exacerbating factors: none Context: other Associated symptoms: denies other symptoms Related Data Home Medications ?Medication ?Instructions ?Recorded ?Confirmed atropine 1 % eye drops 2 drp sublingual Q2H PRN Secretions 02/07/21 05/20/24 calcium alginate 4 X 4 bandage 02/07/21 02/07/21 nutritional supplements 0.06 See Rx Instructions .Route .COMPLEX 02/07/21 05/20/24 gram-1.2 kcal/mL oral liquid (Osmolite 1.2 Cristobal) acetaminophen 160 mg/5 mL oral 640 mg PO QID PRN Fever Or Pain 05/11/23 05/20/24 liquid acetaminophen 650 mg rectal 650 mg WA Q6H PRN Fever Or Pain 05/11/23 05/20/24 suppository bisacodyl 10 mg rectal suppository 10 mg WA DAILY PRN Constipation 05/11/23 05/20/24 cholecalciferol (vitamin D3) 125 1,250 mcg feeding tube Q28D 05/11/23 05/20/24 mcg (5,000 unit) tablet (Vitamin D3) docusate sodium 50 mg/5 mL oral 100 mg feeding tube DAILY 05/11/23 05/20/24 liquid escitalopram oxalate 20 mg tablet 15 mg feeding tube BEDTIME 05/11/23 05/20/24 magnesium hydroxide 400 mg/5 mL 30 ml PO DAILY PRN Constipation, 05/11/23 05/20/24 oral suspension (Milk of Magnesia) NO BM IN 3 DAYS polyethylene glycol 3350 17 gram 17 g feeding tube DAILY 05/11/23 05/20/24 oral powder packet (Miralax) sennosides 8.8 mg/5 mL oral syrup 10 ml PO BID 05/11/23 05/20/24 (senna) simvastatin 20 mg tablet 20 mg feeding tube DAILY 05/11/23 05/20/24 trazodone 50 mg tablet 25 mg feeding tube BID 05/11/23 05/20/24 valproic acid (as sodium salt) 250 1,000 mg feeding tube BEDTIME 05/11/23 05/20/24 mg/5 mL oral solution valproic acid (as sodium salt) 250 750 mg feeding tube DAILY 05/11/23 05/20/24 mg/5 mL oral solution famotidine 40 mg/5 mL (8 mg/mL) 40 mg PO DAILY 05/20/24 05/20/24 oral suspension metoclopramide HCl 5 mg/5 mL oral 10 mg feeding tube TID 05/20/24 05/20/24 solution Previous Rx's ?Medication ?Instructions ?Recorded apixaban 5 mg tablet (Eliquis) 5 mg feeding tube BID 30 days #60 09/17/20 tabs aspirin 81 mg chewable tablet 81 mg feeding tube DAILY@0900 #0 09/17/20 tabs hydrocortisone 5 mg sprinkle 10 mg (2 x 5 mg) PO TID #30 caps 09/26/20 capsule Allergies Allergy/AdvReac Type Severity Reaction Status Date / Time atenolol Allergy Unknown Verified 05/20/24 07:56 duloxetine [From Cymbalta] Allergy Unknown Verified 05/20/24 07:56 ibuprofen Allergy Unknown Verified 05/20/24 07:56 levofloxacin [From Levaquin] Allergy Unknown Verified 05/20/24 07:56 Review of Systems Review of Systems: ROS unable to be obtained due to altered mental status PMFSH Past Medical History Attestation statement: The following information was validated with the patient. Source: old records reviewed Medical History Porcelain gallbladder PEG tube malfunction Glaucoma Alzheimer disease G tube feedings Dysphagia Deep vein thrombosis (DVT) Mood disorder Afib HTN (hypertension) Advanced dementia Social History Social History Household Members: Unknown / Unable to assess Housing: Unknown / Unable to assess Do you presently have visiting nurse or other home services: No (unknown) Unable to assess alcohol history related to: Unable to respond Alcohol intake: unknown Comment: 1:1 Patient Tobacco Use Status: Tobacco use Unknown Use of substances other than those prescribed or required for medical reasons: Unable to respond Advance Directives: Yes Advance Directives on File: Yes Advance Directives Date on File: 08/05/20 service: No Current occupational status: retired Physical Exam Vital Signs: Vital Signs: Last Vital Signs Temp 98.2 F 05/20/24 11:55 Pulse 65 05/20/24 11:55 Resp 25 H 05/20/24 11:55 BP 113/53 L 05/20/24 11:55 Pulse Ox 97 05/20/24 11:55 O2 Del Method Room Air 05/20/24 11:55 Oxygen Flow Rate 3 05/20/24 07:56 BMI result Body Mass Index 31.1 Appearance: Weak and lethargic appearing but does have strong cough and withdraws from stimuli. Mild acute distress. Eyes: Pupils equal, round and reactive to light. ENT: Pharynx dry MM Neck: Normal inspection. Neck supple. CVS: tachycardic heart rate and rhythm. Pulses normal. Respiratory: No respiratory distress. Breath sounds very coarse with junky cough and decreased lung sounds both bases Abdomen: Soft and nontender. Does not grimace or withdraw G tube site c/d/i Skin: Skin warm and dry. Normal skin color. Normal skin turgor. Extremities: No lower extremity edema. Neuro: groans and localizes to pain also withdraws Course Course Course Narrative: 914am patient still hypotensive after 2L of IVF - levophed ordered 915am no obvious source at this time CT scan of abdomen and chest ordered he is altered and cannot provide history Reevaluation(s) Reevaluation #1: discussed with our ICU provider we have no ICU beds at this time HCP sister notified of care and likely transfer to different hospital for ICU level of care [phone] Reevaluation #2: patient still on pressors 0.9 now off O2 no hypoxia 94% RA BP still in 90s Reevaluation #3: [facility] unclear if beds available instructed us to call around [facility] closed call to [facility] ICU 1140am [place] closed Additional Reevaluation(s): repeat call to [facility] call back: accepted to [facility] ICU if beds available 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 Salcedo Medications Administered Generic Name Dose Route Start Last Admin Trade Name Freq PRN Reason Stop Dose Admin Norepinephrine Bitartrate 8 mg in 250 mls @ 0 mls/hr 05/20/24 09:15 05/20/24 10:01 Levophed IVCONT 0.09 mcg/kg/min .Q0M ARPIT 16.1 mls/hr Titration Protocol Per Protocol Discontinued Medications Generic Name Dose Route Start Last Admin Trade Name Freq PRN Reason Stop Dose Admin Hydrocortisone Sodium Succinate 100 mg 05/20/24 08:04 05/20/24 08:18 Hydrocortisone Sod Succ/Pf 100 Mg Vial IVPUSH 05/20/24 08:05 100 mg ONCE ONE Administration Acetaminophen 1,000 mg in 100 mls @ 400 mls/hr 05/20/24 07:57 05/20/24 08:43 Ofirmev IV 05/20/24 08:11 Infused ONCE ONE Infusion Piperacillin Sod/Tazobactam 50 mls @ 100 mls/hr 05/20/24 07:57 05/20/24 08:48 Sod 3.375 gm/ Sodium Chloride IV 05/20/24 08:26 Infused ONCE ONE Infusion Vancomycin HCl 2,000 mg in 500 mls @ 250 mls/hr 05/20/24 07:57 05/20/24 08:58 Vancomycin/Ns IV 05/20/24 09:56 250 mls/hr ONCE ONE Administration Lactated Ringer's 2,862 mls @ 2,862 mls/hr 05/20/24 07:59 05/20/24 09:24 Lr 30 ml/kg infuse over 1 hr (2862 ml) 05/20/24 08:58 Infused IV Infusion .Q1H ONE Iohexol 100 ml 05/20/24 09:54 05/20/24 09:54 Iohexol 350 Mg/Ml 100 Ml Infus..Btl IV 05/20/24 09:55 85 ml ONCE ONE Administration Medical Decision Making Medical Decision Making MDM Narrative: 68 yo male with PMH of dementia, afib on eliquis, adrenal insufficiency takes 10mg hydrocortisone TID, HTN, PEG tube with feedings since 2020, Full CODE, prior aspiration and UTI who presents weak, lethargic, hypoxic, tachycardic, he is hot to the touch at this time given concern for sepsis and his known adrenal insufficiency I have ordered LR 30cc/kg bolus, empiric zosyn for aspiration, empiric vanco for enterococcus, IV tylenol and 100mg hydrocortisone. Possible UTI, viral syndrome, pneumonia. Differential Diagnosis Differential Diagnoses: The differential diagnosis associated with the presentation includes UTI, pneumonia, viral syndrome Admission/Observation Consideration of admission/observation: Escalation of care including admission/observation considered transfer to ICU beds Lab Data [facility] Lab Attestation statement: I reviewed the patient's lab results. 05/20/24 08:11 05/20/24 08:11 Labs: Lab Results 05/20/24 05/20/24 05/20/24 Range/Units 08:11 08:16 08:17 WBC 9.3 (4.8-10.8) X10*3/uL RBC 4.52 L (4.60-5.80) X10*6/uL Hgb 12.6 L (14.0-18.0) g/dl Hct 37.8 L (42.0-52.0) % MCV 83.6 (80.0-98.0) fL MCH 27.9 (27.0-33.0) pg MCHC 33.3 (31.0-36.0) g/dl RDW 15.0 (11.0-16.0) % Plt Count 122 L (160-400) X10*3/uL MPV 10.3 (9.4-12.4) fL Immature Gran % (Auto) Cancelled Neut % (Auto) Cancelled Lymph % (Auto) Cancelled [place] % (Auto) Cancelled Eos % (Auto) Cancelled Baso % (Auto) Cancelled Lymph # (Auto) Cancelled [place] # (Auto) Cancelled Eos # (Auto) Cancelled Baso # (Auto) Cancelled Abs Immat Gran (auto) Cancelled Absolute Neuts (auto) Cancelled Absolute Nucleated RBC 0.000 (0.0-0.012) X10*3/uL Nucleated RBC % (auto) 0.0 (0.0-0.2) /100WBC Neutrophils % (Manual) 73 (45-73) % Band Neutrophils % 10 H (3-5) % Lymphocytes % (Manual) 1 L (20-40) % Monocytes % (Manual) 16 H (2-11) % Abs Neuts (Manual) 7.7 (2.0-8.3) X10*3/uL Lymphocytes # (Manual) 0.1 L (1.2-4.9) X10*3/uL Monocytes # (Manual) 1.5 H (0.1-1.2) X10*3/uL Toxic Vacuolation PRESENT Platelet Estimate DECREASED (NORMAL) Plt Morphology Comment NORMAL RBC Morphology NORMAL VBG pH 7.52 H (7.32-7.43) VBG pCO2 30 mmHg VBG pO2 76 mmHg VBG HCO3 24 (22-26) mmol/L VBG O2 Saturation 97.0 % VBG Base Excess 3.1 mmol/L Sodium 139 (135-145) mmol/L Potassium 3.8 (3.3-5.1) mmol/L Chloride 110 H (96-108) mmol/L Carbon Dioxide 22 (22-29) mmol/L Anion Gap 11 L (12-20) BUN 14 (9-16) mg/dL Creatinine 0.80 (0.5-1.4) mg/dL Estim Creat Clear Calc 102.1 Estimated GFR > 60 Random Glucose 95 (60-115) mg/dL Lactic Acid 2.2 H* (0.5-2.0) mmol/L Lactic Acid F/U @ 2Hr (0.5-2.0) mmol/L Calcium 8.6 D (8.4-10.2) mg/dL Magnesium 1.7 (1.6-2.6) mg/dL Total Bilirubin 0.6 (0.0-1.0) mg/dL Direct Bilirubin 0.3 (0.0-0.5) mg/dL AST 88 H (5-37) U/L ALT 31 (0-40) U/L Alkaline Phosphatase 74 (39-117) U/L Troponin I High Sens 119.3 H* D (<3.5-35.0) ng/L B-Natriuretic Peptide 93 (<100) pg/mL Total Protein 6.7 (6.5-8.0) g/dL Albumin 3.1 L (3.5-5.0) g/dL Urine Color Urine Appearance Urine pH (5.0-9.0) Ur Specific [place] (1.005-1.025) Urine Protein (Neg-Trace) mg/dL Urine Glucose (UA) (Negative) mg/dL Urine Ketones (Negative) mg/dL Urine Blood (Negative) Urine Nitrite (Negative) Ur Leukocyte Esterase (Negative) Urine RBC (0-2) /HPF Urine WBC (0-5) /HPF Ur Squamous Epith Cells (0-2) /HPF Urine Bacteria (None Seen) Hyaline Casts (0-2) /LPF Valproic Acid 64.0 (50.0-100.0) mcg/mL Influenza Type A (PCR) NEGATIVE (Negative) Influenza Type B (PCR) NEGATIVE (Negative) RSV RNA Qual (PCR) NEGATIVE (Negative) SARS-CoV-2 RNA (RT-PCR) NEGATIVE (Negative) 05/20/24 05/20/24 Range/Units 08:37 10:39 WBC (4.8-10.8) X10*3/uL RBC (4.60-5.80) X10*6/uL Hgb (14.0-18.0) g/dl Hct (42.0-52.0) % MCV (80.0-98.0) fL MCH (27.0-33.0) pg MCHC (31.0-36.0) g/dl RDW (11.0-16.0) % Plt Count (160-400) X10*3/uL MPV (9.4-12.4) fL Immature Gran % (Auto) Neut % (Auto) Lymph % (Auto) [place] % (Auto) Eos % (Auto) Baso % (Auto) Lymph # (Auto) [place] # (Auto) Eos # (Auto) Baso # (Auto) Abs Immat Gran (auto) Absolute Neuts (auto) Absolute Nucleated RBC (0.0-0.012) X10*3/uL Nucleated RBC % (auto) (0.0-0.2) /100WBC Neutrophils % (Manual) (45-73) % Band Neutrophils % (3-5) % Lymphocytes % (Manual) (20-40) % Monocytes % (Manual) (2-11) % Abs Neuts (Manual) (2.0-8.3) X10*3/uL Lymphocytes # (Manual) (1.2-4.9) X10*3/uL Monocytes # (Manual) (0.1-1.2) X10*3/uL Toxic Vacuolation Platelet Estimate (NORMAL) Plt Morphology Comment RBC Morphology VBG pH (7.32-7.43) VBG pCO2 mmHg VBG pO2 mmHg VBG HCO3 (22-26) mmol/L VBG O2 Saturation % VBG Base Excess mmol/L Sodium (135-145) mmol/L Potassium (3.3-5.1) mmol/L Chloride (96-108) mmol/L Carbon Dioxide (22-29) mmol/L Anion Gap (12-20) BUN (9-16) mg/dL Creatinine (0.5-1.4) mg/dL Estim Creat Clear Calc Estimated GFR Random Glucose (60-115) mg/dL Lactic Acid (0.5-2.0) mmol/L Lactic Acid F/U @ 2Hr 2.9 H* (0.5-2.0) mmol/L Calcium (8.4-10.2) mg/dL Magnesium (1.6-2.6) mg/dL Total Bilirubin (0.0-1.0) mg/dL Direct Bilirubin (0.0-0.5) mg/dL AST (5-37) U/L ALT (0-40) U/L Alkaline Phosphatase (39-117) U/L Troponin I High Sens 187.2 H* D (<3.5-35.0) ng/L B-Natriuretic Peptide (<100) pg/mL Total Protein (6.5-8.0) g/dL Albumin (3.5-5.0) g/dL Urine Color Dark Yellow Urine Appearance Clear Urine pH 5.5 (5.0-9.0) Ur Specific [place] 1.020 (1.005-1.025) Urine Protein Negative (Neg-Trace) mg/dL Urine Glucose (UA) Negative (Negative) mg/dL Urine Ketones Trace (Negative) mg/dL Urine Blood Small (1+) H (Negative) Urine Nitrite Negative (Negative) Ur Leukocyte Esterase Trace H (Negative) Urine RBC 3-5 H (0-2) /HPF Urine WBC 0-5 (0-5) /HPF Ur Squamous Epith Cells 0-2 (0-2) /HPF Urine Bacteria None Seen (None Seen) Hyaline Casts 0-2 (0-2) /LPF Valproic Acid (50.0-100.0) mcg/mL Influenza Type A (PCR) (Negative) Influenza Type B (PCR) (Negative) RSV RNA Qual (PCR) (Negative) SARS-CoV-2 RNA (RT-PCR) (Negative) Independent Interpretation I performed an independent interpretation of an: EKG, Plain X-Ray and CT Scan Interpretation: Rate: 114 Rhythm: sinus tach [place]: left Normal P waves. Normal ROD. Normal QRS complex. ST T wave : no JUNE, sig artifact noted, nonspecific ST T wave changes anterior leads qTC: 443 prior studies: no acute ischemia The study has been interpreted contemporaneously by me. . Radiology Impression Discussion of test interpretation with radiology: I have reviewed the radiologist's reading. Radiologist Impression: INDICATION: unexplained fevers, severe sepsis, altered, bandemia COMPARISON: Comparison is made with the prior examination dated 05/11/2023.. TECHNIQUE: CT scan of the chest, abdomen and pelvis was performed following administration of 85 mL Omnipaque 350 using standard departmental protocol. Coronal and sagittal reformatted images were generated and reviewed. The patient received oral contrast material. This CT exam was performed with one or more of the following dose reduction techniques: automated exposure control, adjustment of the mA and/or kV according to patient size, use of iterative reconstruction technique. DLP: 1730 mGy-cm CHEST: THYROID: The thyroid is unremarkable. LUNGS: There are groundglass and airspace opacities in the right upper lobe and both lower lobes, consistent with pneumonia. MEDIASTINUM: There is no mediastinal lymphadenopathy. NOLAN: There is no hilar lymphadenopathy. CARDIOVASCULATURE: The heart is normal in size. There is no pericardial effusion. The thoracic aorta is normal in caliber. DEGREE OF CORONARY CALCIFICATION: moderate PLEURA: There is no pleural effusion. No pneumothorax. MAIN AIRWAYS: The mainstem bronchi and proximal branches are patent. AXILLA: There is no axillary lymphadenopathy. SOFT TISSUES: Unremarkable. BONES: There is degenerative disc disease of the spine. ABDOMEN: LIVER: The liver is normal in size and contour. No liver mass is identified. The hepatic and portal veins are patent. GALLBLADDER / BILE DUCTS: There are multiple calculi in the gallbladder. There is no intra or extrahepatic biliary ductal dilatation. SPLEEN: The spleen is normal in size. No focal splenic lesion is identified. PANCREAS: The pancreas is unremarkable in appearance. ADRENAL GLANDS: Within normal limits. KIDNEYS/RETROPERITONEUM: There are slightly delayed nephrograms. No renal calculi are identified. There is no hydronephrosis. No renal masses are identified. LYMPH NODES: No abdominal or pelvic lymphadenopathy. VASCULATURE: The abdominal aorta is normal in caliber. MESENTERY/PERITONEUM: No free fluid. No masses. There is no free intraperitoneal gas. STOMACH: A gastrostomy tube is noted in place. SMALL BOWEL: The small bowel is normal in caliber. COLON: The colon is unremarkable. APPENDIX: The appendix is not seen, however no inflammatory changes are seen adjacent to the cecum. URINARY BLADDER/PELVIC ORGANS: The urinary bladder is unremarkable. The prostate is enlarged. BONES / SOFT TISSUES: A right hip prosthesis is noted. There is degenerative disc disease of the spine. CT/CT abdomen pelvis w IV con IMPRESSION: 1. Groundglass and airspace opacities in the right upper lobe and both lower lobes, consistent with pneumonia. 2. Cholelithiasis. 3. Delayed bilateral nephrograms. Correlation with renal function is recommended. Independent Historian Clinical information obtained from an independent historian. History obtained from or confirmed by: EMS External Record Review External record reviewed: Inpatient record and Outpatient record Critical Care Time Critical Care Time Critical Care Time: Yes Total Critical Care Time: 90 Attestation: repeat attempts at ICU transfer, sepsis protocol including fluids and pressor support, family phone calls, review of records I attest to this time spent taking care of the patient Discharge Plan Discharge Clinical Impression: Bandemia, Weakness, Hypoxia Sepsis Qualifiers: Sepsis type: sepsis due to unspecified organism Sepsis acute organ dysfunction status: with acute organ dysfunction Severe sepsis acute organ dysfunction type: encephalopathy Severe sepsis shock status: with septic shock Qualified Code(s): A41.9 - Sepsis, unspecified organism Pneumonia Qualifiers: Pneumonia type: due to unspecified organism Laterality: right Lung location: upper lobe of lung Qualified Code(s): J18.9 - Pneumonia, unspecified organism Patient Disposition: Xfer Acute Care Hospital Transfer Details: [facility] Prescriptions: No Action Eliquis 5 mg tablet 5 mg feeding tube BID 30 Days Qty: 60 0RF aspirin 81 mg Tablet,Chewable 81 mg feeding tube DAILY@0900 Qty: 0 0RF hydrocortisone 5 mg capsule, sprinkle 10 mg PO TID Qty: 30 0RF atropine 1 % Drops 2 drp SUBLINGUAL Q2H PRN (Reason: Secretions) (DME) calcium alginate 4 X 4 Bandage TOPICAL Rx Instructions: CLEASE LEFT AND RIGHT HEEL WITH NS. PAT DRY APPLY ALGINATE COVER AND BORDER GAUZE EVERY SHIFT. Osmolite 1.2 Cristobal 0.06 gram-1.2 kcal/mL Liquid See Rx Instructions .ROUTE .COMPLEX Rx Instructions: 60mL/hr BID via G-tube; HAND AT 2 PM AND TAKE DOWN AT 12 PM FOR A TOTAL OF 1320 ML AND 120 ML OF WATER FLUSHES EVERY 2 HOURS FOR A TOTAL OF 1320 ML OVER 22 HOURS metoclopramide HCl 5 mg/5 mL Solution 10 mg feeding tube TID famotidine 40 mg/5 mL (8 mg/mL) Suspension For Reconstitution 40 mg PO DAILY docusate sodium 50 mg/5 mL Liquid 100 mg feeding tube DAILY acetaminophen 650 mg Suppository 650 mg WA Q6H PRN (Reason: Fever Or Pain) acetaminophen 160 mg/5 mL Liquid 640 mg PO QID PRN (Reason: Fever Or Pain) trazodone 50 mg Tablet 25 mg feeding tube BID polyethylene glycol 3350 [Miralax] 17 gram Powder In Packet 17 g feeding tube DAILY sennosides [senna] 8.8 mg/5 mL Syrup 10 ml PO BID magnesium hydroxide [Milk of Magnesia] 400 mg/5 mL Suspension 30 ml PO DAILY PRN (Reason: Constipation, NO BM IN 3 DAYS) valproic acid (as sodium salt) 250 mg/5 mL Solution 1,000 mg feeding tube BEDTIME bisacodyl 10 mg Suppository 10 mg WA DAILY PRN (Reason: Constipation) escitalopram oxalate 20 mg Tablet 15 mg feeding tube BEDTIME cholecalciferol (vitamin D3) [Vitamin D3] 125 mcg (5,000 unit) Tablet 1,250 mcg feeding tube Q28D Rx Instructions: OF EVERY MONTH valproic acid (as sodium salt) 250 mg/5 mL solution 750 mg feeding tube DAILY simvastatin 20 mg tablet 20 mg feeding tube DAILY Print Language: Argentine
[2024-05-20 08:18] LABS: Venous Blood Gas Refer to POC result
[2024-05-20] MEDS: Hydrocortisone Sod Succ/PF 100 MG VIAL IVPUSH (08:18)
[2024-05-20] MEDS: Piperacillin Sodium/Tazobactam 3.375 GM in 0.9 % Sodium Chloride 50 ML IV (08:18)
[2024-05-20 08:20] LABS: VBG Base Excess 3.1 mmol/L; VBG HCO3 24 mmol/L (22-26); VBG pCO2 30 mmHg; VBG pH 7.52 (7.32-7.43); VBG pO2 76 mmHg
[2024-05-20 08:24] LABS: Hematocrit 37.8 % (42.0-52.0); Hemoglobin 12.6 g/dl (14.0-18.0); Mean Corpuscular HGB Conc 33.3 g/dl (31.0-36.0); Mean Corpuscular Hemoglobin 27.9 pg (27.0-33.0); Mean Corpuscular Volume 83.6 fL (80.0-98.0); Mean Platelet Volume 10.3 fL (9.4-12.4); Platelet Count 122 X10*3/uL (160-400); Red Blood Count 4.52 X10*6/uL (4.60-5.80); White Blood Count 9.3 X10*3/uL (4.8-10.8)
[2024-05-20] MEDS: Acetaminophen 1,000 MG/100 ML PIGGYBACK 400 MG IV (08:28)
[2024-05-20 08:39] LABS: Alanine Aminotransferase 31 U/L (0-40); Albumin Level 3.1 g/dL (3.5-5.0); Alkaline Phosphatase 74 U/L (39-117); Anion Gap 11 (12-20); Aspartate Amino Transferase 88 U/L (5-37); Bilirubin Direct 0.3 mg/dL (0.0-0.5); Bilirubin Total 0.6 mg/dL (0.0-1.0); Blood Urea Nitrogen 14 mg/dL (9-16); Calcium 8.6 mg/dL (8.4-10.2); Carbon Dioxide 22 mmol/L (22-29); Chloride 110 mmol/L (96-108); Creatinine Clr Calc Pharmacy 102.1; Estimated Glomerular Filt Rate > 60; Glucose Random 95 mg/dL (60-115); Magnesium 1.7 mg/dL (1.6-2.6); Potassium 3.8 mmol/L (3.3-5.1); Sodium 139 mmol/L (135-145); Total Protein 6.7 g/dL (6.5-8.0)
[2024-05-20 08:43] LABS: B Type Natriuretic Peptide 93 pg/mL (<100)
--- NOTE | 2024-05-20 08:43 | PC.NURSE ---
Pt restless, not redirectable. Difficult to obtain repeat BP.
[2024-05-20 08:45] LABS: Appearance Urine Clear; Color Urine Dark Yellow; Glucose Urine UA Negative (Negative); Leukocyte Esterase Urine Trace (Negative); Nitrite Urine Negative (Negative); PH 5.5 (5.0-9.0); UMIC TRIGGER UACC YES; Urine Blood Small (1+) (Negative); Urine Ketones Trace mg/dL (Negative); Urine Protein Negative (Neg-Trace)
[2024-05-20 08:48] LABS: Lactic Acid 2.2 mmol/L (0.5-2.0)
[2024-05-20 08:51] LABS: Troponin-I High Sensitivity 119.3 ng/L (<3.5-35.0)
[2024-05-20] MEDS: vancomycin/NS 2,000 MG/500 ML PLAST..BAG 250 MG IV (08:58)
[2024-05-20 09:02] LABS: Bacteria Urine None Seen (None Seen); Hyaline Casts Urine 0-2 /LPF (0-2); Squamous Epithelial Cell Urine 0-2 /HPF (0-2); WBC Urine 0-5 /HPF (0-5)
[2024-05-20 09:05] LABS: Neutrophils Percent Manual 73 % (45-73)
[2024-05-20 09:06] LABS: Band Neutrophils Percent 10 % (3-5); Lymphocytes Absolute Manual 0.1 X10*3/uL (1.2-4.9); Lymphocytes Percent Manual 1 % (20-40); Monocytes Absolute Manual 1.5 X10*3/uL (0.1-1.2); Monocytes Percent Manual 16 % (2-11); Neutrophils Absolute Manual 7.7 X10*3/uL (2.0-8.3); RBC Morphology NORMAL
[2024-05-20 09:07] LABS: Platelet Estimate DECREASED (NORMAL); Platelet Morphology Comment NORMAL; Toxic Vacuolation PRESENT
[2024-05-20] MEDS: Norepinephrine Bitartrate/D5W 8 MG/250 ML PLAST..BAG 8.94 MG IVCONT (09:22)
[2024-05-20 09:48] LABS: Influenza A PCR NEGATIVE (Negative); Influenza B PCR NEGATIVE (Negative); Resp Syncy Virus RNA Qual PCR NEGATIVE (Negative); SARS COV2 PCR INHOUSE NEGATIVE (Negative)
[2024-05-20] MEDS: iohexoL 350 MG/ML 100 ML INFUS..BTL IV (09:54)
--- NOTE | 2024-05-20 09:57 | PC.NURSE ---
Pt taken to CT Scan with electro tech and RN escort, tolerated well with no adverse events.
[2024-05-20 10:15] LABS: Reflex Lactate? Lactic Acid Added
--- NOTE | 2024-05-20 10:24 | PHA.MEDREC ---
Pharmacy Consult ? Medication Reconciliation Pharmacy has completed the medication reconciliation. Used list from [facility]
[2024-05-20 11:11] LABS: Troponin-I High Sensitivity 187.2 ng/L (<3.5-35.0); ~Lactic Acid-LAB USE ONLY 2.9 mmol/L (0.5-2.0)
[2024-05-20] MEDS: Lactated Ringers 1,000 ML 80 ML IVCONT (12:18)
--- NOTE | 2024-05-20 12:36 | PC.NURSE ---
Report given to Theresa STEPHENSON at [facility] (room 22, ).
[2024-05-20 12:43] LABS: Reflex Lactate? 2 Y
--- NOTE | 2024-05-20 13:26 | PC.NURSE ---
EMS at bedside packing pt up for transfer to [facility]
== END 2024-05-20 13:38 | disposition short-term general hospital (02) ==
PROVIDERS: Emergency Provider Emergency Medicine; PCP Emergency Medicine
DX: D72.825 Bandemia (principal); R53.1 Weakness; R09.02 Hypoxemia; R00.0 Tachycardia, unspecified; R41.82 Altered mental status, unspecified; I48.91 Unspecified atrial fibrillation; R50.9 Fever, unspecified; Z03.818 Encounter for observation for suspected exposure to other biological agents ruled out; Z79.01 Long term (current) use of anticoagulants; Z79.899 Other long term (current) drug therapy
CPT/HCPCS: 0241U; 36415; 51702; 71045; 71260; 74177; 80048; 80076; 80164; 81001; 82803; 83605; 83735; 83880; 84484; 85007; 85025; 85027; 87040; 87147; 87205; 93005; 96361; 96365; 96366; 96367; 96375; 99285; J0131; J1720; J2543; J3370; J7120; Q9967

== ENCOUNTER → 2024-05-20 07:57 | Outpatient (BNV) | payer OTHER, MEDICAID, SELFPAY | PROVIDERS: Emergency Provider Emergency Medicine; PCP Emergency Medicine; Visit Provider Internal Medicine Cardiovascular Disease | DX: R00.0 Tachycardia, unspecified (principal) | CPT/HCPCS: 93010 ==

== ENCOUNTER → 2024-05-20 07:57 | Outpatient (BNV) | payer OTHER, MEDICAID, SELFPAY | PROVIDERS: Emergency Provider Emergency Medicine; PCP Emergency Medicine; Visit Provider Radiology Diagnostic Radiology | DX: K80.20 Calculus of gallbladder without cholecystitis without obstruction (principal); R91.8 Other nonspecific abnormal finding of lung field; R50.9 Fever, unspecified | CPT/HCPCS: 71045; 71260; 74177 ==